=== PATIENT | male | born 1945 | race Caucasian/White ===

== ENCOUNTER 2022-07-09 11:36 | Emergency (ER) | payer OTHER, SELFPAY ==
[2022-07-09 11:47] VITALS: BP 177/75; PULSE 75; RESP 18; TEMP 36.3; O2SAT 98; BMI 23.7
--- NOTE | 2022-07-09 12:05 | CRLHL7_ITS ---
For Patients: As a result of the Century Cures Act, medical imaging exams and procedure reports are released immediately into your electronic medical record. You may view this report before your referring provider. If you have questions, please contact your health care provider. INDICATION: COUGH, PAIN TECHNIQUE: Chest 1 view. COMPARISON: None. FINDINGS: Cardiovascular and mediastinum: Heart size and vasculature are normal in caliber and appearance. Mediastinum is within normal limits. Lungs and pleural space: Lungs are clear. No sign of infiltrate or mass. No sign of pleural effusion. No pneumothorax. Bones and soft tissues: No significant findings. IMPRESSION: Unremarkable chest. Dictated by: Yazan Rushing MD @ 07/09/2022 12:36:07 (Electronically Signed)
--- NOTE | 2022-07-09 12:13 | ED_ITS ---
HPI - General Adult General Time Seen by Provider: 12:14 Date Seen: 07/09/22 Chief complaint: Extremity Pain/Injury, Upper Stated complaint: Cough, pain in shoulder and upper back Time Seen by Provider: 07/09/22 11:43 Source: patient and RN notes reviewed Mode of arrival: ambulatory Limitations: no limitations History of Present Illness HPI narrative: Patient is a 77-year-old diabetic male coming in with concern of possible collapsed left lung. He has been coughing for weeks, probably a month. The cough was worse but he continues to cough. For 4 days he has had some left posterior shoulder pain, upper back pain. It is not hurting with range of motion of his shoulder. He was noticing it more with position changes like sitting up or getting up to walk. Can not really say there was pleuritic. Since he has got here it is actually much better. He has had a prior stroke and a history of a heart attack. He was talking to his sister about the pain and s he has had a collapsed lung before and told him that it may be something of that nature as it sounded similar to her collapsed lung before. He himself has never had a pneumothorax. He went online and did some reading and did become concerned about a collapsed lung. He is not short of breath. He has had no GI symptomatology with this. When he became sick with a cough, had some nasal congestion but never had a fever. Again, right now is not really having any symptoms. Related Data Home Medications Medication Instructions Recorded Confirmed clopidogrel 75 mg tablet mg 07/09/22 glimepiride 1 mg tablet mg 07/09/22 metformin 500 mg tablet,extended mg PO 07/09/22 release 24 hr metoprolol succinate 100 mg mg PO 07/09/22 tablet,extended release 24 hr ramipril 10 mg capsule mg 07/09/22 simvastatin 40 mg tablet mg 07/09/22 triamterene 37.5 cap 07/09/22 mg-hydrochlorothiazide 25 mg capsule Previous Rx's Medication Instructions Recorded blood-glucose transmitter ([employer] #1 ea 07/03/22 G6 Transmitter device) doxycycline monohydrate 100 mg 100 mg PO BID #20 caps 07/09/22 capsule Allergies Allergy/AdvReac Type Severity Reaction Status Date / Time No Known Drug Allergies Allergy Verified 07/09/22 11:50 Review of Systems Status of ROS: Reports: 10 or more systems reviewed and unremarkable except as noted in History and below PFSH PFS Social History Smoking Status: Former smoker Do you use any of these nicotine containing products: None Second hand tobacco smoke exposure: No How often do you have a drink containing alcohol: never AUDIT-C Alcohol total score: 0 Non-prescribed substance use: denies use Exam Const: Vital Signs, click to edit/add: Vital Signs - 24 hr 07/09/22 11:47 07/09/22 14:25 Temperature 97.3 F L Pulse Rate [Right Pulse Oximeter] 75 70 Respiratory Rate 18 16 Blood Pressure [Ri ght Upper Arm] 177/75 H 136/63 Pulse Oximetry 98 98 Oxygen Delivery Me thod Room Air Room Air Documenting provider has reviewed patient's vital signs: yes Common nor mals: no apparent distress, average body habitus, oriented x3, no limitations, healthy appearing, alert and well nourished General appearance: cooperative and comfortable HENMT: Common normals: normocephalic, head/scalp atraumatic, hearing grossly normal bilaterally, external ears normal and external nose normal Head and scalp: normocephalic and atraumatic Nose: external nose normal External ear: external ears normal Eye: Common normals: PERRL, EOMs intact bilaterally, conjunctivae normal and no scleral icterus Conjunctiva: conjunctiva(e) normal Pupil: PERRL Neck & C-Spine: Common normals: full ROM, no lymphadenopathy, supple, no meningeal signs, no JVD and thyroid normal Thyroid: thyroid normal Chest: Common normals: inspection of chest normal (No rash, no overlying skin changes.) and palpation of chest normal (No interscapular pain, no scapular pain on palpation) Resp: Common normals: normal respiratory effort, no retractions, no use of accessory muscles and clear to auscultation bilaterally (I hear good bilateral breath sounds throughout.) Auscultation: clear to auscultation bilaterally (I hear good bilateral breath sounds throughout.) Cardio: Common normals: no JVD, regular rate, regular rhythm, S1 normal heart sound, S2 normal heart sound, no gallops, no clicks and no murmurs Rate: regular rate Rhythm: regular rhythm Heart sounds: S1 normal and S2 normal GI: Common normals: Normal to inspection, nondistended, normoactive bowel sounds present, soft to palpation, non-tender, no hepatosplenomegaly and no masses Palpation: soft and no hepatosplenomegaly Back & Pelvis: Common normals: thoracic and lumbar spine normal to inspection and no thoracic nor lumbar tenderness Extremity: Other: No lower extremity edema, no calf tenderness. No pain over the clavicle or AC joint, no pain over the glenohumeral joint on palpation or with range of motion. Cannot elicit any pain with testing of his rotator cuff. Neuro: Common normals: oriented x3, CN's II-XII intact bilaterally, moves all extremities, no focal motor deficits, no sensory deficits noted and gait normal Sensorium/orientation: alert Meningeal signs: no meningeal signs Speech: speech normal Course Course Hospital Course: Will obtain portable chest x-ray, have reviewed with him I also think that we should do some baseline labs and look at cardiac and possible liver/GI labs. He is in agreement. Right now he is relatively asymptomatic. He is not hypoxic. Besides pneumothorax, other cardiothoracic etiologies such is arrhythmia, ischemic disease/ACS, thromboembolic, infectious pulmonary etiologies are all considerations. He is currently comfortable and without the pain at this time. Reevaluation(s) Reevaluation #1: Reviewed with patient that his chest x-ray showing no pneumothorax. His labs are normal with the exception of a mildly elevated D-dimer. We are going to proceed with chest CT PE protocol after discussion. Time: 13:58 Reevaluation #2: Reviewed CT findings with patient. He remembers a few years ago, had prolonged cough, got an antibiotic and a cough cleared up immediately. He would like to try antibiotics for the ground-glass opacity seen. He understands that he also need a thyroid ultrasound ordered, have given a copy of the CT report. This can be ordered when he follows up with his primary care provider for his diabetes. Time: 15:55 Vital Signs Vital signs: Initial Vital Signs Temperature 97.3 F L 07/09/22 11:47 Temperature Source Temporal Artery Scan 07/09/22 11:47 Pulse Rate 75 07/09/22 11:47 Respiratory Rate 18 07/09/22 11:47 Blood Pressure 177/75 H 07/09/22 11:47 Blood Pressure Mean 109 07/09/22 11:47 Blood Pressure Position Sitting 07/09/22 11:47 Pulse Oximetry 98 07/09/22 11:47 Oxygen Delivery Method 07/09/22 11:47 Vital Signs Temperature 97.3 F L 07/09/22 11:47 Pulse Rate 75 07/09/22 11:47 Respiratory Rate 18 07/09/22 11:47 Blood Pressure 177/75 H 07/09/22 11:47 Pulse Oximetry 98 07/09/22 11:47 Oxygen Delivery Method 07/09/22 11:47 Temperature 97.3 F L 07/09/22 11:47 Pulse Rate 70 07/09/22 14:25 Respiratory Rate 16 07/09/22 14:25 Blood Pressure 136/63 07/09/22 14:25 Pulse Oximetry 98 07/09/22 14:25 Oxygen Delivery Method 07/09/22 14:25 Medical Decision Making Lab Data Labs: Lab Results 07/09/22 07/09/22 07/09/22 Range/Units 12:44 12:44 12:44 WBC 8.01 (4.50-11.00) K/uL RBC 4.11 L (4.30-5.90) m/uL Hgb 13.4 L (13.5-17.5) gm/dL Hct 40.5 (37.0-53.0) % MCV 99 (80-100) fL MCH 33 (26-34) pg MCHC 33 (32-36) gm/dL RDW Coeff of Graciela 12.0 (11.5-15.5) % Plt Count 309 (140-440) K/uL Neut % (Auto) 74.3 H (42.0-72.0) % Lymph % (Auto) 12.9 L (20-44) % Robeson % (Auto) 11.0 (0.0-11.0) % Eos % (Auto) 1.1 (0.0-7.0) % Baso % (Auto) 0.5 (0.0-3.0) % Neut # (Auto) 6.00 (1.7-7.0) K/uL Lymph # (Auto) 1.00 (0.90-2.90) K/uL Robeson # (Auto) 0.90 (0.00-0.90) K/UL Eos # (Auto) 0.09 (0.00-0.50) K/uL Baso # (Auto) 0.04 (0.00-0.30) K/uL Abs Immat Gran (auto) 0.02 (0.00-0.30) K/uL Imm/Tot Granulo (auto) 0.2 % D-Dimer Quant (PE/DVT) 0.84 H (0.00-0.50) ug/ml Sodium 135 (135-149) mmol/L Potassium 4.6 (3.6-5.1) mmol/L Chloride 97 (96-114) mmol/L Carbon Dioxide 24 (20-32) mmol/L BUN 30 (7-30) mg/dL Creatinine 1.5 (0.5-1.5) mg/dL Estimated Creat Clear 42.58 Estimated GFR 48 ml/min Glucose 109 (60-115) mg/dL Calcium 9.5 (8.4-10.6) mg/dL Total Bilirubin 0.3 (0.1-1.5) mg/dL Direct Bilirubin 0.2 (0.0-0.5) mg/dL AST 20 (12-35) U/L ALT 18 (4-50) U/L Alkaline Phosphatase 83 (40-150) U/L C-Reactive Protein 0.5 (0.5-1.0) mg/dL NT-Pro-B Natriuret Pep 162 (0-450) PG/mL Total Protein 7.1 (6.0-8.3) g/dL Albumin 4.6 (3.3-5.0) g/dL POC Troponin I (0.01-0.04) ng/ml 07/09/22 Range/Units 12:45 WBC (4.50-11.00) K/uL RBC (4.30-5.90) m/uL Hgb (13.5-17.5) gm/dL Hct (37.0-53.0) % MCV (80-100) fL MCH (26-34) pg MCHC (32-36) gm/dL RDW Coeff of Graciela (11.5-15.5) % Plt Count (140-440) K/uL Neut % (Auto) (42.0-72.0) % Lymph % (Auto) (20-44) % Robeson % (Auto) (0.0-11.0) % Eos % (Auto) (0.0-7.0) % Baso % (Auto) (0.0-3.0) % Neut # (Auto) (1.7-7.0) K/uL Lymph # (Auto) (0.90-2.90) K/uL Robeson # (Auto) (0.00-0.90) K/UL Eos # (Auto) (0.00-0.50) K/uL Baso # (Auto) (0.00-0.30) K/uL Abs Immat Gran (auto) (0.00-0.30) K/uL Imm/Tot Granulo (auto) % D-Dimer Quant (PE/DVT) (0.00-0.50) ug/ml Sodium (135-149) mmol/L Potassium (3.6-5.1) mmol/L Chloride (96-114) mmol/L Carbon Dioxide (20-32) mmol/L BUN (7-30) mg/dL Creatinine (0.5-1.5) mg/dL Estimated Creat Clear Estimated GFR ml/min Glucose (60-115) mg/dL Calcium (8.4-10.6) mg/dL Total Bilirubin (0.1-1.5) mg/dL Direct Bilirubin (0.0-0.5) mg/dL AST (12-35) U/L ALT (4-50) U/L Alkaline Phosphatase (40-150) U/L C-Reactive Protein (0.5-1.0) mg/dL NT-Pro-B Natriuret Pep (0-450) PG/mL Total Protein (6.0-8.3) g/dL Albumin (3.3-5.0) g/dL POC Troponin I 0.00 L (0.01-0.04) ng/ml Imaging Data Chest x-ray: Attestation: I have reviewed the pertinent imaging results. My impression: On my preliminary read, I see no acute cardiopulmonary change. Specifically no pneumothorax, no infiltrate. Await Radiology over-read. Radiologist's impression: Patient: CINTHYA HARTLEY Facility:?[facility] Patient ID:?[id number] Site Patient ID:?[id number]. Site :?1945 Study:?XRay Chest PORTABLE-07/09/2022 12:18:16 PM Ordering Physician:?Filipe Conway Final Report: INDICATION: COUGH, PAIN TECHNIQUE: Chest 1 view. COMPARISON: None. FINDINGS: Cardiovascular and mediastinum: Heart size and vasculature are normal in caliber and appearance. Mediastinum is within normal limits. Lungs and pleural space: Lungs are clear. No sign of infiltrate or mass. No sign of pleural effusion. No pneumothorax. Bones and soft tissues: No significant findings. IMPRESSION: Unremarkable chest. Dictated by: Yazan Rushing MD @ 07/09/2022 12:36:07 (Electronic Signature) CT scan - chest: Attestation: I have reviewed the pertinent imaging results. Radiologist's impression: Patient: CINTHYA HARTLEY Facility:?[facility] Patient ID:?[id number] Site Patient ID:?[id number]. Site :?1945 Study:?CT Chest Angio 95CC ISOVUE 370-07/09/2022 2:44:03 PM Ordering Physician:?Filipe Conway Final Report: INDICATION: Left chest pain, elevated D-dimer. TECHNIQUE: CT chest PE was acquired with 95 mL Isovue 370 IV contrast. Coronal and sagittal reformats were generated. COMPARISON: None. FINDINGS: Pulmonary arteries: The quality of enhancement of the pulmonary arteries is adequate. No filling defects to suggest pulmonary emboli. No findings of pulmonary artery hypertension. Thyroid: Enlarged right thyroid lobe, with multiple hypodense foci. Thoracic lymph nodes: No enlarged supraclavicular, mediastinal, hilar, or axillary lymph nodes. Mediastinum and esophagus: Unremarkable. Heart and vasculature: Unremarkable. Lungs: Vague focus of ground-glass opacity in right upper lobe (5/53). New concerning pulmonary nodules or focal consolidations. Right basilar scarring. Pleura: Unremarkable. Chest wall: Unremarkable. Upper abdomen: No acute or significant findings. Bones: Unremarkable for age. IMPRESSION: 1. No pulmonary embolism. 2. Vague right upper lobe ground-glass opacity could be inflammatory change or atelectasis. 3. Enlarged heterogeneous right thyroid lobe could be multinodular goiter. Consider correlation with nonemergent thyroid ultrasound if not already performed. Please note that all CT scans at this facility use dose modulation, iterative reconstruction, and/or weight-based dosing when appropriate to reduce radiation dose to as low as reasonably achievable. Dictated by Aldair Chavez MD @ 07/09/2022 3:45:51 PM (Electronic Signature) ECG Data Attestation: I personally reviewed and interpreted this ECG as follows: (Sinus rhythm with first-degree AV block, 74 beats per minute. Flipped T-waves V1 through V3 but no ST segment changes. QT corrected 401 milliseconds.) Prior ECG tracings: not available for review Critical Care Time Critical Care Time Critical Care Time: No Discharge Plan Discharge Clinical Impression: Left-sided chest pain, Cough, Abnormal imaging of thyroid, Ground glass opacity present on imaging of lung Condition: Stable Instructions: Chest Pain (ED), Acute Cough (ED), Chest Wall Pain (ED) Additional Instructions: Start antibiotic and take as prescribed. Take CT report to your follow-up visit in get to the thyroid ultrasound scheduled. Alternatively, could call your primary care provider and see if they will order this ahead of time. If you develop increasing chest pain, difficulty breathing no or shortness of breath, worsening cough, develops fever, do need to be re-evaluated and would consider reimaging with followup chest CT. Activity Level: Activity as Tolerated Prescriptions: New doxycycline monohydrate 100 mg capsule 100 mg PO BID Qty: 20 0RF No Action metoprolol succinate 100 mg tablet extended release 24 hr PO clopidogrel 75 mg tablet triamterene-hydrochlorothiazid 37.5-25 mg capsule simvastatin 40 mg tablet glimepiride 1 mg tablet metformin 500 mg tablet extended release 24 hr PO ramipril 10 mg capsule (DME) Dexcom G6 Transmitter Device See Rx Instructions .Route Qty: 1 0RF Rx Instructions: As directed Follow Up/Referrals: Chilango Beebe MD [Primary Care Provider] - Stand Alone [facility]: [facility]
--- OUTSIDE RECORDS SUMMARY | 2022-07-09 12:38 | XMS_ITS | Encounter Summary ---
:1945 Author Organization [facility] Address [address] [place] [id number] Care Team Providers Name Role Phone Andrey Tamez MD Primary Care Provider Encounter Details Date Type Department Care Team Description 10/03/2020 [facility] [address] [place] [id number] Social History Tobacco Use Types Packs/Day Years Used Date Smoking Tobacco: Former Cigarettes 0.5 16 Quit : 09/06/1978 Smokeless Tobacco: Never Alcohol Use Standard Drinks/Week Comments Yes 10 (1 standard drink = 0.6 oz pure alcoh ol) A drink every 1-2 weeks. 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
--- OUTSIDE RECORDS SUMMARY | 2022-07-09 12:38 | XMS_ITS | Clinical Summary ---
:1945 Author Organization [place] Address [address] [place] [address] Care Team Providers Name Role Phone Andrey Tamez MD Primary Care Provider Allergies Active Allergy Reactions Severity Noted Date Comments No Known Drug Allergies 10/27/2000 Medications Medication Sig Dispensed Refills Start Date End Date Status ASPIRIN NOT by Other route 0 12/10/2010 Ac tive PRESCRIBED, continuous prn. INTENTIONAL,Indicati ons: CAD (coronary artery disease) blood glucose (PEPE Use to test blood 100 strip 0 01/31/2014 Active CONTOUR) STRP test sugars once daily or stripIndications: as directed. Type 2 diabetes, HbA1C goal < 8% (H) Additional Information Patient not taking. Reported on 07/07/2017 blood glucose monitoring Use to test blood 100 each 0 017 Active (ACCU-CHEK SILVIA PLUS) test sugar 1 times daily or stripIndications: Type 2 as directed. diabetes mellitus with other circulatory complications (H) order for DME Equipment being ordered: All diabetic supplies including meter, test strips, lancets and solution for testing two times per day. Use brand covered by insurance. 3 Month 1 10/14/2016 Active Profile Rx: patient will contact pharmacy when needed blood glucose monitoring (NO Previously has used 1 kit 1 0 09/07/2017 Active BRAND SPECIFIED) meter device Accu-Chek. Use to test kitIndications: Type 2 blood sugar once daily diabetes mellitus with other or as directed. circulatory complication, without long-term current use of insulin (H) blood glucose monitoring (NO Use to test blood 100 strip 3 10/2017 Active BRAND SPECIFIED) test sugars once daily or stripIndications: Type 2 as directed diabetes mellitus with other circulatory complication, without long-term current use of insulin (H) simvastatin (ZOCOR) 40 MG TAKE ONE TABLET BY 90 tablet 1 04/22 Active tabletIndications: MOUTH AT BEDTIME . may Hyperlipidemia LDL goal <100 take every other day if muscle aches ramipril (ALTACE) 10 MG TAKE ONE CAPSULE BY 180 capsule 1 04/06 Active capsuleIndications: Coronary MOUTH TWICE DAILY artery disease involving marshall coronary artery of [place] heart, angina presence unspecified clopidogrel (PLAVIX) 75 MG TAKE ONE TABLET BY 90 tablet 1 04/06 Active tabletIndications: Coronary MOUTH ONE TIME DAILY artery disease involving [place]all coronary artery of [place] heart, angina presence unspecified metoprolol tartrate TAKE ONE TABLET BY 180 tablet 1 04/22/2018 Active (LOPRESSOR) 100 MG MOUTH TWICE DAILY tabletIndications: Coronary artery disease involving [place] coronary artery of [place] heart, angina presence unspecified metFORMIN (GLUCOPHAGE) 500 MG TAKE ONE TABLET THREE 270 tablet 0 04/27/2018 Active tabletIndications: Type 2 TIMES A DAY WITH diabetes mellitus with other MEALS. circulatory complication, without long-term current use of insulin (H) blood glucose (ACCU-CHEK Check glucose once 50 each 0 2018 Active SMARTVIEW) test daily. Need to stripIndications: Type 2 schedule office visit diabetes mellitus with other with Dr Dashawn MILLS. circulatory complication, without long-term current use of insulin (H) Active Problems Problem Noted Date Type 2 diabetes mellitus with diabetic polyneuropathy 02/07/2016 Coronary artery disease involving marshall coronary malcolm ry of marshall heart, 10/18/2015 angina presence unspecified Overview: Replacing diagnoses that were inactivate d after the 06/06/2021 regulatory import. Type 2 diabetes mellitus with circulatory disorder, [facility] long-term 06/24/2015 current use of insulin Advanced directives, counseling/discussion 02/07/2015 Overview: Information given to pt to take home and review. 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 Provider to review HYPERLIPIDEMIA LDL GOAL <100 07/06/2010 CAD (coronary artery disease) Resolved Problems Problem Noted Date Resolved Date Type 2 diabetes mellitus with circulatory disorder 0 06/24/2015 Erectile dysfunction 06/10/2010 06/10/2010 Mixed hyperlipidemia 12/10/2010 Diabetes mellitus, type 2 12/10/2010 Overview: Problem list name updated by automated p rocess. Provider to review Hyperlipidemia 12/10/2010 Overview: Problem list name updated by automated p rocess. Provider to review Immunizations Name Administration Dates Next Due COVID-19,PF,Pfizer (12+ Yrs) 10/24/2020, 10/03/2020 Influenza (High Dose) 3 valent vaccine 05/26/2018, 3 Influenza (IIV3) PF 07/03/2002 Pneumococcal 23 valent 02/19/2011 TD (ADULT, 7+) 10/27/2000 10/27/2010 TDAP Vaccine (Adacel) 02/19/2011 Zoster vaccine, live 06/02/2014 Family History Medical History Relation Comments Cancer Father bladder removal with cystoscopy Respiratory Father age 86, had emp hysema Diabetes Mother type 2 Gastrointestinal Disease Mother gallbladder Heart Disease Mother age 74, had kid jabier failure, heart/liver problems . Chronic Obstructive Pulmonary Disease Sister Heart Disease Sister Born ~1950 Thyroid Disease Sister Relation Status Comments Father Mother Sister Social History Tobacco Use Types Packs/Day Years Used Date Smoking Tobacco: Former Cigarettes 0.5 16 Quit : 09/06/1978 Smokeless Tobacco: Never Tobacco Cessation: Counseling Given: No Alcohol Use Standard Drinks/Week Comments Yes 10 (1 standard drink = 0.6 oz pure alcoh ol) A drink every 1-2 weeks. 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 Last Filed Vital Signs Vital Sign Reading Time Taken Comments Blood Pressure 136/70 09/07/2017 8:13 AM MANAGER EMPLOYEE RELATIONS Pulse 71 09/07/2017 8:13 AM MANAGER EMPLOYEE RELATIONS Temperature 36.7 ??C (98.1 ??F) 09/07/2017 8:13 AM MANAGER EMPLOYEE RELATIONS Respiratory Rate 12 02/07/2016 9:09 AM CDT Oxygen Saturation 100% 09/07/2017 8:13 AM MANAGER EMPLOYEE RELATIONS Inhaled Oxygen Concentration - - Weight 80.7 kg (178 lb) 09/07/2017 8:13 AM MANAGER EMPLOYEE RELATIONS Height 176 cm (5' 9.29) 09/07/2017 8:13 AM MANAGER EMPLOYEE RELATIONS Body Mass Index 26.07 09/07/2017 8:13 AM MANAGER EMPLOYEE RELATIONS Plan of Treatment Health Maintenance Due Date Last Done Comments ANNUAL REVIEW OF HM ORDERS 1945 HEPATITIS C SCREENING 1963 LUNG CANCER SCREENING 1995 ZOSTER IMMUNIZATION (2 of 07/28/2014 06/02/2014 3) DIABETIC FOOT EXAM 02/06/2017 02/07/2016, 02/07/2016 FALL RISK ASSESSMENT 07/07/2018 07/07/2017, 02/07/2016, 02/07/2015, Additional history exists MEDICARE ANNUAL WELLNESS 09/07/2018 09/07/2017, 10/27/2000 VISIT EYE EXAM 10/18/2018 10/18/2017 A1C 10/29/2018 04/28/2018, 09/07/2017, 06/18/2017, Additional history exists BMP 04/28/2019 04/28/2018, 09/07/2017, 06/18/2017, Additional history exists LIPID 04/28/2019 04/28/2018, 09/07/2017, 06/18/2017, Additional history exists MICROALBUMIN 04/28/2019 04/28/2018, 02/07/2016, 01/24/2015, Additional history exists ADVANCE CARE PLANNING 02/08/2020 02/07/2015, 02/07/2015 COVID-19 Vaccine (3 - 12/19/2020 10/24/2020, 10/03/2020 Booster for Pfizer series) DTAP/TDAP/TD IMMUNIZATION 02/19/2021 02/19/2011, 10/27/2000 , (3 - Td or Tdap) 10/27/2000 PHQ-2 (once per calendar 09/06/2021 09/07/2017, 07/07/2017, year) 02/07/2016 INFLUENZA VACCINE (#1) 2022 05/02/2020, 06/19/2019, 05/26/2018, Additional history exists COLONOSCOPY Discontinued 10/26/2011, 10/26/2011 COLORECTAL CANCER Discontinued SCREENING Pneumococcal Vaccine: 65+ Completed 10/17/2018, 02/19/[address] COLONOGRAPHY Discontinued FIT-DNA (Cologuard) Discontinued FIT Discontinued FLEX SIG Discontinued IPV IMMUNIZATION Aged Out No longer eligi ble based on patient 's age to complete this topic MENINGITIS IMMUNIZATION Aged Out No longe r eligible based on patient 's age to complete this topic Insurance Payer Benefit Plan / Subscriber ID Effective Phone Address T ype Group Dates [facility] [id number] 2018-Pres [phone] [address] HMO MEDICARE ADVANTAGE ent [address] [place] [address] 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 [place] [address] Care Teams Legal Administrative Secretary Relationship Specialty Start Date End Date Andrey Tamez MD PCP - General 03/26/09
--- OUTSIDE RECORDS SUMMARY | 2022-07-09 12:38 | XMS_ITS | Encounter Summary ---
:1945 Author Organization [place] Address [address] [place] [address] Care Team Providers Name Role Phone Andrey Tamez MD Primary Care Provider Andrey Tamez MD Unavailable Andrey Tamez MD Unavailable Encounter Details Date Type Department Care Team Description 04/28/2018 Orders Only [facility] Typ e 2 diabetes mellitus with other circulatory complication, without long-term current use of insulin (H); [facility] Hyperlipidemia LDL goal <[address] [place] [address] Social History Tobacco Use Types Packs/Day Years Used Date Smoking Tobacco: Former Cigarettes 0.5 16 Quit : 09/06/1978 Smokeless Tobacco: Never Alcohol Use Standard Drinks/Week Comments Yes 10 (1 standard drink = 0.6 oz pure alcoh ol) A drink every 1-2 weeks. 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 long-term current use of insulin (H) LIPID REFLEX TO Routine 04/28/2018 8:14 Hyperlipidemia LDL Res ults for this DIRECT LDL PANEL AM CDT goal <100 procedure a re in the results section. HEMOGLOBIN A1C Routine 04/28/2018 8:14 Type 2 diabetes Results for this AM CDT mellitus with other procedur e are in circulatory the results complication, without sectio n. long-term current use of insulin (H) COMPREHENSIVE Routine 04/28/2018 8:14 Hyperlipidemia LDL Resul ts for this METABOLIC PANEL AM CDT goal <100 procedure ar e in the results section. documented in this encounter Results Albumin Random Urine Quantitative with Creat Ratio (04/28/2018 8:15 AM CDT) P athologist Signature Creatinine 83 mg/dL 04/28/2018 [place] Urine 3:50 PM CDT [facility] Albumin Urine 13 mg/L 04/28/2018 [place] mg/L 3:50 PM CDT [facility] Albumin Urine 15.64 0 - 17 04/28/2018 [place] mg/g Cr mg/g Cr 3:50 PM CDT [facility] Specimen Anatomical Collection Method Collection Time Receive d Time (Source) Location / / Volume Laterality Urine specimen 04/28/2018 8:15 AM 018 8:20 (specimen) CDT AM CDT Andrey Tamez MD LAB - URINE ORDERABLES Performing Organization Address City/State/ZIP Code Phon e Number [facility] [address] [place] [address] (ABNORMAL) Lipid panel reflex to direct LDL Fasting (04/28/2018 8:14 AM CDT) Analysis Performed At Patho logist Time Signature Cholesterol 133 <200 mg/dL 04/28/2018 [place] 2:06 PM T [facility] Triglycerides 191 (H) <150 mg/dL 04/28/2018 [place] 2:06 PM T [facility] Comment: Borderline high: ??150-199 mg/dl High: ? 200-499 mg/dl Very high: ? >499 mg/dl Fasting specimen HDL Cholesterol 36 (L) >39 mg/dL 04/28/2018 2:[address] [facility] LDL Cholesterol 59 <100 mg/dL 04/28/2018 2:06 PM [facility] Calculated CDT [facility] Comment: Desirable: <100 mg/dl Non HDL Cholesterol 97 <130 mg/dL 04/28/2018 2:06 PM CDT [facility] Specimen Anatomical Collection Method Collection Time Receive d Time (Source) Location / / Volume Laterality Blood specimen 04/28/2018 8:14 AM 018 8:19 (specimen) CDT AM CDT Andrey Tamez MD LAB - BLOOD ORDERABLES Performing Organization Address City/State/ZIP Code Phon e Number [facility] [address] [place] [address] (ABNORMAL) Comprehensive metabolic panel (04/28/2018 8:14 AM CDT) Analysis Performed At Patho logist Time Signature Sodium 139 133 - 144 04/28/2018 [place] mmol/L 2:06 PM CDT [facility] Potassium 4.5 3.4 - 5.3 04/28/2018 [place] mmol/L 2:06 PM CDT [facility] Chloride 103 94 - 109 04/28/2018 [place] mmol/L 2:06 PM CDT [facility] Carbon Dioxide 27 20 - 32 04/28/2018 [place] mmol/L 2:06 PM CDT [facility] Anion Gap 9 3 - 14 04/28/2018 [place] mmol/L 2:06 PM CDT [facility] Glucose 140 (H) 70 - 99 04/28/2018 [place] mg/dL 2:06 PM CDT [facility] Comment: Fasting specimen Urea Nitrogen 17 7 - 30 mg/dL 04/28/2018 2:06 PM CDT [facility] Creatinine 1.18 0.66 - 1.25 mg/dL 04/28/2018 2:06 PM CD T [facility] GFR Estimate 61 >60 mL/min/1.7m2 04/28/2018 2:06 PM C DT [facility] Comment: Non GFR Calc GFR Estimate If 73 >60 mL/min/1.7m2 04/28/2018 2:06 P [facility] Black CDT [facility] Comment: GFR Calc Calcium 9.0 8.5 - 10.1 04/28/2018 2:06 PM [place] [facility] mg/dL T [facility] Bilirubin Total 0.5 0.2 - 1.3 04/28/2018 2:06 PM [facility] mg/dL CDT [facility] Albumin 3.7 3.4 - 5.0 g/dL 04/28/2018 2:06 PM [facility] CDT [facility] Protein Total 6.7 (L) 6.8 - 8.8 g/dL 04/28/2018 2:06 PM [facility] Alkaline Phosphatase 72 40 - 150 U/L 04/28/2018 2:06 PM [facility] ALT 21 0 - 70 U/L 04/28/2018 2:06 PM [facility] AST 16 0 - 45 U/L 04/28/2018 2:06 PM [facility] T [facility] Specimen Anatomical Collection Method Collection Time Receive d Time (Source) Location / / Volume Laterality Blood specimen 04/28/2018 8:14 AM 018 8:19 (specimen) CDT AM CDT Andrey Tamez MD LAB - BLOOD ORDERABLES Performing Organization Address City/State/ZIP Code Phon e Number [facility] [address] [place] [address] (ABNORMAL) Hemoglobin A1c (04/28/2018 8:14 AM CDT) Analysis Performed At Patho logist Time Signature Hemoglobin A1C 7.3 (H) 0 - 5.6 % 04/28/2018 [place] 8:54 AM CDT [facility] Comment: Normal <5.7% Prediabetes 5.7-6.4% ??Diab etes 6.5% or higher - adopted from ADA consensus guidelines. Specimen Anatomical Collection Method Collection Time Receive d Time (Source) Location / / Volume Laterality Blood specimen 04/28/2018 8:14 AM 018 8:19 (specimen) CDT AM CDT Andrey Tamez MD LAB - BLOOD ORDERABLES Performing Organization Address City/State/ZIP Code Phon e Number [facility] [address] [place], [place] [address] [address] documented in this encounter Visit Diagnoses Diagnosis 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, without long-term current use of insulin (H) Hyperlipidemia LDL goal <100 Other and unspecified hyperlipidemia documented in this encounter Care Teams Fence Rider Relationship Specialty Start Date End Date Andrey Tamez MD PCP - General 03/26/09 Andrey Tamez MD PCP - Assigned PCP 09/11/12 11/08/18 [address] [place], [place] [phone] Andrey Tamez MD Assigned PCP 09/11/12 09/07/20 [address] [place] [address] documented as of this encounter
--- OUTSIDE RECORDS SUMMARY | 2022-07-09 12:38 | XMS_ITS | Encounter Summary ---
:1945 Author Organization [place] Address [address] [place] [address] Care Team Providers Name Role Phone Andrey Tamez MD Primary Care Provider Andrey Tamez MD Unavailable Andrey Tamez MD Unavailable Reason for Visit Reason Comments Medication Refill ACCU-CHEK SMARTVIEW test str ip Encounter Details Date Type Department Care Team Description 10/10/2018 Refill [facility] Andrey Tamez MD Medication Refill Clinic [place] [address] (ACCU-CHEK SMARTVIEW [address] test strip) [place] [address] [place], [place] [phone] (Wo rk) [address] [phone] Social History Tobacco Use Types Packs/Day Years Used Date Smoking Tobacco: Former Cigarettes 0.5 16 Quit : 09/06/1978 Smokeless Tobacco: Never Alcohol Use Standard Drinks/Week Comments Yes 10 (1 standard drink = 0.6 oz pure alcoh ol) A drink every 1-2 weeks. 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 RACTIVE MARKETING STRATEGIST Telephone Encounter - Betty Choe - 10/10/2018 11:39 AM CST Requested Prescriptions Pending Prescriptions Disp Refills ??? ACCU-CHEK SMARTVIEW test strip [Pharmacy Med Name: Accu-Chek SmartView In Vitro Strip] 50 each 2 Last Written Prescription Date: 09/07/2017 Last Fill Quantity: 100 Strip, # refills: 3 Last office visit: 09/07/2017 with prescribing provider: Future Office Visit: Sig: USE TO TEST BLOOD SUGARS ONCE DAILY OR DIRECTED Diabetic Supplies Protocol Failed - 10/10/2018 9:08 AM Failed - Recent (6 mo) or future (30 days) visit within the authorizing provider's specialty Patient had office visit in the last 6 months or has a visit in the next 30 days with authorizing provider. See Patient Info tab in inbasket, or Choose Columns in Meds & Orders section of the refill encounter. Passed - Medication is active on med list Passed - Patient is 18 years of age or older RACTIVE MARKETING STRATEGIST documented in this encounter Plan of Treatment Not on filedocumented as of this encounter Visit Diagnoses Diagnosis 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, without long-term current use of insulin (H) - Primary documented in this encounter Care Teams On Site Nurse Relationship Specialty Start Date End Date Andrey Tamez MD PCP - General 03/26/09 Andrey Tamez MD PCP - Assigned PCP 09/11/12 11/08/18 [address] [place] [address] Andrey Tamez MD Assigned PCP 09/11/12 09/07/20 [address] [place] [address] documented as of this encounter
--- OUTSIDE RECORDS SUMMARY | 2022-07-09 12:39 | XMS_ITS | Encounter Summary ---
:1945 Author Organization [place] Address [address] [place] [address] Care Team Providers Name Role Phone Andrey Tamez MD Primary Care Provider Andrey Tamez MD Unavailable Andrey Tamez MD Unavailable Reason for Visit Reason Onset Date Comments Patient Request 06/17/2017 Med Refill Encounter Details Date Type Department Care Team Description 06/17/2017 [facility] Andrey Tamez MD Patient Request ([facility] [place] [address] Refill ) [address] [place] [address] [place], [place] [phone] (Wo rk) [address] [phone] Social History Tobacco Use Types Packs/Day Years Used Date Smoking Tobacco: Former Cigarettes 0.5 16 Quit : 09/06/1978 Smokeless Tobacco: Never Alcohol Use Standard Drinks/Week Comments Yes 10 (1 standard drink = 0.6 oz pure alcoh ol) A drink every 1-2 weeks. 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 Pt states he understands that he should have scheduled sooner and is not expecting to be worked in. States he is fine with waiting until scheduled apt 09/07/17 as long as he can get his meds filled until apt. Pt due for px so working pt in for a short apt will not solve the fact that he needs a physical. 09/07/17 apt changed to a physical. Discussed that A1c continues to be high since last lab over a year ago. Med check apt scheduled 07/07. Meds refilled for one month. Telephone Encounter - Lakia Skinner CMA - 06/21/2017 1:01 PM CDT Left V/M for pt to call back. Can put in Dr Oreilly same day spots as he is booked full the rest of the year. He had labs done last week-so doesn't need to be in AM slot. Telephone Encounter - Andrey Tamez MD - 06/20/2017 7:01 PM CDT Okay to work in for an appt before the end of this year. We can refill Rx's for one month supply at a time. Telephone Encounter - Aditi Yeager - 06/17/2017 3:05 PM CDT 4 medications came from [facility] in [place]. He hasn't been seen for almost 1.5 Years. Maybe he should see someone else. There are so many people begging to get in with and since this hai waited so long to call, maybe he should see someone else and not get preferential treatment. It's up to . Metoprolol, Clopidogrel, Simvastatin and Ramipril. Telephone Encounter - Salvador Cain RN - 06/17/2017 2:32 PM CDT Dashawn-see below. Did you want to fit in, or ok for 09/07/17 appt? Telephone Encounter - Salvador Thompson - 06/17/2017 2:09 PM CDT Reason for Call: Other appointment Detailed comments: Pt due for Med Check appt, not able to get in with PCP (who he wants) until September. Schedule fasting lab appt 06/18/17 and Med Chech appt 09/07/17. Will need refills on meds before September. Can provider get pt in sooner or is PCP able to okay meds from 06/18/17 labs that will be drawn. Will be calling in his medications as they come due. Phone Number Patient can be reached at: Cell number on file: Telephone Information: Best Time: anytime Can we leave a detailed message on this number? YES Call taken on 06/17/2017 at 2:12 PM by SALVADOR THOMPSON documented in this encounter Plan of Treatment Not on filedocumented as of this encounter Visit Diagnoses Diagnosis Coronary artery disease involving [place] coronary artery of [place] heart, angina presence unspecified Hyperlipidemia LDL goal <100 Other and unspecified hyperlipidemia documented in this encounter Care Teams Editing Clerk Relationship Specialty Start Date End Date Andrey Tamez MD PCP - General 03/26/09 Andrey Tamez MD PCP - Assigned PCP 09/11/12 11/08/[address] [place] [address] Andrey Tamez MD Assigned PCP 09/11/12 09/07/[address] [place] [address] documented as of this encounter
--- OUTSIDE RECORDS SUMMARY | 2022-07-09 12:39 | XMS_ITS | Encounter Summary ---
:1945 Author Organization [place] Address [address] [place] [id number] Care Team Providers Name Role Phone Andrey Tamez MD Primary Care Provider Andrey Tamez MD Unavailable Andrey Tamez MD Unavailable Reason for Visit Reason Comments Diabetes Follow up. Wondering if an i ncrease in his Metformin would be appropriate? Feels like he i s on the higher end of where he should be, but also feels like the Metformin really helped with his neuropathy and wondering a d ose increase might help with the neuropathy even more? Recheck Medication Would like hard copy for DM testing supplies(he gets his Rx's at [facility], but he has to go to [facility] for his test strips). Encounter Details Date Type Department Care Team Description 02/07/2015 Office Visit [facility] Andrey Tamez, Type 2 diabetes, HbA1C goal < 8% (H) (Primary Dx); [facility] Unspecified essential hypertension; [address] Coronary malcolm ry disease due to lipid rich plaque; [address] Hyperlipidemia LDL goal <100; [place], [place], [place] Advanced di rectives, counseling/discussion [id number] Social History Tobacco Use Types Packs/Day Years Used Date Smoking Tobacco: Former Cigarettes 0.5 16 Quit : 09/06/1978 Smokeless Tobacco: Never Alcohol Use Standard Drinks/Week Comments Yes 10 (1 standard drink = 0.6 oz pure alcoh ol) A drink every 1-2 weeks. 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 encounter Last Filed Vital Signs Vital Sign Reading Time Taken Comments Blood Pressure 124/70 02/07/2015 10:20 AM CDT Pulse 64 02/07/2015 10:20 AM CDT Temperature 36.6 ??C (97.9 ??F) 02/07/2015 10:20 AM CDT Respiratory Rate - - Oxygen Saturation 95% 02/07/2015 10:20 AM CDT Inhaled Oxygen Concentration - - Weight 82.3 kg (181 lb 8 oz) 02/07/2015 10:20 AM CDT Height 174.6 cm (5' 8.75) 02/07/2015 10:20 AM CDT Body Mass Index 27 02/07/2015 10:20 AM CDT documented in this encounter Patient Instructions Patient InstructionsAndrey Tamez MD - 02/07/2015 10:41 AM CDT Keep up the good work with exercise. Try to monitor carbohydrate portions. Raise metformin to 500 mg three times a day (one with each meal). No other med changes. Please see me back in about four months, with fasting labs in advance again. documented in this encounter Progress Notes Andrey Tamez MD - 02/07/2015 10:06 AM CDT SUBJECTIVE: Rodolfo Quevedo is a 69 year old male who presents to clinic today for the following health issues: diabetes mellitus, hyperlipidemia, hypertension, coronary artery disease. Diabetes Follow-up ?? Patient is checking blood sugars: 3-4 times per week, fasting BS is normally around 120-130. Occasional high readings (highest has been around 190) ?? Diabetic concerns: None ?? Symptoms of hypoglycemia (low blood sugar): none ?? Paresthesias (numbness or burning in feet) or sores: Yes Feels like this has improved since starting Metformin ?? Date of last diabetic eye exam: Over one year ago, knows he is due. ?? Amount of exercise or physical activity: Water aerobics one hour 3-5 times per week, walks some days as well. ?? Problems taking medications regularly: No ?? Medication side effects: none ?? Diet: Admits his diet has not been as good as it can be, thinks this may be why his numbers have been worse lately. He would like to improve upon his glycemic control. We discussed raising his metformin to 500 mg TIDwith meals. He is exercising several times per week, including water aerobics and land exercise. He admits that he could improve upon his eating habits. AM glucoses run in the 125-135 region when checked. No angina or CHF symptoms. Past medical, family and social histories as well as medications reviewed and updated as needed. No dyspnea or cough. No chest discomfort, dizziness or palpitations. No diarrhea, abdominal pain or rectal bleeding. No acute problems with vision or speech, lateralizing weakness or paresthesias. ROS: as above or negative for Respiratory, CV, GI, endocrine, neuro systems. OBJECTIVE: BP 124/70 mmHg Pulse 64 Temp(Src) 97.9 ??F (36.6 ??C) (Oral) Ht 5' 8.75 (1.746 m) Wt 181 lb8 oz (82.328 kg) BMI 27.01 kg/m2 SpO2 95% Body mass index is 27.01 kg/(m^2). GENERAL: healthy, alert, well nourished, well hydrated, no distress NECK: no tenderness, no adenopathy, no asymmetry, no masses, no stiffness; thyroid- normal to palpation RESP: lungs clear to auscultation - no rales, no rhonchi, no wheezes CV: regular rates and rhythm, normal S1 S2, no S3 or S4 and no murmur, no click or rub - ASSESSMENT/PLAN: (250.00) Type 2 diabetes, HbA1C goal < 8% (primary encounter diagnosis) Comment: Raise dose of metformin as ordered, take TID with meals. Work on carbohydrate portions. Continue regular exercise. Plan: metFORMIN (GLUCOPHAGE) 500 MG tablet, simvastatin (ZOCOR) 40 MG tablet, ORDER FOR DME, SET TO LOCAL PRINT, (401.9) Unspecified essential hypertension Comment: BP at target. Continue current meds. Plan: ramipril (ALTACE) 10 MG capsule, metoprolol (LOPRESSOR) 100 MG tablet (414.00, 414.3) Coronary artery disease due to lipid rich plaque Comment: No recent angina or CHF. Plan: clopidogrel (PLAVIX) 75 MG tablet (272.4) Hyperlipidemia LDL goal <100 Comment: LDL at target. Continue current meds. Plan: simvastatin (ZOCOR) 40 MG tablet (V65.49) Advanced directives, counseling/discussion Plan: FALL RISK ASSESSMENT Patient Instructions Keep up the good work with exercise. Try to monitor carbohydrate portions. Raise metformin to 500 mg three times a day (one with each meal). No other med changes. Please see me back in about four months, with fasting labs in advance again. Andrey Tamez MD, [facility] documented in this encounter Nursing Notes Katherin Burton CMA - 02/07/2015 10:21 AM CDT Chief Complaint Patient presents with ??? Diabetes Follow up. Wondering if an increase in his Metformin would be appropriate? Feels like he is on the higher end of where he should be, but also feels like the Metformin really helped with his neuropathyand wondering a dose increase might help with the neuropathy even more? Recheck Medication Would like hard copy for DM testing supplies(he gets his Rx's at [facility], but he has to go to [facility] for his test strips). Initial BP 140/74 mmHg Pulse 64 Temp(Src) 97.9 ??F (36.6 ??C) (Oral) Ht 5' 8.75 (1.746 m) Wt 181 lb 8 oz (82.328 kg) BMI 27.01 kg/m2 SpO2 95% Estimated body mass index is 27.01 kg/(m^2) ascalculated from the following: Height as of this encounter: 5' 8.75 (1.746 m). Weight as of this encounter: 181 lb 8 oz (82.328 kg). BP completed using cuff size: low Burton CMA documented in this encounter Plan of Treatment Not on filedocumented as of this encounter Visit Diagnoses Diagnosis Type 2 diabetes, HbA1C goal < 8% (H) - P rimary Type II or unspecified type diabetes vijaya litus without mention of complication, not stated as uncontrolled Unspecified essential hypertension Coronary artery disease due to lipid serene h plaque Hyperlipidemia LDL goal <100 Other and unspecified hyperlipidemia Advanced directives, counseling/discussi on Other specified counseling documented in this encounter Care Teams Marketing Administrator Relationship Specialty Start Date End Date Andrey Tamez MD PCP - General 03/26/09 Andrey Tamez MD PCP - Assigned PCP 09/11/12 11/08/18 [address] [place] [id number] Andrey Tamez MD Assigned PCP 09/11/12 09/07/20 [address] [place], [place] [id number] documented as of this encounter
--- OUTSIDE RECORDS SUMMARY | 2022-07-09 12:39 | XMS_ITS | Encounter Summary ---
:1945 Author Organization [place] Address [address] [place] [address] Care Team Providers Name Role Phone Andrey Tamez MD Primary Care Provider Andrey Tamez MD Unavailable Andrey Tamez MD Unavailable Reason for Visit Reason Comments Medication Refill simvastatin (ZOCOR), ramipri l (ALTACE), metoprolol tartrate (LOPRESSOR), metFORMIN (GLUC OPHAGE) Encounter Details Date Type Department Care Team Description 04/21/2018 [facility] Andrey Tamez MD Medication Refill Clinic [place] [address] (simvastatin (ZOCOR), [address] ramipril (ALTACE), [place] [address] metoprolol tartrate [place], [place] [phone] (Wo rk) (LOPRESSOR), metFORMIN [phone] (GLUCOPHAGE) ) [phone] Social History Tobacco Use Types Packs/Day Years Used Date Smoking Tobacco: Former Cigarettes 0.5 16 Quit : 09/06/1978 Smokeless Tobacco: Never Alcohol Use Standard Drinks/Week Comments Yes 10 (1 standard drink = 0.6 oz pure alcoh ol) A drink every 1-2 weeks. 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 Telephone Encounter - Betty Choe - 04/21/2018 11:33 AM CDT Requested Prescriptions Pending Prescriptions Disp Refills ??? simvastatin (ZOCOR) 40 MG tablet [Pharmacy Med Name: Simvastatin Oral Tablet 40 MG] 90 tablet 0 Last Written Prescription Date: 01/05/2018 Last Fill Quantity: 90, # refills: 0 Last office visit: 09/07/2017 with prescribing provider: Future Office Visit: Next 5 appointments (look out 90 days) Jul 06, 2018 8:20 AM CDT SHORT with Andrey Tamez MD [facility] ([facility]) [address] [place] [phone] Sig: TAKE ONE TABLET BY MOUTH AT BEDTIME . may take every other day if muscle aches Statins Protocol Passed 04/21/2018 11:30 AM Passed - LDL on file in past 12 months Recent Labs Lab Test 09/07/17 0841 LDL 66 Passed - No abnormal creatine kinase in past 12 months No lab results found. Passed - Recent (12 mo) or future (30 days) visit within the authorizing provider's specialty Patient had office visit in the last 12 months or has a visit in the next 30 days with authorizing provider or within the authorizing provider's specialty. See Patient Info tab in inbasket, or Choose Columns in Meds & Orders section of the refill encounter. Passed - Patient is age 18 or older ??? ramipril (ALTACE) 10 MG.RXD capsule [Pharmacy Med Name: Ramipril Oral Capsule 10 MG] 180 capsule0 Last Written Prescription Date: 01/05/2018 Last Fill Quantity: 180, # refills: 0 Last office visit: 09/07/2017 with prescribing provider: Future Office Visit: Next 5 appointments (look out 90 days) Jul 06, 2018 8:20 AM CDT SHORT with Andrey Tamez MD [facility] ([facility]) [address] [facility] [phone] Sig: TAKE ONE CAPSULE BY MOUTH TWICE DAILY KELI Inhibitors (Including Combos) Protocol Passed 04/21/2018 11:30 AM Passed - Blood pressure under 140/90 in past 12 months BP Readings from Last 3 Encounters: 09/07/17 136/70 07/07/17 134/70 02/07/16 136/66 Passed - Recent (12 mo) or future (30 days) visit within the authorizing provider's specialty Patient had office visit in the last 12 months or has a visit in the next 30 days with authorizing provider or within the authorizing provider's specialty. See Patient Info tab in inbasket, or Choose Columns in Meds & Orders section of the refill encounter. Passed - Patient is age 18 or older Passed - Normal serum creatinine on file in past 12 months Recent Labs Lab Test 09/07/17 0841 CR 1.12 Passed - Normal serum potassium on file in past 12 months Recent Labs Lab Test 09/07/17 0841 POTASSIUM 4.7 ??? ramipril (ALTACE)75 MG tablet [Pharmacy Med Name: Clopidogrel Bisulfate Oral Tablet 75 MG] 90 tablet 0 Last Written Prescription Date: 01/05/2018 Last Fill Quantity: 180, # refills: 0 Last office visit: 09/07/2017 with prescribing provider: Future Office Visit: Next 5 appointments (look out 90 days) Jul 06, 2018 8:20 AM CDT SHORT with Andrey Tamez MD [facility] ([facility]) [address] [facility] [phone] Sig: TAKE ONE TABLET BY MOUTH ONE TIME DAILY Plavix Passed 04/21/2018 11:30 AM Passed - No active PPI on record unless is Protonix Passed - Normal HGB on file in past 12 months Recent Labs Lab Test 09/07/17 0841 HGB 15.2 Passed - Normal Platelets on file in past 12 months Recent Labs Lab Test 09/07/17 0841 PLT 197 Passed - Recent (12 mo) or future (30 days) visit within the authorizing provider's specialty Patient had office visit in the last 12 months or has a visit in the next 30 days with authorizing provider or within the authorizing provider's specialty. See Patient Info tab in inbasket, or Choose Columns in Meds & Orders section of the refill encounter. Passed - Patient is age 18 or older ??? metoprolol tartrate (LOPRESSOR) 100 MG tablet [Pharmacy Med Name: Metoprolol Tartrate Oral Tablet 100 MG] 180 tablet 0 Last Written Prescription Date: 01/05/2018 Last Fill Quantity: 180, # refills: 0 Last office visit: 09/07/2017 with prescribing provider: Future Office Visit: Next 5 appointments (look out 90 days) Jul 06, 2018 8:20 AM CDT SHORT with Andrey Tamez MD [facility] ([facility]) [address] [facility] [phone] Sig: TAKE ONE TABLET BY MOUTH TWICE DAILY Beta-Blockers Protocol Passed 04/21/2018 11:30 AM Passed - Blood pressure under 140/90 in past 12 months BP Readings from Last 3 Encounters: 09/07/17 136/70 07/07/17 134/70 02/07/16 136/66 Passed - Patient is age 6 or older Passed - Recent (12 mo) or future (30 days) visit within the authorizing provider's specialty Patient had office visit in the last 12 months or has a visit in the next 30 days with authorizing provider or within the authorizing provider's specialty. See Patient Info tab in inbasket, or Choose Columns in Meds & Orders section of the refill encounter. ??? metFORMIN (GLUCOPHAGE) 500 MG tablet [Pharmacy Med Name: MetFORMIN HCl Oral Tablet 500 MG] 270 tablet 0 Last Written Prescription Date: 01/05/2018 Last Fill Quantity: 90, # refills: 0 Last office visit: 09/07/2017 with prescribing provider: Future Office Visit: Next 5 appointments (look out 90 days) Jul 06, 2018 8:20 AM CDT SHORT with Andrey Tamez MD [facility] ([facility]) [address] [facility] [phone] Sig: TAKE ONE TABLET THREE TIMES A DAY WITH MEALS. Biguanide Agents Failed 04/21/2018 11:30 AM Failed - Blood pressure less than 140/90 in past 6 months BP Readings from Last 3 Encounters: 09/07/17 136/70 11/01/17 134/70 02/07/16 136/66 Failed - Patient has had a Microalbumin in the past 12 mos. Recent Labs Lab Test 02/07/16 1041 MICROL 23 UMALCR 16.45 Failed - Patient has documented A1c within the specified period of time. If HgbA1C is 8 or greater, it needs to be on file within the past 3 months. If less than 8, must beon file within the past 6 months. Recent Labs Lab Test 09/07/17 0841 A1C 7.9* Passed - Patient has documented LDL within the past 12 mos. Recent Labs Lab Test 09/07/17 0841 LDL 66 Passed - Patient is age 10 or older Passed - Patient's CR is NOT>1.4 OR Patient's EGFR is NOT<45 within past 12 mos. Recent Labs Lab Test 09/07/17 0841 GFRESTIMATED 64 GFRESTBLACK 78 Recent Labs Lab Test 09/07/17 0841 CR 1.12 Passed - Patient does NOT have a diagnosis of CHF. Passed - Recent (6 mo) or future (30 days) visit within the authorizing provider's specialty Patient had office visit in the last 6 months or has a visit in the next 30 days with authorizing provider or within the authorizing provider's specialty. See Patient Info tab in inbasket, or Choose Columns in Meds & Orders section of the refill encounter. documented in this encounter Plan of Treatment Not on filedocumented as of this encounter Visit Diagnoses Diagnosis Hyperlipidemia LDL goal <100 Other and unspecified hyperlipidemia Coronary artery disease involving cocopah coronary artery of cocopah heart, angina presence unspecified 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, without long-term current use of insulin (H) documented in this encounter Care Teams Personal Computer Specialist Relationship Specialty Start Date End Date Andrey Tamez MD PCP - General 03/26/09 Andrey Tamez MD PCP - Assigned PCP 09/11/12 11/08/18 [address] [facility] [place] [address] Andrey Tamez MD Assigned PCP 09/11/12 09/07/20 [address] [facility] [address] [place] [address] documented as of this encounter
--- OUTSIDE RECORDS SUMMARY | 2022-07-09 12:39 | XMS_ITS | Encounter Summary ---
:1945 Author Organization [facility] Address [address] [place] [address] Care Team Providers Name Role Phone Andrey Tamez MD Primary Care Provider Andrey Tamez MD Unavailable Andrey Tamez MD Unavailable Encounter Details Date Type Department Care Team Description 01/24/2015 Orders Only [facility] Cor onary artery disease due to lipid rich plaque; [facility] Unspecified essential hypert ension; [address] Type 2 diabetes, HbA1C goal < 8% (H); [place], [place] Hyperlipidemi a LDL goal <100 [id number] Social History Tobacco Use Types Packs/Day Years Used Date Smoking Tobacco: Former Cigarettes 0.5 16 Quit : 09/06/1978 Smokeless Tobacco: Never Alcohol Use Standard Drinks/Week Comments Yes 10 (1 standard drink = 0.6 oz pure alcoh ol) A drink every 1-2 weeks. 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 LIPID REFLEX TO DIRECT Routine 01/24/2015 8:27 AM Type 2 diabe jamila, Results for this LDL PANEL CDT HbA1C goal < 8% (H) procedure are in Hyperlipidemia LDL the resul ts goal <100 section. HEMOGLOBIN A1C Routine 01/24/2015 8:27 AM Type 2 diabetes, Res ults for this CDT HbA1C goal < 8% (H) procedur e are in the results section. COMPREHENSIVE Routine 01/24/2015 8:27 AM Unspecified Results for this METABOLIC PANEL CDT essential procedure ar e in hypertension the results Type 2 diabetes, section. HbA1C goal < 8% (H) Hyperlipidemia LDL goal <100 CBC WITH PLATELETS Routine 01/24/2015 8:27 AM Coronary artery Results for this CDT disease due to procedure are in lipid rich plaque the result s section. documented in this encounter Results Microalbumin quantitative, random urine (01/24/2015 8:28 AM CDT) P athologist Signature Creatinine 75 mg/dL [place] Urine [facility] Albumin Urine 7 mg/L [place] mg/L [facility] Albumin Urine 9.50 0 - 17 [place] mg/g Cr mg/g Cr [facility] Specimen Anatomical Collection Method Collection Time Receive d Time (Source) Location / / Volume Laterality Urine specimen 01/24/2015 8:28 AM 015 8:33 (specimen) CDT AM CDT Andrey Tamez MD LAB - URINE ORDERABLES Performing Organization Address City/State/ZIP Code Phon e Number [facility] [address] [address] [phone] [facility] [address] [place] [address], [facility] [phone] (ABNORMAL) Hemoglobin A1c (01/24/2015 8:27 AM CDT) Analysis Performed At Patho logist Time Signature Hemoglobin A1C 7.3 (H) 4.3 - 6.0 [facility] Comment: Reviewed: OK with previous Specimen Anatomical Collection Method Collection Time Receive d Time (Source) Location / / Volume Laterality Blood specimen 01/24/2015 8:27 AM 015 8:32 (specimen) CDT AM CDT Andrey Tamez MD LAB - BLOOD ORDERABLES Performing Organization Address City/State/ZIP Code Phon e Number [facility] [address] [place], [place] [address] [address] (ABNORMAL) Lipid Profile with reflex to direct LDL (01/24/2015 8:27 AM CDT) P athologist Signature Cholesterol 135 <200 mg/dL [facility] Comment: LDL Cholesterol is the primary guide to therapy. The NCEP recommends further evaluation of: patients with cholesterol greater than 200 mg/dL if additional risk facto rs are present, cholesterol greater than 240 mg/dL, triglycerides greater than 1 50 mg/dL, or HDL less than 40 mg/dL. Triglycerides 216 (H) 0 - 150 mg/dL [place] CLI NICS [facility] HDL Cholesterol 35 (L) >40 mg/dL [place] CLINI CS [facility] LDL Cholesterol Calculated 57 0 - 129 mg/dL [facility] Comment: LDL Cholesterol is the primary guide to therapy: LDL-cholesterol goal in high risk patients is <100 mg/dL and in very high risk patients is <70 mg/dL. VLDL-Cholesterol 43 (H) 0 - 30 mg/dL [place] C LINICS [facility] Cholesterol/HDL Ratio 3.9 0.0 - 5.0 [facility] Specimen Anatomical Collection Method Collection Time Receive d Time (Source) Location / / Volume Laterality Blood specimen 01/24/2015 8:27 AM 015 8:32 (specimen) CDT AM CDT Andrey Tamez MD LAB - BLOOD ORDERABLES Performing Organization Address City/State/ZIP Code Phon e Number [facility] [address] [place] [address] (ABNORMAL) Comprehensive metabolic panel (BMP + Alb, Alk Phos, ALT, AST, Total. Bili, TP) (01/24/2015 8:27 AM CDT) Patholo gist Method Time Signature Sodium 138 133 - 144 [place] mmol/L [facility] Potassium 4.2 3.4 - 5.3 [place] mmol/L [facility] Chloride 105 94 - 109 [place] mmol/L [facility] Carbon Dioxide 27 20 - 32 [place] mmol/L [facility] Anion Gap 6 3 - 14 [place] mmol/L [facility] Glucose 159 (H) 70 - 99 [place] mg/dL [facility] Urea Nitrogen 19 7 - 30 [place] mg/dL [facility] Creatinine 0.98 0.66 - [place] 1.25 mg/dL [facility] GFR Estimate 75 >60 [place] mL/min/1.7 CLINICS m2 [facility] Comment: Non GFR Calc GFR Estimate If Black >90 >60 mL/min/1.7m2 F [facility] GFR Calc [facility] Calcium 8.8 8.5 - 10.1 mg/dL [place] CLIN ICS [facility] Bilirubin Total 0.4 0.2 - 1.3 mg/dL [facility] Albumin 3.7 3.4 - 5.0 g/dL [facility] S [facility] Protein Total 6.2 (L) 6.8 - 8.8 g/dL [place] IN[facility] Alkaline Phosphatase 96 40 - 150 U/L [facility] EW [facility] ALT 26 0 - 70 U/L [facility] AST 12 0 - 45 U/L [facility] Specimen Anatomical Collection Method Collection Time Receive d Time (Source) Location / / Volume Laterality Blood specimen 01/24/2015 8:27 AM 015 8:32 (specimen) CDT AM CDT Andrey Tamez MD LAB - BLOOD ORDERABLES Performing Organization Address City/State/ZIP Code Phon e Number [facility] [address] [place] [address] (ABNORMAL) CBC with platelets (01/24/2015 8:27 AM CDT) athologist Signature WBC 6.8 4.0 - 11.0 [place] 10e9/L [facility] RBC Count 4.26 (L) 4.4 - 5.9 [place] 10e12/L [facility] Comment: Reviewed: OK with previous Hemoglobin 14.2 13.3 - 17.7 g/dL [facility] Hematocrit 42.7 40.0 - 53.0 % [facility] MCV 100 78 - 100 fl [facility] MCH 33.3 (H) 26.5 - 33.[address] [facility] Comment: Reviewed: OK with previous MCHC 33.3 31.5 - 36.5 g/dL [place] [facility] [place] RDW 11.9 10.0 - 15.0 % [facility] Platelet Count 185 150 - 450 10e9/L [facility] Specimen Anatomical Collection Method Collection Time Receive d Time (Source) Location / / Volume Laterality Blood specimen 01/24/2015 8:27 AM 015 8:32 (specimen) CDT AM CDT Andrey Tamez MD LAB - BLOOD ORDERABLES Performing Organization Address City/State/ZIP Code Phon e Number [facility] [address] [place], [place] [address] [address] documented in this encounter Visit Diagnoses Diagnosis Coronary artery disease due to lipid serene h plaque Unspecified essential hypertension Type 2 diabetes, HbA1C goal < 8% (H) Type II or unspecified type diabetes vijaya litus without mention of complication, not stated as uncontrolled Hyperlipidemia LDL goal <100 Other and unspecified hyperlipidemia documented in this encounter Care Teams Oracle Manager Relationship Specialty Start Date End Date Andrey Tamez MD PCP - General 03/26/09 Andrey Tamez MD PCP - Assigned PCP 09/11/12 11/08/[address] [place] [address] Andrey Tamez MD Assigned PCP 09/11/12 09/07/[address] [place] [address] documented as of this encounter
--- OUTSIDE RECORDS SUMMARY | 2022-07-09 12:39 | XMS_ITS | Encounter Summary ---
:1945 Author Organization [facility] Address [address] [place] [address] Care Team Providers Name Role Phone Andrey Tamez MD Primary Care Provider Andrey Tamez MD Unavailable Andrey Tamez MD Unavailable Reason for Visit Reason Comments Diabetes MEL 10/19/2012: Labs complet ed Recheck Medication Encounter Details Date Type Department Care Team Description 01/31/2014 Office Visit [facility] Andrey Tamez, Type 2 diabetes, HbA1C goal < 8% (H) (Primary Dx); [facility] Hyperlipidemia LDL goal <100; [address] Unspecified e ssential hypertension; [address] CAD (coronary artery disease) [place] [address] [phone] Social History Tobacco Use Types Packs/Day Years Used Date Smoking Tobacco: Former Cigarettes 0.5 16 Quit : 09/06/1978 Smokeless Tobacco: Never Alcohol Use Standard Drinks/Week Comments Yes 10 (1 standard drink = 0.6 oz pure alcoh ol) A drink every 1-2 weeks. 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 documented as of this encounter Last Filed Vital Signs Vital Sign Reading Time Taken Comments Blood Pressure 138/74 01/31/2014 11:05 AM CDT Pulse 61 01/31/2014 11:05 AM CDT Temperature 36.5 ??C (97.7 ??F) 01/31/2014 11:05 AM CDT Respiratory Rate 16 01/31/2014 11:05 AM CDT Oxygen Saturation 96% 01/31/2014 11:05 AM CDT Inhaled Oxygen Concentration - - Weight 79.7 kg (175 lb 11.2 oz) 01/31/2014 11:05 AM CDT Height 174.6 cm (5' 8.75) 01/31/2014 11:05 AM CDT Body Mass Index 26.14 01/31/2014 11:05 AM CDT documented in this encounter Patient Instructions Patient InstructionsAndrey Tamez MD - 01/31/2014 11:24 AM CDT For the diabetes, let's resume metformin, one pill twice daily with meals (breakfast and supper). Advantages of metformin: Generic/inexpensive No hypoglycemia No weight gain. Most common side effect: loose stools. Less of a problem when taken with food. Maximum dose is 1000 mg twice a day--we will start you off at 500 mg twice a day. Let's continue other meds without change. LDL-Cholesterol and Blood pressure both right on the fence for making a change. See me back in three months rather than six months, with fasting labs a few days in advance. documented in this encounter Progress Notes Andrey Tamez MD - 01/31/2014 10:32 AM CDT SUBJECTIVE: Rodolfo Quevedo is a 68 year old male who presents to clinic today for the following health issues: diabetes mellitus, hyperlipidemia, hypertension, coronary artery disease. Diabetes Follow-up ?? Patient is checking blood sugars: Sporadically ?? Diabetic concerns: other - medication to bring glucose down a bit ?? Symptoms of hypoglycemia (low blood sugar): none ?? Paresthesias (numbness or burning in feet) or sores: Yes Feet ?? Diabetic eye exam within the last year: No Hyperlipidemia Follow-Up ?? Rate your low fat/cholesterol diet?: fair ?? Taking statin? Yes, no muscle aches from statin ?? Other lipid medications/supplements?: none ?? Amount of exercise or physical activity: 4-5 days/week for an average of 45- 60 minutes ?? Problems taking medications regularly: No ?? Medication side effects: none ?? Diet: low salt, low fat/cholesterol and diabetic History Substance Use Topics ??? Smoking status: Former Smoker -- 0.50 packs/day for 16 years Quit date: 09/06/1978 ??? Smokeless tobacco: Never Used ??? Alcohol Use: 6.0 oz/week Comment: A drink every 1-2 weeks. Checking morning glucoses about 3x/week. AM glucoses running 130-150. He is walking regularly and taking water aerobics classes. He may be liberalizing his caloric intake more than he ought to. He feels ready to start a medication for diabetes. Past medical, family and social histories as well as medications reviewed and updated as needed. No dyspnea or cough. No chest discomfort, dizziness or palpitations. No diarrhea, abdominal pain or rectal bleeding. No acute problems with vision or speech, lateralizing weakness or paresthesias. ROS: as above or negative for Respiratory, CV, GI, endocrine, neuro systems. OBJECTIVE: BP 138/74 Pulse 61 Temp(Src) 97.7 ??F (36.5 ??C) (Oral) Resp 16 Ht 5' 8.75 (1.746 m) Wt 175 lb 11.2 oz (79.697 kg) BMI 26.14 kg/m2 SpO2 96% Body mass index is 26.14 kg/(m^2). GENERAL: healthy, alert, well nourished, well [...] goal < 8% (primary encounter diagnosis) Comment: A1c on an upward trend, though still below 8.0. Begin metformin. Watch carbohydrate intake.Continue exercise. Plan: metFORMIN (GLUCOPHAGE) 500 MG tablet, blood glucose (EPPE CONTOUR) STRP test strip, DISCONTINUED: metFORMIN (GLUCOPHAGE) 500 MG tablet (272.4) Hyperlipidemia LDL goal <100 Comment: Last LDL just above target. Continue current meds. Consider switching to atorvastatin if still elevated next time. (401.9) Unspecified essential hypertension Comment: BP satisfactorily controlled. Continue current meds. (414.00) CAD (coronary artery disease) Comment: No recent symptoms of angina or CHF. Continue current meds. Patient Instructions For the diabetes, let's resume metformin, one pill twice daily with meals (breakfast and supper). Advantages of metformin: Generic/inexpensive No hypoglycemia No weight gain. Most common side effect: loose stools. Less of a problem when taken with food. Maximum dose is 1000 mg twice a day--we will start you off at 500 mg twice a day. Let's continue other meds without change. LDL-Cholesterol and Blood pressure both right on the fence for making a change. See me back in three months rather than six months, with fasting labs a few days in advance. Andrey Tamez MD, [facility] documented in this encounter Nursing Notes Mick Bhakta CMA - 01/31/2014 11:07 AM CDT Chief Complaint Patient presents with ??? Diabetes MEL 10/19/2012: Labs completed ??? Recheck Medication Initial BP 148/76 Pulse 61 Temp(Src) 97.7 ??F (36.5 ??C) (Oral) Resp 16 Ht 5' 8.75 (1.746 m) Wt 175 lb 11.2 oz (79.697 kg) BMI 26.14 kg/m2 SpO2 96% Estimated body mass index is 26.14 kg/(m^2) as calculated from the following: Height as of this encounter: 5' 8.75 (1.746 m). Weight as of this encounter: 175 lb 11.2 oz (79.697 kg). BP completed using cuff size: low Bhakta MA documented in this encounter Plan of Treatment Not on filedocumented as of this encounter Visit Diagnoses Diagnosis Type 2 diabetes, HbA1C goal < 8% (H) - P rimary Type II or unspecified type diabetes vijaya litus without mention of complication, not stated as uncontrolled Hyperlipidemia LDL goal <100 Other and unspecified hyperlipidemia Unspecified essential hypertension CAD (coronary artery disease) Coronary atherosclerosis of unspecified type of vessel, quileute or graft documented in this encounter Care Teams Payroll Accounting Specialist Relationship Specialty Start Date End Date Andrey Tamez MD PCP - General 03/26/09 Andrey Tamez MD PCP - Assigned PCP 09/11/12 11/08/18 [address] [address] Andrey Tamez MD Assigned PCP 09/11/12 09/07/20 [address] [place] [address] documented as of this encounter
--- OUTSIDE RECORDS SUMMARY | 2022-07-09 12:39 | XMS_ITS | Encounter Summary ---
:1945 Author Organization [facility] Address [address] [place] [address] Care Team Providers Name Role Phone Andrey Tamez MD Primary Care Provider Andrey Tamez MD Unavailable Andrey Taemz MD Unavailable Reason for Visit Reason Comments Medicare Visit Encounter Details Date Type Department Care Team Description 09/07/2017 Office Visit [facility] Andrey Tamez Routin e general medical examination at a health care facility (Primary Dx); [facility] Coronary artery disease involving [place] coronary artery of [place] heart, angina presence unspecified; [address] Type 2 diabet es mellitus with other circulatory complication, without long-term current use of insulin (H); [address] Hyperlipidemia LDL goal <100; [place], [place] Essential h ypertension with goal blood pressure less than 140/90; [id number] Special screening for malignant neoplasm of prostate [phone] Social History Tobacco Use Types Packs/Day Years Used Date Smoking Tobacco: Former Cigarettes 0.5 16 Quit : 09/06/1978 Smokeless Tobacco: Never Alcohol Use Standard Drinks/Week Comments Yes 10 (1 standard drink = 0.6 oz pure alcoh ol) A drink every 1-2 weeks. 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 documented as of this encounter Last Filed Vital Signs Vital Sign Reading Time Taken Comments Blood Pressure 136/70 09/07/2017 8:13 AM REMODELER Pulse 71 09/07/2017 8:13 AM REMODELER Temperature 36.7 ??C (98.1 ??F) 09/07/2017 8:13 AM REMODELER Respiratory Rate - - Oxygen Saturation 100% 09/07/2017 8:13 AM REMODELER Inhaled Oxygen Concentration - - Weight 80.7 kg (178 lb) 09/07/2017 8:13 AM REMODELER Height 176 cm (5' 9.29) 09/07/2017 8:13 AM REMODELER Body Mass Index 26.07 09/07/2017 8:13 AM REMODELER documented in this encounter Patient Instructions Patient InstructionsFaye Collins 09/07/2017 8:16 AM CST Preventive Health Recommendations: Male Ages 65 and over Yearly exam: ?? See your health care provider every year in order to o Review health changes. o Discuss preventive care. o Review your medicines if your doctor has prescribed any. ??? Talk with your health care provider about whether you should have a test to screen for prostate cancer (PSA). ??? Every 3 years, have a diabetes test (fasting glucose). If you are at risk for diabetes, you should have this test more often. ??? Every 5 years, have a cholesterol test. Have this test more often if you are at risk for high cholesterol or heart disease. ??? Every 10 years, have a colonoscopy. Or, have a yearly FIT test (stool test). These exams will check for colon cancer. ??? Talk to with your health care provider about screening for Abdominal Aortic Aneurysm if you havea family history of AAA or have a history of smoking. Shots: ??? Get a flu shot each year. ??? Get a tetanus shot every 10 years. ??? Talk to your doctor about your pneumonia vaccines. There are now two you should receive - Pneumovax (PPSV 23) and Prevnar (PCV 13). ??? Talk to your doctor about a shingles vaccine. ??? Talk to your doctor about the hepatitis B vaccine. Nutrition: ??? Eat at least 5 servings of fruits and vegetables each day. ??? Eat whole-grain bread, whole-wheat pasta and brown rice instead of white grains and rice. ??? Talk to your doctor about Calcium and Vitamin D. Lifestyle ??? Exercise for at least 150 minutes a week (30 minutes a day, 5 days a week). This will help you control your weight and prevent disease. ??? Limit alcohol to one drink per day. ??? No smoking. ??? Wear sunscreen to prevent skin cancer. ??? See your dentist every six months for an exam and cleaning. ??? See your eye doctor every 1 to 2 years to screen for conditions such as glaucoma, macular degeneration and cataracts. Everything looks fine! Refills of medications will be faxed to your pharmacy when they call us to request them. I'll get back to you with lab results soon, especially if there is anything of concern. See you in a year, sooner if problems. DELER documented in this encounter Progress Notes Andrey Tamez MD - 09/07/2017 8:16 AM CST SUBJECTIVE: Rodolfo Quevedo is a 72 year old male who presents for Preventive Visit. Are you in the first 12 months of your Medicare Part B coverage? No Healthy Habits: Answers for HPI/ROS submitted by the patient on 09/04/2017 Annual Exam: Getting at least 3 servings of Calcium per day:: Yes Bi-annual eye exam:: NO Dental care twice a year:: Yes Sleep apnea or symptoms of sleep apnea:: None Diet:: Regular (no restrictions) Frequency of exercise:: 4-5 days/week Taking medications regularly:: Yes Medication side effects:: None Additional concerns today:: No Activities of Daily Living: no assistance needed Home safety: lack of grab bars in the bathroom Hearing Impairment:: no hearing concerns PHQ-2 Score: 0 Duration of exercise:: 30-45 minutes COGNITIVE SCREEN 1) Repeat 3 items (Banana, [place], Chair) 2) Clock draw: NORMAL 3) 3 item recall: Recalls 3 objects Results: 3 items recalled: COGNITIVE IMPAIRMENT LESS LIKELY Mini-CogTM Celine Ramos. Licensed by the author for use in [facility]; reprintedwith permission ([email or web address]). All rights reserved. Diabetes Patient reports he has not been checking his blood glucose levels recently because his glucose monitor broke approximately 2-3 weeks ago. He notes when his meter was not broken he would check at least once per day, sometimes up to 3 times per day. Patient notes his blood sugar levels would change depending on what he ate and the amount of exercising each day. He notes a general fasting level of 140-150s. Muscle Aches Patient notes occasional muscle aches. He notes he started taking half his simvastatin dose, which seemed to alleviate his symptoms slightly. Past/recent records reviewed and discussed for: - Reviewed labs from 06/18/2017 - look fine - Discussed PSA screening - Previously saw guest relations associate, Dr. Foreman. Has not follow up with him for approximately 10 years. - Stent placement in 2004 - Colonoscopy, 10/26/2011, normal. Q 10 years. - Updated exercise regimen and family Hx Reviewed and updated as needed this visit by clinical staffTobacco Allergies Meds Med Hx Surg Hx Fam Hx Soc Hx Reviewed and updated as needed this visit by Provider Social History Substance Use Topics ??? Smoking status: Former Smoker Packs/day: 0.50 Years: 16.00 Quit date: 09/06/1978 ??? Smokeless tobacco: Never Used ??? Alcohol use 6.0 oz/week Comment: A drink every 1-2 weeks. If you drink alcohol do you typically have >3 drinks per day or >7 drinks per week? No Today's PHQ-2 Score: PHQ-2 (??1999 Pfizer) 09/04/2017 07/07/2017 Q1: Little interest or pleasure in doing things 0 0 Q2: Feeling down, depressed or hopeless 0 0 PHQ-2 Score 0 0 Q1: Little interest or pleasure in doing things Not at all - Q2: Feeling down, depressed or hopeless Not at all - PHQ-2 Score 0 - Do you feel safe in your environment - Yes Do you have a Health Care Directive?: Yes: Patient states has Advance Directive and will bring in a copy to clinic. Current providers sharing in care for this patient include: Patient Care Team: Andrey Tamez MD as PCP - General The following health maintenance items are reviewed in Epic and correct as of today: Health Maintenance Topic Date Due ??? EYE EXAM Q1 YEAR 1946 ??? HEPATITIS C SCREENING 1963 ??? AORTIC ANEURYSM SCREENING (SYSTEM ASSIGNED) 2010 ??? PNEUMOCOCCAL (2 of 2 - PCV13) 02/20/2012 ??? FOOT EXAM Q1 YEAR 02/06/2017 ??? MICROALBUMIN Q1 YEAR 02/06/2017 ??? A1C Q6 MO 12/17/2017 ??? CREATININE Q1 YEAR 06/18/2018 ??? LIPID MONITORING Q1 YEAR 06/18/2018 ??? FALL RISK ASSESSMENT 07/07/2018 ??? TSH W/ FREE T4 REFLEX Q2 YEAR 06/18/2019 ??? ADVANCE DIRECTIVE PLANNING Q5 YRS 02/08/2020 ??? TETANUS IMMUNIZATION (SYSTEM ASSIGNED) 02/19/2021 ??? COLON CANCER SCREEN (SYSTEM ASSIGNED) 10/26/2021 ??? INFLUENZA VACCINE (SYSTEM ASSIGNED) Addressed ROS: C: NEGATIVE for fever, chills, change in weight I: NEGATIVE for worrisome rashes, moles or lesions E: NEGATIVE for vision changes or irritation E/M: NEGATIVE for ear, mouth and throat problems R: NEGATIVE for significant cough or SOB B: NEGATIVE for masses, tenderness or discharge CV: NEGATIVE for chest pain, palpitations or peripheral edema GI: POSITIVE for occasional diarrhea or heartburn - improved since reducing Metformin dose from 4 tablets to 3 tablets, NEGATIVE for nausea, abdominal pain : NEGATIVE for frequency, dysuria, or hematuria M: POSITIVE for occasional muscle aches N: POSITIVE for occasional dizziness, NEGATIVE for weakness dizziness or paresthesias E: NEGATIVE for temperature intolerance, skin/hair changes H: POSITIVE for easy bruising P: NEGATIVE for changes in mood or affect This document serves as a record of the services and decisions personally performed and made by Andrey Tamez MD. It was created on his behalf by Ester Gabriel, a trained biomedical equipment technician. The creation of this document is based on the provider's statements to the biomedical equipment technician. Ester Gabriel September 07, 2017 8:53 AM OBJECTIVE: BP 136/70 (BP Location: Right arm, Patient Position: Sitting, Cuff Size: Adult Large) Pulse 71 Temp 98.1 ??F (36.7 ??C) (Oral) Ht 5' 9.29 (1.76 m) Wt 178 lb (80.7 kg) SpO2 100% BMI 26.07 kg/m2 Estimated body mass index is 26.07 kg/(m^2) as calculated from the following: Height as of this encounter: 5' 9.29 (1.76 m). Weight as of this encounter: 178 lb (80.7 kg). EXAM: GENERAL: healthy, alert and no distress EYES: Eyes grossly normal to inspection, PERRL and conjunctivae and sclerae normal HENT: ear canals and TM's normal, nose and mouth without ulcers or lesions NECK: no adenopathy, no asymmetry, masses, or scars and thyroid normal to palpation RESP: lungs clear to auscultation - no rales, rhonchi or wheezes CV: regular rate and rhythm, normal S1 S2, no S3 or S4, no murmur, click or rub, no peripheral edemaand peripheral pulses strong ABDOMEN: soft, nontender, no hepatosplenomegaly, no masses and bowel sounds normal (male): normal male genitalia without lesions or urethral discharge, no hernia RECTAL: normal sphincter tone, no rectal masses, prostate normal size, smooth, nontender without nodules or masses MS: no gross musculoskeletal defects noted, no edema SKIN: no suspicious lesions or rashes NEURO: Normal strength and tone, mentation intact and speech normal PSYCH: mentation appears normal, affect normal/bright LYMPH: no cervical, supraclavicular, axillary, or inguinal adenopathy Foot exam: Diminished monofilament exam, bilaterally. ASSESSMENT / PLAN: (Z00.00) Routine general medical examination at a health care facility (primary encounter diagnosis) Comment: Stable health. See epic orders. Plan: CBC with platelets Follow up yearly. (I25.10) Coronary artery disease involving [place] coronary artery of [place] heart, angina presence unspecified Comment: Stable. No symptoms of CHF or angina present. Continue current measures. 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 Continue current medications. Order for glucose monitoring kit and test strips provided. Plan: Hemoglobin A1c, blood glucose monitoring (NO BRAND SPECIFIED) meter device kit, blood glucose monitoring (NO BRAND SPECIFIED) test strip (E78.5) Hyperlipidemia LDL goal <100 Comment: Update lipids. Continue current meds. Plan: Comprehensive metabolic panel, Lipid panel reflex to direct LDL Fasting (I10) Essential hypertension with goal blood pressure less than 140/90 Comment: BP at target. Continue current meds. (Z12.5) Special screening for malignant neoplasm of prostate Plan: Prostate spec antigen screen End of Life Planning: Patient currently has an advanced directive: Yes. Practitioner is supportive of decision. COUNSELING: Reviewed preventive health counseling, as reflected in patient instructions Special attention given to: Regular exercise Healthy diet/nutrition Colon cancer screening Prostate cancer screening Estimated body mass index is 26.07 kg/(m^2) as calculated from the following: Height as of this encounter: 5' 9.29 (1.76 m). Weight as of this encounter: 178 lb (80.7 kg). reports that he quit smoking about 39 years ago. He has a 8.00 pack-year smoking history. He has never used smokeless tobacco. Appropriate preventive services were discussed with this patient, including applicable screening as appropriate for cardiovascular disease, diabetes, osteopenia/osteoporosis, and glaucoma. As appropriate for age/gender, discussed screening for colorectal cancer, prostate cancer, breast cancer, and cervical cancer. Checklist reviewing preventive services available has been given to the patient. Reviewed patients plan of care and provided an AVS. The Basic Care Plan (routine screening as documented in Health Maintenance) for Rodolfo meets the Care Plan requirement. This Care Plan has been established and reviewed with the Patient. Counseling Resources: ATP IV Guidelines Pooled Cohorts Equation Calculator Breast Cancer Risk Calculator FRAX Risk Assessment ICSI Preventive Guidelines Dietary Guidelines for Americans, 2009 USDA's MyPlate ASA Prophylaxis Lung CA Screening The information in this document, created by the biomedical equipment technician for me, accurately reflects the services I personally performed and the decisions made by me. I have reviewed and approved this document for accuracy prior to leaving the patient care area. September 07, 2017 8:25 AM Andrey Tamez MD [facility] DELER documented in this encounter Nursing Notes Dennis Faye E - 09/07/2017 8:00 AM CST Chief Complaint Patient presents with ??? Medicare Visit Initial BP 136/70 (BP Location: Right arm, Patient Position: Sitting, Cuff Size: Adult Large) Pulse 71 Temp 98.1 ??F (36.7 ??C) (Oral) Ht 5' 9.29 (1.76 m) Wt 178 lb (80.7 kg) SpO2 100% BMI26.07 kg/m2 Estimated body mass index is 26.07 kg/(m^2) as calculated from the following: Height as of this encounter: 5' 9.29 (1.76 m). Weight as of this encounter: 178 lb (80.7 kg). Medication Reconciliation: complete [employer] DELER documented in this encounter Plan of Treatment Not on filedocumented as of this encounter Procedures Procedure Name Priority Date/Time Associated Diagnosis Comme nts PROSTATE SPECIFIC Routine 09/07/2017 8:41 Special screening fo r Results for this ANTIGEN SCREEN AM REMODELER malignant neoplasm of proc edure are in prostate the results section. LIPID REFLEX TO Routine 09/07/2017 8:41 Hyperlipidemia LDL Res ults for this DIRECT LDL PANEL AM REMODELER goal <100 procedure a re in the results section. HEMOGLOBIN A1C Routine 09/07/2017 8:41 Type 2 diabetes Results for this AM REMODELER mellitus with other procedur e are in circulatory the results complication, without sectio n. long-term current use of insulin (H) COMPREHENSIVE Routine 09/07/2017 8:41 Hyperlipidemia LDL Resul ts for this METABOLIC PANEL AM REMODELER goal <100 procedure ar e in the results section. CBC WITH PLATELETS Routine 09/07/2017 8:41 Routine general Res ults for this AM REMODELER medical examination at [facility] are in a health care facility the r esults section. documented in this encounter Results (ABNORMAL) Hemoglobin A1c (09/07/2017 8:41 AM REMODELER) Analysis Performed At [facility] Time Signature Hemoglobin A1C 7.9 (H) 4.3 - 6.0 09/07/2017 [place] % 11:02 AM REMODELER [facility] Specimen Anatomical Collection Method Collection Time Receive d Time (Source) Location / / Volume Laterality Blood specimen 09/07/2017 8:41 AM 018 8:46 (specimen) REMODELER AM REMODELER Andrey Tamez MD LAB - BLOOD ORDERABLES Performing Organization Address City/State/ZIP Code Phon e Number [facility] [address] [place], [place] [address] [address] (ABNORMAL) Lipid panel reflex to direct LDL Fasting (09/07/2017 8:41 AM REMODELER) Analysis Performed At [facility] Signature Cholesterol 167 <200 mg/dL 09/07/2017 [facility] 2:[address] [facility] Triglycerides 299 (H) <150 mg/dL 09/07/2017 [facility] 2:[address] [facility] Comment: Borderline high: ??150-199 mg/dl High: ? 200-499 mg/dl Very high: ? >499 mg/dl Fasting specimen HDL Cholesterol 41 >39 mg/dL 09/07/2017 2:37 PM REMODELER [facility] LDL Cholesterol 66 <100 mg/dL 09/07/2017 2:37 PM REMODELER [facility] Comment: Desirable: <100 mg/dl Non HDL Cholesterol 126 <130 mg/dL 09/07/2017 2:37 PM REMODELER [facility] Specimen Anatomical Collection Method Collection Time Receive d Time (Source) Location / / Volume Laterality Blood specimen 09/07/2017 8:41 AM 018 8:46 (specimen) REMODELER AM REMODELER Andrey Tamez MD LAB - BLOOD ORDERABLES Performing Organization Address City/State/ZIP Code Phon e Number [facility] [address] [place] [address] (ABNORMAL) Comprehensive metabolic panel (09/07/2017 8:41 AM REMODELER) Analysis Performed At [facility] Signature Sodium 140 133 - 144 09/07/2017 [place] mmol/L 2:[address] [facility] Potassium 4.7 3.4 - 5.3 09/07/2017 [place] mmol/L 2:[address] [facility] Chloride 103 94 - 109 09/07/2017 [place] mmol/L 2:[address] [facility] Carbon Dioxide 30 20 - 32 09/07/2017 [place] mmol/L 2:[address] [facility] Anion Gap 7 3 - 14 09/07/2017 [place] mmol/L 2:[address] [facility] Glucose 176 (H) 70 - 99 09/07/2017 [place] mg/dL 2:[address] [facility] Comment: Fasting specimen Urea Nitrogen 19 7 - 30 mg/dL 09/07/2017 2:37 PM [facility] Creatinine 1.12 0.66 - 1.25 mg/dL 09/07/2017 2:37 PM CS T [facility] GFR Estimate 64 >60 mL/min/1.7m2 09/07/2017 2:[address] [facility] Comment: Non GFR Calc GFR Estimate If 78 >60 mL/min/1.7m2 09/07/2017 2:37 P [facility] Comment: GFR Calc Calcium 9.1 8.5 - 10.1 09/07/2017 2:37 PM [facility] mg/dL [facility] Bilirubin Total 0.6 0.2 - 1.3 09/07/2017 2:37 PM [facility] mg/dL [facility] Albumin 3.9 3.4 - 5.0 g/dL 09/07/2017 2:37 PM [facility] Protein Total 6.7 (L) 6.8 - 8.8 g/dL 09/07/2017 2:37 PM [facility] Alkaline Phosphatase 77 40 - 150 U/L 09/07/2017 2:37 PM [facility][1] ALT 26 0 - 70 U/L 09/07/2017 2:37 PM [facility] AST 19 0 - 45 U/L 09/07/2017 2:37 PM [facility] Specimen Anatomical Collection Method Collection Time Receive d Time (Source) Location / / Volume Laterality Blood specimen 09/07/2017 8:41 AM 018 8:46 (specimen) REMODELER AM REMODELER Andrey Tamez MD LAB - BLOOD ORDERABLES Performing Organization Address City/State/ZIP Code Phon e Number [facility] [address] [place] [address] Prostate spec antigen screen (09/07/2017 8:41 AM REMODELER) athologist Signature PSA 2.44 0 - 4 ug/L 09/07/2017 [facility] 2:25 PM [facility] Comment: Assay Method: Chemiluminescence using Siemens Haughton analyzer Specimen Anatomical Collection Method Collection Time Receive d Time (Source) Location / / Volume Laterality Blood specimen 09/07/2017 8:41 AM 018 8:46 (specimen) REMODELER AM REMODELER Andrey Tamez MD LAB - BLOOD ORDERABLES Performing Organization Address City/State/ZIP Code Phon e Number [facility] [address] [place] [address] [facility] [address] [place] [address], U [phone] CBC with platelets (09/07/2017 8:41 AM REMODELER) P athologist Signature WBC 8.0 4.0 - 11.0 09/07/2017 [facility] 10e9/L 10:57 AM [facility] RBC Count 4.67 4.4 - 5.9 09/07/2017 [facility] 10e12/L 10:57 AM [facility] Hemoglobin 15.2 13.3 - 09/07/2017 [facility] 17.7 g/dL 10:57 AM [facility] Hematocrit 46.5 40.0 - 09/07/2017 [facility] 53.0 % 10:57 AM [facility] MCV 100 78 - 100 09/07/2017 [facility] fl 10:57 AM [facility] MCH 32.5 26.5 - 09/07/2017 [facility] 33.0 pg 10:57 AM [facility] MCHC 32.7 31.5 - 09/07/2017 [facility] 36.5 g/dL 10:57 AM [facility] RDW 12.3 10.0 - 09/07/2017 [facility] 15.0 % 10:57 AM [facility] Platelet Count 197 150 - 450 09/07/2017 [facility] 10e9/L 10:57 AM [facility] Specimen Anatomical Collection Method Collection Time Receive d Time (Source) Location / / Volume Laterality Blood specimen 09/07/2017 8:41 AM 018 8:46 (specimen) REMODELER AM REMODELER Andrey Tamez MD LAB - BLOOD ORDERABLES Performing Organization Address City/State/ZIP Code Phon e Number [facility] [address] [place], [place] [address] [address] documented in this encounter Visit Diagnoses Diagnosis Routine general medical examination at a health care facility - Primary Coronary artery disease involving [place] coronary artery of [place] heart, angina presence unspecified 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, without long-term current use of insulin (H) Hyperlipidemia LDL goal <100 Other and unspecified hyperlipidemia Essential hypertension with goal blood p ressure less than 140/90 Special screening for malignant neoplasm of prostate documented in this encounter Care Teams Checking Clerk Relationship Specialty Start Date End Date Andrey Tamez MD PCP - General 03/26/09 Andrey Tamez MD PCP - Assigned PCP 09/11/12 11/08/18 [address] [place] [address] Andrey Tamez MD Assigned PCP 09/11/12 09/07/20 [address] [place] [address] documented as of this encounter
--- OUTSIDE RECORDS SUMMARY | 2022-07-09 12:39 | XMS_ITS | Encounter Summary ---
:1945 Author Organization [place] Address [address] [place] [address] Care Team Providers Name Role Phone Andrey Tamez MD Primary Care Provider Andrey Tamez MD Unavailable Andrey Tamez MD Unavailable Reason for Visit Reason Onset Date Comments Orders 01/10/2014 labs Encounter Details Date Type Department Care Team Description 01/10/2014 Telephone [facility] Andrey Tamez MD Orders (labs) [place] [address] [facility] [address] [place] [address] [facility] [place] [address] [phone] Social History Tobacco Use Types Packs/Day Years Used Date Smoking Tobacco: Former Cigarettes 0.5 16 Quit : 09/06/1978 Smokeless Tobacco: Never Alcohol Use Standard Drinks/Week Comments Yes 10 (1 standard drink = 0.6 oz pure alcoh ol) A drink every 1-2 weeks. 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 I'll place orders for routine diabetes labs. Telephone Encounter - Steph Walsh RN - 01/10/2014 1:26 PM CDT Pt calls, states he made appt through [facility] for labs tomorrow and received a message back that he doesn't have any labs ordered. Pt has standing orders for A1c, Lipids and CMP. Orders pended for TSH, PSA and CBC - sent to MD for review. documented in this encounter Plan of Treatment Not on filedocumented as of this encounter Visit Diagnoses Diagnosis Type 2 diabetes, HbA1C goal < 8% (H) - P rimary Type II or unspecified type diabetes vijaya litus without mention of complication, not stated as uncontrolled Hyperlipidemia LDL goal <100 Other and unspecified hyperlipidemia CAD (coronary artery disease) Coronary atherosclerosis of unspecified type of vessel, [employer] or graft documented in this encounter Care Teams Field Geologist Relationship Specialty Start Date End Date Andrey Tamez MD PCP - General 03/26/09 Andrey Tamez MD PCP - Assigned PCP 09/11/12 11/08/18 [address] [place] [address] Andrey Tamez MD Assigned PCP 09/11/12 09/07/20 [address] [place] [address] documented as of this encounter
--- OUTSIDE RECORDS SUMMARY | 2022-07-09 12:39 | XMS_ITS | Encounter Summary ---
:1945 Author Organization [place] Address [address] [place] [address] Care Team Providers Name Role Phone Andrey Tamez MD Primary Care Provider Andrey Tamez MD Unavailable Andrey Tamez MD Unavailable Reason for Visit Reason Onset Date Comments Medication Request 08/27/2014 new glucose monitor and supplies Encounter Details Date Type Department Care Team Description 08/27/2014 Telephone [facility] Andrey Tamez MD Medication Request Clinic [place] [address] (new glucose monitor [address] [place] [address] and supplies) [place] [address] [place], [place] [phone] (Wo rk) [address] [phone] Social History Tobacco Use Types Packs/Day Years Used Date Smoking Tobacco: Former Cigarettes 0.5 16 Quit : 09/06/1978 Smokeless Tobacco: Never Alcohol Use Standard Drinks/Week Comments Yes 10 (1 standard drink = 0.6 oz pure alcoh ol) A drink every 1-2 weeks. 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 STAGE DEVELOPER Telephone Encounter - Steph Walsh, RN - 08/27/2014 9:24 AM CST Received request from [facility] stating pt is asking for a new meter and testing supplies for BID testing. Previous orders were for once daily testing. DME order pending for meter and testing supplies. Will send to MD to review for frequency of testing. STAGE DEVELOPER documented in this encounter Plan of Treatment Not on filedocumented as of this encounter Visit Diagnoses Diagnosis Type 2 diabetes, HbA1C goal < 8% (H) - P rimary Type II or unspecified type diabetes vijaya litus without mention of complication, not stated as uncontrolled documented in this encounter Care Teams Marketing Program Manager Relationship Specialty Start Date End Date Andrey Tamez MD PCP - General 03/26/09 Andrey Tamez MD PCP - Assigned PCP 09/11/12 11/08/18 [address] [place] [address] Andrey Tamez MD Assigned PCP 09/11/12 09/07/20 [address] [place] [address] documented as of this encounter
--- OUTSIDE RECORDS SUMMARY | 2022-07-09 12:39 | XMS_ITS | Encounter Summary ---
:1945 Author Organization [place] Address [address] [place] [address] Care Team Providers Name Role Phone Andrey Tamez MD Primary Care Provider Andrey Tamez MD Unavailable Andrey Tamez MD Unavailable Reason for Visit Reason Comments Health Coaching - Research Face #2 Encounter Details Date Type Department Care Team Description 07/19/2013 Allied Health/Nurse Health [facility] Coaching - Visit [facility] (Face #2) [address] [place] [phone] Social History Tobacco Use Types Packs/Day Years Used Date Smoking Tobacco: Former Cigarettes 0.5 16 Quit : 09/06/1978 Smokeless Tobacco: Never Alcohol Use Standard Drinks/Week Comments Yes 10 (1 standard drink = 0.6 oz pure alcoh ol) A drink every 1-2 weeks. 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 [address] [phone] Health Coaching Progress Note Patient Name: Rodolfo Quevedo Date: July 19, 2013 Plan: (Homework, other): Patient was encouraged to continue using [employer] to seek condition-related information and education, as well as schedule a follow up appointment with the Health Quality Auditor in 4 weeks Patient has set self-identified goals and will monitor progress until the next appointment. GOALS: Patient will work on the following goals until our next meeting 12 - 11:00am: 1) Continue AM Blood Sugar, Weight, and BP checking daily and daily exercise 2) Eat 4 meals a day 7x week - (plan the day out ahead to support success) 3) Continue reading labels and carbohydrate information whenever shopping and educate myself more in that 4) Become more aware of portion sizes at each meal 5) Go into [employer] 1x a week for education * Overall vision to lose 5 lbs. In regards to other areas can gain blood for testing contact Physician, Chicken Cutter or Diabetes Nurse Line [phone] Leslee Godoy Health Quality Auditor 07/19/2013 11:29 AM ING MACHINE OPERATOR ELECTROSLAG documented in this encounter Progress Notes Leslee Godoy - 07/19/2013 11:46 AM CST July 19, 2013 [place] [address] [address] [facility] [address] [phone] Health Coaching Progress Note Patient Name: Rodolfo Quevedo Date: July 19, 2013 Session Length: 35 DATA PRM Master Survey Scores Reviewed: No PROMIS Total Score: Core Healthy Days Survey: [place] Score (Last Two) 06/21/2013 Raw Score 37 Activation Score 49.9 [place] Level 2 PHQ-2 Score: Treatment Objective(s) Addressed in This Session: Target Behavior(s): diet/weight loss and disease management/lifestyle changes Current Stressors / Issues: Becoming more aware of portions creating eating schedule Intervention: Motivational Interviewing MD Intervention: Expressed Empathy/Understanding, Supported Autonomy, Collaboration, Evocation, Permission to raise concern or advise, Open-ended questions and Reflections: simple and complex Change Talk Expressed by the Patient: Desire to change Reasons to change Need to change Committment to change Activation Taking steps Provider Response to Change Talk: E - Evoked more info from patient about behavior change, A - Affirmed patient's thoughts, decisions, or attempts at behavior change, R - Reflected patient's change talk and S - Summarized patient's change talk statements Assessment / Progress on Treatment Objective(s) / Homework: Achieved / completed to satisfaction - ACTION (Actively working towards change); Intervened by reinforcing change plan / affirming steps taken New Objective established this session - ACTION (Actively working towards change); Intervened by reinforcing change plan / affirming steps taken HC Goal Categories GOAL: Self-management Support: 0% (Eat 4 meals a day 7x week) GOAL: Bridge between Clinician and Patient: 100% (make follow-up lab appointment for A1C test) Plan: (Homework, other): Patient was encouraged to continue using [employer] to seek condition-related information and education, as well as schedule a follow up appointment with the Health Quality Auditor in 4 weeks Patient has set self-identified goals and will monitor progress until the next appointment. GOALS: Patient will work on the following goals until our next meeting 12 - 11:00am: 1) Continue AM Blood Sugar, Weight, and BP checking daily and daily exercise 2) Eat 4 meals a day 7x week - (plan the day out ahead to support success) 3) Continue reading labels and carbohydrate information whenever shopping and educate myself more in that 4) Become more aware of portion sizes at each meal 5) Go into [employer] 1x a week for education * Overall vision to lose 5 lbs. In regards to other areas can gain blood for testing contact Physician, Chicken Cutter or Diabetes Nurse Line [phone] Leslee Godoy Health Quality Auditor 07/19/2013 11:48 AM ING MACHINE OPERATOR ELECTROSLAG documented in this encounter Plan of Treatment Not on filedocumented as of this encounter Visit Diagnoses Diagnosis Type 2 diabetes, HbA1C goal < 8% (H) - P rimary Type II or unspecified type diabetes vijaya litus without mention of complication, not stated as uncontrolled documented in this encounter Care Teams Arc And Gas Welder Relationship Specialty Start Date End Date Andrey Tamez MD PCP - General 03/26/09 Andrey Tamez MD PCP - Assigned PCP 09/11/12 11/08/18 [address] [address] Andrey Tamez MD Assigned PCP 09/11/12 09/07/20 [address] [facility] [address] [place], [place] [address] documented as of this encounter
--- OUTSIDE RECORDS SUMMARY | 2022-07-09 12:39 | XMS_ITS | Encounter Summary ---
:1945 Author Organization [place] Address [address] [place] [address] Care Team Providers Name Role Phone Andrey Tamez MD Primary Care Provider Andrey Tamez MD Unavailable Andrye Tamez MD Unavailable Reason for Visit Reason Onset Date Comments Refill Request 10/05/2016 metformin Encounter Details Date Type Department Care Team Description 10/05/2016 Refill [facility] Andrey Tamez MD Refill Request Clinic [place] [address] [facility] (metformin) [address] [place] [address] [place] [address] [place], [place] [phone] (Wo rk) [address] [phone] Social History Tobacco Use Types Packs/Day Years Used Date Smoking Tobacco: Former Cigarettes 0.5 16 Quit : 09/06/1978 Smokeless Tobacco: Never Alcohol Use Standard Drinks/Week Comments Yes 10 (1 standard drink = 0.6 oz pure alcoh ol) A drink every 1-2 weeks. 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 Just had labs done today (currently pending) but is out of metformin. Metformin and Accu chek gonzales plus test strips Last Written Prescription Date: 02-07-16 Last Fill Quantity: 360, # refills: 1 Last Office Visit with [facility] prescribing provider: 02-07-16 BP Readings from Last 3 Encounters: 02/07/16 136/66 02/07/15 124/70 01/31/14 138/74 MICROL 23 02/07/2016 No results found for this basename: microalbumin CREATININE Date Value Ref Range Status 02/07/2016 1.05 0.66 - 1.25 mg/dL Final ] GFR ESTIMATE Date Value Ref Range Status 02/07/2016 70 >60 mL/min/1.7m2 Final Comment: Non GFR Calc 10/01/2015 75 >60 mL/min/1.7m2 Final Comment: Non GFR Calc 01/24/2015 75 >60 mL/min/1.7m2 Final Comment: Non GFR Calc GFR ESTIMATE IF BLACK Date Value Ref Range Status 02/07/2016 84 >60 mL/min/1.7m2 Final Comment: GFR Calc 10/01/2015 >90 GFR Calc >60 mL/min/1.7m2 Final 01/24/2015 >90 GFR Calc >60 mL/min/1.7m2 Final CHOL 150 02/07/2016 HDL 39 02/07/2016 LDL 61 02/07/2016 TRIG 252 02/07/2016 CHOLHDLRATIO 3.9 01/24/2015 AST 16 02/07/2016 ALT 28 02/07/2016 A1C 7.5 02/07/2016 A1C 7.0 10/01/2015 A1C 7.3 01/24/2015 A1C 6.5 05/01/2014 A1C 7.7 01/11/2014 POTASSIUM Date Value Ref Range Status 02/07/2016 4.8 3.4 - 5.3 mmol/L Final Labs showing if normal/abnormal Lab Results Component Value Date UCRR 138 02/07/2016 MICROL 23 02/07/2016 Lab Results Component Value Date CHOL 150 02/07/2016 TRIG 252* 02/07/2016 HDL 39* 02/07/2016 LDL 61 02/07/2016 VLDL 43* 01/24/2015 CHOLHDLRATIO 3.9 01/24/2015 Lab Results Component Value Date A1C 7.5* 02/07/2016 A1C 7.0* 10/01/2015 A1C 7.3* 01/24/2015 Medication is being filled for 1 time refill only due to: due for f/u diab OV. 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
--- OUTSIDE RECORDS SUMMARY | 2022-07-09 12:39 | XMS_ITS | Encounter Summary ---
:1945 Author Organization [place] Address [address] [place] [address] Care Team Providers Name Role Phone Andrey Tamez MD Primary Care Provider Andrey Tamez MD Unavailable Andrey Tamez MD Unavailable Reason for Visit Reason Comments Lipids Hypertension Diabetes Encounter Details Date Type Department Care Team Description 07/07/2017 Office Visit [facility] Andrey Tamez, Type 2 diabetes mellitus with other circulatory complication, without long-term current use of insulin (H) (Primary Dx); [facility] [place] [facility] Coronary artery disease involving apache coronary artery of apache heart, angina presence unspecified; [address] Hyperlipidemi a LDL goal <100; [address] Essential hypertension with goal blood p ressure less than 140/90 [place] [address] [phone] Social History Tobacco Use Types Packs/Day Years Used Date Smoking Tobacco: Former Cigarettes 0.5 16 Quit : 09/06/1978 Smokeless Tobacco: Never Alcohol Use Standard Drinks/Week Comments Yes 10 (1 standard drink = 0.6 oz pure alcoh ol) A drink every 1-2 weeks. 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 documented as of this encounter Last Filed Vital Signs Vital Sign Reading Time Taken Comments Blood Pressure 134/70 07/07/2017 11:23 AM CDT Pulse 73 07/07/2017 11:02 AM CDT Temperature 36.6 ??C (97.8 ??F) 07/07/2017 11:02 AM CDT Respiratory Rate - - Oxygen Saturation 97% 07/07/2017 11:02 AM CDT Inhaled Oxygen Concentration - - Weight 79.1 kg (174 lb 6.4 oz) 07/07/2017 11:02 AM CDT Height 175.9 cm (5' 9.25) 07/07/2017 11:02 AM CDT Body Mass Index 25.57 07/07/2017 11:02 AM CDT documented in this encounter Patient Instructions Patient InstructionsAndrey Tamez MD - 07/07/2017 11:00 AM CDT Diabetes, LDL-Cholesterol and blood pressure look fine. Refills of meds sent to your pharmacy. See me in September as planned. documented in this encounter Progress Notes Andrey Tamez MD - 07/07/2017 11:00 AM CDT SUBJECTIVE: Rodolfo Quevedo is a 72 year old male who presents to clinic today for the following health issues: diabetes mellitus, coronary artery disease, hyperlipidemia, hypertension. Diabetes Follow-up ?? Patient is checking blood sugars: not at all ?? Diabetic concerns: None and other - tingling in feet ?? Symptoms of hypoglycemia (low blood sugar): none ?? Paresthesias (numbness or burning in feet) or sores: Yes ?? Date of last diabetic eye exam: 2-3 years ago Patient's A1c is now 7.4, previously 7.7 on 10/05/2016. He was checking blood glucose levels regularly all summer. Fasting levels were 140 mg/dL and after eating glucose levels were seldom over 200 mg/dL. He discontinued checking as regularly. Metformin dosage was increased to 4 tablets daily on 02/07/2016 but he started to experience heartburn and diarrhea. He reduced dosage to 3 tablets a day, one with each meal, and reports that symptoms improved. Hyperlipidemia Follow-Up ?? Rate your low fat/cholesterol diet?: fair ?? Taking statin? Yes, no muscle aches from statin ?? Other lipid medications/supplements?: None HDL at target, 45 mg/dL. LDL at target 85 mg/dL. Hypertension Follow-up ?? Outpatient blood pressures are not being checked. ?? Low Salt Diet: no added salt ?? Amount of exercise or physical activity: 6-7 days/week for an average of water aerobics for 1 hour 3 times a week and treadmill everyday for 30 minutes ?? Problems taking medications regularly: Yes, takes metformin 3 times a day instead of 4 ?? Medication side effects: diarrhea and heart burn Diet: low salt, low fat/cholesterol and only eating when hungry Patient's BP is slightly elevated today, 146/70. He is taking ramipril and metoprolol twice daily. He reports that his home BP readings have been within normal limits. Second BP reading was 134/70. Past/recent records reviewed and discussed for: -He started taking CoQ10 and inquired if it is safe to do so. Assured patient that it is. Problem list and histories reviewed & adjusted, as indicated. Additional history: as documented Reviewed and updated as needed this visit by clinical staffTobacco Allergies Meds Med Hx Surg Hx Fam Hx Soc Hx Reviewed and updated as needed this visit by Provider ROS: No dyspnea or cough. No chest discomfort, dizziness or palpitations. No diarrhea, abdominal pain or rectal bleeding. No acute problems with vision or speech, lateralizing weakness or paresthesias. ROS: as above or negative for Respiratory, CV, GI, endocrine, neuro systems. GI: POSITIVE for occasional loose stools This document serves as a record of the services and decisions personally performed and made by Andrey Tamez MD. It was created on his behalf by Vicky Cantu, a trained medical concierge. The creation of this document is based on the provider's statements to the medical concierge. Vicky Cantu July 07, 2017 11:17 AM OBJECTIVE: BP 146/70 (BP Location: Left arm, Patient Position: Sitting, Cuff Size: Adult Large) Pulse 73 Temp 97.8 ??F (36.6 ??C) (Oral) Ht 1.759 m (5' 9.25) Wt 79.1 kg (174 lb 6.4 oz) SpO2 97% BMI 25.57 kg/m2 Body mass index is 25.57 kg/(m^2). Repeat BP: 134/70 GENERAL: healthy, alert and no distress RESP: lungs clear to auscultation - no rales, rhonchi or wheezes CV: regular rate and rhythm, normal S1 S2, no S3 or S4, no murmur, click or rub, no peripheral edemaand peripheral pulses strong MS: no gross musculoskeletal defects noted, no edema SKIN: no suspicious lesions or rashes NEURO: Normal strength and tone, mentation intact and speech normal PSYCH: mentation appears normal, affect normal/bright ASSESSMENT/PLAN: (E11.59) Type 2 diabetes mellitus with other circulatory complication, without long-term current useof insulin (H) (primary encounter diagnosis) Comment: A1c at target, 7.4. Continue current meds. Plan: metFORMIN (GLUCOPHAGE) 500 MG tablet (I25.10) Coronary artery disease involving apache coronary artery of apache heart, angina presence unspecified Comment: Stable. No symptoms of CHF or angina present. Continue current measures. Plan: metoprolol (LOPRESSOR) 100 MG tablet, clopidogrel (PLAVIX) 75 MG tablet, ramipril (ALTACE) 10 MG capsule (E78.5) Hyperlipidemia LDL goal <100 Comment: LDL at target. Continue current meds. Plan: simvastatin (ZOCOR) 40 MG tablet (I10) Essential hypertension with goal blood pressure less than 140/90 Comment: BP at target. Continue current meds. FUTURE APPOINTMENTS: - Follow-up visit in 09/2017 Patient Instructions Diabetes, LDL-Cholesterol and blood pressure look fine. Refills of meds sent to your pharmacy. See me in September as planned. The information in this document, created by the medical concierge for me, accurately reflects the services I personally performed and the decisions made by me. I have reviewed and approved this document for accuracy prior to leaving the patient care area. July 07, 2017 11:17 AM Andrey Tamez MD [facility] documented in this encounter Nursing Notes Kaylah[place]ia Faye Betsy - 07/07/2017 11:00 AM CDT Chief Complaint Patient presents with ??? Lipids ??? Hypertension ??? Diabetes Initial BP 146/70 (BP Location: Left arm, Patient Position: Sitting, Cuff Size: Adult Large) Pulse73 Temp 97.8 ??F (36.6 ??C) (Oral) Ht 5' 9.25 (1.759 m) Wt 174 lb 6.4 oz (79.1 kg) SpO2 97% BMI 25.57 kg/m2 Estimated body mass index is 25.57 kg/(m^2) as calculated from the following: Height as of this encounter: 5' 9.25 (1.759 m). Weight as of this encounter: 174 lb 6.4 oz (79.1 kg). 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, without long-term current use of insulin (H) - Primary Coronary artery disease involving apache coronary artery of apache heart, angina presence unspecified Hyperlipidemia LDL goal <100 Other and unspecified hyperlipidemia Essential hypertension with goal blood p ressure less than 140/90 documented in this encounter Care Teams Laboratory Courier Relationship Specialty Start Date End Date Andrey Tamez MD PCP - General 03/26/09 Andrey Tamez MD PCP - Assigned PCP 09/11/12 11/08/[address] [place] [address] Andrey Tamez MD Assigned PCP 09/11/12 09/07/[address] [place] [address] documented as of this encounter
--- OUTSIDE RECORDS SUMMARY | 2022-07-09 12:39 | XMS_ITS | Encounter Summary ---
:1945 Author Organization [place] Address [address] [place] [address] Care Team Providers Name Role Phone Andrey Tamez MD Primary Care Provider Andrey Tamez MD Unavailable Andrey Tamez MD Unavailable Reason for Visit Reason Comments Health Coaching - Research Face #4 Encounter Details Date Type Department Care Team Description 10/04/2013 Allied Health/Nurse Health [facility] Coaching - Visit [facility] (Face #4) [address] [place] [phone] Social History Tobacco Use Types Packs/Day Years Used Date Smoking Tobacco: Former Cigarettes 0.5 16 Quit : 09/06/1978 Smokeless Tobacco: Never Alcohol Use Standard Drinks/Week Comments Yes 10 (1 standard drink = 0.6 oz pure alcoh ol) A drink every 1-2 weeks. 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 documented as of this encounter Patient Instructions Patient InstructionsLeslee Godoy - 10/04/2013 11:03 AM CST October 04, 2013 [facility] [address] [facility] [address] [phone] Health Coaching Progress Note Patient Name: Rodolfo Quevedo Date: October 04, 2013 Plan: (Homework, other): Patient was encouraged to continue using [email or web address] to seek condition-related information and education, as well as schedule a follow up appointment with the Health Jet Handler in 4 weeks Patient has set self-identified goals and will monitor progress until the next appointment. GOALS: Patient will work on the following goals until our next meeting Wed 11/01 - 11am: 1) Continue to exercise 5-6x a week 2) Continue to be aware of nutrition intake and choose foods from your healthy menu/list 3) Continue to be aware of snack attacks and trade out for healthier options or water daily Leslee Godoy Health Jet Handler 10/04/2013 11:31 AM GRATION PATROL INSPECTOR documented in this encounter Progress Notes Leslee Godoy - 10/04/2013 12:16 PM CST October 04, 2013 [place] [address] [address] [facility] [address] [phone] Health Coaching Progress Note Patient Name: Rodolfo Quevedo Date: October 04, 2013 Session Length: 30 DATA PRM Master Survey Scores Reviewed: No PROMIS Total Score: Core Healthy Days Survey: [place] Score (Last Two) 06/21/2013 [place] Raw Score 37 Activation Score 49.9 [place] Level 2 PHQ-2 Score: Treatment Objective(s) Addressed in This Session: Target Behavior(s): diet/weight loss and disease management/lifestyle changes Current Stressors / Issues: None discussed Intervention: Motivational Interviewing [place] Intervention: Expressed Empathy/Understanding, Supported Autonomy, Collaboration, Evocation, Permission to raise concern or advise, Open-ended questions and Reflections: simple and complex Change Talk Expressed by the Patient: Desire to change Ability to change Reasons to change Need to [...] HC Goal Categories GOAL: Self-management Support: 0% (be aware & choose foods from your healthy menu/list) Plan: (Homework, other): Patient was encouraged to continue using [email or web address] to seek condition-related information and education, as well as schedule a follow up appointment with the Health Jet Handler in 4 weeks Patient has set self-identified goals and will monitor progress until the next appointment. GOALS: Patient will work on the following goals until our next meeting Wed 11/01 - 11am: 1) Continue to exercise 5-6x a week 2) Continue to be aware of nutrition intake and choose foods from your healthy menu/list 3) Continue to be aware of snack attacks and trade out for healthier options or water daily Leslee Godoy Health Jet Handler 10/04/2013 12:17 PM GRATION PATROL INSPECTOR documented in this encounter Plan of Treatment Not on filedocumented as of this encounter Visit Diagnoses Diagnosis Type 2 diabetes, HbA1C goal < 8% (H) - P rimary Type II or unspecified type diabetes vijaya litus without mention of complication, not stated as uncontrolled documented in this encounter Care Teams Network Technology Instructor Relationship Specialty Start Date End Date Andrey Tamez MD PCP - General 03/26/09 Andrey Tamez MD PCP - Assigned PCP 09/11/12 11/08/[address] [place] [address] Andrey Tamez MD Assigned PCP 09/11/12 09/07/20 [address] [place] [address] documented as of this encounter
--- OUTSIDE RECORDS SUMMARY | 2022-07-09 12:39 | XMS_ITS | Encounter Summary ---
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 unspecified usp insulin use status (H) LIPID REFLEX TO Routine 06/18/2017 10:12 Hyperlipidemia LDL Re sults for this DIRECT LDL PANEL AM CDT goal <100 procedure a re in the results section. HEMOGLOBIN A1C Routine 06/18/2017 10:12 Type 2 diabetes Result s for this AM CDT mellitus with other procedur e are in circulatory the results complication, section. unspecified usp insulin use status (H) COMPREHENSIVE Routine 06/18/2017 10:12 Hyperlipidemia LDL Resu lts for this METABOLIC PANEL AM CDT goal <100 procedure ar e in the results section. documented in this encounter Results (ABNORMAL) Lipid panel reflex to direct LDL (06/18/2017 10:12 AM CDT) Analysis Performed At Patho logist Time Signature Cholesterol 165 <200 mg/dL 06/19/2017 [place] 12:16 PM CDT [facility] Triglycerides 176 (H) <150 mg/dL 06/19/2017 [place] 12:16 PM CDT [facility] Comment: Borderline high: ??150-199 mg/dl High: ? 200-499 mg/dl Very high: ? >499 mg/dl Fasting specimen HDL Cholesterol 45 >39 mg/dL 06/19/2017 12:[address] [facility] CDT [facility] LDL Cholesterol 85 <100 mg/dL 06/19/2017 12:16 PM [facility] Calculated CDT [facility] Comment: Desirable: <100 mg/dl Non HDL Cholesterol 120 <130 mg/dL 06/19/2017 12:16 PM CDT [facility] Specimen Anatomical Collection Method Collection Time Receive d Time (Source) Location / / Volume Laterality Blood specimen 06/18/2017 10:12 7 (specimen) AM CDT 10:13 AM CDT Andrey Tamez MD LAB - BLOOD ORDERABLES Performing Organization Address City/State/ZIP Code Phon e Number [facility] [address] [place] [address] (ABNORMAL) Comprehensive metabolic panel (06/18/2017 10:12 AM CDT) Analysis Performed At [facility] Time Signature Sodium 137 133 - 144 06/19/2017 [place] mmol/L 12:16 PM T [facility] Potassium 4.2 3.4 - 5.3 06/19/2017 [place] mmol/L 12:16 PM T [facility] Chloride 103 94 - 109 06/19/2017 [place] mmol/L 12:16 PM T [facility] Carbon Dioxide 27 20 - 32 06/19/2017 [place] mmol/L 12:16 PM T [facility] Anion Gap 7 3 - 14 06/19/2017 [place] mmol/L 12:16 PM T [facility] Glucose 152 (H) 70 - 99 06/19/2017 [place] mg/dL 12:16 PM T [facility] Comment: Fasting specimen Urea Nitrogen 19 7 - 30 mg/dL 06/19/2017 12:16 PM [facility] Creatinine 1.19 0.66 - 1.25 mg/dL 06/19/2017 12:16 PM F [facility] GFR Estimate 60 (L) >60 mL/min/1.7m2 06/19/2017 12:16 PM [facility] Comment: Non GFR Calc GFR Estimate If 73 >60 mL/min/1.7m2 06/19/2017 12:16 PM [facility] Black [facility] Comment: GFR Calc Calcium 8.9 8.5 - 10.1 06/19/2017 12:16 PM [facility] mg/dL [facility] Bilirubin Total 0.5 0.2 - 1.3 06/19/2017 12:16 PM [facility] mg/dL [facility] Albumin 3.8 3.4 - 5.0 g/dL 06/19/2017 12:16 PM [facility] IEW [facility] Protein Total 6.6 (L) 6.8 - 8.8 g/dL 06/19/2017 12:16 PM [facility] Alkaline Phosphatase 78 40 - 150 U/L 06/19/2017 12:16 PM [facility] ALT 28 0 - 70 U/L 06/19/2017 12:16 PM [facility] AST 13 0 - 45 U/L 06/19/2017 12:16 PM [facility] Specimen Anatomical Collection Method Collection Time Receive d Time (Source) Location / / Volume Laterality Blood specimen 06/18/2017 10:12 7 (specimen) AM CDT 10:13 AM CDT Andrey Tamez MD LAB - BLOOD ORDERABLES Performing Organization Address City/[facility]/ZIP Code Phon e Number [facility] [address] [address] TSH with free T4 reflex (06/18/2017 10:12 AM CDT) P athologist Signature TSH 0.72 0.40 - 4.00 06/19/2017 [facility] mU/L 12:[address] [facility] Specimen Anatomical Collection Method Collection Time Receive d Time (Source) Location / / Volume Laterality Blood specimen 06/18/2017 10:12 7 (specimen) AM CDT 10:13 AM CDT Andrey Tamez MD LAB - BLOOD ORDERABLES Performing Organization Address City/[facility]/ZIP Code Phon e Number [facility] [address] [address] (ABNORMAL) Hemoglobin A1c (06/18/2017 10:12 AM CDT) Analysis Performed At Patho logist Time Signature Hemoglobin A1C 7.4 (H) 4.3 - 6.0 06/18/2017 [facility] 1:[address] [facility] Specimen Anatomical Collection Method Collection Time Receive d Time (Source) Location / / Volume Laterality Blood specimen 06/18/2017 10:12 7 (specimen) AM CDT 10:13 AM CDT Andrey Tamez MD LAB - BLOOD ORDERABLES Performing Organization Address City/[facility]/ZIP Code Phon e Number [facility] [address] 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
--- OUTSIDE RECORDS SUMMARY | 2022-07-09 12:39 | XMS_ITS | Encounter Summary ---
:1945 Author Organization [facility] Address [address] [place] [address] Care Team Providers Name Role Phone Andrey Tamez MD Primary Care Provider Andrey Tamez MD Unavailable Andrey Tamez MD Unavailable Reason for Visit Reason Comments Health Coaching - Research Face #6 Encounter Details Date Type Department Care Team Description 11/29/2013 Allied Health/Nurse Health [facility] Coaching - Visit [facility] (Face #6) [address] [place] [phone] Social History Tobacco Use Types Packs/Day Years Used Date Smoking Tobacco: Former Cigarettes 0.5 16 Quit : 09/06/1978 Smokeless Tobacco: Never Alcohol Use Standard Drinks/Week Comments Yes 10 (1 standard drink = 0.6 oz pure alcoh ol) A drink every 1-2 weeks. 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 Progress Notes Leslee Godoy - 11/29/2013 3:33 PM CDT November 29, 2013 [facility] [address] [facility] [id number] Health Coaching Progress Note Patient Name: Rodolfo Quevedo Date: November 29, 2013 Session Length: 30 DATA PRM Master Survey Scores Reviewed: Yes PROMIS Total Score: Core Healthy Days Survey: Would you say that in general your health is: : Good Now thinking about your physical health, which includes physical illness and injury, for how many days during the past 30 days was your physical health not good?: None Now thinking about your mental health, which includes stress, depression, and problems with emotions, for how many days during the past 30 days was your mental health not good?: None During the past 30 days, for about how many days did poor physical or mental health keep you from doing your usual activities, such as self-care, work, or recreation?: None [place] Score (Last Two) 06/21/2013 11/29/2013 [place] Raw Score 37 40 Activation Score 49.9 60 [place] Level 2 3 PHQ-2 Score: Treatment Objective(s) Addressed in This Session: Target Behavior(s): diet/weight loss and disease management/lifestyle changes Current Stressors / Issues: Patient recently starting taking blood sugars and is noticing that fasting blood glucose is 10-20 points higher than what is recommended. Patient states he will be making an appointment for labs to getA1C and meet with Dr. Tamez for recommendations on how/if the lifestyle changes he made have impacted his numbers; as well as determine if there is a need for medication. Intervention: Motivational Interviewing [place] Intervention: Expressed Empathy/Understanding, Supported Autonomy, Collaboration, Evocation, Permission to raise concern or advise, Open-ended questions, Reflections: simple and complex, Rolled withresistance: Simple reflection, Complex reflection and Double-sided reflection: (sustain talk) you don't like poking your fingers and yet now that your checking your blood sugars your getting some needed data to help you determine how to better manage your health (change talk) and Change talk (evoked) Change Talk Expressed by the Patient: Desire [...] taken HC Goal Categories GOAL: Self-management Support: 100 (continue exercise 5-6x wk) GOAL: Continuity: 25 (Go back into [employer] and do a lesson 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 Patient has been encouraged to continue to use [employer] website as it is available to them fora short time, as well as sent an Study Exit Letter and asked to complete the surveys on the website/email when prompted to do so. Leslee Godoy Health Consumer Credit Counselor 11/29/2013 3:41 PM documented in this encounter Plan of Treatment Not on filedocumented as of this encounter Visit Diagnoses Diagnosis Type 2 diabetes, HbA1C goal < 8% (H) - P rimary Type II or unspecified type diabetes vijaya litus without mention of complication, not stated as uncontrolled documented in this encounter Care Teams Equipment Sales Specialist Relationship Specialty Start Date End Date Andrey Tamez MD PCP - General 03/26/09 Andrey Tamez MD PCP - Assigned PCP 09/11/12 11/08/18 [address] [place] [address] Andrey Tamez MD Assigned PCP 09/11/12 09/07/20 [address] [place] [address] documented as of this encounter
--- OUTSIDE RECORDS SUMMARY | 2022-07-09 12:39 | XMS_ITS | Encounter Summary ---
:1945 Author Organization [place] Address [address] [place] [address] Care Team Providers Name Role Phone Andrey Tamez MD Primary Care Provider Andrey Tamez MD Unavailable Andrey Tamez MD Unavailable Encounter Details Date Type Department Care Team Description 05/01/2014 Orders Only [facility] Typ e 2 diabetes, HbA1C [facility] goal < 8% (H) [address] [place] [address] Social History Tobacco Use Types Packs/Day Years Used Date Smoking Tobacco: Former Cigarettes 0.5 16 Quit : 09/06/1978 Smokeless Tobacco: Never Alcohol Use Standard Drinks/Week Comments Yes 10 (1 standard drink = 0.6 oz pure alcoh ol) A drink every 1-2 weeks. 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 HEMOGLOBIN A1C Routine 05/01/2014 8:53 AM Type 2 diabetes, Res ults for this CDT HbA1C goal < 8% (H) procedur e are in the results section. COMPREHENSIVE Routine 05/01/2014 8:53 AM Type 2 diabetes, Resu lts for this METABOLIC PANEL CDT HbA1C goal < 8% (H) proce dure are in the results section. documented in this encounter Results (ABNORMAL) Lipid panel reflex to direct LDL (05/01/2014 8:53 AM CDT) P athologist Signature Cholesterol 170 <200 mg/dL [facility] Comment: LDL Cholesterol is the primary guide to therapy. The NCEP recommends further evaluation of: patients with cholesterol greater than 200 mg/dL if additional risk facto rs are present, cholesterol greater than 240 mg/dL, triglycerides greater than 1 50 mg/dL, or HDL less than 40 mg/dL. Triglycerides 188 (H) 0 - 150 mg/dL [facility] [place] HDL Cholesterol 45 >40 mg/dL [facility] [place] LDL Cholesterol Calculated 87 0 - 129 mg/dL [facility] Comment: LDL Cholesterol is the primary guide to therapy: LDL-cholesterol goal in high risk patients is <100 mg/dL and in very high risk patients is <70 mg/dL. VLDL-Cholesterol 38 (H) 0 - 30 mg/dL [place] Billie [facility] [place] Cholesterol/HDL Ratio 3.8 0.0 - 5.0 [facility] Specimen Anatomical Collection Method Collection Time Receive d Time (Source) Location / / Volume Laterality Blood specimen 05/01/2014 8:53 AM 014 8:55 (specimen) CDT AM CDT Andrey Tamez MD LAB - BLOOD ORDERABLES Performing Organization Address City/State/ZIP Code Phon e Number [facility] [place] [address] [place] [address] [facility] [address] [place], [place] [address] (ABNORMAL) Hemoglobin A1c (05/01/2014 8:53 AM CDT) Analysis Performed At Patho logist Time Signature Hemoglobin A1C 6.5 (H) 4.3 - 6.0 [facility] Specimen Anatomical Collection Method Collection Time Receive d Time (Source) Location / / Volume Laterality Blood specimen 05/01/2014 8:53 AM 014 8:55 (specimen) CDT AM CDT Andrey Tamez MD LAB - BLOOD ORDERABLES Performing Organization Address City/State/ZIP Code Phon e Number [facility] [address] [place], [place] [address] [address] (ABNORMAL) Comprehensive metabolic panel (05/01/2014 8:53 AM CDT) Analysis Performed At Patho logist Time Signature Sodium 139 133 - 144 [place] mmol/L [facility] Potassium 4.9 3.4 - 5.3 [place] mmol/L [facility] Chloride 103 94 - 109 [place] mmol/L [facility] Carbon Dioxide 27 20 - 32 [place] mmol/L [facility] Anion Gap 9 6 - 17 [place] mmol/L [facility] Glucose 145 (H) 70 - 99 [place] mg/dL [facility] Comment: Effective 04/04/2014, the reference range for this assay has changed to reflect new instrumentation/methodology. Urea Nitrogen 19 7 - 30 mg/dL [facility] [place] Comment: Effective 04/04/2014, the reference range for this assay has changed to reflect new instrumentation/methodology. Creatinine 1.03 0.66 - 1.25 mg/dL [facility] GFR Estimate 72 >60 mL/min/1.7m2 [facility] Comment: Non GFR Calc GFR Estimate If Black 87 >60 mL/min/1.7m2 F [facility] Comment: GFR Calc Calcium 9.4 8.5 - 10.1 mg/dL [facility] [place] Comment: Effective 04/04/2014, the reference range for this assay has changed to reflect new instrumentation/methodology. Bilirubin Total 0.6 0.2 - 1.3 mg/dL [facility] Albumin 4.0 3.3 - 4.9 g/dL [facility] Protein Total 6.6 (L) 6.8 - 8.8 g/dL [facility] Alkaline Phosphatase 82 40 - 150 U/L [facility] ALT 21 0 - 70 U/L [facility] AST 12 0 - 45 U/L [facility] Specimen Anatomical Collection Method Collection Time Receive d Time (Source) Location / / Volume Laterality Blood specimen 05/01/2014 8:53 AM 014 8:55 (specimen) CDT AM CDT Andrey Tamez MD LAB - BLOOD ORDERABLES Performing Organization Address City/State/ZIP Code Phon e Number [facility] [address] [place] [address] [facility] [address] [place], [place] [address] documented in this encounter Visit Diagnoses Diagnosis Type 2 diabetes, HbA1C goal < 8% (H) Type II or unspecified type diabetes vijaya litus without mention of complication, not stated as uncontrolled documented in this encounter Care Teams Boat Cleaner Relationship Specialty Start Date End Date Andrey Tamez MD PCP - General 03/26/09 Andrey Tamez MD PCP - Assigned PCP 09/11/12 11/08/18 [address] [place], [place] [phone] Andrey Tamez MD Assigned PCP 09/11/12 09/07/20 [address] [place] [address] documented as of this encounter
--- OUTSIDE RECORDS SUMMARY | 2022-07-09 12:39 | XMS_ITS | Encounter Summary ---
:1945 Author Organization [place] Address [address] [place] [address] Care Team Providers Name Role Phone Andrey Tamez MD Primary Care Provider Andrey Tamez MD Unavailable Andrey Tamez MD Unavailable Encounter Details Date Type Department Care Team Description 10/05/2016 Orders Only [facility] Ess ential hypertension with goal blood pressure less than 140/90 (Primary Dx); [facility] Type 2 diabetes mellitus wit h other circulatory complications (H); [address] Hyperlipidemia LDL goal <100 [place] [address] Social History Tobacco Use Types Packs/Day Years Used Date Smoking Tobacco: Former Cigarettes 0.5 16 Quit : 09/06/1978 Smokeless Tobacco: Never Alcohol Use Standard Drinks/Week Comments Yes 10 (1 standard drink = 0.6 oz pure alcoh ol) A drink every 1-2 weeks. 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 COMPREHENSIVE Routine 10/05/2016 9:00 Essential hypertension R esults for this METABOLIC PANEL AM MOLDER TRIMMER with goal blood procedure are in pressure less than the resul ts 140/90 section. HEMOGLOBIN A1C Routine 10/05/2016 8:55 Type 2 diabetes Results for this AM MOLDER TRIMMER mellitus with other procedur e are in circulatory the results complications (H) section. documented in this encounter Results (ABNORMAL) Lipid Profile (10/05/2016 9:00 AM MOLDER TRIMMER) Analysis Performed At [facility] Signature Cholesterol 146 <200 mg/dL [facility] Triglycerides 186 (H) <150 mg/dL [facility] Comment: Borderline high: ??150-199 mg/dl High: ? 200-499 mg/dl Very high: ? >499 mg/dl Fasting specimen HDL Cholesterol 33 (L) >39 mg/dL [place] [facility] LDL Cholesterol Calculated 76 <100 mg/dL FA [facility] Comment: Desirable: <100 mg/dl Non HDL Cholesterol 113 <130 mg/dL [facility] Specimen Anatomical Collection Method Collection Time Receive d Time (Source) Location / / Volume Laterality Blood specimen 10/05/2016 9:00 AM 017 9:12 (specimen) MOLDER TRIMMER AM MOLDER TRIMMER Andrey Tamez MD LAB - BLOOD ORDERABLES Performing Organization Address City/State/ZIP Code Phon e Number [facility] [address] [place] [address] (ABNORMAL) Comprehensive metabolic panel (10/05/2016 9:00 AM MOLDER TRIMMER) Analysis Performed At [facility] Signature Sodium 139 133 - 144 [place] mmol/L [facility] Potassium 4.9 3.4 - 5.3 [place] mmol/L [facility] Chloride 103 94 - 109 [place] mmol/L [facility] Carbon Dioxide 29 20 - 32 [place] mmol/L [facility] Anion Gap 7 3 - 14 [place] mmol/L [facility] Glucose 203 (H) 70 - 99 [place] mg/dL [facility] Comment: Fasting specimen Urea Nitrogen 18 7 - 30 mg/dL [place] [facility] I[facility] Creatinine 1.14 0.66 - 1.25 mg/dL [place] [facility] IN[facility] GFR Estimate 63 >60 mL/min/1.7m2 [place] [facility] Comment: Non GFR Calc GFR Estimate If Black 77 >60 mL/min/1.7m2 F [facility] Comment: GFR Calc Calcium 9.1 8.5 - 10.1 mg/dL [place] [facility] Bilirubin Total 0.5 0.2 - 1.3 mg/dL [facility] Albumin 3.7 3.4 - 5.0 g/dL [facility] S [facility] Protein Total 7.0 6.8 - 8.8 g/dL [place] [facility] Alkaline Phosphatase 92 40 - 150 U/L [facility] ALT 25 0 - 70 U/L [facility] AST 15 0 - 45 U/L [facility] Specimen Anatomical Collection Method Collection Time Receive d Time (Source) Location / / Volume Laterality Blood specimen 10/05/2016 9:00 AM 017 9:12 (specimen) MOLDER TRIMMER AM MOLDER TRIMMER Andrey Tamez MD LAB - BLOOD ORDERABLES Performing Organization Address City/State/ZIP Code Phon e Number [facility] [address] [place] [address] (ABNORMAL) Hemoglobin A1c (10/05/2016 8:55 AM MOLDER TRIMMER) Analysis Performed At Patho logist Time Signature Hemoglobin A1C 7.7 (H) 4.3 - 6.0 [facility] Specimen Anatomical Collection Method Collection Time Receive d Time (Source) Location / / Volume Laterality Blood specimen 10/05/2016 8:55 AM 017 9:00 (specimen) MOLDER TRIMMER AM MOLDER TRIMMER Andrey Tamez MD LAB - BLOOD ORDERABLES Performing Organization Address City/State/ZIP Code Phon e Number [facility] [address] [place], [place] [address] [address] documented in this encounter Visit Diagnoses Diagnosis Essential hypertension with goal blood p ressure less than 140/90 - Primary 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
--- OUTSIDE RECORDS SUMMARY | 2022-07-09 12:39 | XMS_ITS | Encounter Summary ---
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); [facility] 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); [address] Coronary malcolm ry disease involving [place] coronary artery of [place] heart, angina presence unspecified; [address] Hyperlipidemia LDL goal <100; [place], [place] Essential h ypertension with goal blood pressure less than 140/90 [id number] [phone] Social History Tobacco Use Types Packs/Day Years Used Date Smoking Tobacco: Former Cigarettes 0.5 16 Quit : 09/06/1978 Smokeless Tobacco: Never Alcohol Use Standard Drinks/Week Comments Yes 10 (1 standard drink = 0.6 oz pure alcoh ol) A drink every 1-2 weeks. 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 documented as of this encounter Last Filed Vital Signs Vital Sign Reading Time Taken Comments Blood Pressure 136/66 02/07/2016 9:09 AM CDT Pulse 67 02/07/2016 9:09 AM CDT Temperature 36.6 ??C (97.8 ??F) 02/07/2016 9:09 AM CDT Respiratory Rate 12 02/07/2016 9:09 AM CDT Oxygen Saturation 97% 02/07/2016 9:09 AM CDT Inhaled Oxygen Concentration - - Weight 82.6 kg (182 lb) 02/07/2016 9:09 AM CDT Height 179.1 cm (5' 10.5) 02/07/2016 9:09 AM CDT Body Mass Index 25.75 02/07/2016 9:09 AM CDT documented in this encounter Patient Instructions Patient InstructionsAndrey Tamez MD - 02/07/2016 10:15 AM CDT Everything looks fine! Refills of medications have been faxed to your pharmacy. I'll get back to you with today's lab results soon, especially if there is anything of concern. Be sure to schedule a lab only appointment for June 2016--to recheck A1c. See me in 6-12 months, sooner if problems. documented in this encounter Progress Notes Andrey Tamez MD - 02/07/2016 9:00 AM CDT Images from the original note were not included. SUBJECTIVE: Rodolfo Quevedo is a 70 year old male who presents to clinic today for the following health issues: diabetes mellitus, hyperlipidemia, hypertension, coronary artery disease. Diabetes Follow-up ?? Patient is checking blood sugars: rarely. Results range from 130 to 140 ?? Diabetic concerns: None ?? Symptoms of hypoglycemia (low blood sugar): none ?? Paresthesias (numbness or burning in feet) or sores: Yes, slight burning ?? Date of last diabetic eye exam: 6 months ago Hyperlipidemia Follow-Up ?? Rate your low fat/cholesterol diet?: poor ?? Taking statin? Yes, no muscle aches from statin ?? Other lipid medications/supplements?: none Hypertension Follow-up ?? Outpatient blood pressures are being checked at home. Results are 135/68-70. ?? Low Salt Diet: no added salt ?? Amount of exercise or physical activity: 4-5 days/week for an average of 45- 60 minutes ?? Problems taking medications regularly: No ?? Medication side effects: none ?? Diet: low salt and low fat/cholesterol Checking glucoses about once a week, running 130-140. Exercises regularly, water aerobics 3-4 times per week, also walks on treadmill or outdoors a few times a week. Discussed reducing carbohydrate portions. Past medical, family and social histories as well as medications reviewed and updated as needed. No dyspnea or cough. No chest discomfort, dizziness or palpitations. No diarrhea, abdominal pain or rectal bleeding. No acute problems with vision or speech, lateralizing weakness or paresthesias. ROS: as above or negative for Respiratory, CV, GI, endocrine, neuro systems. OBJECTIVE: BP 136/66 mmHg Pulse 67 Temp(Src) 97.8 ??F (36.6 ??C) (Oral) Resp 12 Ht 5' 10.5 (1.791 m) Wt 182 lb (82.555 kg) BMI 25.74 kg/m2 SpO2 97% Body mass index is 25.74 kg/(m^2). GENERAL: healthy, alert, well nourished, well hydrated, no distress NECK: no tenderness, no adenopathy, no asymmetry, no masses, no stiffness; thyroid- normal to palpation RESP: lungs clear to auscultation - no rales, no rhonchi, no wheezes CV: regular rates and rhythm, normal S1 S2, no S3 or S4 and no murmur, no click or rub - Diabetic foot exam: normal DP and PT pulses, no trophic changes or ulcerative lesions, normal sensory exam. Monofilament exam, findings noted on diabetic foot graphical image; Reduced sensation regions 1, 4, 5, and 6 on right, Reduced sensation regions 4, 5, and 6 on left, intact region 1. 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 Raise metformin dose. Recheck A1c in 06/2016. 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 Plan: metoprolol (LOPRESSOR) 100 MG tablet, ramipril (ALTACE) 10 MG capsule, clopidogrel (PLAVIX) 75 MG tablet (E78.5) Hyperlipidemia LDL goal <100 Comment: Update lipids. Continue current meds. Plan: simvastatin (ZOCOR) 40 MG tablet (I10) Essential hypertension with goal blood pressure less than 140/90 Comment: BP at target. Continue current meds. Patient Instructions Everything looks fine! Refills of medications have been faxed to your pharmacy. I'll get back to you with today's lab results soon, especially if there is anything of concern. Be sure to schedule a lab only appointment for June 2016--to recheck A1c. See me in 6-12 months, sooner if problems. Andrey Tamez MD, [facility] documented in this encounter Nursing Notes Faye Collins - 02/07/2016 9:10 AM CDT Chief Complaint Patient presents with ??? Diabetes ??? Lipids ??? Hypertension Initial BP 136/66 mmHg Pulse 67 Temp(Src) 97.8 ??F (36.6 ??C) (Oral) Resp 12 Ht 5' 10.5 (1.791 m) Wt 182 lb (82.555 kg) BMI 25.74 kg/m2 SpO2 97% Estimated body mass index is 25.74 kg/(m^2) as calculated from the following: Height as of this encounter: 5' 10.5 (1.791 m). Weight as of this encounter: 182 lb (82.555 kg). BP completed using cuff size: large JBuffie BUSINESS ANALYST SAL[employer]PERATIONS documented in this encounter Plan of Treatment Not on filedocumented as of this encounter Procedures Procedure Name Priority Date/Time Associated Diagnosis Comme nts TSH WITH FREE T4 Routine 02/07/2016 10:41 Type 2 diabetes Resu lts for this REFLEX AM CDT mellitus with other procedur e are in circulatory the results complications (H) section. ALBUMIN RANDOM URINE Routine 02/07/2016 10:41 Type 2 diabetes Results for this QUANTITATIVE AM CDT mellitus with other procedur e are in circulatory the results complications (H) section. LIPID REFLEX TO Routine 02/07/2016 10:41 Type 2 diabetes Resul ts for this DIRECT LDL PANEL AM CDT mellitus with other proc edure are in circulatory the results complications (H) section. HEMOGLOBIN A1C Routine 02/07/2016 10:41 Type 2 diabetes Result s for this AM CDT mellitus with other procedur e are in circulatory the results complications (H) section. COMPREHENSIVE Routine 02/07/2016 10:41 Type 2 diabetes Results for this METABOLIC PANEL AM CDT mellitus with other proce dure are in circulatory the results complications (H) section. documented in this encounter Results TSH with free T4 reflex (02/07/2016 10:41 AM CDT) athologist Signature TSH 0.66 0.40 - 4.00 [facility] mU/L [facility] Specimen Anatomical Collection Method Collection Time Receive d Time (Source) Location / / Volume Laterality Blood specimen 02/07/2016 10:41 6 (specimen) AM CDT 10:46 AM CDT Andrey Tamez MD LAB - BLOOD ORDERABLES Performing Organization Address City/State/ZIP Code Phon e [facility] [address] [place] [address] Microalbumin quantitative, random urine (02/07/2016 10:41 AM CDT) athologist Signature Creatinine 138 mg/dL [place] Urine [facility] Albumin Urine 23 mg/L [place] mg/L [facility] Albumin Urine 16.45 0 - 17 [place] mg/g Cr mg/g Cr [facility] Specimen Anatomical Collection Method Collection Time Receive d Time (Source) Location / / Volume Laterality Urine specimen 02/07/2016 10:41 6 (specimen) AM CDT 10:46 AM CDT Andrey Tamez MD LAB - URINE ORDERABLES Performing Organization Address City/State/ZIP Code Phon e Number [facility] [address] [phone] [facility] [address] [address], [place] [phone] (ABNORMAL) Lipid panel reflex to direct LDL (02/07/2016 10:41 AM CDT) Analysis Performed At [facility] logist Time Signature Cholesterol 150 <200 mg/dL [facility] Triglycerides 252 (H) <150 mg/dL [facility] Comment: Borderline high: ??150-199 mg/dl High: ? 200-499 mg/dl Very high: ? >499 mg/dl Fasting specimen HDL Cholesterol 39 (L) >39 mg/dL [place] [facility] CS [facility] LDL Cholesterol Calculated 61 <100 mg/dL FA [facility] Comment: Desirable: <100 mg/dl Non HDL Cholesterol 111 <130 mg/dL [facility] Specimen Anatomical Collection Method Collection Time Receive d Time (Source) Location / / Volume Laterality Blood specimen 02/07/2016 10:41 6 (specimen) AM CDT 10:46 AM CDT Andrey Tamez MD LAB - BLOOD ORDERABLES Performing Organization Address City/State/ZIP Code Phon e Number [facility] [address] [place] [address] (ABNORMAL) Comprehensive metabolic panel (02/07/2016 10:41 AM CDT) [facility] gist Method Time Signature Sodium 141 133 - 144 [place] mmol/L [facility] Potassium 4.8 3.4 - 5.3 [place] mmol/L [facility] Chloride 106 94 - 109 [place] mmol/L [facility] Carbon Dioxide 27 20 - 32 [place] mmol/L [facility] Anion Gap 8 3 - 14 [place] mmol/L [facility] Glucose 149 (H) 70 - 99 [place] mg/dL [facility] Urea Nitrogen 14 7 - 30 [place] mg/dL [facility] Creatinine 1.05 0.66 - [place] 1.25 mg/dL [facility] GFR Estimate 70 >60 [place] mL/min/1.7 CLINICS m2 [facility] Comment: Non GFR Calc GFR Estimate If Black 84 >60 mL/min/1.7m2 F [facility] Comment: GFR Calc Calcium 8.9 8.5 - 10.1 mg/dL [place] [facility] ICS [facility] Bilirubin Total 0.4 0.2 - 1.3 mg/dL [facility] Albumin 3.8 3.4 - 5.0 g/dL [facility] S [facility] Protein Total 6.4 (L) 6.8 - 8.8 g/dL [place] [facility] INICS [facility] Alkaline Phosphatase 78 40 - 150 U/L [facility] EW [facility] ALT 28 0 - 70 U/L [facility] AST 16 0 - 45 U/L [facility] Specimen Anatomical Collection Method Collection Time Receive d Time (Source) Location / / Volume Laterality Blood specimen 02/07/2016 10:41 6 (specimen) AM CDT 10:46 AM CDT Andrey Tamez MD LAB - BLOOD ORDERABLES Performing Organization Address City/State/ZIP Code Phon e Number [facility] [address] [place] [address] (ABNORMAL) Hemoglobin A1c (02/07/2016 10:41 AM CDT) Analysis Performed At Patho logist Time Signature Hemoglobin A1C 7.5 (H) 4.3 - 6.0 [facility] Comment: Reviewed: OK with previous Specimen Anatomical Collection Method Collection Time Receive d Time (Source) Location / / Volume Laterality Blood specimen 02/07/2016 10:41 6 (specimen) AM CDT 10:46 AM CDT Andrey Tamez MD LAB - BLOOD ORDERABLES Performing Organization Address City/State/ZIP Code Phon e Number [facility] [address] [place], [place] [address] [address] documented in this encounter Visit Diagnoses Diagnosis 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s (H) - Primary 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) Type II or unspecified type diabetes vijaya litus with neurological manifestations, not stated as uncontrolled Coronary artery disease involving [place] coronary artery of [place] heart, angina presence unspecified Hyperlipidemia LDL goal <100 Other and unspecified hyperlipidemia Essential hypertension with goal blood p ressure less than 140/90 documented in this encounter Care Teams Sheet Tester Relationship Specialty Start Date End Date Andrey Tamez MD PCP - General 03/26/09 Andrey Tamez MD PCP - Assigned PCP 09/11/12 11/08/18 [address] [address] Andrey Tamez MD Assigned PCP 09/11/12 09/07/20 [address] [place], [place] [address] documented as of this encounter
--- OUTSIDE RECORDS SUMMARY | 2022-07-09 12:39 | XMS_ITS | Encounter Summary ---
:1945 Author Organization [place] Address [address] [place] [address] Care Team Providers Name Role Phone Andrey Tamez MD Primary Care Provider Andrey Tamez MD Unavailable Adnrey Tamez MD Unavailable Encounter Details Date Type Department Care Team Description 06/24/2015 Orders Only [facility] Andrey Tamez, Type 2 diabetes [facility] mellitus with other [address] circulatory [facility] 160 complications (H) [place], [place] (Primary Dx ) [id number] [phone] Social History Tobacco Use Types Packs/Day Years Used Date Smoking Tobacco: Former Cigarettes 0.5 16 Quit : 09/06/1978 Smokeless Tobacco: Never Alcohol Use Standard Drinks/Week Comments Yes 10 (1 standard drink = 0.6 oz pure alcoh ol) A drink every 1-2 weeks. 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
--- OUTSIDE RECORDS SUMMARY | 2022-07-09 12:39 | XMS_ITS | Encounter Summary ---
:1945 Author Organization [facility] Address [address] [place] [address] Care Team Providers Name Role Phone Andrey Tamez MD Primary Care Provider Andrey Tamez MD Unavailable Andrey Tamez MD Unavailable Encounter Details Date Type Department Care Team Description 10/01/2015 Orders Only [facility] Typ e 2 diabetes mellitus with other circulatory complications (H); [facility] Type 2 diabetes, HbA1C goal < 8% (H) [address] [place] [address] Social History Tobacco Use Types Packs/Day Years Used Date Smoking Tobacco: Former Cigarettes 0.5 16 Quit : 09/06/1978 Smokeless Tobacco: Never Alcohol Use Standard Drinks/Week Comments Yes 10 (1 standard drink = 0.6 oz pure alcoh ol) A drink every 1-2 weeks. 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 HEMOGLOBIN A1C Routine 10/01/2015 8:19 Type 2 diabetes Results for this AM MANAGER STRATEGIC SOURCING mellitus with other procedur e are in circulatory the results complications (H) section. COMPREHENSIVE Routine 10/01/2015 8:19 Type 2 diabetes, Results for this METABOLIC PANEL AM MANAGER STRATEGIC SOURCING HbA1C goal < 8% (H) proce myrae are in the results section. documented in this encounter Results (ABNORMAL) Lipid panel reflex to direct LDL (10/01/2015 8:19 AM MANAGER STRATEGIC SOURCING) Analysis Performed At [facility] logist Time Signature Cholesterol 140 <200 mg/dL [facility] Triglycerides 215 (H) <150 mg/dL [facility] Comment: Borderline high: ??150-199 mg/dl High: ? 200-499 mg/dl Very high: ? >499 mg/dl HDL Cholesterol 41 >39 mg/dL [place] [facility] LDL Cholesterol Calculated 56 <100 mg/dL [facility] Comment: Desirable: <100 mg/dl Non HDL Cholesterol 99 <130 mg/dL [facility] Specimen Anatomical Collection Method Collection Time Receive d Time (Source) Location / / Volume Laterality Blood specimen 10/01/2015 8:19 AM 016 8:24 (specimen) MANAGER STRATEGIC SOURCING AM MANAGER STRATEGIC SOURCING Andrey Tamez MD LAB - BLOOD ORDERABLES Performing Organization Address City/State/ZIP Code Phon e Number [facility] [address] [place] [address] (ABNORMAL) Comprehensive metabolic panel (10/01/2015 8:19 AM MANAGER STRATEGIC SOURCING) [facility] gist [facility] Time Signature Sodium 140 133 - 144 [place] mmol/L [facility] Potassium 4.1 3.4 - 5.3 [place] mmol/L [facility] Chloride 105 94 - 109 [place] mmol/L [facility] Carbon Dioxide 26 20 - 32 [place] mmol/L [facility] Anion Gap 9 3 - 14 [place] mmol/L [facility] Glucose 144 (H) 70 - 99 [facility] mg/dL [facility] Urea Nitrogen 18 7 - 30 [place] mg/dL [facility] Creatinine 0.99 0.66 - [place] 1.25 mg/dL [facility] GFR Estimate 75 >60 [place] mL/min/1.7 [facility] m2 [facility] Comment: Non GFR Calc GFR Estimate If Black >90 >60 mL/min/1.7m2 F [facility] GFR Calc [facility] Calcium 8.2 (L) 8.5 - 10.1 mg/dL [place] [facility] Bilirubin Total 0.4 0.2 - 1.3 mg/dL [facility] Albumin 3.6 3.4 - 5.0 g/dL [place] [facility] Protein Total 6.2 (L) 6.8 - 8.8 g/dL [place] [facility] IN[facility] Alkaline Phosphatase 82 40 - 150 U/L [facility] EW [facility] ALT 25 0 - 70 U/L [facility] AST 13 0 - 45 U/L [facility] Specimen Anatomical Collection Method Collection Time Receive d Time (Source) Location / / Volume Laterality Blood specimen 10/01/2015 8:19 AM 016 8:24 (specimen) MANAGER STRATEGIC SOURCING AM MANAGER STRATEGIC SOURCING Andrey Tamez MD LAB - BLOOD ORDERABLES Performing Organization Address City/State/ZIP Code Phon e Number [facility] [address] [place] [address] (ABNORMAL) Hemoglobin A1c (10/01/2015 8:19 AM MANAGER STRATEGIC SOURCING) Analysis Performed At Patho logist Time Signature Hemoglobin A1C 7.0 (H) 4.3 - 6.0 [facility] Comment: Reviewed: OK with previous Specimen Anatomical Collection Method Collection Time Receive d Time (Source) Location / / Volume Laterality Blood specimen 10/01/2015 8:19 AM 016 8:24 (specimen) MANAGER STRATEGIC SOURCING AM MANAGER STRATEGIC SOURCING Andrey Tamez MD LAB - BLOOD ORDERABLES Performing Organization Address City/State/ZIP Code Phon e Number [facility] [address] [place], [place] [address] [address] documented in this encounter Visit Diagnoses Diagnosis 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s (H) Type 2 diabetes, HbA1C goal < 8% (H) Type II or unspecified type diabetes vijaya litus without mention of complication, not stated as uncontrolled documented in this encounter Care Teams Staff Forester Relationship Specialty Start Date End Date Andrey Tamez MD PCP - General 03/26/09 Andrey Tamez MD PCP - Assigned PCP 09/11/12 11/08/18 [address] [place], [place] [phone] Andrey Tamez MD Assigned PCP 09/11/12 09/07/20 [address] [place], [place] [phone] documented as of this encounter
--- OUTSIDE RECORDS SUMMARY | 2022-07-09 12:39 | XMS_ITS | Encounter Summary ---
:1945 Author Organization [facility] Address [address] [place] [address] Care Team Providers Name Role Phone Andrey Tamez MD Primary Care Provider Andrey Tamez MD Unavailable Andrey Taemz MD Unavailable Reason for Visit Reason Onset Date Comments Refill Request 01/15/2015 multiple medications Orders 01/15/2015 labs Encounter Details Date Type Department Care Team Description 01/15/2015 Refill [facility] Andrey Tamez MD Refill Request Clinic [place] [address] (multiple medications); [address] Orders (labs) [place] [address] [place], [place] [phone] (Wo rk) [address] [phone] Social History Tobacco Use Types Packs/Day Years Used Date Smoking Tobacco: Former Cigarettes 0.5 16 Quit : 09/06/1978 Smokeless Tobacco: Never Alcohol Use Standard Drinks/Week Comments Yes 10 (1 standard drink = 0.6 oz pure alcoh ol) A drink every 1-2 weeks. 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 Future OV 02/07/15. Refill request approved per [facility] refill protocol. Also needs labs placed for upcoming lab only appt. Orders placed for Lipid panel, CBC, A1c, CMP and Microalbumin. documented in this encounter Plan of Treatment Not on filedocumented as of this encounter Results Microalbumin quantitative, random urine (01/24/2015 8:28 AM CDT) P athologist Signature Creatinine 75 mg/dL [facility] Urine [facility] Albumin Urine 7 mg/L [place] mg/L [facility] Albumin Urine 9.50 0 - 17 [place] mg/g Cr mg/g Cr [facility] Specimen Anatomical Collection Method Collection Time Receive d Time (Source) Location / / Volume Laterality Urine specimen 01/24/2015 8:28 AM 015 8:33 (specimen) CDT AM CDT Andrey Tamez MD LAB - URINE ORDERABLES Performing Organization Address City/State/ZIP Code Phon e Number [facility] [address] [place] [address] [phone] [facility] [address] [place] [address], [facility] [phone] (ABNORMAL) Hemoglobin A1c (01/24/2015 8:27 AM CDT) Analysis Performed At Patho logist Time Signature Hemoglobin A1C 7.3 (H) 4.3 - 6.0 [facility] Comment: Reviewed: OK with previous Specimen Anatomical Collection Method Collection Time Receive d Time (Source) Location / / Volume Laterality Blood specimen 01/24/2015 8:27 AM 015 8:32 (specimen) CDT AM CDT Andrey Tamez MD LAB - BLOOD ORDERABLES Performing Organization Address City/State/ZIP Code Phon e Number [facility] [address] [place] [address] [address] (ABNORMAL) Lipid Profile with reflex to direct LDL (01/24/2015 8:27 AM CDT) P athologist Signature Cholesterol 135 <200 mg/dL [facility] Comment: LDL Cholesterol is the primary guide to therapy. The NCEP recommends further evaluation of: patients with cholesterol greater than 200 mg/dL if additional risk facto rs are present, cholesterol greater than 240 mg/dL, triglycerides greater than 1 50 mg/dL, or HDL less than 40 mg/dL. Triglycerides 216 (H) 0 - 150 mg/dL [facility] HDL Cholesterol 35 (L) >40 mg/dL [facility] LDL Cholesterol Calculated 57 0 - 129 mg/dL [facility] Comment: LDL Cholesterol is the primary guide to therapy: LDL-cholesterol goal in high risk patients is <100 mg/dL and in very high risk patients is <70 mg/dL. VLDL-Cholesterol 43 (H) 0 - 30 mg/dL [facility] Cholesterol/HDL Ratio 3.9 0.0 - 5.0 [facility] Specimen Anatomical Collection Method Collection Time Receive d Time (Source) Location / / Volume Laterality Blood specimen 01/24/2015 8:27 AM 015 8:32 (specimen) CDT AM CDT Andrey Tamez MD LAB - BLOOD ORDERABLES Performing Organization Address City/State/ZIP Code Phon e Number [facility] [address] [place] [address] (ABNORMAL) Comprehensive metabolic panel (BMP + Alb, Alk Phos, ALT, AST, Total. Bili, TP) (01/24/2015 8:27 AM CDT) Patholo gist Method Time Signature Sodium 138 133 - 144 [place] mmol/L [facility] Potassium 4.2 3.4 - 5.3 [place] mmol/L [facility] Chloride 105 94 - 109 [place] mmol/L [facility] Carbon Dioxide 27 20 - 32 [place] mmol/L [facility] Anion Gap 6 3 - 14 [place] mmol/L [facility] Glucose 159 (H) 70 - 99 [place] mg/dL [facility] Urea Nitrogen 19 7 - 30 [place] mg/dL [facility] Creatinine 0.98 0.66 - [place] 1.25 mg/dL [facility] GFR Estimate 75 >60 [facility] mL/min/1.7 [facility] Comment: Non GFR Calc GFR Estimate If Black >90 >60 mL/min/1.7m2 F [facility] GFR Calc [place] [facility] Calcium 8.8 8.5 - 10.1 mg/dL [facility] Bilirubin Total 0.4 0.2 - 1.3 mg/dL [facility] Albumin 3.7 3.4 - 5.0 g/dL [facility] Protein Total 6.2 (L) 6.8 - 8.8 g/dL [facility] Alkaline Phosphatase 96 40 - 150 U/L [facility] ALT 26 0 - 70 U/L [facility] AST 12 0 - 45 U/L [facility] Specimen Anatomical Collection Method Collection Time Receive d Time (Source) Location / / Volume Laterality Blood specimen 01/24/2015 8:27 AM 015 8:32 (specimen) CDT AM CDT Andrey Tamez MD LAB - BLOOD ORDERABLES Performing Organization Address City/State/ZIP Code Phon e Number [facility] [address] [place] [address] (ABNORMAL) CBC with platelets (01/24/2015 8:27 AM CDT) P athologist Signature WBC 6.8 4.0 - 11.0 [facility] 10e9/L [facility] RBC Count 4.26 (L) 4.4 - 5.9 [facility] 10e12/L [facility] Comment: Reviewed: OK with previous Hemoglobin 14.2 13.3 - 17.7 g/dL [facility] Hematocrit 42.7 40.0 - 53.0 % [facility] MCV 100 78 - 100 fl [facility] MCH 33.3 (H) 26.5 - 33.0 pg [facility] Comment: Reviewed: OK with previous MCHC 33.3 31.5 - 36.5 g/dL [facility] [place] RDW 11.9 10.0 - 15.0 % [facility] Platelet Count 185 150 - 450 10e9/L [facility] Specimen Anatomical Collection Method Collection Time Receive d Time (Source) Location / / Volume Laterality Blood specimen 01/24/2015 8:27 AM 015 8:32 (specimen) CDT AM CDT Andrey Tamez MD LAB - BLOOD ORDERABLES Performing Organization Address City/State/ZIP Code Phon e Number [facility] [address] [place], [place] [address] [address] documented in this encounter Visit Diagnoses Diagnosis Type 2 diabetes, HbA1C goal < 8% (H) - P rimary Type II or unspecified type diabetes vijaya litus without mention of complication, not stated as uncontrolled Unspecified essential hypertension Hyperlipidemia LDL goal <100 Other and unspecified hyperlipidemia Coronary artery disease due to lipid serene h plaque documented in this encounter Care Teams Glue Machine Operator Relationship Specialty Start Date End Date Andrey Tamez MD PCP - General 03/26/09 Andrey Tamez MD PCP - Assigned PCP 09/11/12 11/08/18 [address] [place] [address] Andrey Tamez MD Assigned PCP 09/11/12 09/07/20 [address] [place] [address] documented as of this encounter
--- OUTSIDE RECORDS SUMMARY | 2022-07-09 12:39 | XMS_ITS | Encounter Summary ---
:1945 Author Organization [facility] Address [address] [place] [address] Care Team Providers Name Role Phone Andrey Tamez MD Primary Care Provider Andrey Tamez MD Unavailable Andrey Tamez MD Unavailable Reason for Visit Reason Comments Flu Shot Encounter Details Date Type Department Care Team Description 07/08/2013 Allied Health/Nurse [facility] Nicho Alonso Flu Shot Visit Bryant Marvin MD [facility] [place] [address] Social History Tobacco Use Types Packs/Day Years Used Date Smoking Tobacco: Former Cigarettes 0.5 16 Quit : 09/06/1978 Smokeless Tobacco: Never Alcohol Use Standard Drinks/Week Comments Yes 10 (1 standard drink = 0.6 oz pure alcoh ol) A drink every 1-2 weeks. 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 Is the person to be vaccinated sick today? No 2. Does the person to be vaccinated have an allergy to eggs or to a component of the vaccine? No 3. Has the person to be vaccinated today ever had a serious reaction to influenza vaccine in the past? No 4. Has the person to be vaccinated ever had Guillain-Guayama syndrome? No Form completed by Rodolfo Quevedo Form reviewed by Belkis Chaves.Ph. [facility] [phone] documented in this encounter Plan of Treatment Not on filedocumented as of this encounter Visit Diagnoses Diagnosis Need for prophylactic vaccination and in oculation against influenza - Primary documented in this encounter Care Teams Silver Wrapper Relationship Specialty Start Date End Date Andrey Tamez MD PCP - General 03/26/09 Andrey Tamez MD PCP - Assigned PCP 09/11/12 11/08/18 [address] [place] [address] Andrey Tamez MD Assigned PCP 09/11/12 09/07/20 [address] [place] [address] documented as of this encounter
--- OUTSIDE RECORDS SUMMARY | 2022-07-09 12:39 | XMS_ITS | Encounter Summary ---
:1945 Author Organization [facility] Address [address] [place] [address] Care Team Providers Name Role Phone Andrey Tamez MD Primary Care Provider Andrey Tamez MD Unavailable Andrey Tamez MD Unavailable Reason for Visit Reason Onset Date Comments Refill Request 01/24/2014 multiple meds Encounter Details Date Type Department Care Team Description 01/24/2014 Refill [facility] Andrey Tamez MD Refill Request Clinic [facility] [address] [facility] (multiple meds) [address] [place] [address] [place], [place] [phone] (Wo rk) [address] [phone] Social History Tobacco Use Types Packs/Day Years Used Date Smoking Tobacco: Former Cigarettes 0.5 16 Quit : 09/06/1978 Smokeless Tobacco: Never Alcohol Use Standard Drinks/Week Comments Yes 10 (1 standard drink = 0.6 oz pure alcoh ol) A drink every 1-2 weeks. 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 Last o/v 10/19/12. BP Readings from Last 3 Encounters: 10/19/12 122/82 10/26/11 151/81 10/26/11 151/81 Last labs as follows: Recent Labs Lab Test 01/11/14 0817 06/29/13 0907 CHOL 172 147 HDL 33* 38* LDL 102 78 TRIG 182* 156* CHOLHDLRATIO 5.1* 3.8 ALT 28 01/11/2014 AST 20 01/11/14 WBC 6.7 06/20/2011 RBC 4.84 06/20/2011 HGB 16.0 06/20/2011 HCT 47.2 06/20/2011 No components found with this name: mct MCV 98 06/20/2011 MCH 33.1 06/20/2011 MCHC 33.9 06/20/2011 RDW 12.2 06/20/2011 PLT 182 06/20/2011 LDL goal is <100. No recent CBC. MD has not reviewed most recent lab results. MD authorization required. Cynthia Triana RN documented in this encounter Plan of Treatment Not on filedocumented as of this encounter Visit Diagnoses Diagnosis CAD (coronary artery disease) Coronary atherosclerosis of unspecified type of vessel, [place] or graft Unspecified essential hypertension documented in this encounter Care Teams Morphologist Relationship Specialty Start Date End Date Andrey Tamez MD PCP - General 03/26/09 Andrey Tamez MD PCP - Assigned PCP 09/11/12 11/08/[address] [place] [address] Andrey Tamez MD Assigned PCP 09/11/12 09/07/[address] [place] [address] documented as of this encounter
--- OUTSIDE RECORDS SUMMARY | 2022-07-09 12:39 | XMS_ITS | Encounter Summary ---
:1945 Author Organization [place] Address [address] [place] [address] Care Team Providers Name Role Phone Andrey Tamez MD Primary Care Provider Andrey Tamez MD Unavailable Andrey Tamez MD Unavailable Encounter Details Date Type Department Care Team Description 01/11/2014 Orders Only [facility] Typ e 2 diabetes, HbA1C [facility] goal < 8% (H) [address] [place] [address] Social History Tobacco Use Types Packs/Day Years Used Date Smoking Tobacco: Former Cigarettes 0.5 16 Quit : 09/06/1978 Smokeless Tobacco: Never Alcohol Use Standard Drinks/Week Comments Yes 10 (1 standard drink = 0.6 oz pure alcoh ol) A drink every 1-2 weeks. 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 TSH WITH FREE T4 Routine 01/11/2014 8:17 AM Type 2 diabetes, R esults for this REFLEX CDT HbA1C goal < 8% (H) procedur e are in the results section. LIPID REFLEX TO DIRECT Routine 01/11/2014 8:17 AM Type 2 diabe jamila, Results for this LDL PANEL CDT HbA1C goal < 8% (H) procedur e are in the results section. HEMOGLOBIN A1C Routine 01/11/2014 8:17 AM Type 2 diabetes, Res ults for this CDT HbA1C goal < 8% (H) procedur e are in the results section. COMPREHENSIVE Routine 01/11/2014 8:17 AM Type 2 diabetes, Resu lts for this METABOLIC PANEL CDT HbA1C goal < 8% (H) proce dure are in the results section. documented in this encounter Results Microalbumin quantitative, random urine (01/11/2014 8:18 AM CDT) P athologist Signature Creatinine 100 mg/dL [facility] Urine [facility] Albumin Urine 6 mg/L [facility] mg/L [facility] Albumin Urine 6.00 0 - 17 [facility] mg/g Cr mg/g Cr [facility] Specimen Anatomical Collection Method Collection Time Receive d Time (Source) Location / / Volume Laterality Urine specimen 01/11/2014 8:18 AM 014 8:23 (specimen) CDT AM CDT Andrey Tamez MD LAB - URINE ORDERABLES Performing Organization Address City/State/ZIP Code Phon e Number [facility] [address] [place], [place] [phone] [place] [address] LABS (ABNORMAL) Lipid panel reflex to direct LDL (01/11/2014 8:17 AM CDT) P athologist Signature Cholesterol 172 <200 mg/dL [facility] Comment: LDL Cholesterol is the primary guide to therapy. The NCEP recommends further evaluation of: patients with cholesterol greater than 200 mg/dL if additional risk facto rs are present, cholesterol greater than 240 mg/dL, triglycerides greater than 1 50 mg/dL, or HDL less than 40 mg/dL. Triglycerides 182 (H) 0 - 150 mg/dL [facility] [place] HDL Cholesterol 33 (L) >40 mg/dL [facility] LDL Cholesterol Calculated 102 0 - 129 mg/dL [facility] Comment: LDL Cholesterol is the primary guide to therapy: LDL-cholesterol goal in high risk patients is <100 mg/dL and in very high risk patients is <70 mg/dL. VLDL-Cholesterol 36 (H) 0 - 30 mg/dL [facility] Cholesterol/HDL Ratio 5.1 (H) 0.0 - 5.0 [facility] [place] Specimen Anatomical Collection Method Collection Time Receive d Time (Source) Location / / Volume Laterality Blood specimen 01/11/2014 8:17 AM 014 8:22 (specimen) CDT AM CDT Andrey Tamez MD LAB - BLOOD ORDERABLES Performing Organization Address City/[facility]/ZIP Code Phon e Number [facility] [address] [place] [address] (ABNORMAL) Hemoglobin A1c (01/11/2014 8:17 AM CDT) Analysis Performed At Patho logist Time Signature Hemoglobin A1C 7.7 (H) 4.3 - 6.0 [facility] Comment: Reviewed: OK with previous Specimen Anatomical Collection Method Collection Time Receive d Time (Source) Location / / Volume Laterality Blood specimen 01/11/2014 8:17 AM 014 8:22 (specimen) CDT AM CDT Andrey Tamez MD LAB - BLOOD ORDERABLES Performing Organization Address City/[facility]/ZIP Code Phon e Number [facility] [address] [place], [place] [address] [address] (ABNORMAL) Comprehensive metabolic panel (01/11/2014 8:17 AM CDT) P athologist Signature Sodium 137 133 - 144 [place] mmol/L [facility] Potassium 4.4 3.4 - 5.3 [facility] mmol/L [facility] Chloride 101 94 - 109 [place] mmol/L [facility] Carbon Dioxide 26 20 - 32 [place] mmol/L [facility] Anion Gap 10 6 - 17 [place] mmol/L [facility] Glucose 158 (H) 60 - 99 [place] mg/dL [facility] Comment: Fasting specimen Urea Nitrogen 22 7 - 30 mg/dL [facility] Creatinine 0.90 0.66 - 1.25 mg/dL [facility] GFR Estimate 84 >60 mL/min/1.7m2 [facility] GFR Estimate If Black >90 >60 mL/min/1.7m2 F [facility] [place] Calcium 9.0 8.5 - 10.4 mg/dL [facility] Bilirubin Total 0.5 0.2 - 1.3 mg/dL [facility] [place] Albumin 3.8 3.3 - 4.9 g/dL [facility] [place] Comment: Reference range changed on 05/08. Protein Total 6.3 (L) 6.8 - 8.8 g/dL [facility] Comment: As of 08, reference range reflects plasma specimen type. Alkaline Phosphatase 83 40 - 150 U/L [facility] [place] ALT 28 0 - 70 U/L [facility] AST 20 0 - 45 U/L [facility] Specimen Anatomical Collection Method Collection Time Receive d Time (Source) Location / / Volume Laterality Blood specimen 01/11/2014 8:17 AM 014 8:22 (specimen) CDT AM CDT Andrey Tamez MD LAB - BLOOD ORDERABLES Performing Organization Address City/[facility]/ZIP Code Phon e Number [facility] [address] [place] [address] TSH with free T4 reflex (01/11/2014 8:17 AM CDT) P athologist Signature TSH 0.98 0.4 - 5.0 [facility] mU/L [place] Specimen Anatomical Collection Method Collection Time Receive d Time (Source) Location / / Volume Laterality Blood specimen 01/11/2014 8:17 AM 014 8:22 (specimen) CDT AM CDT Andrey Tamez MD LAB - BLOOD ORDERABLES Performing Organization Address City/[facility]/ZIP [facility] [place] Phon e Number [facility] [address] [place] [address] [facility] [address] [place], [place] [address] documented in this encounter Visit Diagnoses Diagnosis Type 2 diabetes, HbA1C goal < 8% (H) Type II or unspecified type diabetes vijaya litus without mention of complication, not stated as uncontrolled documented in this encounter Care Teams Administrative Services Specialist Relationship Specialty Start Date End Date Andrey Tamez MD PCP - General 03/26/09 Andrey Tamez MD PCP - Assigned PCP 09/11/12 11/08/[address] [id number] Andrey Tamez MD Assigned PCP 09/11/12 09/07/[address] [phone] documented as of this encounter
--- OUTSIDE RECORDS SUMMARY | 2022-07-09 12:39 | XMS_ITS | Encounter Summary ---
:1945 Author Organization [place] Address [address] [place] [address] Care Team Providers Name Role Phone Andrey Tamez MD Primary Care Provider Andrey Tamez MD Unavailable Andrey Tamez MD Unavailable Reason for Visit Reason Onset Date Comments Refill Request 06/28/2014 SImvastatin Metformi n Encounter Details Date Type Department Care Team Description 06/28/[address] [facility] Andrey Tamez MD Refill Request Clinic [place] [address] [facility] (SImvastatin Metformin) [address] [place] [address] [place] [address] [place], [place] [phone] (Wo rk) [address] [phone] Social History Tobacco Use Types Packs/Day Years Used Date Smoking Tobacco: Former Cigarettes 0.5 16 Quit : 09/06/1978 Smokeless Tobacco: Never Alcohol Use Standard Drinks/Week Comments Yes 10 (1 standard drink = 0.6 oz pure alcoh ol) A drink every 1-2 weeks. 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 BP Readings from Last 3 Encounters: 01/31/14 138/74 10/19/12 122/82 10/26/11 151/81 Creatinine Date Value Range Status 05/01/2014 1.03 0.66 - 1.25 mg/dL Final Recent Labs Lab Test 05/01/14 0853 01/11/14 0817 CHOL 170 172 HDL 45 33* LDL 87 102 TRIG 188* 182* CHOLHDLRATIO 3.8 5.1* LDL Cholesterol Calculated Date Value Range Status 05/01/2014 87 0 - 129 mg/dL Final LDL Cholesterol is the primary guide to therapy: LDL-cholesterol goal in high risk patients is <100 mg/dL and in very high risk patients is <70 mg/dL. MICROL 6 01/11/2014 MICROALBUMIN 6.00 01/11/2014 A1C 6.5 05/01/2014 A1C 7.7 01/11/2014 A1C 7.1 06/29/2013 A1C 7.2 10/11/2012 A1C 7.7 03/23/2012 Telephone Encounter - Bernice Choe - 06/28/2014 6:14 PM CDT Refill request from [facility] pharmacy for: SImvastatin05/01/14 Metformin 05/01/14 Last O/V: 01/31/14 Last Refill: see above documented in this encounter Plan of Treatment Not on filedocumented as of this encounter Visit Diagnoses Diagnosis CAD (coronary artery disease) Coronary atherosclerosis of unspecified type of vessel, [place] or graft Type 2 diabetes, HbA1C goal < 8% (H) Type II or unspecified type diabetes vijaya litus without mention of complication, not stated as uncontrolled documented in this encounter Care Teams [employer] Lieutenant Relationship Specialty Start Date End Date Andrey Tamez MD PCP - General 03/26/09 Andrey Tamez MD PCP - Assigned PCP 09/11/12 11/08/18 [address] [facility] [address] [place] [address] Andrey Tamez MD Assigned PCP 09/11/12 09/07/20 [address] [facility] [address] [place] [address] documented as of this encounter
--- OUTSIDE RECORDS SUMMARY | 2022-07-09 12:39 | XMS_ITS | Encounter Summary ---
:1945 Author Organization [place] Address [address] [place] [address] Care Team Providers Name Role Phone Andrey Tamez MD Primary Care Provider Andrey Tamez MD Unavailable Andrey Tamez MD Unavailable Reason for Visit Reason Onset Date Comments Refill Request 10/15/2015 multiple meds Encounter Details Date Type Department Care Team Description 10/15/2015 Refill [facility] Andrey Tamez MD Refill Request Clinic [place] [address] [facility] (multiple meds) [address] [place] [address] [place] [address] [place], [place] [phone] (Wo rk) [address] [phone] Social History Tobacco Use Types Packs/Day Years Used Date Smoking Tobacco: Former Cigarettes 0.5 16 Quit : 09/06/1978 Smokeless Tobacco: Never Alcohol Use Standard Drinks/Week Comments Yes 10 (1 standard drink = 0.6 oz pure alcoh ol) A drink every 1-2 weeks. 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 I don't see anything scheduled. Chai Baker, RN IFIED MEDICAL BILLER Telephone Encounter - Andrey Tamez MD - 10/18/2015 11:56 AM CST Needs to schedule fasting lab only appointment and office visit a few days later. Please advise pt. IFIED MEDICAL BILLER Telephone Encounter - Dayna Molina RN - 10/16/2015 4:23 PM CST Routing refill request to provider for review/approval because: Labs out of range: IFIED MEDICAL BILLER Telephone Encounter - Aditi Yeager - 10/15/2015 11:09 AM CST Metformin 500 Last Written Prescription Date: 02/07/15 Last Fill Quantity: 270, # refills: 1 Last Office Visit [place] [facility] [place] care provider: 02/07/15 MICROL 7 01/24/2015 MICROALBUMIN 9.50 01/24/2015 CREATININE Date Value Ref Range Status 10/01/2015 0.99 0.66 - 1.25 mg/dL Final ] CHOL 140 10/01/2015 HDL 41 10/01/2015 LDL 56 10/01/2015 TRIG 215 10/01/2015 CHOLHDLRATIO 3.9 01/24/2015 AST 13 10/01/2015 ALT 25 10/01/2015 BP Readings from Last 3 Encounters: 02/07/15 124/70 01/31/14 138/74 10/19/12 122/82 A1C 7.0 10/01/2015 A1C 7.3 01/24/2015 A1C 6.5 05/01/2014 A1C 7.7 01/11/2014 A1C 7.1 06/29/2013 POTASSIUM Date Value Ref Range Status 10/01/2015 4.1 3.4 - 5.3 mmol/L Final Labs showing if normal/abnormal Lab Results Component Value Date UCRR 75 01/24/2015 MICROL 7 01/24/2015 MICROALBUMIN 9.50 01/24/2015 Lab Results Component Value Date CHOL 140 10/01/2015 TRIG 215* 10/01/2015 HDL 41 10/01/2015 LDL 56 10/01/2015 VLDL 43* 01/24/2015 CHOLHDLRATIO 3.9 01/24/2015 Lab Results Component Value Date A1C 7.0* 10/01/2015 A1C 7.3* 01/24/2015 A1C 6.5* 05/01/2014 Metoprolol 100 Last Written Prescription Date: 02/07/15 Last Fill Quantity: 180, # refills: 1 Last Office Visit with [facility] [place] care provider: 02/07/15 Future Office Visit: BP Readings from Last 3 Encounters: 02/07/15 124/70 01/31/14 138/74 10/19/12 122/82 Simvastatin 40 Last Written Prescription Date: 02/07/15 Last Fill Quantity: 90, # refills: 1 Last Office Visit with [facility] primary care provider: 02/07/15 CHOL 140 10/01/2015 HDL 41 10/01/2015 LDL 56 10/01/2015 TRIG 215 10/01/2015 CHOLHDLRATIO 3.9 01/24/2015 Labs showing if normal/abnormal Lab Results Component Value Date CHOL 140 10/01/2015 TRIG 215* 10/01/2015 HDL 41 10/01/2015 LDL 56 10/01/2015 VLDL 43* 01/24/2015 CHOLHDLRATIO 3.9 01/24/2015 Clopidogrel 75 Last Written Prescription Date: 02/07/15 Last Fill Quantity: 90, # refills: 1 Last Office Visit with [facility] [place] care provider: 02/07/15 Future Office Visit: WBC 6.8 01/24/2015 RBC 4.26 01/24/2015 HGB 14.2 01/24/2015 HCT 42.7 01/24/2015 No components found with this name: mct MCV 100 01/24/2015 MCH 33.3 01/24/2015 MCHC 33.3 01/24/2015 RDW 11.9 01/24/2015 PLT 185 01/24/2015 AST 13 10/01/2015 ALT 25 10/01/2015 CREATININE Date Value Ref Range Status 10/01/2015 0.99 0.66 - 1.25 mg/dL Final ] Labs showing if normal/abnormal Lab Results Component Value Date WBC 6.8 01/24/2015 RBC 4.26* 01/24/2015 HGB 14.2 01/24/2015 HCT 42.7 01/24/2015 MCV 100 01/24/2015 MCH 33.3* 01/24/2015 MCHC 33.3 01/24/2015 RDW 11.9 01/24/2015 PLT 185 01/24/2015 DTYP Automated Method 06/20/2011 NEUTROPHIL 64.2 06/20/2011 LYMPH 20.1 06/20/2011 MONOCYTE 10.4 06/20/2011 EOSINOPHIL 4.7 06/20/2011 BASOPHIL 0.3 06/20/2011 IG 0.3 06/20/2011 ANEU 4.3 06/20/2011 ALYM 1.3 06/20/2011 IAN 0.7 06/20/2011 AEOS 0.3 06/20/2011 ABAS 0.0 06/20/2011 AIG 0.0 06/20/2011 Lab Results Component Value Date AST 13 10/01/2015 ALT 25 10/01/2015 Ramipril 10 Last Written Prescription Date: 02/07/15 Last Fill Quantity: 180, # refills: 1 Last Office Visit with [facility] [place] care provider: 02/07/15 POTASSIUM Date Value Ref Range Status 10/01/2015 4.1 3.4 - 5.3 mmol/L Final CREATININE Date Value Ref Range Status 10/01/2015 0.99 0.66 - 1.25 mg/dL Final BP Readings from Last 3 Encounters: 02/07/15 124/70 01/31/14 138/74 10/19/12 122/82 IFIED MEDICAL BILLER documented in this encounter Plan of Treatment Not on filedocumented as of this encounter Visit Diagnoses Diagnosis Type 2 diabetes, HbA1C goal < 8% (H) - P rimary Type II or unspecified type diabetes vijaya litus without mention of complication, not stated as uncontrolled Hyperlipidemia LDL goal <100 Other and unspecified hyperlipidemia Coronary artery disease involving [place] coronary artery of [place] heart, angina presence unspecified Essential hypertension Unspecified essential hypertension documented in this encounter Care Teams Block Press Operator Relationship Specialty Start Date End Date Andrey Tamez MD PCP - General 03/26/09 Andrey Tamez MD PCP - Assigned PCP 09/11/12 11/08/18 [address] [place] [address] Andrey Tamez MD Assigned PCP 09/11/12 09/07/20 [address] [place] [address] documented as of this encounter
--- OUTSIDE RECORDS SUMMARY | 2022-07-09 12:39 | XMS_ITS | Encounter Summary ---
:1945 Author Organization [place] Address [address] [place] [address] Care Team Providers Name Role Phone Andrey Tamez MD Primary Care Provider Andrey Tamez MD Unavailable Andrey Tamez MD Unavailable Reason for Visit Reason Comments Health Coaching - Research Face #5 Encounter Details Date Type Department Care Team Description 11/08/2013 Allied Health/Nurse Health [facility] Coaching - Visit [facility] (Face #5) [address] [place] [phone] Social History Tobacco Use Types Packs/Day Years Used Date Smoking Tobacco: Former Cigarettes 0.5 16 Quit : 09/06/1978 Smokeless Tobacco: Never Alcohol Use Standard Drinks/Week Comments Yes 10 (1 standard drink = 0.6 oz pure alcoh ol) A drink every 1-2 weeks. 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 [address] [phone] Health Coaching Progress Note Patient Name: Rodolfo Quevedo Date: November 08, 2013 Plan: (Homework, other): Patient was encouraged to continue using [employer] to seek condition-related information and education, as well as schedule a follow up appointment with the Health Casing Crew Pusher in 3 weeks Patient has set self-identified goals and will monitor progress until the next appointment. GOALS: Patient will work on the following goals until our next meeting November 29 - : 1) When shopping don't buy treats/snacks 80% of time 2) Get rid of cookies and treats that are currently in the house by 11/09. 3) Continue exercise 5-6x a week 4) Follow recommended carbohydrate intake 4-5x a week 5) Go back into [employer] and do a lesson 1x a day = 7 lessons a week Leslee Godoy Health Casing Crew Pusher 11/08/2013 11:42 AM L COORDINATOR documented in this encounter Progress Notes Leslee Godoy - 11/08/2013 12:03 PM CST November 08, [address] [address] Health Coaching Progress Note Patient Name: Rodolfo Quevedo Date: November 08, 2013 Session Length: 30 DATA PRM Master Survey Scores Reviewed: No PROMIS Total Score: Core Healthy Days Survey: [place] Score (Last Two) 06/21/2013 [place] Raw Score 37 Activation Score 49.9 [place] Level 2 PHQ-2 Score: Treatment Objective(s) Addressed in This Session: Target Behavior(s): diet/weight loss and disease management/lifestyle changes Current Stressors / Issues: Having difficulty changing nutrition behavior, yet wants good labs in December to reduce/eliminate medications. Intervention: Motivational Interviewing AR Intervention: Expressed Empathy/Understanding, Supported Autonomy, Collaboration, Evocation, Permission to raise concern or advise, Open-ended questions, Reflections: simple and complex, Rolled withresistance: Simple reflection, Complex reflection and Double-sided reflection: (sustain talk) you have not been the A+ you'd like to be with nutrition and yet making lifestyle modifications to elimate some medications is important to you (change talk) and Importance Scale (1-10) 5 Confidence Scale (1-10) 5 Change Talk Expressed by the Patient: Reasons to change Need to change Committment [...] reinforcing change plan / affirming steps taken Minimal progress - PREPARATION (Decided to change - considering how); Intervened by negotiating a change plan and determining options / strategies for behavior change, identifying triggers, exploring social supports, and working towards setting a date to begin behavior change New Objective established this session - PREPARATION (Decided to change - considering how); Intervened by negotiating a change plan and determining options / strategies for behavior change, identifyingtriggers, exploring social supports, and working towards setting a date to begin behavior change HC Goal Categories GOAL: Self-management Support: 0 (Follow recommended carbohydrate intake 4-5x a week) GOAL: Continuity: 0 (Go back into [employer] and do a lesson 1x a day ) Plan: (Homework, other): Patient was encouraged to continue using [employer] to seek condition-related information and education, as well as schedule a follow up appointment with the Health Casing Crew Pusher in 3 weeks Patient has set self-identified goals and will monitor progress until the next appointment. GOALS: Patient will work on the following goals until our next meeting November 29 - m: 1) When shopping don't buy treats/snacks 80% of time 2) Get rid of cookies and treats that are currently in the house by 11/09. 3) Continue exercise 5-6x a week 4) Follow recommended carbohydrate intake 4-5x a week 5) Go back into [employer] and do a lesson 1x a day = 7 lessons a week Leslee Godoy Health Casing Crew Pusher 11/08/2013 12:07 PM L COORDINATOR documented in this encounter Plan of Treatment Not on filedocumented as of this encounter Visit Diagnoses Diagnosis Type 2 diabetes, HbA1C goal < 8% (H) - P rimary Type II or unspecified type diabetes vijaya litus without mention of complication, not stated as uncontrolled documented in this encounter Care Teams Director Of Instrumental Music Relationship Specialty Start Date End Date Andrey Tamez MD PCP - General 03/26/09 Andrey Tamez MD PCP - Assigned PCP 09/11/12 11/08/18 [address] [place], [place] [address] Andrey Tamez MD Assigned PCP 09/11/12 09/07/20 [address] [place], [place] [address] documented as of this encounter
--- OUTSIDE RECORDS SUMMARY | 2022-07-09 12:40 | XMS_ITS | Encounter Summary ---
:1945 Author Organization [place] Address [address] [place] [address] Care Team Providers Name Role Phone Andrey Tamez MD Primary Care Provider Reason for Visit Reason Comments Physical Encounter Details Date Type Department Care Team Description 06/10/2010 Office Visit [facility] Andrey Tamez MD Routine general medical examination at a health care facility (Primary Dx); [facility] [place] [address] Other and unspecified hyperl ipidemia; [address] CAD (coronary artery disease); [place], [place] TIA (transient ischaemic att ack); [place] [address] DIABETES UNCOMPL ADULT-TYPE II; [id number] Erectile dysfunction [phone] Social History Tobacco Use Types Packs/Day Years Used Date Smoking Tobacco: Former Cigarettes 0.5 16 Quit : 09/06/1978 Alcohol Use Standard Drinks/Week Comments Yes 10 (1 standard drink = 0.6 oz pure alcoh ol) A drink every 1-2 weeks. 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 Please set up a routine appointment to see me again in six months, just to keep an eye on the diabetes. documented in this encounter Progress Notes Andrey Tamez - 06/10/2010 9:19 AM CDT Rodolfo Quevedo presents for a Welcome to Medicare Physical. We reviewed his significant past medical, surgical, family and social histories. Reviewed risk factors for depression. No problems with recent anhedonia or depressed mood. Review of functional ability and level of safety: Normal timed Get up and go test. No home safety concerns upon review. Hearing and vision appears normal. Snellen's chart exam shows 20/20 vision. Hears fingers rubbing together several cm from either ear. Past medical, family and social histories as well as medications reviewed and updated as needed. REVIEW OF SYSTEMS are as listed above or negative for the following: Constitutional, HEENT, respiratory, cardiovascular, gastrointestinal, genitourinary, musculoskeletal, dermatologic, hematologic, endocrine, psychiatric, and neurologic systems. OBJECTIVE: Well-appearing older male in no distress. BP 118/70 Pulse 60 Temp(Src) 97.6 ??F (36.4 ??C) (Oral) Ht 5' 10 (1.778 m) Wt 180 lb (81.647 kg) Eyes are normal. PERRLA, corneas and conjunctivae normal. Ears: TM's and canals normal bilaterally. Neck: supple, no adenopathy, thyromegaly or masses. Chest: Clear to auscultation and percussion. Cardiac: Normal to precordial auscultation. No jugular venous distention. Abdomen: soft without tenderness, guarding, mass or organomegaly. Rectal: Normal digital exam, prostate normal in contour without nodules or tenderness. Extremities: Lower extremities normal to inspection and palpation. 12-Lead EKG: Reviewed. Sinus bradycardia. Anterior T-wave flattening/inversion. No other significantST-T wave abnormalities or acute ischemic changes. ASSESSMENT/PLAN: V70.0 Routine general medical examination at a health care facility (primary encounter diagnosis) Comment: Patient requests a Welcome to Medicare Physical. Plan: ELECTROCARDIOGRAM, COMP W/READ, CHEST X-RAY 2 VW, A.M.A. COMPREHENSIVE MET.PANEL, PROSTATE SPEC ANTIGEN,SCREEN, CBC WITH PLATELETS, TSH W/FREE T4 REFLEX, HEMOGLOBIN A1C 272.4 Other and unspecified hyperlipidemia Comment: Update lipids. Plan: ezetimibe-simvastatin (VYTORIN) 10-20 MG per tablet, A.M.A. COMPREHENSIVE MET.PANEL, CBC WITH PLATELETS, TSH W/FREE T4 REFLEX, LIPID PANEL, REFLEX TO DIRECT LDL, HEMOGLOBIN A1C 414.00AE CAD (coronary artery disease) Comment: Continue current meds. Plan: ezetimibe-simvastatin (VYTORIN) 10-20 MG per tablet, metoprolol (LOPRESSOR) 25 MG tablet 435.9AN TIA (transient ischaemic attack) Comment: Continue current meds. Plan: clopidogrel (PLAVIX) 75 MG tablet, ramipril (ALTACE) 10 MG capsule, ramipril (ALTACE) 10 MG capsule 250.00 DIABETES UNCOMPL ADULT-TYPE II Comment: Check A1c. Plan: ELECTROCARDIOGRAM, COMP W/READ, CHEST X-RAY 2 VW, A.M.A. COMPREHENSIVE MET.PANEL, PROSTATE SPEC ANTIGEN,SCREEN, CBC WITH PLATELETS, TSH W/FREE T4 REFLEX, LIPID PANEL, REFLEX TO DIRECT LDL, HEMOGLOBIN A1C 607.84D Erectile dysfunction Comment: Refill Viagra. Plan: sildenafil (VIAGRA) 100 MG tablet Follow-up with me in six months, call or schedule a follow-up appointment sooner prn if any problems. Connie Jiang - 06/10/2010 8:48 AM CDT CC: Rodolfo Quevedo is an 64 year old male who presents for preventative health visit. HPI: Besides routine health maintenance, Med questions. Healthy Habits: Do you get at least three servings of dairy daily (milk, cheese, yogurt, etc.)? yes Outside of work or daily activities, how many days per week do you exercise for 30 minutes or longer? 4 Have you had an eye exam in the past two years? no Do you see a dentist twice per year? yes Staff Signature GAURAV Mg PHQ-2 Over the last two weeks- Have you been bothered by little interest or pleasure in doing things? No Over the last two weeks- Have you been feeling down, depressed, or hopeless? No Abuse: Current or Past(Physical, Sexual or Emotional)- No Do you feel safe in your environment - Yes History Substance Use Topics ??? Tobacco Use: Quit -- 0.5 packs/day for 16 years Quit date: 09/06/1978 ??? Alcohol Use: 6.0 oz/week Alcohol Use: Rare Reviewed orders with patient. Reviewed health maintenance and updated orders accordingly - Yes Staff Signature GAURAV Mg documented in this encounter Nursing Notes 06/10/2010 8:30 AM CDT >> CONNIE Hermosillo Jun 10, 2010 1:45 PM Right Eye20/20 Left Eye20/15 Both Eyes 20/15. GAURAV Mg >> CONNIE Hermosillo Jun 10, 2010 8:50 AM Patient presents with: Physical Initial BP 118/70 Pulse 60 Temp(Src) 97.6 ??F (36.4 ??C) (Oral) Ht 5' 10 (1.778 m) Wt 180 lb (81.647 kg) Estimated Body mass index is 25.83 kg/(m^2) as calculated from the following: Height as of this encounter: 5' 10(1.778 m). Weight as of this encounter: 180 lb(81.647 kg).. BP completed using cuff size: large No results found for this or any previous visit.] Last colonoscopy, men and women age 50 and older every ten years (when and where): Last flex sig, men and women age 50 and older every five years (when and where): Gannon PSA (NG/ML) Date Value Low High Status 10/28/2000 1.5 0.0 4.0 Final PSA (ug/L) Date Value Low High Status 03/13/2009 1.66 0 4 Final PSA recommended yearly if pt is over 50 Immunization Status Reviewed: up to date and documented If studies done outside of [facility], have pt sign SARAH. Pend orders for studies not done. GAURAV Mg documented in this encounter Plan of Treatment Not on filedocumented as of this encounter Procedures Procedure Name Priority Date/Time Associated Diagnosis Comme nts HC CHEST TWO VIEWS, Routine 06/10/2010 10:01 Routine general R esults for this FRONT/LAT AM CDT medical examination at [facility] are in a health care fa cility the results DIABETES UNCOMPL section. ADULT-TYPE II HCL LIPID PANEL, Routine 06/10/2010 9:34 Other and unspecified Results for this REFLEX TO DIRECT LDL AM CDT hyperlipide johan procedure are in DIABETES UNCOMPL the results ADULT-TYPE II section. CL AFF CBC WITH Routine 06/10/2010 9:34 Routine general Result s for this PLATELETS AM CDT medical examination at [facility] are in a health care fa cility the results DIABETES UNCOMPL section. ADULT-TYPE II Other and unspecified hyperlipidemia HCL PROSTATE SPEC Routine 06/10/2010 9:34 Routine general Resu lts for this ANTIGEN,SCREEN AM CDT medical examination at [facility] are in a health care fa cility the results DIABETES UNCOMPL section. ADULT-TYPE II HCL COMPREHENSIVE Routine 06/10/2010 9:34 Routine general Resu lts for this METABOLIC PANEL AM CDT medical examination at [facility] are in a health care fa cility the results DIABETES UNCOMPL section. ADULT-TYPE II Other and unspecified hyperlipidemia HCL TSH W/FREE T4 Routine 06/10/2010 9:34 Routine general Resu lts for this REFLEX AM CDT medical examination at [facility] are in a health care fa cility the results DIABETES UNCOMPL section. ADULT-TYPE II Other and unspecified hyperlipidemia HCL GLYCATED Routine 06/10/2010 9:34 DIABETES UNCOMPL Results for this HEMOGLOBIN AM CDT ADULT-TYPE II procedure are in Routine general the results medical examination at [facility] on. a health care fa cility Other and unspecified hyperlipidemia ZZC Routine 06/10/2010 Routine general Results for this ELECTROCARDIOGRAM, medical examination at procedure are in COMP W/READ a health care fa cility the results DIABETES UNCOMPL section. ADULT-TYPE II documented in this encounter Results CHEST X-RAY 2 VW (06/10/2010 10:01 AM CDT) Anatomical Region Laterality Modality Other Specimen (Source) Anatomical Collection Method Collection Time Re ceived Time Location / / Volume Laterality 06/10/2010 10:01 AM CDT Impressions 06/10/2010 2:13 PM CDT CHEST TWO VIEW* Jun 10, 2010 10:01:00 AM HISTORY: ??ROUTINE GENERAL MEDICAL EXAMI NATION AT A HEALTH CARE FACILITY,DM W/O COMPLICATION TYPE II, FINDINGS: Negative. Andrey Tamez MD GENERAL IMAGING (ABNORMAL) HEMOGLOBIN A1C (06/10/2010 9:34 AM CDT) athologist Signature Hemoglobin A1C 8.0 (H) 4.3 - 6.0 [facility] Specimen Anatomical Collection Method Collection Time Receive d Time (Source) Location / / Volume Laterality 06/10/2010 9:34 AM 0 9:39 CDT AM CDT Andrey Tamez MD LABORATORY Performing Organization Address City/State/ZIP Code Phon e Number [facility] [address] [place], [place] [address] [address] [facility] (ABNORMAL) LIPID PANEL, REFLEX TO DIRECT LDL (06/10/2010 9:34 AM CDT) athologist Signature Cholesterol 134 0 - 200 [place] mg/dL CLINIC LAB Comment: LDL Cholesterol is the primary guide to therapy. The NCEP recommends further evaluation of: patients with cholesterol <200 mg/dL if additional risk factors are present, cholesterol >240 mg/dL, triglycerides >150 mg/dL, or HDL <40 mg/dL. Triglycerides 112 0 - 150 mg/dL [place] [facility] HDL Cholesterol 37 (L) 40 - 110 mg/dL [facility] LDL Cholesterol Calculated 75 0 - 129 mg/dL [facility] Comment: LDL Cholesterol is the primary guide to therapy: LDL-cholesterol goal in high risk patients is <100 mg/dL and in very high risk patients is <70 mg/dL. VLDL-Cholesterol 22 0 - 30 mg/dL [facility] Cholesterol/HDL Ratio 3.6 0.0 - 5.0 [facility] Specimen Anatomical Collection Method Collection Time Receive d Time (Source) Location / / Volume Laterality 06/10/2010 9:34 AM 0 9:39 CDT AM CDT Andrey Tamez MD LABORATORY Performing Organization Address City/[facility]/ZIP Code Phon e Number [facility] [address] [place] [address] [facility] TSH W/FREE T4 REFLEX (06/10/2010 9:34 AM CDT) athologist Signature TSH 0.55 0.4 - 5.0 [facility] mU/L [facility] Specimen Anatomical Collection Method Collection Time Receive d Time (Source) Location / / Volume Laterality 06/10/2010 9:34 AM 0 9:39 CDT AM CDT Andrey Tamez MD LABORATORY Performing Organization Address City/State/ZIP Code Phon e Number [facility] [address] [place] [address] [facility] CBC WITH PLATELETS (06/10/2010 9:34 AM CDT) athologist Signature WBC 6.5 4.0 - 11.0 [place] 10e9/L [facility] RBC Count 4.78 4.4 - 5.9 [place] 10e12/L [facility] Hemoglobin 15.7 13.3 - [facility] 17.7 g/dL [facility] Hematocrit 47.0 40.0 - [facility] 53.0 % [facility] MCV 98 78 - 100 [place] fl [facility] MCH 32.8 26.5 - [facility] 33.0 pg [facility] MCHC 33.4 31.5 - [place] 36.5 g/dL [facility] RDW 12.0 10.0 - [facility] 15.0 % [facility] Platelet Count 193 150 - 450 [place] 10e9/L [facility] Specimen Anatomical Collection Method Collection Time Receive d Time (Source) Location / / Volume Laterality 06/10/2010 9:34 AM 0 9:39 CDT AM CDT Andrey Tamez MD LABORATORY Performing Organization Address City/State/ZIP Code Phon e Number [facility] [address] [place], [place] [address] [address] [facility] PROSTATE SPEC ANTIGEN,SCREEN (06/10/2010 9:34 AM CDT) athologist Signature PSA 1.96 0 - 4 ug/L [facility] Specimen Anatomical Collection Method Collection Time Receive d Time (Source) Location / / Volume Laterality 06/10/2010 9:34 AM 0 9:39 CDT AM CDT Andrey Tamez MD LABORATORY Performing Organization Address City/[facility]/ZIP Code Phon e Number [facility] [address] [place] [address] [facility] (ABNORMAL) A.M.A. COMPREHENSIVE MET.PANEL (06/10/2010 9:34 AM CDT) athologist Signature Sodium 140 133 - 144 [place] mmol/L [facility] Potassium 4.3 3.4 - 5.3 [place] mmol/L [facility] Chloride 100 94 - 109 [place] mmol/L [facility] Carbon Dioxide 26 20 - 32 [place] mmol/L [facility] Anion Gap 14 6 - 17 [place] mmol/L [facility] Glucose 165 (H) 60 - 99 [place] mg/dL [facility] Urea Nitrogen 18 7 - 30 [place] mg/dL [facility] Creatinine 1.12 0.66 - [facility] 1.25 mg/dL [facility] Comment: New IDMS-traceable calibration beginning 01/05/08 GFR Estimate 66 >60 mL/min/1.7m2 [place] E [facility] GFR Estimate If Black 80 >60 mL/min/1.7m2 [facility] Calcium 8.9 8.5 - 10.4 mg/dL [facility] Bilirubin Total 0.8 0.2 - 1.3 mg/dL [facility] Albumin 4.1 3.3 - 4.9 g/dL [facility] Comment: Reference range changed on 05/08. Protein Total 6.7 (L) 6.8 - 8.8 g/dL [facility] Comment: As of 08, reference range reflects plasma specimen type. Alkaline Phosphatase 81 40 - 150 U/L [facility] ALT 29 0 - 70 U/L [facility] AST 24 0 - 55 U/L [facility] LAB Specimen Anatomical Collection Method Collection Time Receive d Time (Source) Location / / Volume Laterality 06/10/2010 9:34 AM 0 9:39 CDT AM CDT Andrey Tamez MD LABORATORY Performing Organization Address City/State/ZIP Code Phon e Number [facility] [address] [place] [address] [facility] ELECTROCARDIOGRAM, COMP W/READ (06/10/2010) Narrative This result has an attachment that is no t available. Andrey Tamez MD EKG TECHNICAL documented in this encounter Visit Diagnoses Diagnosis Routine general medical examination at a health care facility - Primary Other and unspecified hyperlipidemia CAD (coronary artery disease) Coronary atherosclerosis of unspecified type of vessel, iqugmiut or graft TIA (transient ischaemic attack) Unspecified transient cerebral ischemia DIABETES UNCOMPL ADULT-TYPE II Type II or unspecified type diabetes vijaya litus without mention of complication, not stated as uncontrolled Erectile dysfunction Impotence of organic origin documented in this encounter Care Teams Furnace Combustion Tester Relationship Specialty Start Date End Date Andrey Tamez MD PCP - General 03/26/09 documented as of this encounter
--- OUTSIDE RECORDS SUMMARY | 2022-07-09 12:40 | XMS_ITS | Encounter Summary ---
:1945 Author Organization [place] Address [address] [place] [id number] Care Team Providers Name Role Phone Andrey Tamez MD Primary Care Provider Reason for Visit Reason Comments Pain c/o intermitten dull pain in R side chest under armpit x10 days. Hx of cold sx x1 months. On ABX. Encounter Details Date Type Department Care Team Description 09/08/2011 Office Visit [facility] Noris Llamas of [facility] [place] [facility], [address] not elsewhere [place], [place] ([place] [address] Dx) [id number] [phone] Social History Tobacco Use Types Packs/Day Years Used Date Smoking Tobacco: Former Cigarettes 0.5 16 Quit : 09/06/1978 Smokeless Tobacco: Never Alcohol Use Standard Drinks/Week Comments Yes 10 (1 standard drink = 0.6 oz pure alcoh ol) A drink every 1-2 weeks. 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 Height 177.8 cm (5' 10) 09/08/2011 7:33 AM 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 He denies a history of sweats, chills, wheezing and shortness of breath. Started Levaquin 1 week ago and cough now dry, can be harsh. R chest wall pain is dull, worse with coughing, can reproduce by pushing on area. He is concerned about pneumonia, takes care of his grandchildren He denies a history of asthma. Patient does not smoke cigarettes. OBJECTIVE: Vitals as noted by Nurse/MA above. Appearance: in no apparent distress. ENT- ENT exam normal, no neck nodes or sinus tenderness. Chest - chest clear to IPPA, no tachypnea, retractions or cyanosis and S1, S2 normal, no murmur, no gallop, rate regular. ASSESSMENT: Bronchitis with costochondriatis PLAN: Complete levaquin Symptomatic therapy suggested: push fluids, use ibuprofen, cough suppressant of choice as needed andReturn office visit if symptoms persist or worsen. Call or return to clinic prn if these symptoms worsen or fail to improve as anticipated. Noris Llamas CNP TIFICATION AND RECORDS COMMANDER documented in this encounter Nursing Notes 09/08/2011 7:30 AM CST >> JADIEL Hermosillo Sep 08, 2011 7:36 AM Patient presents with: Pain - c/o intermitten dull pain in R side chest under armpit x10 days. Hx of cold sx x1 months. OnABX. Initial BP 142/88 Pulse 56 Temp(Src) 97.9 ??F (36.6 ??C) (Oral) Resp 20 Ht 5' 10 (1.778 m) Wt 177 lb 8 oz (80.513 kg) BMI 25.47 kg/m2 Estimated Body mass index is 25.47 kg/(m^2) as calculated from the following: Height as of this encounter: 5' 10(1.778 m). Weight as of this encounter: 177 lb 8 oz(80.513 kg).. BP completed using cuff size: regular Jadiel Hammonds CMA documented in this encounter Plan of Treatment Not on filedocumented as of this encounter Visit Diagnoses Diagnosis Other diseases of respiratory system, no t elsewhere classified - Primary documented in this encounter Care Teams Tig Welder Relationship Specialty Start Date End Date Andrey Tamez MD PCP - General 03/26/09 documented as of this encounter
--- OUTSIDE RECORDS SUMMARY | 2022-07-09 12:40 | XMS_ITS | Encounter Summary ---
:1945 Author Organization [facility] Address [address] [place] [id number] Care Team Providers Name Role Phone Andrey Tamez MD Primary Care Provider Andrey Tamez MD Unavailable Andrey Tamez MD Unavailable Reason for Visit Reason Comments Health Coaching - Research Face #1 Encounter Details Date Type Department Care Team Description 06/21/2013 Allied Health/Nurse Health [facility] Coaching - Visit [facility] (Face #1) [address] [place] [phone] Social History Tobacco Use Types Packs/Day Years Used Date Smoking Tobacco: Former Cigarettes 0.5 16 Quit : 09/06/1978 Smokeless Tobacco: Never Alcohol Use Standard Drinks/Week Comments Yes 10 (1 standard drink = 0.6 oz pure alcoh ol) A drink every 1-2 weeks. 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/2020 10:26 AM [facility] documented as of this encounter Patient Instructions Patient InstructionsLeslee Godoy - 06/21/2013 11:04 AM CDT June 21, 2013 [facility] [address] [facility] [address] [phone] Health Coaching Progress Note Patient Name: Rodolfo Quevedo Date: June 21, 2013 Plan: (Homework, other): Patient was encouraged to continue using [employer] to seek condition-related information and education, as well as schedule a follow up appointment with the Health Application Processor in 4 weeks Patient has set self-identified goals and will monitor progress until the next appointment. GOALS: Patient will work on the following goals until our next meeting 10:45am on 13: 1) continue exercise daily 2) test fasting/AM blood sugar 7x week 3) make follow-up lab appointment for A1C test 4) read nutrition topics sent by assistant strength coach in [employer] 6) continue reading labels and look at carbohydrate information 5) become more aware of portion sizes daily Leslee Godoy Health Application Processor 06/21/2013 12:07 PM documented in this encounter Progress Notes Leslee Godoy - 06/21/2013 2:07 PM CDT June 21, 2013 [place] [id number] [address] [facility] [id number] Health Coaching Progress Note Patient Name: Rodolfo Quevedo Date: June 21, 2013 Session Length: 60 DATA PRM Master Survey Scores Reviewed: Yes PROMIS Total Score: Core Healthy Days Survey: Would you say that in general your health is: : Good Now thinking about your physical health, which includes physical illness and injury, for how many days during the past 30 days was your physical health not good?: 0 Now thinking about your mental health, which includes stress, depression, and problems with emotions, for how many days during the past 30 days was your mental health not good?: 10 During the past 30 days, for about how many days did poor physical or mental health keep you from doing your usual activities, such as self-care, work, or recreation?: 0 [place] Score (Last Two) 06/21/2013 Raw Score 37 Activation Score 49.9 [place] Level 2 PHQ-2 Score: Treatment Objective(s) Addressed in This Session: Target Behavior(s): diet/weight loss and disease management/lifestyle changes learn proper nutritionto help with diabetes management Current Stressors / Issues: None discussed Intervention: Motivational Interviewing SC Intervention: Expressed Empathy/Understanding, Supported Autonomy, Collaboration, Evocation, Open-ended questions, Reflections: simple and complex and Importance Scale (1-10) NA Confidence Scale (1-10) 8 Change Talk Expressed by the Patient: Desire [...] / Progress on Treatment Objective(s) / Homework: New Objective established this session - PREPARATION (Decided to change - considering how); Intervened by negotiating a change plan and determining options / strategies for behavior change, identifyingtriggers, exploring social supports, and working towards setting a date to begin behavior change HC Goal Categories GOAL: Self-management Support: 0% (become more aware of portion sizes daily ) GOAL: Bridge between Clinician and Patient: 0% (make follow-up lab appointment for A1C test) Plan: (Homework, other): Patient was encouraged to continue using [employer] to seek condition-related information and education, as well as schedule a follow up appointment with the Health Application Processor in 4 weeks Patient has set self-identified goals and will monitor progress until the next appointment. GOALS: Patient will work on the following goals until our next meeting 10:45am on : 1) continue exercise daily 2) test fasting/AM blood sugar 7x week 3) make follow-up lab appointment for A1C test 4) read nutrition topics sent by assistant strength coach in [employer] 6) continue reading labels and look at carbohydrate information 5) become more aware of portion sizes daily Leslee Godoy Health Application Processor 06/21/2013 2:09 PM documented in this encounter Plan of Treatment Not on filedocumented as of this encounter Visit Diagnoses Diagnosis Type 2 diabetes, HbA1C goal < 8% (H) - P rimary Type II or unspecified type diabetes vijaya litus without mention of complication, not stated as uncontrolled documented in this encounter Care Teams Investment Recovery Technician Relationship Specialty Start Date End Date Andrey Tamez MD PCP - General 03/26/09 Andrey Tamez MD PCP - Assigned PCP 09/11/12 11/08/[address] [place] [address] Andery Tamez MD Assigned PCP 09/11/12 09/07/[address] [place] [address] documented as of this encounter
--- OUTSIDE RECORDS SUMMARY | 2022-07-09 12:40 | XMS_ITS | Encounter Summary ---
:1945 Author Organization [facility] Address [address] [place] [id number] Care Team Providers Name Role Phone Andrey Tamez MD Primary Care Provider Reason for Visit Reason Comments Dizziness started this am Encounter Details Date Type Department Care Team Description 06/20/2011 Emergency [facility] Lexa De León MD Vertigo; [facility] Emergency Dep t [facility] CVD (cerebrovascular disease ); [address] CAD (coronary artery disease) [place] [id number] [facility] [id number] [place], [place] [id number] [phone] (Wo rk) Social History Tobacco Use Types Packs/Day Years Used Date Smoking Tobacco: Former Cigarettes 0.5 16 Quit : 09/06/1978 Tobacco Cessation: Counseling Given: No Alcohol Use Standard Drinks/Week Comments Yes 10 (1 standard drink = 0.6 oz pure alcoh ol) A drink every 1-2 weeks. 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 documented as of this encounter Last Filed Vital Signs Vital Sign Reading Time Taken Comments Blood Pressure 129/70 06/20/2011 2:15 PM CDT Pulse 61 06/20/2011 1:48 PM CDT Temperature 36.8 ??C (98.2 ??F) 06/20/2011 2:15 PM CDT Respiratory Rate 18 06/20/2011 2:15 PM CDT Oxygen Saturation 98% 06/20/2011 2:15 PM CDT Inhaled Oxygen Concentration - - Weight 81.6 kg (180 lb) 06/20/2011 8:45 AM CDT Height 177.8 cm (5' 10) 06/20/2011 8:45 AM CDT Body Mass Index 25.83 06/20/2011 8:45 AM CDT documented in this encounter Discharge Instructions Discharge InstructionsLexa De León MD - 06/20/2011 2:13 PM CDT Images from the original note were not included. Home Back SP RU CH DIZZINESS [Uncertain cause] Dizziness is a common symptom sometimes described as lightheadedness or feeling like you are goingto faint. If it lasts for only a few seconds and is related to changes in position (such as getting up after lying or sitting for a long time), it is usually not a sign of anything serious. Dizziness that lasts for minutes to hours, or comes on for no apparent reason, may be a sign of a more serious problem (such as dehydration, a medicine reaction, disease of the heart or brain). Today's exam did not show an exact cause for your dizzy spell . Sometimes additional tests are required before a cause can be found. Therefore, it is important to follow up with your doctor if your symptoms continue. HOME CARE: 1) If a dizzy spell occurs and lasts more than a few seconds, lie down until it passes. If you are lying down, then you cannot hurt yourself by falling if you do faint. 2) Do not drive or operate dangerous equipment until the dizzy spells have stopped for at least 48 hours. 3) If dizzy spells occur with sudden standing, this may be a sign of mild dehydration. Drink extra fluids over the next few days. 4) If you recently started a new medicine or if you had the dose of a current medicine increased (especially blood pressure medicine), talk with the prescribing doctor about your symptoms. Dose adjustments may be needed. FOLLOW UP with your doctor for further evaluation within the next seven days, if your symptoms continue. GET PROMPT MEDICAL ATTENTION if any of the following occur: -- Worsening of your symptoms -- Fainting, headache or seizure -- Repeated vomiting -- Feeling like you or the room is spinning -- Chest, arm, neck, back or jaw pain -- Palpitations (the sense that your heart is fluttering or beating fast or hard) -- Shortness of breath -- Blood in vomit or stool (black or red color) -- Weakness of an arm or leg or one side of the face -- Difficulty with speech or vision ?? [id number] [facility], [address] [place] [address], [place] [address]. All rights reserved. This information is not intended as a substitute for professional medical care. Always follow your healthcare professional's instructions. documented in this encounter Medications at Time of Discharge Medication Sig Dispensed Refills Start Date End Date ASPIRIN NOT PRESCRIBED, by Other route 0 12/11/19 11 INTENTIONAL,Indications continuous prn. : CAD (coronary artery disease) clopidogrel (PLAVIX) 75 Take 1 tablet by 90 tablet 3 201010/13/2012 MG tabletIndications: mouth daily. TIA (transient ischaemic attack) ezetimibe-simvastatin Take 1 tablet by 90 tablet 3 06/08/20 11 03/17/2012 (VYTORIN) 10-20 MG per mouth At Bedtime. tabletIndications: Other and unspecified hyperlipidemia, CAD (coronary artery disease) meclizine (ANTIVERT) 25 Take 1 tablet by 30 tablet 0 201009/08/2011 MG tablet mouth 3 times daily as needed. METFORMIN HCL TABS 500 1 tab po bid with 64 5 200001/31/2014 MG ORIndications: Type food II or unspecified type diabetes mellitus without mention of complication, not stated as uncontrolled metoprolol (LOPRESSOR) Take 1 tablet by 180 tablet 3 011 10/13/2012 100 MG mouth 2 times daily. tabletIndications: CAD (coronary artery disease), Unspecified essential hypertension ramipril (ALTACE) 10 MG Take 1 capsule by 180 capsule 3 11/201010/13/2012 capsuleIndications: TIA mouth 2 times daily. (transient ischaemic attack) sildenafil (VIAGRA) 100 Take 1 tablet by 10 tablet 12 200909/07/2017 MG tabletIndications: mouth daily as Erectile dysfunction needed for erectile dysfunction. documented as of this encounter ED Notes Lázaro Francis - 06/20/2011 2:10 PM CDT Ambulation trial, patient walk around the ED, gait steady. Pt denies any dizziness. Pain 0/10. MD notified. Gris Baker RN - 06/20/2011 11:34 AM CDT Labs drawn with IV insertion and held Gris Baker RN - 06/20/2011 11:00 AM CDT Labs drawn with IV insertion and sent Lázaro Francis - 06/20/2011 10:25 AM CDT Patient up to bathroom. States have little diareah. RN notified. Lexa De León MD - 06/20/2011 10:07 AM CDT History Chief Complaint: Dizziness HPI Rodolfo Quevedo is a 65 year old male with a history of stroke and who presents for evaluation of dizziness. According to the patient, yesterday evening upon walking to his bedroom, he felt slight dizziness and loss of balance. Again, upon waking up this morning, 3 hours ago, he felt a sudden onset of dizziness, like the room was spinning, in addition to fever. He notes the sensation increases upon standing and general movement, but reduces upon lying or sitting. In addition, he reports increased anxiety for the past 1-2 days due to concerns about work and travel by flight. Upon presentation to theED, he reports unresolved symptoms. He denies recent fall, injury to the head or extremities. He denies numbness or weakness of the arms and legs, chest or abdominal pain. He also denies shortness of breath, headache, vision changes, nausea, or vomiting. Allergies: NKDA Medications: Altace, Lopressor, Vytorin, Plavix, Aspirin, Viagra Problem List: Unspecified essential hypertension (02/19/2011); Type 2 Diabetes, HBA1C Goal <8% (07/06/2010); Hyperlipidemia LDL Goal <100 (07/06/2010); Coronary Artery Disease Past Medical History: Other specified disorders of pancreatic internal secretion, DM w/o complication type II, Other and unspecified hyperlipidemia, CAD, TIA Past Surgical History: Hc Laparoscopy, surgical; cholecystectomy (Dr. Pedraza) (05/2000); Hc Remove Tonsils/adenoids, 12+ y/o (T and A 12+ y.o.) (Age 16); C Reconstruction Jaw, Part-sub Implnt (1970); C Nonspecific Procedure (Skin Ca removed from forehead (01/2010) Family/Social History: Heart (Mother age 74, had kidney failure, heart/liver problems); Respiratory (Father age 86, had emphysema); Cancer (Father had bladder removal with cystoscopy); GI (Mother: gallbladder); Diabetes (Mother had type two diabetes) Marital Status: [2] Social History: Smoking status (former smoker .5 packs daily for 16 years; quit 09/06/1978); Smokeless tobacco (not on file); Alcohol use (6.0 oz./week) Review of Systems Constitutional: Positive for fever. Eyes: Negative for photophobia and visual disturbance. Respiratory: Negative for shortness of breath. Cardiovascular: Negative for chest pain. Gastrointestinal: Negative for nausea, vomiting and abdominal pain. Neurological: Positive for dizziness. Negative for weakness, numbness and headaches. Psychiatric/Behavioral: The patient is nervous/anxious. Physical Exam First Vitals: BP: 205/97 mmHg Pulse: 62 Heart Rate: 60 Temp: 97.6 ??F (36.4 ??C) Resp: 15 Height: 177.8 cm (5' 10) Weight: 81.647 kg (180 lb) SpO2: 97 % Physical Exam Constitutional: He is oriented to person, place, and time. No distress. HENT: Head: Atraumatic. Right Ear: External ear normal. Left Ear: External ear normal. Nose: Nose normal. Mouth/Throat: Oropharynx is clear and moist. Eyes: Conjunctivae and EOM are normal. Pupils are equal, round, and reactive to light. Right eye exhibits no discharge. Left eye exhibits no discharge. No scleral icterus. Neck: Normal range of motion. Neck supple. No thyromegaly present. Cardiovascular: Normal rate, regular rhythm, normal heart sounds and intact distal pulses. No murmur heard. Pulmonary/Chest: Effort normal and breath sounds normal. No stridor. No respiratory distress. He hasno wheezes. He has no rales. He exhibits no tenderness. Abdominal: Soft. Bowel sounds are normal. He exhibits no distension and no mass. No tenderness. He has no rebound and no guarding. Musculoskeletal: Normal range of motion. He exhibits no edema. Lymphadenopathy: He has no cervical adenopathy. Neurological: He is alert and oriented to person, place, and time. No cranial nerve deficit. Coordination normal. Romberg's test unsteady Skin: Skin is warm and dry. He is not diaphoretic. Psychiatric: He has a normal mood and affect. His behavior is normal. Judgment and thought content normal. Emergency Department Course Imaging: MRI Brain w and w/o Contrast: 1. Interval evolution of previously described right frontal infarct. 2. Diffuse cerebral volume loss and cerebral white matter changes consistent with sequela of chronic small vessel ischemic disease. Noevidence for acute intracranial pathology 3. Normal cata[place]ba of Garcia MRA. 4. Stable, normal neck MRA. Per Dr. Osorio of radiology. 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 2. Diffuse cerebral volume loss and cerebral white matter changes consistent with sequela of chronic small vessel ischemic disease. No evidence for acute intracranialpathology. 3. Normal cata[place] of Garcia MRA. 4. Stable, normal neck MRA. Per Dr. Osorio of radiology. MRI Angiogram Neck w and w/o contrast: 1. Interval evolution of previously described right frontal infarct. 2. Diffuse cerebral volume loss and cerebral white matter changes consistent with sequela of chronic small vessel ischemic disease. No evidence for acute intracranial pathology. 3. Normal circleof Garcia MRA. 4. Stable, normal neck MRA. Per Dr. Osorio of radiology. Laboratory: CBC: MCH 33.1 (high) o/w WNL BMP: Anion gap 5 (low), Glucose 178 (high) o/w WNL Glucose by meter: 171 (high) ED Interventions: Lidocaine, 2% 20 ml Urethral (Once) Sodium chloride 3 ml IV Inversion Sodium chloride 3 ml IV Inversion NaCL 0.9% 1,000 ml IV Inversion Meclizine, 25 mg PO Lorazepam, 1 mg PO Gadobutrol, 10 ml IV Injection ED Course: A peripheral IV was established. The patient was placed on continuous pulse oximetry, cardiac monitoring, and oxygen nasal cannula. Patient received wallow ability screen, and one-time san catheter. Patient was placed on bedrest while in the ED. I reviewed the patient's medical record. 10:07 a.m. The patient was seen and examined by myself. I discussed the course of care with the patient including laboratory and diagnostic studies. He understands and is agreeable to the plan. Recheck. The patient is resting comfortably and is in no pain or distress after the above interventions. I discussed with the patient the results of the above procedures and he will be discharged to home. All questions were answered prior to discharge, and the patient was told to follow up with primary care doctor per discharge instructions. Reasons for return as well as follow up were reviewed with the patient. He understands and agrees to this plan. Impression & Plan Medical Decision Making: This patient has had a stroke in the past. He has had cardiovascular disease as well, and he presents here today due to some disequilibrium changes. Concern was for vertebrobasilar insufficiency or possibly a cerebellar infarct. He ruled out for these things with MRI, MR Angiogram. He is doing well after Meclizine. He is able to ambulate independently without problems. I am going to discharge him home and have him follow up with his PMD on Wednesday, that is assuming he does well throughout the weekend. Diagnosis: 1.) Acute Disequilibrium suggestive for peripheral vertigo Plan: Meclizine as directed. Follow up Wednesday with PMD. Return in the interim for new or worsening symptoms. I, Savita Weir, am serving as a scribe at 10:07 AM on 06/20/2011 to document services personally performed by Dr. De León based on my observations and the provider's statements to me. Jim Serrano 06/20/2011 [facility] EMERGENCY DEPARTMENT Lexa De León MD 06/22/11 [id number] Lázaro Francis - 06/20/2011 10:00 AM CDT Assist patient up to bathroom. Urine sample obtained. Held in the room. Lázaro Francis - 06/20/2011 9:10 AM CDT Patient to room and into a gown. Monitors applied, Bi-lateral BPs complete. EKG complete. RN notified Merrick Pryor, AVA - 06/20/2011 8:48 AM CDT Alert and oriented.abc's intact documented in this encounter Plan of Treatment Not on filedocumented as of this encounter Procedures Procedure Name Priority Date/Time Associated Comments Diagnosis MRA NECK (CAROTIDS) STAT 06/20/2011 12:50 Resu lts for this W/O & W CONTRAST PM CDT procedure a re in the results section. MR BRAIN W/O & W STAT 06/20/2011 12:47 Results for this CONTRAST PM CDT procedure are i n the results section. MRA BRAIN (OTOE-[place] OF STAT 06/20/2011 12:17 Res ults for this GARCIA) W/O CONTRAST PM CDT procedu re are in the results section. GLUCOSE BY METER Routine 06/20/2011 11:25 Results for this AM CDT procedure are i n the results section. CBC WITH PLATELETS & STAT 06/20/2011 11:00 Res ults for this DIFFERENTIAL AM CDT procedure are i n the results section. BASIC METABOLIC PANEL STAT 06/20/2011 11:00 Re sults for this AM CDT procedure are i n the results section. EKG 12-LEAD, TRACING STAT 06/20/2011 9:07 AM R esults for this ONLY CDT procedure are i n the results section. HIM ECG SCAN STAT 06/20/2011 documented in this encounter Results MRI Angiogram neck w & w/o contrast* (06/20/2011 12:50 PM CDT) Anatomical Region Laterality Modality Neck, SUBRAD MR NEURO, P MR NEURO Othe r Specimen (Source) Anatomical Collection Method Collection Time Re ceived Time Location / / Volume Laterality 06/20/2011 12:50 PM CDT Impressions 06/20/2011 1:14 PM CDT MRI OF THE BRAIN WITHOUT AND WITH CONTRA ST; MRA OF THE HEAD WITHOUT CONTRAST; MRA OF THE NECK WITHOUT AND WITH CONTRAS T ??Jun 20, 2011 12:17:00 PM HISTORY: ??Stroke,Evaluate for aneurysm, COMPARISON: Brain MRI, catawba of Garcia MRA and neck MRA 04/12/2008. TECHNIQUE: Brain: Axial diffusion-weighted with ADC map, T2-weighted with fat saturation, T1-weighted and turboFLAIR a nd coronal T1-weighted images of the brain were obtained without intra venous contrast. ??Following intravenous administration of gadolinium ( 20 mL Magnevist) , axial turboFLAIR and coronal T1-weighted image s of the brain were obtained. MRA: 3D [id number] MR angiography of the major arteries at the base of the brain was performed without contrast. ??2D wxux-ij-bsoggy MRA without contrast with superior and i nferior saturation bands and 3D T1-weighted postgadolinium MRA of the neck/cervical vessels were also obtained. MIP reconstruction of all MR angiographic data was performed. FINDINGS: Brain: There has been interval evolution of the previously described right frontal infarct into an area of en cephalomalacia. There is moderate diffuse cerebral volume loss. T here are a few scattered focal areas of abnormal T2 signal hyperintensi ty in the cerebral white matter bilaterally that are consistent w ith sequela of chronic small vessel ischemic disease. The ventricles and basal cisterns are wi thin normal limits in configuration ??given the degree of cere bral volume loss. ??There is no midline shift. ??There are no extra-axia l fluid collections. ??There is no evidence for recent stroke or acute i ntracranial hemorrhage. ??There is no abnormal contrast enhancement in t he brain or its coverings. There is no sinusitis or mastoiditis. Head MRA: The bilateral distal internal carotid, basilar, bilateral anterior cerebral, bilateral middle cere bral and bilateral posterior cerebral arteries are patent and unremar kable with no evidence for cerebral artery stenosis or aneurysm. Th e anterior communicating artery is patent. The posterior communic ating arteries bilaterally are patent and unremarkable. Neck MRA: The internal carotid arteries bilaterally are patent without stenosis. The vertebral arteries bilater ally are patent without stenosis and demonstrate antegrade flow. IMPRESSION: 1. Interval evolution of previously desc ribed right frontal infarct. 2. Diffuse cerebral volume loss and cere bral white matter changes consistent with sequela of chronic small vessel ischemic disease. No evidence for acute intracranial patholog y. 3. Normal cata[place] of Garcia MRA. 4. Stable, normal neck MRA. Lexa De León MD IMG MRI ORDERABLES MRI Brain w & w/o contrast (06/20/2011 12:47 PM CDT) Anatomical Region Laterality Modality Head, SUBRAD MR NEURO, UMP MR NEURO Othe r Specimen (Source) Anatomical Collection Method Collection Time Re ceived Time Location / / Volume Laterality 06/20/2011 12:47 PM CDT Impressions 06/20/2011 1:14 PM CDT MRI OF THE BRAIN WITHOUT AND WITH CONTRA ST; MRA OF THE HEAD WITHOUT CONTRAST; MRA OF THE NECK WITHOUT AND WITH CONTRAS T ??Jun 20, 2011 12:17:00 PM HISTORY: ??Stroke,Evaluate for aneurysm, COMPARISON: Brain MRI, cata[place] of Garcia MRA and neck MRA 04/12/2008. TECHNIQUE: Brain: Axial diffusion-weighted with ADC map, T2-weighted with fat saturation, T1-weighted and turboFLAIR a nd coronal T1-weighted images of the brain were obtained without intra venous contrast. ??Following intravenous administration of gadolinium ( 20 mL Magnevist) , axial turboFLAIR and coronal T1-weighted image s of the brain were obtained. MRA: 3D hopl-et-jytrsk MR angiography of the major arteries at the base of the brain was performed without contrast. ??2D mhpt-ft-bxnrem MRA without contrast with superior and i nferior saturation bands and 3D T1-weighted postgadolinium MRA of the neck/cervical vessels were also obtained. MIP reconstruction of all MR angiographic data was performed. FINDINGS: Brain: There has been interval evolution of the previously described right frontal infarct into an area of en cephalomalacia. There is moderate diffuse cerebral volume loss. T here are a few scattered focal areas of abnormal T2 signal hyperintensi ty in the cerebral white matter bilaterally that are consistent w ith sequela of chronic small vessel ischemic disease. The ventricles and basal cisterns are wi thin normal limits in configuration ??given the degree of cere bral volume loss. ??There is no midline shift. ??There are no extra-axia l fluid collections. ??There is no evidence for recent stroke or acute i ntracranial hemorrhage. ??There is no abnormal contrast enhancement in t he brain or its coverings. There is no sinusitis or mastoiditis. Head MRA: The bilateral distal internal carotid, basilar, bilateral anterior cerebral, bilateral middle cere bral and bilateral posterior cerebral arteries are patent and unremar kable with no evidence for cerebral artery stenosis or aneurysm. Th e anterior communicating artery is patent. The posterior communic ating arteries bilaterally are patent and unremarkable. Neck MRA: The internal carotid arteries bilaterally are patent without stenosis. The vertebral arteries bilater ally are patent without stenosis and demonstrate antegrade flow. IMPRESSION: 1. Interval evolution of previously desc ribed right frontal infarct. 2. Diffuse cerebral volume loss and cere bral white matter changes consistent with sequela of chronic small vessel ischemic disease. No evidence for acute intracranial patholog y. 3. Normal cata[place] of Garcia MRA. 4. Stable, normal neck MRA. Lexa De León MD IMG MRI ORDERABLES MRI Angiogram head w/o contrast* (06/20/2011 12:17 PM CDT) Anatomical Region Laterality Modality Head, SUBRAD MR NEURO, P MR NEURO Othe r Specimen (Source) Anatomical Collection Method Collection Time Re ceived Time Location / / Volume Laterality 06/20/2011 12:17 PM CDT Impressions 06/20/2011 1:14 PM CDT MRI OF THE BRAIN WITHOUT AND WITH CONTRA ST; MRA OF THE HEAD WITHOUT CONTRAST; MRA OF THE NECK WITHOUT AND WITH CONTRAS T ??Jun 20, 2011 12:17:00 PM HISTORY: ??Stroke,Evaluate for aneurysm, COMPARISON: Brain MRI, cata[place] of Garcia MRA and neck MRA 04/12/2008. TECHNIQUE: Brain: Axial diffusion-weighted with ADC map, T2-weighted with fat saturation, T1-weighted and turboFLAIR a nd coronal T1-weighted images of the brain were obtained without intra venous contrast. ??Following intravenous administration of gadolinium ( 20 mL Magnevist) , axial turboFLAIR and coronal T1-weighted image s of the brain were obtained. MRA: 3D spde-xl-fuhenl MR angiography of the major arteries at the base of the brain was performed without contrast. ??2D bzxm-xh-eomski MRA without contrast with superior and i nferior saturation bands and 3D T1-weighted postgadolinium MRA of the neck/cervical vessels were also obtained. MIP reconstruction of all MR angiographic data was performed. FINDINGS: Brain: There has been interval evolution of the previously described right frontal infarct into an area of en cephalomalacia. There is moderate diffuse cerebral volume loss. T here are a few scattered focal areas of abnormal T2 signal hyperintensi ty in the cerebral white matter bilaterally that are consistent w ith sequela of chronic small vessel ischemic disease. The ventricles and basal cisterns are wi thin normal limits in configuration ??given the degree of cere bral volume loss. ??There is no midline shift. ??There are no extra-axia l fluid collections. ??There is no evidence for recent stroke or acute i ntracranial hemorrhage. ??There is no abnormal contrast enhancement in t he brain or its coverings. There is no sinusitis or mastoiditis. Head MRA: The bilateral distal internal carotid, basilar, bilateral anterior cerebral, bilateral middle cere bral and bilateral posterior cerebral arteries are patent and unremar kable with no evidence for cerebral artery stenosis or aneurysm. Th e anterior communicating artery is patent. The posterior communic ating arteries bilaterally are patent and unremarkable. Neck MRA: The internal carotid arteries bilaterally are patent without stenosis. The vertebral arteries bilater ally are patent without stenosis and demonstrate antegrade flow. IMPRESSION: 1. Interval evolution of previously desc ribed right frontal infarct. 2. Diffuse cerebral volume loss and cere bral white matter changes consistent with sequela of chronic small vessel ischemic disease. No evidence for acute intracranial patholog y. 3. Normal cata[place] of Garcia MRA. 4. Stable, normal neck MRA. Lexa De León MD IMG MRI ORDERABLES (ABNORMAL) Glucose by meter (06/20/2011 11:25 AM CDT) P athologist Signature Glucose 171 (H) 60 - 99 [place] mg/dL [facility] Specimen Anatomical Collection Method Collection Time Receive d Time (Source) Location / / Volume Laterality 06/20/2011 11:25 06/20/2011 AM CDT 11:30 AM CDT Lexa De León MD [facility] POCT Performing Organization Address City/State/ZIP Code Phon e Number M [facility] [address] [place], [place] [address] [facility] (ABNORMAL) Basic metabolic panel (06/20/2011 11:00 AM CDT) P athologist Signature Sodium 140 133 - 144 [place] mmol/L [facility] Potassium 5.3 3.4 - 5.3 [place] mmol/L [facility] Chloride 103 94 - 109 [place] mmol/L [facility] Carbon Dioxide 32 20 - 32 [place] mmol/L [facility] Anion Gap 5 (L) 6 - 17 [place] mmol/L [facility] Glucose 178 (H) 60 - 99 [place] mg/dL [facility] Urea Nitrogen 18 7 - 30 [place] mg/dL [facility] Creatinine 0.95 0.66 - [place] 1.25 mg/dL [facility] GFR Estimate 80 >60 [place] mL/min/1.[address] LAB GFR Estimate If >90 >60 [place] Black mL/min/1.[address] LAB Calcium 9.1 8.5 - 10.4 [place] mg/dL [facility] Specimen Anatomical Collection Method Collection Time Receive d Time (Source) Location / / Volume Laterality Blood specimen 06/20/2011 11:00 1 (specimen) AM CDT 11:18 AM CDT Lexa De León MD LAB - BLOOD ORDERABLES Performing Organization Address City/State/ZIP Code Phon e Number [facility] [address] [place], [place] [address] [facility] (ABNORMAL) CBC with platelets differential (06/20/2011 11:00 AM CDT) Patholo gist Method Time Signature WBC 6.7 4.0 - [place] 11.0 [facility] 10e9/L [facility] RBC Count 4.84 4.4 - 5.9 [place] 10e12/L [facility] Hemoglobin 16.0 13.3 - [place] 17.7 g/dL [facility] Hematocrit 47.2 40.0 - [place] 53.0 % [facility] MCV 98 78 - 100 [facility] MCH 33.1 (H) 26.5 - [facility] 33.0 pg [facility] MCHC 33.9 31.5 - [facility] 36.5 g/dL [facility] RDW 12.2 10.0 - [place] 15.0 % [facility] Platelet Count 182 150 - 450 [place] 10e9/L [facility] Diff Method Automated [facility] % Neutrophils 64.2 40 - 75 % [facility] % Lymphocytes 20.1 20 - 48 % [facility] % Monocytes 10.4 0 - 12 % [facility] % Eosinophils 4.7 0 - 6 % [facility] % Basophils 0.3 0 - 2 % [facility] % Immature 0.3 0 - 0.4 % [place] Granulocytes [facility] Absolute 4.3 1.6 - 8.3 [place] Neutrophil 10e9/L [facility] Absolute 1.3 0.8 - 5.3 [place] Lymphocytes [facility] Absolute 0.7 0.0 - 1.3 [place] Monocytes 10e9/L [facility] Absolute 0.3 0.0 - 0.7 [place] Eosinophils 10e9/L [facility] Absolute 0.0 0.0 - 0.2 [place] Basophils 10e9/L [facility] Abs Immature 0.0 0 - 0.03 [place] Granulocytes [address] [place] [address] LAB Specimen Anatomical Collection Method Collection Time Receive d Time (Source) Location / / Volume Laterality Blood specimen 06/20/2011 11:00 1 (specimen) AM CDT 11:18 AM CDT Lexa De León MD LAB - BLOOD ORDERABLES Performing Organization Address City/State/ZIP Code Phon e Number [facility] [address], [place] [address] [facility] EKG 12-lead, tracing only (06/20/2011 9:07 AM CDT) Component Value Ref Range Test Analysis Performed Pathologis t Method Time At Signature Ventricular Rate 60 BPM RADIOLOGY RESULTS Atrial Rate 60 BPM RADIOLOGY RESULTS NJ Interval 196 ms RADIOLOGY RESULTS QRS Duration 90 ms RADIOLOGY RESULTS QT 416 ms RADIOLOGY RESULTS QTc 416 ms RADIOLOGY RESULTS P [place] 44 degrees RADIOLOGY RESULTS R AXIS 17 degrees RADIOLOGY RESULTS T [place] 64 degrees RADIOLOGY RESULTS Interpretation Sinus rhythm RADIOLOGY ECG RESULTS Interpretation Low voltage QRS RADIOLOGY ECG RESULTS Interpretation T wave RADIOLOGY ECG abnormality, RESULTS consider anterior ischemia Interpretation Abnormal ECG RADIOLOGY ECG RESULTS Interpretation Unconfirmed report - interpr etation of this ECG is computer generated - see RADIOLOGY ECG medical record for final interpretation RESULTS Specimen (Source) Anatomical Collection Method Collection Time Re ceived Time Location / / Volume Laterality 06/20/2011 9:07 AM CDT Lexa De León MD ECG ORDERABLES Performing Organization Address City/State/ZIP Code Phon e Number RADIOLOGY RESULTS EKG - HIM ECG Scan (06/20/2011) Narrative This result has an attachment that is no t available. Lexa De León MD ECG ORDERABLES documented in this encounter Visit Diagnoses Diagnosis Vertigo Dizziness and giddiness CVD (cerebrovascular disease) Cerebrovascular disease, unspecified CAD (coronary artery disease) Coronary atherosclerosis of unspecified type of vessel, robinson or graft documented in this encounter Administered Medications Inactive Administered Medications - up to 3 most recent administrations Medication Order MAR Action Action Date Dose Rate Site gadobutrol (GADAVIST) 1 mmol/mL Given 06/20/2011 12:00 PM CDT 10 mmol injection 10 mmol 10 mmol (10 mL), Intravenous, ONCE, On 06/20/11 at 1200, For 1 dose lorazepam (ATIVAN) tablet 1 mg Given 06/20/2011 11:29 AM CDT 1 mg 1 mg, Oral, ONCE, On 06/20/11 at 1030, For 1 dose, Give 45 prior to MRI meclizine (ANTIVERT) tablet 25 mg Given 06/20/2011 11:28 AM CDT 25 mg 25 mg, Oral, ONCE, On 06/20/11 at 1030, For 1 dose sodium chloride 0.9 % flush 3 mL Given 06/20/2011 12:45 PM CDT 45 mLs 3 mL, Intracatheter, EVERY 8 HOURS, First dose on 06/20/11 at 1245 documented in this encounter Active and Recently Administered Medications Times are shown in CDT. Scheduled Medication Order 06/18/2011 06/19/2011 06/20/2011 gadobutrol (GADAVIST) 1 mmol/mL injection 10 mmol (COMPLETED) 1200 (Given - Provider: Shukri Bell - Comment: pt. in MRI room) 10 mL = 10 mmol, Intravenous, ONCE, 06/20/11 at 1200, For 1 dose lorazepam (ATIVAN) tablet 1 mg (COMPLETED) 1129 (Given - Provider: Gris Baker RN) 1 mg, Oral, ONCE, 06/20/11 at 1030, For 1 dose, Give 45 allen or to MRI meclizine (ANTIVERT) tablet 25 mg (COMPLETED) 1128 (Given - Provider: Gris Baker RN) 25 mg, Oral, ONCE, 06/20/11 at 1030, For 1 dose sodium chloride 0.9 % flush 3 mL (CANCELED) 1245 (Given - Provider: Shukri Bell) 3 mL, Intercatheter, EVERY 8 HOURS, First dose on 06/20/11 a t 1245 documented in this encounter Care Teams Operations Chief Relationship Specialty Start Date End Date Andrey Tamez MD PCP - General 03/26/09 documented as of this encounter
--- OUTSIDE RECORDS SUMMARY | 2022-07-09 12:40 | XMS_ITS | Encounter Summary ---
:1945 Author Organization [facility] Address [address] [place] [address] Care Team Providers Name Role Phone Andrey Tamez MD Primary Care Provider Andrey Tamez MD Unavailable Andrey Tamez MD Unavailable Reason for Visit Reason Onset Date Comments Pending Orders/need approval 03/21/2012 LAB ORDERS Encounter Details Date Type Department Care Team Description 03/21/[address] [facility] Andrey Tamez MD Pending Orders/need Clinic [facility] [address] good roval (LAB ORDERS) Laboratory [address] [place] [address] [place], [place] [phone] (Wo rk) [address] [phone] Social History Tobacco Use Types Packs/Day Years Used Date Smoking Tobacco: Former Cigarettes 0.5 16 Quit : 09/06/1978 Smokeless Tobacco: Never Alcohol Use Standard Drinks/Week Comments Yes 10 (1 standard drink = 0.6 oz pure alcoh ol) A drink every 1-2 weeks. 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 documented as of this encounter Plan of Treatment Not on filedocumented as of this encounter Visit Diagnoses Diagnosis Type 2 diabetes, HbA1C goal < 8% (H) - P rimary Type II or unspecified type diabetes vijaya litus without mention of complication, not stated as uncontrolled documented in this encounter Care Teams Director Of Valuation Relationship Specialty Start Date End Date Andrey Tamez MD PCP - General 03/26/09 Andrey Tamez MD PCP - Assigned PCP 09/11/12 11/08/18 [address] [place], [place] [id number] Andrey Tamez MD Assigned PCP 09/11/12 09/07/20 [address] [place], [place] [id number] documented as of this encounter
--- OUTSIDE RECORDS SUMMARY | 2022-07-09 12:40 | XMS_ITS | Encounter Summary ---
:1945 Author Organization [facility] Address [address] [place] [address] Care Team Providers Name Role Phone Andrey aTmez MD Primary Care Provider Reason for Visit Reason Onset Date Comments Refill Request 03/17/2012 Vytorin Encounter Details Date Type Department Care Team Description 03/17/2012 Refill [facility] Andrey Tamez MD Refill Request Clinic [place] [address] (Vytorin) 303 [facility] [address] [place], [place] [id number] [place] [address] (Wo rk) [address] [phone] Social History Tobacco Use Types Packs/Day Years Used Date Smoking Tobacco: Former Cigarettes 0.5 16 Quit : 09/06/1978 Smokeless Tobacco: Never Alcohol Use Standard Drinks/Week Comments Yes 10 (1 standard drink = 0.6 oz pure alcoh ol) A drink every 1-2 weeks. 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 Orders placed in EPIC Telephone Encounter - Bernice Choe - 03/17/2012 4:09 PM CDT Refill request from [facility] pharmacy for: Vytorin Last O/V: 09/08/11 Last Refill: 06/08/11 documented in this encounter Plan of Treatment Not on filedocumented as of this encounter Visit Diagnoses Diagnosis Other and unspecified hyperlipidemia CAD (coronary artery disease) Coronary atherosclerosis of unspecified type of vessel, tejon or graft documented in this encounter Care Teams Professional Application Designer Relationship Specialty Start Date End Date Andrey Tamez MD PCP - General 03/26/09 documented as of this encounter
--- OUTSIDE RECORDS SUMMARY | 2022-07-09 12:40 | XMS_ITS | Encounter Summary ---
:1945 Author Organization [facility] [facility] Address [address] [place] [address]. [place] [address] Care Team Providers Name Role Phone Andrey Tamez MD Primary Care Provider Andrey Tamez MD Unavailable Andrey Tamez MD Unavailable Encounter Details Date Type Department Care Team Description 10/09/2009 Office Visit-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 - CAD, 414.00 2. - Hyperlipidemia, 272.4 3. Cerebral Vascular Accident, 435.9 4. RI-S/P Anterior, 412 5. PTCA-LAD FLORI stent 03/2005 for AMI, V45.82 6. - Cardiomyopathy Ischemic, 414.8 7. - Hypertension, benign, 401.1 8. Diabetes Mellitus-NIDD/circ dis/uncont, 250.72 ALLERGIES NKA MEDICATIONS (prior to changes made today) 1. Vytorin 10-20 10-20 mg Tablet, 1 qHS 2. Metoprolol 75mg, 1 p.o. twice daily 3. Plavix 75 Mg Tablet, 1 p.o. daily 4. Ramipril 10 mg Capsule, 1 po bid 5. Nitroglycerin 0.4 mg Tablet, Sublingual, Take as Directed CHIEF COMPLAINTS Followup of 1 month and Medication check HISTORY OF PRESENT ILLNESS This is a delightful 54-year-old male who presents to the [facility] today for a followup visit. He is a patient of Dr. Foreman'sanket who is seen in our clinic for a past medical history of: 1. Coronary artery disease. 2. Hypertension. 3. Hyperlipidemia. 4. Cardiomyopathy. 5. Borderline diabetes. 6. History of CVA. Rodolfo has a known history of coronary artery disease and did suffer an anterior wall myocardial infarction and emergent LAD stenting in 2004. His most recent nuclear stress test was done one year ago, which showed an anteroapical myocardial infarction without evidence of ischemia. In follow up, he has been free from any anginal symptoms. He is on beta-blockade and KELI inhibitor therapy. 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 Fortunately, he has had complete resolution. He has known elevated cholesterol levels. His most recent LDL level was 77. This was done through his primary medical doctor. He has remained on Vytorin. He has known low normal left ventricular function. In follow up, he has not experienced any heart failure symptoms. I saw Rodolfo last month for an annual office visit. His blood pressure was uncontrolled. I have increased his ramipril to 10 mg twice daily. He returnstoday for a BMP and reassessment. Rodolfo tells me that he has been doing well. He denies any chest discomfort or neck, arm, or jaw pain with activity or at rest. He is not short of breath. He has no limitations in his activities of daily living and is quite active. He denies orthopnea, paroxysmal nocturnal dyspnea, or peripheral edema. He also denies palpitations, lightheadedness, dizziness, or near syncope. He does monitor his blood pressure at home on an occasional basis. He tells me that his systolic blood pressures mainly run at 120 to 130 mmHg. I did review a BMP that was done through our office today. It showed a sodium of 139. Potassium was 4.6. BUN was 17. Creatinine was 1.06. His blood pressure today was 141/78. Heart rate was 51. His lungs were clear. There was no evidence of any jugular venous distention or peripheral edema. Further review of systems and physical exam areas noted below. PAST HISTORY Past Medical Illnesses: hyperlipidemia, diabetes zeazsiuw-see-yudzvft dependent, hypertension, CVA without residual deficits Past Cardiac Illnesses: chest pain, positive family hx cvd, coronary artery disease, S/P myocardial infarction-anterior 2004 Cardiology Procedures-Invasive: cardiac cath (left) March 2005, PTCA with intracoronary stent placement of LAD March 2005, NELDA Apr 2008 Cardiology Procedures-Noninvasive: echocardiogram April 2005, echocardiogram March 2006 x 2, myocardial perfusion (Nuc) Aug 2008 Cardiac Cath Results: occlusion mid LAD, successful flori to LAD PMHx Echo Results: 03/11 No definite apical thrombus; mild concentric LVH;LVSF reduced; EF=35%. Distal septal and apicalwall motion abnormality noted. Left Ventricular Ejection Fraction: EF 40-50% by Echo -April 2005, 45% by echo 03/11, EF 45-50% by nuclear study - Aug 2008 Nuclear Results: 08/13 no significant ischemia FAMILY HISTORY: Father - mphesema; Mother - Age 75, of heart disease; Sibling(s) - alive and well; Brother 1 -Age 30, shot/unsure; SOCIAL HISTORY Alcohol Use - drinks occasionally; Smoking - used to smoke but quit and 1980; Diet - low cholesterol, low sodium (less than 2 grams), low fat Diet and caffeine use-1-2 per day; Lifestyle - ; Exercise - exercises daily, Lifetime fitness 35-45 min, cycling, rowing machine, treadmill and weight lif ting; Seat Belt Use - always; Occupation - [employer]; Residence - lives with ; Place of - [place]; Hours Worked - 40 hours per week; REVIEW OF SYSTEMS GENERAL weight down 2 lb INTEGUMENTARY denies any change in hair or nails, rashes, or skin lesions. EYES wears eye glasses/contact lenses EARS, NOSE, THROAT, MOUTH denies any hearing loss, epistaxis, hoarseness or difficulty speaking. RESPIRATORY denies dyspnea, snoring, cough, wheezing or hemoptysis. CARDIOVASCULAR negative for palpitations, chest pain, orthopnea, PND, peripheral edema, syncope or claudication. ABDOMINAL denies ulcer disease, hematochezia or melena. MUSCULOSKELETAL denies any history of arthritic symptoms or back problems. NEUROLOGICAL denies any history of recurrent strokes, headaches, TIA, or seizure disorder. PSYCHIATRIC denies any history of depression, substance abuse or change in cognitive functions. ENDOCRINE hyperlipidemia HEMATOLOGICAL/IMMUNOLOGIC denies any food allergies, seasonal allergies, bleeding disorders. PHYSICAL EXAMINATION VITAL SIGNS: Blood Pressure: 141/78Sitting, Right arm, regular cuff Pulse- 51.00/min. Weight- 186.30 lbs. Height- 70.00 Temperature- .00 CONSTITUTIONAL well developed, well nourished, in no acute distress SKIN warm and dry to touch, no apparent skin lesions, or masses noted. HEAD normocephalic, atraumatic EYES pupils equal and round ENT no pallor or cyanosis, dentition good NECK carotid pulses are full and equal bilaterally, JVP normal, no carotid bruit, no thyromegaly CHEST clear to auscultation, normal respiratory excursion CARDIAC regular rhythm, S1 normal, S2 normal, No S3 or S4, Apical impulse not displaced, no murmurs, gallopsor rubs detected. ABDOMEN abdomen soft, bowel sounds normoactive PERIPHERAL PULSES pulses full and equal in all extremities, no bruits auscultated. EXTREMITIES & BACK no clubbing, cyanosis or edema NEUROLOGICAL no gross motor deficits noted, affect appropriate, oriented to time, person and place. MEDICATIONS UPDATED/STARTED TODAY: Ramipril 10 mg Capsule, 1 po bid, #180 MEDICATIONS REFILLED/STOPPED TODAY: Ramipril 10 mg Tablet 1 p.o. twice daily #60 Physician Order IMPRESSIONS/PLAN 1. Coronary artery disease. Rodolfo has a history of emergent LAD stenting in 2004 with presentation of an anterior wall myocardial infarction. He is free from any anginal symptoms at this time. One year ago, a nuclear stress test showed no evidence of ischemia. 2. Hypertension. Rodolfo's blood pressure is slightly improved on a higher dose of ramipril. However, it is still fairly borderline. He does assure me that at home his blood pressure remains under 140 mmHg. We talked about lifestyle modifications ofreducing elevated blood pressure. He would like to continue to monitor this at home and work on lifestyle modifications. We will have him return in six months for reassessment. He is to notify our clinic with any systolic blood pressures over 140 mmHg or diastolic blood pressures over 80 mmHg. 3. Hyperlipidemia. He is on Vytorin. Her LDL is at goal. This is managed through is primary medical doctor. 4. Low normal left ventricular function. He is on beta-blockade and KELI inhibitor therapy. There are no signs or symptoms of fluid overload on today's examination. 5. History of CVA, which is felt to be embolic. Fortunately, he has had complete resolution. He remains on Plavix. 6. Rodolfo has a history of borderline diabetes. This is being followed closely through his primary medical doctor. Thank you for allowing me to participate in this patient's care. TODAYS ORDERS 1. F/U with Yazan Foreman MD 6 months Katy Trevizo NLouann. documented in this encounter Plan of Treatment Not on filedocumented as of this encounter Visit Diagnoses Not on filedocumented in this encounter Care Teams Delinquent Notice Machine Operator Relationship Specialty Start Date End Date Andrey Tamez MD PCP - General 03/26/09 Andrey Tamez MD PCP - Assigned PCP 09/11/12 11/08/18 [address] [place] [id number] Andrey Tamez MD Assigned PCP 09/11/12 09/07/20 [address] [place] [address] [phone] documented as of this encounter
--- OUTSIDE RECORDS SUMMARY | 2022-07-09 12:40 | XMS_ITS | Encounter Summary ---
:1945 Author Organization [facility] Address [address] [place] [address] Care Team Providers Name Role Phone Andrey Tamez MD Primary Care Provider Reason for Visit Auth/Cert - Closed Specialty Diagnoses / Procedures Referred By Contact Refer red To Contact Gastroenterology Diagnoses screening colonosopy Rh Endoscopy Procedures COLONOSCOPY [address] [place] [address] Phone: Fax: Referral ID Status Reason Start Date Expiration Date Visits Requ ested Visits Authorized [id number] Closed 10/06/2011 04/03/2012 1 1 Encounter Details Date Type Department Care Team Description 10/26/2011 Hospital Encounter [facility] Nicolas Cook Endoscopy [place] MD Rajan [address] [facility] [id number] [place] [address] [place], [place] [address] (Wo rk) Social History Tobacco Use Types Packs/Day Years Used Date Smoking Tobacco: Former Cigarettes 0.5 16 Quit : 09/06/1978 Smokeless Tobacco: Never Alcohol Use Standard Drinks/Week Comments Yes 10 (1 standard drink = 0.6 oz pure alcoh ol) A drink every 1-2 weeks. 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 documented as of this encounter Last Filed Vital Signs Vital Sign Reading Time Taken Comments Blood Pressure 151/81 10/26/2011 11:00 AM SKIN LIFTER BACON Pulse - - Temperature - - Respiratory Rate 14 10/26/2011 11:00 AM SKIN LIFTER BACON Oxygen Saturation 91% 10/26/2011 10:40 AM SKIN LIFTER BACON Inhaled Oxygen Concentration - - Weight 80.3 kg (177 lb) 10/26/2011 9:55 AM SKIN LIFTER BACON Height 177.8 cm (5' 10) 10/26/2011 9:55 AM SKIN LIFTER BACON Body Mass Index 25.4 10/26/2011 9:55 AM SKIN LIFTER BACON documented in this encounter Medications at Time [...] and unspecified hyperlipidemia, CAD (coronary artery disease) levofloxacin (LEVAQUIN) Take 1 tablet by 10 tablet 0 201010/19/2012 500 MG mouth daily. tabletIndications: Cough with sputum METFORMIN HCL TABS 500 1 tab po [...] erectile dysfunction. documented as of this encounter Miscellaneous Notes Brief Op Note - Nicolas Cook MD - 10/26/2011 10:49 AM CST See Provation note LIFTER BACON documented in this encounter Plan of Treatment Not on filedocumented as of this encounter Procedures Procedure Name Priority Date/Time Associated Diagnosis Comme nts COLONOSCOPY 10/26/2011 10:03 AM SKIN LIFTER BACON screening Special Needs Referring: [facility] leliaobey r COLONOSCOPY Routine 10/26/2011 9:59 AM SKIN LIFTER BACON Resul ts for this procedure are in the results section . documented in this encounter Results COLONOSCOPY (10/26/2011 9:59 AM SKIN LIFTER BACON) [facility] Method Time Signature COLONOSCOPY [facility] RAD IOLOGY RESULTS Patient Name: Rodolfo Quevedo ? Procedure Date: 10/26/2011 9:59:27 AM ? Date of : 1945 ? Admit Type: Outpatient ? Age: 66 ? Gender: Male ? Attending MD: Nicolas Ahumada MD ? Procedure: ?Colonoscopy Indications: ?Screening for colorec stephanie malignant neoplasm Providers: ?Nicolas Cook MD Referring MD: ? Andrey Tamez MD Medicines: ?Midazolam 2 mg IV, Fentanyl 100 micrograms IV Complications: ?No immediate complications Procedure: ?Pre-Anesthesia Assessment: ?- The risks and benefits of the procedure and the ?sedation options and risks were discussed with the ?patient. All questions were answered and informed ?consent was obtained. ?- Patient identification and proposed procedure ?were verified prior to the procedure by the ?physician. The procedure was verified in the ?procedure room. ?- Airway Examination: normal oropharyngeal airway ?and neck mobility. ?- Respiratory Examination: clear to auscultation. ?- CV Examination: nor mal. ?- ASA Grade Assessment: I - A normal, healthy ?patient. ?- After reviewing the risks and benefits, the ?patient was deemed in satisfactory condition to ?undergo the procedure . ?- The anesthesia plan was to use moderate ?sedation/analgesia (conscious sedation). ?- Immediately prior to administration of ?medications, the patient was re-assessed for ?adequacy to receive s edatives. ?- The heart rate, respiratory rate, oxygen ?saturations, blood pressure, adequacy of pulmonary ?ventilation, and response to care were monitored ?throughout the proced ure. ?- The physical status of the patient was ?re-assessed after the procedure. ?After obtaining informed consent, the colonoscope ?was passed under direct vision. Throughout the ?procedure, the patient's blood pressure, pulse, and ?oxygen saturations were monitored continuously. The ?Colonoscope was introduced through the anus and ?advanced to the cecum, identified by appendiceal ?orifice & ileocecal valve. The colonoscopy was ?performed without difficulty. The patient tolerated ?the procedure well. The quality of the bowel ?preparation was good. ? Findings: ? Internal hemorrhoids were found d uring retroflexion and were small. The ? exam was otherwise without abnormality. ? Impression: ? - Internal hemorrhoids. ?- The examination was otherwise normal. Recommendation: ? - Repeat colonosc opy in 10 years for screening ?purposes. ?- High fiber diet ? Tayla MAY Nicolas Cook MD Signed Date: 10/26/2011 10:46:01 AM Number of Addenda: 0 I was physically present for the entire viewing portion of t exam. Note Initiated On: 10/26/2011 9:59:27 AM Scope Withdrawal Time: 0 hours 7 minutes 3 seconds Total Procedure Duration: 0 hours 11 minutes 28 seconds Specimen (Source) Anatomical Collection Method Collection Time Re ceived Time Location / / Volume Laterality 10/26/2011 9:59 AM SKIN LIFTER BACON Andrey Tamez MD PROCEDURES Performing Organization Address City/State/ZIP Code Phon e Number RADIOLOGY RESULTS documented in this encounter Visit Diagnoses Not on filedocumented in this encounter Active and Recently Administered Medications Times are shown in SKIN LIFTER BACON. PRN Medication Order 10/24/2011 10/25/2011 10/26/2011 fentanyl (SUBLIMAZE) injection (CANCELED) 1029 (Given - Provider: Lina Pablo, AVA) PRN, moderate to severe pain, Starting 10/26/11 at 1029, Intr a-procedure midazolam (VERSED) injection (CANCELED) 1029 (Given - Provider: Lina Pablo RN) PRN, anxiety, Starting 10/26/11 at 1029, Intra-procedure documented in this encounter Care Teams Industrial Sales Engineer Relationship Specialty Start Date End Date Andrey Tamez MD PCP - General 03/26/09 documented as of this encounter
--- OUTSIDE RECORDS SUMMARY | 2022-07-09 12:40 | XMS_ITS | Encounter Summary ---
:1945 Author Organization [facility] Address [address] [place] [address] Care Team Providers Name Role Phone Andrey Tamez MD Primary Care Provider Andrey Tamez MD Unavailable Andrey Tamez MD Unavailable Reason for Visit Reason Onset Date Comments Nurse Advice Line 09/07/2011 Encounter Details Date Type Department Care Team Description 09/07/2011 Telephone [facility] Andrey Tamez MD Nurse Advice Line [place] [address] [facility] 303 [facility] [address] [place] [address] [place], [place] [phone] (Wo rk) [address] [phone] Social History Tobacco Use Types Packs/Day Years Used Date Smoking Tobacco: Former Cigarettes 0.5 16 Quit : 09/06/1978 Alcohol Use Standard Drinks/Week Comments Yes 10 (1 standard drink = 0.6 oz pure alcoh ol) A drink every 1-2 weeks. 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 Patient Gender: Male Dish Up Person Name: Shiela Slaughter Presenting Problem: I had a sore throat. Triage Note: Guideline Title: Diabetes: Respiratory Problems Recommended Disposition: Override Disposition: See Provider within 24 hours Question Response Question Note Unconscious No New or worsening signs and symptoms that may indicate No shock Severe breathing problems No Chest pain No Diabetes control of more concern than respiratory No symptoms New or worsening breathing problems No New onset shortness of breath, history of blood clots in No lung or legs AND similar symptoms now Cough AND repeated vomiting for more than 4 hours No Severe sore throat interfering with intake and has missed No one or more meals Any new or worsening respiratory symptoms AND any No temperature elevation Pain with tenderness, swelling or redness above or below No eyes or near ears over sinuses Pain above or below eyes over sinuses (teeth/eyes may No hurt) Mild to moderate headache for more than 24 hours No unrelieved with OTC medications Productive cough with colored sputum (other than clear Yes or white sputum) Physician Contacted: Physician Instructions: No Care Advice: - Use a cool mist humidifier to moisten air. Be sure to clean according to weather strip installer's instructions. - May inhale steam from hot shower or heated water. Be careful to avoid escobar. - Call provider if symptoms worsen or new symptoms develop. - List, or take, all current prescription(s), OTC or alternative medication(s) to provider for evaluation. - Go to the ED immediately if difficulty breathing, can't swallow saliva, or has headache, stiff neck, or temperature greater than 101.5 F (38.6 C). - Increase fluids to 8-12 eight oz (1.6 to 2.4 liters) glasses per day, half of them to be water. Soups, popsicles, fruit juices, non-caffeinated sodas (unless restricting sodium intake), jello, broths, decaf teas, etc. are all okay. Warm fluids can be soothing. - Test your blood sugar before driving. Do not drive if blood sugar 70 mg/dl or less. - Check with provider before using OTC medications. Many drugs may raise or lower the blood sugar level. Always check the labels for ingredients. Some liquids like cough syrup may contain sugar. - Consider use of a saline nasal spray per package directions to help relieve nasal congestion. - Diabetes Action Plan: - Follow recommended action plan and diet - Check blood sugar as recommended - Take diabetic pills or insulin as ordered - Follow action plan for illness. - Consider acetaminophen as directed on label or by pharmacist/provider for pain or fever PRECAUTIONS: - If there is no history of liver disease, alcoholism, or intake of three or more alcohol drinks per day - If approved by provider during or when - During , acetaminophen should not be taken more than 3 consecutive days without telling provider - Do not exceed recommended dose or frequency - INFECTION CONTROL - CAUTIONS - If you can, stop smoking now and avoid all secondhand smoke. - Respiratory Hygiene: - Cover the nose/mouth tightly with a tissue when coughing or sneezing. - Use tissue 1 time and discard in the nearest waste receptacle. - Wash hands with soap and water or alcohol-based hand rub after coming into contact with respiratory secretions and contaminated objects/materials. - Alternatively when no tissue is available, cough into the bend of the elbow. - SYMPTOM / CONDITION MANAGEMENT - Coughing up mucus or phlegm helps to get rid of an infection. A productive cough should not be stopped. A cough medicine with guaifenesin (Robitussin, Mucinex) can help loosen the mucus. Cough medicine with dextromethorphan (DM) should be avoided. Drinking lots of fluids can help loosen the mucus too, especially warm fluids. MEDICAL HISTORY Conditions: Condition Note: Medication: Medication Note: Allergy: Reaction: Procedure: Procedure Note: CH ENGINE OPTIMIZER documented in this encounter Plan of Treatment Not on filedocumented as of this encounter Visit Diagnoses Not on filedocumented in this encounter Care Teams Cement Storage Worker Relationship Specialty Start Date End Date Andrey Tamez MD PCP - General 03/26/09 Andrey Tamez MD PCP - Assigned PCP 09/11/12 11/08/[address]LL [address] [address] Andrey Tamez MD Assigned PCP 09/11/12 09/07/20 [address] [facility] 160 [place], [place] [address] documented as of this encounter
--- OUTSIDE RECORDS SUMMARY | 2022-07-09 12:40 | XMS_ITS | Encounter Summary ---
:1945 Author Organization [facility] Address [address] [place] [address] Care Team Providers Name Role Phone Andrey Tamez MD Primary Care Provider Reason for Visit Reason Onset Date Comments Refill Request 06/10/2010 fax to [facility] Encounter Details Date Type Department Care Team Description 06/10/2010 Refill [facility] Andrey Tamez MD Refill Request (fax to [facility] [address] [employer]) [address] [place], [place] [id number] [phone] Social History Tobacco Use Types Packs/Day Years Used Date Smoking Tobacco: Former Cigarettes 0.5 16 Quit : 09/06/1978 Alcohol Use Standard Drinks/Week Comments Yes 10 (1 standard drink = 0.6 oz pure alcoh ol) A drink every 1-2 weeks. 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/2020 10:26 AM SAP BASIS documented as of this encounter Miscellaneous Notes Telephone Encounter - Gris Dunham - 06/10/2010 5:35 PM CDT Patient left message on nurse VM Rx for Ramipril needs to be change to bid rather than one per day. Confirmed this with pt and Dr Tamez. Rx printed with bid dosing and left at front airline lounge receptionist dsk for pt to p/u. Message handled by Nurse Triage with [facility]. documented in this encounter Plan of Treatment Not on filedocumented as of this encounter Visit Diagnoses Diagnosis TIA (transient ischaemic attack) - Prima ry Unspecified transient cerebral ischemia documented in this encounter Care Teams Nail Polish Brush Machine Feeder Relationship Specialty Start Date End Date Andrey Tamez MD PCP - General 03/26/09 documented as of this encounter
--- OUTSIDE RECORDS SUMMARY | 2022-07-09 12:40 | XMS_ITS | Encounter Summary ---
:1945 Author Organization [facility] Address [address] [place] [address] Care Team Providers Name Role Phone Andrey Tamez MD Primary Care Provider Reason for Visit Reason Onset Date Comments Patient Inquiry 09/01/2011 wants ABX Encounter Details Date Type Department Care Team Description 09/01/2011 Telephone [facility] Andrey Tamez MD Patient Inquiry (wants [facility] [place] [address]) [address] [place] [address] [place] [address] [place], [place] [phone] (Wo rk) [phone] [phone] Social History Tobacco Use Types Packs/Day Years Used Date Smoking Tobacco: Former Cigarettes 0.5 16 Quit : 09/06/1978 Alcohol Use Standard Drinks/Week Comments Yes 10 (1 standard drink = 0.6 oz pure alcoh ol) A drink every 1-2 weeks. 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 CONDUCTOR Telephone Encounter - Rishabh Spencer MD - 09/01/2011 10:06 AM CST Please call and notify pt that prescription faxed to the pharmacy.Thanks! CONDUCTOR Telephone Encounter - WaltreLaquita - 09/01/2011 9:46 AM CST [place] pt Pt calls c/o productive cough x one month. Pt states that he is coughing up green phelgm and is concerned he may have pneumonia. Pt states that he has R side lung pain from coughing. Pt denies fever, ST, headache, facial pain or tenderness. Pt wants to know if he can get an ABX or does PCP prefer him to schedule appt. Please advise. CONDUCTOR documented in this encounter Plan of Treatment Not on filedocumented as of this encounter Visit Diagnoses Diagnosis Cough with sputum - Primary Cough documented in this encounter Care Teams Ceo & Co Founder Relationship Specialty Start Date End Date Andrey Tamez MD PCP - General 03/26/09 documented as of this encounter
--- OUTSIDE RECORDS SUMMARY | 2022-07-09 12:40 | XMS_ITS | Encounter Summary ---
:1945 Author Organization [facility] Address [address] [place] [address] Care Team Providers Name Role Phone Andrey Tamez MD Primary Care Provider Andrey Tamez MD Unavailable Andrey Tamez MD Unavailable Reason for Visit Reason Comments Diabetes MEL 02/19/2011 Lipids Hypertension Pre Visit Planning-Patient Declined not needed Refill Request Encounter Details Date Type Department Care Team Description 10/19/[address] [facility] Andrey Tamez, CAD (c oronary artery disease) (Primary Dx); [facility] Presence of stent in anterior descending branch of left coronary artery; [address] Unspecified e ssential hypertension; [address] Type 2 diabetes, HbA1C goal < 8% (H); [place], [place] Hyperlipide johan LDL goal <100; [id number] H/O cerebral embolic infarction [phone] Social History Tobacco Use Types Packs/Day Years Used Date Smoking Tobacco: Former Cigarettes 0.5 16 Quit : 09/06/1978 Smokeless Tobacco: Never Alcohol Use Standard Drinks/Week Comments Yes 10 (1 standard drink = 0.6 oz pure alcoh ol) A drink every 1-2 weeks. 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 documented as of this encounter Last Filed Vital Signs Vital Sign Reading Time Taken Comments Blood Pressure 122/82 10/19/2012 9:37 AM CAN CLOSING MACHINE TENDER Pulse 64 10/19/2012 9:37 AM CAN CLOSING MACHINE TENDER Temperature 36.3 ??C (97.3 ??F) 10/19/2012 9:37 AM CAN CLOSING MACHINE TENDER Respiratory Rate - - Oxygen Saturation 97% 10/19/2012 9:37 AM CAN CLOSING MACHINE TENDER Inhaled Oxygen Concentration - - Weight 80.6 kg (177 lb 12.8 oz) 10/19/2012 9:37 AM CAN CLOSING MACHINE TENDER Height 174.6 cm (5' 8.75) 10/19/2012 9:37 AM CAN CLOSING MACHINE TENDER Body Mass Index 26.45 10/19/2012 9:37 AM CAN CLOSING MACHINE TENDER documented in this encounter Patient Instructions Patient InstructionsAndrey Tamez MD - 10/19/2012 9:49 AM CST Everything looks fine! Morning fasting (pre-breakfast) glucoses should run below 130, otherwise call me. Refills of medications have been faxed to your pharmacy. Return for a fasting lab only appointment in six months (April 2013) See you in a year, sooner if problems. CLOSING MACHINE TENDER documented in this encounter Progress Notes Andrey Tamez MD - 10/19/2012 10:02 AM CST Rodolfo Quevedo presents for f/u of diabetes mellitus, hypertension, hyperlipidemia, coronary artery disease s/p LAD stent in 2004, h/o TIA/small right posterior frontal cardioembolic infarct in 2006. Pt is not checking glucoses regularly and does not feel confident that his meter is still accurate. He is provided with a Amna Contour meter and strips, and encouraged to check periodic AM glucoses, and to call if running >130. We discussed various targets in treatment of diabetes: Target LDL of below 100, BP below 140/90, and target A1c of below 8.0. We discussed parameters not within range and various medication options to reach these targets. He has felt well and offers no complaints. No chest discomfort. No focal neurologic symptoms. He needs refills of medications. Past medical, family and social histories as well as medications reviewed and updated as needed. No dyspnea or cough. No chest discomfort, dizziness or palpitations. No diarrhea, abdominal pain or rectal bleeding. No acute problems with vision or speech, lateralizing weakness or paresthesias. ROS: as above or negative for Respiratory, CV, GI, endocrine, neuro systems. OBJECTIVE: Well-appearing older male in no distress. BP 122/82 Pulse 64 Temp(Src) 97.3 ??F (36.3 ??C) (Oral) Ht 5' 8.75 (1.746 m) Wt 177 lb 12.8oz (80.65 kg) BMI 26.45 kg/m2 SpO2 97% Neck: supple, no adenopathy, thyromegaly or masses. Chest: Clear to auscultation and percussion. Cardiac: Normal to precordial auscultation. No jugular venous distention. Neuro: CN grossly intact. Speech fluent. Moves all extremities equally. ASSESSMENT/PLAN: CAD (coronary artery disease) (primary encounter diagnosis) Comment: No symptoms of angina or CHF. Continue current meds. 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 Unspecified essential hypertension Comment: BP at target. Continue current meds. Plan: metoprolol (LOPRESSOR) 100 MG tablet Type 2 diabetes, HbA1C goal < 8% Comment: A1c at target. Continue current measures. Plan: Offered Amna Contour Kit, faxed Rx for strips. See pt instructions and epic orders. Hyperlipidemia LDL goal <100 Comment: LDL at target. Continue current meds. H/O cerebral embolic infarction Comment: No residual neurologic symptoms. Continue Plavix and current medications. Patient Instructions Everything looks fine! Morning fasting (pre-breakfast) glucoses should run below 130, otherwise call me. Refills of medications have been faxed to your pharmacy. Return for a fasting lab only appointment in six months (April 2013) See you in a year, sooner if problems. Andrey Tamez MD CLOSING MACHINE TENDER documented in this encounter Nursing Notes 10/19/2012 9:30 AM CST >> MYRIAMNikos CHIN [facility] Oct 19, 2012 9:39 AM Patient presents with: Diabetes - MEL 02/19/2011 Lipids Blood Pressure Pre Visit Planning-Patient Declined - not needed Refill Request Initial BP 122/82 Pulse 64 Temp(Src) 97.3 ??F (36.3 ??C) (Oral) Ht 5' 8.75 (1.746 m) Wt 177lb 12.8 oz (80.65 kg) BMI 26.45 kg/m2 SpO2 97% Estimated Body mass index is 26.45 kg/(m^2) as calculated from the following: Height as of this encounter: 5' 8.75(1.746 m). Weight as of this encounter: 177 lb 12.8 oz(80.65 kg).. 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 Unspecified essential hypertension Type 2 diabetes, HbA1C goal < 8% (H) Type II or unspecified type diabetes vijaya litus without mention of complication, not stated as uncontrolled Hyperlipidemia LDL goal <100 Other and unspecified hyperlipidemia H/O cerebral embolic infarction Personal history of other disorders of n ervous system and sense organs documented in this encounter Care Teams Sterile Products Processor Relationship Specialty Start Date End Date Andrey Tamez MD PCP - General 03/26/09 Andrey Tamez MD PCP - Assigned PCP 09/11/12 11/08/[address] [place] [address] Andrey Tamez MD Assigned PCP 09/11/12 09/07/[address] [place] [address] documented as of this encounter
--- OUTSIDE RECORDS SUMMARY | 2022-07-09 12:40 | XMS_ITS | Encounter Summary ---
:1945 Author Organization [place] Address [address] [place] [address] Care Team Providers Name Role Phone Andrey Tamez MD Primary Care Provider Andrey Tamez MD Unavailable Andrey Tamez MD Unavailable Reason for Visit Reason Onset Date Comments Refill Request 10/13/2012 multiple Encounter Details Date Type Department Care Team Description 10/13/2012 [facility] [place] [facility] Jade Gill Refill Request Clinic Bryant Larson MD (multiple) [address] [facility] [address] [place] [phone] Social History Tobacco Use Types Packs/Day Years Used Date Smoking Tobacco: Former Cigarettes 0.5 16 Quit : 09/06/1978 Smokeless Tobacco: Never Alcohol Use Standard Drinks/Week Comments Yes 10 (1 standard drink = 0.6 oz pure alcoh ol) A drink every 1-2 weeks. 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 encounter Miscellaneous Notes Telephone Encounter - Laquita Walter - 10/13/2012 12:02 PM CST Refilled x 1 ISTRY INTERN Telephone Encounter - Walter, Laquita - 10/13/2012 9:38 AM CHEMISTRY INTERN Message from [place]: Original authorizing provider: MD Rodolfo Adair would like a refill of the following medications: simvastatin (ZOCOR) 20 MG tablet [Jade Gill MD] Preferred pharmacy: [facility] - [place], [place] - [address] [facility] Comment: Medication renewals requested in this message routed to other providers: ramipril (ALTACE) 10 MG capsule [Andrey Tamez MD, MD] metoprolol (LOPRESSOR) 100 MG tablet [Andrey Tamez MD, MD] clopidogrel (PLAVIX) 75 MG tablet [Andrey Tamez MD, MD] ISTRY INTERN documented in this encounter Plan of Treatment Not on filedocumented as of this encounter Visit Diagnoses Diagnosis Other and unspecified hyperlipidemia - P rimary documented in this encounter Care Teams Kiln Hand Relationship Specialty Start Date End Date Andrey Tamez MD PCP - General 03/26/09 Andrey Tamez MD PCP - Assigned PCP 09/11/12 11/08/18 [address] [place] [address] Andrey Tamez MD Assigned PCP 09/11/12 09/07/20 [address] [place] [address] documented as of this encounter
--- OUTSIDE RECORDS SUMMARY | 2022-07-09 12:40 | XMS_ITS | Encounter Summary ---
:1945 Author Organization [place] Address [address] [place] [address] Care Team Providers Name Role Phone Andrey Tamez MD Primary Care Provider Andrey Tamez MD Unavailable Andrey Tamez MD Unavailable Encounter Details Date Type Department Care Team Description 10/11/2012 Orders Only [facility] Typ e 2 diabetes, HbA1C [facility] goal < 8% (H) (Primary Dx) [address] [place] [address] Social History Tobacco Use Types Packs/Day Years Used Date Smoking Tobacco: Former Cigarettes 0.5 16 Quit : 09/06/1978 Smokeless Tobacco: Never Alcohol Use Standard Drinks/Week Comments Yes 10 (1 standard drink = 0.6 oz pure alcoh ol) A drink every 1-2 weeks. 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 LIPID REFLEX TO DIRECT Routine 10/11/2012 9:40 AM Type 2 diabe jamila, Results for this LDL PANEL WELDER AND FITTER HbA1C goal < 8% (H) procedur e are in the results section. HEMOGLOBIN A1C Routine 10/11/2012 9:40 AM Type 2 diabetes, Res ults for this WELDER AND FITTER HbA1C goal < 8% (H) procedangela e are in the results section. COMPREHENSIVE Routine 10/11/2012 9:40 AM Type 2 diabetes, Resu lts for this METABOLIC PANEL WELDER AND FITTER HbA1C goal < 8% (H) proce rickie are in the results section. documented in this encounter Results TSH with free T4 reflex (10/11/2012 11:39 AM WELDER AND FITTER) athologist Signature TSH 1.00 0.4 - 5.0 [facility] mU/L CLINIC LAB Specimen Anatomical Collection Method Collection Time Receive d Time (Source) Location / / Volume Laterality Blood specimen 10/11/2012 11:39 3 (specimen) AM WELDER AND FITTER 11:44 AM WELDER AND FITTER Andrey Tamez MD LAB - BLOOD ORDERABLES Performing Organization Address City/State/ZIP Code Phon e Number [facility] [address] [place] [address] [facility] [address] [place] [address] (ABNORMAL) Lipid panel reflex to direct LDL (10/11/2012 9:40 AM WELDER AND FITTER) athologist Signature Cholesterol 160 0 - 200 [facility] mg/dL CLIN[facility] LAB Comment: LDL Cholesterol is the primary guide to therapy. The NCEP recommends further evaluation of: patients with cholesterol greater than 200 mg/dL if additional risk facto rs are present, cholesterol greater than 240 mg/dL, triglycerides greater than 1 50 mg/dL, or HDL less than 40 mg/dL. Triglycerides 177 (H) 0 - 150 mg/dL [facility] HDL Cholesterol 33 (L) 40 - 110 mg/dL [facility] LDL Cholesterol Calculated 92 0 - 129 mg/dL [facility] Comment: LDL Cholesterol is the primary guide to therapy: LDL-cholesterol goal in high risk patients is <100 mg/dL and in very high risk patients is <70 mg/dL. VLDL-Cholesterol 35 (H) 0 - 30 mg/dL [facility] Cholesterol/HDL Ratio 4.9 0.0 - 5.0 [facility] Specimen Anatomical Collection Method Collection Time Receive d Time (Source) Location / / Volume Laterality Blood specimen 10/11/2012 9:40 AM 013 9:45 (specimen) WELDER AND FITTER AM WELDER AND FITTER Andrey Tamez MD LAB - BLOOD ORDERABLES Performing Organization Address [facility] Phon e Number [facility] [address] [place] [address] [facility] [address] [place] [address] (ABNORMAL) Hemoglobin A1c (10/11/2012 9:40 AM WELDER AND FITTER) athologist Signature Hemoglobin A1C 7.2 (H) 4.3 - 6.0 [facility] Specimen Anatomical Collection Method Collection Time Receive d Time (Source) Location / / Volume Laterality Blood specimen 10/11/2012 9:40 AM 013 9:45 (specimen) WELDER AND FITTER AM WELDER AND FITTER Andrey Tamez MD LAB - BLOOD ORDERABLES Performing Organization Address City/[facility] Phon e Number [facility] [address] [place], [place] [address] [address] [facility] [address] [place], [place] [address] [address] (ABNORMAL) Comprehensive metabolic panel (10/11/2012 9:40 AM WELDER AND FITTER) athologist Signature Sodium 138 133 - 144 [facility] mmol/L CLINIC LAB Potassium 4.6 3.4 - 5.3 [facility] mmol/L [facility]IC LAB Chloride 102 94 - 109 [facility] mmol/L CLINIC LAB Carbon Dioxide 27 20 - 32 [facility] mmol/L [facility]INIC LAB Anion Gap 9 6 - 17 [facility] mmol/L CLINIC LAB Glucose 164 (H) 60 - 99 [facility] mg/dL CLINIC LAB Comment: Fasting specimen Urea Nitrogen 19 7 - 30 mg/dL [facility] Creatinine 0.89 0.66 - 1.25 mg/dL [facility] GFR Estimate 85 >60 mL/min/1.7m2 [facility] GFR Estimate If Black >90 >60 mL/min/1.7m2 [facility] Calcium 9.2 8.5 - 10.4 mg/dL [facility] Bilirubin Total 0.5 0.2 - 1.3 mg/dL [facility] Albumin 3.7 3.3 - 4.9 g/dL [facility] Comment: Reference range changed on 05/08. Protein Total 6.5 (L) 6.8 - 8.8 g/dL [facility] Comment: As of 08, reference range reflects plasma specimen type. Alkaline Phosphatase 95 40 - 150 U/L [facility] ALT 27 0 - 70 U/L [facility] AST 19 0 - 45 U/L [facility] LAB Specimen Anatomical Collection Method Collection Time Receive d Time (Source) Location / / Volume Laterality Blood specimen 10/11/2012 9:40 AM 013 9:45 (specimen) WELDER AND FITTER AM WELDER AND FITTER Andrey Tamez MD LAB - BLOOD ORDERABLES Performing Organization Address City/State/ZIP Code Phon e Number [facility] [address] [place] [address] [facility] [address] [place] [address] documented in this encounter Visit Diagnoses Diagnosis Type 2 diabetes, HbA1C goal < 8% (H) - P rimary Type II or unspecified type diabetes vijaya litus without mention of complication, not stated as uncontrolled documented in this encounter Care Teams Ethnology Teacher Relationship Specialty Start Date End Date Andrey Tamez MD PCP - General 03/26/09 Andrey Tamez MD PCP - Assigned PCP 09/11/12 11/08/18 [address] [place] [address] Andrey Tamez MD Assigned PCP 09/11/12 09/07/20 [address] [place] [address] documented as of this encounter
--- OUTSIDE RECORDS SUMMARY | 2022-07-09 12:40 | XMS_ITS | Encounter Summary ---
:1945 Author Organization [place] Address [address] [place] [address] Care Team Providers Name Role Phone Andrey Tamez MD Primary Care Provider Andrey Tamez MD Unavailable Andrey Tamez MD Unavailable Reason for Visit Reason Onset Date Comments Orders 10/10/2012 LAB ORDERS Encounter Details Date Type Department Care Team Description 10/10/2012 [facility] Andrey Tamez MD Orders (LAB ORDERS) Clinic [place] [address] [facility] [address] [place] [address] [place], [place] [phone] (Wo rk) [address] [phone] Social History Tobacco Use Types Packs/Day Years Used Date Smoking Tobacco: Former Cigarettes 0.5 16 Quit : 09/06/1978 Smokeless Tobacco: Never Alcohol Use Standard Drinks/Week Comments Yes 10 (1 standard drink = 0.6 oz pure alcoh ol) A drink every 1-2 weeks. 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 encounter Plan of Treatment Not on filedocumented as of this encounter Visit Diagnoses Diagnosis Type 2 diabetes, HbA1C goal < 8% (H) - P rimary Type II or unspecified type diabetes vijaya litus without mention of complication, not stated as uncontrolled documented in this encounter Care Teams Armature [employer] Relationship Specialty Start Date End Date Andrey Tamez MD PCP - General 03/26/09 Andrey Tamez MD PCP - Assigned PCP 09/11/12 11/08/18 [address] [place], [place] [phone] Andrey Tamez MD Assigned PCP 09/11/12 09/07/20 [address] [place], [place] [phone] documented as of this encounter
--- OUTSIDE RECORDS SUMMARY | 2022-07-09 12:40 | XMS_ITS | Encounter Summary ---
:1945 Author Organization [place] Address [address] [place] [address] Care Team Providers Name Role Phone Andrey Tamez MD Primary Care Provider Reason for Visit Reason Onset Date Comments Refill Request 03/28/2012 [place] Encounter Details Date Type Department Care Team Description 03/28/2012 Refill [facility] Andrey Tamez MD Refill Request Clinic [place] [address] ([place]) [address] [place], [place] [address] [place] [address] (Wo rk) [address] [phone] Social History Tobacco Use Types Packs/Day Years Used Date Smoking Tobacco: Former Cigarettes 0.5 16 Quit : 09/06/1978 Smokeless Tobacco: Never Alcohol Use Standard Drinks/Week Comments Yes 10 (1 standard drink = 0.6 oz pure alcoh ol) A drink every 1-2 weeks. 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 Telephone Encounter - Jade Gill MD - 03/28/2012 1:47 PM CDT Sent simvastatin to pharmacy. Let patient know we should repeat cholesterol level in 3 months. Telephone Encounter - Aye Lee - 03/28/2012 9:09 AM CDT Message from [employer] [place] requesting alternate medication for Vytorin 10/20 mg. Pt pays very high copay, per pharmacy. Pharmacy suggests Simvastatin 20 mg or Pravastatin 40 mg. MD authorization required. Aye Lee RN Cholesterol Date Value Range Status 03/23/2012 133 0-200 (mg/dL) Final LDL Cholesterol is the primary guide to therapy. The NCEP recommends further evaluation of: patients with cholesterol greater than 200 mg/dL if additional risk factors are present, cholesterol greater than 240 mg/dL, triglycerides greater than 150 mg/dL, or HDL less than 40 mg/dL. 02/12/2011 115 0-200 (mg/dL) Final LDL Cholesterol is the primary guide to therapy. The NCEP recommends further evaluation of: patients with cholesterol greater than 200 mg/dL if additional risk factors are present, cholesterol greater than 240 mg/dL, triglycerides greater than 150 mg/dL, or HDL less than 40 mg/dL. HDL Cholesterol Date Value Range Status 03/23/2012 34* 40-110 (mg/dL) Final 02/12/2011 34* 40-110 (mg/dL) Final LDL Cholesterol Calculated Date Value Range Status 03/23/2012 74 0-129 (mg/dL) Final LDL Cholesterol is the primary guide to therapy: LDL-cholesterol goal in high risk patients is <100 mg/dL and in very high risk patients is <70 mg/dL. 02/12/2011 62 0-129 (mg/dL) Final LDL Cholesterol is the primary guide to therapy: LDL-cholesterol goal in high risk patients is <100 mg/dL and in very high risk patients is <70 mg/dL. Triglycerides Date Value Range Status 03/23/2012 123 0-150 (mg/dL) Final 02/12/2011 98 0-150 (mg/dL) Final Cholesterol/HDL Ratio Date Value Range Status 03/23/2012 3.9 0.0-5.0 (no units) Final 02/12/2011 3.4 0.0-5.0 (no units) Final ALT 21 03/23/2012 documented in this encounter Plan of Treatment Not on filedocumented as of this encounter Visit Diagnoses Diagnosis Other and unspecified hyperlipidemia - P rimary documented in this encounter Care Teams Practice Professional Relationship Specialty Start Date End Date Andrey Tamez MD PCP - General 03/26/09 documented as of this encounter
--- OUTSIDE RECORDS SUMMARY | 2022-07-09 12:40 | XMS_ITS | Encounter Summary ---
:1945 Author Organization [place] Address [address] [place] [address] Care Team Providers Name Role Phone Andrey Tamez MD Primary Care Provider Reason for Referral Specialty Diagnoses / Procedures Referred By Contact Refer red To Contact Andrey Tamez MD [address] [place] [address] Referral ID Status Reason Start Date Expiration Date Visits Requ ested Visits Authorized Encounter Details Date Type Department Care Team Description 05/01/2010 Orders Only [facility] Andrey Tamez MD ABSTRACTING RESULTS [facility] [address] (Primary Dx) [address] [id number] [phone] Social History Tobacco Use Types Packs/Day Years Used Date Smoking Tobacco: Former Cigarettes 0.5 16 Quit : 09/06/1978 Alcohol Use Standard Drinks/Week Comments Yes 10 (1 standard drink = 0.6 oz pure alcoh ol) 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 Andrey Tamez MD REFERRAL documented in this encounter Visit Diagnoses Diagnosis ABSTRACTING RESULTS - Primary documented in this encounter Care Teams Mental Health Worker Relationship Specialty Start Date End Date Andrey Tamez MD PCP - General 03/26/09 documented as of this encounter
--- OUTSIDE RECORDS SUMMARY | 2022-07-09 12:40 | XMS_ITS | Encounter Summary ---
:1945 Author Organization [place] Address [address] [place] [address] Care Team Providers Name Role Phone Andrey Tamez MD Primary Care Provider Encounter Details Date Type Department Care Team Description 02/12/2011 Orders Only [facility] Typ e 2 diabetes, HbA1C [facility] goal < 8% (H) [address] [place] [address] Social History Tobacco Use Types Packs/Day Years Used Date Smoking Tobacco: Former Cigarettes 0.5 16 Quit : 09/06/1978 Alcohol Use Standard Drinks/Week Comments Yes 10 (1 standard drink = 0.6 oz pure alcoh ol) A drink every 1-2 weeks. 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 HEMOGLOBIN A1C Routine 02/12/2011 8:22 AM Type 2 diabetes, Res ults for this CDT HbA1C goal < 8% (H) procedur e are in the results section. COMPREHENSIVE Routine 02/12/2011 8:22 AM Type 2 diabetes, Resu lts for this METABOLIC PANEL CDT HbA1C goal < 8% (H) proce dure are in the results section. documented in this encounter Results (ABNORMAL) Lipid panel reflex to direct LDL (02/12/2011 8:22 AM CDT) athologist Signature Cholesterol 115 0 - 200 [facility] mg/dL CLINIC LAB Comment: LDL Cholesterol is the primary guide to therapy. The NCEP recommends further evaluation of: patients with cholesterol greater than 200 mg/dL if additional risk facto rs are present, cholesterol greater than 240 mg/dL, triglycerides greater than 1 50 mg/dL, or HDL less than 40 mg/dL. Triglycerides 98 0 - 150 mg/dL [facility] HDL Cholesterol 34 (L) 40 - 110 mg/dL [facility] LDL Cholesterol Calculated 62 0 - 129 mg/dL [facility] Comment: LDL Cholesterol is the primary guide to therapy: LDL-cholesterol goal in high risk patients is <100 mg/dL and in very high risk patients is <70 mg/dL. VLDL-Cholesterol 20 0 - 30 mg/dL [facility] Cholesterol/HDL Ratio 3.4 0.0 - 5.0 [facility] LAB Specimen Anatomical Collection Method Collection Time Receive d Time (Source) Location / / Volume Laterality Blood specimen 02/12/2011 8:22 AM 011 8:27 (specimen) CDT AM CDT Andrey Tamez MD LAB - BLOOD ORDERABLES Performing Organization Address City/[facility]/ZIP Code Phon e Number [address] [address] [facility] (ABNORMAL) Hemoglobin A1c (02/12/2011 8:22 AM CDT) athologist Signature Hemoglobin A1C 8.1 (H) 4.3 - 6.0 [facility] Specimen Anatomical Collection Method Collection Time Receive d Time (Source) Location / / Volume Laterality Blood specimen 02/12/2011 8:22 AM 011 8:27 (specimen) CDT AM CDT Andrey Tamez MD LAB - BLOOD ORDERABLES Performing Organization Address City/[facility]/ZIP Code Phon e Number [facility] [address] [place], [place] [address] [address] [facility] (ABNORMAL) Comprehensive metabolic panel (02/12/2011 8:22 AM CDT) P athologist Signature Sodium 139 133 - 144 [place] mmol/L [facility] Potassium 4.8 3.4 - 5.3 [place] mmol/L [facility] Chloride 103 94 - 109 [place] mmol/L [facility] Carbon Dioxide 24 20 - 32 [place] mmol/L [facility] Anion Gap 12 6 - 17 [place] mmol/L [facility] Glucose 140 (H) 60 - 99 [place] mg/dL [facility] Urea Nitrogen 23 7 - 30 [place] mg/dL [facility] Creatinine 1.12 0.66 - [place] 1.25 mg/dL [facility] LAB GFR Estimate 66 >60 [place] mL/min/1.7 [facility] m2 LAB GFR Estimate If 80 >60 [facility] mL/min/1.7 [facility] m2 LAB Calcium 9.2 8.5 - 10.4 [place] mg/dL [facility] Bilirubin Total 0.8 0.2 - 1.3 [place] mg/dL [facility] Albumin 4.0 3.3 - 4.9 [place] g/dL [facility] Comment: Reference range changed on 05/08. Protein Total 6.7 (L) 6.8 - 8.8 g/dL [facility] Comment: As of 08, reference range reflects plasma specimen type. Alkaline Phosphatase 72 40 - 150 U/L [facility] ALT 20 0 - 70 U/L [facility] CLIN IC LAB AST 20 0 - 55 U/L [facility] IC LAB Specimen Anatomical Collection Method Collection Time Receive d Time (Source) Location / / Volume Laterality Blood specimen 02/12/2011 8:22 AM 011 8:27 (specimen) CDT AM CDT Andrey Tamez MD LAB - BLOOD ORDERABLES Performing Organization Address City/State/ZIP Code Phon e Number [facility] [address] [place] [address] [facility] documented in this encounter Visit Diagnoses Diagnosis Type 2 diabetes, HbA1C goal < 8% (H) Type II or unspecified type diabetes vijaya litus without mention of complication, not stated as uncontrolled documented in this encounter Care Teams Monument Stonecutter Relationship Specialty Start Date End Date Andrey Tamez MD PCP - General 03/26/09 documented as of this encounter
--- OUTSIDE RECORDS SUMMARY | 2022-07-09 12:40 | XMS_ITS | Encounter Summary ---
:1945 Author Organization [place] Address [address] [place] [address] Care Team Providers Name Role Phone Andrey Tamez MD Primary Care Provider Reason for Visit Reason Onset Date Comments Patient Inquiry 10/21/2011 need to stop plavix prior to procedure? Encounter Details Date Type Department Care Team Description 10/21/2011 Telephone [facility] Andrey Tamez MD Patient Inquiry (need Clinic [place] [address] to stop plavix prior [address] to procedure?) [place] [address] [place], [place] [phone] (Wo rk) [address] [phone] Social History Tobacco Use Types Packs/Day Years Used Date Smoking Tobacco: Former Cigarettes 0.5 16 Quit : 09/06/1978 Smokeless Tobacco: Never Alcohol Use Standard Drinks/Week Comments Yes 10 (1 standard drink = 0.6 oz pure alcoh ol) A drink every 1-2 weeks. 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 Pt states that he will stop plavix starting today. X RAY CONTROL EQUIPMENT REPAIRER Telephone Encounter - Andrey Tamez MD - 10/21/2011 3:42 PM CST Stop Plavix 7 days prior to procedure. Please advise pt. X RAY CONTROL EQUIPMENT REPAIRER Telephone Encounter - Laquita Walter - 10/21/2011 2:55 PM CST Pt is scheduled to have colonoscopy on Wednesday and needs to know when to stop plavix? Please advise. X RAY CONTROL EQUIPMENT REPAIRER documented in this encounter Plan of Treatment Not on filedocumented as of this encounter Visit Diagnoses Not on filedocumented in this encounter Care Teams D[employer] Hand Relationship Specialty Start Date End Date Andrey Tamez MD PCP - General 03/26/09 documented as of this encounter
--- OUTSIDE RECORDS SUMMARY | 2022-07-09 12:40 | XMS_ITS | Encounter Summary ---
:1945 Author Organization [facility] Address [address] [place] [address] Care Team Providers Name Role Phone Andrey Tamez MD Primary Care Provider Reason for Referral Referral not Required - Closed Specialty Diagnoses / Procedures Referred By Contact Refer red To Contact Diagnoses Screening colonoscopy Andrey Tamez MD [place] [address] [place] [address] [facility] [address] [place] [address] Phone: Fax: Referral ID Status Reason Start Date Expiration Date Visits Requ ested Visits Authorized [id number] Closed 02/19/2011 08/18/2011 1 1 Reason for Visit Reason Comments Diabetes Pt does not have a monitor k it, colonescopy due , pnuemovax and tdap. Pre Visit Planning - Done Encounter Details Date Type Department Care Team Description 02/19/2011 Office Visit [facility] Andrey Tamez, Type 2 diabetes, HbA1C goal < 8% (H); [facility] Hyperlipidemia LDL goal <100; [address] [place] [address] Unspecified e ssential hypertension; [address] Screening colonoscopy; [place], [place] CAD (castillo ry artery disease); [id number] Need for Tdap vaccination; [phone] Vaccin strep pn eumoniae (Work) Social History Tobacco Use Types Packs/Day Years Used Date Smoking Tobacco: Former Cigarettes 0.5 16 Quit : 09/06/1978 Alcohol Use Standard Drinks/Week Comments Yes 10 (1 standard drink = 0.6 oz pure alcoh ol) A drink every 1-2 weeks. 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 Last Filed Vital Signs Vital Sign Reading Time Taken Comments Blood Pressure 136/82 02/19/2011 3:32 PM CDT Pulse 60 02/19/2011 3:32 PM CDT Temperature 36.6 ??C (97.8 ??F) 02/19/2011 3:32 PM CDT Respiratory Rate 20 02/19/2011 3:32 PM CDT Oxygen Saturation - - Inhaled Oxygen Concentration - - Weight 81.3 kg (179 lb 3.2 oz) 02/19/2011 3:32 PM CDT Height 177.8 cm (5' 10) 02/19/2011 3:32 PM CDT Body Mass Index 25.71 02/19/2011 3:32 PM CDT documented in this encounter Patient Instructions Patient InstructionsAndrey Tamez - 02/19/2011 4:06 PM CDT Visit with the diabetes RN educator about eating habits, glucose monitoring. Continue non-medication measures for diabetes control. Slight increase in metoprolol, from 75 mg to 100 mg twice daily. No other medication changes. Then see me back in about three months, with fasting labs in advance of the appointment. documented in this encounter Progress Notes Andrey Tamez - 02/17/2011 11:25 AM CDT SUBJECTIVE: Rodolfo Quevedo is a 65 year old year old male seen for a follow up visit; he has diabetes, hypertension, hyperlipidemia. Patient glucose self monitoring/averages: are performed sporadically. . Home BP's run from 120/60's to 140/70. Problems taking medications regularly? no Side effects? no What are you doing for exercise outside of work or your daily activities? 5 days a week Aakash Bhakta MA (Staff Signature) PHQ-2 Over the last two weeks- Have you been bothered by little interest or pleasure in doing things? No Over the last two weeks- Have you been been feeling down, depressed, or hopeless? No Other patient concerns: no BP Readings from Last 3 Encounters: 06/10/10 118/70 03/13/09 116/76 07/03/02 138/86 BP: Health maintenance reviewed and appropriate orders placed? Yes Aakash Bhakta MA sign and refresh note to pull in vitals A1C 8.1 02/12/2011 A1C 8.0 06/10/2010 A1C 7.5 03/13/2009 Recent Labs Lab Test 02/12/11 0822 06/10/10 0934 ??? CHOL 115 134 ??? HDL 34* 37* ??? LDL 62 75 ??? TRIG 98 112 ??? CHOLHDLRATIO 3.4 3.6 Wt Readings from Last 3 Encounters: 06/10/10 180 lb (81.647 kg) 03/13/09 185 lb (83.915 kg) 07/03/02 185 lb 8 oz (84.142 kg) Current outpatient prescriptions Medication Sig ??? ezetimibe-simvastatin (VYTORIN) 10-20 MG per tablet Take 1 tablet by mouth At Bedtime. ??? clopidogrel (PLAVIX) 75 MG tablet Take 1 tablet by mouth daily. ??? metoprolol (LOPRESSOR) 25 MG tablet Take 3 tablets by mouth 2 times daily. ??? sildenafil (VIAGRA) 100 MG tablet Take 1 tablet by mouth daily as needed for erectile dysfunction. ??? ramipril (ALTACE) 10 MG capsule Take 1 capsule by mouth 2 times daily. ??? ASPIRIN NOT PRESCRIBED, INTENTIONAL, by Other route continuous prn. Histories reviewed and updated in Epic. REVIEW OF SYSTEMS: Complete/DM ROS - C: NEGATIVE for fatigue, unexpected change in weight E: NEGATIVE for acute vision problems or changes R: NEGATIVE for significant cough or shortness of breath CV: NEGATIVE for chest pain, palpitations or new or worsening peripheral edema P: NEGATIVE for changes in mood or affect EXAM: BP 136/82 Pulse 60 Temp(Src) 97.8 ??F (36.6 ??C) (Oral) Resp 20 Ht 5' 10 (1.778 m) Wt 179lb 3.2 oz (81.285 kg) BMI 25.71 kg/m2 Estimated Body mass index is 25.71 kg/(m^2) as calculated from the following: Height as of this encounter: 5' 10(1.778 m). Weight as of this encounter: 179 lb 3.2 oz(81.285 kg). GENERAL APPEARANCE: alert and no acute distress PSYCH: mentation appears normal and affect normal/bright RESP: lungs clear to auscultation - no rales, rhonchi or wheezes CV: regular rate and rhythm, normal S1 S2, no S3 or S4 and no murmur, click or rub - EXT: no cyanosis or edema in lower extremities SKIN: no venous stasis changes Foot Exam: no ASSESSMENT/PLAN: 250.00FW Type 2 diabetes, HbA1C goal < 8% Comment: A1c just above target. Work on non-Rx measures. 272.4CL Hyperlipidemia LDL goal <100 Comment: LDL at target. Continue current meds. 401.9 Unspecified essential hypertension Comment: BP above target. Raise dose of metoprolol. Plan: metoprolol (LOPRESSOR) 100 MG tablet V76.51G Screening colonoscopy Comment: Advised colonoscopy. Plan: GASTROENTEROLOGY ADULT REFERRAL +/- PROCEDURE 414.00AE CAD (coronary artery disease) Comment: Continue metoprolol. Plan: metoprolol (LOPRESSOR) 100 MG tablet V06.1P Need for Tdap vaccinaton Plan: ADACEL (TDAP) 11-64 Vaccin strep pneumoniae [V03.82] Plan: PNEUMOVAX - ADULT Follow-up with me in three months with labs in advance, call or schedule a follow-up appointment sooner prn if any problems. documented in this encounter Nursing Notes 02/19/2011 3:30 PM CDT >> MYRIAM BHAKTA Gabriella Feb 19, 2011 3:35 PM Patient presents with: Diabetes - Pt does not have a monitor kit, colonescopy due , pnuemovax and tdap. Pre Visit Planning - Done Initial BP 136/82 Pulse 60 Temp(Src) 97.8 ??F (36.6 ??C) (Oral) Resp 20 Ht 5' 10 (1.778 m) Wt 179 lb 3.2 oz (81.285 kg) BMI 25.71 kg/m2 Estimated Body mass index is 25.71 kg/(m^2) as calculated from the following: Height as of this encounter: 5' 10(1.778 m). Weight as of this encounter: 179 lb 3.2 oz(81.285 kg).. BP completed using cuff size: regular [place] Myriam Yony ANDREWS documented in this encounter Plan of Treatment Not on filedocumented as of this encounter Procedures Procedure Name Priority Date/Time Associated Diagnosis Comme nts [facility]Z GASTROENTEROLOGY ADULT REFERRAL Routine 03/13/2011 Screen ing colonoscopy +/- PROCEDURE documented in this encounter Results GASTROENTEROLOGY ADULT REFERRAL +/- PROCEDURE (03/13/2011) Narrative This result has an attachment that is no t available. Andrey Tamez MD REFERRAL documented in this encounter Visit Diagnoses Diagnosis Type 2 diabetes, HbA1C goal < 8% (H) Type II or unspecified type diabetes vijaya litus without mention of complication, not stated as uncontrolled Hyperlipidemia LDL goal <100 Other and unspecified hyperlipidemia Unspecified essential hypertension Screening colonoscopy Special screening for malignant neoplasm s, colon CAD (coronary artery disease) Coronary atherosclerosis of unspecified type of vessel, [place] or graft Need for Tdap vaccination Need for prophylactic vaccination with c ombined jojdveddem-stjbsfx-bcjehjzqf (DTP) vaccine Need for prophylactic vaccination agains t Streptococcus pneumoniae (pneumococcus) Need for prophylactic vaccination agains t streptococcus pneumoniae (pneumococcus) documented in this encounter Care Teams Transportation Aide Relationship Specialty Start Date End Date Andrey Tamez MD PCP - General 03/26/09 documented as of this encounter
--- OUTSIDE RECORDS SUMMARY | 2022-07-09 12:40 | XMS_ITS | Encounter Summary ---
:1945 Author Organization [facility] Address [address] [place] [address] Care Team Providers Name Role Phone Andrey Tamez MD Primary Care Provider Reason for Visit Reason Onset Date Comments Refill Request 02/07/2010 plavix and vytorin Encounter Details Date Type Department Care Team Description 02/07/2010 Refill [facility] Andrey Tamez MD Refill Request (plavix Clinic [place] [address] and vytorin) [address] [place] [address] [place] [address] [place], [place] [phone] (Wo rk) [address] [phone] Social History Tobacco Use Types Packs/Day Years Used Date Smoking Tobacco: Former Cigarettes 0.5 16 Quit : 09/06/1978 Alcohol Use Standard Drinks/Week Comments Yes 10 (1 standard drink = 0.6 oz pure alcoh ol) 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 Last o/v 03/13/09. Last labs as follows: Recent Labs Lab Test 03/13/09 1106 08/09/08 07/04/02 0536 ??? CHOL 145 153@ -- ??? HDL 39* 47@ -- ??? LDL 77 76@ -- ??? TRIG 146 152@ -- ??? CHOLHDLRATIO 3.8 -- 4.3 ALT 24 03/13/2009 Approved 1 RF supply with note that MD appointment is needed per protocol. Also sent [employer] message to remind pt that he is due for o/v. Cynthia Triana RN documented in this encounter Plan of Treatment Not on filedocumented as of this encounter Visit Diagnoses Diagnosis TIA (transient ischaemic attack) Unspecified transient cerebral ischemia Other and unspecified hyperlipidemia CAD (coronary artery disease) Coronary atherosclerosis of unspecified type of vessel, [place] or graft documented in this encounter Care Teams Binding Bench Worker Relationship Specialty Start Date End Date Andrey Tamez MD PCP - General 03/26/09 documented as of this encounter
--- OUTSIDE RECORDS SUMMARY | 2022-07-09 12:40 | XMS_ITS | Encounter Summary ---
:1945 Author Organization [facility] Address [address] [place] [address] Care Team Providers Name Role Phone Andrey Tamez MD Primary Care Provider Reason for Visit Reason Onset Date Comments Chronic Care Conference Provider Overview 12/10/2010 Encounter Details Date Type Department Care Team Description 12/10/2010 Telephone [facility] Andrey Tamez MD Chronic Care Clinic [place] [address] Conference Provider [address] [place] [address] [place], [place] [phone] (Wo rk) [address] [phone] Social History Tobacco Use Types Packs/Day Years Used Date Smoking Tobacco: Former Cigarettes 0.5 16 Quit : 09/06/1978 Alcohol Use Standard Drinks/Week Comments Yes 10 (1 standard drink = 0.6 oz pure alcoh ol) A drink every 1-2 weeks. 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 Called back and is going to schedule first available appointment with Dr. Tamez. Pt was transferred to appointment line to schedule both fasting labs and appointment with Dr. Lizeth Junior MA Telephone Encounter - Chano Bhaktau - 12/12/2010 7:38 AM CDT LMOV for pt to call us back and letter mail today. Telephone Encounter - BhaktaChanou - 12/11/2010 7:54 AM CDT LMOV on pt's mobile phone to give us a call back. Telephone Encounter - Mick Bhakta - 12/10/2010 3:48 PM CDT LMOV for pt to give us a call back. Telephone Encounter - Mick Bhakta - 12/10/2010 1:27 PM CDT Met in consultation for: Diabetes Mellitus Parameters Addressed: A1C Recommended follow-up: PCP Considerations: fasting labs few days before seeing PCP Future appt/Call to schedule--see above and documented in this encounter Plan of Treatment Not on filedocumented as of this encounter Visit Diagnoses Diagnosis CAD (coronary artery disease) Coronary atherosclerosis of unspecified type of vessel, [place] or graft Type 2 diabetes, HbA1C goal < 8% (H) Type II or unspecified type diabetes vijaya litus without mention of complication, not stated as uncontrolled documented in this encounter Care Teams Identification And Records Commander Relationship Specialty Start Date End Date Andrey Tamez MD PCP - General 03/26/09 documented as of this encounter
--- OUTSIDE RECORDS SUMMARY | 2022-07-09 12:40 | XMS_ITS | Encounter Summary ---
:1945 Author Organization [facility] Address [address] [place] [address] Care Team Providers Name Role Phone Andrey Tamez MD Primary Care Provider Reason for Visit Auth/Cert - Closed Specialty Diagnoses / Procedures Referred By Contact Refer red To Contact Gastroenterology Diagnoses screening colonosopy Endoscopy Procedures COLONOSCOPY [address] [place] [address] Phone: Fax: Referral ID Status Reason Start Date Expiration Date Visits Requ ested Visits Authorized [id number] Closed 10/06/2011 04/03/2012 1 1 Encounter Details Date Type Department Care Team Description 10/26/2011 Surgery [facility] Endoscopy Nicolas Nuno MD Colonoscopy [facility] [address] [facility] 303 [place] [address] [place] [address] [phone] (Wo rk) Surgery Details Date/Time Status Location OR Service Patient Class Case Case Trauma Class Type Case? 10/26/11 Posted GI GI C Gastroenterology Outpatient 10:00 AM Panel 1 Procedure LRB Anes Op Region Wound Class Commen ts Colonoscopy N/A Conscious Sedation Rectum II-Clean Contami nated Colonoscopy Surgeon Surgeon Role Service Panel Nicolas Cook MD Primary Gastroenterology 1 Special Needs Referring: [facility] BD letter documented in this encounter Social History Tobacco Use Types Packs/Day Years Used Date Smoking Tobacco: Former Cigarettes 0.5 16 Quit : 09/06/1978 Smokeless Tobacco: Never Alcohol Use Standard Drinks/Week Comments Yes 10 (1 standard drink = 0.6 oz pure alcoh ol) A drink every 1-2 weeks. 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 Last Filed Vital Signs Vital Sign Reading Time Taken Comments Blood Pressure 130/82 10/26/2011 10:30 AM ACCESS REPRESENTATIVE Pulse - - Temperature - - Respiratory Rate 16 10/26/2011 10:25 AM ACCESS REPRESENTATIVE Oxygen Saturation 91% 10/26/2011 10:30 AM ACCESS REPRESENTATIVE Inhaled Oxygen Concentration - - Weight 80.3 kg (177 lb) 10/26/2011 9:55 AM ACCESS REPRESENTATIVE Height 177.8 cm (5' 10) 10/26/2011 9:55 AM ACCESS REPRESENTATIVE Body Mass Index 25.4 10/26/2011 9:55 AM ACCESS REPRESENTATIVE documented in this encounter Medications at Time [...] 10/26/2011 10:49 AM CST See Provation note SS REPRESENTATIVE documented in this encounter Plan of Treatment Not on filedocumented as of this encounter Procedures Procedure Name Priority Date/Time Associated Diagnosis Comme nts COLONOSCOPY 10/26/2011 10:03 AM ACCESS REPRESENTATIVE screening Special Needs Referring: [facility] guadalupe guaman COLONOSCOPY Routine 10/26/2011 9:59 AM ACCESS REPRESENTATIVE Resul ts for this procedure are in the results section . documented in this encounter Results COLONOSCOPY (10/26/2011 9:59 AM ACCESS REPRESENTATIVE) [facility] Method Time Signature COLONOSCOPY [facility] RAD IOLOGY RESULTS Patient Name: Rodolfo Quevedo [...] for the entire viewing portion of t he exam. Note Initiated On: 10/26/2011 9:59:27 AM Scope Withdrawal Time: 0 hours 7 minutes 3 seconds Total Procedure Duration: 0 hours 11 minutes 28 seconds Specimen (Source) Anatomical Collection Method Collection Time Re ceived Time Location / / Volume Laterality 10/26/2011 9:59 AM ACCESS REPRESENTATIVE Andrey Tamez MD PROCEDURES Performing Organization Address City/State/ZIP Code Phon e Number RADIOLOGY RESULTS documented in this encounter Visit Diagnoses Not on filedocumented in this encounter Administered Medications Inactive Administered Medications - up to 3 most recent administrations Medication Order MAR Action Action Date Dose Rate Site fentanyl (SUBLIMAZE) injection Given 10/26/2011 10:29 AM ACCESS REPRESENTATIVE 100 mcg PRN, moderate to severe pain, Starting on 10/26/11 at 1029, Intra-procedure midazolam (VERSED) injection Given 10/26/2011 10:29 AM ACCESS REPRESENTATIVE 2 mg PRN, anxiety, Starting on 10/26/11 at 1029, Intra-procedure documented in this encounter Active and Recently Administered Medications Times are shown in ACCESS REPRESENTATIVE. PRN Medication Order 10/24/2011 10/25/2011 10/26/2011 fentanyl (SUBLIMAZE) injection (CANCELED) 1029 (Given - Provider: Lina Pablo, RN) PRN, moderate to severe pain, Starting 10/26/11 at 1029, Intr a-procedure midazolam (VERSED) injection (CANCELED) 1029 (Given - Provider: Lina Pablo RN) PRN, anxiety, Starting 10/26/11 at 1029, Intra-procedure documented in this encounter Care Teams Identifier Horse Relationship Specialty Start Date End Date Andrey Tamez MD PCP - General 03/26/09 documented as of this encounter
--- OUTSIDE RECORDS SUMMARY | 2022-07-09 12:40 | XMS_ITS | Encounter Summary ---
:1945 Author Organization [facility] Address [address] [place] [address] Care Team Providers Name Role Phone Andrey Tamez MD Primary Care Provider Andrey Tamez MD Unavailable Andrey Tamez MD Unavailable Encounter Details Date Type Department Care Team Description 05/24/2013 E-Visit [facility] Andrey Tamez MD Salivary duct calculi Clinic [place] [address] (Primary Dx) [address] [place] [address] [place] [address] [place], [place] [phone] (Wo rk) [address] [phone] Social History Tobacco Use Types Packs/Day Years Used Date Smoking Tobacco: Former Cigarettes 0.5 16 Quit : 09/06/1978 Smokeless Tobacco: Never Alcohol Use Standard Drinks/Week Comments Yes 10 (1 standard drink = 0.6 oz pure alcoh ol) A drink every 1-2 weeks. 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 [place]. Called to Pharmacy. GAURAV Mg documented in this encounter Plan of Treatment Not on filedocumented as of this encounter Visit Diagnoses Diagnosis Salivary duct calculi - Primary Sialolithiasis documented in this encounter Care Teams Internal Review And Audit Compliance Relationship Specialty Start Date End Date Andrey Tamez MD PCP - General 03/26/09 Andrey Tamez MD PCP - Assigned PCP 09/11/12 11/08/18 [address] [place] [address] Andrey Tamez MD Assigned PCP 09/11/12 09/07/20 [address] [place] [address] documented as of this encounter
--- OUTSIDE RECORDS SUMMARY | 2022-07-09 12:40 | XMS_ITS | Encounter Summary ---
:1945 Author Organization [facility] Address [address] [place] [address] Care Team Providers Name Role Phone Andrey Tamez MD Primary Care Provider Reason for Visit Reason Onset Date Comments Refill Request 06/08/2011 Ramipril, Metoprolol , Vytorin and Plavix Encounter Details Date Type Department Care Team Description 06/08/2011 Refill [facility] Andrey Tamez MD Refill Request Clinic [place] [address] (Ramipril, Metoprolol, [address] [place] [address] Vytorin and Plavix) [place] [address] [place], [place] [phone] (Wo rk) [address] [phone] Social History Tobacco Use Types Packs/Day Years Used Date Smoking Tobacco: Former Cigarettes 0.5 16 Quit : 09/06/1978 Alcohol Use Standard Drinks/Week Comments Yes 10 (1 standard drink = 0.6 oz pure alcoh ol) A drink every 1-2 weeks. 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 CHOL 115 134 ??? HDL 34* 37* ??? LDL 62 75 ??? TRIG 98 112 ??? CHOLHDLRATIO 3.4 3.6 ALT 20 02/12/2011 Refill authorized per SO procotol Telephone Encounter - Lizeth Gonsales - 06/08/2011 1:02 PM CDT Received faxed RX request for: Ramipril=last ordered 06/10/10 Metoprolol=last ordered 02/19/11 Vytorin=last ordered 06/10/10 Plavix=last ordered 06/10/10 MEL=02/19/11 documented in this encounter Plan of Treatment Not on filedocumented as of this encounter Visit Diagnoses Diagnosis TIA (transient ischaemic attack) Unspecified transient cerebral ischemia CAD (coronary artery disease) Coronary atherosclerosis of unspecified type of vessel, [place] or graft Unspecified essential hypertension Other and unspecified hyperlipidemia documented in this encounter Care Teams Dental Ceramist Assistant Relationship Specialty Start Date End Date Andrey Tamez MD PCP - General 03/26/09 documented as of this encounter
--- OUTSIDE RECORDS SUMMARY | 2022-07-09 12:40 | XMS_ITS | Encounter Summary ---
:1945 Author Organization [place] Address [address] [place] [address] Care Team Providers Name Role Phone Andrey Tamez MD Primary Care Provider Encounter Details Date Type Department Care Team Description 03/23/2012 Orders Only [facility] Oth er and unspecified hyperlipidemia; [place] Labor[facility] Type 2 diabetes, HbA1C goal < 8% (H) [address] [place] [address] Social History Tobacco Use Types Packs/Day Years Used Date Smoking Tobacco: Former Cigarettes 0.5 16 Quit : 09/06/1978 Smokeless Tobacco: Never Alcohol Use Standard Drinks/Week Comments Yes 10 (1 standard drink = 0.6 oz pure alcoh ol) A drink every 1-2 weeks. 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 LIPID REFLEX TO Routine 03/23/2012 8:49 Other and unspecified Results for this DIRECT LDL PANEL AM CDT hyperlipidemia procedure are in the results section. HEMOGLOBIN A1C Routine 03/23/2012 8:49 Type 2 diabetes, HbA1C Results for this AM CDT goal < 8% (H) procedure are in the results section. COMPREHENSIVE Routine 03/23/2012 8:49 Type 2 diabetes, HbA1C R esults for this METABOLIC PANEL AM CDT goal < 8% (H) procedure a re in the results section. documented in this encounter Results Microalbumin quantitative random urine (03/23/2012 8:50 AM CDT) Component Value Ref Test Analysis Performed At [facility] gist Range Method Time Signature Creatinine 106 mg/dL [facility] Urine [facility] Albumin Urine <5 mg/L [facility] mg/L Urine Microalbumin lowest re portable value has been changed from 2 mg/L to 5 [facility] mg/L due to a methodology change on December. [facility] Albumin Urine Unable to 0 - 17 [facility] mg/g Cr calculate mg/g Cr [facility] Specimen Anatomical Collection Method Collection Time Receive d Time (Source) Location / / Volume Laterality Urine specimen 03/23/2012 8:50 AM 012 8:55 (specimen) CDT AM CDT Andrey Tamez MD LAB - URINE ORDERABLES Performing Organization Address City/[facility]/ZIP Code Phon e Number [phone] [place] [address] LABS (ABNORMAL) Hemoglobin A1c (03/23/2012 8:49 AM CDT) athologist Signature Hemoglobin A1C 7.7 (H) 4.3 - 6.0 [facility] Specimen Anatomical Collection Method Collection Time Receive d Time (Source) Location / / Volume Laterality Blood specimen 03/23/2012 8:49 AM 012 8:54 (specimen) CDT AM CDT Andrey Tamez MD LAB - BLOOD ORDERABLES Performing Organization Address City/State/ZIP Code Phon e Number [facility] [address] [place], [place] [address] [address] [facility] LAB (ABNORMAL) Comprehensive metabolic panel (03/23/2012 8:49 AM CDT) P athologist Signature Sodium 139 133 - 144 [facility] mmol/L [facility] Potassium 4.6 3.4 - 5.3 [facility] mmol/L [facility] Chloride 102 94 - 109 [place] mmol/L [facility] Carbon Dioxide 28 20 - 32 [facility] mmol/L [facility] Anion Gap 9 6 - 17 [facility] mmol/L [facility] Glucose 155 (H) 60 - 99 [facility] mg/dL [facility] Urea Nitrogen 20 7 - 30 [facility] mg/dL [facility] Creatinine 1.07 0.66 - [facility] 1.25 mg/dL [facility] GFR Estimate 69 >60 [facility] mL/min/1.7 [facility] m2 LAB GFR Estimate If 84 >60 [facility] Black mL/min/1.7 [facility] m2 LAB Calcium 8.8 8.5 - 10.4 [facility] mg/dL [facility] Bilirubin Total 0.9 0.2 - 1.3 [facility] mg/dL [facility] Albumin 4.0 3.3 - 4.9 [facility] g/dL [facility] Comment: Reference range changed on 05/08. Protein Total 6.4 (L) 6.8 - 8.8 g/dL [facility] Comment: As of 08, reference range reflects plasma specimen type. Alkaline Phosphatase 70 40 - 150 U/L [facility] ALT 21 0 - 70 U/L [facility] AST 20 0 - 45 U/L [facility] Specimen Anatomical Collection Method Collection Time Receive d Time (Source) Location / / Volume Laterality Blood specimen 03/23/2012 8:49 AM 012 8:54 (specimen) CDT AM CDT Andrey Tamez MD LAB - BLOOD ORDERABLES Performing Organization Address City/State/ZIP Code Phon e Number [facility] [address] [place] [phone] [facility] LAB (ABNORMAL) Lipid panel reflex to direct LDL (03/23/2012 8:49 AM CDT) athologist Signature Cholesterol 133 0 - 200 [facility] mg/dL CLINIC LAB Comment: LDL Cholesterol is the primary guide to therapy. The NCEP recommends further evaluation of: patients with cholesterol greater than 200 mg/dL if additional risk facto rs are present, cholesterol greater than 240 mg/dL, triglycerides greater than 1 50 mg/dL, or HDL less than 40 mg/dL. Triglycerides 123 0 - 150 mg/dL [facility] HDL Cholesterol 34 (L) 40 - 110 mg/dL [facility] LDL Cholesterol Calculated 74 0 - 129 mg/dL [facility] Comment: LDL Cholesterol is the primary guide to therapy: LDL-cholesterol goal in high risk patients is <100 mg/dL and in very high risk patients is <70 mg/dL. VLDL-Cholesterol 25 0 - 30 mg/dL [facility] Cholesterol/HDL Ratio 3.9 0.0 - 5.0 [facility] Specimen Anatomical Collection Method Collection Time Receive d Time (Source) Location / / Volume Laterality Blood specimen 03/23/2012 8:49 AM 012 8:54 (specimen) CDT AM CDT Andrey Tamez MD LAB - BLOOD ORDERABLES Performing Organization Address City/State/ZIP Code Phon e Number [address] [address] [facility] documented in this encounter Visit Diagnoses Diagnosis Other and unspecified hyperlipidemia Type 2 diabetes, HbA1C goal < 8% (H) Type II or unspecified type diabetes vijaya litus without mention of complication, not stated as uncontrolled documented in this encounter Care Teams Subcontracts Manager Relationship Specialty Start Date End Date Andrey Tamez MD PCP - General 03/26/09 documented as of this encounter
--- OUTSIDE RECORDS SUMMARY | 2022-07-09 12:40 | XMS_ITS | Encounter Summary ---
:1945 Author Organization [place] Address [address] [place] [address] Care Team Providers Name Role Phone Andrey Tamez MD Primary Care Provider Reason for Visit Reason Onset Date Comments Chronic Disease Management 03/19/2011 do want post visit BP calls Encounter Details Date Type Department Care Team Description 03/19/2011 Telephone [facility] Manager Statistics Andrey Tamez MD Chronic Disease [address] Management (do want [place], [place] [address] post visit BP calls) [phone] [place], [place] [id number] (Wo rk) Social History Tobacco Use Types Packs/Day Years Used Date Smoking Tobacco: Former Cigarettes 0.5 16 Quit : 09/06/1978 Alcohol Use Standard Drinks/Week Comments Yes 10 (1 standard drink = 0.6 oz pure alcoh ol) A drink every 1-2 weeks. 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 Marry Cardenas RN Telephone Encounter - Gayatri Cardenas - 03/25/2011 10:51 AM CDT To order a post call only type in msg .[email or web address] To initiate system of visits with HTN nurse--under orders type HTN nurse and F2 thru questions. See me if this does not work. Marry Cardenas RN Telephone Encounter - Andrey Tamez - 03/24/2011 8:14 PM CDT Yes. Will need assistance in placing order. Telephone Encounter - Gayatri Cardenas - 03/19/2011 8:44 AM CDT Review of chart from roster shows BP above goal for DM. Would you like to order post visit calls (use dot phrase)? Thanks, Marry Cardenas RN documented in this encounter Plan of Treatment Not on filedocumented as of this encounter Visit Diagnoses Not on filedocumented in this encounter Care Teams Horticultural Specialty Grower Relationship Specialty Start Date End Date Andrey Tamez MD PCP - General 03/26/09 documented as of this encounter
--- OUTSIDE RECORDS SUMMARY | 2022-07-09 12:40 | XMS_ITS | Encounter Summary ---
:1945 Author Organization [place] Address [address] [place] [address] Care Team Providers Name Role Phone Andrey Tamez MD Primary Care Provider Reason for Visit Reason Onset Date Comments Refill Request 05/13/2010 plavix, vytorin, met oprolol Encounter Details Date Type Department Care Team Description 05/13/2010 Refill [facility] Andrey Tamez MD Refill Request (plavix, [facility] [place] [address] vytorin, metoprolol) [address] [place], [place] [phone] Social History Tobacco Use Types Packs/Day Years Used Date Smoking Tobacco: Former Cigarettes 0.5 16 Quit : 09/06/1978 Alcohol Use Standard Drinks/Week Comments Yes 10 (1 standard drink = 0.6 oz pure alcoh ol) 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 Miscellaneous Notes Telephone Encounter - [place] - 05/13/2010 9:21 AM CDT last OV 03/13/09 BP 116/76 last labs 03/13/09 LDL 77 has appointmient scheduled 06/10/10 Authorized refills per [facility] protocol documented in this encounter Plan of Treatment Not on filedocumented as of this encounter Visit Diagnoses Diagnosis Other and unspecified hyperlipidemia CAD (coronary artery disease) Coronary atherosclerosis of unspecified type of vessel, [place] or graft TIA (transient ischaemic attack) Unspecified transient cerebral ischemia documented in this encounter Care Teams Professor Of Latin American Studies Relationship Specialty Start Date End Date Andrey Tamez MD PCP - General 03/26/09 documented as of this encounter
--- OUTSIDE RECORDS SUMMARY | 2022-07-09 12:40 | XMS_ITS | Encounter Summary ---
:1945 Author Organization [place] Address [address] [place] [address] Care Team Providers Name Role Phone Andrey Tamez MD Primary Care Provider Andrey Tamez MD Unavailable Andrey Tamez MD Unavailable Encounter Details Date Type Department Care Team Description 06/29/2013 Orders Only [facility] Typ e 2 diabetes, HbA1C [place] [facility] goal < 8% (H) [address] [place] [address] Social History Tobacco Use Types Packs/Day Years Used Date Smoking Tobacco: Former Cigarettes 0.5 16 Quit : 09/06/1978 Smokeless Tobacco: Never Alcohol Use Standard Drinks/Week Comments Yes 10 (1 standard drink = 0.6 oz pure alcoh ol) A drink every 1-2 weeks. 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 HEMOGLOBIN A1C Routine 06/29/2013 9:07 AM Type 2 diabetes, Res ults for this CDT HbA1C goal < 8% (H) procedur e are in the results section. COMPREHENSIVE Routine 06/29/2013 9:07 AM Type 2 diabetes, Resu lts for this METABOLIC PANEL CDT HbA1C goal < 8% (H) proce dure are in the results section. documented in this encounter Results (ABNORMAL) Lipid panel reflex to direct LDL (06/29/2013 9:07 AM CDT) P athologist Signature Cholesterol 147 0 - 200 [facility] mg/dL [facility] Comment: LDL Cholesterol is the primary guide to therapy. The NCEP recommends further evaluation of: patients with cholesterol greater than 200 mg/dL if additional risk facto rs are present, cholesterol greater than 240 mg/dL, triglycerides greater than 1 50 mg/dL, or HDL less than 40 mg/dL. Triglycerides 156 (H) 0 - 150 mg/dL [facility] [place] HDL Cholesterol 38 (L) 40 - 110 mg/dL [facility] LDL Cholesterol Calculated 78 0 - 129 mg/dL [facility] Comment: LDL Cholesterol is the primary guide to therapy: LDL-cholesterol goal in high risk patients is <100 mg/dL and in very high risk patients is <70 mg/dL. VLDL-Cholesterol 31 (H) 0 - 30 mg/dL [facility] Cholesterol/HDL Ratio 3.8 0.0 - 5.0 [facility] Specimen Anatomical Collection Method Collection Time Receive d Time (Source) Location / / Volume Laterality Blood specimen 06/29/2013 9:07 AM 013 9:12 (specimen) CDT AM CDT Andrey Tamez MD LAB - BLOOD ORDERABLES Performing Organization Address City/[facility]/ZIP Code Phon e Number [address] [id number] (ABNORMAL) Hemoglobin A1c (06/29/2013 9:07 AM CDT) Analysis Performed At Patho logist Time Signature Hemoglobin A1C 7.1 (H) 4.3 - 6.0 [facility] Specimen Anatomical Collection Method Collection Time Receive d Time (Source) Location / / Volume Laterality Blood specimen 06/29/2013 9:07 AM 013 9:12 (specimen) CDT AM CDT Andrey Tamez MD LAB - BLOOD ORDERABLES Performing Organization Address City/[facility] Phon e Number [facility] [address] [place], [place] [address] [address] (ABNORMAL) Comprehensive metabolic panel (06/29/2013 9:07 AM CDT) P athologist Signature Sodium 134 133 - 144 [facility] mmol/L [facility] Potassium 4.5 3.4 - 5.3 [facility] mmol/L [facility] Chloride 100 94 - 109 [facility] mmol/L [facility] Carbon Dioxide 25 20 - 32 [facility] mmol/L [facility] Anion Gap 10 6 - 17 [facility] mmol/L [facility] Glucose 152 (H) 60 - 99 [facility] mg/dL [facility] Comment: Fasting specimen Urea Nitrogen 25 7 - 30 mg/dL [facility] Creatinine 1.13 0.66 - 1.25 mg/dL [facility] GFR Estimate 65 >60 mL/min/1.7m2 [facility] [place] GFR Estimate If Black 78 >60 mL/min/1.7m2 [facility] Calcium 9.1 8.5 - 10.4 mg/dL [facility] Bilirubin Total 0.5 0.2 - 1.3 mg/dL [facility] Albumin 3.9 3.3 - 4.9 g/dL [facility] Comment: Reference range changed on 05/08. Protein Total 6.6 (L) 6.8 - 8.8 g/dL [facility] Comment: As of 08, reference range reflects plasma specimen type. Alkaline Phosphatase 80 40 - 150 U/L [facility] ALT 37 0 - 70 U/L [facility] AST 21 0 - 45 U/L [facility] Specimen Anatomical Collection Method Collection Time Receive d Time (Source) Location / / Volume Laterality Blood specimen 06/29/2013 9:07 AM 013 9:12 (specimen) CDT AM CDT Andrey Tamez MD LAB - BLOOD ORDERABLES Performing Organization Address City/State/ZIP Code Phon e Number [facility] [address] [place] [address] documented in this encounter Visit Diagnoses Diagnosis Type 2 diabetes, HbA1C goal < 8% (H) Type II or unspecified type diabetes vijaya litus without mention of complication, not stated as uncontrolled documented in this encounter Care Teams Air Analyst Relationship Specialty Start Date End Date Andrey Tamez MD PCP - General 03/26/09 Andrey Tamez MD PCP - Assigned PCP 09/11/12 11/08/18 [address] [place], [place] [address] Andrey Tamez MD Assigned PCP 09/11/12 09/07/20 [address] [place], [place] [address] documented as of this encounter
--- OUTSIDE RECORDS SUMMARY | 2022-07-09 12:41 | XMS_ITS | Encounter Summary ---
:1945 Author Organization [place] Address [facility] [place] [address] Care Team Providers Name Role Phone Andrey Tamez MD Primary Care Provider Bailey Doran MD Primary Care Provider Encounter Details Date Type Department Care Team Description 04/13/2008 Historic Results [place] Scott Tiwari , Hospitalists [address] [place] [phone] Social History Tobacco Use Types Packs/Day Years Used Date Smoking Tobacco: Former Cigarettes 0.5 16 Quit : 09/06/1978 Alcohol Use Standard Drinks/Week Comments Yes 10 (1 standard drink = 0.6 oz pure alcoh ol) 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 LIPID PROFILE Routine 04/13/2008 11:02 AM Results for this CDT procedure are i n the results section. VITAMIN B12 Routine 04/13/2008 11:02 AM Results for this CDT procedure are i n the results section. HEMOGLOBIN A1C Routine 04/13/2008 8:10 AM Results for this CDT procedure are i n the results section. documented in this encounter Results (ABNORMAL) Glucose by meter (04/13/2008 12:04 PM CDT) P athologist Signature Glucose 153 (H) 60 - 99 [facility] mg/dL Specimen Anatomical Collection Method Collection Time Receive d Time (Source) Location / / Volume Laterality 04/13/2008 12:04 04/16/2008 6:35 PM CDT AM CDT Scott Loja MD LAB - BEAKER POCT Performing Organization Address City/State/ZIP Code Phon e Number [facility] (ABNORMAL) Lipid panel (04/13/2008 11:02 AM CDT) P athologist Signature Cholesterol 146 0 - 200 [facility] mg/dL Comment: LDL Cholesterol is the primary guide to therapy: LDL-cholesterol goal in high risk patients is <100 mg/dL and in very high risk patients is <70 mg/dL. The NCEP recommends further evaluation of: patients with cholesterol <200 mg/dL if additionalrisk factors are present, cholesterol >240 mg/dL, triglycerides >150 mg/dL, or HDL <40 mg/dL. Triglycerides 139 0 - 150 mg/dL [facility] HDL Cholesterol 37 (L) 40 - 110 mg/dL [facility] LDL Cholesterol Calculated 81 0 - 129 mg/dL [facility] VLDL-Cholesterol 28 0 - 30 mg/dL [facility] Cholesterol/HDL Ratio 3.9 0.0 - 5.0 [facility] Specimen Anatomical Collection Method Collection Time Receive d Time (Source) Location / / Volume Laterality 04/13/2008 11:02 04/13/2008 9:31 AM CDT AM CDT Thelma Parekh MD LAB - BLOOD ORDERABLES Performing Organization Address City/State/ZIP Code Phon e Number [facility] Vitamin B12 (04/13/2008 11:02 AM CDT) P athologist Signature Vitamin B12 351 >210 pg/mL [facility] Comment: Interp: [phone] = Normal Specimen Anatomical Collection Method Collection Time Receive d Time (Source) Location / / Volume Laterality 04/13/2008 11:02 04/13/2008 9:33 AM CDT AM CDT Thelma Parekh MD LAB - BLOOD ORDERABLES Performing Organization Address City/State/ZIP Code Phon e Number [facility] (ABNORMAL) Hemoglobin A1c (04/13/2008 8:10 AM CDT) P athologist Signature Hemoglobin A1C 7.1 (H) 4.3 - 6.0 [facility] % Specimen Anatomical Collection Method Collection Time Receive d Time (Source) Location / / Volume Laterality 04/13/2008 8:10 AM 8 7:48 CDT PM CDT Scott Loja MD LAB - BLOOD ORDERABLES Performing Organization Address City/State/ZIP Code Phon e Number [facility] documented in this encounter Visit Diagnoses Not on filedocumented in this encounter Care Teams It Support Engineer Relationship Specialty Start Date End Date Andrey Tamez MD PCP - General 03/26/09 Bailey Doran MD PCP - General 09/20/00 03/25/09 [address] [facility] [address] [place] [address] documented as of this encounter
--- OUTSIDE RECORDS SUMMARY | 2022-07-09 12:41 | XMS_ITS | Encounter Summary ---
:1945 Author Organization [facility] Address [address] [place] [address] Care Team Providers Name Role Phone Bailey Doran MD Primary Care Provider Reason for Visit Reason Comments Establish Care Encounter Details Date Type Department Care Team Description 03/13/2009 Office Visit [facility] Andrey Tamez MD TIA (Transient Ischaemic Attack); [facility] [place] [address] CAD (Coronary Artery Disease ); [address] Other and Unspecified Hyperlipidemia; [place], [place] DIABETES UNCOMPL ADULT-TYPE II; [place] [address] Paresthesias, Distal [address] [phone] Social History Tobacco Use Types Packs/Day Years Used Date Smoking Tobacco: Former Cigarettes 0.5 16 Quit : 09/06/1978 Alcohol Use Standard Drinks/Week Comments Yes 10 (1 standard drink = 0.6 oz pure alcoh ol) 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 Last Filed Vital Signs Vital Sign Reading Time Taken Comments Blood Pressure 116/76 03/13/2009 9:42 AM CDT Pulse 60 03/13/2009 9:42 AM CDT Temperature 36.4 ??C (97.6 ??F) 03/13/2009 9:42 AM CDT Respiratory Rate - - Oxygen Saturation - - Inhaled Oxygen Concentration - - Weight 83.9 kg (185 lb) 03/13/2009 9:42 AM CDT Height 177.8 cm (5' 10) 03/13/2009 9:42 AM CDT Body Mass Index 26.54 03/13/2009 9:42 AM CDT documented in this encounter Progress Notes Andrey Tamez Óscar - 03/13/2009 9:49 PM CDT Rodolfo Quevedo presents new to this clinic for f/u of prior HI, coronary artery disease, hyperlipidemia, elevated glucoses previously diagnosed as diabetes mellitus, and abnormal sensation on the soles of his feet. The patient had an HI about four years ago, treated with stenting. He continues to f/u with Dr Foreman. He suffered a minor stroke or TIA about a year ago, following with Dr Thomas. His lisinopril was changed to Altace. We reviewed results of the HOPE trial which may have prompted the change. We agreed to check his lipids. He reports being diagnosed with diabetes earlier this decade, but stopped checking glucoses when they were consistently running below 120. He has noted a sensitive sensation on the soles of his feet, almost a numbness or tingling. Past medical, family and social histories as well as medications reviewed and updated as needed. REVIEW OF SYSTEMS are as listed above or negative for the following: Constitutional, respiratory, cardiovascular, endocrine and neurologic systems. OBJECTIVE: Well-appearing older male in no distress. BP 116/76 Pulse 60 Temp (Src) 97.6 ??F (36.4 ??C) (Oral) Ht 5' 10 (1.778 m) Wt 185 lb (83.915 kg) Neck: supple, no adenopathy, thyromegaly or masses. Chest: Clear to auscultation and percussion. Cardiac: Normal to precordial auscultation. No jugular venous distention. Extremities: Normal soft touch sensation on the dorsal feet, perhaps slightly reduced on the plantarsurfaces. No ulcerations or lesions. Lower extremities otherwise normal to inspection and palpation. ASSESSMENT/PLAN: 435.9AN TIA (Transient Ischaemic Attack) Comment: Stable. Continue current meds. Plan: PLAVIX 75 MG OR TABS, RAMIPRIL 10 MG OR CAPS, PROSTATE SPEC ANTIGEN,SCREEN, CBC WITH PLATELETS 414.00AE CAD (Coronary Artery Disease) Comment: Stable. No angina or CHF. Continue current meds. Plan: METOPROLOL TARTRATE 25 MG OR TABS, VYTORIN 10-20 MG OR TABS, PROSTATE SPEC ANTIGEN,SCREEN, CBC WITH PLATELETS 272.4 Other and Unspecified Hyperlipidemia Comment: Update lipids. Plan: VYTORIN 10-20 MG OR TABS, A.M.A. BASIC METABOLIC PANEL, A.M.A. LIPID PANEL, ALANINE AMINO (ALT) (SGPT), HEMOGLOBIN A1C, AST, TSH W/FREE T4 REFLEX, PROSTATE SPEC ANTIGEN,SCREEN, CBC WITH PLATELETS 250.00 DIABETES UNCOMPL ADULT-TYPE II Comment: Update A1c. Plan: A.M.A. BASIC METABOLIC PANEL, A.M.A. LIPID PANEL, ALANINE AMINO (ALT) (SGPT), HEMOGLOBIN A1C, AST, TSH W/FREE T4 REFLEX, VITAMIN B12, SERUM, FOLATE, SERUM, PROSTATE SPEC ANTIGEN,SCREEN, CBC WITH PLATELETS 782.0FE Paresthesias, Distal Comment: R/o reversible cause of a peripheral neuropathy. Plan: PROSTATE SPEC ANTIGEN,SCREEN, CBC WITH PLATELETS documented in this encounter Nursing Notes 03/13/2009 9:30 AM CDT >> GRADY REED Wed Mar 13, 2009 9:44 AM Patient presents with: Establish Care Initial BP 116/76 Pulse 60 Temp (Src) 97.6 ??F (36.4 ??C) (Oral) Ht 5' 10 (1.778 m) Wt 185 lb (83.915 kg) Body mass index is 26.54 kg/(m^2). BP completed using cuff size: regular Signed by GAURAV Mg documented in this encounter Plan of Treatment Not on filedocumented as of this encounter Procedures Procedure Name Priority Date/Time Associated Diagnosis Comme nts CL AFF CBC WITH Routine 03/13/2009 11:20 TIA (Transient Result s for this PLATELETS AM CDT Ischaemic Attack ) procedure are in CAD (Coronary Artery the res ults Disease) section. Other and Unspecified Hyperlipidemia DIABETES UNCOMPL ADULT-TYPE II Paresthesias, Distal HCL PROSTATE SPEC Routine 03/13/2009 11:10 DIABETES UNCOMPL Re sults for this ANTIGEN,SCREEN AM CDT ADULT-TYPE II procedure are in Other and Unspecified the re sults Hyperlipidemia section. CAD (Coronary Artery Disease) TIA (Transient Ischaemic Attack ) Paresthesias, Distal HCL BASIC METABOLIC Routine 03/13/2009 11:06 DIABETES UNCOMPL Results for this PANEL AM CDT ADULT-TYPE II procedure are in Other and Unspecified the re sults Hyperlipidemia section. HCL TSH W/FREE T4 Routine 03/13/2009 11:06 DIABETES UNCOMPL Re sults for this REFLEX AM CDT ADULT-TYPE II procedure are in Other and Unspecified the re sults Hyperlipidemia section. HCL GLYCATED Routine 03/13/2009 11:06 DIABETES UNCOMPL Results for this HEMOGLOBIN AM CDT ADULT-TYPE II procedure are in Other and Unspecified the re sults Hyperlipidemia section. HCL ALT Routine 03/13/2009 11:06 DIABETES UNCOMPL Results for this AM CDT ADULT-TYPE II procedure are in Other and Unspecified the re sults Hyperlipidemia section. HCL AST Routine 03/13/2009 11:06 DIABETES UNCOMPL Results for this AM CDT ADULT-TYPE II procedure are in Other and Unspecified the re sults Hyperlipidemia section. HCL FOLIC ACID Routine 03/13/2009 11:06 DIABETES UNCOMPL Resul ts for this AM CDT ADULT-TYPE II procedure are in the results section. HCL VITAMIN B12 Routine 03/13/2009 11:06 DIABETES UNCOMPL Resu lts for this AM CDT ADULT-TYPE II procedure are in the results section. CL AFF A.M.A. LIPID Routine 03/13/2009 11:06 DIABETES UNCOMPL Results for this PANEL AM CDT ADULT-TYPE II procedure are in Other and Unspecified the re sults Hyperlipidemia section. documented in this encounter Results (ABNORMAL) CBC WITH PLATELETS (03/13/2009 11:20 AM CDT) Analysis Performed At Patho logist Time Signature WBC 6.2 4.0 - 11.0 [facility] 10e9/L [facility] RBC Count 4.75 4.4 - 5.9 [facility] 10e12/L [facility] Hemoglobin 15.7 13.3 - [facility] 17.7 g/dL [facility] Hematocrit 46.9 40.0 - [facility] 53.0 % [facility] MCV 99 78 - 100 [facility] fl [facility] MCH 33.1 (H) 26.5 - [facility] 33.0 pg [facility] MCHC 33.5 31.5 - [facility] 36.5 g/dL [facility] RDW 12.1 10.0 - [facility] 15.0 % [facility] Platelet Count 165 150 - 450 [place] 10e9/L [facility] Specimen Anatomical Collection Method Collection Time Receive d Time (Source) Location / / Volume Laterality 03/13/2009 11:20 03/13/2009 AM CDT 11:25 AM CDT Andrey Tamez MD LABORATORY Performing Organization Address City/State/ZIP Code Phon e Number [facility] [address] [place], [place] [address] [address] [facility] PROSTATE SPEC ANTIGEN,SCREEN (03/13/2009 11:10 AM CDT) athologist Signature PSA 1.66 0 - 4 ug/L [facility] Specimen Anatomical Collection Method Collection Time Receive d Time (Source) Location / / Volume Laterality 03/13/2009 11:10 03/13/2009 AM CDT 11:15 AM CDT Andrey Tamez MD LABORATORY Performing Organization Address City/State/ZIP Code Phon e Number [facility] [address] [place] [address] [facility] FOLATE, SERUM (03/13/2009 11:06 AM CDT) athologist Signature Folate 17.3 >3.3 ng/mL [facility] Comment: Interp: >5.4 ng/mL = Normal Specimen Anatomical Collection Method Collection Time Receive d Time (Source) Location / / Volume Laterality 03/13/2009 11:06 03/13/2009 AM CDT 11:11 AM CDT Andrey Tamez MD LABORATORY Performing Organization Address City/State/ZIP Code Phon e Number [facility] [address] [place] [address] [facility] VITAMIN B12, SERUM (03/13/2009 11:06 AM CDT) athologist Signature Vitamin B12 461 >210 pg/mL [facility] Comment: Interp: [phone] = Normal Specimen Anatomical Collection Method Collection Time Receive d Time (Source) Location / / Volume Laterality 03/13/2009 11:06 03/13/2009 AM CDT 11:11 AM CDT Andrey Tamez MD LABORATORY Performing Organization Address City/State/ZIP Code Phon e Number [facility] [address] [place] [address] [facility] TSH W/FREE T4 REFLEX (03/13/2009 11:06 AM CDT) P athologist Signature TSH 0.93 0.4 - 5.0 [place] [facility] mU/L [facility] Specimen Anatomical Collection Method Collection Time Receive d Time (Source) Location / / Volume Laterality 03/13/2009 11:06 03/13/2009 AM CDT 11:11 AM CDT Andrey Tamez MD LABORATORY Performing Organization Address City/State/ZIP Code Phon e Number [facility] [address] [place] [address] [facility] AST (03/13/2009 11:06 AM CDT) P athologist Signature AST 23 0 - 55 U/L [facility] Specimen Anatomical Collection Method Collection Time Receive d Time (Source) Location / / Volume Laterality 03/13/2009 11:06 03/13/2009 AM CDT 11:11 AM CDT Andrey Tamez MD LABORATORY Performing Organization Address City/State/ZIP Code Phon e Number [facility] [address] [place] [address] [facility] (ABNORMAL) HEMOGLOBIN A1C (03/13/2009 11:06 AM CDT) P athologist Signature Hemoglobin A1C 7.5 (H) 4.3 - 6.0 [facility] Specimen Anatomical Collection Method Collection Time Receive d Time (Source) Location / / Volume Laterality 03/13/2009 11:06 03/13/2009 AM CDT 11:11 AM CDT Andrey Tamez MD LABORATORY Performing Organization Address City/State/ZIP Code Phon e Number [facility] [address] [place], [place] [address] [address] [facility] ALANINE AMINO (ALT) (SGPT) (03/13/2009 11:06 AM CDT) athologist Signature ALT 24 0 - 70 U/L [facility] Specimen Anatomical Collection Method Collection Time Receive d Time (Source) Location / / Volume Laterality 03/13/2009 11:06 03/13/2009 AM CDT 11:11 AM CDT Andrey Tamez MD LABORATORY Performing Organization Address [facility] Code Phon e Number [address] [address] [phone] [facility] (ABNORMAL) A.M.A. LIPID PANEL (03/13/2009 11:06 AM CDT) athologist Signature Cholesterol 145 0 - 200 [facility] mg/dL CLINIC LAB Comment: LDL Cholesterol is the primary guide to therapy: LDL-cholesterol goal in high risk patients is <100 mg/dL and in very high risk patients is <70 mg/dL. The NCEP recommends further evaluation of: patients with cholesterol <200 mg/dL if additional risk factors are present, cholesterol >240 mg/dL, triglycerides >150 mg/dL, or HDL <40 mg/dL. Triglycerides 146 0 - 150 mg/dL [facility] HDL Cholesterol 39 (L) 40 - 110 mg/dL [facility] LDL Cholesterol Calculated 77 0 - 129 mg/dL [facility] Comment: LDL Cholesterol is the primary guide to therapy: LDL-cholesterol goal in high risk patients is <100 mg/dL and in very high risk patients is <70 mg/dL. VLDL-Cholesterol 29 0 - 30 mg/dL [facility] Cholesterol/HDL Ratio 3.8 0.0 - 5.0 [facility] Specimen Anatomical Collection Method Collection Time Receive d Time (Source) Location / / Volume Laterality 03/13/2009 11:06 03/13/2009 AM CDT 11:11 AM CDT Andrey Tamez MD LABORATORY Performing Organization Address City/[facility]/ZIP Code Phon e Number [facility] [address] [place] [address] [facility] (ABNORMAL) A.M.A. BASIC METABOLIC PANEL (03/13/2009 11:06 AM CDT) P athologist Signature Sodium 139 133 - 144 [place] mmol/L [facility] Potassium 4.1 3.4 - 5.3 [place] mmol/L [facility] Chloride 101 94 - 109 [place] mmol/L [facility] Carbon Dioxide 27 20 - 32 [place] mmol/L [facility] Anion Gap 11 6 - 17 [place] mmol/L [facility] Glucose 129 (H) 60 - 99 [place] mg/dL [facility] Urea Nitrogen 13 7 - 30 [place] mg/dL [facility] Creatinine 0.96 0.66 - [place] 1.25 mg/dL [facility] Comment: New IDMS-traceable calibration beginning 01/05/08 GFR Estimate 79 >60 mL/min/1.7m2 [place] [facility] GFR Estimate If Black >90 >60 mL/min/1.7m2 F [facility] Calcium 8.8 8.5 - 10.4 mg/dL [facility] Specimen Anatomical Collection Method Collection Time Receive d Time (Source) Location / / Volume Laterality 03/13/2009 11:06 03/13/2009 AM CDT 11:11 AM CDT Andrey Tamez MD LABORATORY Performing Organization Address City/State/ZIP Code Phon e Number [facility] [address] [place] [address] [facility] documented in this encounter Visit Diagnoses Diagnosis TIA (transient ischaemic attack) Unspecified transient cerebral ischemia CAD (coronary artery disease) Coronary atherosclerosis of unspecified type of vessel, cachil dehe or graft Other and unspecified hyperlipidemia DIABETES UNCOMPL ADULT-TYPE II Type II or unspecified type diabetes vijaya litus without mention of complication, not stated as uncontrolled Paresthesias, distal Disturbance of skin sensation documented in this encounter Care Teams Rn Progressive Care Relationship Specialty Start Date End Date Bailey Doran MD PCP - General 09/20/00 03/25/[address], [address] [place] [address] documented as of this encounter
--- OUTSIDE RECORDS SUMMARY | 2022-07-09 12:41 | XMS_ITS | Encounter Summary ---
:1945 Author Organization [facility] Address [address] [place] [address] Care Team Providers Name Role Phone Andrey Tamez MD Primary Care Provider Reason for Visit Reason Onset Date Comments Results 03/26/2009 lab Encounter Details Date Type Department Care Team Description 03/26/2009 Telephone [facility] Andrey Tamez MD Results (lab) [place] [address] [facility] [address] [place] [address] [place] [address] [phone] Social History Tobacco Use Types Packs/Day Years Used Date Smoking Tobacco: Former Cigarettes 0.5 16 Quit : 09/06/1978 Alcohol Use Standard Drinks/Week Comments Yes 10 (1 standard drink = 0.6 oz pure alcoh ol) 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 Telephone Encounter - Razia Hurtado - 03/26/2009 4:00 PM CDT Pt calling requesting lab results from 03/13/09. Thank you. documented in this encounter Plan of Treatment Not on filedocumented as of this encounter Visit Diagnoses Not on filedocumented in this encounter Care Teams Metal Can Inspector Relationship Specialty Start Date End Date Andrey Tamez MD PCP - General 03/26/09 documented as of this encounter
--- OUTSIDE RECORDS SUMMARY | 2022-07-09 12:41 | XMS_ITS | Encounter Summary ---
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 - Directive Location: Copy to be obtained (see comments) - Comments: Unsure about advance health care directive but if not, named , sandrine Quevedo, as surrogate. - Would you like to Yes. AD booklet given receive information about Advanced Directives? Valuables - Valuables Yes - Type of Valuables Glasses Health and Illness History - Reason for Acute stroke admission/chief complaint as stated by patient Allergies ?? No Known Allergies;Active Substance Use - Tobacco Use None - Caffeine Use Yes - Caffeine Type Coffee; Tea - Caffeine Amount < 3 cups/day - History of Alcohol Yes Use - Alcohol Type Beer - Alcohol Frequency Two to four times a month - History of street No drug/inhalant/ medication abuse Review of Systems - Cardiac Problems Yes - Cardiac Hypertension; Elevated cholesterol; heart attack Conditions/Symptoms in 2004 - Pulmonary Problems No - Peripheral Vascular No Problems - Neuro Muscular No Problems - ENT Problems No - GI Problems No - Date of last bowel Date of last BM, 04/12/08 movement - Problems No - Immune Problems No - Influenza vaccine N/A; Not currently flu season (12/05-06/05) - Pneumococcal Vaccine Never immunized - Pneumococcal vaccine None of the above indications (offer year round) indications: check all that apply - Endocrine Problems Yes - Endocrine Diabetes: Type 2; not on any medications, taken Conditions/Symptoms off off medications due to good control. - Mental Health No Problems Cognitive Perceptual - Alterations in No Sensation - Vision Problems No - Use of Sensory Yes Assistive Devices - Vision Assistive Glasses Devices - Reading Problems No - Speech/Communication No Problems - Changes in thought No Process/Behavior - Factors influencing No factors identified readiness to learn - Factors that impact No barriers identified ability to learn - Learning Preferences Prefers individual instruction - Cultural Learning None Considerations - Developmental None Learning Considerations - Sikhism Learning None Considerations Activity-Exercise/Self Care - Ambulation 0 - Independent with ambulation - Transferring 0 - Independent with transfers - Toileting 0- Independent with toileting - Bathing 0- Independent with bathing - Dressing 0- Independent with dressing - Eating 0- Independent with eating - Swallowing hard to swallow certain foods. - Fall history within No history of falls last six months - Which of the above None functional risks had a recent onset or change? - Lives with Spouse - Describe living House environment Nutrition/Metabolic - Nutrition Risk Screen none - Perception of Good nutritional health Sleep/Relaxation - Problems Sleeping Yes - Problems Trouble falling asleep; Awakens in the middle of the night Role Relationships - QUESTION TO PATIENT: No. Are you now or have you ever been in a relationship where you have been abused physically, emotionally or sexually? - NURSE OBSERVATION: Is No there reasonable cause to believe the patient has been abused, assaulted, is self abusive, neglected or exploited? Coping-Stress Tolerance - Have you had a recent No major change/significant loss/stressor in your life Values/Beliefs/Spiritual Care - Would you like Does not wish to have anyone contacted pastoral care/clergy/financial analysis advisor notified? Mutuality/Individual Preferences - What information nothing would help us give you more personalized care? - What if any None limitations on visitors, TV or phone calls would you like Signatures CAIN GOMEZ (RN)[Signed 20:28] Authored: General Information, Advance Directive, Valuables, Health and Illness History, Allergies, Substance Use, Review of Systems, Cognitive Perceptual, Activity-Exercise/Self Care, Nutrition/Metabolic, Sleep/Relaxation, Role Relationships, Coping-Stress Tolerance, Values/Beliefs/Spiritual Care, Mut uality/Individual Preferences documented in this encounter Plan of Treatment Not on filedocumented as of this encounter Visit Diagnoses Not on filedocumented in this encounter Care Teams Clinical Psychologist Private Practice Relationship Specialty Start Date End Date Andrey Tamez MD PCP - General 03/26/09 Bailey Doran MD PCP - General 09/20/00 03/25/09 [address] [facility] [address] [address] documented as of this encounter
--- OUTSIDE RECORDS SUMMARY | 2022-07-09 12:41 | XMS_ITS | Encounter Summary ---
:1945 Author Organization [facility] Address [address] [place] [address]. [place] [address] Care Team Providers Name Role Phone Andrey Tamez MD Primary Care Provider Andrey Tamez MD Unavailable Andrey Tamez MD Unavailable Encounter Details Date Type Department Care Team Description 09/18/2009 Office Visit-[facility] Katy Trevizo APRN Clinic [place] [id number] [address] [place] [address] [place], [place] [id number] (Wo rk) Social History Tobacco Use Types Packs/Day Years Used Date Smoking Tobacco: Former Cigarettes 0.5 16 Quit : 09/06/1978 Alcohol Use Standard Drinks/Week Comments Yes 10 (1 standard drink = 0.6 oz pure alcoh ol) 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 [id number] DATE: 09/18/2009 RODOLFO HARTLEY DATE OF : 1945 AGE: [age] years old Referring Physician: LAURA RESTREPO Referring Clinic: [facility] CURRENT DIAGNOSES 1. - CAD, 414.00 2. - Hyperlipidemia, 272.4 3. Cerebral Vascular Accident, 435.9 4. SD-S/P Anterior, 412 5. PTCA-LAD FLORI stent 03/2005 for AMI, V45.82 6. - Cardiomyopathy Ischemic, 414.8 7. - Hypertension, benign, 401.1 8. Diabetes Mellitus-NIDD/circ dis/uncont, 250.72 ALLERGIES NKA MEDICATIONS (prior to changes made today) 1. Ramipril 10 mg Tablet, 1 p.o. twice daily 2. Vytorin 10-20 10-20 mg Tablet, 1 qHS 3. Metoprolol 75mg, 1 p.o. twice daily 4. Plavix 75 Mg Tablet, 1 p.o. daily 5. Nitroglycerin 0.4 mg Tablet, Sublingual, Take as Directed CHIEF COMPLAINTS Cardiac Assessment HISTORY OF PRESENT ILLNESS This is a delightful 64-year-old male who presents to the [facility] today for a followup visit. He is a patient of Dr. Foreman'sanket who is seen in our clinic for a past medical history of: 1. Coronary artery disease. 2. Hypertension. 3. Hyperlipidemia. 4. Cardiomyopathy. 5. History of CVA. 6. Borderline diabetes. Rodolfo has a known history of coronary artery disease and did suffer an anterior wall myocardial infarction with emergent stenting of his LAD in 2004. He has been free from any anginal symptoms in follow up. He has been placed on beta- blockade and KELI inhibitor therapy. He does have known low normal left ventricular function. However, he has not experienced any heart failure symptoms. Most recent nuclear stress test was in August 2008, which showed an anterior apical myocardial infarction without evidence of ischemia with left ventricular function of 49%. 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 He has remained on Plavix. His NELDA was negative. He is on Vytorin for elevated cholesterol levels. This is being managed through his primary medical doctor. Most recent lipid panel was in March 2009. His LDL level at that time was 77. He has a known elevated hemoglobin A1c of 7.5%. However, the patient has not followed through on any further invest igation or dietary changes. He returns today for reassessment. Rodolfo tells me that he is doing well. He denies any chest discomfort or neck, arm, or jaw pain with activity or at rest. He is not short of breath. He denies palpitations, lightheadedness, dizziness, or near syncope. He also denies orthopnea, paroxysmal nocturnal dyspnea, or peripheral edema. He tells me that over the past two months he has gained 8 pounds due to dietary indiscretions. He is active andparticipate in a formal exercise program at the gym on a fairly regular basis. He has no limitationsregarding this. He does monitor his blood pressure at home and tells me that his systolic blood pressures are mainly running at 130 to 150 mmHg. His blood pressure today was 143/80. Heart rate was 58. His lungs were clear. There was no evidence of jugular venous distention or peripheral edema. Further review of systems and physical exam are as noted below. PAST HISTORY Past Medical Illnesses: hyperlipidemia, diabetes uyvasasj-dxe-seynkky dependent, hypertension, CVA without residual deficits Past [...] Seat Belt Use - always; Occupation - [employer]; Residence - lives with ; Place of - [place]; Hours Worked - 40 hours per week; REVIEW OF SYSTEMS GENERAL weight gain, 3 lbs, feels well, no change in exercise tolerance. INTEGUMENTARY denies any change in hair or [...] disorders. PHYSICAL EXAMINATION VITAL SIGNS: Blood Pressure: 143/80Sitting, Right arm, regular cuff Pulse- 58.00/min. Weight- 188.60 lbs. Height- 70.00 Temperature- .00 CONSTITUTIONAL well [...] place. MEDICATIONS UPDATED/STARTED TODAY: Ramipril 10 mg Tablet, 1 p.o. twice daily, #60 MEDICATIONS REFILLED/STOPPED TODAY: Ramipril 10 mg Tablet 1 p.o. daily #0 and Ramipril 5 Mg Tablet 1 p.o. daily#0 Refill IMPRESSIONS/PLAN 1. Coronary artery disease. He has a history of an anterior wall myocardial infarction and stenting of the LAD in 2004. He is free from any anginal symptoms today. His most recent nuclear stress test done last year showed anterior wall myocardial infarction without ischemia. I have asked him to remainon beta- blockade and KELI inhibitor therapy. 2. Low normal left ventricular function. He does have known ischemic cardiomyopathy with a left ventricular ejection fraction estimated to be around 50%. We did discuss watching the salt in his diet. I also discussed daily weights. I would like for him to weigh himself daily and to notify our clinic with a weight gain of 2 pounds in one day or 5 pounds in one week. I do not see any signs or symptoms of fluid overload on today's examination. 3. Hypertension. Rodolfo's blood pressure is uncontrolled. It would be more ideal given his low normal left ventricular function to have his systolic blood pressures consistently under 130 mmHg. Therefore, I have elected to increase his ramipril to 10 mg b.i.d. His heart rate is 58 beats per minute on metoprolol 75 mg b.i.d. I would like for him to return in three to four weeks for a BMP and reassessment. 4. Diabetes. Hemoglobin A1c was 7.5%. He has been recommended to have follow up. I did encourage him to do so. 5. Hyperlipidemia. He is on Vytorin 10/20 mg with an LDL level of 77, which is being managed through his primary medical doctor. 6. History of embolic CVA with complete resolution. He has remained on Plavix. Thank you for allowing me to participate in this patient's care. He is to notify our clinic with anychest discomfort, shortness of breath, lightheadedness, dizziness, or other concerns that he may have during the interim. TODAYS ORDERS 1. BMP 3 weeks 2. Return Visit 3 weeks Katy Trevizo N.P. documented in this encounter Plan of Treatment Not on filedocumented as of this encounter Visit Diagnoses Not on filedocumented in this encounter Care Teams Hand Almond Blancher Relationship Specialty Start Date End Date Andrey Tamez MD PCP - General 03/26/09 Andrey Tamez MD PCP - Assigned PCP 09/11/12 11/08/[address] [place] [address] Andrey Tamez MD Assigned PCP 09/11/12 09/07/[address] [place] [address] documented as of this encounter
--- OUTSIDE RECORDS SUMMARY | 2022-07-09 12:41 | XMS_ITS | Encounter Summary ---
:1945 Author Organization [facility] Address [address] [place] [address] Care Team Providers Name Role Phone Bailey Doran MD Primary Care Provider Encounter Details Date Type Department Care Team Description 04/18/2008 Results Only Ankit Thomas MD [facility] [address] [place] [address] (Wo rk) Social History Tobacco Use Types Packs/Day Years Used Date Smoking Tobacco: Former Cigarettes 0.5 16 Quit : 09/06/1978 Alcohol Use Standard Drinks/Week Comments Yes 10 (1 standard drink = 0.6 oz pure alcoh ol) 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 documented in this encounter Results ECHO HEART,TRANSESOPHAGEAL,COMPLETE (04/18/2008 1:45 PM CDT) [facility] Method Time Signature [facility] Interpretation Summary RESULTS Mid and apical anterior hypokinesis; and apical LV akinesis. The visual ejection fraction is estimated at 40%%. There is no thrombus seen in the left ventricle. Intact atrial septum No thrombus is detected in t he left atrial appendage. Normal function of the cardiac valves The aortic root is normal size. Mild atherosclerotic plaque(s) in the descending aorta . There is no pericardial effusion. The rhythm was normal sinus. No source of cardioarterial emboli identified HeartRate: 65 bpm NELDA Consent to the procedure was obtained prior to sedation. Prior to the exam, the oral cavity was checked a nd no overcrowding was noted. The transesophageal probe was passed without difficulty. There were no complications associated with this procedure. Left Ventricle The left ventricle is normal in size. The visual ejection fraction is estimated at 40%%. Mid and apical anterior hypokinesis; and apical LV akinesis. There is no thrombus seen in the left ventricle. Right Ventricle The right ventricle is normal size. The right ventricular systolic function is normal. Atria No thrombus is detected in the left atrial appendage. The left atrium is mildly dilated. Right atrial size is normal. Intact atrial septum. A contrast injection (Bubble Study) was performed that was n egative. Mitral Valve The mitral valve is normal in structure and function. Tricuspid Valve Normal tricuspid valve. There is trace tricuspid regurgitation. Aortic Valve Normal tricuspid aortic valve. There is trace aortic regurgitation. Pulmonic Valve Normal pulmonic valve. Vessels The aortic root is normal size. Mild atherosclerotic plaque(s) in the descending aorta. Pericardial/Pleural There is no pericardial effusion. Rhythm The rhythm was normal sinus. Procedure Complete NELDA Adult. Interpreting Physician: ??MD cricket Chavez lly signed on 04-18-2008 14:28:30 Anatomical Region Laterality Modality Other Specimen (Source) Anatomical Collection Method Collection Time Re ceived Time Location / / Volume Laterality 04/18/2008 1:45 PM CDT Lior Thomas MD SPECIAL IMAGING STUDIES documented in this encounter Visit Diagnoses Not on filedocumented in this encounter Care Teams Manager Philosophy Relationship Specialty Start Date End Date Bailey Doran MD PCP - General 09/20/00 03/25/[address] [place] [address] documented as of this encounter
--- OUTSIDE RECORDS SUMMARY | 2022-07-09 12:41 | XMS_ITS | Encounter Summary ---
:1945 Author Organization [facility] Address [address] [place] [address] Care Team Providers Name Role Phone Andrey Tamez MD Primary Care Provider Bailey Doran MD Primary Care Provider Andrey Tamez MD Unavailable Andrey Tamez MD Unavailable Encounter Details Date Type Department Care Team Description 04/18/2008 Historic Results [facility] Heart Unknown, [facility] ider [address] [address] Social History Tobacco Use Types Packs/Day Years Used Date Smoking Tobacco: Former Cigarettes 0.5 16 Quit : 09/06/1978 Alcohol Use Standard Drinks/Week Comments Yes 10 (1 standard drink = 0.6 oz pure alcoh ol) 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 Provider Scan CV ECHO ORDERABLES documented in this encounter Visit Diagnoses Not on filedocumented in this encounter Care Teams Edge Finisher Relationship Specialty Start Date End Date Andrey Tamez MD PCP - General 03/26/09 Bailey Doran MD PCP - General 09/20/00 03/25/[address] [place], [place] [id number] Andrey Tamez MD PCP - Assigned PCP 09/11/12 11/08/18 [address] [place], [place] [id number] Andrey Tamez MD Assigned PCP 09/11/12 09/07/20 [address] [place], [place] [phone] documented as of this encounter
--- OUTSIDE RECORDS SUMMARY | 2022-07-09 12:41 | XMS_ITS | Encounter Summary ---
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 He needs to use aspiration precautions secondary to left sided weakness. PT was discharged prior to a cognitive-linguistic assessment being completed. - Continued Therapy No Recommended Signatures Lina Morse (Speech Pathologist)[Signed 10:25] Authored: Discharge Summary documented in this encounter Plan of Treatment Not on filedocumented as of this encounter Visit Diagnoses Not on filedocumented in this encounter Care Teams Senior Business Process Analyst Relationship Specialty Start Date End Date Andrey Tamez MD PCP - General 03/26/09 Bailey Doran MD PCP - General 09/20/00 03/25/[address] [address] documented as of this encounter
--- OUTSIDE RECORDS SUMMARY | 2022-07-09 12:41 | XMS_ITS | Encounter Summary ---
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 PMH included: CAD, AL 03/2005 - Precautions/Limitati_ No known precautions/limitations ons - Weight Bearing Status No weight bearing restrictions Cognitive - Orientation Orientation to person, place and time - Level of Alert Consciousness - Follows Commands and 100% of the time; Able to follow multi-step Answers Questions instructions - Memory Scored 4/28 on Short Blessed Screening Test indicating normal to minimal cognition impairment. - Personal Intact Safety/Judgement - Sequencing Intact Visual Perception - Visual Perception: wears glasses - Tracking: Normal; Left to right; Right to left; Up gaze; Down gaze - Neglect: None - Field Cuts: None Pain - Do you have pain now Denies pain at this time. Sensation - Sensation Sensation was appropriate in all areas Muscle Tone - Tone Tone was appropriate in all areas Range of Motion - ROM ROM was appropriate in all areas Strength - Strength Strength was appropriate in all areas Fine Motor Coordination - Finger Opposition: Normal performance - Left: Normal performance - Finger to Nose: Normal performance - Left: Normal performance Diadochokinesis: Normal performance ADL: Prior Level of Functioning - Prior level of Independent functioning: - Comments: Pt lives with his spouse in a rambler with 2 steps to enter the house and has a walk in shower. Pt was I prior to admit. 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 Pt drives. Prognosis/Impression - Skilled Criteria for No Therapy Intervention Met - Criteria not met for No problems identified which require skilled skilled therapy intervention; Current level of function same as intervention previous level of function - Assessment Pt has a medical diagnosis of CVI. Pt presents with intact cognition, vision, fine motor coordination, and strength, same as previous. Pt does not demonstrate any needs that require skilled occupational therapy intervention. OT goal: pt will complete ADL's safely and independently to return home. Goal met. Pt is appropriate to d/c home with spouse. - Rehabilitation Good, to achieve stated therapy goals Potential - Predicted Duration of One time Eval only. Therapy - Predicted Frequency One time Eval only. of Therapy - Discharge Destination Home - Anticipated Equipment NA at Discharge - Risks and Benefits of Yes Treatment have been explained. - Patient, family Yes and/or staff in agreement with Plan of Care ZAINAB Diaz (OT)[Signed 11:21] Authored: General Information, Cognitive, Visual Perception, Pain, Sensation, Muscle Tone, Range of Motion, Strength, Fine Motor Coordination, ADL: Prior Level of Functioning, ADL: Current Level of Functioning , Higher Level ADLs, Prognosis/Impression Interface, Geological Specialist - 11/23/2010 6:17 PM CDT General Information - Type of Note Initial Evaluation - Patient Profile Yes Review - Onset Date - Referring Physician Scott Loja - Patient/Family Goals To go home - History of Present Pt admitted with acute stroke as noted by Problem slurred speech and facial droop. PMH included: GALE YI 03/2005 - Precautions/Limitati_ No known precautions/limitations ons - Weight Bearing Status No weight bearing restrictions Previous Level of Function - Ambulation/Mobility Independent Skills - Transfer Skills Independent - ADL Skills Independent - Work/Activity Level No restrictions Cognitive Status - Orientation Orientation to person, place and time - Level of Alert Consciousness - Follows Commands and 100% of the time; Able to follow multi-step Answers Questions instructions - Personal Intact Safety/Judgement - Sequencing Intact Pain - Do you have pain now Denies pain at this time. Range of Motion - ROM ROM was appropriate in all areas Strength - Strength Strength was appropriate in all areas Functional Performance - Bed Mobility: Independent, No set-up - Scooting/Bridging: Independent, No set-up - Sit to supine: Independent, No set-up - Supine to sit: Independent, No set-up - Transfer: Independent, No set-up - Stand to Sit: Independent, No set-up - Bed to Chair: Independent, No set-up - Chair to bed: Independent, No set-up - Balance: Independent, No set-up - Sitting: Dynamic: Independent, No set-up - Standing: Static: Independent, No set-up - Standing: Dynamic: Independent, No set-up Comments: 54/56 on Scales Balance scale- indicates lower risk for falls. - Gait: Independent, No set-up, Feet 400 feet without device, independently. No gait deficits noted. Sensation - Sensation Sensation was appropriate in all areas Muscle Tone - Tone Tone was appropriate in all areas Prognosis/Impression - Skilled Criteria for No Therapy Intervention Met - Criteria not met for No problems identified which require skilled skilled therapy intervention intervention - PT Practice Pattern Neuromuscular - Assessment Pt. presents with medical diagnosis of CVI. Pt. currently has no deficits noted in strength, balance, or control. Pt. able to perform all bed mobility, transfers, and gait independent and without device, as previous. Pt. will be able to return home with . No further PT warrented. PT goal: Pt. will be independent in all mobility to allow safe return home as previous. Goal met. - Rehabilitation Good, to achieve stated therapy goals Potential - Predicted Duration of Eval only. Therapy - Predicted Frequency Eval only. of Therapy - Discharge Destination Home - Anticipated Equipment NA at Discharge - Risks and Benefits of Yes Treatment have been explained. - Patient, family Yes and/or staff in agreement with Plan of Care Signatures Pito Torres (PT)[Signed 11:08] Authored: General Information, Previous Level of Function, Cognitive Status, Pain, Range of Motion, Strength, Functional Performance, Sensation, Muscle Tone, Prognosis/Impression Interface, Geological Specialist - 11/23/2010 6:17 PM CDT PHYSICAL THERAPY SCALES BALANCE SCALE Sit To Stand Please stand up. Try not to use your hands for support (includes hands on legs for support). 4-Able, no hands, stabilizes independently 3-Able, uses hands 2-Able, uses hands, several times 1-Minimal assist to stand or stabilize 0-Moderate or maximal assist to stand Score: 4 Standing Unsupported Stand for two minutes without holding. 4-Stands safely, 2 minutes 3-Stands 2 minutes with supervision 2-Stands 30 seconds unsupported 1-Several tries to stand 30 seconds unsupported 0-Unable to stand 30 seconds unassisted Score: 4 Sitting Unsupported Instructions: Sit with arms folded for two minutes. 4-Able, safely, 2 minutes 3-Able, 2 minutes with supervision 2-Able, 30 seconds 1-Able, 10 seconds 0-Unable without support 10 seconds Score: 4 Stand to Sit Instructions: Please sit down. 4-Safe with minimal use of hands 3-Controls descent using hands 2-Uses back of legs on chair to control descent 1-Independent with uncontrolled descent 0-Needs assist to sit Score: 4 Transfers Instructions: Please move from chair to bed and back again. One surface with arm rest and one without arm rest. 4-Safe with minor use of hands 3-Safe with definite use of hands 2-Able with verbal cueing and/or supervision 1-Needs one person assist 0-Two people assist or supervision for safety Score: 4 Standing With Eyes Closed Instructions: Close your eyes and stand still for ten seconds. 4-Able, 10 seconds safely 3-Able, 10 seconds with supervision 2-Able, 3 seconds 1-Unable to keep eyes closed 3 seconds, but stays steady 0-Assist needed to prevent fall Score: 4 Standing Unsupported, Feet Together Instructions: Place your feet together and stand without holding. 4-Places feet independently, stand without holding 3-Places feet independently, stand 1 minute with supervision 2-Places feet independently, unable to hold 30 seconds 1-Assist to maintain position, stands 15 seconds 0-Assist to maintain position, unable to hold 15 seconds Score: 4 Reach Forward With Outstretched Arm Instructions: Lift arm to 90 degrees. Stretch out your fingers and reach forward as far as you can. (Examiner places a ruler at end of fingertips when arm is at 90 degress. Fingers should not touch the ruler while reaching forward. The recorded measure is the distance forward that the fingers reach while the subject is in the forward lean position.) 4-Reaches confidently greater than 10 inches 3-Reaches greater than 5 inches safely 2-Reaches greater than 2 inches safely 1-Reaches forward, needs supervision 0-Assist needed to prevent fall Score: 4 Retrieve Object from Floor Instructions: subwarehouse supervisor the shoe which is placed in front of the feet about two feet. 4-Able, safely and easily 3-Able with supervision 2-Unable, reaches 1-2 inches from object and keeps balance independently 1-Unable, needs supervision while trying 0-Unable to try or assist needed to prevent fall Score: 4 Turning To Look Behind Instructions: Turn to look behind you over toward left shoulder. Repeat to the right. 4-Looks both sides, good weight shift 3-Looks one side only, other side less weight shift 2-Turns sideways only, maintains balance 1-Supervision needed when turning 0-Assist needed to prevent fall Score: 4 Turn 360 degrees Instructions: Turn around in a full hoh. Pause for one minute, then turn a full hoh in the other direction. 4-Safe in less than 4 seconds each side 3-Safely one side only less than 4 seconds 2-Safe but slow 1-Needs close supervision or verbal cueing 0-Needs assist while turning Score: 4 Placing Alternate Foot On Stool (4-6 inches) Instructions: Place each foot alternately on the stool. Continue until each foot has touched the stool four times. 4-Stands independently/safely, completes 8 steps in 20 seconds 3-Stands independently, completes 8 steps in greater than 20 seconds 2-Completes 4 steps without aid, with supervision 1-Completes greater than 2 steps, needs minimal assist 0-Assist needed to prevent fall or unable to try Score: 4 Unsupported Tandem Stand (Demonstrate to Subject) Instructions: Place one foot directly in front of the other. If you feel that you cannot place your foot directly in front, try to step far enough ahead that the heel of the forward foot is ahead of the toes on the other foot. 4-Places foot independently, holds 30 seconds 3-Places foot ahead of other independently, holds 30 seconds 2-Takes small step independently, holds 30 seconds 1-Assist to step, holds 30 seconds 0-Loses balance while stepping or standing Score: 3 One Leg Stand Instructions: Stand on one leg as long as you can without holding. 4-Lifts leg independently, holds greater than 10 seconds 3-Lifts leg independently, holds 5-10 seconds 2-Lifts leg independently, holds 3 seconds 1-Tries to lift leg, unable to hold 3 seconds, remains standing independently 0-Unable to try or assist needed to prevent fall Score: 3 Total Score = 54/56 A score of 44 or less has been correlated with an increased risk of falls. [Signature] Author: Pito Torres (PT) [Signed 11:08] Interface, Geological Specialist - 11/23/2010 6:17 PM CDT Patient Status - Diagnosis/Procedure regular - Physical status Stable (s/s of potential complications absent or manageable) - Psychosocial status Stable Discharge Planning - Discharge From: [facility] - Patient Care Unit: station 55 - PCU - Discharge To: Home/Alternative home - Phone number after [phone] discharge: - Method of discharge: Wheel Chair - Transportation: Private Discharge Information - Valuables returned Valuables returned - Discharge information Discharge instructions reviewed with pt/family/so - Mode of Travel Wheelchair Support Services - Is home care No recommended? - Supplies sent/ordered No - Equipment No sent/ordered - Other Services No arranged Special Care Needs and Instructions - Diet Instructions: regular - Activity up as tolerated Instructions: - Report temp if 101 degrees F greater than: - Symptoms/Problems to 1. numbness or tingling look for at home- 2. visual changes call the physician 3. speech difficulties about: 4. weakness - Who patient should Dr. Thomas call: - Phone number of [facility] [phone] patient should call: - Is patient going home No with IV Catheter?: Follow Up Care - Physician/clinician Dr. Thomas-call for time name: - - When to see Wednesday or Wednesday physician/clinician: - Instructions: Outpatient NELDA call [phone] to schedule Signatures PAT ERIC (AVA)[Signed 13:23] Authored: Patient Status, Discharge Planning, Discharge Information, Support Services, Special Care Needs and Instructions, Follow Up Care Interface, Geological Specialist - 11/23/2010 6:17 PM CDT Swallowing Compensations - Type of Note Initial Evaluation - Patient Profile Yes Review - Patient/Family Goals I am hung[place]. - Swallowing Evaluation Bedside swallow evaluation; PT admitted with slurred speech and Left facial droop. 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 PMH - CAD, Acute AL 03/2005, Diabetes, HTN, peripheral neropathy. Oral Motor Exam - Oral Motor Exam WNL - Dentition own - Ability to handle Patient able to handle secretions secretions Oral Phase - Labial Spillage None observed - Oral Stasis None observed - Oral Transit Timely - Mastication WNL - Comments FAS 03/12 Labial Function - Labial protrusion Normal - Labial retraction Decreased strength; Decreased ROM; decreased on left. - Labial Seal Normal Labial seal/closure - Labial coordination Normal Labial coordination - Comments FAS 01/10 Lingual Function - Lingual function at Normal rest - Lingual protrusion Normal - Lingual lateral left Normal - Lingual lateral right Decreased ROM - Lingual anterior Normal elevation - Comments FAS 01/10 Laryngeal Function - Laryngeal function Volitional; Automatic; Throat clear; Cough; Able to palpate elevation on dry swallow - Voice characteristics Within normal limits (WNL) Trial Oral Feeding - Trial oral material Applesauce; Hard, masticated food; Water - Amount 4 oz applesauce, 1 cracker, 10 oz thin - Cough No cough with feeding - Clear throat Pt did not clear throat - Change in vocal There was no change in vocal quality quality Swallowing Compensations - Swallowing No compensations were used Compensations - Results No difficulties noted Impression - Skilled Criteria for Yes Therapy Intervention Met - Assessment 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 PT does continue to present with minimal left-sided facial weakness, but it appears to have little to no impact on speech or swallowing at this time. PT presents with overall swallow function that is felt to be within normal limits at this time secondary to no overt s/sx of aspiration on any PO trials. - Swallowing Regular Diet with Thin Liquids. General safe Precautions/Recommen_ swallow strategies still apply. PT safe to DC dations home from speech perspective. - Rehabilitation Good, to achieve stated therapy goals Potential - Demonstrates need for OT; METEOROLOGICAL ENGINEER referral to another service - Predicted Duration of 3 days Therapy - Predicted Frequency 1x/day of Therapy - Discharge Destination Home; Home with assist - Risks and Benefits of Yes Treatment have been explained. - Patient, family Yes and/or staff in agreement with Plan of Care - Comments FAS 02/10 Signatures Tom Gallegos (Speech Pathologist)[Signed 13:30] Authored: Swallowing Compensations, Oral Motor Exam, Oral Phase, Labial Function, Lingual Function, Laryngeal Function, Trial Oral Feeding, Swallowing Compensations, Impression documented in this encounter Plan of Treatment Not on filedocumented as of this encounter Visit Diagnoses Not on filedocumented in this encounter Care Teams Judicial Clerk Relationship Specialty Start Date End Date Andrey Tamez MD PCP - General 03/26/09 Bailey Doran MD PCP - General 09/20/00 03/25/[address] [place] [address] documented as of this encounter
--- OUTSIDE RECORDS SUMMARY | 2022-07-09 12:41 | XMS_ITS | Encounter Summary ---
:1945 Author Organization [facility] Address [address] [place] [address] Care Team Providers Name Role Phone Bailey Doran MD Primary Care Provider Encounter Details Date Type Department Care Team Description 04/13/2008 Consultation [facility] Nino Thomas MD [facility]OLOGY Results [address] [place] [address] (Wo rk) Social History Tobacco Use Types Packs/Day Years Used Date Smoking Tobacco: Former Cigarettes 0.5 16 Quit : 09/06/1978 Alcohol Use Standard Drinks/Week Comments Yes 10 (1 standard drink = 0.6 oz pure alcoh ol) 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 Scott Loja. REASON FOR CONSULTATION: I was consulted by Dr. Loja for stroke. HISTORY OF PRESENT ILLNESS: Rodolfo Hartley is a very pleasant 62-year-old gentleman who has a history of coronary artery disease, including acute myocardial infarction in 03/2005, and had a stent placed at that time. At about 2:00 in the afternoon, he developed some weakness and drooling on the left side of his face. He denied any headache. He denied any slurred speech. He denied any weakness or numbness on the left side. He came to the emergency room for evaluation within 30 minutes to an hour after the acute onset of symptoms, but his symptoms were close to being resolved and he had very mild neurological deficits. Thus, he was not a candidate for t-PA. PAST MEDICAL HISTORY: He has a history of diabetes that is diet-controlled. History of hypertension. He had a myocardial infarction in the past with stenting of coronary arteries. He had a cholecystectomy, and also he has a history of peripheral neuropathy. FAMILY HISTORY: Significant for mom with myocardial infarction in her 50s as well as heart failure. SOCIAL HISTORY: He quit tobacco abuse in 1979. He occasionally drinks alcohol. He works at [employer]. ALLERGIES: He is not allergic to any medications. MEDICATIONS: 1.Lisinopril 5 mg. 2.Metoprolol 50 mg twice a day. 3.Vytorin 10/20 one pill a day. 4.Baby aspirin two a day. REVIEW OF SYSTEMS: Really unremarkable on 14 systems. He does not have any chest pain, no shortnessof breath, no heartburn, no abdominal pain, no rash, no bleeding, no swelling. PHYSICAL EXAMINATION: VITAL SIGNS: Temperature 36.5, heart rate 58, blood pressure 137/85, respirations 16, and sats 93%.GENERAL: He is in no acute distress. NECK: Supple, no thyroid enlargement, no JVD, no carotid bruits. HEART: Regular rate and rhythm. ABDOMEN: Nontender, nondistended. LUNGS: Clear to auscultation. EXTREMITIES: Without clubbing, cyanosis or edema. NEUROLOGIC: He is alert and oriented x4. Speech and language are intact. His visual denton are normal. Pupils are 3 mm and reactive. Extraocular movements are intact. Facial sensation is normal. He has a central type left-sided facial weakness. Tongue and uvula midline. On motor examination, very mild pronator drift on the left side, but strength is 4/5. Tone and bulk are normal. Reflexes normal. Toes are downgoing. Sensation is normal to pinprick, light touch, joint position and vibration. Coordination is intact to [id number]. LABORATORY: His evaluation in the hospital demonstrated white blood count of 7.0, hemoglobin 15.2, hematocrit 45.3, and platelets 179,000. His INR is 1.01, PTT 27. Sodium 139, potassium 3.8, chloride 101, bicarbonate 27, glucose 123, BUN 21, creatinine 0.97. Liver panel is normal. Troponin is less than 0.012. MRI of the head demonstrated acute right posterior frontal infarct, mostly in the cortical area. OnMRA, there is a branch cut off in the right middle cerebral artery with abnormal area of perfusion on MR, no aneurysms. His MRA of the neck demonstrated basically normal findings. His chest x-ray was normal. Echocardiogram has been ordered. His hemoglobin A1c is 7.1. IMPRESSION AND PLAN: Acute ischemic stroke with no hemorrhagic transformation on MRI. The patient was started on Plavix. We will need to stop his aspirin, as a combination of aspirin and Plavix is notindicated in these kinds of strokes. The patient will need to have a transesophageal echocardiogram done to rule out any cardioembolic sources, including patent foramen ovale. I will change his order to do the transesophageal echocardiogram with a bubble study. The patient will have a lipid profile checked, but he is already on Vytorin, so hopefully we will not need to adjust his medications. The patient will probably require very minimal physical therapy, maybe outpatient. His diabetes will need to be addressed, and I will let the hospitalist address that at this point. He will need to continue his medications with lisinopril and metoprolol at this point. Electronically signed on 04/18/2008 12:28 by LAURA THOMAS MD MT: nancy Name: RODOLFO HARTLEY MRN: -[id number] Account: [id number] : 1945 Consult Date: 04/13/2008 Document: [id number] cc: [facility] documented in this encounter Plan of Treatment Not on filedocumented as of this encounter Visit Diagnoses Not on filedocumented in this encounter Care Teams Tar Roofer Relationship Specialty Start Date End Date Bailey Doran MD PCP - General 09/20/00 03/25/[address], [address] [place] [address] documented as of this encounter
--- OUTSIDE RECORDS SUMMARY | 2022-07-09 12:41 | XMS_ITS | Encounter Summary ---
:1945 Author Organization [place] Address [address] [place] [address] Care Team Providers Name Role Phone Andrey Tamez MD Primary Care Provider Bailey Doran MD Primary Care Provider Andrey Tamez MD Unavailable Andrey Tamez MD Unavailable Encounter Details Date Type Department Care Team Description 08/09/2008 Historic Results [facility] Heart Unknown, [facility] ider [address] [address] Social History Tobacco Use Types Packs/Day Years Used Date Smoking Tobacco: Former Cigarettes 0.5 16 Quit : 09/06/1978 Alcohol Use Standard Drinks/Week Comments Yes 10 (1 standard drink = 0.6 oz pure alcoh ol) 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 Provider Scan IMG NM ORDERABLES documented in this encounter Visit Diagnoses Not on filedocumented in this encounter Care Teams Retail Reset Merchandiser Relationship Specialty Start Date End Date Andrey Tamez MD PCP - General 03/26/09 Bailey Doran MD PCP - General 09/20/00 03/25/[address], [address] [place], [place] [id number] Andrey Tamez MD PCP - Assigned PCP 09/11/12 11/08/18 [address] [place], [place] [phone] Andrey Tamez MD Assigned PCP 09/11/12 09/07/20 [address] [place], [place] [id number] documented as of this encounter
--- OUTSIDE RECORDS SUMMARY | 2022-07-09 12:41 | XMS_ITS | Encounter Summary ---
:1945 Author Organization [facility] Address [address] [place] [address]. [place] [address] Care Team Providers Name Role Phone Andery Tamez MD Primary Care Provider Bailey Doran MD Primary Care Provider Andrey Tamez MD Unavailable Andrey Tamez MD Unavailable Encounter Details Date Type Department Care Team Description 08/15/2008 Office Visit-[facility] Yazan Foreman [facility] Kemi Madsen MD [address] [place] [address] [place] [address] (Wo rk) Social History Tobacco Use Types Packs/Day Years Used Date Smoking Tobacco: Former Cigarettes 0.5 16 Quit : 09/06/1978 Alcohol Use Standard Drinks/Week Comments Yes 10 (1 standard drink = 0.6 oz pure alcoh ol) 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 DATE: 08/15/2008 RODOLFO HARTLEY DATE OF : 1945 AGE: [age] years old Referring Physician/Clinic: BRANDI CIFUENTES CURRENT DIAGNOSES 1. - CAD, 414.00 2. - Hyperlipidemia, 272.4 3. Cerebral Vascular Accident, 435.9 4. AK-S/P Anterior, 412 5. PTCA-LAD FLORI stent 03/2005 for AMI, V45.82 6. - Cardiomyopathy Ischemic, 414.8 7. - Hypertension, benign, 401.1 8. Diabetes Mellitus-NIDD/circ dis/uncont, 250.72 ALLERGIES NKA MEDICATIONS (prior to changes made today) 1. Vytorin 10mg /20 Mg, 1 qHS 2. Nitroglycerin 0.4 mg, Take as Directed 3. Plavix 75 mg, 1 p.o. q.d. 4. Ramipril 5 Mg, 1 p.o. q.d. 5. Metoprolol 75mg, 1 p.o. b.i.d. CHIEF COMPLAINTS Followup of - CAD HISTORY OF PRESENT ILLNESS I had the pleasure of seeing Mr. Hartley today. This 63-year-old gentleman is seen in followup of his coronary disease. He is now three and one-half years out from an acute anterior myocardial infarction treated with emergent stenting. He had been doing well until April of this year when he presented with a small cerebrovascular incident. He states these symptoms have resolved completely and have not recurred. He was changed to Plavix and his KELI inhibitor was changed to ramipril. He subsequently underwent NELDA reportedly without significant findings although I do not have that report and I will obtain it. He has not had any chest, arm, neck, or jaw discomfort, dyspnea on exertion, orthopnea, or edema. Hedenies palpitations, dizziness, or syncope. He is without myalgias or muscle weakness. Followup lipid profile at this time demonstrates reasonable control with triglycerides of 152, totalcholesterol of 153, HDL cholesterol of 47 (which is up), and LDL cholesterol of 76; his ALT is normal. A stress nuclear study shows his prior anteroapical myocardial infarction but no stress-induced ischemia; his ejection fraction was calculated at 49 percent. His blood pressure is controlled today at 122/78. There is no evidence of volume overload. PAST HISTORY Past Medical Illnesses: hyperlipidemia, diabetes hywoshhj-pxo-euaplso dependent, hypertension, CVA without residual deficits Past Cardiac Illnesses: chest pain, positive family hx cvd, coronary artery disease, S/P myocardial infarction-anterior 2004 Cardiology Procedures-Invasive: cardiac cath (left) March 2005, PTCA with intracoronary stent placement of LAD March 2005 Cardiology Procedures-Noninvasive: echocardiogram April 2005, echocardiogram March 2006, myocardial perfusion (Nuc) Aug 2008 Cardiac Cath Results: occlusion mid LAD, successful flori to LAD PMHx Echo Results: 03/11 No definite apical thrombus; mild concentric LVH;LVSF reduced; EF=35%. Distal septal and apicalwall motion abnormality noted. Left Ventricular Ejection Fraction: EF 40-50% by Echo -April 2005, 45% by echo 03/11, EF 45-50% by nuclear study - Aug 2008 Nuclear Results: 08/13 no significant ischemia SOCIAL HISTORY Alcohol Use - drinks occasionally and wine; Smoking - used to smoke but quit and 1980; Diet - low cholesterol, low sodium (less than 2 grams), low fat Diet and caffeine use-1-2 per day; Lifestyle - ; Exercise - some exercise and gym; Seat Belt Use - always; Occupation - [employer]; Residence - lives with ; Place of - [place]; Hours Worked - 40 hours per week; REVIEW OF SYSTEMS GENERAL weight gain, 1.6 since 08/09/08, feels well, no change in exercise tolerance. INTEGUMENTARY denies any change in hair or nails, rashes, or skin lesions. EYES no blurred vision, eye pain, or discharge., wears eye glasses/contact lenses EARS, NOSE, THROAT, MOUTH denies any hearing loss, epistaxis, hoarseness or difficulty speaking. RESPIRATORY denies dyspnea, snoring, cough, wheezing or hemoptysis. CARDIOVASCULAR negative for palpitations, chest pain, orthopnea, PND, peripheral edema, syncope or claudication. ABDOMINAL denies ulcer disease, hematochezia or melena. MUSCULOSKELETAL mild pain back NEUROLOGICAL denies any history of recurrent strokes, headaches, TIA, or seizure disorder. PSYCHIATRIC denies any history of depression, substance abuse or change in cognitive functions. ENDOCRINE hyperlipidemia HEMATOLOGICAL/IMMUNOLOGIC denies any food allergies, seasonal allergies, bleeding disorders. PHYSICAL EXAMINATION VITAL SIGNS: Blood Pressure: 122/78 Sitting, Left arm, regular cuff Pulse- 62.00/min. Weight- 185.60 lbs. Height- 70.00 Temperature- .00 CONSTITUTIONAL cooperative, alert and oriented,well developed, well nourished, in no acute distress. SKIN warm and dry to touch, no apparent skin lesions, or masses noted. HEAD normocephalic, atraumatic EYES pupils equal and round ENT no pallor or cyanosis, dentition good NECK carotid pulses are full and equal bilaterally, JVP normal, no carotid bruit, no thyromegaly CHEST clear to auscultation, normal symmetry, normal respiratory excursion, no use of accessory muscles CARDIAC regular rhythm, S1 normal, S2 normal, No S3 or S4, Apical impulse not displaced, no murmurs, gallopsor rubs detected. ABDOMEN abdomen soft, bowel sounds normoactive, no masses, no hepatosplenomegaly, non- tender, no bruits PERIPHERAL PULSES pulses full and equal in all extremities, no bruits auscultated. EXTREMITIES & BACK no deformities, clubbing, cyanosis, erythema or edema observed. There are no spinal abnormalities noted. Normal muscle strength and tone. NEUROLOGICAL no gross motor deficits noted, affect appropriate, oriented to time, person and place. MEDICATIONS UPDATED/STARTED TODAY: Plavix 75 mg, 1 p.o. q.d. Ramipril 5 Mg, 1 p.o. q.d., Q.S. x 3 months Metoprolol 75mg, 1 p.o. b.i.d., Q.S. x 3 months MEDICATIONS REFILLED/STOPPED TODAY: Metoprolol Tartrate 50 Mg 1 p.o. b.i.d. #180 Physician Order, Lisinopril 10 Mg 1 p.o. b.i.d. #180 Physician Order and Aspirin 325 mg 1/2 tab b.i.d. DIRECTED Physician Order IMPRESSION/PLAN: 1. Coronary artery disease, stable post-remote anterior myocardial infarction with emergent stenting. He has a mildly decreased ejection fraction without any heart failure, arrhythmia, or ischemic symptoms. 2. Dyslipidemia, essentially at goal. 3. Hypertension, controlled. 4. Recent cerebrovascular incident with no residual; etiology is unclear but appears to be embolic. Reportedly there was no PFO; I will obtain his NELDA to review further but he is currently stable on his existing regimen and I will leave him on that. 5. Risk factor intervention. I reviewed his diet, which could be slightly better, and he will work harder on it; otherwise, from an exercise and medication standpoint he is doing well, and he does not smoke. Thank you for having me involved in Mr. Hartley's care. Please let me know if you have any questions. TODAYS ORDERS 1. F/U with Vanessa Ray PA-C 1 year Yazan Foreman M.D. documented in this encounter Plan of Treatment Not on filedocumented as of this encounter Visit Diagnoses Not on filedocumented in this encounter Care Teams Chemical Dependency Nurse Relationship Specialty Start Date End Date Andrey Tamez MD PCP - General 03/26/09 Bailey Doran MD PCP - General 09/20/00 03/25/09 [address] , [address] [address] Andrey Tamez MD PCP - Assigned PCP 09/11/12 11/08/18 [address] [place] [address] Andrey Tamez MD Assigned PCP 09/11/12 09/07/20 [address] [place] [address] documented as of this encounter
--- OUTSIDE RECORDS SUMMARY | 2022-07-09 12:41 | XMS_ITS | Encounter Summary ---
:1945 Author Organization [facility] Address [address] [place] [address] Care Team Providers Name Role Phone Andrey Tamez MD Primary Care Provider Bailey Doran MD Primary Care Provider Andrey Tamez MD Unavailable Andrey Tamez MD Unavailable Encounter Details Date Type Department Care Team Description 04/18/2008 Historic Results [facility] Heart Unknown, [facility] ider [address] [address] Social History Tobacco Use Types Packs/Day Years Used Date Smoking Tobacco: Former Cigarettes 0.5 16 Quit : 09/06/1978 Alcohol Use Standard Drinks/Week Comments Yes 10 (1 standard drink = 0.6 oz pure alcoh ol) 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
--- OUTSIDE RECORDS SUMMARY | 2022-07-09 12:41 | XMS_ITS | Encounter Summary ---
:1945 Author Organization [facility] Address [address] [place] [address] Care Team Providers Name Role Phone Andrey Tamez MD Primary Care Provider Bailey Doran MD Primary Care Provider Encounter Details Date Type Department Care Team Description 04/12/2008 Historic Results INTERFACED REPORT Korina Lipscomb MD EMERGENCY PHYSIC [place] [id number] (Wo rk) Social History Tobacco Use Types Packs/Day Years Used Date Smoking Tobacco: Former Cigarettes 0.5 16 Quit : 09/06/1978 Alcohol Use Standard Drinks/Week Comments Yes 10 (1 standard drink = 0.6 oz pure alcoh ol) 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 documented in this encounter Results EKG 12 LEAD (04/12/2008 4:21 PM CDT) Component Value Ref Range Test Analysis Performed Pathologis t Method Time At Signature Ventricular Rate 80 BPM RADIOLOGY RESULTS Atrial Rate 80 BPM RADIOLOGY RESULTS MA Interval 172 ms RADIOLOGY RESULTS QRS Duration 84 ms RADIOLOGY RESULTS QT 362 ms RADIOLOGY RESULTS QTc 417 ms RADIOLOGY RESULTS P [place] 46 degrees RADIOLOGY RESULTS R AXIS 19 degrees RADIOLOGY RESULTS T [place] 38 degrees RADIOLOGY RESULTS Interpretation Sinus rhythm RADIOLOGY ECG Low voltage QRS RESULTS Possible Inferior infarct , age undetermined Abnormal ECG No previous ECGs available Specimen Anatomical Collection Method Collection Time Receive d Time (Source) Location / / Volume Laterality 04/12/2008 4:21 PM 8 4:05 CDT PM CDT Baljinder Lipscomb MD ECG ORDERABLES Performing Organization Address City/State/ZIP Code Phon e Number RADIOLOGY RESULTS documented in this encounter Visit Diagnoses Not on filedocumented in this encounter Care Teams Mold Closer Helper Relationship Specialty Start Date End Date Andrey Tamez MD PCP - General 03/26/09 Bailey Doran MD PCP - General 09/20/00 03/25/[address], [address] [place] [address] documented as of this encounter
--- OUTSIDE RECORDS SUMMARY | 2022-07-09 12:42 | XMS_ITS | Encounter Summary ---
:1945 Author Organization [facility] Address [address] [place] [address] Care Team Providers Name Role Phone Andrey Tamez MD Primary Care Provider Bailey Doran MD Primary Care Provider Andrey Tamez MD Unavailable Andrey Tamez MD Unavailable Encounter Details Date Type Department Care Team Description 03/11/2006 Historic Results [facility] Heart Unknown, [facility] ider [address] [address] Social History Tobacco Use Types Packs/Day Years Used Date Smoking Tobacco: Former Cigarettes 0.5 16 Quit : 09/06/1978 Alcohol Use Standard Drinks/Week Comments Yes 10 (1 standard drink = 0.6 oz pure alcoh ol) 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 Provider Scan CV ECHO ORDERABLES documented in this encounter Visit Diagnoses Not on filedocumented in this encounter Care Teams Packerhead Machine Operator Relationship Specialty Start Date End Date Andrey Tamez MD PCP - General 03/26/09 Bailey Doran MD PCP - General 09/20/00 03/25/[address], [address] [place], [place] [phone] Andrey Tamez MD PCP - Assigned PCP 09/11/12 11/08/18 [address] [place], [place] [phone] Andrey Tamez MD Assigned PCP 09/11/12 09/07/20 [address] [place], [place] [phone] documented as of this encounter
--- OUTSIDE RECORDS SUMMARY | 2022-07-09 12:42 | XMS_ITS | Encounter Summary ---
:1945 Author Organization [facility] Address [address] [place] [address] Care Team Providers Name Role Phone Andrey Tamez MD Primary Care Provider Bailey Doran MD Primary Care Provider Encounter Details Date Type Department Care Team Description 03/18/2005 Historic Results [facility] Everton Rivera [place] Eva Mccoy MD [address] [id number] [phone] Social History Tobacco Use Types Packs/Day Years Used Date Smoking Tobacco: Former Cigarettes 0.5 16 Quit : 09/06/1978 Alcohol Use Standard Drinks/Week Comments Yes 10 (1 standard drink = 0.6 oz pure alcoh ol) 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 documented in this encounter Results EKG 12 LEAD (03/18/2005 9:13 AM CDT) [facility] Method Time Signature Ventricular Rate 91 BPM RADIOLOGY RESULTS Atrial Rate 91 BPM RADIOLOGY RESULTS WI Interval 158 ms RADIOLOGY RESULTS QRS Duration 84 ms RADIOLOGY RESULTS QT 394 ms RADIOLOGY RESULTS QTc 484 ms RADIOLOGY RESULTS P [place] 60 degrees RADIOLOGY RESULTS R AXIS 58 degrees RADIOLOGY RESULTS T [place] 104 degrees RADIOLOGY RESULTS Interpretation Sinus rhythm RADIOLOGY ECG Anterior infarct (cited on or before 17-MAR-2005) RESULTS T wave abnormality, consider lateral ischemia Abnormal ECG When compared with ECG of 17-MAR-2005 05:08, Vent. rate has increased BY ??31 BPM Borderline criteria for Inferior infarct a re no longer Present Serial changes of Anterior infarct Present Specimen (Source) Anatomical Collection Method Collection Time Re ceived Time Location / / Volume Laterality 03/18/2005 9:13 AM 5 CDT Jadiel Rivera MD ECG ORDERABLES Performing Organization Address City/State/ZIP Code Phon e Number RADIOLOGY RESULTS documented in this encounter Visit Diagnoses Not on filedocumented in this encounter Care Teams Stone Setter Relationship Specialty Start Date End Date Andrey Tamez MD PCP - General 03/26/09 Bailey Doran MD PCP - General 09/20/00 03/25/[address], [address] [place] [address] documented as of this encounter
--- OUTSIDE RECORDS SUMMARY | 2022-07-09 12:42 | XMS_ITS | Encounter Summary ---
:1945 Author Organization [facility] Address [address] [place] [address] Care Team Providers Name Role Phone Bailey Doran MD Primary Care Provider Encounter Details Date Type Department Care Team Description 03/17/2005 Admission [facility]&P [facility] Jadiel Rivera (Gang Worker) Clinic Bryant Mccoy MD Laboratory [address] [place] [address] [place] [address] [phone] Social History Tobacco Use Types Packs/Day Years Used Date Smoking Tobacco: Former Cigarettes 0.5 16 Quit : 09/06/1978 Alcohol Use Standard Drinks/Week Comments Yes 10 (1 standard drink = 0.6 oz pure alcoh ol) 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 HISTORY OF PRESENT ILLNESS: Rodolfo Hartley is a 59-year-old patient with no previous cardiac history, who has been experiencing intermittent episodes of chest, arm/shoulder discomfort over the last 24+ hours. This pain was random in occurrence but occurred frequently throughout the day yesterday starting before midnight last night. The pain kept him home from work. He did not notice any association with activity or position. The pain was a substernal chest pressure, felt also as an aching in his upperleft arm and associated with some nausea. He did not have diaphoresis or shortness of breath with this. It bothered him throughout the day yesterday and was unrelated to meals, activity, etc. He went to bed at a normal time last evening and awakened at about 12:30 with chest discomfort that he was more persistent. He came into the emergency room because of this pain. It was not only more persistent, but also more severe and his nausea was worse. In the emergency room, he was found to have ST segment elevation and was transported to [facility] for emergency care. Mr. Hartley has a history of untreated diabetes as well as a history of hypertension which is not treated. He also has a positive family history of coronary artery disease with his mother having suffered myocardial infarctions at an early age, of about 50 years. He is not a smoker, but believes that his cholesterol is elevated. He is not certain of the lab value. ALLERGIES: NONE. MEDICATIONS: None. REVIEW OF SYSTEMS: The patient denies paroxysmal nocturnal dyspnea, orthopnea, claudication, peripheral edema, syncope, near- syncope or claudication. He has no recent GI or complaints. Review of systems is otherwise negative. SOCIAL HISTORY: The patient is . 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 He uses minimal alcohol. He states that he typically uses less than two to three beers per week. He does not use illegal drugs. PHYSICAL EXAMINATION: GENERAL: This is a middle-aged patient appearing his stated age. VITAL SIGNS: Blood pressure initially 150/100, respirations are normal. He is afebrile. HEENT: No xanthelasma or cyanosis. NECK: Neck exam shows normal carotid upstrokes, on carotid bruits, no jugular venous distention. Thyroid is normal to palpation. CHEST: Lungs are clear to auscultation in all denton with good respiratory effort. HEART: Regular rate and rhythm. Normal S1 and S2. No S3 or S4 or murmur; no rub or heave. ABDOMEN: Abdomen is soft and nontender. Bowel sounds are normal. EXTREMITIES: Warm and well perfused with good peripheral pulses. No peripheral edema, cyanosis, clubbing or splinter hemorrhaging. NEUROLOGICAL: Grossly intact. SKIN: Normal. EKG: This shows a normal sinus rhythm with ST segment elevation in V1 through V5 consistent with an acute anterior myocardial infarction. ASSESSMENT: This patient presents with an acute anterior myocardial infarction and is being brought emergently to the Cardiac Catheterization Laboratory for coronary intervention. I have explained the risks and benefits and he agrees to proceed. PLAN: 1. Coronary intervention. 2. Treatment of hypertension. 3. Treatment of hyperlipidemia. 4. Initiation of diabetic cares as necessary. 5. Routine post-myocardial infarction cares including KELI inhibitor, beta itki, statin and Plavix as indicated. Thank you for allowing me to participate in Mr. Hartley's care. JADIEL RIVERA MD MT: ms Document: [id number] [place], [place] Name: RODOLFO HARTLEY HISTORY AND PHYSICAL Page 3 of 2 LCN:JANETH DSC: [place], [place] Name: RODOLFO HARTLEY MR#: : Admit Date: -30 1945 03/17/2005 Doctor: JADIEL RIVERA MD HISTORY AND PHYSICAL Page 1 of 2 documented in this encounter Plan of Treatment Not on filedocumented as of this encounter Visit Diagnoses Not on filedocumented in this encounter Care Teams Director Of Cardiac Cath Lab Relationship Specialty Start Date End Date Bailey Doran MD PCP - General 09/20/00 03/25/[address] [place] [address] documented as of this encounter
--- OUTSIDE RECORDS SUMMARY | 2022-07-09 12:42 | XMS_ITS | Encounter Summary ---
:1945 Author Organization [facility] Address [address] [place] [address] Care Team Providers Name Role Phone Andrey Tamez MD Primary Care Provider Bailey Doran MD Primary Care Provider Encounter Details Date Type Department Care Team Description 04/01/2005 Historic Results [facility]Anastacio Madsen MD Hospitalists [address] [facility] [address] [place], [place] [id number] (Wo rk) Social History Tobacco Use Types Packs/Day Years Used Date Smoking Tobacco: Former Cigarettes 0.5 16 Quit : 09/06/1978 Alcohol Use Standard Drinks/Week Comments Yes 10 (1 standard drink = 0.6 oz pure alcoh ol) 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 GLUCOSE BY METER Routine 04/01/2005 3:04 PM Resul ts for this CDT procedure are i n the results section. documented in this encounter Results Glucose by meter (04/01/2005 3:49 PM CDT) athologist Signature Glucose 94 60 - 110 MISYS mg/dL Specimen Anatomical Collection Method Collection Time Receive d Time (Source) Location / / Volume Laterality 04/01/2005 3:49 PM 5 7:59 CDT AM CDT [facility] - [facility] POCT Performing Organization Address City/State/ZIP Code Phon e Number MISYS Glucose by meter (04/01/2005 3:04 PM CDT) P athologist Signature Glucose 93 60 - 110 MISYS mg/dL Specimen Anatomical Collection Method Collection Time Receive d Time (Source) Location / / Volume Laterality 04/01/2005 3:04 PM 5 7:59 CDT AM CDT [facility] - [place] POCT Performing Organization Address City/State/ZIP Code Phon e Number MISYS documented in this encounter Visit Diagnoses Not on filedocumented in this encounter Care Teams Leaf Sorter Relationship Specialty Start Date End Date Andrey Tamez MD PCP - General 03/26/09 Bailey Doran MD PCP - General 09/20/00 03/25/[address], [address] [place] [address] documented as of this encounter
--- OUTSIDE RECORDS SUMMARY | 2022-07-09 12:42 | XMS_ITS | Encounter Summary ---
:1945 Author Organization [facility] Address [address] [place] [address] Care Team Providers Name Role Phone Andrey Tamez MD Primary Care Provider Bailey Doran MD Primary Care Provider Encounter Details Date Type Department Care Team Description 03/17/2005 Historic Results [facility] Everton Rivera Slick Eva Mccoy MD [address] [id number] [phone] Social History Tobacco Use Types Packs/Day Years Used Date Smoking Tobacco: Former Cigarettes 0.5 16 Quit : 09/06/1978 Alcohol Use Standard Drinks/Week Comments Yes 10 (1 standard drink = 0.6 oz pure alcoh ol) 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 documented in this encounter Results EKG 12 LEAD (03/17/2005 5:08 AM CDT) Component Value Ref Range Test Analysis Performed Pathologis t Method Time At Signature Ventricular Rate 60 BPM RADIOLOGY RESULTS Atrial Rate 60 BPM RADIOLOGY RESULTS MA Interval 158 ms RADIOLOGY RESULTS QRS Duration 100 ms RADIOLOGY RESULTS QT 410 ms RADIOLOGY RESULTS QTc 410 ms RADIOLOGY RESULTS P [place] 31 degrees RADIOLOGY RESULTS R AXIS 36 degrees RADIOLOGY RESULTS T [place] 55 degrees RADIOLOGY RESULTS Interpretation Sinus rhythm RADIOLOGY ECG Possible Inferior infarct , age undetermined RESULTS Anterior infarct , possibly acute * ACUTE MO ?? Abnormal ECG No previous ECGs available Specimen Anatomical Collection Method Collection Time Receive d Time (Source) Location / / Volume Laterality 03/17/2005 5:08 AM 5 4:56 CDT AM CDT Jadiel Rivera MD ECG ORDERABLES Performing Organization Address City/State/ZIP Code Phon e Number RADIOLOGY RESULTS documented in this encounter Visit Diagnoses Not on filedocumented in this encounter Care Teams Back End Web Developer Relationship Specialty Start Date End Date Andrey Tamez MD PCP - General 03/26/09 Bailey Doran MD PCP - General 09/20/00 03/25/[address], [address] [place] [address] documented as of this encounter
--- OUTSIDE RECORDS SUMMARY | 2022-07-09 12:42 | XMS_ITS | Encounter Summary ---
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 HC INJ PROC FOR LT Routine 03/17/2005 3:50 Result s for this VENTRICULAR/ATRIAL AM CDT procedure are in ANGIOGRAPHY the results section. HC LEFT HEART Routine 03/17/2005 3:50 Results for this CATHETERIZATION AM CDT procedure ar e in the results section. documented in this encounter Results INJECT W CARD CATH LV/LA ANGIO (03/17/2005 3:50 AM CDT) Component Value Ref Test Analysis Performed At Patholo gist Range Method Time Signature IMAGECAST RADIOLOGY RESULT ANGIOGRAM REPORT RESULTS cc: ??Dr. Bailey Doran/[facility] Indication for Procedure: ??This is a 59 year old patient wi th no previous cardiac history presenting to [facility] with chest discomfort and ST segment elevation in the anterior le ads suggesting an acute PR. He is brought emergently to [facility] for coronary evaluation and intervention. PROCEDURE: ??The patient was prepped and draped in the usual sterile fashion. ??1% Xylocaine was used to anesthetize the area of the right femoral artery. ??This artery was entered using modified Jennifer jeanine technique. ??Coronary angiography was then performed using sanket fulton angiographic techniques. ??Please see the formal cardiac catheterization laboratory report for details of angiographi c views obtained and equipment used. ?? Conscious sedation was used throughout the procedure under m y supervision. ?? Total contrast used was 23l cc of Optiray 350; fluoro time 3 .4 minutes. ANGIOGRAPHIC RESULTS Left Main Coronary Artery: ??Normal. Left Anterior Descending Artery: The LAD contains only trivi al disease proximally and then is 100% occluded in its mid segm ent after the first diagonal branch. ??This is a thrombus-ladened vess el without significant distal flow. Circumflex Artery: The circumflex gives off a single large o btuse marginal branch which contains a 40 to 50% irregular stenosi s in its proximal segment. ??This does not appear flow-limiting. ??Th e remainder of the circumflex appears essentially disease-free except fo r some trivial luminal irregularities. Right Coronary Artery: ?? The RCA also contains some diffuse mild disease in its proximal segment estimated to be up to 40%, b ut no flow-limiting lesions. ??It terminates as a PDA. ??The circu mflex therefore would be considered codominant. Hemodynamics: ??The LV pressure is l32/0 with an end-diastol ic pressure of l8. ??The aortic pressure was l34/75 with a ??me an of l00. ?? There was no gradient on aortic valve pullback. Left Ventriculogram: The left ventricle is normal in size. ? ?There is anteroapical akinesis with an ejection fraction estimated to be 35%. ?? No significant mitral regurgitation is seen. The aortic valv e and aortic root are normal in appearance. CONCLUSIONS 1. ??Complete occlusion of the mid LAD. 2. ??There is a wall motion defect consistent with LAD occlu anthony with an ejection fraction estimated to be 35%. ?? 3. ??The end-diastolic pressure is moderately elevated. ANGIOPLASTY REPORT Procedure: ??I initially used a 6.5 Czech sheath and a JL4 guiding catheter in anticipation of a likely intervention in the LAD . ??A [place] wire was advanced without difficulty across the LAD l esion and primarily stenting was undertaken using a 3.0 x l3 mm. Cyphe r drug-eluting stent. This was deployed at l6 atmospheres for an effective size of 3.2 mm. ??This gave excellent angiographic results with 0% residual stenosis and no visible dissection, thrombu s or other complication. ??However, ST segments remained elevated but the patient's pain completely resolved. ??Careful evaluation of the films showed that there was a RIKKI I ??to II blush. The patient wa s then given intracoronary Verapamil, Adenosine and Nitroglycerin w ith slight improvement in the RIKKI flow but no change in the ST segments. ?? The patient leaves the Cath. Lab. with continued ST segment elevation but RIKKI III flow down the LAD and the patient is pain-free. CONCLUSIONS 1. ??Successful stenting of the proximal LAD. Initial obstru ction l00%; final obstruction 0% with no complications. 2. ??Reopro had been administered at [facility] and was continue d throughout this procedure. ?? 3. ??The patient had a small hematoma in the groin at the co nclusion of the case. 4. ??The patient tolerated this procedure well. ??However, t he blush of the myocardium was somewhat suboptimal and was not corrected by use of intracoronary Verapamil and Adenosine as well as Nitrogly cerin. ?? However, the patient is pain-free and does have RIKKI III mitali w down this vessel. Specimen (Source) Anatomical Collection Method Collection Time Re ceived Time Location / / Volume Laterality 03/17/2005 3:50 AM CDT Jadiel Rivera MD PROCEDURES Performing Organization Address City/State/ZIP Code Phon e Number RADIOLOGY RESULTS LEFT HEART CATH,PERCUTANEOUS (03/17/2005 3:50 AM CDT) Component Value Ref Test Analysis Performed At [facility] Range Method Time Signature IMAGECAST RADIOLOGY RESULT ANGIOGRAM REPORT RESULTS cc: ??Dr. Bailey Doran/Critical [facility] Hospital Indication for Procedure: ??This is a 59 year old patient wi th no previous cardiac history presenting to [facility] with chest discomfort and ST segment elevation in the anterior le ads suggesting an acute PR. He is brought emergently to [facility] for coronary evaluation and intervention. PROCEDURE: ??The patient was prepped and draped in the usual sterile fashion. ??1% Xylocaine was used to anesthetize the area of the right femoral artery. ??This artery was entered using modified Jennifer juarezer technique. ??Coronary angiography was then performed using sanket fulton angiographic techniques. ??Please see the formal cardiac catheterization laboratory report for details of angiographi c views obtained and equipment used. ?? Conscious sedation was used throughout the procedure under m y supervision. ?? Total contrast used was 23l cc of Optiray 350; fluoro time 3 .4 minutes. ANGIOGRAPHIC RESULTS Left Main Coronary Artery: ??Normal. Left Anterior Descending Artery: The LAD contains only trivi al disease proximally and then is 100% occluded in its mid segm ent after the first diagonal branch. ??This is a thrombus-ladened vess el without significant distal flow. Circumflex Artery: The circumflex gives off a single large o btuse marginal branch which contains a 40 to 50% irregular stenosi s in its proximal segment. ??This does not appear flow-limiting. ??Th e remainder of the circumflex appears essentially disease-free except fo r some trivial luminal irregularities. Right Coronary Artery: ?? The RCA also contains some diffuse mild disease in its proximal segment estimated to be up to 40%, b ut no flow-limiting lesions. ??It terminates as a PDA. ??The circu mflex therefore would be considered codominant. Hemodynamics: ??The LV pressure is l32/0 with an end-diastol ic pressure of l8. ??The aortic pressure was l34/75 with a ??me an of l00. ?? There was no gradient on aortic valve pullback. Left Ventriculogram: The left ventricle is normal in size. ? ?There is anteroapical akinesis with an ejection fraction estimated to be 35%. ?? No significant mitral regurgitation is seen. The aortic valv e and aortic root are normal in appearance. CONCLUSIONS 1. ??Complete occlusion of the mid LAD. 2. ??There is a wall motion defect consistent with LAD occlu anthony with an ejection fraction estimated to be 35%. ?? 3. ??The end-diastolic pressure is moderately elevated. ANGIOPLASTY REPORT Procedure: ??I initially used a 6.5 Czech sheath and a JL4 guiding catheter in anticipation of a likely intervention in the LAD . ??A [place] wire was advanced without difficulty across the LAD l esion and primarily stenting was undertaken using a 3.0 x l3 mm. Cyphe r drug-eluting stent. This was deployed at l6 atmospheres for an effective size of 3.2 mm. ??This gave excellent angiographic results with 0% residual stenosis and no visible dissection, thrombu s or other complication. ??However, ST segments remained elevated but the patient's pain completely resolved. ??Careful evaluation of the films showed that there was a RIKKI I ??to II blush. The patient wa s then given intracoronary Verapamil, Adenosine and Nitroglycerin w ith slight improvement in the RIKKI flow but no change in the ST segments. ?? The patient leaves the Cath. Lab. with continued ST segment elevation but RIKKI III flow down the LAD and the patient is pain-free. CONCLUSIONS 1. ??Successful stenting of the proximal LAD. Initial obstru ction l00%; final obstruction 0% with no complications. 2. ??Reopro had been administered at [facility] and was continue d throughout this procedure. ?? 3. ??The patient had a small hematoma in the groin at the co nclusion of the case. 4. ??The patient tolerated this procedure well. ??However, t he blush of the myocardium was somewhat suboptimal and was not corrected by use of intracoronary Verapamil and Adenosine as well as Nitrogly cerin. ?? However, the patient is pain-free and does have RIKKI III mitali w down this vessel. Specimen (Source) Anatomical Collection Method Collection Time Re ceived Time Location / / Volume Laterality 03/17/2005 3:50 AM CDT Jadiel Rivera MD PROCEDURES Performing Organization Address City/State/ZIP Code Phon e Number RADIOLOGY RESULTS documented in this encounter Visit Diagnoses Not on filedocumented in this encounter Care Teams Sales Enablement Consultant Relationship Specialty Start Date End Date Bailey Doran MD PCP - General 09/20/00 03/25/09 [address] , [facility] [address] [place] [address] documented as of this encounter
--- OUTSIDE RECORDS SUMMARY | 2022-07-09 12:42 | XMS_ITS | Encounter Summary ---
:1945 Author Organization [facility] Address [address] [place] [address] Care Team Providers Name Role Phone Miguel Woodward MD Primary Care Provider Reason for Visit Reason Comments Refill Request lipitor Encounter Details Date Type Department Care Team Description 11/24/2001 Refill [facility] Miguel Woodward MD Refill Request (lipitor) Physicians [address], [address] [place] [address] [address] [place] [id number] [phone] Social History Tobacco Use Types Packs/Day Years Used Date Smoking Tobacco: Former Cigarettes 0.5 16 Quit : 09/06/1978 Alcohol Use Standard Drinks/Week Comments Yes 10 (1 standard drink = 0.6 oz pure alcoh ol) 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 >> CATIE COREAS WedNov 29, 2001 10:36 AM LES please ok refill so I may close encounter. Thank you. Pharmacy called with refill auth. >> MIGUEL WOODWARD WedNov 29, 2001 8:38 AM Meds til 04/07. Needs fasting appointment with me in 04/07. Call patient to where we need to refill medications. Did not have a diabetes check with this blood work. I will notify in lab letter results. >> CATIE COREAS Gabriella Nov 24, 2001 8:38 AM >> CALL RECEIVED. Contact: sarai [phone] Pt in for lab draw today. Pt will need a refill on Lipitor called to pharmacy. Ok to fold until LES back from vacation. Pt given samples. documented in this encounter Plan of Treatment Not on filedocumented as of this encounter Visit Diagnoses Diagnosis Mixed hyperlipidemia - Primary documented in this encounter Care Teams Philosophy Specialist Relationship Specialty Start Date End Date Miguel Woodward MD PCP - General 09/20/00 03/25/09 [address] [facility] [address] [place] [address] documented as of this encounter
--- OUTSIDE RECORDS SUMMARY | 2022-07-09 12:42 | XMS_ITS | Encounter Summary ---
:1945 Author Organization [facility] Address [address] [place] [address]. 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 documented in this encounter Results Glucose by meter (04/13/2005 1:03 PM CDT) P athologist Signature Glucose 100 60 - 110 MISYS mg/dL Specimen Anatomical Collection Method Collection Time Receive d Time (Source) Location / / Volume Laterality 04/13/2005 1:03 PM 5 CDT 11:49 AM CDT Yazan Foreman MD [facility] POCT Performing Organization Address City/State/ZIP Code Phon e Number MISYS documented in this encounter Visit Diagnoses Not on filedocumented in this encounter Care Teams Greensman Relationship Specialty Start Date End Date Andrey Tamez MD PCP - General 03/26/09 Bailey Doran MD PCP - General 09/20/00 03/25/09 [address] [facility] [address] [place] [address] documented as of this encounter
--- OUTSIDE RECORDS SUMMARY | 2022-07-09 12:42 | XMS_ITS | Encounter Summary ---
:1945 Author Organization [facility] Address [address] [place] [id number] Care Team Providers Name Role Phone Andrey Tamez MD Primary Care Provider Bailey Doran MD Primary Care Provider Andrey Tamez MD Unavailable Andrey Tamez MD Unavailable Encounter Details Date Type Department Care Team Description 07/06/2005 Office Visit-[facility] Heart Unknown, Yassine tay MD [address] [id number] Social History Tobacco Use Types Packs/Day Years Used Date Smoking Tobacco: Former Cigarettes 0.5 16 Quit : 09/06/1978 Alcohol Use Standard Drinks/Week Comments Yes 10 (1 standard drink = 0.6 oz pure alcoh ol) 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/2020 10:26 AM 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 DATE: 07/06/2005 RODOLFO HARTLEY DATE OF : 1945 AGE: [age] years old Referring Physician: MERA SHARMA Referring Clinic: [facility] CURRENT DIAGNOSES 1. OR-S/P Anterior, 412 2. PTCA-LAD FLORI stent 03/2005 for AMI, V45.82 3. - CAD, 414.00 4. - Hyperlipidemia, 272.4 5. - Hypertension, benign, 401.1 6. Diabetes Mellitus-NIDD/circ dis/uncont, 250.72 ALLERGIES NKA MEDICATIONS (including any changes made today) 1. Aspirin 81 mg, 1 p.o. q.d. 2. Nitroglycerin 0.4 mg, Take as Directed 3. Vytorin 10mg /20 Mg, 1 p.o. q.d. 4. Metoprolol Tartrate 50 mg, 1 p.o. b.i.d. 5. Plavix 75 mg, 1 p.o. q.d. 6. Lisinopril 5mg, 1 p.o. b.i.d. CHIEF COMPLAINTS Followup of - CAD and Followup of OR-S/P Anterior HISTORY OF PRESENT ILLNESS I had the opportunity to see Mr. Hartley today. This 60-year-old gentleman is now almost four monthsout from his anterior myocardial infarction treated with emergent LAD stenting. He has gone through cardiac rehab and found this very beneficial. He has returned to full activity and does not feel likehe has any limitations at this time. He has returned to work. He has maintained an improved life style and understands the importance of exercise and an appropriate diet. On his current regimen, his lipids were aggressively and attentively controlled with lipids at the end of April showing triglycerides 114, total cholesterol 99, HDL 35 and LDL 41. Blood pressure today was 120/70 and he states this has been typical or less than that at rehab. He is having no myalgias or muscle weakness, denies chest discomfort, dyspnea on exertion, orthopnea, palpitations, dizziness or syncope or bleeding episodes. He is checking his blood sugars periodically to follow the control of his type 2 diabetes mellitus and he is losing weight and following a better diet. I discussed the benefits of a low carbohydrate/complex carbohydrate diet along with his weight loss and potentially significantly improving his glucose control. We reviewed and discussed target weights and diets today. An echocardiogram done in April showed that his left ventricular ejection had improved and was around 45%. PAST HISTORY Past Medical Illnesses: diabetes mellitus-poorly controlled, hypertension-uncontrolled, hyperlipidemia Past Cardiac Illnesses: chest pain, positive family hx cvd, coronary artery disease, S/P myocardial infarction-anterior 2004 Cardiology Procedures-Invasive: cardiac cath (left) March 2005, PTCA with intracoronary stent placement of LAD March 2005 Cardiology Procedures-Noninvasive: echocardiogram April 2005 Cardiac Cath Results: occlusion mid LAD, successful flori to LAD Left Ventricular Ejection Fraction: EF 40-50% by Echo -April 2005 REVIEW OF SYSTEMS GENERAL positive for weight loss of approximately 5 lbs, feels well, no change in exercise tolerance. INTEGUMENTARY denies any change in hair or nails, rashes, or skin lesions. EYES wears eye glasses/contact lenses EARS, NOSE, THROAT, MOUTH denies any hearing loss, epistaxis, hoarseness or difficulty speaking. RESPIRATORY negative for dyspnea CARDIOVASCULAR per hpi ABDOMINAL denies ulcer disease, hematochezia or melena. GENITOURINARY-MALE positive for nocturia MUSCULOSKELETAL denies any history of arthritic symptoms or back problems. NEUROLOGICAL denies any history of recurrent strokes, headaches, TIA, or seizure disorder. PSYCHIATRIC denies any history of depression, substance abuse or change in cognitive functions. ENDOCRINE hyperlipidemia HEMATOLOGICAL/IMMUNOLOGIC denies any food allergies, seasonal allergies, bleeding disorders. PHYSICAL EXAMINATION VITAL SIGNS: Blood Pressure: 120/70 Sitting, Left arm, regular cuff Pulse- 68.00/min. Weight- 177.00 lbs. Height- 70.00 Temperature- .00 CONSTITUTIONAL cooperative, alert and oriented,well developed, well nourished, in no acute distress. SKIN warm and dry to touch, no apparent skin lesions, or masses noted. HEAD normocephalic, atraumatic EYES pupils equal and round ENT no pallor or cyanosis, dentition good NECK carotid pulses are full and equal bilaterally, JVP normal, no carotid bruit, no thyromegaly CHEST normal symmetry, no tenderness to palpation, normal respiratory excursion, no intercostal retraction, no use of accessory muscles, clear to auscultation and percussion. CARDIAC regular rhythm, S1 normal, S2 normal, [...] oriented to time, person and place. MEDICATIONS UPDATED TODAY: IMPRESSIONS/PLAN 1. Coronary artery disease, status post anterior infarction. Currently stable without ischemic heartfailure or arrhythmia symptoms. I think he is on a good medical regimen and I asked him to continue it. 2. Dyslipidemia, intensively treated. He should have a follow-up lipid profile in approximately four months. 3. Hypertension history, controlled. It was a pleasure seeing this nice gentleman doing well. Thank you for having me involved in his care. TODAYS ORDERS 1. F/U with Herminia Boyd 2. Return Visit 9 months 3. 2D, color flow, doppler 9 months Yazan Foreman M.D. documented in this encounter Plan of Treatment Not on filedocumented as of this encounter Visit Diagnoses Not on filedocumented in this encounter Care Teams Grievance And Appeals Coordinator Relationship Specialty Start Date End Date Andrey Tamez MD PCP - General 03/26/09 Bailey Doran MD PCP - General 09/20/00 03/25/[address] [place], [place] [id number] Andrey Tamez MD PCP - Assigned PCP 09/11/12 11/08/18 [address] [place], [place] [address] Andrey aTmez MD Assigned PCP 09/11/12 09/07/20 [address] [place], [place] [id number] documented as of this encounter
--- OUTSIDE RECORDS SUMMARY | 2022-07-09 12:42 | XMS_ITS | Encounter Summary ---
:1945 Author Organization [facility] Address [address] [place] [address] Care Team Providers Name Role Phone Andrey Tamez MD Primary Care Provider Bailey Doran MD Primary Care Provider Encounter Details Date Type Department Care Team Description 04/03/2005 Historic Results [facility] Madsen MD Hospitalists [address] [facility] [address] [place], [place] [id number] (Wo rk) Social History Tobacco Use Types Packs/Day Years Used Date Smoking Tobacco: Former Cigarettes 0.5 16 Quit : 09/06/1978 Alcohol Use Standard Drinks/Week Comments Yes 10 (1 standard drink = 0.6 oz pure alcoh ol) 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 documented in this encounter Results (ABNORMAL) Glucose by meter (04/03/2005 3:01 PM CDT) P athologist Signature Glucose 130 (H) 60 - 110 [facility] mg/dL Specimen Anatomical Collection Method Collection Time Receive d Time (Source) Location / / Volume Laterality 04/03/2005 3:01 PM 5 8:00 CDT AM CDT Yazan Foreman MD [facility] POCT Performing Organization Address City/State/ZIP Code Phon e Number MISYS documented in this encounter Visit Diagnoses Not on filedocumented in this encounter Care Teams Golf Ball Winder Relationship Specialty Start Date End Date Andrey Tamez MD PCP - General 03/26/09 Bailey Doran MD PCP - General 09/20/00 03/25/09 [address] [facility] [address] [place] [address] documented as of this encounter
--- OUTSIDE RECORDS SUMMARY | 2022-07-09 12:42 | XMS_ITS | Encounter Summary ---
:1945 Author Organization [facility] Address [address] [place] [address] Care Team Providers Name Role Phone Bailey Doran MD Primary Care Provider Encounter Details Date Type Department Care Team Description 11/24/2001 Orders Only [facility] Bailey Doran, MIXED HYPERLIPIDEMIA; Physicians DIABETES UNCOMPL ADULT-TYPE II [address] [address] , [address] [id number] Social History Tobacco Use Types Packs/Day Years Used Date Smoking Tobacco: Former Cigarettes 0.5 16 Quit : 09/06/1978 Alcohol Use Standard Drinks/Week Comments Yes 10 (1 standard drink = 0.6 oz pure alcoh ol) 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 HCL LIPID PANEL Routine 11/25/2001 12:36 AM Mixed Resul ts for this MARKETING GRAPHICS SPECIALIST Hyperlipidemia procedure are in Diabetes Uncompl the results Adult-Type Ii section. HC VENOUS COLLECTION Routine 11/24/2001 8:36 AM Mixed MARKETING GRAPHICS SPECIALIST Hyperlipidemia Diabetes Uncompl Adult-Type Ii documented in this encounter Results (ABNORMAL) A.M.A. HEPATIC PANEL (11/25/2001 12:36 AM MARKETING GRAPHICS SPECIALIST) Analysis Performed At Patho logist Time Signature Comments DNR [facility] Protein Total 6.9 6.0 - 8.3 [place] G/DL Albumin 4.7 3.5 - 4.9 [facility] G/DL Globulin 2.2 2.2 - 4.2 [facility] Calculated G/DL A/G Ratio 2.1 (H) 0.8 - 2.0 [facility] Bilirubin Total 0.6 0.2 - 1.5 [facility] MG/DL Bilirubin Direct 0.1 0.0 - 0.3 [facility] MG/DL Alkaline 70 20 - 125 [facility] Phosphatase U/L AST 17 2 - 50 U/L [facility] ALT 23 2 - 60 U/L [facility] Specimen (Source) Anatomical Location Collection Method / Collectio n Time Received Time / Laterality Volume 11/24/2001 Bailey Doran MD LABORATORY Performing Organization Address City/State/ZIP [facility] Phon e Number [facility] (ABNORMAL) A.M.A. LIPID PANEL (11/25/2001 12:36 AM MARKETING GRAPHICS SPECIALIST) Patholo gist Method Time Signature Comments DNR [facility] Triglycerides 216 (H) <150 MG/DL [facility] Cholesterol 170 <200 MG/DL [facility] Cholesterol 9 PERCENTILE [facility] Percentile HDL Cholesterol 43 >39 MG/DL [facility] LDL Cholesterol 84 <130 MG/DL [facility] Calculated Cholesterol/HDL 4.0 3.0 - 6.5 [facility] Ratio Specimen (Source) Anatomical Location Collection Method / Collectio n Time Received Time / Laterality Volume 11/24/2001 Bailey Doran MD LABORATORY Performing Organization Address City/State/ZIP [facility] Phon e Number [facility] documented in this encounter Visit Diagnoses Diagnosis Mixed hyperlipidemia Type II or unspecified type diabetes vijaya litus without mention of complication, not stated as uncontrolled documented in this encounter Care Teams Certified Orthoptist Relationship Specialty Start Date End Date Bailey Doran MD PCP - General 09/20/00 03/25/[address] [place] [address] documented as of this encounter
--- OUTSIDE RECORDS SUMMARY | 2022-07-09 12:42 | XMS_ITS | Encounter Summary ---
:1945 Author Organization [place] Address [facility] [place] [address] Care Team Providers Name Role Phone Andrey Tamez MD Primary Care Provider Bailey Doran MD Primary Care Provider Encounter Details Date Type Department Care Team Description 04/12/2008 Historic Results [place] Scott Tiwari , Hospitalists [address] [place] [phone] Social History Tobacco Use Types Packs/Day Years Used Date Smoking Tobacco: Former Cigarettes 0.5 16 Quit : 09/06/1978 Alcohol Use Standard Drinks/Week Comments Yes 10 (1 standard drink = 0.6 oz pure alcoh ol) 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 CBC WITH PLATELETS & STAT 04/12/2008 3:00 PM R esults for this DIFFERENTIAL CDT procedure are i n the results section. TROPONIN I STAT 04/12/2008 3:00 PM Results f or this CDT procedure are i n the results section. INR STAT 04/12/2008 3:00 PM Results f or this CDT procedure are i n the results section. PARTIAL THROMBOPLASTIN STAT 04/12/2008 3:00 PM Results for this TIME CDT procedure are i n the results section. COMPREHENSIVE METABOLIC STAT 04/12/2008 3:00 PM Results for this PANEL CDT procedure are i n the results section. documented in this encounter Results (ABNORMAL) Routine UA with microscopic (04/12/2008 11:45 PM CDT) [facility] Galaxy Digital Method Time Signature Source Midstream [facility] Urine Color Urine Light Yellow [facility] Appearance Urine Clear [facility] Glucose Urine Negative NEG mg/dL [facility] Bilirubin Urine Negative NEG [facility] Ketones Urine Negative NEG mg/dL [facility] Specific [place] 1.012 1.003 - MIS[facility] Urine 1.035 Blood Urine Negative NEG [facility] pH Urine 7.5 (H) 5.0 - 7.0 [facility] pH Protein Albumin Negative NEG mg/dL [facility] Urine Urobilinogen Normal 0.0 - 2.0 [facility] mg/dL mg/dL Nitrite Urine Negative NEG [facility] Leukocyte Trace (A) NEG [facility] Esterase Urine WBC Urine 1 0 - 2 [facility] /HPF RBC Urine <1 0 - 2 [facility] /HPF Specimen Anatomical Collection Method Collection Time Receive d Time (Source) Location / / Volume Laterality 04/12/2008 11:45 04/12/2008 7:47 PM CDT PM CDT Scott Loja MD LAB - URINE ORDERABLES Performing Organization Address City/State/ZIP Code Phon e Number MIS[facility] CBC with platelets differential (04/12/2008 3:00 PM CDT) [facility] Galaxy Digital Method Time Signature MCV 98 78 - 100 [place] fl MCH 32.8 26.5 - [place] 33.0 pg MCHC 33.5 31.5 - [place] 36.5 g/dL RDW 12.9 10.0 - [place] 15.0 % WBC 7.0 4.0 - [place] 11.0 10e9/L RBC Count 4.63 4.4 - 5.9 [place] 10e12/L Hemoglobin 15.2 13.3 - [place] 17.7 g/dL Hematocrit 45.3 40.0 - [place] 53.0 % % Neutrophils 65 40 - 75 % [place] % Lymphocytes 23 20 - 48 % [place] % Monocytes 11 0 - 12 % [place] % Eosinophils 1 0 - 6 % [place] % Basophils 0 0 - 2 % [facility] Platelet Count 179 150 - 450 [place] 10e9/L Absolute 4.5 1.6 - 8.3 [place] Neutrophil 10e9/L Absolute 1.6 0.8 - 5.3 [place] Lymphocytes 10e9/L Absolute 0.8 0.0 - 1.3 [place] Monocytes 10e9/L Absolute 0.1 0.0 - 0.7 [place] Eosinophils 10e9/L Absolute 0.0 0.0 - 0.2 [facility] Basophils 10e9/L Diff Method Automated [facility] Method Specimen Anatomical Collection Method Collection Time Receive d Time (Source) Location / / Volume Laterality 04/12/2008 3:00 PM 8 4:05 CDT PM CDT Baljinder Lipscomb MD LAB - BLOOD ORDERABLES Performing Organization Address City/[facility] Phon e Number MIS[facility] INR (04/12/2008 3:00 PM CDT) P athologist Signature INR 1.01 0.86 - 1.14 [facility] Specimen Anatomical Collection Method Collection Time Receive d Time (Source) Location / / Volume Laterality 04/12/2008 3:00 PM 8 4:05 CDT PM CDT Baljinder Lipscomb MD LAB - BLOOD ORDERABLES Performing Organization Address [facility] Phon e Number MISYS Partial thromboplastin time (04/12/2008 3:00 PM CDT) P athologist Signature PTT 27 22 - 37 sec MIS[facility] Specimen Anatomical Collection Method Collection Time Receive d Time (Source) Location / / Volume Laterality 04/12/2008 3:00 PM 8 4:05 CDT PM CDT Baljinder Lipscomb MD LAB - BLOOD ORDERABLES Performing Organization Address City/[facility] Phon e Number MISYS (ABNORMAL) Comprehensive metabolic panel (04/12/2008 3:00 PM CDT) P athologist Signature Sodium 139 133 - 144 [place] mmol/L Potassium 3.8 3.4 - 5.3 [facility] mmol/L Chloride 101 94 - 109 [facility] mmol/L Carbon Dioxide 27 20 - 32 [facility] mmol/L Glucose 123 (H) 60 - 99 [facility] mg/dL Urea Nitrogen 21 7 - 30 [facility] mg/dL Creatinine 0.98 0.66 - MIS[facility] 1.25 mg/dL Comment: New IDMS-traceable calibration beginning 01/05/08 GFR Estimate 78 >60 mL/min/1.7m2 M[facility] GFR Estimate If Black >90 >60 mL/min/1.7m2 M [facility] Calcium 8.7 8.5 - 10.4 mg/dL [facility] AST 23 0 - 55 U/L [facility] Protein Total 6.9 6.8 - 8.8 g/dL MIS[facility] Comment: As of 08, reference range reflects plasma specimen type. Anion Gap 10 6 - 17 mmol/L M[facility] Albumin 4.3 3.2 - 4.5 g/dL M[facility] ALT 25 0 - 70 U/L [facility] Alkaline Phosphatase 91 40 - 150 U/L [facility] Bilirubin Total 0.4 0.2 - 1.3 mg/dL M[facility] Specimen Anatomical Collection Method Collection Time Receive d Time (Source) Location / / Volume Laterality 04/12/2008 3:00 PM 8 4:05 CDT PM CDT Baljinder Lipscomb MD LAB - BLOOD ORDERABLES Performing Organization Address City/State/ZIP Code Phon e Number MIS[place] Troponin I (04/12/2008 3:00 PM CDT) P athologist Signature Troponin I ES <0.012 0.000 - MIS[facility] 0.034 ug/L Comment: Note: New test methodology and reference range started on August 23, 2007. Specimen Anatomical Collection Method Collection Time Receive d Time (Source) Location / / Volume Laterality 04/12/2008 3:00 PM 8 4:05 CDT PM CDT Baljinder Lipscomb MD LAB - BLOOD ORDERABLES Performing Organization Address City/State/ZIP Code Phon e Number MIS[place] documented in this encounter Visit Diagnoses Not on filedocumented in this encounter Care Teams Package Delivery Driver Relationship Specialty Start Date End Date Anrdey Tamez MD PCP - General 03/26/09 Bailey Doran MD PCP - General 09/20/00 03/25/09 [address] [facility] [address] [place] [address] documented as of this encounter
--- OUTSIDE RECORDS SUMMARY | 2022-07-09 12:42 | XMS_ITS | Encounter Summary ---
:1945 Author Organization [facility] Address [address] [place] [address] Care Team Providers Name Role Phone Bailey Doran MD Primary Care Provider Reason for Referral - Closed Specialty Diagnoses / Procedures Referred By Contact Refer red To Contact Ophthalmology Diagnoses Type II or unspecified type diabetes mellitus without mention of complication, not stated as uncontrolled Bailey Doran MD [address], [facility] [address] [place] [address] Referral ID Status Reason Start Date Expiration Date Visits Requ ested Visits Authorized [id number] Closed 07/03/2002 09/05/2011 1 1 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 Encounter Details Date Type Department Care Team Description 07/03/2002 Office Visit [facility] Bailey Doran, DIABET ES UNCOMPL ADULT-TYPE II (Primary Dx); Physicians MIXED HYPERLIPIDEMIA; [address], VACCINE FOR INFLUENZA [address] [place] [address] [phone] Social History Tobacco Use Types Packs/Day Years Used Date Smoking Tobacco: Former Cigarettes 0.5 16 Quit : 09/06/1978 Alcohol Use Standard Drinks/Week Comments Yes 10 (1 standard drink = 0.6 oz pure alcoh ol) 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/2020 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 documented as of this encounter Last Filed Vital Signs Vital Sign Reading Time Taken Comments Blood Pressure 138/86 07/03/2002 8:15 AM LEARNING CENTER INSTRUCTOR Pulse - - Temperature 36.1 ??C (97 ??F) 07/03/2002 8:15 AM LEARNING CENTER INSTRUCTOR Respiratory Rate 12 07/03/2002 8:15 AM LEARNING CENTER INSTRUCTOR Oxygen Saturation - - Inhaled Oxygen Concentration - - Weight 84.1 kg (185 lb 8 oz) 07/03/2002 8:15 AM LEARNING CENTER INSTRUCTOR Height 177.8 cm (5' 10) 07/03/2002 8:15 AM LEARNING CENTER INSTRUCTOR Body Mass Index 26.62 07/03/2002 8:15 AM LEARNING CENTER INSTRUCTOR documented in this encounter Progress Notes 07/03/2002 8:15 AM LEARNING CENTER INSTRUCTOR SUBJECTIVE: Rodolfo Quevedo is an 57 year old male who presents for evaluation of hyperlipidemia. He eisenberg s been diagnosed in the past as having combined hyperlipidemia. He indicates that he is feeling well and denies any symptoms of cardiovascular disease. Specifically denies chest pain, palpitations, dysp vinnie, orthopnea, PND, claudication or peripheral edema. Treatment modalities employed to this point in clude diet, regular aerobic exercise, weight loss and HMG-CoA reductase inhibitors. Current medicatio n regimen is as listed below. Patient denies any side effects of medication. Family history: positiv e for diabetes mellitus and cardiovascular disease Age at diagnosis of hyperlipidemia: 52 Cardiovascu lar risk factors: family history, lipids and diabetes mellitus Meds as of 07/03/2002: ASPIRIN 81 MG OR TABS 1 tab po QD (Once per day) LIPITOR 10 MG OR TABS 1 tab PO QD (Once per day) METFORMIN HCL 500 MG OR TABS 1 tab po bid with food Review of patient's allergies indicates: No Known Drug * To bacco Use: Quit Packs/Day: .5 Years: 16 Quit date: 09/06/1978 Alcohol Use: Yes 6 oz/week OBJECTIVE: BP 138/86 Temp 97 Temp Src: Oral Ht 5' 10 (1.778m) Wt 185 lbs 8 oz (84.142 kg) Repeat BP R arm seated = 138/86 with large size cuff. Skin: negative Fundi: neg Lung s: negative, Percussion normal. Good diaphragmatic excursion. Lungs clear Heart: negative, PMI normal . No lifts, heaves, or thrills. RRR. No murmurs, clicks gallops or rub Peripheral pulses: radial=4/4, femoral=4/4, popliteal=4/4, dorsalis pedis=4/4, ASSESSMENT: Hyperlipidemia DIABETES UNCOMPL ADULT-T YPE II [250.00] Plan: 1) Medication: patient asks to go off both LIPITOR and Glucophage 500 bid wit h weight loss and exercise program. Will recheck in 4-6 weeks. FLU VACCINE, 3 YRS +, IM [81004] Orde r #: [id number] Class: Normal CONSULT TO OPHTHALMOLOGY [9024] Order #: [id number] Class: External referral 2) Low fat, low cholesterol diet 3) Regular aerobic exercise 4) Recheck in 2 months, sooner shoul d new symptoms or problems arise. Patient Education: Reviewed risks of elevated lipids and principle s of treatment. documented in this encounter Nursing Notes 07/03/2002 8:15 AM CST >> KARISSA CHAU 07/03/2002 8:24 am Immunizations are up to date. Questioned patient about current smoking habits. Pt. quit smoking some time ago. documented in this encounter Plan of Treatment Not on filedocumented as of this encounter Procedures Procedure Name Priority Date/Time Associated Diagnosis Comme nts ZZ OPHTHALMOLOGY Routine 01/02/2003 Diabetes Uncompl ADULT REFERRAL Adult-Type Ii HCL GLYCATED Routine 07/04/2002 7:07 Diabetes Uncompl Results for this HEMOGLOBIN AM LEARNING CENTER INSTRUCTOR Adult-Type Ii procedure are in Mixed Hyperlipidemia the res ults section. HCL LIPID PANEL Routine 07/04/2002 5:36 Diabetes Uncompl Resul ts for this AM LEARNING CENTER INSTRUCTOR Adult-Type Ii procedure are in Mixed Hyperlipidemia the res ults section. HCL AST Routine 07/04/2002 5:36 Diabetes Uncompl Results for this AM LEARNING CENTER INSTRUCTOR Adult-Type Ii procedure are in Mixed Hyperlipidemia the res ults section. ZZCL AFF Routine 07/03/2002 10:52 Diabetes Uncompl Results for this MICROALBUMIN, AM LEARNING CENTER INSTRUCTOR Adult-Type Ii procedure are in SEMIQUANTT Mixed Hyperlipidemia the res ults section. CL AFF GLUCOSE, Routine 07/03/2002 9:10 Diabetes Uncompl Resul ts for this FASTING AM LEARNING CENTER INSTRUCTOR Adult-Type Ii procedure are in Mixed Hyperlipidemia the res ults section. HC VENOUS COLLECTION Routine 07/03/2002 8:32 Diabetes Uncompl AM LEARNING CENTER INSTRUCTOR Adult-Type Ii Mixed Hyperlipidemia documented in this encounter Results CONSULT TO OPHTHALMOLOGY (01/02/2003) Narrative This result has an attachment that is no t available. Bailey Doran MD REFERRAL (ABNORMAL) HEMOGLOBIN A1C (07/04/2002 7:07 AM LEARNING CENTER INSTRUCTOR) P athologist Signature Hemoglobin A1C 6.4 (H) [facility] Specimen (Source) Anatomical Location Collection Method / Collectio n Time Received Time / Laterality Volume 07/03/2002 Narrative [facility] - 07/04/2002 7:07 AM LEARNING CENTER INSTRUCTOR ?REFERENCE RANGE: ??NON-DIABETIC <6.0% THE [place] [employer] RECOMM ENDS THAT THE GOAL OF THERAPY SHOULD BE A HEMOGLOBIN A 1C OF <7% AND THAT PHYSICIANS SHOULD REEVALUATE THE TR EATMENT REGIMEN IN PATIENTS WITH HEMOGLOBIN A1C VALUES CONSISTENTLY >8.0%. Bailey Doran MD LABORATORY Performing Organization Address [facility] Phon e Number ADAM MICHELLE AST (07/04/2002 5:36 AM LEARNING CENTER INSTRUCTOR) P athologist Signature Comments DNR [facility] AST 15 2 - 50 U/L [facility] Specimen (Source) Anatomical Location Collection Method / Collectio n Time Received Time / Laterality Volume 07/03/2002 Bailey Doran MD LABORATORY Performing Organization Address [facility] Phon e Number ADAM MICHELLE (ABNORMAL) A.M.A. LIPID PANEL (07/04/2002 5:36 AM LEARNING CENTER INSTRUCTOR) [facility] Method Time Signature Comments DNR [facility] Triglycerides 199 (H) <150 MG/DL [facility] Cholesterol 172 <200 MG/DL [facility] Cholesterol 10 PERCENTILE [facility] Percentile HDL Cholesterol 40 >39 MG/DL [facility] LDL Cholesterol 92 <130 MG/DL [facility] Calculated Cholesterol/HDL 4.3 <5.0 [facility] Ratio Specimen (Source) Anatomical Location Collection Method / Collectio n Time Received Time / Laterality Volume 07/03/2002 Bailey Doran MD LABORATORY Performing Organization Address [facility] Phon e Number [facility] MICROALBUMIN, SEMIQUANT (07/03/2002 10:52 AM LEARNING CENTER INSTRUCTOR) P athologist Signature Microalbumin 10 [facility] Narrative [facility] - 07/03/2002 10:52 AM LEARNING CENTER INSTRUCTOR CRE 300mg/dl A:C <30 mg/g normal Bailey Doran MD LABORATORY Performing Organization Address City/State/ZIP Code Phon e Number [facility] (ABNORMAL) GLUCOSE, FASTING (07/03/2002 9:10 AM LEARNING CENTER INSTRUCTOR) athologist Signature Glucose 132 (A) 60 - 120 [facility] mg/dL Specimen (Source) Anatomical Collection Method Collection Time Re ceived Time Location / / Volume Laterality 07/03/2002 9:10 AM LEARNING CENTER INSTRUCTOR Bailey Doran MD LABORATORY Performing Organization Address City/State/ZIP Code Phon e Number [facility] documented in this encounter Visit Diagnoses Diagnosis Type II or unspecified type diabetes vijaya litus without mention of complication, not stated as uncontrolled - Primary Mixed hyperlipidemia Need vaccination-viral disease Need for prophylactic vaccination and in oculation against other viral diseases documented in this encounter Care Teams Geophysical Support Specialist Relationship Specialty Start Date End Date Bailey Doran MD PCP - General 09/20/00 03/25/[address], [address] [place] [address] documented as of this encounter
--- OUTSIDE RECORDS SUMMARY | 2022-07-09 12:42 | XMS_ITS | Encounter Summary ---
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 HISTORY OF PRESENT ILLNESS: The patient is a 59-year-old white male with a past medical history significant for diet-controlled diabetes mellitus who was in his usual state of health until Wednesday. At that time the patient started experiencing epigastric abdominal pain. He described this as a dull pressure. At the same time he had left anterior chest pain. He described this pain as a pressure. The patient states that his pain occurred simultaneously. He is unable to tell me which pain started first. He stated, As soon as I get the abdominal pain I will get the chest pain. The patient states his pain will last for a few minutes, less than five or ten minutes, and then he will have complete resolution between his pain. He had about three episodes on Wednesday and about four episodes on Wednesday. He was at work and came home. He noticed that his pain was somewhat better with activity. He does admit to nausea, but he denies any vomiting or diarrhea. The patient denies any back pain or radiation of his pain. He says it was located in the epigastrium and left anterior chest area. No propagation of the pain. The patient denies ever having this pain before. The patient again stated that his pain is somewhat better with ambulation but, in reality, nothing makes it better and nothing makes it worse. The patient denies any headaches, vision problems or sore throat. He denies any shortness of breath. No dysuria or hematuria. No lip swelling. No rashes. No numbness or tingling. No other complaints are voiced. PAST MEDICAL HISTORY: Diet-controlled diabetes mellitus. He apparently lost a significant amount of weight and they are watching this. PAST SURGICAL HISTORY: Cholecystectomy. 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 He quit smoking 30 years ago; no drug use; occasional alcohol use. FAMILY HISTORY: Mother with a history of congestive heart failure and coronary artery disease. REVIEW OF SYSTEMS: As noted above. All other systems are negative. PHYSICAL EXAMINATION: Vitals: BP 156/107; 162/108 right arm. Heart rate 67. Temperature 96.2. Respiratory rate 18. O2 sats 95% on room air. GENERAL: This is a well-appearing male. He is sitting up in bed. He is cooperative and pleasant with the exam. HEENT: Head - normocephalic and atraumatic. Ears - bilaterally pearly white. Eyes - pupils are equal and reactive to light. Nose - patent. Throat - uvula is midline. There is no exudate. NECK: Supple. Trachea is midline. LUNGS: Clear to auscultation bilaterally. CARDIOVASCULAR: S1 and S2. No murmurs are appreciated. He is noted to have frequent PVCs. He is currently on monitors and I noticed that, but his rate is regular. ABDOMEN: Soft. There is no tenderness to palpation. The location of his pain is in the epigastrium, by palpation. No guarding or rebound. There are no abdominal masses. He has 2+ femoral pulses. EXTREMITIES: He has 2+ radial pulses and 2+ dorsalis pedis pulses. No lower extremity edema. SKIN: No petechiae or purpura. PSYCHIATRIC: Intact. NEUROLOGIC: Strength is 5/5 in the upper extremities and 5/5 in the lower extremities. EMERGENCY DEPARTMENT PLAN: An IV was started. The patient was placed on cardiac, blood pressure and pulse oximetry monitors. He was given two liters of oxygen via nasal cannula. He had an initial EKG which was evaluated by me. This shows the patient to have a ventricular rate of 83 after a ventricular rate of 79. He did have what appeared to be premature atrial contractions after every QRS. He did have ST segment elevations in leads V2, V3, V4 and V5. A second EKG was done and this again shows the patient to have a ventricular rate of 83. It again shows the patient to have ST segment elevations in leads V2, V3, V4 and V5 concerning for an anterolateral myocardial infarction. After review the patient was given aspirin, nitroglycerin and morphine with a significant decrease in his pain. A third EKG was done when he was almost pain-free - he stated his pain was a 2/10 - and again the anterolateral ST segment changes were noted. At this time I had a chance to speak with Cardiology at [facility], Dr. Jadiel Rivera, regarding the patient. He accepted the patient for transfer. We decided to start her on ReoPro. The patient was given aspirin, nitroglycerin and morphine. He was started on Heparin per the weight protocol. He was also started on ReoPro. A fourth EKG with barely minimal pain again shows ST segment elevation in leads V2, V3, V4 and V5, and a Q wave in lead III. The patient was also given beta- blockers. His pain was significantly better. The patient was then transferred acutely via ICLS to [facility], laborer ammunition assembly under Dr. Jadiel Rivera, for angiography and further evaluation. The patient was hemodynamically stable and chest pain-free upon transfer. I spoke with the patient's . All questions were answered. Please note that I had a chance to review his chemistry workup. His potassium was slightly elevated at 5.5 - it was hemolyzed, glucose was slightly elevated at 158, liver function tests were within normal limits, coagulations were normal, white blood cell count was slightly elevated at 13.4 with slightly elevated neutrophils at 76%, platelet count was normal, troponin was 0.36 and myoglobin was 43. The patient had a chest x-ray which was evaluated by me. This shows calcification of the aorta, but no pulmonary edema and no cardiomegaly. There was a slight elevation of the left hemidiaphragm. EMERGENCY DEPARTMENT DIAGNOSIS: Acute myocardial infarction. PLAN: The patient was transferred via ICLS to [facility] for further evaluation in a stable cardiac condition. Critical care time spent with the patient was 40 minutes. [id number] _ JAYE ADAMS MD [place]: Document: [id number] CC: JAYE ADAMS MD [place], [place] Name: MR#: RODOLFO [id number] EMERGENCY ROOM ENCOUNTER Page 3 of 3 LCN: ERA DSC: 03/17/2005 [place], [place] Name: MR#: RODOLFO HARTLEY [id number] : Admit Date: Account #: 1945 03/17/2005 [id number] Doctor: JAYE ADAMS MD EMERGENCY ROOM ENCOUNTER Page 1 of 3 BLOWER documented in this encounter Plan of Treatment Not on filedocumented as of this encounter Visit Diagnoses Not on filedocumented in this encounter Care Teams Handle Finisher Relationship Specialty Start Date End Date Andrey Tamez MD PCP - General 03/26/09 Bailey Doran MD PCP - General 09/20/00 03/25/[address], [address] [place] [address] documented as of this encounter
--- OUTSIDE RECORDS SUMMARY | 2022-07-09 12:42 | XMS_ITS | Encounter Summary ---
:1945 Author Organization [facility] Address [address] [place] [address] Care Team Providers Name Role Phone Andrey Tamez MD Primary Care Provider Bailey Doran MD Primary Care Provider Encounter Details Date Type Department Care Team Description 03/18/2005 Historic Results [facility] Everton Rivera [place] Eva Mccoy MD [address] [address] [phone] Social History Tobacco Use Types Packs/Day Years Used Date Smoking Tobacco: Former Cigarettes 0.5 16 Quit : 09/06/1978 Alcohol Use Standard Drinks/Week Comments Yes 10 (1 standard drink = 0.6 oz pure alcoh ol) 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 GLUCOSE BY METER Routine 03/18/2005 11:28 Results for this AM CDT procedure are i n the results section. TROPONIN I Routine 03/18/2005 7:20 AM Results f or this CDT procedure are i n the results section. HEMOGRAM DIFFERENTIAL Routine 03/18/2005 7:20 AM Results for this AND PLATELET CDT procedure are i n the results section. UREA NITROGEN (BUN) Routine 03/18/2005 7:20 AM Re sults for this CDT procedure are i n the results section. POTASSIUM Routine 03/18/2005 7:20 AM Results f or this CDT procedure are i n the results section. HOMOCYSTEINE Routine 03/18/2005 7:20 AM Results f or this CDT procedure are i n the results section. HEMOGLOBIN A1C Routine 03/18/2005 7:20 AM Results for this CDT procedure are i n the results section. CREATININE Routine 03/18/2005 7:20 AM Results f or this CDT procedure are i n the results section. GLUCOSE BY METER Routine 03/18/2005 6:21 AM Resul ts for this CDT procedure are i n the results section. documented in this encounter Results Partial thromboplastin time (03/18/2005 11:05 PM CDT) athologist Signature PTT 31 22 - 37 sec [facility] Specimen Anatomical Collection Method Collection Time Receive d Time (Source) Location / / Volume Laterality 03/18/2005 11:05 03/18/2005 PM CDT 11:15 PM CDT Jadiel Rivera MD LAB - BLOOD ORDERABLES Performing Organization Address City/State/ZIP Code Phon e Number [facility] (ABNORMAL) Glucose by meter (03/18/2005 11:28 AM CDT) athologist Signature Glucose 135 (H) 60 - 110 [facility] mg/dL Specimen Anatomical Collection Method Collection Time Receive d Time (Source) Location / / Volume Laterality 03/18/2005 11:28 03/19/2005 AM CDT 10:00 AM CDT Jadiel Rivera MD LAB - BEAKER POCT Performing Organization Address City/State/ZIP Code Phon e Number [facility] (ABNORMAL) Troponin I (03/18/2005 7:20 AM CDT) athologist Signature Troponin I 126.97 (HH) 0.00 - [facility] 0.40 ug/L Specimen (Source) Anatomical Collection Method Collection Time Re ceived Time Location / / Volume Laterality 03/18/2005 7:20 AM 5 CDT Jadiel Rivera MD LAB - BLOOD ORDERABLES Performing Organization Address City/State/ZIP Code Phon e Number [facility] Urea nitrogen (03/18/2005 7:20 AM CDT) athologist Signature Urea Nitrogen 19 7 - 30 [facility] mg/dL Specimen (Source) Anatomical Collection Method Collection Time Re ceived Time Location / / Volume Laterality 03/18/2005 7:20 AM 5 CDT Jadiel Rivera MD LAB - BLOOD ORDERABLES Performing Organization Address City/State/ZIP Code Phon e Number [facility] Potassium (03/18/2005 7:20 AM CDT) athologist Signature Potassium 4.0 3.4 - 5.3 [facility] mmol/L Specimen (Source) Anatomical Collection Method Collection Time Re ceived Time Location / / Volume Laterality 03/18/2005 7:20 AM 5 CDT Jadiel Rivera MD LAB - BLOOD ORDERABLES Performing Organization Address City/State/ZIP Code Phon e Number [facility] Creatinine (03/18/2005 7:20 AM CDT) athologist Signature Creatinine 1.18 0.80 - [facility] 1.50 mg/dL GFR Estimate 67 >60 [facility] mL/min/1.7 m2 GFR Estimate If >80 >60 [facility] Black mL/min/1.7 m2 Specimen (Source) Anatomical Collection Method Collection Time Re ceived Time Location / / Volume Laterality 03/18/2005 7:20 AM 5 CDT Jadiel Rivera MD LAB - BLOOD ORDERABLES Performing Organization Address City/State/ZIP Code Phon e Number [facility] Homocysteine (03/18/2005 7:20 AM CDT) athologist Signature Homocysteine 7.5 4.0 - 12.0 [facility] umol/L umol/L Comment: A normal plasma homocysteine level rules out homocystinuria homozygote and defects involving the remethylation of homocysteine. ??The heterozygous state for cystathionine betasynthase (CBS) is best tested by methionine loading. Jadiel Lawrence, Ph.D. Specimen (Source) Anatomical Collection Method Collection Time Re ceived Time Location / / Volume Laterality 03/18/2005 7:20 AM 5 CDT Jadiel Rivera MD LAB - BLOOD ORDERABLES Performing Organization Address City/State/ZIP Code Phon e Number [facility] (ABNORMAL) Hemoglobin A1c (03/18/2005 7:20 AM CDT) P athologist Signature Hemoglobin A1C 6.1 (H) 4.3 - 6.0 [facility] % Specimen Anatomical Collection Method Collection Time Receive d Time (Source) Location / / Volume Laterality 03/18/2005 7:20 AM 5 5:55 CDT AM CDT Jadiel Rivera MD LAB - BLOOD ORDERABLES Performing Organization Address City/State/ZIP Code Phon e Number [facility] (ABNORMAL) Hemogram differential and platelet (03/18/2005 7:20 AM CDT) Patholo gist Method Time Signature MCV 97 78 - 100 [facility] fl MCH 33.3 (H) 26.5 - [facility] 33.0 pg MCHC 34.3 32.0 - [facility] 36.0 g/dL RDW 12.5 10.0 - [facility] 15.0 % WBC 11.2 (H) 4.0 - [facility] 11.0 10e9/L RBC Count 4.38 (L) 4.4 - 5.9 [facility] 10e12/L Hemoglobin 14.6 13.3 - [facility] 17.7 g/dL Hematocrit 42.5 40.0 - MIS[facility] 53.0 % % Neutrophils 70 40 - 75 % [facility] % Lymphocytes 15 (L) 20 - 48 % [facility] % Monocytes 13 (H) 0 - 12 % [facility] % Eosinophils 0 0 - 6 % [facility]IS[facility] % Basophils 2 0 - 2 % [facility] Platelet Count 179 150 - 450 [facility] 10e9/L Absolute 7.9 1.6 - 8.3 [facility] Neutrophil 10e9/L Absolute 1.7 0.8 - 5.3 [facility] Lymphocytes 10e9/L Absolute 1.5 (H) 0.0 - 1.3 [facility] Monocytes 10e9/L Absolute 0.0 0.0 - 0.7 [facility] Eosinophils 10e9/L Absolute 0.2 0.0 - 0.2 [facility] Basophils 10e9/L Diff Method Automated [facility] Method Specimen Anatomical Collection Method Collection Time Receive d Time (Source) Location / / Volume Laterality 03/18/2005 7:20 AM 5 5:58 CDT AM CDT Jadiel Rivera MD LAB - BLOOD ORDERABLES Performing Organization Address City/State/ZIP Code Phon e Number [facility] (ABNORMAL) Glucose by meter (03/18/2005 6:21 AM CDT) P athologist Signature Glucose 124 (H) 60 - 110 [facility] mg/dL Specimen Anatomical Collection Method Collection Time Receive d Time (Source) Location / / Volume Laterality 03/18/2005 6:21 AM 5 9:58 CDT AM CDT Jadiel Rivera MD LAB - BEAKER POCT Performing Organization Address City/[facility]/ZIP Code Phon e Number [facility] documented in this encounter Visit Diagnoses Not on filedocumented in this encounter Care Teams Communications Engineer Relationship Specialty Start Date End Date Andrey Tamez MD PCP - General 03/26/09 Bailey Doran MD PCP - General 09/20/00 03/25/[address] [facility] [address] [place] [address] documented as of this encounter
--- OUTSIDE RECORDS SUMMARY | 2022-07-09 12:42 | XMS_ITS | Encounter Summary ---
:1945 Author Organization [place] Address [address] [place] [address] Care Team Providers Name Role Phone Andrey Tamez MD Primary Care Provider Bailey Doran MD Primary Care Provider Andrey Tamez MD Unavailable Andrey Tamez MD Unavailable Encounter Details Date Type Department Care Team Description 03/17/2005 Historic Results [facility] Heart Unknown, [facility] ider [address] [address] Social History Tobacco Use Types Packs/Day Years Used Date Smoking Tobacco: Former Cigarettes 0.5 16 Quit : 09/06/1978 Alcohol Use Standard Drinks/Week Comments Yes 10 (1 standard drink = 0.6 oz pure alcoh ol) 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 Provider Scan CV ELECTROPHYSIOLOGY ORDERAB LES documented in this encounter Visit Diagnoses Not on filedocumented in this encounter Care Teams Cold Storage Worker Relationship Specialty Start Date End Date Andrey Tamez MD PCP - General 03/26/09 Bailey Doran MD PCP - General 09/20/00 03/25/[address], [address] [place], [place] [id number] Andrey Tamez MD PCP - Assigned PCP 09/11/12 11/08/18 [address] [place], [place] [address] Andrey Tamez MD Assigned PCP 09/11/12 09/07/20 [address] [place], [place] [id number] documented as of this encounter
--- OUTSIDE RECORDS SUMMARY | 2022-07-09 12:42 | XMS_ITS | Encounter Summary ---
:1945 Author Organization [place] Address [address] [place] [address] Care Team Providers Name Role Phone Andrey Tamez MD Primary Care Provider Bailey Doran MD Primary Care Provider Andrey Tamez MD Unavailable Andrey Tamez MD Unavailable Encounter Details Date Type Department Care Team Description 03/30/2005 Office Visit-[facility] Heart Unknown, Yassine tay MD [address] [address] Social History Tobacco Use Types Packs/Day Years Used Date Smoking Tobacco: Former Cigarettes 0.5 16 Quit : 09/06/1978 Alcohol Use Standard Drinks/Week Comments Yes 10 (1 standard drink = 0.6 oz pure alcoh ol) 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 OK-Acute Anterior, 410.11 2. - CAD, 414.00 3. - Hyperlipidemia, 272.4 4. - Hypertension, benign, 401.1 5. Diabetes Mellitus-NIDD/circ dis/uncont, 250.72 ALLERGIES MEDICATIONS (including any changes made today) 1. Plavix 75 mg, 1 p.o. q.d. 2. Aspirin 81 mg, 1 p.o. q.d. 3. Metoprolol Tartrate 50 mg, 1 p.o. b.i.d. 4. Lisinopril 5mg, 1 p.o. q.d. 5. Vytorin 10mg /20 mg, 1 p.o. q.d. 6. Nitroglycerin 0.4 mg, Take as Directed CHIEF COMPLAINTS f/u post-hospital discharge Mr. Hartley is a delightful 59-year-old gentleman who presents to [facility] today for afollow-up visit regarding his recent hospitalization. As you recall, this patient had presented withan acute anterior wall OK and underwent emergent coronary angiography with successful stenting to his LAD although there was no re-flow episode for a period of time following stenting. He did quite well postoperatively. His angiogram revealed an ejection fraction of 35%. He did have mild to moderate disease in the right coronary artery and obtuse marginal branch. The patient was started on Plavix, aspirin, metoprolol, lisinopril and Vytorin. He seems to be tolerating all of these medications withoutany difficulty. 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 He is back to using his treadmill on a daily basis without any difficulty. He is also going to startin cardiac rehab tomorrow and continue this for a couple of weeks. He has also lost approximately 5 pounds since his hospitalization due to the exercise as well as changes in his diet. He also has had borderline type 2 diabetes mellitus which was followed during his hospitalization. However, I do not have these lab results available to me today. He is not on any medications and will follow-up with Dr. Carlyle Angulo for further recommendations. He currently denies any chest pain or pressure, light-headedness or dizziness, syncope or near-syncope, dyspnea, orthopnea, PND, or peripheral edema. All other review of systems, past medical history, and physical examination findings are noted below. PAST HISTORY Past Medical Illnesses: diabetes mellitus-poorly controlled, hypertension-uncontrolled, hyperlipidemia Past Cardiac Illnesses: chest pain, positive family hx cvd, coronary artery disease, S/P myocardial infarction-anterior 2004 Cardiology Procedures-Invasive: cardiac cath (left) March 2005 Cardiac Cath Results: occlusion mid LAD, successful flori to LAD Left Ventricular Ejection Fraction: 35% per cath FAMILY HISTORY: Father - mphesema; Mother - Age 75, of heart disease; Sibling(s) - alive and well; Brother 1 -Age 30, shot/unsure; CARDIAC RISK FACTORS SOCIAL HISTORY Alcohol Use - drinks occasionally and beer; Smoking - used to smoke but quit and 1980; Diet - low cholesterol, low sodium (less than 2 grams) and low fat Diet; Exercise - exercise is limited due to physical disability and walking; Seat Belt Use - always; Occupation - [employer]; Residence - lives with ; Place of - [place]; Hours Worked - 40 hours per week; REVIEW OF SYSTEMS GENERAL denies recent weight loss, weight gain, fever or chills or change in exercise tolerance. INTEGUMENTARY denies any change in hair or nails, rashes, or skin lesions. EYES denies diplopia, history of glaucoma or visual field defects. EARS, NOSE, THROAT, MOUTH denies any hearing loss, epistaxis, hoarseness or difficulty speaking. RESPIRATORY negative for dyspnea CARDIOVASCULAR negative for chest pain, negative for palpitations, positive for light headedness ABDOMINAL denies ulcer disease, hematochezia or melena. MUSCULOSKELETAL denies any history of arthritic symptoms or back problems. NEUROLOGICAL denies any history of recurrent strokes, headaches, TIA, or seizure disorder. PSYCHIATRIC denies any history of depression, substance abuse or change in cognitive functions. ENDOCRINE denies any history of hyperlipidemia, thyroid disease or diabetes mellitus. HEMATOLOGICAL/IMMUNOLOGIC denies any food allergies, seasonal allergies, bleeding disorders. PHYSICAL EXAMINATION VITAL SIGNS: Blood Pressure: 118/60 Sitting, Left arm, large cuff Pulse- 60.00/min. Weight- 181.00 lbs. Height- 70.00 Temperature- .00 CONSTITUTIONAL cooperative, [...] appropriate, oriented to time, person and place. IMPRESSION AND PLAN: 1. An acute anterior wall OK with emergent stenting to the LAD. The patient, however, did not have re-flow immediately following stenting. His ejection fraction was estimated at approximately 35%. He was started on KELI inhibitors as well as beta-blockers and will have a repeat echocardiogram to evaluate the recovery of his left ventricular function in one months time. He will remain on Plavix for a minimum of 6-9 months and aspirin indefinitely. 2. Dyslipidemia. The patient was started on Vytorin 10/20mg once a day. He seems to tolerate this without any myalgias or muscle weakness. He is scheduled to have a follow-up fasting lipid profile and ALT in approximately one months time. I would shoot fora triglyceride less than 150, HDL greater than 40 and LDL less than 70. 3. Coronary artery disease. The patient did have a 30-40% RCA and obtuse marginal lesion noted. Aggressive risk factor modification would be recommended. 4. Type 2 diabetes mellitus with no medications and seems to be controlled with diet. This patient will follow-up with Dr. Angulo in regards to this issue. 5. Hypertension which seems to be well controlled on his current medical regimen. I have spent also today discussing getting regular routine aerobic exercise as well as making some dietary changes in hopes that he can continue to lose weight appropriately. This patient will follow-up with Dr. Foreman following his echocardiogram and fasting lipid profile. If he should have any problems in the interim, certainly I would be happy to see him sooner. CHAD Boyd documented in this encounter Plan of Treatment Not on filedocumented as of this encounter Visit Diagnoses Not on filedocumented in this encounter Care Teams Chemist Physical Relationship Specialty Start Date End Date Andrey Tamez MD PCP - General 03/26/09 Bailey Doran MD PCP - General 09/20/00 03/25/[address], [address] [place] [address] Andrey Tamez MD PCP - Assigned PCP 09/11/12 11/08/18 [address] [place] [address] Andrey Tamez MD Assigned PCP 09/11/12 09/07/20 [address] [facility] [address] [place], [place] [phone] documented as of this encounter
--- OUTSIDE RECORDS SUMMARY | 2022-07-09 12:42 | XMS_ITS | Encounter Summary ---
:1945 Author Organization [place] Address [address] [place] [address] Care Team Providers Name Role Phone Bailey Doran MD Primary Care Provider Encounter Details Date Type Department Care Team Description 04/12/2008 Discharge Summary [facility] Lizeth Rogers (Concrete Block Molder) [facility] [address] [facility] [address] [place], [place] [id number] (Wo rk) Social History Tobacco Use Types Packs/Day Years Used Date Smoking Tobacco: Former Cigarettes 0.5 16 Quit : 09/06/1978 Alcohol Use Standard Drinks/Week Comments Yes 10 (1 standard drink = 0.6 oz pure alcoh ol) 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 2. Diet-controlled diabetes mellitus. 3. Hypertension. 4. Coronary artery disease. 5. Hyperlipidemia. 6. Cholecystectomy. 7. Peripheral neuropathy. DISCHARGE MEDICATIONS: 1. Vytorin 10/20 mg p.o. q. day. 2. The patient has been taken off his Lisinopril 5 mg a day and placed on Altace 5 mg p.o. q. day, by Dr. Thomas of Neurology. 3. Lopressor 50 mg p.o. b.i.d. 4. Plavix 75 mg p.o. q. day. DISCHARGE FOLLOW-UP: The patient is to have a transesophageal echocardiogram performed on Monday 04/16 with follow-up thereafter with Dr. Thomas of Neurology. Follow up with primary physician in 7-10 days. HOSPITAL COURSE: Rodolfo Hartley is a 62-year-old male who was admitted with a right posterior frontal CVI after presenting with slurred speech and left facial droop. You are referred to Dr. Scott Loja'sadmission H&P dated 04/12/2008. On presentation, the patient was evaluated in the Emergency Department with a CBC which was normal. INR of 1.01, PTT of 27. Basic metabolic panel was unremarkable withthe exception of a glucose 123. Troponin less than 0.012. The patient underwent MRI of the brain which showed acute nonhemorrhagic right posterior frontal infarct with no evidence of intracranial hemorrhage or mass effect. The patient also had an MRA of the neck which showed negative MRA angiography of the neck without and with contrast. The patient had a chest x-ray that was unremarkable. He actually had a urinalysis that was negative, a hemoglobin A1c of 7.1. Lipid panel showed a total cholesterolof 146 with LDL of 81, HDL of 37. Vitamin B12 level is pending. The patient was seen in consultationby Dr. Thomas of Neurology who recommended that the patient continue on Plavix, discontinue aspirin,have a transesophageal echocardiogram with bubble study, be assessed by OT, PT and speech. The patient was seen in consultation by speech pathology who recommended that the patient go on a regular dietwith thin liquids and felt he was safe to discharge home. He was seen by OT and felt to be safe to discharge home. He was seen by PT and was felt to have no PT needs. The patient is discharged in stable condition with plans for follow-up per neurology and the patient's primary care physician. Electronically signed on 04/14/2008 15:14 by LIZETH ROGERS MD MT: [email or web address] Name: RODOLFO HARTLEY Account: [id number] : 1945 Admit Date: Discharge Date: 04/13/2008 Document: [id number] cc: Lior Thomas MD [facility] documented in this encounter Plan of Treatment Not on filedocumented as of this encounter Visit Diagnoses Not on filedocumented in this encounter Care Teams Pillowcase Turner Relationship Specialty Start Date End Date Bailey Doran MD PCP - General 09/20/00 03/25/09 [address] , [facility] [address] [place] [address] documented as of this encounter
--- OUTSIDE RECORDS SUMMARY | 2022-07-09 12:42 | XMS_ITS | Encounter Summary ---
:1945 Author Organization [place] Address [address] [place] [address] Care Team Providers Name Role Phone Andrey Tamez MD Primary Care Provider Bailey Doran MD Primary Care Provider Encounter Details Date Type Department Care Team Description 04/06/2005 Historic Results [facility]Anast[facility] Madsen MD Hospitalists [address] [facility] [address] [place], [place] [address] (Wo rk) Social History Tobacco Use Types Packs/Day Years Used Date Smoking Tobacco: Former Cigarettes 0.5 16 Quit : 09/06/1978 Alcohol Use Standard Drinks/Week Comments Yes 10 (1 standard drink = 0.6 oz pure alcoh ol) 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 GLUCOSE BY METER Routine 04/06/2005 3:04 PM Resul ts for this CDT procedure are i n the results section. documented in this encounter Results Glucose by meter (04/06/2005 3:55 PM CDT) athologist Signature Glucose 85 60 - 110 MISYS mg/dL Specimen Anatomical Collection Method Collection Time Receive d Time (Source) Location / / Volume Laterality 04/06/2005 3:55 PM 5 8:00 CDT AM CDT Yazan FUNES - ANGELO POCT Performing Organization Address City/State/ZIP Code Phon e Number MISYS Glucose by meter (04/06/2005 3:04 PM CDT) P athologist Signature Glucose 104 60 - 110 MISYS mg/dL Specimen Anatomical Collection Method Collection Time Receive d Time (Source) Location / / Volume Laterality 04/06/2005 3:04 PM 5 8:00 CDT AM CDT Yazan FUNES - ANGELO POCT Performing Organization Address City/State/ZIP Code Phon e Number MISYS documented in this encounter Visit Diagnoses Not on filedocumented in this encounter Care Teams Senior Nurse Manager Relationship Specialty Start Date End Date Andrey Tamez MD PCP - General 03/26/09 Bailey Doran MD PCP - General 09/20/00 03/25/[address], [address] [place] [address] documented as of this encounter
--- OUTSIDE RECORDS SUMMARY | 2022-07-09 12:42 | XMS_ITS | Encounter Summary ---
:1945 Author Organization [place] Address [address] [place] [address] Care Team Providers Name Role Phone Bailey Doran MD Primary Care Provider Encounter Details Date Type Department Care Team Description 04/12/[address] 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 HISTORY OF PRESENT ILLNESS: Rodolfo Hartley is a 62-year-old male who comes in by ambulance after he was witnessed to have TIA-like symptoms at work. Apparently he had a left facial droop, some drooling and some slurred speech. His symptoms lasted for about 20 minutes. He did not have a headache, no numbness, tingling or weakness to any of his extremities. He did have a little bit of numbness to the left side of his face. He has never had anything like this before, and now he says he feels fine. PAST MEDICAL HISTORY: 1. Coronary artery disease, status post NC and stent placement. 2. Hypercholesterolemia. 3. Hypertension. MEDICATIONS: 1. Lisinopril. 2. Toprol. 3. Vytorin. 4. Aspirin. ALLERGIES: No known drug allergies. HABITS: He is a past smoker, drinks alcohol occasionally, denies illicit drug use. REVIEW OF SYSTEMS: See HPI, all others negative. PHYSICAL EXAMINATION: VITAL SIGNS: Afebrile at 97.6, blood pressure 170/94, heart rate 71, respiratory rate 20, satting 97% on room air. GENERAL: This is a pleasant man who is awake, alert, cooperative, nontoxic in appearance. HEENT: Head is atraumatic. Pupils are equal and reactive, sclerae nonicteric, conjunctivae normal in appearance. NECK: Supple, nontender. CARDIAC: Regular rate and rhythm, no murmurs, rubs or gallops appreciated. He does have a slight right carotid bruit. PULSES: He has 2+ radial and dorsalis pedis pulses bilaterally. LUNGS: Clear to auscultation bilaterally. ABDOMEN: Positive bowel sounds, soft, nontender. EXTREMITIES: Atraumatic x4. NEUROLOGIC: Awake, alert and oriented x3. He may have a slight left facial droop still present. Cranial nerves II-XII are otherwise intact. Motor is 5/5 in all 4 extremities. Sensation is grossly intact to light touch throughout. DTRs are equal and symmetric, but diminished throughout. Rapid alternating movements and [id number]-nh-[id number] are within normal limits. Visual denton are intact. He has no pronatordrift. LABORATORY AND DIAGNOSTIC STUDIES: 1. EKG shows normal sinus rhythm, heart rate of 80. He does have inferior Q- waves, but no acute injury pattern with a normal axis. 2. Chest x-ray does not show anything acute. 3. MRI of his brain shows an acute right posterior frontal infarct, no hemorrhage. 4. CBC within normal limits. 5. INR 1.01, PTT 27. 6. Comprehensive metabolic panel within normal limits with the exception of a slightly elevated glucose of 123. 7. Troponin less than 0.012. EMERGENCY DEPARTMENT COURSE: The patient was seen and examined. He was connected to the school bus driver and pulse oximetry monitor. He had oxygen applied. He had an IV established, and bloods were drawn and sent. An EKG was obtained. He then went for an MRI/MRA of his head, neck and vessels which did show an acute infarct. He had a chest x-ray as well. After he returned from MRI he was given [id number] mg by mouth. PLAN: I subsequently spoke with Dr. Loja who is going to admit the patient to a neuro telemetry bed as an inpatient. I also spoke with Dr. Plasencia per Dr. Loja's request, and Dr. Plasencia will see the patient in consultation. IMPRESSION: Acute cerebrovascular accident. Electronically signed on 04/18/2008 22:59 by CHARIS LIPSCOMB MD MT: [id number] Name: RODOLFO HARTLEY MRN: [id number] Account: [id number] : 1945 Visit Date: 04/12/2008 Document: [id number] cc: Tom Plasencia MD Primary Care Physician documented in this encounter Plan of Treatment Not on filedocumented as of this encounter Visit Diagnoses Not on filedocumented in this encounter Care Teams Manager Aerospace Relationship Specialty Start Date End Date Bailey Doran MD PCP - General 09/20/00 03/25/09 [address] [facility] [address] [place] [address] documented as of this encounter
--- OUTSIDE RECORDS SUMMARY | 2022-07-09 12:42 | XMS_ITS | Encounter Summary ---
:1945 Author Organization [place] Address [address] [place] [address]. 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 GLUCOSE BY METER Routine 04/08/2005 3:09 PM Resul ts for this CDT procedure are i n the results section. documented in this encounter Results Glucose by meter (04/08/2005 4:04 PM CDT) athologist Signature Glucose 73 60 - 110 MISYS mg/dL Specimen Anatomical Collection Method Collection Time Receive d Time (Source) Location / / Volume Laterality 04/08/2005 4:04 PM 5 CDT 11:49 AM CDT Yazan STEPHENS POCT Performing Organization Address City/State/ZIP Code Phon e Number MISYS (ABNORMAL) Glucose by meter (04/08/2005 3:09 PM CDT) P athologist Signature Glucose 137 (H) 60 - 110 MISYS mg/dL Specimen Anatomical Collection Method Collection Time Receive d Time (Source) Location / / Volume Laterality 04/08/2005 3:09 PM 5 CDT 11:49 AM CDT Yazan STEPHENS POCT Performing Organization Address City/State/ZIP Code Phon e Number MISYS documented in this encounter Visit Diagnoses Not on filedocumented in this encounter Care Teams Can Striper Relationship Specialty Start Date End Date Andrey Tamez MD PCP - General 03/26/09 Bailey Doran MD PCP - General 09/20/00 03/25/09 [address] , [facility] [address] [place] [address] documented as of this encounter
--- OUTSIDE RECORDS SUMMARY | 2022-07-09 12:42 | XMS_ITS | Encounter Summary ---
:1945 Author Organization [place] Address [address] [place] [id number] Care Team Providers Name Role Phone Andrey Tamez MD Primary Care Provider Bailey Doran MD Primary Care Provider Andrey Tamez MD Unavailable Andrey Tamez MD Unavailable Encounter Details Date Type Department Care Team Description 03/26/2006 Historic Results [facility] Heart Unknown, [facility] ider [address] [address] Social History Tobacco Use Types Packs/Day Years Used Date Smoking Tobacco: Former Cigarettes 0.5 16 Quit : 09/06/1978 Alcohol Use Standard Drinks/Week Comments Yes 10 (1 standard drink = 0.6 oz pure alcoh ol) 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 Provider Scan CV ECHO ORDERABLES documented in this encounter Visit Diagnoses Not on filedocumented in this encounter Care Teams Programming Manager Relationship Specialty Start Date End Date Andrey Tamez MD PCP - General 03/26/09 Bailey Doran MD PCP - General 09/20/00 03/25/[address], [address] [place], [place] [id number] Andrey Tamez MD PCP - Assigned PCP 09/11/12 11/08/18 [address] [place], [place] [address] Andrey Tamez MD Assigned PCP 09/11/12 09/07/20 [address] [place], [place] [id number] documented as of this encounter
--- OUTSIDE RECORDS SUMMARY | 2022-07-09 12:42 | XMS_ITS | Encounter Summary ---
:1945 Author Organization [place] Address [address] [place] [address]. [place] [address] Care Team Providers Name Role Phone Andrey Tamez MD Primary Care Provider Bailey Doran MD Primary Care Provider Andrey Tamez MD Unavailable Andrey Tamez MD Unavailable Encounter Details Date Type Department Care Team Description 09/29/2007 Office Visit-[facility] Yazan Foreman [facility] [place] [address] [place] [address] [place] [address] (Wo rk) Social History Tobacco Use Types Packs/Day Years Used Date Smoking Tobacco: Former Cigarettes 0.5 16 Quit : 09/06/1978 Alcohol Use Standard Drinks/Week Comments Yes 10 (1 standard drink = 0.6 oz pure alcoh ol) 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 DATE: 09/29/2007 RODOLFO HARTLEY DATE OF : 1945 AGE: [age] years old Referring Physician: LASHON FERNÁNDEZ Referring Clinic: [facility] CURRENT DIAGNOSES 1. - CAD, 414.00 2. - Hyperlipidemia, 272.4 3. - Hypertension, benign, 401.1 4. Diabetes Mellitus-NIDD/circ dis/uncont, 250.72 5. VT-S/P Anterior, 412 6. PTCA-LAD FLORI stent 03/2005 for AMI, V45.82 7. - Cardiomyopathy Ischemic, 414.8 ALLERGIES NKA MEDICATIONS (prior to changes made today) 1. Nitroglycerin 0.4 mg, Take as Directed 2. Aspirin 325 mg, 1/2 tab b.i.d. 3. Metoprolol Tartrate 50 mg, 1 p.o. b.i.d. 4. Lisinopril 10 Mg, 1 p.o. b.i.d. 5. Vytorin 10mg /20 mg, 1 qHS CHIEF COMPLAINTS Followup of - CAD HISTORY OF PRESENT ILLNESS I had the pleasure of seeing Mr. Hartley today. This 62-year-old gentleman was seen for follow up ofhis coronary disease. He is now 21/2 years out from an acute anterior myocardial infarction that wastreated with emergent stenting of his LAD. Over the last six months, he has been stable. He has actually increased his activity level and has a more regular exercise program and is working out three days a week at his health club. He is actually feeling better with doing this and has more exercise tolerance. He keeps up with his peers and does not feel like he has any significant symptoms with activity or physical limitations. Specifically, there is no chest discomfort, dyspnea on exertion, chest tig htness, arm, neck, or jaw discomfort, or other ischemic symptoms. He is without orthopnea, palpitations, severe dizziness, syncope, or edema. He denies claudication, myalgias, or muscle weakness. He isnot taking his blood pressures as regularly as he used to. He is not checking his blood sugars. He has gained 8 to 10 pounds this year. Laboratory studies show his triglycerides have crept up to 166. Total cholesterol was 145. HDL was slightly declined at 35. LDL was stable at 77. ALT was normal. His cardiopulmonary exam was normal today. His ejection fraction has been around 40% on his last several echos. PAST HISTORY Past Medical Illnesses: hyperlipidemia, diabetes vwjbgvjd-ajc-tutsogk dependent, hypertension Past Cardiac Illnesses: chest pain, positive family hx cvd, coronary artery disease, S/P myocardial infarction-anterior 2004 Cardiology Procedures-Invasive: cardiac cath (left) March 2005, PTCA with intracoronary stent placement of LAD March 2005 Cardiology Procedures-Noninvasive: echocardiogram April 2005, echocardiogram March 2006 Cardiac Cath Results: occlusion mid LAD, successful flori to LAD Left Ventricular Ejection Fraction: EF 40-50% by Echo -April 2005, 45% by echo 03/11 PMHx Echo Results: 03/11 No definite apical thrombus; mild concentric LVH;LVSF reduced; EF=35%. Distal septal and apicalwall motion abnormality noted. SOCIAL HISTORY Alcohol Use - drinks occasionally and wine; Smoking - used to smoke but quit and 1980; Diet - low cholesterol, low sodium (less than 2 grams), low fat Diet and caffeine use-1-2 per day; Lifestyle - ; Exercise - some exercise and gym; Seat Belt Use - always; Occupation - [employer]; Residence - lives with ; Place of - [place]; Hours Worked - 40 hours per week; REVIEW OF SYSTEMS GENERAL weight gain INTEGUMENTARY denies any change in hair or nails, rashes, or skin lesions. EYES wears eye glasses/contact lenses EARS, NOSE, THROAT, MOUTH denies any hearing loss, epistaxis, hoarseness or difficulty speaking. RESPIRATORY denies dyspnea, snoring, cough, wheezing or hemoptysis. CARDIOVASCULAR per HPI ABDOMINAL denies ulcer disease, hematochezia or melena. MUSCULOSKELETAL denies any history of arthritic symptoms or back problems. NEUROLOGICAL denies any history of recurrent strokes, headaches, TIA, or seizure disorder. PSYCHIATRIC denies any history of depression, substance abuse or change in cognitive functions. ENDOCRINE hyperlipidemia HEMATOLOGICAL/IMMUNOLOGIC denies any food allergies, seasonal allergies, bleeding disorders. PHYSICAL EXAMINATION VITAL SIGNS: Blood Pressure: 130/80 Sitting, Left arm, large cuff Pulse- 70.00/min. Weight- 190.00 lbs. Height- 70.00 Temperature- .00 CONSTITUTIONAL cooperative, [...] respiratory excursion, no use of accessory muscles <FONT COLOR=#[id number]><FONT POINT=10> CARDIAC regular rhythm, S1 normal, S2 normal, [...] time, person and place. MEDICATIONS UPDATED/STARTED TODAY: Aspirin 325 mg, 1/2 tab b.i.d., DIRECTED Metoprolol Tartrate 50 mg, 1 p.o. b.i.d., #60 Lisinopril 10 Mg, 1 p.o. b.i.d., #60 Vytorin 10mg /20 mg, 1 qHS, #30 MEDICATIONS REFILLED/STOPPED TODAY: Aspirin 81 mg 1 p.o. q.d. #30 Physician Order <FONT COLOR=#[id number]><FONT POINT=10> IMPRESSION/PLAN: 1. Coronary artery disease, status post anterior myocardial infarction. He is stable without ischemic symptoms. 2. Ischemic cardiomyopathy, mild to moderate. He has no limitations. No symptoms. No heart failure. We will continue his current beta-tiki and KELI inhibitor therapy. 3. Hypertension. Blood pressure today is 130/80. Typically, it has been closer to 120/70. He will go back to checking it weekly at home and let us know if it is not averaging 120/70 or better. He has gained a little bit of weight. This may have some impact. 4. Dyslipidemia, mixed. He previously had been completely at goal.With his weight gain, his triglycerides have drifted up. His HDL has drifted down a little bit. I think that this is a combination of weight and diet with some reemergence of his glucose intolerance. We have set weight loss goals and diet for the next year today including a minimum of a 10 pound weight loss to get back to or below his previous stable weight and then we will work on further weight loss after that. I will have him continue his Vytorin at this time. 5. Risk factor intervention. I thinkthat this is generally going well other than his weight gain, which we are going to work on. He is not smoking. His blood pressure has been controlled. Continue to treat the lipids. He is on an exercise program. It was a pleasure seeing this gentleman doing well. I have renewed his medications at this time. I would appreciate seeing him again in a year.<FONT COLOR=#[id number]><FONT POINT=10> TODAYS ORDERS 1. F/U with Yazan Foreman MD 1 year 2. Treadmill Nuclear Study 1 year 3. Lipid profile/ALT 1 year Yazan Foreman M.D. documented in this encounter Plan of Treatment Not on filedocumented as of this encounter Visit Diagnoses Not on filedocumented in this encounter Care Teams Business Unit Controller Relationship Specialty Start Date End Date Andrey Tamez MD PCP - General 03/26/09 Bailey Doran MD PCP - General 09/20/00 03/25/[address], [facility] [address] [place] [address] Andrey Tamez MD PCP - Assigned PCP 09/11/12 11/08/18 [address] [place] [address] Andrey Tamez MD Assigned PCP 09/11/12 09/07/20 [address] [place] [address] documented as of this encounter
--- OUTSIDE RECORDS SUMMARY | 2022-07-09 12:42 | XMS_ITS | Encounter Summary ---
:1945 Author Organization [place] Address [address] [place] [address] Care Team Providers Name Role Phone Andrey Tamez MD Primary Care Provider Bailey Doran MD Primary Care Provider Andrey Tamez MD Unavailable Andrey Tamez MD Unavailable Encounter Details Date Type Department Care Team Description 03/22/2006 Office Visit-[facility] Heart Unknown, Yassine tay MD [address] [address] Social History Tobacco Use Types Packs/Day Years Used Date Smoking Tobacco: Former Cigarettes 0.5 16 Quit : 09/06/1978 Alcohol Use Standard Drinks/Week Comments Yes 10 (1 standard drink = 0.6 oz pure alcoh ol) 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 - CAD, 414.00 2. - Hyperlipidemia, 272.4 3. WI-S/P Anterior, 412 4. - Cardiomyopathy Ischemic, 414.8 5. Mural thrombus, 429.79 6. PTCA-LAD FLORI stent 03/2005 for AMI, V45.82 7. - Hypertension, benign, 401.1 8. Diabetes Mellitus-NIDD/circ dis/uncont, 250.72 ALLERGIES NKA MEDICATIONS (including any changes made today) 1. Aspirin 81 mg, 1 p.o. q.d. 2. Nitroglycerin 0.4 mg, Take as Directed 3. Vytorin 10mg /20 Mg, 1 p.o. q.d. 4. Metoprolol Tartrate 50 mg, 1 p.o. b.i.d. 5. Plavix 75 mg, 1 p.o. q.d. 6. Lisinopril 5mg, 1 p.o. b.i.d. CHIEF COMPLAINTS review echo and lipids HISTORY OF PRESENT ILLNESS Mr. Hartley is a very delightful 60-year-old gentleman who presents today for a followup regarding coronary artery disease and hyperlipidemia. You may recall that he had an anterior wall myocardial infarction in February,, which was treated with emergent LAD stenting. He had mild to moderate disease in other vessels. He was initially diagnosed with diabetes and treated with glipizide. However, he aggressively lost weight and changed his diet and has been able to control this without medications. Over the past year he has felt wonderful. Today he says he continues to feel very good. He has not had any recurrence of chest pain. No neck, jaw, or arm pain. No episodes of syncope, presyncope, PND, orthopnea, or pedal edema. He exercises by walking five to seven days a week. He also climbs stairs and never needs to stop due to dyspnea or fatigue. He follows a relatively heart healthy diet but does admit to cheating at times. His blood pressure is under good control. In the office today it was 125/72. Recent lipids done on 03/11/06 show triglycerides of 127, total cholesterol 141, HDL 41, LDL 75, ratio3.4, and ALT 23. His LDL goal should be less than 70, although this is improved from previous. He also had a repeat echocardiogram performed. LV thrombus could not be excluded. His ejection fraction was estimated at 45%, which was an improvement from 35% post WI. There is a trace of mitral regurgitation, as well as tricuspid regurgitation, and trace to mild aortic regurgitation. PAST HISTORY Past Medical Illnesses: diabetes mellitus-poorly [...] Echo -April 2005, 45% by echo 03/11 FAMILY HISTORY: Father - mphesema; Mother - Age 75, of heart disease; Sibling(s) - alive and well; Brother 1 -Age 30, shot/unsure; CARDIAC RISK FACTORS Tobacco Abuse: used to smoke, but quit; Family History of Heart Disease: positive; Hyperlipidemia: positive; Hypertension: positive; Diabetes Mellitus: positive; Prior History of Heart Disease: positive; Obesity:negative; Sedentary Life Style:negative SOCIAL HISTORY Alcohol Use - drinks occasionally and beer; Smoking - used to smoke but quit and 1980; Diet - low cholesterol, low sodium (less than 2 grams) and low fat Diet; Lifestyle - ; Exercise - exercise is limited due to physical disability, walking, 4-5 days/week and does stairs; Seat Belt Use - always; Occupation - [employer]; Residence - lives with ; Place of - [place]; Hours Worked - 40 hours per week; REVIEW OF SYSTEMS GENERAL weight loss INTEGUMENTARY denies any change in hair or [...] disorders. PHYSICAL EXAMINATION VITAL SIGNS: Blood Pressure: 125/72 Sitting, Left arm, regular cuff Pulse- 72.00/min. Weight- 182.00 lbs. Height- .00 Temperature- .00 CONSTITUTIONAL cooperative, alert and oriented,well [...] UPDATED TODAY: IMPRESSIONS/PLAN 1. Coronary artery disease, currently stable. The patient is feeling well. He has had no symptoms similar to his WI. I would ask him to continue exercising and following a heart healthy diet. I will verify with Dr. Foreman whether we can stop the Plavix as it has been one year that he has been on this medication. I would recommend that he stay on metoprolol and lisinopril to keep his blood pressure nice and low given his mildly reduced LV function. 2. Hyperlipidemia, currently under fairly good control. Ideally his LDL should be less than 70. At this time the patient does not want to increase his Vytorin to 10/40. He would rather continue with diet and exercise and recheck in six months' time as justin nned. I think that is reasonable given the fact that his diabetes has been controlled with diet and exercise and remains so today. 3. Possible LV thrombus. This could not be excluded on the recent echocardiogram. It is unlikely as the images are identical to the 2005 images where there was no thrombusidentified. I would recommend a repeat echocardiogram with contrast dye to verify. We will have thatdone sometime in the next two to three weeks. 4. The patient will follow up with Dr. Foreman for a routine visit in one year. 5. I will call him with the above results when they become available. TODAYS ORDERS 1. Cholesterol Fasting 6 months 2. 2D, color flow, doppler 3 weeks with contrast to exclude thrombus 3. F/U with Yazan Foreman MD annual follow up Salas Franz. documented in this encounter Plan of Treatment Not on filedocumented as of this encounter Visit Diagnoses Not on filedocumented in this encounter Care Teams Contract Project Manager Relationship Specialty Start Date End Date Andrey Tamez MD PCP - General 03/26/09 Bailey Doran MD PCP - General 09/20/00 03/25/[address], [address] [place], [place] [phone] Andrey Tamez MD PCP - Assigned PCP 09/11/12 11/08/18 [address] [place], [place] [phone] Andrey Tamez MD Assigned PCP 09/11/12 09/07/20 [address] [place], [place] [address] documented as of this encounter
--- OUTSIDE RECORDS SUMMARY | 2022-07-09 12:42 | XMS_ITS | Encounter Summary ---
:1945 Author Organization [place] Address [address] [place] [address] Care Team Providers Name Role Phone Andrey Tamez MD Primary Care Provider Bailey Doran MD Primary Care Provider Andrey Tamez MD Unavailable Andrey Tamez MD Unavailable Encounter Details Date Type Department Care Team Description 11/02/2005 Office Visit-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 - Hyperlipidemia, 272.4 2. UT-S/P Anterior, 412 3. - Cardiomyopathy Ischemic, 414.8 4. - CAD, 414.00 5. PTCA-LAD FLORI stent 03/2005 for AMI, V45.82 6. - Hypertension, benign, 401.1 7. Diabetes Mellitus-NIDD/circ dis/uncont, 250.72 ALLERGIES NKA MEDICATIONS (including any changes made today) 1. Aspirin 81 mg, 1 p.o. q.d. 2. Nitroglycerin 0.4 mg, Take as Directed 3. Vytorin 10mg /20 Mg, 1 p.o. q.d. 4. Metoprolol Tartrate 50 mg, 1 p.o. b.i.d. 5. Plavix 75 mg, 1 p.o. q.d. 6. Lisinopril 5mg, 1 p.o. b.i.d. CHIEF COMPLAINTS f/u CAD, post UT HISTORY OF PRESENT ILLNESS Rodolfo is a very delightful 60-year-old gentleman who presents today for a six month follow up regarding coronary artery disease. You may recall that he had an anterior wall myocardial infarction in , which was treated with emergent LAD stenting. He at one point was diagnosed with diabetes which was treated with glipizide and the patient aggressively lost weight and changed his diet and was able to control the diabetes without any medications. His last lipids were mildly elevated with an LDL of 78, although the rest of the numbers were at goal. We did not change his medication but asked him to work on his diet and exercise. The patient admits that he has not been as diligent since the holidays with his diet and exercise program. He continues to walk four to five days a week but has gained about 7 pounds. He plans to try to slowly lose the weight by increasing exercise and being more diligent about his diet. His blood pressure is a little higher today at 130/80, although he states that at home it generally runs in the 1-teens over 70s. He continues on his lisinopril, metoprolol, and Plavix. He is not experiencing any myalgias from the Vytorin. He currently denies any chest pain similar to his UT. He does have occasional episodes of sharp chest pain which occurred before he had his heart attack. They seem to occur while he is exerting himselfand go away as he continues to walk. He describes it as a sharp right or left-sided chest pain whichis not associated with other symptoms such as nausea, diaphoresis, or shortness of breath. He deniesany PND, orthopnea, or any pedal edema. PAST HISTORY Past Medical Illnesses: diabetes mellitus-poorly [...] Fraction: EF 40-50% by Echo -April 2005 FAMILY HISTORY: Father - mphesema; Mother - Age 75, of heart disease; Sibling(s) - alive and well; Brother 1 -Age 30, shot/unsure; SOCIAL HISTORY Alcohol Use - drinks occasionally and beer; Smoking - used to smoke but quit and 1980; Diet - low cholesterol, low sodium (less than 2 grams) and low fat Diet; Lifestyle - ; Exercise - exercise is limited due to physical disability, walking, 4-5 days/week and does stairs; Seat Belt Use - always; Occupation - [employer]; Residence - lives with ; Place of - [place]; Hours Worked - 40 hours per week; PHYSICAL EXAMINATION VITAL SIGNS: Blood Pressure: 130/80 Sitting, Left arm, large cuff 132/82 Retaken by MATERIALS HANDLER/PA Pulse- 70.00/min. Weight- 184.00 lbs. Height- 70.00 Temperature- .00 CONSTITUTIONAL cooperative, [...] appropriate, oriented to time, person and place. <FONT COLOR=#[id number]><FONT POINT=10> MEDICATIONS UPDATED TODAY: IMPRESSIONS/PLAN <FONT COLOR=#[id number]><FONT POINT=10> Coronary artery disease, status post myocardial infarction. The patient is currently doing well without symptoms of angina. I have encouraged him to try to get his cardiac risk factors under better control by losing the weight and following a more diligent diet. This is absolutely necessary given his diabetes in the past. The patient will do this for the next few months and then we will recheck lipids this summer when he has an echocardiogram scheduled. Should he experience problems or concerns sooner than that time frame, I have asked him to contact us. Otherwise, we will plan on following up withhim after those tests are complete. His next appointment with Dr. Foreman will be scheduled for 2005. Thank you very much for allowing me to participate in his care. <FONT COLOR=#[id number]><FONT POINT=10>TODAYS ORDERS 1. Cholesterol Fasting 5 months Herminia Franz documented in this encounter Plan of Treatment Not on filedocumented as of this encounter Visit Diagnoses Not on filedocumented in this encounter Care Teams Room Service Food Service Attendant Relationship Specialty Start Date End Date Andrey Tamez MD PCP - General 03/26/09 Bailey Doran MD PCP - General 09/20/00 03/25/[address], [address] [place] [address] Andrey Tamez MD PCP - Assigned PCP 09/11/12 11/08/18 [address] [place] [address] Andrey Tamez MD Assigned PCP 09/11/12 09/07/20 [address] [place] [address] documented as of this encounter
--- OUTSIDE RECORDS SUMMARY | 2022-07-09 12:42 | XMS_ITS | Encounter Summary ---
:1945 Author Organization [facility] Address [address] [place] [address] Care Team Providers Name Role Phone Andrey Tamez MD Primary Care Provider Bailey Doran MD Primary Care Provider Encounter Details Date Type Department Care Team Description 03/17/2005 Historic Results [facility] Ever[place] Eva Mccoy MD [address] [place] [address] [id number] [phone] Social History Tobacco Use Types Packs/Day Years Used Date Smoking Tobacco: Former Cigarettes 0.5 16 Quit : 09/06/1978 Alcohol Use Standard Drinks/Week Comments Yes 10 (1 standard drink = 0.6 oz pure alcoh ol) 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 GLUCOSE BY METER Routine 03/17/2005 5:05 PM Resul ts for this CDT procedure are i n the results section. GLUCOSE BY METER Routine 03/17/2005 11:42 Results for this AM CDT procedure are i n the results section. TROPONIN I Timed 03/17/2005 11:35 Results for this AM CDT procedure are i n the results section. TROPONIN I STAT 03/17/2005 7:45 AM Results f or this CDT procedure are i n the results section. PLATELET COUNT Timed 03/17/2005 7:00 AM Results for this CDT procedure are i n the results section. PARTIAL THROMBOPLASTIN Timed 03/17/2005 7:00 AM Results for this TIME CDT procedure are i n the results section. TROPONIN I STAT 03/17/2005 2:00 AM Results f or this CDT procedure are i n the results section. HEMOGRAM DIFFERENTIAL Routine 03/17/2005 2:00 AM Results for this AND PLATELET CDT procedure are i n the results section. INR STAT 03/17/2005 2:00 AM Results f or this CDT procedure are i n the results section. PLATELET COUNT Routine 03/17/2005 2:00 AM Results for this CDT procedure are i n the results section. PARTIAL THROMBOPLASTIN STAT 03/17/2005 2:00 AM Results for this TIME CDT procedure are i n the results section. MYOGLOBIN STAT 03/17/2005 2:00 AM Results f or this CDT procedure are i n the results section. COMPREHENSIVE METABOLIC STAT 03/17/2005 2:00 AM Results for this PANEL CDT procedure are i n the results section. documented in this encounter Results (ABNORMAL) Glucose by meter (03/17/2005 8:47 PM CDT) P athologist Signature Glucose 155 (H) 60 - 110 MISYS mg/dL Specimen Anatomical Collection Method Collection Time Receive d Time (Source) Location / / Volume Laterality 03/17/2005 8:47 PM 5 9:44 CDT AM CDT Jadiel Rivera MD [facility] POCT Performing Organization Address City/State/ZIP Code Phon e Number MISYS (ABNORMAL) Glucose by meter (03/17/2005 5:05 PM CDT) P athologist Signature Glucose 160 (H) 60 - 110 MISYS mg/dL Specimen Anatomical Collection Method Collection Time Receive d Time (Source) Location / / Volume Laterality 03/17/2005 5:05 PM 5 9:43 CDT AM CDT Jadiel FUNES - [place] POCT Performing Organization Address [facility] Code Phon e Number MISYS (ABNORMAL) Glucose by meter (03/17/2005 11:42 AM CDT) P athologist Signature Glucose 164 (H) 60 - 110 MISYS mg/dL Specimen Anatomical Collection Method Collection Time Receive d Time (Source) Location / / Volume Laterality 03/17/2005 11:42 03/18/2005 9:40 AM CDT AM CDT Jadiel Rivera MD LAB - [place] POCT Performing Organization Address [facility] Phon e Number MISYS (ABNORMAL) Troponin I (03/17/2005 11:35 AM CDT) P athologist Signature Troponin I 179.89 (HH) 0.00 - MISYS 0.40 ug/L Specimen Anatomical Collection Method Collection Time Receive d Time (Source) Location / / Volume Laterality 03/17/2005 11:35 03/17/2005 AM CDT 11:30 AM CDT Jadiel Rivera MD LAB - BLOOD ORDERABLES Performing Organization Address [facility] Phon e Number MISYS (ABNORMAL) Troponin I (03/17/2005 7:45 AM CDT) P athologist Signature Troponin I 164.44 (HH) 0.00 - MISYS 0.40 ug/L Comment: Critical Value called to and read back rob SANCHEZ Specimen Anatomical Collection Method Collection Time Receive d Time (Source) Location / / Volume Laterality 03/17/2005 7:45 AM 5 7:40 CDT AM CDT Jadiel Rivera MD LAB - BLOOD ORDERABLES Performing Organization Address [facility] Phon e Number MISYS Platelet count (03/17/2005 7:00 AM CDT) P athologist Signature Platelet Count 194 150 - 450 MISYS 10e9/L Specimen Anatomical Collection Method Collection Time Receive d Time (Source) Location / / Volume Laterality 03/17/2005 7:00 AM 5 7:00 CDT AM CDT Jadiel Rivera MD LAB - BLOOD ORDERABLES Performing Organization Address [facility] Phon e Number MISYS (ABNORMAL) Partial thromboplastin time (03/17/2005 7:00 AM CDT) P athologist Signature PTT 51 (H) 22 - 37 sec MISYS Specimen Anatomical Collection Method Collection Time Receive d Time (Source) Location / / Volume Laterality 03/17/2005 7:00 AM 5 7:00 CDT AM CDT Jadiel Rivera MD LAB - BLOOD ORDERABLES Performing Organization Address [facility] Phon e Number MISYS INR (03/17/2005 2:00 AM CDT) P athologist Signature INR 0.97 0.86 - 1.14 MISYS Comment: Specimen slightly hemolyzed Specimen Anatomical Collection Method Collection Time Receive d Time (Source) Location / / Volume Laterality 03/17/2005 2:00 AM 5 2:06 CDT AM CDT Amy Ulrich MD LAB - BLOOD ORDERABLES Performing Organization Address [facility] Phon e Number MISYS Partial thromboplastin time (03/17/2005 2:00 AM CDT) P athologist Signature PTT 28 22 - 37 sec MISYS Comment: Specimen slightly hemolyzed Specimen Anatomical Collection Method Collection Time Receive d Time (Source) Location / / Volume Laterality 03/17/2005 2:00 AM 5 2:06 CDT AM CDT Amy Ulrich MD LAB - BLOOD ORDERABLES Performing Organization Address [facility] Phon e Number MISYS (ABNORMAL) Comprehensive metabolic panel (03/17/2005 2:00 AM CDT) P athologist Signature Sodium 139 133 - 144 MISYS mmol/L Potassium 5.5 (H) 3.4 - 5.3 MISYS mmol/L Comment: Specimen slightly hemolyzed Chloride 103 94 - 109 mmol/L MISYS Carbon Dioxide 24 20 - 32 mmol/L MISYS Glucose 168 (H) 60 - 110 mg/dL MISYS Urea Nitrogen 18 7 - 30 mg/dL MISYS Creatinine 0.90 0.80 - 1.50 mg/dL MISYS GFR Estimate >80 >60 mL/min/1.7m2 MISYS GFR Estimate If Black >80 >60 mL/min/1.7m2 M ISYS Calcium 8.8 8.5 - 10.4 mg/dL MISYS AST 38 0 - 55 U/L MISYS Protein Total 8.0 6.0 - 8.2 g/dL MISYS Anion Gap 11 6 - 17 mmol/L MISYS Albumin 4.7 (H) 3.2 - 4.5 g/dL MISYS ALT 15 0 - 70 U/L MISYS Alkaline Phosphatase 84 40 - 150 U/L MISYS Bilirubin Total 1.2 0.2 - 1.3 mg/dL MISYS Specimen Anatomical Collection Method Collection Time Receive d Time (Source) Location / / Volume Laterality 03/17/2005 2:00 AM 5 2:06 CDT AM CDT Amy Ulrich MD LAB - BLOOD ORDERABLES Performing Organization Address [facility] Phon e Number MISYS Troponin I (03/17/2005 2:00 AM CDT) athologist Signature Troponin I 0.36 0.00 - 0.40 MISYS ug/L Specimen Anatomical Collection Method Collection Time Receive d Time (Source) Location / / Volume Laterality 03/17/2005 2:00 AM 5 2:06 CDT AM CDT Amy Ulrich MD LAB - BLOOD ORDERABLES Performing Organization Address [facility] Phon e Number MISYS Myoglobin (03/17/2005 2:00 AM CDT) P athologist Signature Myoglobin 43 <120 ug/L MISYS Specimen Anatomical Collection Method Collection Time Receive d Time (Source) Location / / Volume Laterality 03/17/2005 2:00 AM 5 2:06 CDT AM CDT Amy Ulrich MD LAB - BLOOD ORDERABLES Performing Organization Address City/[facility] Phon e Number MISYS (ABNORMAL) Hemogram differential and platelet (03/17/2005 2:00 AM CDT) Patholo gist Method Time Signature MCV 95 78 - 100 MISYS fl MCH 32.4 26.5 - MISYS 33.0 pg MCHC 34.0 32.0 - MISYS 36.0 g/dL RDW 10.8 10.0 - MISYS 15.0 % WBC 13.4 (H) 4.0 - MISYS 11.0 10e9/L RBC Count 5.01 4.4 - 5.9 MISYS 10e12/L Hemoglobin 16.2 13.3 - MISYS 17.7 g/dL Hematocrit 47.8 40.0 - MISYS 53.0 % % Neutrophils 76 (H) 40 - 75 % MISYS % Lymphocytes 18 (L) 20 - 48 % MISYS % Monocytes 5 0 - 12 % MISYS % Eosinophils 0 0 - 6 % MISYS % Basophils 1 0 - 2 % MISYS Absolute 10.2 (H) 1.6 - 8.3 MISYS Neutrophil 10e9/L Absolute 2.4 0.8 - 5.3 MISYS Lymphocytes 10e9/L Absolute 0.6 0.0 - 1.3 MISYS Monocytes 10e9/L Absolute 0.0 0.0 - 0.7 MISYS Eosinophils 10e9/L Absolute 0.1 0.0 - 0.2 MISYS Basophils 10e9/L Diff Method Automated MISYS Method Specimen Anatomical Collection Method Collection Time Receive d Time (Source) Location / / Volume Laterality 03/17/2005 2:00 AM 5 2:38 CDT AM CDT Amy Ulrich MD LAB - BLOOD ORDERABLES Performing Organization Address City/State/[facility] Code Phon e Number MISYS Platelet count (03/17/2005 2:00 AM CDT) P athologist Signature Platelet Count 210 150 - 450 MISYS 10e9/L Specimen Anatomical Collection Method Collection Time Receive d Time (Source) Location / / Volume Laterality 03/17/2005 2:00 AM 5 2:56 CDT AM CDT Amy Ulrich MD LAB - BLOOD ORDERABLES Performing Organization Address City/State/ZIP Code Phon e Number MISYS documented in this encounter Visit Diagnoses Not on filedocumented in this encounter Care Teams Director [facility] Relationship Specialty Start Date End Date Andrey Tamez MD PCP - General 03/26/09 Bailey Doran MD PCP - General 09/20/00 03/25/09 [address] [facility] [address] [place] [address] documented as of this encounter
--- OUTSIDE RECORDS SUMMARY | 2022-07-09 12:42 | XMS_ITS | Encounter Summary ---
:1945 Author Organization [facility] Address [address] [place] [address] Care Team Providers Name Role Phone Bailey Doran MD Primary Care Provider Encounter Details Date Type Department Care Team Description 04/12/2008 Admission H&P [facility] Scott Aggarwal (Rag Washer) Hospitalists MD [place] [address] [place] [id number] [phone] Social History Tobacco Use Types Packs/Day Years Used Date Smoking Tobacco: Former Cigarettes 0.5 16 Quit : 09/06/1978 Alcohol Use Standard Drinks/Week Comments Yes 10 (1 standard drink = 0.6 oz pure alcoh ol) 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 CHIEF COMPLAINT: Slurred speech. HISTORY: Rodolfo Hartley is 62-year-old male with a history of coronary artery disease including acute myocardial infarction in 03/2005, status post proximal LAD stent with family history of heart disease including mother who had MT at age 50, prior history of diabetes, hypertension, hypercholesterolemia, peripheral neuropathy, who presents to [facility] after about a 30 minuteepisode of slurred speech and left facial droop. The patient works at [employer]. The patient walked over this afternoon over toanother location and started feeling dizzy. When he walked back, a colleague had noticed that the patient was slurring his words and had a left facial droop. The patient himself did not think so. A couple other colleagues eventually came and confirmed that the patient indeed had a left facial droop and slurring of speech and contacted EMS. By the time EMS arrived, the patient's symptoms were improving. The patient was brought to [facility] Emergency Department for further assessment. In the emergency department the patient was hypertensive with a blood pressure 170/94. EKG shows noacute ischemic changes but evidence of a possible anterior infarct with Q-waves in leads III, V2 andV3. The patient had an MRI of the brain which showed an acute nonhemorrhagic right posterior frontalinfarct with no evidence of intracranial hemorrhage or mass effect. He also underwent MRI/MRA of theneck which was unremarkable with carotid and vertebral systems were visualized and are widely patentand there was no evidence of stenosis or dissection. An MRA of the head was suboptimal but there wasno evidence of any aneurysms or large vessel occlusions. The patient's troponin is negative. His electrolytes are unremarkable. Hepatic panel is normal. Glucose is slightly elevated at 123 and a GFR at78. INR and PTT are within normal limits. CBC is normal with a normal differential count. The patient is being admitted for acute CVI. PAST MEDICAL/SURGICAL HISTORY: 1. History of diabetes that has been diet-controlled. 2. Hypertension. 3. ASCVD with history of acute myocardial infarction in 10/2006, status post LAD PTCA and stent. The patient has moderate coronary disease in his RCA and circumflex distribution from an angiogram in 2004. 4. Cholecystectomy 5. peripheral neuropathy. FAMILY HISTORY: Mother had a myocardial infarction in his 50s as well as heart failure. SOCIAL HISTORY: The patient quit tobacco, he is . Occasional alcohol, works for [employer]. ALLERGIES: NO KNOWN DRUG ALLERGIES. MEDICATIONS: 1. Lisinopril 5 mg 2. Metoprolol 50 mg b.i.d. 3. Vytorin 10/ 1 tablet a day. 4. Aspirin enteric-coated 162 mg daily. REVIEW OF SYSTEMS: Ten point review of systems reviewed CONSTITUTIONAL. The patient denies any fevers, chills. He does have some intended weight loss. HEENT: No visual disturbance, no headache. CARDIAC the patient denies any anginal pain, orthopnea, PND or claudication. PULMONARY: Denies any cough, sputum production, wheezing. GI: Negative. : Negative. MUSCULOSKELETAL: Negative. NEUROLOGIC: Has some peripheral neuropathy of his feet and sensitivity. neurology as dictated in history of present illness. ENDOCRINE: Denies thyroid problems, had a history of diabetes in the past. PHYSICAL EXAMINATION: VITAL SIGNS: Blood pressure 170/94, pulse 71, respirations 20, temperature 97.8, sats 97% room air.GENERAL: The patient is 62 year-old male who is pleasant, oriented x3. Speech is normal. HEENT: Pupils equal, sclera is anicteric. Mucous membranes are moist. Extraocular movements intact. Tongue is midline. Soft palate excurses symmetrically. NECK: Supple. No carotid bruits. No lymphadenopathy. LUNGS: Clear to auscultation. CARDIOVASCULAR: S1, S2, regular rate and rhythm. ABDOMEN: Soft, nontender, nondistended, obese, no focal tenderness. No guard or rebound. EXTREMITIES: No clubbing, cyanosis or edema. Peripheral pulses somewhat diminished on the right dorsalis pedis compared to the left. Strength and sensation is intact with the exception of some neuropathy of his feet bilaterally. There is no cerebellar lesions noted. NEUROLOGIC: Cranial nerves are grossly intact with the exception of possible slight subtle facial droop on the left. LABORATORY: As dictated in history of present illness. ASSESSMENT: 62-year-old admitted with symptoms of acute CVI with right posterior frontal infarct. PLAN: 1. Acute cerebrovascular infarction. The patient will be placed on CVI pathway. The patient has been on aspirin and would consider this an aspirin failure and would start the patient on Plavix. Will have PT, OT, speech for assessment and treatment. Will obtain a neurology consultation as well. Will check an echocardiogram and place on telemetry bed. 2. History of ASCVD. Will continue his cardiac medications with blood pressure parameters dictated by the stroke protocol. 3. Hypercholesterolemia. Thepatient has been on Vytorin same dosage for the past three years. He admits that his LDL is less than 100 but we may need to revise his lipids goals including LDL of less than 70. He also tells me thathis HDL might be a little bit low as well. 4. History of diabetes. Will check an A1c and perform Accu-Cheks q.i.d. Electronically signed on 04/25/2008 06:27 by SCOTT AGGARWAL MD MT: ERICA Name: RODOLFO HARTLEY Account: [id number] : 1945 Admitted: [id number] Document: [id number] cc: Yazan Foreman MD, [facility] documented in this encounter Plan of Treatment Not on filedocumented as of this encounter Visit Diagnoses Not on filedocumented in this encounter Care Teams Tentmaker Relationship Specialty Start Date End Date Bailey Doran MD PCP - General 09/20/00 03/25/[address], [place] [address] [place] [address] documented as of this encounter
--- OUTSIDE RECORDS SUMMARY | 2022-07-09 12:42 | XMS_ITS | Encounter Summary ---
:1945 Author Organization [facility] Address [address] [place] [address] Care Team Providers Name Role Phone Andrey Tamez MD Primary Care Provider Bailey Doran MD Primary Care Provider Encounter Details Date Type Department Care Team Description 03/19/2005 Historic Results [facility] Ever[place] Rivear [place] Eva Mccoy MD [address] [place] [phone] Social History Tobacco Use Types Packs/Day Years Used Date Smoking Tobacco: Former Cigarettes 0.5 16 Quit : 09/06/1978 Alcohol Use Standard Drinks/Week Comments Yes 10 (1 standard drink = 0.6 oz pure alcoh ol) 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 documented in this encounter Results Platelet count (03/19/2005 5:45 AM CDT) P athologist Signature Platelet Count 158 150 - 450 MISYS 10e9/L Specimen (Source) Anatomical Collection Method Collection Time Re ceived Time Location / / Volume Laterality 03/19/2005 5:45 AM 5 CDT Jadiel Rivera MD LAB - BLOOD ORDERABLES Performing Organization Address City/State/ZIP Code Phon e Number MISYS documented in this encounter Visit Diagnoses Not on filedocumented in this encounter Care Teams Salesperson [employer] Relationship Specialty Start Date End Date Andrey Tamez MD PCP - General 03/26/09 Bailey Doran MD PCP - General 09/20/00 03/25/[address], [address] [address] [place] [address] documented as of this encounter
--- OUTSIDE RECORDS SUMMARY | 2022-07-09 12:42 | XMS_ITS | Encounter Summary ---
:1945 Author Organization [facility] Address [address] [place] [address]. [place] [address] Care Team Providers Name Role Phone Andrey Tamez MD Primary Care Provider Bailey Doran MD Primary Care Provider Encounter Details Date Type Department Care Team Description 04/10/2005 Historic Results [facility] MD Hospitalists [address] 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 GLUCOSE BY METER Routine 04/10/2005 1:14 PM Resul ts for this CDT procedure are i n the results section. documented in this encounter Results Glucose by meter (04/10/2005 2:08 PM CDT) athologist Signature Glucose 85 60 - 110 MISYS mg/dL Specimen Anatomical Collection Method Collection Time Receive d Time (Source) Location / / Volume Laterality 04/10/2005 2:08 PM 5 CDT 11:49 AM CDT Yazan STEPHENS POCT Performing Organization Address City/State/ZIP Code Phon e Number MISYS (ABNORMAL) Glucose by meter (04/10/2005 1:14 PM CDT) P athologist Signature Glucose 133 (H) 60 - 110 MISYS mg/dL Specimen Anatomical Collection Method Collection Time Receive d Time (Source) Location / / Volume Laterality 04/10/2005 1:14 PM 5 CDT 11:49 AM CDT Yazan STEPHENS POCT Performing Organization Address City/State/ZIP Code Phon e Number MISYS documented in this encounter Visit Diagnoses Not on filedocumented in this encounter Care Teams Team Sports Sales Associate Relationship Specialty Start Date End Date Andrey Tamez MD PCP - General 03/26/09 Bailey Doran MD PCP - General 09/20/00 03/25/09 [address] , [facility] [address] [place] [address] documented as of this encounter
--- OUTSIDE RECORDS SUMMARY | 2022-07-09 12:42 | XMS_ITS | Encounter Summary ---
:1945 Author Organization [place] Address [address] [place] [address] Care Team Providers Name Role Phone Bailey Doran MD Primary Care Provider Encounter Details Date Type Department Care Team Description 04/12/2008 Results Only [facility] Se zaid Lipscomb MD [facility] EMERGENCY CODIY [place] Results [address] [place], [place] [address] (Wo rk) Social History Tobacco Use Types Packs/Day Years Used Date Smoking Tobacco: Former Cigarettes 0.5 16 Quit : 09/06/1978 Alcohol Use Standard Drinks/Week Comments Yes 10 (1 standard drink = 0.6 oz pure alcoh ol) 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 HC MRA NECK WO&W Routine 04/12/2008 5:41 PM Resul ts for this CONTRAST CDT procedure are i n the results section. HC MRI BRAIN W/O Routine 04/12/2008 5:34 PM Resul ts for this CONTRAST CDT procedure are i n the results section. HC MRA HEAD W/O Routine 04/12/2008 5:33 PM Result s for this CONTRAST CDT procedure are i n the results section. documented in this encounter Results CHEST X-RAY 2 VW (04/12/2008 6:07 PM CDT) Anatomical Region Laterality Modality Other Specimen (Source) Anatomical Collection Method Collection Time Re ceived Time Location / / Volume Laterality 04/12/2008 6:07 PM CDT Impressions 04/13/2008 7:25 AM CDT CHEST TWO VIEW* ?Apr 12, 2008 6:07:0 0 PM HISTORY: ??Chest Pain COMPARISON: Film dated 03/17/2005 FINDINGS: The heart is negative. ??The l ungs are clear. The pulmonary vasculature is normal. ??The bones and s oft tissues are unremarkable. ?? IMPRESSION: Negative, no active disease. Baljinder Lipscomb MD GENERAL IMAGING MRA, NECK; W/O CONTRAST MATL(S), FOLLOWED BY CONTRAST MATL(S) & FURTHER SEQUENCES (04/12/2008 5:41 PM CDT) Anatomical Region Laterality Modality Other Specimen (Source) Anatomical Collection Method Collection Time Re ceived Time Location / / Volume Laterality 04/12/2008 5:41 PM CDT Impressions 04/12/2008 5:45 PM CDT MRA NECK WW/O CONTRAST* Apr 12, 2008 5:41 :00 PM HISTORY: Stroke. TECHNIQUE: MR angiography was performed through the neck without and with contrast. Stenosis of carotid arter ies was based on comparing proximal ICA with distal ICA. 30 mL of M agnevist given for this exam and for brain MR on same day. FINDINGS: The carotid and vertebral syst ems were visualized. The carotid bifurcations are widely patent. There is no evidence for a stenosis or dissection. ?? IMPRESSION: Negative MR angiography of t he neck without and with contrast. Baljinder Lipscomb MD SPECIAL IMAGING STUDIES MRI BRAIN (04/12/2008 5:34 PM CDT) Anatomical Region Laterality Modality Other Specimen (Source) Anatomical Collection Method Collection Time Re ceived Time Location / / Volume Laterality 04/12/2008 5:34 PM CDT Impressions 04/13/2008 8:43 AM CDT MRI BRAIN WITHOUT AND WITH CONTRAST ??Au 2007 5:34:00 PM HISTORY: Facial droop. Stroke. Slurring of words. TECHNIQUE: Routine pulse sequences witho ut and with contrast. 30 mL of Magnevist given. COMPARISON: None. FINDINGS: Diffusion-weighted images show an acute infarct in the right posterior frontal lobe motor premotor co rtex measuring approximately 3 x 1.5 cm in size. There is no evidence f or any associated mass effect or hemorrhage. The brain parenchyma is o therwise normal. The ventricles and subarachnoid spaces are n ormal. Vascular structures are patent at the skull base. Postcontrast i mages show no evidence for any abnormal enhancement. No focal mass lesi ons are present. 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 No evidence for intracranial hemorrhage or mass effect. Baljinder Lipscomb MD SPECIAL IMAGING STUDIES MR ANGIO, HEAD (04/12/2008 5:33 PM CDT) Anatomical Region Laterality Modality Other Specimen (Source) Anatomical Collection Method Collection Time Re ceived Time Location / / Volume Laterality 04/12/2008 5:33 PM CDT Impressions 04/13/2008 8:42 AM CDT MRA HEAD WITHOUT CONTRAST ??April 12 5:33:00 PM HISTORY: Acute stroke. Facial droop. TECHNIQUE: 3D [id number] MR angiogra phy was performed through the chitina of Garcia. FINDINGS: The distal vertebral arteries, basilar artery and the proximal anterior, middle and posterior cerebral arteries are patent. There is primary origin of both posterio r cerebral arteries off of the internal carotid arteries; hence the bas ilar artery is small. This is an anatomic variant. There are slightly less right-sided middle cerebral artery branches on the left jacques e suggesting a distal right middle cerebral artery branch cutoff. IMPRESSION: Distal right middle cerebral artery branch cutoff in the area of perfusion abnormality on MR. No evidence for any saccular aneurysms or any large vessel occlusions . Baljinder Lipscomb MD SPECIAL IMAGING STUDIES documented in this encounter Visit Diagnoses Not on filedocumented in this encounter Care Teams Grinding And Polishing Laborer Relationship Specialty Start Date End Date Bailey Doran MD PCP - General 09/20/00 03/25/[address], [address] [place] [address] documented as of this encounter
--- OUTSIDE RECORDS SUMMARY | 2022-07-09 12:43 | XMS_ITS | Encounter Summary ---
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 CL AFF Routine 05/18/2000 ABSTRACTING RESULTS Results for this HEMOGRAM/PLATE/DIFF procedur e are in the results section . ZZCL AFF CLINICAL Routine 05/18/2000 ABSTRACTING RESULTS Res ults for this CHEMISTRY TEST procedure are in the results section . CL AFF URINALYSIS, Routine 05/18/2000 ABSTRACTING RESULTS Re sults for this ROUTINE procedure are i n the results section . documented in this encounter Results A.M[facility]S ELECTROLYTE PANEL (05/18/2000) P athologist Signature Sodium 141 134 - 145 [facility] Potassium 5.2 3.5 - 5.5 [facility] mval/L Chloride 102 [facility] Carbon Dioxide 28 [facility] Specimen (Source) Anatomical Location Collection Method / Collectio n Time Received Time / Laterality Volume 05/18/2000 Narrative [facility] - 05/18/2000 ANION GAP = 12 ??(ref. range= 6-17 MMOL/L) *no component in computer Abstracted from paper copy. Provider Abstract LABORATORY Performing Organization Address City/State/ZIP Code Phon e Number [facility] (ABNORMAL) CLINICAL CHEMISTRY TEST (05/18/2000) [facility] gist Method Time Signature Alkaline 151 (A) 40 - 150 [facility] Phosphatase U/L ALT 873 (A) 0 - 70 U/L [facility] Amylase 2665 (A) 30 - 110 [facility] U/L AST 781 (A) 0 - 55 U/L [facility] Bilirubin Total 4.4 (A) 0.0 - 1.6 [facility] MG/DL Calcium 9.1 8.5 - 10.4 [facility] MG/DL Creatinine 9.1 [facility] Glucose 220 (A) 60 - 115 [facility] MG/DL Albumin 3.9 3.3 - 4.6 [facility] G/DL Urea Nitrogen 15 7 - 30 [facility] MG/DL Specimen (Source) Anatomical Location Collection Method / Collectio n Time Received Time / Laterality Volume 05/18/2000 Narrative [facility] - 05/18/2000 Abstracted from paper copy. Provider Abstract LABORATORY Performing Organization Address City/[facility]/ZIP Code Phon e Number [facility] URINALYSIS (05/18/2000) [facility] Color Urine yellow [facility] Appearance Urine clear [facility] Glucose Urine 500 [facility] Bilirubin Urine neg [facility] Ketones Urine 15 [facility] Specific [place] 1.015 [facility] Blood Urine neg [facility] pH Arterial 5.0 [facility] Protein Urine neg [facility] Urobilinogen 0.2 [facility] Urine Nitrite Urine neg [facility] Leukocytes neg [facility] Specimen (Source) Anatomical Location Collection Method / Collectio n Time Received Time / Laterality Volume 05/18/2000 Narrative [facility] - 05/23/2000 Abstracted from paper copy. Provider Abstract LABORATORY Performing Organization Address City/State/ZIP Code Phon e Number [facility] (ABNORMAL) AUTO HEMOGRAM/PLATE/DIFF (05/18/2000) [facility] gist Method Time Signature WBC 14.5 (A) 4.3 - 11 [facility] Thousand/CU .MM RBC Count 5.06 4.6 - 11 [facility] Thousand/CU .MM Hemoglobin 17.0 14 - 18 [facility] G/DL Hematocrit 48.4 40 - 54 [facility] Percent MCV 95.7 (A) 80 - 94 FL [facility] MCH 33.6 (A) 26 - 33 PG [facility] MCHC 35.1 31 - 36 [facility] PERCENT Platelet Count 208. 150 - 375 [facility] Thousand/CU .MM % Granulocytes 92 [facility] % Lymphocytes 3 [facility] MONO 4 [facility] Specimen (Source) Anatomical Location Collection Method / Collectio n Time Received Time / Laterality Volume 05/18/2000 Narrative [facility] - 05/23/2000 Abstracted from paper copy. Provider Abstract LABORATORY Performing Organization Address City/State/ZIP Code Phon e Number [facility] documented in this encounter Visit Diagnoses Diagnosis ABSTRACTING RESULTS - Primary documented in this encounter
--- OUTSIDE RECORDS SUMMARY | 2022-07-09 12:43 | XMS_ITS | Encounter Summary ---
:1945 Author Organization [place] Address [address] [place] [address] Care Team Providers Name Role Phone Bailey Doran MD Primary Care Provider Reason for Visit Reason Comments Results Encounter Details Date Type Department Care Team Description 11/01/2000 Telephone [facility] ysicians Bailey Doran MD Results [address] [place] [address] [address] [place] [address] [address] [place] [address] [place] [address] (Wo rk) Social History Tobacco Use Types Packs/Day Years Used Date Smoking Tobacco: Former Cigarettes 0.5 16 Quit : 09/06/1978 Alcohol Use Standard Drinks/Week Comments Yes 10 (1 standard drink = 0.6 oz pure alcoh ol) 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 and told him that he needs to come in for an ov to discuss options. ------- - Juliana Larson Started and completed on WedNov 01, 2000 9:17 AM Letter sent. Needs to come in to discuss options. Awaiting ECHO. ------- - Dr. Bailey Doran Started and completed on WedNov 01, 2000 9:07 AM CALL RECEIVED. Contact: Pt. called to get the results of his cholesterol and glucose testing. He was high on both of those r esults. Can you please call him and explain what he should do reguarding the result numbers. His wor k number is [phone]. - Juliana Larson Started and completed on WedNov 01, 2000 8:59 AM documented in this encounter Plan of Treatment Not on filedocumented as of this encounter Visit Diagnoses Not on filedocumented in this encounter Care Teams Fax Machine Repairer Relationship Specialty Start Date End Date Bailey Doran MD PCP - General 09/20/00 03/25/09 [address] [facility] [address] [place] [address] documented as of this encounter
--- OUTSIDE RECORDS SUMMARY | 2022-07-09 12:43 | XMS_ITS | Encounter Summary ---
:1945 Author Organization [place] Address [facility] [place] [address] Care Team Providers Name Role Phone Andrey Tamez MD Primary Care Provider Bailey Doran MD Primary Care Provider Andrey Tamez MD Unavailable Andrey Tamez MD Unavailable Encounter Details Date Type Department Care Team Description [facility] Physicians MD GALVIN HX-CARDIOVAS DIS NEC; [address] [place], [place] [id number] [place] [address] DIABETES UNCOMPL ADULT-TYPE II [address] [place] [address] [place], [place] [phone] (Wo rk) [address] [phone] Social History Tobacco Use Types Packs/Day Years Used Date Smoking Tobacco: Former Cigarettes 0.5 16 Quit : 09/06/1978 Smokeless Tobacco: Never Alcohol Use Standard Drinks/Week Comments Yes 10 (1 standard drink = 0.6 oz pure alcoh ol) A drink every 1-2 weeks. 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 Progress Notes 11/12/2000 11:59 PM STRIKE PLATE ATTACHER Stress Echo for cholesterol, diabetes, family history of coronary artery disease within normal limits documented in this encounter Plan of Treatment Not on filedocumented as of this encounter Procedures Procedure Name Priority Date/Time Associated Diagnosis Comme nts ZZC CARDIAC STRESS Routine 11/12/2000 Mixed Hyperli pidemia TST,INTERP/REPT ONLY Family Hx-C ardiovas Dis Nec Diabetes Uncompl Adult-Type Ii documented in this encounter Results CARDIAC STRESS TST,INTERP/REPT ONLY (11/12/2000) Narrative This result has an attachment that is no t available. Inder Martinez MD SPECIAL IMAGING STUDIES documented in this encounter Visit Diagnoses Diagnosis Mixed hyperlipidemia Fam hx-cardiovas dis NEC Family history of other cardiovascular d iseases Type II or unspecified type diabetes vijaya litus without mention of complication, not stated as uncontrolled documented in this encounter Care Teams Alemite Operator Relationship Specialty Start Date End Date Andrey Tamez MD PCP - General 03/26/09 Bailey Doran MD PCP - General 09/20/00 03/25/[address] [place], [place] [address] Andrey Tamez MD PCP - Assigned PCP 09/11/12 11/08/18 [address] [place], [place] [id number] Andrey Tamez MD Assigned PCP 09/11/12 09/07/20 [address] [place] [address] documented as of this encounter
--- OUTSIDE RECORDS SUMMARY | 2022-07-09 12:43 | XMS_ITS | Encounter Summary ---
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 HEMOGRAM Routine 05/21/2000 ABSTRACTING RESULTS Results for this procedure are i n the results section . ZZCL AFF CLINICAL Routine 05/21/2000 ABSTRACTING RESULTS Res ults for this CHEMISTRY TEST procedure are in the results section . documented in this encounter Results [facility] ELECTROLYTE PANEL (05/21/2000) P athologist Signature Sodium 141 134 - 145 [facility] MMOL/L Potassium 3.5 3.5 - 5.5 [facility] MMOL/L Chloride 103 94 - 109 [facility] MMOL/L Carbon Dioxide 28 20 - 32 [facility] MMOL/L Specimen (Source) Anatomical Location Collection Method / Collectio n Time Received Time / Laterality Volume 05/21/2000 Narrative [facility] - 05/21/2000 ANION GAP = 9 (ref. range = 6-17 mmol/l) *no components in computer. Abstracted from paper copy. Provider Abstract LABORATORY Performing Organization Address City/[facility] Phon e Number [facility] (ABNORMAL) CLINICAL CHEMISTRY TEST (05/21/2000) P athologist Signature ALT 233 (A) 0 - 70 U/L [facility] AST 32 0 - 55 U/L [facility] Calcium 7.9 (A) 8.5 - 10.4 [facility] MG/DL Creatinine 0.8 0.8 - 1.7 [facility] MG/DL Glucose 179 (A) 60 - 115 [facility] MG/DL Urea Nitrogen 6 (A) 7 - 30 [facility] MG/DL Specimen (Source) Anatomical Location Collection Method / Collectio n Time Received Time / Laterality Volume 05/21/2000 Narrative [facility] - 05/21/2000 Abstracted from paper copy. Provider Abstract LABORATORY Performing Organization Address [facility] Phon e Number ADAM MARTINEZ (ABNORMAL) HEMOGRAM W/O PLATELET COUNT (05/21/2000) P athologist Signature WBC 13.9 (A) 4.3 - 11 [facility] Thousand/CU. MM RBC Count 4.36 (A) 4.6 - 11 [facility] Thousand/CU. MM Hemoglobin 14.3 14 - 18 G/DL [facility] Hematocrit 42.2 40 - 54 [facility] Percent MCV 96.9 (A) 80 - 94 FL [facility] MCH 32.8 26 - 33 PG [facility] MCHC 33.8 31 - 36 [facility] PERCENT RDW 10.9 10 - 45 % [facility] Specimen (Source) Anatomical Location Collection Method / Collectio n Time Received Time / Laterality Volume 05/21/2000 Narrative [facility] - 05/21/2000 Abstracted from paper copy. Provider Abstract LABORATORY Performing Organization Address City/[facility]/ZIP Code Phon e Number [facility] documented in this encounter Visit Diagnoses Diagnosis ABSTRACTING RESULTS - Primary documented in this encounter
--- OUTSIDE RECORDS SUMMARY | 2022-07-09 12:43 | XMS_ITS | Encounter Summary ---
:1945 Author Organization [place] Address [address] [place] [address] Care Team Providers Name Role Phone Bailey Doran MD Primary Care Provider Reason for Visit Reason Comments Blood Draw Encounter Details Date Type Department Care Team Description 03/16/2001 Office Visit [facility] Bailey Doran, DIABET ES UNCOMPL ADULT-TYPE II (Primary Dx); Physicians MIXED HYPERLIPIDEMIA [address] , [address] [facility] [address] [place] [address] [phone] Social History Tobacco Use Types Packs/Day Years Used Date Smoking Tobacco: Former Cigarettes 0.5 16 Quit : 09/06/1978 Alcohol Use Standard Drinks/Week Comments Yes 10 (1 standard drink = 0.6 oz pure alcoh ol) 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 Weight stable. BP running 120-140/70-90. Diabetes education went well. Would like to go off Lipitor and see how his diet and medications are doing corrie ne. OBJECTIVE: BP borderline. Regular rate and rhythm. S1 and S2 normal, no murmurs, clicks, gallop s orrubs. No edema or JVD. Chest is clear; no wheezes or rales. Urine: neg albumin ASSESSMENT: DIAB ETES UNCOMPL ADULT-TYPE II [250.00] MIXED HYPERLIPIDEMIA [272.2] PLAN: Return for fasting lipids i n 4 weeks. HEMOGLOBIN A1C [20756.001-90] Order #: [id number] Class: Katey skelton. METFORMIN HCL TABS 50 0 MG OR, 1 tab po bid with food, D: 64, R: 5 documented in this encounter Nursing Notes 03/16/2001 10:45 AM CDT >> SAIRA MOISE 03/16/2001 11:07 am pt states here for blood work, glucose chck, BP chck Questioned patient about current smoking habits. Pt. quit smoking some time ago. documented in this encounter Plan of Treatment Not on filedocumented as of this encounter Procedures Procedure Name Priority Date/Time Associated Comments Diagnosis HCL GLYCATED Routine 03/17/2001 1:31 AM Diabetes Uncompl Resul ts for this HEMOGLOBIN CDT Adult-Type Ii procedure are in the results section. ZZCL AFF Routine 03/16/2001 11:37 AM Diabetes Uncompl Resu lts for this MICROALBUMIN, CDT Adult-Type Ii procedure are in SEMIQUANTT the results section. HC VENOUS COLLECTION Routine 03/16/2001 11:30 AM Diabetes Unco mpl CDT Adult-Type Ii documented in this encounter Results HEMOGLOBIN A1C (03/17/2001 1:31 AM CDT) P athologist Signature Hemoglobin A1C 5.9 PERCENT [facility] Specimen (Source) Anatomical Location Collection Method / Collectio n Time Received Time / Laterality Volume 03/16/2001 Narrative [facility] - 03/17/2001 1:31 AM CDT ?REFERENCE RANGE: NON-DIABETIC ??<6.5% [employer] RECOMM ENDS THAT THE GOAL OF THERAPY SHOULD BE A HEM OGLOBIN A1C OF <7% AND THAT PHYSICIANS SHOULD RE EVALUATE THE TREATMENT REGIMEN IN PATIENTS WITH H EMOGLOBIN A1C VALUES CONSISTENTLY >8.0%. Bailey Doran MD LABORATORY Performing Organization Address City/State/ZIP Code Phon e Number [facility] MICROALBUMIN, SEMIQUANT (03/16/2001 11:37 AM CDT) athologist Signature Microalbumin normal [facility] Specimen (Source) Anatomical Collection Method Collection Time Re ceived Time Location / / Volume Laterality 03/16/2001 11:37 AM CDT Narrative [facility] - 03/16/2001 11:37 AM CDT ALB: 10 mg/l CRE: 50 mg/dl A:C: 30 mg/ g Bailey Doran MD LABORATORY Performing Organization Address City/[facility] Phon e Number [facility] documented in this encounter Visit Diagnoses Diagnosis Type II or unspecified type diabetes vijaya litus without mention of complication, not stated as uncontrolled - Primary Mixed hyperlipidemia documented in this encounter Care Teams Axminster Weaver Relationship Specialty Start Date End Date Bailey Doran MD PCP - General 09/20/00 03/25/09 [address] , [facility] [address] [place] [address] documented as of this encounter
--- OUTSIDE RECORDS SUMMARY | 2022-07-09 12:43 | XMS_ITS | Encounter Summary ---
:1945 Author Organization [facility] Address [address] [place] [address] Care Team Providers Name Role Phone Bailey Doran MD Primary Care Provider Encounter Details Date Type Department Care Team Description 04/08/2001 Orders Only [facility] Bailey Doran, MIXED HYPERLIPIDEMIA Physicians (Primary Dx) [address] , [address] [id number] Social History Tobacco Use Types Packs/Day Years Used Date Smoking Tobacco: Former Cigarettes 0.5 16 Quit : 09/06/1978 Alcohol Use Standard Drinks/Week Comments Yes 10 (1 standard drink = 0.6 oz pure alcoh ol) 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 HC VENOUS Routine 04/08/2001 9:19 AM Mixed Hyperlipidemia COLLECTION CDT documented in this encounter Results (ABNORMAL) A.M.A. LIPID PANEL (04/09/2001 12:30 AM CDT) [facility] Method Time Signature Comments DNR [facility] Triglycerides 169 (H) <150 MG/DL [facility] Cholesterol 246 (H) <200 MG/DL [facility] Cholesterol 73 PERCENTILE [facility] Percentile HDL Cholesterol 39 (L) >40 MG/DL [facility] LDL Cholesterol 173 (H) <100 MG/DL [facility] Calculated Comment: LDL CHOLESTEROL (MG/DL) GOALS AND CUTPOI NTS FOR THERAPEUTIC LIFESTYLE CHANGES (TLC) AND DRUG THERAPY IN DIFFERENT RISK CATEGORIES (AFTER EXCL USION OR, IF APPROPRIATE, TREATMENT OF SECONDARY C AUSES OF LDL ELEVATION). FROM NCEP ATP-III REPORT, JULIANA Hill 2001. RISK CATEGORY ?LDL GOAL ?LDL TO ? LDL TO CONSIDER ? INITIATE TLC ??DRUG THERAPY - CHD OR CHD ?>129 EQUIVALENTS: ?(100-129: 10 YR RISK >20% ?<100 ? >99 ? DRUG OPTIONAL) 2+ RISK FACTORS: 10 YR RISK 10-20% ??<130 ? >129 ?>129 - 2+ RISK FACTORS: 10 YR RISK <10% ?<130 ? >129 ?>159 - 0-1 RISK FACTORS: ??<160 ? >159 ?>189 ?(160-189: ?DRUG OPTIONAL) Cholesterol/HDL Ratio 6.3 3.9 - 6.5 [facility] [place] Specimen (Source) Anatomical Location Collection Method / Collectio n Time Received Time / Laterality Volume 04/08/2001 Bailey Doran MD LABORATORY Performing Organization Address City/State/ZIP Code Phon e Number [facility] documented in this encounter Visit Diagnoses Diagnosis Mixed hyperlipidemia - Primary documented in this encounter Care Teams Flight Operation Coordinator Relationship Specialty Start Date End Date Bailey Doran MD PCP - General 09/20/00 03/25/[address], [address] [place] [address] documented as of this encounter
--- OUTSIDE RECORDS SUMMARY | 2022-07-09 12:43 | XMS_ITS | Encounter Summary ---
:1945 Author Organization [facility] Address [address] [place] [address] Care Team Providers Name Role Phone Miguel Woodward MD Primary Care Provider Reason for Visit Reason Comments Refill Request Encounter Details Date Type Department Care Team Description 04/18/2001 Refill [facility] ysicians Miguel Woodward MD Refill Request [address] , [facility] [address] [place] [address] [place], [place] [phone] (Wo rk) Social History Tobacco Use Types Packs/Day Years Used Date Smoking Tobacco: Former Cigarettes 0.5 16 Quit : 09/06/1978 Alcohol Use Standard Drinks/Week Comments Yes 10 (1 standard drink = 0.6 oz pure alcoh ol) 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 >> MIGUEL PINHiro WedApr 18, 2001 11:05 AM >> CALL RECEIVED. Contact: tgt [phone], pt Pt rec'd a letter stating to take liptior. Pt will need Rx-last one 02/04. [place]. documented in this encounter Plan of Treatment Not on filedocumented as of this encounter Visit Diagnoses Diagnosis Mixed hyperlipidemia - Primary documented in this encounter Care Teams Cobol Programmer Relationship Specialty Start Date End Date Miguel Woodward MD PCP - General 09/20/00 03/25/[address], [facility] [address] [place] [address] documented as of this encounter
--- OUTSIDE RECORDS SUMMARY | 2022-07-09 12:43 | XMS_ITS | Encounter Summary ---
:1945 Author Organization [place] Address [facility] [place] [address] Care Team Providers Name Role Phone Bailey Doran MD Primary Care Provider Reason for Referral - Closed Specialty Diagnoses / Procedures Referred By Contact Refer red To Contact Family Practice Diagnoses Routine general medical examination at a health care facility Bailey Doran MD [place], Barry Alan, [address], [facility] [address] [place] [address] [place] [address] Fax: Referral ID Status Reason Start Date Expiration Date Visits Requ ested Visits Authorized [id number] Closed 10/27/2000 09/05/2011 1 1 IC HEALTH SPECIALIST Reason for Visit Reason Comments Physical Encounter Details Date Type Department Care Team Description 10/27/2000 Office Visit [place] Bailey Branham ROUTIN E MEDICAL EXAM (Primary Dx); Physicians PANCREATIC DISORDER NOS; [address], VACCINE FOR TETANUS + DIPHTH [place]; [address] [place] [address] [place] [address] [phone] Social History Tobacco Use Types Packs/Day Years Used Date Smoking Tobacco: Former Cigarettes 0.5 16 Quit : 09/06/1978 Alcohol Use Standard Drinks/Week Comments Yes 10 (1 standard drink = 0.6 oz pure alcoh ol) 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 encounter Last Filed Vital Signs Vital Sign Reading Time Taken Comments Blood Pressure 134/82 10/27/2000 9:00 AM PUBLIC HEALTH SPECIALIST Pulse 78 10/27/2000 9:00 AM PUBLIC HEALTH SPECIALIST Temperature 36.7 ??C (98 ??F) 10/27/2000 9:00 AM PUBLIC HEALTH SPECIALIST Respiratory Rate - - Oxygen Saturation - - Inhaled Oxygen Concentration - - Weight 83.7 kg (184 lb 8 oz) 10/27/2000 9:00 AM PUBLIC HEALTH SPECIALIST Height 177.8 cm (5' 10) 10/27/2000 9:00 AM PUBLIC HEALTH SPECIALIST Body Mass Index 26.47 10/27/2000 9:00 AM PUBLIC HEALTH SPECIALIST documented in this encounter Progress Notes 10/27/2000 9:00 AM PUBLIC HEALTH SPECIALIST Chief Complaint: Rodolfo Quevedo is a 55 year old male who presents for physical exam after pancreatiti s due to a gallbladder stone in the common bile duct. See hospital records. Returned for one day surg sg for laparoscopic cholecystectomy. History of Present Illness: Episodes of numbness and tingli ng in the feet and swelling. Worse when he sits at his desk. Better when he gets up and walks, in fac t goes away with walking. Review of patient's past medical history indicates: PANCREATIC DISORDER N EC Comment: gallstoneinduced Review of patient's past surgica l history indicates: LAPAROSCOPY, SURGICAL; CHOLECYSTECTOMY Comment: Dr Jeevan guaman REMOVE TONSILS/ADENOIDS,12+ Y/O age 16 Comment: T & A 12+y.o. 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 Review of patient's stephanie rgies indicates: No Known Drug * Social History Marital Status: Spouse Name: Nicho boyd Years of Education: 16 Number of children: 2 Social History Main Topics Tobacco Use: Quit Packs/Day: .5 Years: 16 Quit date: 09/06/1978 Al[place] hol Use: Yes 6 oz/week Drug Use: No Sexually Active: Yes Partner s with: Female Control/Protection:Spermicide Other Topics Concern None on nikos e Social History Narrative (none) Review of patient's family history indicates: Heart Mother Respiratory Father Comm ent: emphysema Cancer Father Comment: bladder removal wit h cystoscopy GI Mother Comment: gallbladder Review Of Systems Skin: rash and cracking on his feet Eyes: glasses or contacts Ears/Nose /Throat: negative Respiratory: negative Cardiovascular: negative Gastrointestinal: gallbladder troubl e Genitourinary: negative Musculoskeletal: R shoulder bursitis Neurologic: negative Psychiatric: nega tive Hem atologic/Lymphatic/Immunologic: negative Endocrine: negative PHYSICAL EXAMINATION: BP 134/82 Pulse 78 Temp 98 Ht 5' 10 (1.78m) Wt 184 lbs 8 oz (83.69 kg) General appearance - healthy, cooperative Skin - Skin color, texture, turgor normal. No rashes or lesions. Head - Normocephalic. No masses, lesions, tenderness or abnormalities Eyes - conjunctivae/corneas clear. PERRL, EOM's intact. Fundi benign Ears - External ears normal. Canals clear. TM's normal.Nose/Sinuses - Nares normal. Se ptum midline. Mucosa normal. No drainage or sinus tenderness. Oropharynx - Lips, mucosa, and tongue n ormal. Teeth and gums normal. Neck - Neck supple. No adenopathy. Thyroid symmetric, normal size, Back - Back symmetric, no curvature. ROM normal. No CVA tenderness. Lungs - Percussion normal. Good diaph ragmatic excursion. Lungs clear Heart - PMI normal. No lifts, heaves, or thrills. RRR. No murmurs, cl icks gallops or rub Breasts - Breasts normal to inspection and palpation. Axillae negative Abdomen - Abdomen soft, non-tender. BS normal. No masses, organomegaly Extre mities - Extremities normal. No def ormities, edema, or skin discoloration. Musculoskeletal - Spine ROM normal. Muscular strength intact. Peripheral pulses - radial=4/4, femoral=4/4, popliteal=4/4, dorsalis pedis=4/4, Neuro - Gait normal. Reflexes normal and symmetric. Sensation grossly WNL. Genitalia- Penis normal. No urethral discharg e. Scrotum normal to palpation. No hernia. Rectal - Rectal negative. Prostate palpation negative. No rectal masses or abnormalities ASSESSMENT/PLAN: V70.0 ROUTINE MEDICAL EXAM (primary encounter diag nosis) Plan: HEMOGLOBIN, GLUCOSE, FASTING, A.M.A. HEPATIC PANEL, HEMOCCULT INFORMATION, A.M .A. LIPID PANEL, PSA, VENIPUNC FNGR,HEEL,EAR >3 YR CONSULT TO FAMILY PRACTICE [[id number]] Order # : [id number] Class: External referral for stress ECHO. TD IMMUNIZATION,IM/JET [[id number]] Order #: [id number] Cl ass: Normal documented in this encounter Nursing Notes 10/27/2000 9:00 AM CST >> TOM RIVAS 10/27/2000 9:11 am Pt. is new to our clinic. Pt. states his bp goes up at times. He also states that his feet feel numb at times and swell for no reason. He always has to put lotion on them everyday. Questioned patient about current smoking habits. Pt. quit smoking some time ago. documented in this encounter Plan of Treatment Not on filedocumented as of this encounter Procedures Procedure Name Priority Date/Time Associated Comments Diagnosis HCL PSA, DIAGNOSTIC Routine 10/28/2000 4:04 AM Routine Medical Results for this (TUMOR MARKER) PUBLIC HEALTH SPECIALIST Exam procedure are in the results section. HCL GLYCATED Routine 10/28/2000 1:46 AM Abn Glucose Toleran Re sults for this HEMOGLOBIN PUBLIC HEALTH SPECIALIST Test procedure are i n the results section. HCL HEPATIC PANEL Routine 10/28/2000 12:55 AM Pancreatic Disor yelitza Results for this PUBLIC HEALTH SPECIALIST Nos procedure are in Routine Medical the results Exam section. HCL LIPID PANEL Routine 10/28/2000 12:55 AM Routine Medical Re sults for this PUBLIC HEALTH SPECIALIST Exam procedure are i n the results section. HCL AMYLASE, SERUM Routine 10/28/2000 12:43 AM Pancreatic Diso rder Results for this PUBLIC HEALTH SPECIALIST Nos procedure are in Routine Medical the results Exam section. HCL URINALYSIS Routine 10/27/2000 10:32 AM Routine Medical Res ults for this NONAUTO W/O SCOPE PUBLIC HEALTH SPECIALIST Exam procedure are in [facility] the results section. CL AFF GLUCOSE, Routine 10/27/2000 10:03 AM Routine Medical Re sults for this FASTING PUBLIC HEALTH SPECIALIST Exam procedure are i n the results section. ZZCL AFF HEMOGLOBIN Routine 10/27/2000 10:03 AM Routine Medica l Results for this PUBLIC HEALTH SPECIALIST Exam procedure are i n the results section. HC VENOUS COLLECTION Routine 10/27/2000 9:29 AM Pancreatic Dis order PUBLIC HEALTH SPECIALIST Nos Routine Medical Exam documented in this encounter Results PSA (10/28/2000 4:04 AM PUBLIC HEALTH SPECIALIST) athologist Signature [place] PSA 1.5 0.0 - 4.0 [facility] NG/ML Specimen (Source) Anatomical Location Collection Method / Collectio n Time Received Time / Laterality Volume 10/27/2000 Narrative [facility] - 10/28/2000 4:04 AM PUBLIC HEALTH SPECIALIST PSA RESULTS BETWEEN 4.0 AND 8.0 NG/ML MAY INDICATE BENIGN PROSTATIC HYPERTROPHY OR CANCER OF THE P ROSTATE. RESULTS GREATER THAN 8.0 NG/ML ARE MORE SUGGESTI VE OF PROSTATIC CANCER AND SHOULD BE EVALUATED WITH FOLL OW-UP STUDIES. Bailey Doran MD LABORATORY Performing Organization Address City/[facility] Phon e Number [facility] [place] HEMOGLOBIN A1C (10/28/2000 1:46 AM PUBLIC HEALTH SPECIALIST) athologist Signature Hemoglobin A1C 6.3 UPTO7.0% [facility] PERCENT Comment: COMMENT: ?? A HEMOGLOBIN A1C OF LESS THAN 7.0% M EETS THE ADA'S ?? RECOMMENDED GOAL FOR THERAPY. THE TR EATMENT REGIMEN ?? SHOULD BE REEVALUATED IF THE HEMOGLO BIN A1C ?? EXCEEDS 8.0%. ?? NON-DIABETIC REFERENCE RANGE: ?? LES S THAN 6.5%. PLEASE NOTE NEW REFERENCE RANGE FOR NON-DIABETIC ? EFFEC TIVE 05/24/00 Specimen (Source) Anatomical Location Collection Method / Collectio n Time Received Time / Laterality Volume 10/27/2000 Bailey Doran MD LABORATORY Performing Organization Address City/State[place]IP [facility] [place]on [place] Number [facility] [place] (ABNORMAL) A.M.A. LIPID PANEL (10/28/2000 12:55 AM PUBLIC HEALTH SPECIALIST) [facility] gist Method Time Signature Comments DNR [facility] Triglycerides 243 (H) 40 - 199 MG/DL [facility] Cholesterol 270 (H) 120 - 199 [facility] MG/DL [place] Cholesterol 87 PERCENTILE [facility] Percentile [place] HDL Cholesterol 37.6 35ORHIGHER [facility] MG/DL [place] LDL Cholesterol 184 (H) 75 - 129 MG/DL [facility] Calculated [place] Comment: ?NATIONAL CHOLESTEROL EDUCATION PROGRAM (NCEP) ? TREATMENT GUIDELIN ES SUMMARY ?DIETARY THERAPY ?? DRUG T REATMENT ?GOAL OF ? INITIATION LEVEL ??CONSI DERATION ? THERAPY LDL CHOLESTEROL ?? (MG/DL) ? (MG/ DL) ?(MG/DL) ? W/O CHD AND <2 RISK FACTORS ?> OR = 160 ? > OR = 190 ? < 160 W/O CHD AND > OR = 2 RISK FACTORS ? > OR = 130 ? > OR = 160 ? < 130 WITH CHD ? > 100 ?> OR = 130 ? < OR = 100 NCEP RECOMMENDS THAT DIETARY AND/OR DRUG TREATMENT NOT BE INITIATED BASED ON A SINGLE LDL CHOLESTE ROL RESULT. PLEASE REFER TO SECOND REPORT OF THE NCEP IN [facility] 1993;[id number] FOR GUIDELINES. Cholesterol/HDL Ratio 7.2 (H) 3.9 - 6.5 [facility] [place] Specimen (Source) Anatomical Location Collection Method / Collectio n Time Received Time / Laterality Volume 10/27/2000 Bailey Doran MD LABORATORY Performing Organization Address City/State/ZIP Code Phon e Number [facility] A.M.A. HEPATIC PANEL (10/28/2000 12:55 AM PUBLIC HEALTH SPECIALIST) athologist Signature Comments DNR [facility] Protein Total 6.8 6.2 - 8.2 [facility] GM/DL Albumin 4.7 3.7 - 5.2 [facility] GM/DL Globulin 2.1 1.9 - 3.6 [facility] Calculated GM/DL A/G Ratio 2.2 1.1 - 2.3 [facility] Bilirubin Total 0.63 0.30 - [facility] 1.40 MG/DL Bilirubin Direct 0.09 0.04 - [facility] 0.20 MG/DL Alkaline 78 43 - 145 [facility] Phosphatase U/L AST 13 1 - 45 [facility] IU/L ALT 20 1 - 55 [facility] IU/L DNR 0.54 [facility] Specimen (Source) Anatomical Location Collection Method / Collectio n Time Received Time / Laterality Volume 10/27/2000 Bailey Doran MD LABORATORY Performing Organization Address City/[facility]/ZIP [facility] Phon e Number [facility] AMYLASE, SERUM (10/28/2000 12:43 AM PUBLIC HEALTH SPECIALIST) athologist Signature Amylase 36 0 - 100 U/L [facility] Specimen (Source) Anatomical Location Collection Method / Collectio n Time Received Time / Laterality Volume 10/27/2000 Bailey Doran MD LABORATORY Performing Organization Address [facility] Phon e Number ADAM MARTINEZ URINALYSIS NONAUTO W/O SCOPE (10/27/2000 10:32 AM PUBLIC HEALTH SPECIALIST) athologist Signature Glucose Urine neg neg - neg [facility] mg/dL Albumin Urine neg neg - neg [facility] mg/dL Specimen (Source) Anatomical Collection Method Collection Time Re ceived Time Location / / Volume Laterality 10/27/2000 10:32 AM PUBLIC HEALTH SPECIALIST Bailey Doran MD LABORATORY Performing Organization Address City/[facility] Phon e Number [facility] (ABNORMAL) GLUCOSE, FASTING (10/27/2000 10:03 AM PUBLIC HEALTH SPECIALIST) athologist Signature Glucose 128 (A) 60 - 120 [facility] mg/dL Specimen (Source) Anatomical Collection Method Collection Time Re ceived Time Location / / Volume Laterality 10/27/2000 10:03 AM PUBLIC HEALTH SPECIALIST Bailey Doran MD LABORATORY Performing Organization Address City/State/ZIP Code Phon e Number [facility] HEMOGLOBIN (10/27/2000 10:03 AM PUBLIC HEALTH SPECIALIST) athologist Signature Hemoglobin 16.7 14 - 18 [facility] GM/DL Specimen (Source) Anatomical Collection Method Collection Time Re ceived Time Location / / Volume Laterality 10/27/2000 10:03 AM PUBLIC HEALTH SPECIALIST Bailey Doran MD LABORATORY Performing Organization Address City/State/ZIP Code Phon e Number [facility] documented in this encounter Visit Diagnoses Diagnosis Routine general medical examination at a health care facility - Primary Unspecified disorder of pancreatic inter nal secretion Need for prophylactic vaccination with t etanus-diphtheria (Td) Abnormal glucose documented in this encounter Care Teams Liner Assembler Relationship Specialty Start Date End Date Bailey Doran MD PCP - General 09/20/00 03/25/[address], [facility] [address] [place] [address] documented as of this encounter
--- OUTSIDE RECORDS SUMMARY | 2022-07-09 12:43 | XMS_ITS | Encounter Summary ---
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 ZZCL AFF WBC Routine 05/20/2000 ABSTRACTING RESULTS Results for this procedure are i n the results section . HCL HEMATOCRIT Routine 05/20/2000 ABSTRACTING RESULTS Result s for this procedure are i n the results section . ZZCL AFF CLINICAL Routine 05/20/2000 ABSTRACTING RESULTS Res ults for this CHEMISTRY TEST procedure are in the results section . documented in this encounter Results A.M.A.'S ELECTROLYTE PANEL (05/20/2000) P athologist Signature Sodium 140 134 - 145 [facility] [place] MMOL/L Potassium 3.8 3.5 - 5.5 [facility] [place] MMOL/L Chloride 103 94 - 109 [facility] [place] MMOL/L Carbon Dioxide 29 20 - 32 [facility] [place] MMOL/L Specimen (Source) Anatomical Location Collection Method / Collectio n Time Received Time / Laterality Volume 05/20/2000 Narrative [facility] - 05/20/2000 ANION GAP = 7 ??(ref. range = 6-17 mmol/l) *no components in computer. Abstracted from paper copy. Provider Abstract LABORATORY Performing Organization Address [facility]/ZIP Code Phon e Number [facility] [place] (ABNORMAL) CLINICAL CHEMISTRY TEST (05/20/2000) Analysis Performed At Patho logist Time Signature Alkaline 113 40 - 150 [facility] [place] Phosphatase U/L ALT 383 (A) 0 - 70 U/L [facility] [place] Amylase 273 (A) 30 - 110 [facility] [place] U/L AST 86 (A) 0 - 55 U/L [facility] [place] Bilirubin Direct 0.7 (A) 0.0 - 0.5 [facility] [place] MG/DL Bilirubin Total 1.6 0.0 - 1.6 [facility] [place] MG/DL Specimen (Source) Anatomical Location Collection Method / Collectio n Time Received Time / Laterality Volume 05/20/2000 Narrative [facility] - 05/20/2000 Abstracted from paper copy. Provider Abstract LABORATORY Performing Organization Address [facility]/[place]IP [facility] [place] e Number [facility] [place] (ABNORMAL) WBC (05/20/2000) P athologist Signature WBC 14.5 (A) 4.3 - 11 [facility] [place] .MM Specimen (Source) Anatomical Location Collection Method / Collectio n Time Received Time / Laterality Volume 05/20/2000 Narrative [facility] - 05/20/2000 Abstracted from paper copy. Provider Abstract LABORATORY Performing Organization Address City/State/ZIP Code Phon e Number [facility] HEMATOCRIT (05/20/2000) P athologist Signature Hematocrit 43.3 40 - 54 [facility] Percent Specimen (Source) Anatomical Location Collection Method / Collectio n Time Received Time / Laterality Volume 05/20/2000 Narrative [facility] - 05/20/2000 Abstracted from paper copy. Provider Abstract LABORATORY Performing Organization Address City/State/ZIP Code Phon e Number [facility] documented in this encounter Visit Diagnoses Diagnosis ABSTRACTING RESULTS - Primary documented in this encounter
--- OUTSIDE RECORDS SUMMARY | 2022-07-09 12:43 | XMS_ITS | Encounter Summary ---
:1945 Author Organization [facility] Address [address] [place] [address] Care Team Providers Name Role Phone Bailey Doran MD Primary Care Provider Reason for Visit Reason Comments Results Encounter Details Date Type Department Care Team Description 11/02/2000 Office Visit [facility] Bailey Doran, MIXED HYPERLIPIDEMIA; Physicians DIABETES UNCOMPL ADULT-TYPE II [address] [id number] [phone] Social History Tobacco Use Types Packs/Day Years Used Date Smoking Tobacco: Former Cigarettes 0.5 16 Quit : 09/06/1978 Alcohol Use Standard Drinks/Week Comments Yes 10 (1 standard drink = 0.6 oz pure alcoh ol) 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 Normal HGB A1C OBJECTIVE: Alert , oriented, well hydrated. Skin turgor normal. Regular rate and rhythm. S1 and S2 normal, no murmurs , clicks, gallops or rubs. No edema or JVD. Chest is clear; no wheezes or rales. BPexcellent. ASSES SMENT: MIXED HYPERLIPIDEMIA [272.2] DIABETES UNCOMPL ADULT-TYPE II [250.00] PLAN: Stress ECHO pendi ng. METFORMIN HCL TABS 500 MG OR, 1 tab po bid with food, D: 64, R: 3 LIPITOR TABS 10 MG OR, 1 tab PO QD (Once per day), D: 32, R: 3. Pros and cons of medication reviewed. Recheck fasting blood work 6-8 weeks. Peanut butter diet in [employer] magazine reviewed. documented in this encounter Nursing Notes 11/02/2000 5:30 PM CST >> MIGUEL PARKER 11/02/2000 5:44 pm Pt had blood work drawn at last visit. documented in this encounter Plan of Treatment Not on filedocumented as of this encounter Visit Diagnoses Diagnosis Mixed hyperlipidemia Type II or unspecified type diabetes vijaya litus without mention of complication, not stated as uncontrolled documented in this encounter Care Teams International Operations Manager Relationship Specialty Start Date End Date Bailey Doran MD PCP - General 09/20/00 03/25/[address], [address] [place] [address] documented as of this encounter
--- OUTSIDE RECORDS SUMMARY | 2022-07-09 12:43 | XMS_ITS | Encounter Summary ---
:1945 Author Organization [place] Address [address] [place] [address] Care Team Providers Name Role Phone Bailey Doran MD Primary Care Provider Reason for Referral - Closed Specialty Diagnoses / Procedures Referred By Contact Refer red To Contact Diagnoses Type II or unspecified type diabetes mellitus without mention of complication, not stated as uncontrolled Bailey Doran MD [address], [facility] [address] [place] [address] Referral ID Status Reason Start Date Expiration Date Visits Requ ested Visits Authorized [id number] Closed 12/27/2000 09/05/2011 1 1 Reason for Visit Reason Comments Lipids recheck Diabetes Encounter Details Date Type Department Care Team Description 12/27/2000 [facility] Bailey Doran, DIABET ES UNCOMPL ADULT-TYPE II (Primary Dx); Physicians MIXED HYPERLIPIDEMIA [address], [address] [place] [id number] Social History Tobacco Use Types Packs/Day Years Used Date Smoking Tobacco: Former Cigarettes 0.5 16 Quit : 09/06/1978 Alcohol Use Standard Drinks/Week Comments Yes 10 (1 standard drink = 0.6 oz pure alcoh ol) 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 Feet numbness gone. Walking 3-6 miles 5 day s a week. 5 pound weight loss noted. Reviewed normal stress Echo. OBJECTIVE: Alert, oriented, well h ydrated. Skin turgor normal. Foot and ankle exam is normal. Colorand temperature of the feet is norm al. Peripheral pulses are palpable. Regular rate and rhythm. S1 and S2 normal, no murmurs, clicks, g allops or rubs. No edema or JVD. Chest is clear; no wheezes or rales. ASSESSMENT: MIXED HYPERLIPIDE UTE [272.2] DIABETES UNCOMPL ADULT-TYPE II [250.00] PLAN: GLUCOSE, FASTING [83105.002] Order #: [id number] Class: Lab internal A.M.A. LIPID PANEL [38105.003] Order #: [id number] Class: [facility] AST [[id number] 90] Order #: [id number] Class: [facility] HEMOGLOBIN A1C [[id number]] Order #: [id number] Class: [facility] Diabete s education referral. CONSULT TO OTHER SPECIALTY [[id number]] Order #: [id number] Class: External referral documented in this encounter Nursing Notes 12/27/2000 7:50 AM CDT >> ÁNGEL ENAMORADO 12/27/2000 8:00 am Questioned patient about current smoking habits. Pt. has never smoked. documented in this encounter Plan of Treatment Not on filedocumented as of this encounter Procedures Procedure Name Priority Date/Time Associated Comments Diagnosis HCL LIPID PANEL Routine 12/28/2000 1:44 AM Mixed Result s for this CDT Hyperlipidemia procedure are in Diabetes Uncompl the results Adult-Type Ii section. HCL GLYCATED Routine 12/28/2000 1:10 AM Mixed Results f or this HEMOGLOBIN CDT Hyperlipidemia procedure are in Diabetes Uncompl the results Adult-Type Ii section. HCL AST Routine 12/27/2000 11:57 PM Mixed Results for this CDT Hyperlipidemia procedure are in Diabetes Uncompl the results Adult-Type Ii section. HC VENOUS COLLECTION Routine 12/27/2000 8:14 AM Mixed CDT Hyperlipidemia Diabetes Uncompl Adult-Type Ii CL AFF GLUCOSE, Routine 12/27/2000 8:13 AM Mixed Result s for this FASTING CDT Hyperlipidemia procedure are in Diabetes Uncompl the results Adult-Type Ii section. documented in this encounter Results A.M.A. LIPID PANEL (12/28/2000 1:44 AM CDT) [facility] gist Method Time Signature Comments DNR [facility] [place] Triglycerides 139 40 - 199 MG/DL [facility] Cholesterol 170 120 - 199 [facility] MG/DL [place] Cholesterol 9 PERCENTILE [facility] Percentile [place] HDL Cholesterol 41.3 35ORHIGHER [facility] MG/DL [place] LDL Cholesterol 101 75 - 129 MG/DL [facility] Calculated [place] Comment: ?NATIONAL CHOLESTEROL EDUCATION PROGRAM (NCEP) ? [...] TO SECOND REPORT OF THE NCEP IN [facility] 1992;[id number]:[id number] FOR GUIDELINES. Cholesterol/HDL Ratio 4.1 3.9 - 6.5 [facility] [place] Specimen (Source) Anatomical Location Collection Method / Collectio n Time Received Time / Laterality Volume 12/27/2000 Bailey Doran MD LABORATORY Performing Organization Address [facility] Phon e Number ADAM MARTINEZ HEMOGLOBIN A1C (12/28/2000 1:10 AM CDT) P athologist Signature Hemoglobin A1C 6.1 PERCENT ADAM MARTINEZ Specimen (Source) Anatomical Location Collection Method / Collectio n Time Received Time / Laterality Volume 12/27/2000 Narrative AD[facility] [place] - 12/28/2000 1:10 AM CDT REFERENCE RANGE: ??NON-DIABETIC ??<6.5% THE [place]ATION RECOMM ENDS THAT THE GOAL OF THERAPY SHOULD BE A HEMOGLOBIN A 1C OF <7% AND THAT PHYSICIANS SHOULD REEVALUATE THE TR EATMENT REGIMEN IN PATIENTS WITH HEMOGLOBIN A1C VALUES CONSISTENTLY >8%. Bailey Doran MD LABORATORY Performing Organization Address [facility] Phon e Number ADAM MARTINEZ AST (12/27/2000 11:57 PM CDT) P athologist Signature AST 17 1 - 45 U/L ADAM MARTINEZ Specimen (Source) Anatomical Location Collection Method / Collectio n Time Received Time / Laterality Volume 12/27/2000 Bailey Doran MD LABORATORY Performing Organization Address [facility] Phon e Number ADAM MARTINEZ (ABNORMAL) GLUCOSE, FASTING (12/27/2000 8:13 AM CDT) P athologist Signature Glucose 122 (A) 60 - 115 [facility] mg/dL Specimen (Source) Anatomical Collection Method Collection Time Re ceived Time Location / / Volume Laterality 12/27/2000 8:13 AM CDT Bailey Doran MD LABORATORY Performing Organization Address [facility] Phon e Number [facility] documented in this encounter Visit Diagnoses Diagnosis Type II or unspecified type diabetes vijaya litus without mention of complication, not stated as uncontrolled - Primary Mixed hyperlipidemia documented in this encounter Care Teams [place] Machine Operator Relationship Specialty Start Date End Date Bailey Doran MD PCP - General 09/20/00 03/25/[address] [facility] [address] [place] [address] documented as of this encounter
--- OUTSIDE RECORDS SUMMARY | 2022-07-09 12:43 | XMS_ITS | Encounter Summary ---
:1945 Author Organization [facility] Address [address] [place] [address] Care Team Providers Name Role Phone Bailey Doran MD Primary Care Provider Encounter Details Date Type Department Care Team Description 11/22/2001 Telephone [facility] ysicians Bailey Doran MD [address] [place] [address] [address] [address] [place] [address] [place] [address] (Wo rk) Social History Tobacco Use Types Packs/Day Years Used Date Smoking Tobacco: Former Cigarettes 0.5 16 Quit : 09/06/1978 Alcohol Use Standard Drinks/Week Comments Yes 10 (1 standard drink = 0.6 oz pure alcoh ol) 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 Contact: Pharmacy calling for refill on Pt's lipitor. Pt was informed back in oct to make an appt for fasting labs. Rx denied. documented in this encounter Plan of Treatment Not on filedocumented as of this encounter Visit Diagnoses Not on filedocumented in this encounter Care Teams Division Engineer Relationship Specialty Start Date End Date Bailey Doran MD PCP - General 09/20/00 03/25/[address], [address] [place] [address] documented as of this encounter
--- OUTSIDE RECORDS SUMMARY | 2022-07-09 12:43 | XMS_ITS | Encounter Summary ---
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 HEMOGRAM Routine 05/19/2000 ABSTRACTING RESULTS Results for this procedure are i n the results section . ZZCL AFF CLINICAL Routine 05/19/2000 ABSTRACTING RESULTS Res ults for this CHEMISTRY TEST procedure are in the results section . documented in this encounter Results A.M.A.'S ELECTROLYTE PANEL (05/19/2000) P athologist Signature Sodium 138 134 - 145 [facility] [place] MMOL/L Potassium 3.8 3.5 - 5.5 [facility] [place] MMOL/L Chloride 104 94 - 109 [facility] [place] MMOL/L Carbon Dioxide 26 20 - 32 [facility] [place] MMOL/L Specimen (Source) Anatomical Location Collection Method / Collectio n Time Received Time / Laterality Volume 05/19/2000 Narrative [facility] [place] - 05/19/2000 ANION GAP = 7 (ref. range = 6-17 mmol/l) *no component in computer. Abstracted from paper copy. Provider Abstract LABORATORY Performing Organization Address City/State/ZIP Code Phon e Number ADAM MARTINEZ (ABNORMAL) CLINICAL CHEMISTRY TEST (05/19/2000) P athologist Signature Amylase 711 (A) 30 - 110 [facility] [place] U/L Bilirubin Total 2.7 (A) 0.0 - 1.6 [facility] [place] MG/DL Calcium 8.0 (A) 8.5 - 10.4 [facility] [place] MG/DL Creatinine 0.9 0.8 - 1.7 [facility] [place] MG/DL Glucose 183 (A) 60 - 115 [facility] [place] MG/DL Albumin 2.7 (A) 3.3 - 4.6 [facility] [place] G/DL Protein Total 5.5 (A) 6.0 - 8.2 [facility] [place] G/DL Urea Nitrogen 7 7 - 30 [facility] [place] MG/DL Specimen (Source) Anatomical Location Collection Method / Collectio n Time Received Time / Laterality Volume 05/19/2000 Narrative ADAM [place] - 05/19/2000 Abstracted from paper copy. Provider Abstract LABORATORY Performing Organization Address City/[facility] Phon e Number ADAM MARTIENZ (ABNORMAL) HEMOGRAM W/O PLATELET COUNT (05/19/2000) P athologist Signature WBC 13.7 (A) 4.3 - 11 [facility] Thousand/CU. MM RBC Count 4.60 4.6 - 11 [facility] Thousand/CU. MM Hemoglobin 15.4 14 - 18 G/DL [facility] Hematocrit 44.3 40 - 54 [facility] Percent MCV 96.2 (A) 80 - 94 FL [facility] MCH 33.4 (A) 26 - 33 PG [facility] MCHC 34.7 31 - 36 [facility] PERCENT RDW 10.9 10 - 15 % [facility] Specimen (Source) Anatomical Location Collection Method / Collectio n Time Received Time / Laterality Volume 05/19/2000 Narrative [facility] - 05/19/2000 Abstracted from paper copy. Provider Abstract LABORATORY Performing Organization Address City/State/ZIP Code Phon e Number [facility] documented in this encounter Visit Diagnoses Diagnosis ABSTRACTING RESULTS - Primary documented in this encounter
--- OUTSIDE RECORDS SUMMARY | 2022-07-09 12:44 | XMS_ITS | Encounter Summary ---
:1945 Author Organization [facility] Address [address] [place] [address] Care Team Providers Name Role Phone Andrey Tamez MD Primary Care Provider Andrey Tamez MD Unavailable Andrey Tamez MD Unavailable Reason for Visit Reason Onset Date Comments Medication Request 04/27/2018 90 day supply Metfor min Encounter Details Date Type Department Care Team Description 04/27/2018 Telephone [facility] Andrey Tamez MD Medication Request (90 [facility] [address] [facility] day supply Metformin) [address] [place] [address] [place] [address] [place], [place] [phone] (Wo rk) [address] [phone] Social History Tobacco Use Types Packs/Day Years Used Date Smoking Tobacco: Former Cigarettes 0.5 16 Quit : 09/06/1978 Smokeless Tobacco: Never Alcohol Use Standard Drinks/Week Comments Yes 10 (1 standard drink = 0.6 oz pure alcoh ol) A drink every 1-2 weeks. 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 Prescription was sent for 30 day supply on 04/22/18 as patient was due for appointment. Future appointment scheduled: Next 5 appointments (look out 90 days) Jul 06, 2018 8:20 AM CDT SHORT with Andrey Tamez MD [facility] ([facility] Sherine Mcdonald [facility] [phone] Authorized 90 day supply per [facility] refill protocol. documented in this encounter Plan of Treatment Not on filedocumented as of this encounter Visit Diagnoses Diagnosis 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, without long-term current use of insulin (H) documented in this encounter Care Teams Radiology Director Relationship Specialty Start Date End Date Andrey Tamez MD PCP - General 03/26/09 Andrey Tamez MD PCP - Assigned PCP 09/11/12 11/08/18 [address] [place] [address] Andrey Tamez MD Assigned PCP 09/11/12 09/07/20 Sherine Meyer [address] [place] [address] documented as of this encounter
--- OUTSIDE RECORDS SUMMARY | 2022-07-09 12:46 | XMS_ITS | Encounter Summary ---
:1945 Author Organization [place] Address [address] [place] [address]. [place] [address] Care Team Providers Name Role Phone Shane Tamez MD Primary Care Provider Shane Tamez MD Unavailable Shane Tamez MD Unavailable Encounter Details Date Type Department Care Team Description 04/23/2010 Office Visit-[facility] Yazan Foreman [facility] Bean Madsen MD [address] [facility] [address] [place] [address] [address] [place] [address] [place] [id number] (Wo rk) Social History Tobacco Use Types Packs/Day Years Used Date Smoking Tobacco: Former Cigarettes 0.5 16 Quit : 09/06/1978 Alcohol Use Standard Drinks/Week Comments Yes 10 (1 standard drink = 0.6 oz pure alcoh ol) 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 DATE: 04/23/2010 NAEEMRODOLFO DATE OF : 1945 AGE: [age] years old Referring Physician: SHANE TAMEZ Referring Clinic: [facility] CURRENT DIAGNOSES 1. - CAD, 414.00 2. VA-S/P Anterior, 412 3. PTCA-LAD FLORI stent 03/2005 for AMI, V45.82 4. - Hyperlipidemia, 272.4 5. - Hypertension, benign, 401.1 6. Diabetes Mellitus-NIDD/circ dis/uncont, 250.72 7. Cerebral Vascular Accident, 435.9 8. - Cardiomyopathy Ischemic, 414.8 ALLERGIES NKA MEDICATIONS (prior to changes made today) 1. Vytorin 10-20 10-20 mg Tablet, 1 qHS 2. Metoprolol 75mg, 1 p.o. twice daily 3. Plavix 75 Mg Tablet, 1 p.o. daily 4. Ramipril 10 Mg Capsule, 1 p.o. twice daily 5. Nitroglycerin 0.4 mg Tablet, Sublingual, Take as Directed CHIEF COMPLAINTS Followup of - CAD, Followup of - Hypertension, benign and Followup of VA-S/P Anterior HISTORY OF PRESENT ILLNESS I had the pleasure of seeing Mr. Quevedo today. This is 64-year-old gentleman is seen in followup ofhis history of coronary artery disease. In 2004, he presented with an acute anterior myocardial infarction, treated with emergent left anterior descending stenting. Clinically, he has been stable this year. He has retired but remains active. He has had no limiting symptoms or concerns. He is without chest discomfort, dyspnea on exertion, claudication or focal neurologic symptoms. He denies myalgias, muscle weakness, orthopnea, palpitations, or syncope. He has been concerned that his blood pressure is not optimally controlled, and his medications were increased six months ago. For the last month or so he has been taking his blood pressures quite regularly. He has employing the strategy of taking them about three to four times over 10 to 20 minutes and averagingthem. He states although they usually start out at 140/80, over the course of his multiple measurements they are averaging 130/66 or so. Cardiopulmonary exam is normal today. PAST HISTORY Past Medical Illnesses: hyperlipidemia, diabetes iyzcebsi-gxv-rgwcmgo dependent, hypertension, CVA without residual deficits Past Cardiac Illnesses: positive family hx cvd, coronary artery disease, S/P myocardial infarction- 2004 Cardiology Procedures-Invasive: cardiac cath (left) March [...] ischemia SOCIAL HISTORY Alcohol Use - drinks occasionally; Smoking - used to smoke but quit and 1980; Diet - low cholesterol, low sodium (less than 2 grams), low fat Diet and caffeine use-1-2 per day; Lifestyle - ; Exercise - exercises daily, Lifetime fitness 35-45 min, cycling, rowing machine, treadmill, weight lifting and swimming; Seat Belt Use - always; Occupation - retired and 06/2009; Residence - lives with ; Place of - [place]; Hours Worked - 40 hours per week; REVIEW OF SYSTEMS GENERAL no change in weight, no change in appetite, positive for energy INTEGUMENTARY denies any change in hair or [...] disorders. PHYSICAL EXAMINATION VITAL SIGNS: Blood Pressure: 149/72Sitting, Left arm, large cuff Pulse- 60.00/min. Weight- 185.40 lbs. Height- 70.00 Temperature- .00 CONSTITUTIONAL well [...] time, person and place. MEDICATIONS UPDATED/STARTED TODAY: IMPRESSIONS/PLAN 1. Coronary artery disease, without ischemic heart failure or arrhythmia symptoms. Last ejection fraction around 50% at the end of 2007 when he had a negative stress study. 2. Status-post anterior myocardial infarction with residual apical wall motion abnormality but the ejection fraction as above and stable after left anterior descending stenting. 3. Hypertension. The numbers he brings in today, I think, are reasonable control. I will have him continue to do this over the next few months to make sure he is staying in that range. 4. Dyslipidemia. He remains on statin therapy at a dose where he was at appropriate level a year ago. Lipids are followed with Dr. Tamez. It is a pleasure seeing this gentleman doing well. I will continue him on his current regimen, pending his continued followup of his blood pressure. Please let me know if you have any questions. TODAYS ORDERS 1. F/U with Katy Trevizo, MSN, DRY CLEANER PRESSER 1 year Yazan Foreman M.D. documented in this encounter Plan of Treatment Not on filedocumented as of this encounter Visit Diagnoses Not on filedocumented in this encounter Care Teams Paper Cap Machine Operator Relationship Specialty Start Date End Date Shane Tamez MD PCP - General 03/26/09 Shane Tamez MD PCP - Assigned PCP 09/11/12 11/08/18 [address] [place] [address] Shane Tamez MD Assigned PCP 09/11/12 09/07/20 [address] [place] [address] documented as of this encounter
[2022-07-09 12:50] LABS: Basophils Absolute Auto 0.04 K/uL (0.00-0.30); Basophils Percent Auto 0.5 % (0.0-3.0); Eosinophils Absolute Auto 0.09 K/uL (0.00-0.50); Eosinophils Percent Auto 1.1 % (0.0-7.0); Hematocrit 40.5 % (37.0-53.0); Hemoglobin* 13.4 gm/dL (13.5-17.5); Immature Granulocytes Abs Auto 0.02 K/uL (0.00-0.30); Immature Granulocytes Pct Auto 0.2 %; Lymphocytes Percent Auto 12.9 % (20-44); Mean Corpuscular HGB Conc 33 gm/dL (32-36); Mean Corpuscular Hemoglobin 33 pg (26-34); Mean Corpuscular Volume 99 fL (80-100); Neutrophils Percent Auto 74.3 % (42.0-72.0); Platelet Count* 309 K/uL (140-440); Red Blood Count 4.11 m/uL (4.30-5.90); Slide Review Reflex No; White Blood Count* 8.01 K/uL (4.50-11.00)
[2022-07-09 13:06] LABS: Albumin* 4.6 g/dL (3.3-5.0); Chloride* 97 mmol/L (96-114); D Dimer Quantitative* 0.84 ug/ml (0.00-0.50); Sodium* 135 mmol/L (135-149)
[2022-07-09 13:07] LABS: Potassium* 4.6 mmol/L (3.6-5.1)
[2022-07-09 13:09] LABS: Aspartate Amino Transferase* 20 U/L (12-35); Bilirubin Direct* 0.2 mg/dL (0.0-0.5); Bilirubin Total* 0.3 mg/dL (0.1-1.5); Blood Urea Nitrogen* 30 mg/dL (7-30); Carbon Dioxide* 24 mmol/L (20-32); Creatinine* 1.5 mg/dL (0.5-1.5); Est. Creatinine Clearance* 42.58; Estimated Glomerular Filt Rate 48 ml/min; Total Protein* 7.1 g/dL (6.0-8.3)
[2022-07-09 13:10] LABS: Alanine Aminotransferase* 18 U/L (4-50); Alkaline Phosphatase* 83 U/L (40-150); Calcium* 9.5 mg/dL (8.4-10.6); Glucose* 109 mg/dL (60-115)
[2022-07-09 13:12] LABS: C Reactive Protein* 0.5 mg/dL (0.5-1.0)
[2022-07-09 13:19] LABS: NT Pro B Type NatriureticPept* 162 PG/mL (0-450)
--- NOTE | 2022-07-09 13:58 | CRLHL7_ITS ---
For Patients: As a result of the Century Cures Act, medical imaging exams and procedure reports are released immediately into your electronic medical record. You may view this report before your referring provider. If you have questions, please contact your health care provider. INDICATION: Left chest pain, elevated D-dimer. TECHNIQUE: CT chest PE was acquired with 95 mL Isovue 370 IV contrast. Coronal and sagittal reformats were generated. COMPARISON: None. FINDINGS: Pulmonary arteries: The quality of enhancement of the pulmonary arteries is adequate. No filling defects to suggest pulmonary emboli. No findings of pulmonary artery hypertension. Thyroid: Enlarged right thyroid lobe, with multiple hypodense foci. Thoracic lymph nodes: No enlarged supraclavicular, mediastinal, hilar, or axillary lymph nodes. Mediastinum and esophagus: Unremarkable. Heart and vasculature: Unremarkable. Lungs: Vague focus of ground-glass opacity in right upper lobe (5/53). New concerning pulmonary nodules or focal consolidations. Right basilar scarring. Pleura: Unremarkable. Chest wall: Unremarkable. Upper abdomen: No acute or significant findings. Bones: Unremarkable for age. IMPRESSION: 1. No pulmonary embolism. 2. Vague right upper lobe ground-glass opacity could be inflammatory change or atelectasis. 3. Enlarged heterogeneous right thyroid lobe could be multinodular goiter. Consider correlation with nonemergent thyroid ultrasound if not already performed. Please note that all CT scans at this facility use dose modulation, iterative reconstruction, and/or weight-based dosing when appropriate to reduce radiation dose to as low as reasonably achievable. Dictated by Aldair Chavez MD @ 07/09/2022 3:45:51 PM (Electronically Signed)
[2022-07-09 14:25] VITALS: BP 136/63; PULSE 70; RESP 16; O2SAT 98
== END 2022-07-09 16:22 | disposition home or self-care (01) ==
PROVIDERS: Emergency Provider Family Medicine; PCP Family Medicine
DX: R07.9 Chest pain, unspecified (principal); R94.6 Abnormal results of thyroid function studies; R91.8 Other nonspecific abnormal finding of lung field
CPT/HCPCS: 36415; 71045; 71260; 80053; 80076; 83880; 85025; 85379; 86140; 93005; 99284; 99285; Q9967

== ENCOUNTER 2022-07-28 17:14 | Outpatient (CLI) | payer OTHER, SELFPAY ==
--- OUTSIDE RECORDS SUMMARY | 2022-07-28 08:05 | XMS_ITS | Clinical Summary ---
:1945 Author Organization [place] Address [address] [place] [address] Care Team Providers Name Role Phone Andrey [...] Coronary MOUTH TWICE DAILY artery disease involving [place] coronary artery of [place] heart, angina presence unspecified clopidogrel (PLAVIX) 75 MG TAKE ONE TABLET BY 90 tablet 1 04/06 Active tabletIndications: Coronary MOUTH ONE TIME DAILY artery disease involving [place] coronary artery of [place] heart, angina presence unspecified metoprolol tartrate TAKE ONE TABLET BY 180 tablet 1 04/22/2018 Active (LOPRESSOR) 100 MG MOUTH TWICE DAILY tabletIndications: Coronary artery disease involving [place] coronary artery of [place] heart, angina presence unspecified metFORMIN (GLUCOPHAGE) 500 [...] diabetic polyneuropathy 02/07/2016 Coronary artery disease involving [place] coronary malcolm ry of [place] heart, 10/18/2015 angina presence unspecified Overview: Replacing diagnoses that were inactivate d after the 06/06/2021 regulatory import. 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 Vital Signs Vital Sign Reading Time Taken Comments Blood Pressure 136/70 09/07/2017 8:13 AM WOMEN SPECIALIST Pulse 71 09/07/2017 8:13 AM WOMEN SPECIALIST Temperature 36.7 ??C (98.1 ??F) 09/07/2017 8:13 AM WOMEN SPECIALIST Respiratory Rate 12 02/07/2016 9:09 AM CDT Oxygen Saturation 100% 09/07/2017 8:13 AM WOMEN SPECIALIST Inhaled Oxygen Concentration - - Weight 80.7 kg (178 lb) 09/07/2017 8:13 AM WOMEN SPECIALIST Height 176 cm (5' 9.29) 09/07/2017 8:13 AM WOMEN SPECIALIST Body Mass Index 26.07 09/07/2017 8:13 AM WOMEN SPECIALIST Plan of Treatment Health Maintenance Due Date [...] Effective Phone Address T ype Group Dates [facility] [id number] 2018-Pres [phone] [address] HMO MEDICARE ADVANTAGE ent [address] [place] [address] HEALTH,SECURITY NURSE Health Glass Production Machine Operator Other none (Home) Care of Yulissa Moffett [facility] ? ?[place] [address] Care Teams Plastic Boat Buffer Relationship Specialty Start Date End Date Andrey Tamez MD PCP - General 03/26/09
--- OUTSIDE RECORDS SUMMARY | 2022-07-28 08:05 | XMS_ITS | Encounter Summary ---
:1945 Author Organization [place] Address [address] [place] [address] Care Team Providers Name Role Phone Andrey Tamez MD Primary Care Provider Andrey Tamez MD Unavailable Andrey Tamez MD Unavailable Reason for Visit Reason Onset Date Comments Medication Request 04/27/2018 90 day supply Metfor min Encounter Details Date Type Department Care Team Description 04/27/[address] [facility] Andrey Tamez MD Medication Request (90 [facility] [address] [facility] day supply Metformin) [address] [place] [address] [place] [address] [place], [place] [phone] (Wo rk) [address] [phone] Social History Tobacco Use Types Packs/Day Years Used Date Smoking Tobacco: Former Cigarettes 0.5 16 Quit : 09/06/1978 Smokeless Tobacco: Never Alcohol Use Standard Drinks/Week Comments Yes 10 (1 standard drink = 0.6 oz pure alcoh ol) A drink every 1-2 weeks. 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 Prescription was sent for 30 day supply on 04/22/18 as patient was due for appointment. Future appointment scheduled: Next 5 appointments (look out 90 days) Jul 06, 2018 8:20 AM CDT SHORT with Andrey Tamez MD [facility] ([facility]) Sherine Mcdonald [facility] [phone] Authorized 90 day supply per [facility] refill protocol. 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
--- OUTSIDE RECORDS SUMMARY | 2022-07-28 08:05 | XMS_ITS | Encounter Summary ---
:1945 Author Organization [place] Address [address] [place] [address] Care Team Providers Name Role Phone Andrey Tamez MD Primary Care Provider Andrey Tamez MD Unavailable Andrey aTmez MD Unavailable Reason for Visit Reason Comments Medication Refill ACCU-CHEK SMARTVIEW test str ip Encounter Details Date Type Department Care Team Description 10/10/2018 Refill [facility] Andrey Tamez MD Medication Refill Clinic [place] [address] (ACCU-CHEK SMARTVIEW [address] [place] [address] test strip) [place] [address] [place], [place] [phone] (Wo rk) [address] [phone] Social History Tobacco Use Types Packs/Day Years Used Date Smoking Tobacco: Former Cigarettes 0.5 16 Quit : 09/06/1978 Smokeless Tobacco: Never Alcohol Use Standard Drinks/Week Comments Yes 10 (1 standard drink = 0.6 oz pure alcoh ol) A drink every 1-2 weeks. 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
--- OUTSIDE RECORDS SUMMARY | 2022-07-28 08:05 | XMS_ITS | Encounter Summary ---
:1945 Author Organization [place] Address [address] [place] [address] Care Team Providers Name Role Phone Andrey Tamez MD Primary Care Provider Andrey Tamez MD Unavailable Andrey Tamez MD Unavailable Reason for Visit Reason Comments Medicare Visit Encounter Details Date Type Department Care Team Description 09/07/2017 Office Visit [facility] Andrey Tamez Routin e general medical examination at a health care facility (Primary Dx); [facility] Coronary artery disease involving [place] coronary artery of [place] heart, angina presence unspecified; [address] [place] [address] Type 2 diabet es mellitus with other circulatory complication, without long-term current use of insulin (H); [address] Hyperlipidemia LDL goal <100; [place], [place] Essential h ypertension with goal blood pressure less than 140/90; [phone] Special screening for malignant neoplasm of prostate [phone] Social History Tobacco Use Types Packs/Day Years Used Date Smoking Tobacco: Former Cigarettes 0.5 16 Quit : 09/06/1978 Smokeless Tobacco: Never Alcohol Use Standard Drinks/Week Comments Yes 10 (1 standard drink = 0.6 oz pure alcoh ol) A drink every 1-2 weeks. 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 encounter Last Filed Vital Signs Vital Sign Reading Time Taken Comments Blood Pressure 136/70 09/07/2017 8:13 AM SCHOOL JANITOR Pulse 71 09/07/2017 8:13 AM SCHOOL JANITOR Temperature 36.7 ??C (98.1 ??F) 09/07/2017 8:13 AM SCHOOL JANITOR Respiratory Rate - - Oxygen Saturation 100% 09/07/2017 8:13 AM SCHOOL JANITOR Inhaled Oxygen Concentration - - Weight 80.7 kg (178 lb) 09/07/2017 8:13 AM SCHOOL JANITOR Height 176 cm (5' 9.29) 09/07/2017 8:13 AM SCHOOL JANITOR Body Mass Index 26.07 09/07/2017 8:13 AM SCHOOL JANITOR documented in this encounter Patient Instructions Patient [...] you in a year, sooner if problems. OL JANITOR documented in this encounter Progress Notes Andrey [...] COGNITIVE SCREEN 1) Repeat 3 items (Banana, [place], Chair) 2) Clock draw: NORMAL 3) 3 item recall: Recalls 3 objects Results: 3 items recalled: COGNITIVE IMPAIRMENT LESS LIKELY Mini-CogTM Celine Ramos. Licensed by the author for use in [facility]; reprintedwith permission ([email or web address]). All rights reserved. Diabetes Patient reports he [...] - Discussed PSA screening - Previously saw jack spooler tender, Dr. Foreman. Has not follow up with [...] his behalf by Ester Gabriel, a trained medical transcriber. The creation of this document is based on the provider's statements to the medical transcriber. Ester Gabriel September 07, 2017 8:53 AM [...] up yearly. (I25.10) Coronary artery disease involving [place] coronary artery of [place] heart, angina presence unspecified Comment: Stable. No [...] in this document, created by the medical transcriber for me, accurately reflects the services I personally performed and the decisions made by me. I have reviewed and approved this document for accuracy prior to leaving the patient care area. September 07, 2017 8:25 AM Andrey Tamez MD [facility] OL JANITOR documented in this encounter Nursing Notes Dennis [...] lb (80.7 kg). Medication Reconciliation: complete [place]ivo CIVIL ENGINEERING PROFESSIONAL OL JANITOR documented in this encounter Plan of Treatment Not on filedocumented as of this encounter Procedures Procedure Name Priority Date/Time Associated Diagnosis Comme nts PROSTATE SPECIFIC Routine 09/07/2017 8:41 Special screening fo r Results for this ANTIGEN SCREEN AM SCHOOL JANITOR malignant neoplasm of proc edure are in prostate the results section. LIPID REFLEX TO Routine 09/07/2017 8:41 Hyperlipidemia LDL Res ults for this DIRECT LDL PANEL AM SCHOOL JANITOR goal <100 procedure a re in the results section. HEMOGLOBIN A1C Routine 09/07/2017 8:41 Type 2 diabetes Results for this AM SCHOOL JANITOR mellitus with other procedur e are in circulatory the results complication, without sectio n. long-term current use of insulin (H) COMPREHENSIVE Routine 09/07/2017 8:41 Hyperlipidemia LDL Resul ts for this METABOLIC PANEL AM SCHOOL JANITOR goal <100 procedure ar e in the results section. CBC WITH PLATELETS Routine 09/07/2017 8:41 Routine general Res ults for this AM SCHOOL JANITOR [facility] health care facility the r esults section. documented in this encounter Results (ABNORMAL) Hemoglobin A1c (09/07/2017 8:41 AM SCHOOL JANITOR) Analysis Performed At [facility] Time Signature Hemoglobin A1C 7.9 (H) 4.3 - 6.0 09/07/2017 [place] % 11:02 AM SCHOOL JANITOR [facility] Specimen Anatomical Collection Method Collection Time Receive d Time (Source) Location / / Volume Laterality Blood specimen 09/07/2017 8:41 AM 018 8:46 (specimen) SCHOOL JANITOR AM SCHOOL JANITOR Andrey Tamez MD LAB - BLOOD ORDERABLES Performing Organization Address City/State/ZIP Code Phon e Number [facility] [address] [place], [place] [address] [address] (ABNORMAL) Lipid panel reflex to direct LDL Fasting (09/07/2017 8:41 AM SCHOOL JANITOR) Analysis Performed At [facility] Signature Cholesterol 167 <200 mg/dL 09/07/2017 [facility] 2:37 PM [facility] Triglycerides 299 (H) <150 mg/dL 09/07/2017 [facility] 2:37 PM [facility] Comment: Borderline high: ??150-199 mg/dl High: ? 200-499 mg/dl Very high: ? >499 mg/dl Fasting specimen HDL Cholesterol 41 >39 mg/dL 09/07/2017 2:37 PM SCHOOL JANITOR [facility] LDL Cholesterol 66 <100 mg/dL 09/07/2017 2:37 PM SCHOOL JANITOR [facility] Comment: Desirable: <100 mg/dl Non HDL Cholesterol 126 <130 mg/dL 09/07/2017 2:37 PM SCHOOL JANITOR [facility] Specimen Anatomical Collection Method Collection Time Receive d Time (Source) Location / / Volume Laterality Blood specimen 09/07/2017 8:41 AM 018 8:46 (specimen) SCHOOL JANITOR AM SCHOOL JANITOR Andrey Tamez MD LAB - BLOOD ORDERABLES Performing Organization Address City/State/ZIP Code Phon e Number [facility] [address] [place] [address] (ABNORMAL) Comprehensive metabolic panel (09/07/2017 8:41 AM SCHOOL JANITOR) Analysis Performed At [facility] Signature Sodium 140 133 - 144 09/07/2017 [place] mmol/L 2:37 PM [facility] Potassium 4.7 3.4 - 5.3 09/07/2017 [place] mmol/L 2:37 PM [facility] Chloride 103 94 - 109 09/07/2017 [place] mmol/L 2:37 PM [facility] Carbon Dioxide 30 20 - 32 09/07/2017 [place] mmol/L 2:37 PM [facility] Anion Gap 7 3 - 14 09/07/2017 [place] mmol/L 2:37 PM [facility] Glucose 176 (H) 70 - 99 09/07/2017 [place] mg/dL 2:37 PM [facility] Comment: Fasting specimen Urea Nitrogen 19 7 - 30 mg/dL 09/07/2017 2:37 PM [facility] Creatinine 1.12 0.66 - 1.25 mg/dL 09/07/2017 2:37 PM CS T [facility] GFR Estimate 64 >60 mL/min/1.7m2 09/07/2017 2:[address] [facility] Comment: Non GFR Calc GFR Estimate If 78 >60 mL/min/1.7m2 09/07/2017 2:37 P M [facility] Black [facility] Comment: GFR Calc Calcium 9.1 8.5 - 10.1 09/07/2017 2:37 PM [facility] mg/dL [facility] Bilirubin Total 0.6 0.2 - 1.3 09/07/2017 2:37 PM [facility] mg/dL [facility] Albumin 3.9 3.4 - 5.0 g/dL 09/07/2017 2:37 PM [facility] Protein Total 6.7 (L) 6.8 - 8.8 g/dL 09/07/2017 2:[address] [facility] Alkaline Phosphatase 77 40 - 150 U/L 09/07/2017 2:37 PM [facility] ALT 26 0 - 70 U/L 09/07/2017 2:37 PM [facility] AST 19 0 - 45 U/L 09/07/2017 2:37 PM [facility] Specimen Anatomical Collection Method Collection Time Receive d Time (Source) Location / / Volume Laterality Blood specimen 09/07/2017 8:41 AM 018 8:46 (specimen) SCHOOL JANITOR AM SCHOOL JANITOR Andrey Tamez MD LAB - BLOOD ORDERABLES Performing Organization Address City/State/ZIP Code Phon e Number [facility] [address] [place] [address] Prostate spec antigen screen (09/07/2017 8:41 AM SCHOOL JANITOR) athologist Signature PSA 2.44 0 - 4 ug/L 09/07/2017 [facility] 2:25 PM [facility] Comment: Assay Method: Chemiluminescence using Siemens Gwinn analyzer Specimen Anatomical Collection Method Collection Time Receive d Time (Source) Location / / Volume Laterality Blood specimen 09/07/2017 8:41 AM 018 8:46 (specimen) SCHOOL JANITOR AM SCHOOL JANITOR Andrey Tamez MD LAB - BLOOD ORDERABLES Performing Organization Address City/State/ZIP Code Phon e Number [facility] [address] [place] [address] [facility] [address] [place] [address], U [phone] CBC with platelets (09/07/2017 8:41 AM SCHOOL JANITOR) P athologist Signature WBC 8.0 4.0 - 11.0 09/07/2017 [facility] 10e9/L 10:57 AM [facility] RBC Count 4.67 4.4 - 5.9 09/07/2017 [facility] 10e12/L 10:57 AM [facility] Hemoglobin 15.2 13.3 - 09/07/2017 [facility] 17.7 g/dL 10:57 AM [facility] Hematocrit 46.5 40.0 - 09/07/2017 [facility] 53.0 % 10:57 AM [facility] MCV 100 78 - 100 09/07/2017 [facility] fl 10:57 AM [facility] MCH 32.5 26.5 - 09/07/2017 [facility] 33.0 pg 10:57 AM [facility] MCHC 32.7 31.5 - 09/07/2017 [facility] 36.5 g/dL 10:57 AM [facility] RDW 12.3 10.0 - 09/07/2017 [facility] 15.0 % 10:57 AM [facility] Platelet Count 197 150 - 450 09/07/2017 [facility] 10e9/L 10:57 AM [facility] Specimen Anatomical Collection Method Collection Time Receive d Time (Source) Location / / Volume Laterality Blood specimen 09/07/2017 8:41 AM 018 8:46 (specimen) SCHOOL JANITOR AM SCHOOL JANITOR Andrey Tamez MD LAB - BLOOD ORDERABLES Performing Organization Address City/State/ZIP Code Phon e Number [facility] [address] [place], [place] [address] [address] documented in this encounter Visit Diagnoses Diagnosis Routine general medical examination at a health care facility - Primary Coronary artery disease involving [place] coronary artery of [place] heart, angina presence unspecified 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
--- OUTSIDE RECORDS SUMMARY | 2022-07-28 08:05 | XMS_ITS | Encounter Summary ---
:1945 Author Organization [place] Address [address] [place] [address] Care Team Providers Name Role Phone Andrey Tamez MD Primary Care Provider Encounter Details Date Type Department Care Team Description 10/24/2020 Immunization [facility] Rosa Hawthorne, Vaccination PA-C [facility] [address] [facility] [address] [place] [address] [place] [address] [phone] Social History Tobacco Use Types Packs/Day Years Used Date Smoking Tobacco: Former Cigarettes 0.5 16 Quit : 09/06/1978 Smokeless Tobacco: Never Alcohol Use Standard Drinks/Week Comments Yes 10 (1 standard drink = 0.6 oz pure alcoh ol) A drink every 1-2 weeks. 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
--- OUTSIDE RECORDS SUMMARY | 2022-07-28 08:05 | XMS_ITS | Encounter Summary ---
:1945 Author Organization [place] Address [address] [place] [address] Care Team Providers Name Role Phone Andrey Tamez MD Primary Care Provider Andrey Tamez MD Unavailable Andrey Tamez MD Unavailable Reason for Visit Reason Comments Medication Refill simvastatin (ZOCOR), ramipri l (ALTACE), metoprolol tartrate (LOPRESSOR), metFORMIN (GLUC OPHAGE) Encounter Details Date Type Department Care Team Description 04/21/2018 [facility] Andrey Tamez MD Medication Refill Clinic [place] [address] (simvastatin (ZOCOR), [address] [place] [address] ramipril (ALTACE), [place] [address] metoprolol tartrate [place], [place] [phone] (Wo rk) (LOPRESSOR), metFORMIN [address] (GLUCOPHAGE) ) [phone] Social History Tobacco Use Types Packs/Day Years Used Date Smoking Tobacco: Former Cigarettes 0.5 16 Quit : 09/06/1978 Smokeless Tobacco: Never Alcohol Use Standard Drinks/Week Comments Yes 10 (1 standard drink = 0.6 oz pure alcoh ol) A drink every 1-2 weeks. 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 Miscellaneous Notes [...] AM CDT SHORT with Andrey Tamez MD [facility] [address] [place] [phone] Sig: TAKE ONE TABLET BY MOUTH AT [...] AM CDT SHORT with Andrey Tamez MD [facility] ([facility]) [address] [facility] [address] Sig: TAKE ONE CAPSULE BY MOUTH TWICE [...] AM CDT SHORT with Andrey Tamez MD [facility] ([facility]) [address] [facility] [address] Sig: TAKE ONE TABLET BY MOUTH ONE [...] AM CDT SHORT with Andrey Tamez MD [facility] ([facility]) [address] [facility] [address] Sig: TAKE ONE TABLET BY MOUTH TWICE [...] AM CDT SHORT with Andrey Tamez MD [facility] ([facility]) [address] [facility] [address] Sig: TAKE ONE TABLET THREE TIMES A [...] and unspecified hyperlipidemia Coronary artery disease involving [place] coronary artery of [place] heart, angina presence unspecified 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
--- OUTSIDE RECORDS SUMMARY | 2022-07-28 08:05 | XMS_ITS | Encounter Summary ---
:1945 Author Organization [place] Address [address] [place] [address] Care Team Providers Name Role Phone Andrey Tamez MD Primary Care Provider Andrey Tamez MD Unavailable Andrey Tamez MD Unavailable Encounter Details Date Type Department Care Team Description 06/18/2017 Orders Only [facility] Typ e 2 diabetes mellitus with other circulatory complication, unspecified mcc insulin use status (H); [facility] Hyperlipidemia LDL goal <[address] [place] [address] Social History Tobacco Use Types Packs/Day Years Used Date Smoking Tobacco: Former Cigarettes 0.5 16 Quit : 09/06/1978 Smokeless Tobacco: Never Alcohol Use Standard Drinks/Week Comments Yes 10 (1 standard drink = 0.6 oz pure alcoh ol) A drink every 1-2 weeks. 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 unspecified mcc insulin use status (H) LIPID REFLEX TO Routine 06/18/2017 10:12 Hyperlipidemia LDL Re sults for this DIRECT LDL PANEL AM CDT goal <100 procedure a re in the results section. HEMOGLOBIN A1C Routine 06/18/2017 10:12 Type 2 diabetes Result s for this AM CDT mellitus with other procedur e are in circulatory the results complication, section. unspecified mcc insulin use status (H) COMPREHENSIVE Routine 06/18/2017 10:12 Hyperlipidemia LDL Resu lts for this METABOLIC PANEL AM CDT goal <100 procedure ar e in the results section. documented in this encounter Results (ABNORMAL) Lipid panel reflex to direct LDL (06/18/2017 10:12 AM CDT) Analysis Performed At Patho logist Time Signature Cholesterol 165 <200 mg/dL 06/19/2017 [place] 12:16 PM CDT [facility] Triglycerides 176 (H) <150 mg/dL 06/19/2017 [place] 12:16 PM CDT [facility] Comment: Borderline high: ??150-199 mg/dl High: ? 200-499 mg/dl Very high: ? >499 mg/dl Fasting specimen HDL Cholesterol 45 >39 mg/dL 06/19/2017 12:16 PM [facility] CDT [facility] LDL Cholesterol 85 <100 mg/dL 06/19/2017 12:16 PM [facility] Calculated CDT [facility] Comment: Desirable: <100 mg/dl Non HDL Cholesterol 120 <130 mg/dL 06/19/2017 12:[address] [facility] Specimen Anatomical Collection Method Collection Time Receive d Time (Source) Location / / Volume Laterality Blood specimen 06/18/2017 10:12 7 (specimen) AM CDT 10:13 AM CDT Andrey Tamez MD LAB - BLOOD ORDERABLES Performing Organization Address City/State/ZIP Code Phon e Number [facility] [address] [place] [address] (ABNORMAL) Comprehensive metabolic panel (06/18/2017 10:12 AM CDT) [facility] Time Signature Sodium 137 133 - 144 06/19/2017 [place] mmol/L 12:16 PM T [facility] Potassium 4.2 3.4 - 5.3 06/19/2017 [place] mmol/L 12:16 PM T [facility] Chloride 103 94 - 109 06/19/2017 [place] mmol/L 12:16 PM T [facility] Carbon Dioxide 27 20 - 32 06/19/2017 [place] mmol/L 12:16 PM T [facility] Anion Gap 7 3 - 14 06/19/2017 [place] mmol/L 12:16 PM T [facility] Glucose 152 (H) 70 - 99 06/19/2017 [place] mg/dL 12:16 PM T [facility] Comment: Fasting specimen Urea Nitrogen 19 7 - 30 mg/dL 06/19/2017 12:16 PM [facility] Creatinine 1.19 0.66 - 1.25 mg/dL 06/19/2017 12:16 PM F [facility] GFR Estimate 60 (L) >60 mL/min/1.7m2 06/19/2017 12:16 PM [facility] Comment: Non GFR Calc GFR Estimate If 73 >60 mL/min/1.7m2 06/19/2017 12:[address] [facility] Black [facility] Comment: GFR Calc Calcium 8.9 8.5 - 10.1 06/19/2017 12:[address] [facility] mg/dL [facility] Bilirubin Total 0.5 0.2 - 1.3 06/19/2017 12:16 PM [facility] mg/dL [facility] Albumin 3.8 3.4 - 5.0 g/dL 06/19/2017 12:16 PM [facility] IEW [facility] Protein Total 6.6 (L) 6.8 - 8.8 g/dL 06/19/2017 12:16 PM [facility] Alkaline Phosphatase 78 40 - 150 U/L 06/19/2017 12:16 PM [facility] ALT 28 0 - 70 U/L 06/19/2017 12:16 PM [facility] AST 13 0 - 45 U/L 06/19/2017 12:16 PM [facility] Specimen Anatomical Collection Method Collection Time Receive d Time (Source) Location / / Volume Laterality Blood specimen 06/18/2017 10:12 7 (specimen) AM CDT 10:13 AM CDT Andrey Tamez MD LAB - BLOOD ORDERABLES Performing Organization Address City/[facility]/ZIP Code Phon e Number [facility] [address], [place] [address] TSH with free T4 reflex (06/18/2017 10:12 AM CDT) P athologist Signature TSH 0.72 0.40 - 4.00 06/19/2017 [facility] mU/L 12:16 PM CDT [facility] Specimen Anatomical Collection Method Collection Time Receive d Time (Source) Location / / Volume Laterality Blood specimen 06/18/2017 10:12 7 (specimen) AM CDT 10:13 AM CDT Andrey Tamez MD LAB - BLOOD ORDERABLES Performing Organization Address City/[facility]/ZIP Code Phon e Number [facility] [address] [address] (ABNORMAL) Hemoglobin A1c (06/18/2017 10:12 AM CDT) Analysis Performed At Patho logist Time Signature Hemoglobin A1C 7.4 (H) 4.3 - 6.0 06/18/2017 [facility] 1:04 PM CDT [facility] Specimen Anatomical Collection Method Collection Time Receive d Time (Source) Location / / Volume Laterality Blood specimen 06/18/2017 10:12 7 (specimen) AM CDT 10:13 AM CDT Andrey Tamez MD LAB - BLOOD ORDERABLES Performing Organization Address City/[facility]/ZIP Code Phon e Number [facility] [address] [facility] [place] [address] [address] documented in this encounter Visit Diagnoses Diagnosis 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, unspecified mcc insulin use status Hyperlipidemia LDL goal <100 Other and unspecified hyperlipidemia documented in this encounter Care Teams Athletic Instructor Relationship Specialty Start Date End Date Andrey Tamez MD PCP - General 03/26/09 Andrey Tamez MD PCP - Assigned PCP 09/11/12 11/08/18 [address] [place] [address] Andrey Tamez MD Assigned PCP 09/11/12 09/07/20 [address] [place] [address] documented as of this encounter
--- OUTSIDE RECORDS SUMMARY | 2022-07-28 08:05 | XMS_ITS | Encounter Summary ---
:1945 Author Organization [facility] Address [address] [place] [address] Care Team Providers Name Role Phone Andrey Tamez MD Primary Care Provider Andrey Tamez MD Unavailable Andrey Tamez MD Unavailable Reason for Visit Reason Onset Date Comments Patient Request 06/17/2017 Med Refill Encounter Details Date Type Department Care Team Description 06/17/2017 [facility] Andrey Tamez MD Patient Request ([facility] [place] [address] Refill ) [address] [place] [address] [place], [place] [phone] (Wo rk) [address] [phone] Social History Tobacco Use Types Packs/Day Years Used Date Smoking Tobacco: Former Cigarettes 0.5 16 Quit : 09/06/1978 Smokeless Tobacco: Never Alcohol Use Standard Drinks/Week Comments Yes 10 (1 standard drink = 0.6 oz pure alcoh ol) A drink every 1-2 weeks. 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 He hasn't been seen for [...] Visit Diagnoses Diagnosis Coronary artery disease involving [place] coronary artery of [place] heart, angina presence unspecified Hyperlipidemia LDL goal <100 Other and unspecified hyperlipidemia documented in this encounter Care Teams Cloth Tester Quality Relationship Specialty Start Date End Date Andrey Tamez MD PCP - General 03/26/09 Andrey Tamez MD PCP - Assigned PCP 09/11/12 11/08/[address] [place] [address] Andrey Tamez MD Assigned PCP 09/11/12 09/07/[address] [place] [address] documented as of this encounter
--- OUTSIDE RECORDS SUMMARY | 2022-07-28 08:05 | XMS_ITS | Encounter Summary ---
:1945 Author Organization [facility] Address [address] [place] [address] Care Team Providers Name Role Phone Andrey Tamez MD Primary Care Provider Andrey Tamez MD Unavailable Andrey Tamez MD Unavailable Reason for Visit Reason Onset Date Comments Refill Request 10/05/2016 metformin Encounter Details Date Type Department Care Team Description 10/05/2016 Refill [facility] Andrey Tamez MD Refill Request Clinic [place] [address] [facility] (metformin) [address] [place] [address] [place], [place] [phone] (Wo rk) [address] [phone] Social History Tobacco Use Types Packs/Day Years Used Date Smoking Tobacco: Former Cigarettes 0.5 16 Quit : 09/06/1978 Smokeless Tobacco: Never Alcohol Use Standard Drinks/Week Comments Yes 10 (1 standard drink = 0.6 oz pure alcoh ol) A drink every 1-2 weeks. 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 Just had labs done today (currently pending) but is out of metformin. Metformin and Accu chek gonzales plus test strips Last Written Prescription Date: 02-07-16 Last Fill Quantity: 360, # refills: 1 Last Office Visit with [facility] or [facility] prescribing provider: 02-07-16 BP Readings from [...] due to: due for f/u diab OV. 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
--- OUTSIDE RECORDS SUMMARY | 2022-07-28 08:05 | XMS_ITS | Encounter Summary ---
:1945 Author Organization [place] Address [address] [place] [address] Care Team Providers Name Role Phone Andrey Tamez MD Primary Care Provider Encounter Details Date Type Department Care Team Description 10/03/2020 [facility] [address] [place] [address] Social History Tobacco Use Types Packs/Day [...] on filedocumented in this encounter Care Teams Industrial Economist Relationship Specialty Start Date End Date Andrey Tamez MD PCP - General 03/26/09 documented as of this encounter
--- OUTSIDE RECORDS SUMMARY | 2022-07-28 08:05 | XMS_ITS | Encounter Summary ---
:1945 Author Organization [facility] Address [address] [place] [address] Care Team Providers Name Role Phone Andrey Tamez MD Primary Care Provider Andrey Tamez MD Unavailable Andrey Tamez MD Unavailable Encounter Details Date Type Department Care Team Description 04/28/[address] [facility] Typ e 2 diabetes mellitus with other circulatory complication, without long-term current use of insulin (H); [facility] Hyperlipidemia LDL goal <[address] [place] [address] Social History Tobacco Use Types Packs/Day Years Used Date Smoking Tobacco: Former Cigarettes 0.5 16 Quit : 09/06/1978 Smokeless Tobacco: Never Alcohol Use Standard Drinks/Week Comments Yes 10 (1 standard drink = 0.6 oz pure alcoh ol) A drink every 1-2 weeks. 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 Albumin Urine 13 mg/L 04/28/2018 [place] mg/L 3:[address] [facility] Albumin Urine 15.64 0 - 17 04/28/2018 [place] mg/g Cr mg/g Cr 3:[address] [facility] Specimen Anatomical Collection Method Collection Time Receive d Time (Source) Location / / Volume Laterality Urine specimen 04/28/2018 8:15 AM 018 8:20 (specimen) CDT AM CDT Andrey Tamez MD LAB - URINE ORDERABLES Performing Organization Address City/State/ZIP Code Phon e Number [facility] [address] [place] [address] (ABNORMAL) Lipid panel reflex to direct LDL Fasting (04/28/2018 8:14 AM CDT) Analysis Performed At Patho logist Time Signature Cholesterol 133 <200 mg/dL 04/28/2018 [place] 2:[address] [facility] Triglycerides 191 (H) <150 mg/dL 04/28/2018 [place] 2:[address] [facility] Comment: Borderline high: ??150-199 mg/dl High: ? 200-499 mg/dl Very high: ? >499 mg/dl Fasting specimen HDL Cholesterol 36 (L) >39 mg/dL 04/28/2018 2:06 PM [facility] LDL Cholesterol 59 <100 mg/dL 04/28/2018 2:06 PM [facility] Calculated CDT [facility] Comment: Desirable: <100 mg/dl Non HDL Cholesterol 97 <130 mg/dL 04/28/2018 2:06 PM CDT [facility] Specimen Anatomical Collection Method Collection Time Receive d Time (Source) Location / / Volume Laterality Blood specimen 04/28/2018 8:14 AM 018 8:19 (specimen) CDT AM CDT Andrey Tamez MD LAB - BLOOD ORDERABLES Performing Organization Address City/State/ZIP Code Phon e Number [facility] [address] [place] [address] (ABNORMAL) Comprehensive metabolic panel (04/28/2018 8:14 AM CDT) Analysis Performed At Patho logist Time Signature Sodium 139 133 - 144 04/28/2018 [place] mmol/L 2:[address] [facility] Potassium 4.5 3.4 - 5.3 04/28/2018 [place] mmol/L 2:[address] [facility] Chloride 103 94 - 109 04/28/2018 [place] mmol/L 2:[address] [facility] Carbon Dioxide 27 20 - 32 04/28/2018 [place] mmol/L 2:[address] [facility] Anion Gap 9 3 - 14 04/28/2018 [place] mmol/L 2:[address] [facility] Glucose 140 (H) 70 - 99 04/28/2018 [place] mg/dL 2:[address] [facility] Comment: Fasting specimen Urea Nitrogen 17 7 - 30 mg/dL 04/28/2018 2:06 PM CDT [facility] Creatinine 1.18 0.66 - 1.25 mg/dL 04/28/2018 2:06 PM CD T [facility] GFR Estimate 61 >60 mL/min/1.7m2 04/28/2018 2:06 PM C DT [facility] Comment: Non GFR Calc GFR Estimate If 73 >60 mL/min/1.7m2 04/28/2018 2:06 P M [facility] Black CDT [facility] Comment: GFR Calc Calcium 9.0 8.5 - 10.1 04/28/2018 2:06 PM [place] [facility] mg/dL T [facility] Bilirubin Total 0.5 0.2 - 1.3 04/28/2018 2:06 PM [facility] IEW [facility] mg/dL CDT [facility] Albumin 3.7 3.4 - 5.0 g/dL 04/28/2018 2:06 PM [facility] CDT [facility] Protein Total 6.7 (L) 6.8 - 8.8 g/dL 04/28/2018 2:06 PM [facility] Alkaline Phosphatase 72 40 - 150 U/L 04/28/2018 2:06 PM [facility] ALT 21 0 - 70 U/L 04/28/2018 2:06 PM [facility] AST 16 0 - 45 U/L 04/28/2018 2:06 PM [facility] T [facility] Specimen Anatomical Collection Method Collection Time Receive d Time (Source) Location / / Volume Laterality Blood specimen 04/28/2018 8:14 AM 018 8:19 (specimen) CDT AM CDT Andrey Tamez MD LAB - BLOOD ORDERABLES Performing Organization Address City/State/ZIP Code Phon e Number [facility] [address] [place] [address] (ABNORMAL) Hemoglobin A1c (04/28/2018 8:14 AM CDT) Analysis Performed At Patho logist Time Signature Hemoglobin A1C 7.3 (H) 0 - 5.6 % 04/28/2018 [place] 8:54 AM CDT [facility] Comment: Normal <5.7% Prediabetes 5.7-6.4% ??Diab etes 6.5% or higher - adopted from ADA consensus guidelines. Specimen Anatomical Collection Method Collection Time Receive d Time (Source) Location / / Volume Laterality Blood specimen 04/28/2018 8:14 AM 018 8:19 (specimen) CDT AM CDT Andrey Tamez MD LAB - BLOOD ORDERABLES Performing Organization Address City/State/ZIP Code Phon e Number [facility] [address] [place], [place] [address] [address] documented in this encounter Visit Diagnoses Diagnosis 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, without long-term current use of insulin (H) Hyperlipidemia LDL goal <100 Other and unspecified hyperlipidemia documented in this encounter Care Teams Tin Can Laborer Relationship Specialty Start Date End Date Andrey Tamez MD PCP - General 03/26/09 Andrey Tamez MD PCP - Assigned PCP 09/11/12 11/08/18 [address] [place], [place] [address] Andrey Tamez MD Assigned PCP 09/11/12 09/07/20 [address] [place] [address] documented as of this encounter
--- OUTSIDE RECORDS SUMMARY | 2022-07-28 08:05 | XMS_ITS | Encounter Summary ---
:1945 Author Organization [place] Address [address] [place] [address] Care Team Providers Name Role Phone Andrey Tamez MD Primary Care Provider Andrey Tamez MD Unavailable Andrey Tamez MD Unavailable Reason for Visit Reason Comments Lipids Hypertension Diabetes Encounter Details Date Type Department Care Team Description 07/07/2017 Office Visit [facility] Andrey Tamez, Type 2 diabetes mellitus with other circulatory complication, without long-term current use of insulin (H) (Primary Dx); [facility] Coronary artery disease involving [place] coronary artery of [place] heart, angina presence unspecified; [address] [place] [address] Hyperlipidemi a LDL goal <100; [address] Essential hypertension with goal blood p ressure less than 140/90 [place] [address] [phone] Social History Tobacco Use Types Packs/Day Years Used Date Smoking Tobacco: Former Cigarettes 0.5 16 Quit : 09/06/1978 Smokeless Tobacco: Never Alcohol Use Standard Drinks/Week Comments Yes 10 (1 standard drink = 0.6 oz pure alcoh ol) A drink every 1-2 weeks. 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 The creation of this document is based on the provider's statements to the medical detailist. Vicky Cantu July 07, 2017 11:17 AM [...] MG tablet (I25.10) Coronary artery disease involving [place] coronary artery of [place] heart, angina presence unspecified Comment: Stable. No [...] in this document, created by the medical detailist for me, accurately reflects the services I personally performed and the decisions made by me. I have reviewed and approved this document for accuracy prior to leaving the patient care area. July 07, 2017 11:17 AM Andrey Tamez MD [facility] documented in this encounter Nursing Notes Kaylahvania [...] oz (79.1 kg). Medication Reconciliation: complete Chivo MOTOR BLOCK MECHANIC documented in this encounter Plan of Treatment Not on filedocumented as of this encounter Visit Diagnoses Diagnosis 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, without long-term current use of insulin (H) - Primary Coronary artery disease involving [place] coronary artery of [place] heart, angina presence unspecified Hyperlipidemia LDL goal <100 Other and unspecified hyperlipidemia Essential hypertension with goal blood p ressure less than 140/90 documented in this encounter Care Teams Truck Driver Helper Relationship Specialty Start Date End Date Andrey Tamez MD PCP - General 03/26/09 Andrey Tamez MD PCP - Assigned PCP 09/11/12 11/08/[address] [place] [address] Andrey Tamez MD Assigned PCP 09/11/12 09/07/[address] [place] [address] documented as of this encounter
--- OUTSIDE RECORDS SUMMARY | 2022-07-28 08:06 | XMS_ITS | Encounter Summary ---
:1945 Author Organization [facility] Address [address] [place] [address] Care Team Providers Name Role Phone Andrey Tamez MD Primary Care Provider Andrey Tamez MD Unavailable Andrey Tamez MD Unavailable Reason for Visit Reason Comments Health Coaching - Research Face #5 Encounter Details Date Type Department Care Team Description 11/08/2013 Allied Health/Nurse Health [facility] Coaching - Visit [facility] (Face #5) [address] [place] [phone] Social History Tobacco Use Types Packs/Day Years Used Date Smoking Tobacco: Former Cigarettes 0.5 16 Quit : 09/06/1978 Smokeless Tobacco: Never Alcohol Use Standard Drinks/Week Comments Yes 10 (1 standard drink = 0.6 oz pure alcoh ol) A drink every 1-2 weeks. 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 as of this encounter Patient Instructions Patient InstructionsLeslee Godoy - 11/08/2013 11:04 AM CST November 08, 2013 [facility] [address] [facility] [address] [phone] Health Coaching Progress Note Patient Name: Rodolfo Quevedo Date: November 08, 2013 Plan: (Homework, other): Patient was encouraged to continue using [employer] to seek condition-related information and education, as well as schedule a follow up appointment with the [facility] Light Cleaner in 3 weeks Patient has set self-identified [...] 4-5x a week 5) Go back into [employer] and do a lesson 1x a day = 7 lessons a week Leslee Godoy [facility] 11/08/2013 11:42 AM ACE CHARGER documented in this encounter Progress Notes Leslee Godoy - 11/08/2013 12:03 PM CST November 08, [address] [address] Health Coaching Progress Note Patient Name: Rodolfo [...] other): Patient was encouraged to continue using [employer] to seek condition-related information and education, as well as schedule a follow up appointment with the [facility] Light Cleaner in 3 weeks Patient has set self-identified [...] 7 lessons a week Leslee Godoy [facility]er 11/08/2013 12:07 PM ACE CHARGER documented in this encounter Plan of Treatment Not on filedocumented as of this encounter Visit Diagnoses Diagnosis Type 2 diabetes, HbA1C goal < 8% (H) - P rimary Type II or unspecified type diabetes vijaya litus without mention of complication, not stated as uncontrolled documented in this encounter Care Teams Housing Installer Relationship Specialty Start Date End Date Andrey Tamez MD PCP - General 03/26/09 Andrey Tamez MD PCP - Assigned PCP 09/11/12 11/08/18 [address] [place], [place] [address] Andrey Tamez MD Assigned PCP 09/11/12 09/07/20 [address] [place], [place] [address] documented as of this encounter
--- OUTSIDE RECORDS SUMMARY | 2022-07-28 08:06 | XMS_ITS | Encounter Summary ---
:1945 Author Organization [place] Address [address] [place] [address] Care Team Providers Name Role Phone Andrey Tamez MD Primary Care Provider Andrey Tamez MD Unavailable Andrey Tamez MD Unavailable Reason for Visit Reason Onset Date Comments Medication Request 08/27/2014 new glucose monitor and supplies Encounter Details Date Type Department Care Team Description 08/27/2014 Telephone [facility] Andrey Tamez MD Medication Request Clinic [place] [address] (new glucose monitor [address] and supplies) [place] [address] [place], [place] [phone] (Wo rk) [address] [phone] Social History Tobacco Use Types Packs/Day Years Used Date Smoking Tobacco: Former Cigarettes 0.5 16 Quit : 09/06/1978 Smokeless Tobacco: Never Alcohol Use Standard Drinks/Week Comments Yes 10 (1 standard drink = 0.6 oz pure alcoh ol) A drink every 1-2 weeks. 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 L SETTER Telephone Encounter - Steph Walsh, RN - 08/27/2014 9:24 AM CST Received request from [facility] stating pt is asking for a new meter and testing supplies for BID testing. Previous orders were for once daily testing. DME order pending for meter and testing supplies. Will send to MD to review for frequency of testing. L SETTER documented in this encounter Plan of Treatment Not on filedocumented as of this encounter Visit Diagnoses Diagnosis Type 2 diabetes, HbA1C goal < 8% (H) - P rimary Type II or unspecified type diabetes vijaya litus without mention of complication, not stated as uncontrolled documented in this encounter Care Teams Pipe Out Worker Relationship Specialty Start Date End Date Andrey Tamez MD PCP - General 03/26/09 Andrey Tamez MD PCP - Assigned PCP 09/11/12 11/08/18 [address] [place] [address] Andrey Tamez MD Assigned PCP 09/11/12 09/07/20 [address] [place] [address] documented as of this encounter
--- OUTSIDE RECORDS SUMMARY | 2022-07-28 08:06 | XMS_ITS | Encounter Summary ---
:1945 Author Organization [place] Address [address] [place] [address] Care Team Providers Name Role Phone Andrey Tamez MD Primary Care Provider Andrey Tamez MD Unavailable Andrey Tamez MD Unavailable Reason for Visit Reason Comments Diabetes MEL 10/19/2012: Labs complet ed Recheck Medication Encounter Details Date Type Department Care Team Description 01/31/2014 Office Visit [facility] Andrey Tamez, Type 2 diabetes, HbA1C goal < 8% (H) (Primary Dx); Clinic [place] [facility] Hyperlipidemia LDL goal <100; [address] Unspecified e ssential hypertension; [address] CAD (coronary artery disease) [place] [address] [phone] Social History Tobacco Use Types Packs/Day Years Used Date Smoking Tobacco: Former Cigarettes 0.5 16 Quit : 09/06/1978 Smokeless Tobacco: Never Alcohol Use Standard Drinks/Week Comments Yes 10 (1 standard drink = 0.6 oz pure alcoh ol) A drink every 1-2 weeks. 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 Andrey Tamez MD, [facility] documented in this encounter Nursing Notes Mick [...] Coronary atherosclerosis of unspecified type of vessel, [place] or graft documented in this encounter Care Teams Filter Pulp Washer Relationship Specialty Start Date End Date Andrey Tamez MD PCP - General 03/26/09 Andrey Tamez MD PCP - Assigned PCP 09/11/12 11/08/18 [address] [address] Andrey Tamez MD Assigned PCP 09/11/12 09/07/20 [address] [place] [address] documented as of this encounter
--- OUTSIDE RECORDS SUMMARY | 2022-07-28 08:06 | XMS_ITS | Encounter Summary ---
:1945 Author Organization [place] Address [address] [place] [address] Care Team Providers Name Role Phone Andrey Tamez MD Primary Care Provider Andrey Tamez MD Unavailable Andrey Tamez MD Unavailable Reason for Visit Reason Comments Flu Shot Encounter Details Date Type Department Care Team Description 07/08/2013 Allied Health/Nurse [facility] Nicho Alonso Flu Shot Visit [facility] Marvin MD [facility] [place] [address] Social History Tobacco Use Types Packs/Day Years Used Date Smoking Tobacco: Former Cigarettes 0.5 16 Quit : 09/06/1978 Smokeless Tobacco: Never Alcohol Use Standard Drinks/Week Comments Yes 10 (1 standard drink = 0.6 oz pure alcoh ol) A drink every 1-2 weeks. 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 No Form completed by Rodolfo Quevedo Form reviewed by Belkis Chaves.Ph. [facility] [phone] documented in this encounter Plan of Treatment Not on filedocumented as of this encounter Visit Diagnoses Diagnosis Need for prophylactic vaccination and in oculation against influenza - Primary documented in this encounter Care Teams Wedding Makeup Artist Relationship Specialty Start Date End Date Andrey Tamez MD PCP - General 03/26/09 Andrey Tamez MD PCP - Assigned PCP 09/11/12 11/08/18 [address] [place] [address] Andrey Tamez MD Assigned PCP 09/11/12 09/07/20 [address] [place] [address] documented as of this encounter
--- OUTSIDE RECORDS SUMMARY | 2022-07-28 08:06 | XMS_ITS | Encounter Summary ---
:1945 Author Organization [place] Address [address] [place] [address] Care Team Providers Name Role Phone Andrey Tamez MD Primary Care Provider Andrey Tamez MD Unavailable Andrey Tamez MD Unavailable Reason for Visit Reason Comments Health Coaching - Research Face #2 Encounter Details Date Type Department Care Team Description 07/19/2013 Allied Health/Nurse Health [facility] Coaching - Visit [facility] (Face #2) [address] [place] [phone] Social History Tobacco Use Types Packs/Day Years Used Date Smoking Tobacco: Former Cigarettes 0.5 16 Quit : 09/06/1978 Smokeless Tobacco: Never Alcohol Use Standard Drinks/Week Comments Yes 10 (1 standard drink = 0.6 oz pure alcoh ol) A drink every 1-2 weeks. 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 documented as of this encounter Patient Instructions Patient InstructionsLeslee Godoy - 07/19/2013 10:44 AM CST July 19, 2013 [facility] [address] [facility] [address] [phone] Health Coaching Progress Note Patient Name: Rodolfo Quevedo Date: July 19, 2013 Plan: (Homework, other): Patient was encouraged to continue using [facility] to seek condition-related information and education, as well as schedule a follow up appointment with the Health Marquetry Worker in 4 weeks Patient has set self-identified [...] sizes at each meal 5) Go into [facility] 1x a week for education * Overall vision to lose 5 lbs. In regards to other areas can gain blood for testing contact Physician, Business Services Sales Agent or Diabetes Nurse Line [phone] Leslee oGdoy Health Marquetry Worker 07/19/2013 11:29 AM /DISPATCHER documented in this encounter Progress Notes Leslee Godoy - 07/19/2013 11:46 AM CST July 19, 2013 [place] [address] [address] [facility] [address] [phone] Health Coaching Progress Note Patient Name: Rodolfo [...] portions creating eating schedule Intervention: Motivational Interviewing [place] Intervention: Expressed Empathy/Understanding, Supported Autonomy, Collaboration, Evocation, [...] other): Patient was encouraged to continue using [facility] to seek condition-related information and education, as well as schedule a follow up appointment with the Health Marquetry Worker in 4 weeks Patient has set self-identified [...] sizes at each meal 5) Go into [facility] 1x a week for education * Overall vision to lose 5 lbs. In regards to other areas can gain blood for testing contact Physician, Business Services Sales Agent or Diabetes Nurse Line [phone] Leslee Godoy Health Marquetry Worker 07/19/2013 11:48 AM /DISPATCHER documented in this encounter Plan of Treatment Not on filedocumented as of this encounter Visit Diagnoses Diagnosis Type 2 diabetes, HbA1C goal < 8% (H) - P rimary Type II or unspecified type diabetes vijaya litus without mention of complication, not stated as uncontrolled documented in this encounter Care Teams Mapping Engineer Relationship Specialty Start Date End Date Andrey Tamez MD PCP - General 03/26/09 Andrey Tamez MD PCP - Assigned PCP 09/11/12 11/08/18 [address] [address] Andrey Tamez MD Assigned PCP 09/11/12 09/07/20 [address] [facility] 160 [place], [place] [address] documented as of this encounter
--- OUTSIDE RECORDS SUMMARY | 2022-07-28 08:06 | XMS_ITS | Encounter Summary ---
:1945 Author Organization [place] Address [address] [place] [address] Care Team Providers Name Role Phone Andrey Tamez MD Primary Care Provider Andrey Tamez MD Unavailable Andrey Tamez MD Unavailable Reason for Visit Reason Onset Date Comments Refill Request 01/24/2014 multiple meds Encounter Details Date Type Department Care Team Description 01/24/2014 Refill [facility] Andrey Tamez MD Refill Request Clinic [place] [address] [facility] (multiple meds) [address] [place] [address] [place], [place] [phone] (Wo rk) [address] [phone] Social History Tobacco Use Types Packs/Day Years Used Date Smoking Tobacco: Former Cigarettes 0.5 16 Quit : 09/06/1978 Smokeless Tobacco: Never Alcohol Use Standard Drinks/Week Comments Yes 10 (1 standard drink = 0.6 oz pure alcoh ol) A drink every 1-2 weeks. 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
--- OUTSIDE RECORDS SUMMARY | 2022-07-28 08:06 | XMS_ITS | Encounter Summary ---
:1945 Author Organization [place] Address [address] [place] [address] Care Team Providers Name Role Phone Andrey [...] DM testing supplies(he gets his Rx's at [facility], but he has to go to [facility] for his test strips). Encounter Details Date Type Department Care Team Description 02/07/2015 Office Visit [facility] Andrey Tamez, Type 2 diabetes, HbA1C goal < 8% (H) (Primary Dx); Clinic [facility] Unspecified essential hypertension; [address] Coronary malcolm ry disease due to lipid rich plaque; [address] Hyperlipidemia LDL goal <100; [place], [place], [place] Advanced di rectives, counseling/discussion [phone] Social History Tobacco Use Types Packs/Day Years Used Date Smoking Tobacco: Former Cigarettes 0.5 16 Quit : 09/06/1978 Smokeless Tobacco: Never Alcohol Use Standard Drinks/Week Comments Yes 10 (1 standard drink = 0.6 oz pure alcoh ol) A drink every 1-2 weeks. 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 Andrey Tamez MD, [facility] documented in this encounter Nursing Notes Katherin [...] DM testing supplies(he gets his Rx's at [facility], but he has to go to [facility] for his test strips). Initial BP 140/74 [...] counseling documented in this encounter Care Teams Wood Preparation Supervisor Relationship Specialty Start Date End Date Andrey Tamez MD PCP - General 03/26/09 Andrey Tamez MD PCP - Assigned PCP 09/11/12 11/08/18 [address] [place] [address] Andrey Tamez MD Assigned PCP 09/11/12 09/07/20 [address] [place], [place] [address] documented as of this encounter
--- OUTSIDE RECORDS SUMMARY | 2022-07-28 08:06 | XMS_ITS | Encounter Summary ---
:1945 Author Organization [place] Address [address] [place] [address] Care Team Providers Name Role Phone Andrey Tamez MD Primary Care Provider Andrey Tmaez MD Unavailable Andrey Tamez MD Unavailable Encounter Details Date Type Department Care Team Description 01/24/2015 Orders Only [facility] Cor onary artery disease due to lipid rich plaque; [facility] Unspecified essential hypert ension; [address] Type 2 diabetes, HbA1C goal < 8% (H); [place], [place] Hyperlipidemi a LDL goal <100 [phone] Social History Tobacco Use Types Packs/Day Years Used Date Smoking Tobacco: Former Cigarettes 0.5 16 Quit : 09/06/1978 Smokeless Tobacco: Never Alcohol Use Standard Drinks/Week Comments Yes 10 (1 standard drink = 0.6 oz pure alcoh ol) A drink every 1-2 weeks. 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 Plan [...] CDT) P athologist Signature Creatinine 75 mg/dL [place] Urine [facility] Albumin Urine 7 mg/L [place] mg/L [facility] Albumin Urine 9.50 0 - 17 [place] mg/g Cr mg/g Cr [facility] Specimen Anatomical Collection Method Collection Time Receive d Time (Source) Location / / Volume Laterality Urine specimen 01/24/2015 8:28 AM 015 8:33 (specimen) CDT AM CDT Andrey Tamez MD LAB - URINE ORDERABLES Performing Organization Address City/State/ZIP Code Phon e Number [facility] [address] [address] [phone] [facility] [address] [place] [address], [facility] [phone] (ABNORMAL) Hemoglobin A1c (01/24/2015 8:27 AM CDT) Analysis Performed At Patho logist Time Signature Hemoglobin A1C 7.3 (H) 4.3 - 6.0 [facility] Comment: Reviewed: OK with previous Specimen Anatomical Collection Method Collection Time Receive d Time (Source) Location / / Volume Laterality Blood specimen 01/24/2015 8:27 AM 015 8:32 (specimen) CDT AM CDT Andrey Tamez MD LAB - BLOOD ORDERABLES Performing Organization Address City/State/ZIP Code Phon e Number [facility] [address] [place], [place] [address] [address] (ABNORMAL) Lipid Profile with reflex to direct LDL (01/24/2015 8:27 AM CDT) P athologist Signature Cholesterol 135 <200 mg/dL [facility] Comment: LDL Cholesterol is the primary guide to therapy. The NCEP recommends further evaluation of: patients with cholesterol greater than 200 mg/dL if additional risk facto rs are present, cholesterol greater than 240 mg/dL, triglycerides greater than 1 50 mg/dL, or HDL less than 40 mg/dL. Triglycerides 216 (H) 0 - 150 mg/dL [place] CLI [facility]ICS [facility] HDL Cholesterol 35 (L) >40 mg/dL [place] CLINI CS [facility] LDL Cholesterol Calculated 57 0 - 129 mg/dL [facility] Comment: LDL Cholesterol is the primary guide to therapy: LDL-cholesterol goal in high risk patients is <100 mg/dL and in very high risk patients is <70 mg/dL. VLDL-Cholesterol 43 (H) 0 - 30 mg/dL [place] C [facility] Cholesterol/HDL Ratio 3.9 0.0 - 5.0 [facility] Specimen Anatomical Collection Method Collection Time Receive d Time (Source) Location / / Volume Laterality Blood specimen 01/24/2015 8:27 AM 015 8:32 (specimen) CDT AM CDT Andrey Tamez MD LAB - BLOOD ORDERABLES Performing Organization Address City/State/ZIP Code Phon e Number [facility] [address] [place] [address] (ABNORMAL) Comprehensive metabolic panel (BMP + Alb, Alk Phos, ALT, AST, Total. Bili, TP) (01/24/2015 8:27 AM CDT) Patholo gist Method Time Signature Sodium 138 133 - 144 [place] mmol/L [facility] Potassium 4.2 3.4 - 5.3 [place] mmol/L [facility] Chloride 105 94 - 109 [place] mmol/L [facility] Carbon Dioxide 27 20 - 32 [place] mmol/L [facility] Anion Gap 6 3 - 14 [place] mmol/L [facility] Glucose 159 (H) 70 - 99 [place] mg/dL [facility] Urea Nitrogen 19 7 - 30 [place] mg/dL [facility] Creatinine 0.98 0.66 - [place] 1.25 mg/dL [facility] GFR Estimate 75 >60 [place] mL/min/1.[address] [facility] Comment: Non GFR Calc GFR Estimate If Black >90 >60 mL/min/1.7m2 F [facility] GFR Calc [facility] Calcium 8.8 8.5 - 10.1 mg/dL [place] CLIN ICS [facility] Bilirubin Total 0.4 0.2 - 1.3 mg/dL [facility] Albumin 3.7 3.4 - 5.0 g/dL [facility] S [facility] Protein Total 6.2 (L) 6.8 - 8.8 g/dL [place] CL INICS [facility] Alkaline Phosphatase 96 40 - 150 U/L [facility] ALT 26 0 - 70 U/L [facility] AST 12 0 - 45 U/L [facility] Specimen Anatomical Collection Method Collection Time Receive d Time (Source) Location / / Volume Laterality Blood specimen 01/24/2015 8:27 AM 015 8:32 (specimen) CDT AM CDT Andrey Tamez MD LAB - BLOOD ORDERABLES Performing Organization Address City/State/ZIP Code Phon e Number [facility] [address] [place] [address] (ABNORMAL) CBC with platelets (01/24/2015 8:27 AM CDT) athologist Signature WBC 6.8 4.0 - 11.0 [place] 10e9/L [facility] RBC Count 4.26 (L) 4.4 - 5.9 [place] 10e12/L [facility] Comment: Reviewed: OK with previous Hemoglobin 14.2 13.3 - 17.7 g/dL [place] [facility] Hematocrit 42.7 40.0 - 53.0 % [facility] MCV 100 78 - 100 fl [facility] MCH 33.3 (H) 26.5 - 33.0 pg [facility] Comment: Reviewed: OK with previous MCHC 33.3 31.5 - 36.5 g/dL [place] CLIN ICS [place] RDW 11.9 10.0 - 15.0 % [facility] Platelet Count 185 150 - 450 10e9/L [facility] Specimen Anatomical Collection Method Collection Time Receive d Time (Source) Location / / Volume Laterality Blood specimen 01/24/2015 8:27 AM 015 8:32 (specimen) CDT AM CDT Andrey Tamez MD LAB - BLOOD ORDERABLES Performing Organization Address City/State/ZIP Code Phon e Number [facility] [address] [place], [place] [address] [address] documented in this encounter Visit Diagnoses Diagnosis Coronary artery disease due to lipid serene h plaque Unspecified essential hypertension Type 2 diabetes, HbA1C goal < 8% (H) Type II or unspecified type diabetes vijaya litus without mention of complication, not stated as uncontrolled Hyperlipidemia LDL goal <100 Other and unspecified hyperlipidemia documented in this encounter Care Teams Patient Transition Specialist Relationship Specialty Start Date End Date Andrey Tamez MD PCP - General 03/26/09 Andrey Tamez MD PCP - Assigned PCP 09/11/12 11/08/[address] [place] [address] Andrey Tamez MD Assigned PCP 09/11/12 09/07/[address] [place] [address] documented as of this encounter
--- OUTSIDE RECORDS SUMMARY | 2022-07-28 08:06 | XMS_ITS | Encounter Summary ---
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 HEMOGLOBIN A1C Routine 10/01/2015 8:19 Type 2 diabetes Results for this AM WAREHOUSE SHIPPING SUPERVISOR mellitus with other procedur e are in circulatory the results complications (H) section. COMPREHENSIVE Routine 10/01/2015 8:19 Type 2 diabetes, Results for this METABOLIC PANEL AM WAREHOUSE SHIPPING SUPERVISOR HbA1C goal < 8% (H) proce myrae are in the results section. documented in this encounter Results (ABNORMAL) Lipid panel reflex to direct LDL (10/01/2015 8:19 AM WAREHOUSE SHIPPING SUPERVISOR) Analysis Performed At [facility] Time Signature Cholesterol 140 <200 mg/dL [facility] Triglycerides 215 (H) <150 mg/dL [facility] Comment: Borderline high: ??150-199 mg/dl High: ? 200-499 mg/dl Very high: ? >499 mg/dl HDL Cholesterol 41 >39 mg/dL [facility] [facility] LDL Cholesterol Calculated 56 <100 mg/dL FA [facility] Comment: Desirable: <100 mg/dl Non HDL Cholesterol 99 <130 mg/dL [facility] Specimen Anatomical Collection Method Collection Time Receive d Time (Source) Location / / Volume Laterality Blood specimen 10/01/2015 8:19 AM 016 8:24 (specimen) WAREHOUSE SHIPPING SUPERVISOR AM WAREHOUSE SHIPPING SUPERVISOR Andrey Tamez MD LAB - BLOOD ORDERABLES Performing Organization Address City/State/ZIP Code Phon e Number [facility] [address] [place] [address] (ABNORMAL) Comprehensive metabolic panel (10/01/2015 8:19 AM WAREHOUSE SHIPPING SUPERVISOR) [facility] gist [facility] Time Signature Sodium 140 133 - 144 [place] mmol/L [facility] Potassium 4.1 3.4 - 5.3 [place] mmol/L [facility] Chloride 105 94 - 109 [place] mmol/L [facility] Carbon Dioxide 26 20 - 32 [place] mmol/L [facility] Anion Gap 9 3 - 14 [place] mmol/L [facility] Glucose 144 (H) 70 - 99 [facility] mg/dL [facility] Urea Nitrogen 18 7 - 30 [place] mg/dL [facility] Creatinine 0.99 0.66 - [place] 1.25 mg/dL [facility] GFR Estimate 75 >60 [place] mL/min/1.7 [facility] m2 [facility] Comment: Non GFR Calc GFR Estimate If Black >90 >60 mL/min/1.7m2 F [facility] GFR Calc [facility] Calcium 8.2 (L) 8.5 - 10.1 mg/dL [facility] Bilirubin Total 0.4 0.2 - 1.3 mg/dL [facility] Albumin 3.6 3.4 - 5.0 g/dL [facility] Protein Total 6.2 (L) 6.8 - 8.8 g/dL [facility] [facility] Alkaline Phosphatase 82 40 - 150 U/L [facility] EW [facility] ALT 25 0 - 70 U/L [facility] AST 13 0 - 45 U/L [facility] Specimen Anatomical Collection Method Collection Time Receive d Time (Source) Location / / Volume Laterality Blood specimen 10/01/2015 8:19 AM 016 8:24 (specimen) WAREHOUSE SHIPPING SUPERVISOR AM WAREHOUSE SHIPPING SUPERVISOR Andrey Tamez MD LAB - BLOOD ORDERABLES Performing Organization Address City/State/ZIP Code Phon e Number [facility] [address] [place] [address] (ABNORMAL) Hemoglobin A1c (10/01/2015 8:19 AM WAREHOUSE SHIPPING SUPERVISOR) Analysis Performed At Patho logist Time Signature Hemoglobin A1C 7.0 (H) 4.3 - 6.0 [facility] Comment: Reviewed: OK with previous Specimen Anatomical Collection Method Collection Time Receive d Time (Source) Location / / Volume Laterality Blood specimen 10/01/2015 8:19 AM 016 8:24 (specimen) WAREHOUSE SHIPPING SUPERVISOR AM WAREHOUSE SHIPPING SUPERVISOR Andrey Tamez MD LAB - BLOOD ORDERABLES Performing Organization Address City/State/ZIP Code Phon e Number [facility] [address] [place], [place] [address] [address] documented in this encounter Visit Diagnoses Diagnosis 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
--- OUTSIDE RECORDS SUMMARY | 2022-07-28 08:06 | XMS_ITS | Encounter Summary ---
:1945 Author Organization [place] Address [address] [place] [address] Care Team Providers Name Role Phone Andrey Tamez MD Primary Care Provider Andrey Tamez MD Unavailable Andrey Tamez MD Unavailable Reason for Visit Reason Comments Health Coaching - Research Face #3 Encounter Details Date Type Department Care Team Description 09/13/2013 Allied Health/Nurse Health [facility] Coaching - Visit [facility] (Face #3) [address] [place] [phone] Social History Tobacco Use Types Packs/Day Years Used Date Smoking Tobacco: Former Cigarettes 0.5 16 Quit : 09/06/1978 Smokeless Tobacco: Never Alcohol Use Standard Drinks/Week Comments Yes 10 (1 standard drink = 0.6 oz pure alcoh ol) A drink every 1-2 weeks. 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 documented as of this encounter Patient Instructions Patient InstructionsLeslee Godoy - 09/13/2013 11:02 AM CST September 13, 2013 [facility] [address] [facility] [address] [phone] Health Coaching Progress Note Patient Name: Rodolfo Quevedo Date: September 13, 2013 Plan: (Homework, other): Patient was encouraged to continue using [employer] to seek condition-related information and education, as well as schedule a follow up appointment with the Health Nascar Driver in 4 weeks Patient has set self-identified goals and will monitor progress until the next appointment. GOALS: Patient will work on the following goals until our next meeting October 04 - : 1) Make a list of meals for breakfast, lunch and dinner combinations that would be appropriate for managing diabetes (work on today) 2) Follow meal plan until next session 3) Review Carb Counting Guide/Understanding Diabetes Education materials provided as resources 4) Check fasting blood sugar 3x a week and post meal blood sugars 3x a week at various times 5) When a snack attack arises drink water instead Leslee Godoy Health Nascar Driver 09/13/2013 11:56 AM RECORDER documented in this encounter Progress Notes Leslee Godoy - 09/13/2013 2:47 PM CST September 13, 2013 [place] [address] [facility][1] [address] [phone] Health Coaching Progress Note Patient Name: Rodolfo Quevedo Date: September 13, 2013 Session Length: 35 DATA PRM Master Survey Scores Reviewed: No PROMIS Total Score: Core Healthy Days Survey: AFRCIA Score (Last Two) 06/21/2013 [place] Raw Score 37 Activation Score 49.9 [place] Level 2 PHQ-2 Score: Treatment Objective(s) Addressed in This Session: Target Behavior(s): diet/weight loss and disease management/lifestyle changes educate and find resources for meal ideas Current Stressors / Issues: Knowing what to eat. Intervention: Motivational Interviewing [place] Intervention: Expressed Empathy/Understanding, Supported Autonomy, Collaboration, Evocation, Permission to raise concern or advise, Open-ended questions, Reflections: simple and complex and Change talk (evoked) Change Talk Expressed [...] reinforcing change plan / affirming steps taken Stable - ACTION (Actively working towards change); Intervened by reinforcing change plan / affirmingsteps taken HC Goal Categories GOAL: Self-management Support: 0% (when snack attack arises drink water instead) Plan: (Homework, other): Patient was encouraged to continue using [employer] to seek condition-related information and education, as well as schedule a follow up appointment with the Health Nascar Driver in 3 weeks Patient has set self-identified goals and will monitor progress until the next appointment. GOALS: Patient will work on the following goals until our next meeting October 04 - : 1) Make a list of meals for breakfast, lunch and dinner combinations that would be appropriate for managing diabetes (work on today) 2) Follow meal plan until next session 3) Review Carb Counting Guide/Understanding Diabetes Education materials provided as resources 4) Check fasting blood sugar 3x a week and post meal blood sugars 3x a week at various times 5) When a snack attack arises drink water instead Leslee Godoy Health Nascar Driver 09/13/2013 2:49 PM RECORDER documented in this encounter Plan of Treatment Not on filedocumented as of this encounter Visit Diagnoses Diagnosis Type 2 diabetes, HbA1C goal < 8% (H) - P rimary Type II or unspecified type diabetes vijaya litus without mention of complication, not stated as uncontrolled documented in this encounter Care Teams Cabin Equipment Supervisor Relationship Specialty Start Date End Date Andrey Tamez MD PCP - General 03/26/09 Andrey Tamez MD PCP - Assigned PCP 09/11/12 11/08/18 [address] [place] [address] Andrey Tamez MD Assigned PCP 09/11/12 09/07/20 [address] [place] [address] documented as of this encounter
--- OUTSIDE RECORDS SUMMARY | 2022-07-28 08:06 | XMS_ITS | Encounter Summary ---
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 COMPREHENSIVE Routine 10/05/2016 9:00 Essential hypertension R esults for this METABOLIC PANEL AM ANIMAL SCIENCE PROFESSOR with goal blood procedure are in pressure less than the resul ts 140/90 section. HEMOGLOBIN A1C Routine 10/05/2016 8:55 Type 2 diabetes Results for this AM ANIMAL SCIENCE PROFESSOR mellitus with other procedur e are in circulatory the results complications (H) section. documented in this encounter Results (ABNORMAL) Lipid Profile (10/05/2016 9:00 AM ANIMAL SCIENCE PROFESSOR) Analysis Performed At [facility] Signature Cholesterol 146 <200 mg/dL [facility] Triglycerides 186 (H) <150 mg/dL [facility] Comment: Borderline high: ??150-199 mg/dl High: ? 200-499 mg/dl Very high: ? >499 mg/dl Fasting specimen HDL Cholesterol 33 (L) >39 mg/dL [facility] [facility] LDL Cholesterol Calculated 76 <100 mg/dL FA [facility] Comment: Desirable: <100 mg/dl Non HDL Cholesterol 113 <130 mg/dL [facility] Specimen Anatomical Collection Method Collection Time Receive d Time (Source) Location / / Volume Laterality Blood specimen 10/05/2016 9:00 AM 017 9:12 (specimen) ANIMAL SCIENCE PROFESSOR AM ANIMAL SCIENCE PROFESSOR Andrey Tamez MD LAB - BLOOD ORDERABLES Performing Organization Address City/State/ZIP Code Phon e Number [facility] [address] [place] [address] (ABNORMAL) Comprehensive metabolic panel (10/05/2016 9:00 AM ANIMAL SCIENCE PROFESSOR) Analysis Performed At [facility] Signature Sodium 139 133 - 144 [place] mmol/L [facility] Potassium 4.9 3.4 - 5.3 [place] mmol/L [facility] Chloride 103 94 - 109 [place] mmol/L [facility] Carbon Dioxide 29 20 - 32 [place] mmol/L [facility] Anion Gap 7 3 - 14 [place] mmol/L [facility] Glucose 203 (H) 70 - 99 [place] mg/dL [facility] Comment: Fasting specimen Urea Nitrogen 18 7 - 30 mg/dL [place] [facility] Creatinine 1.14 0.66 - 1.25 mg/dL [place] [facility] GFR Estimate 63 >60 mL/min/1.7m2 [place] [facility] Comment: Non GFR Calc GFR Estimate If Black 77 >60 mL/min/1.7m2 F [facility] Comment: GFR Calc Calcium 9.1 8.5 - 10.1 mg/dL [place] [facility] Bilirubin Total 0.5 0.2 - 1.3 mg/dL [facility] Albumin 3.7 3.4 - 5.0 g/dL [facility] S [facility] Protein Total 7.0 6.8 - 8.8 g/dL [place] [facility] [place] [place] Alkaline Phosphatase 92 40 - 150 U/L [facility] ALT 25 0 - 70 U/L [facility] AST 15 0 - 45 U/L [facility] Specimen Anatomical Collection Method Collection Time Receive d Time (Source) Location / / Volume Laterality Blood specimen 10/05/2016 9:00 AM 017 9:12 (specimen) ANIMAL SCIENCE PROFESSOR AM ANIMAL SCIENCE PROFESSOR Andrey Tamez MD LAB - BLOOD ORDERABLES Performing Organization Address City/State/ZIP Code Phon e Number [facility] [address] [place] [address] (ABNORMAL) Hemoglobin A1c (10/05/2016 8:55 AM ANIMAL SCIENCE PROFESSOR) Analysis Performed At Patho logist Time Signature Hemoglobin A1C 7.7 (H) 4.3 - 6.0 [facility] Specimen Anatomical Collection Method Collection Time Receive d Time (Source) Location / / Volume Laterality Blood specimen 10/05/2016 8:55 AM 017 9:00 (specimen) ANIMAL SCIENCE PROFESSOR AM ANIMAL SCIENCE PROFESSOR Andrey Tamez MD LAB - BLOOD ORDERABLES Performing Organization Address City/State/ZIP Code Phon e Number [facility] [address] [place], [place] [address] [address] documented in this encounter Visit Diagnoses Diagnosis Essential hypertension with goal blood p ressure less than 140/90 - Primary 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
--- OUTSIDE RECORDS SUMMARY | 2022-07-28 08:06 | XMS_ITS | Encounter Summary ---
:1945 Author Organization [place] Address [address] [place] [address] Care Team Providers Name Role Phone Andrey Tamez MD Primary Care Provider Andrey Tamez MD Unavailable Andrey Tamez MD Unavailable Reason for Visit Reason Comments Health Coaching - Research Face #6 Encounter Details Date Type Department Care Team Description 11/29/2013 Allied Health/Nurse Health [facility] Coaching - Visit [facility] (Face #6) [address] [place] [phone] Social History Tobacco Use Types Packs/Day Years Used Date Smoking Tobacco: Former Cigarettes 0.5 16 Quit : 09/06/1978 Smokeless Tobacco: Never Alcohol Use Standard Drinks/Week Comments Yes 10 (1 standard drink = 0.6 oz pure alcoh ol) A drink every 1-2 weeks. 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 Patient has been encouraged to continue to use [employer] website as it is available to them fora short time, as well as sent an Study Exit Letter and asked to complete the surveys on the website/email when prompted to do so. Leslee Godoy Health Research Professor 11/29/2013 3:41 PM documented in this encounter Plan of Treatment Not on filedocumented as of this encounter Visit Diagnoses Diagnosis Type 2 diabetes, HbA1C goal < 8% (H) - P rimary Type II or unspecified type diabetes vijaya litus without mention of complication, not stated as uncontrolled documented in this encounter Care Teams Supervisor Computer Operations Relationship Specialty Start Date End Date Andrey Tamez MD PCP - General 03/26/09 Andrey Tamez MD PCP - Assigned PCP 09/11/12 11/08/18 [address] [place] [address] Andrey Tamez MD Assigned PCP 09/11/12 09/07/20 [address] [place] [address] documented as of this encounter
--- OUTSIDE RECORDS SUMMARY | 2022-07-28 08:06 | XMS_ITS | Encounter Summary ---
:1945 Author Organization [place] Address [address] [place] [address] Care Team Providers Name Role Phone Andrey Tamez MD Primary Care Provider Andrey Tamez MD Unavailable Andrey Tamez MD Unavailable Reason for Visit Reason Onset Date Comments Orders 01/10/2014 labs Encounter Details Date Type Department Care Team Description 01/10/2014 Telephone [facility] Andrey Tamez MD Orders (labs) [place] [address] [facility] [address] [place] [address] [facility] [place] [address] [phone] Social History Tobacco Use Types Packs/Day Years Used Date Smoking Tobacco: Former Cigarettes 0.5 16 Quit : 09/06/1978 Smokeless Tobacco: Never Alcohol Use Standard Drinks/Week Comments Yes 10 (1 standard drink = 0.6 oz pure alcoh ol) A drink every 1-2 weeks. 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 I'll place orders for routine diabetes labs. Telephone Encounter - Steph Walsh RN - 01/10/2014 1:26 PM CDT Pt calls, states he made appt through [facility] for labs tomorrow and received a message [...] Coronary atherosclerosis of unspecified type of vessel, [place] or graft documented in this encounter Care Teams Counseling Services Director Relationship Specialty Start Date End Date Andrey Tamez MD PCP - General 03/26/09 Andrey Tamez MD PCP - Assigned PCP 09/11/12 11/08/18 [address] [place] [address] Andrey Tamez MD Assigned PCP 09/11/12 09/07/20 [address] [place] [address] documented as of this encounter
--- OUTSIDE RECORDS SUMMARY | 2022-07-28 08:06 | XMS_ITS | Encounter Summary ---
:1945 Author Organization [place] Address [address] [place] [address] Care Team Providers Name Role Phone Andrey Tamez MD Primary Care Provider Andrey Tamez MD Unavailable Andrey Tamez MD Unavailable Encounter Details Date Type Department Care Team Description 06/24/2015 Orders Only [facility] Andrey Tamez, Type 2 diabetes [facility] mellitus with other [address] [place] [address] circulatory [facility] 160 complications (H) [place], [place] (Primary Dx ) [id number] [phone] Social History Tobacco Use Types Packs/Day Years Used Date Smoking Tobacco: Former Cigarettes 0.5 16 Quit : 09/06/1978 Smokeless Tobacco: Never Alcohol Use Standard Drinks/Week Comments Yes 10 (1 standard drink = 0.6 oz pure alcoh ol) A drink every 1-2 weeks. 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
--- OUTSIDE RECORDS SUMMARY | 2022-07-28 08:06 | XMS_ITS | Encounter Summary ---
:1945 Author Organization [facility] Address [address] [place] [address] Care Team Providers Name Role Phone Andrey Tamez MD Primary Care Provider Andrey Tamez MD Unavailable Andrey Tamez MD Unavailable Reason for Visit Reason Onset Date Comments Refill Request 10/15/2015 multiple meds Encounter Details Date Type Department Care Team Description 10/15/2015 Refill [facility] Andrey Tamez MD Refill Request Clinic [place] [address] [facility] (multiple meds) [address] [place] [address] [place], [place] [phone] (Wo rk) [address] [phone] Social History Tobacco Use Types Packs/Day Years Used Date Smoking Tobacco: Former Cigarettes 0.5 16 Quit : 09/06/1978 Smokeless Tobacco: Never Alcohol Use Standard Drinks/Week Comments Yes 10 (1 standard drink = 0.6 oz pure alcoh ol) A drink every 1-2 weeks. 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 I don't see anything scheduled. Chai Baker, RN CELL TESTER Telephone Encounter - Andrey Tamez MD - 10/18/2015 11:56 AM CST Needs to schedule fasting lab only appointment and office visit a few days later. Please advise pt. CELL TESTER Telephone Encounter - Dayna Molina RN - 10/16/2015 4:23 PM CST Routing refill request to provider for review/approval because: Labs out of range: CELL TESTER Telephone Encounter - Aditi Yeager - 10/15/2015 11:09 AM CST Metformin 500 Last Written Prescription Date: 02/07/15 Last Fill Quantity: 270, # refills: 1 Last Office Visit with [facility] [place] care provider: 02/07/15 MICROL 7 01/24/2015 [...] # refills: 1 Last Office Visit with [facility] primary care provider: 02/07/15 Future Office Visit: BP Readings from Last 3 Encounters: 02/07/15 124/70 01/31/14 138/74 10/19/12 122/82 Simvastatin 40 Last Written Prescription Date: 02/07/15 Last Fill Quantity: 90, # refills: 1 Last Office Visit with [facility] primary care provider: 02/07/15 CHOL 140 10/01/2015 [...] # refills: 1 Last Office Visit with [facility] primary care provider: 02/07/15 Future Office Visit: [...] # refills: 1 Last Office Visit with [facility] primary care provider: 02/07/15 POTASSIUM Date Value Ref Range Status 10/01/2015 4.1 3.4 - 5.3 mmol/L Final CREATININE Date Value Ref Range Status 10/01/2015 0.99 0.66 - 1.25 mg/dL Final BP Readings from Last 3 Encounters: 02/07/15 124/70 01/31/14 138/74 10/19/12 122/82 CELL TESTER documented in this encounter Plan of Treatment Not on filedocumented as of this encounter Visit Diagnoses Diagnosis Type 2 diabetes, HbA1C goal < 8% (H) - P rimary Type II or unspecified type diabetes vijaya litus without mention of complication, not stated as uncontrolled Hyperlipidemia LDL goal <100 Other and unspecified hyperlipidemia Coronary artery disease involving ely shoshone coronary artery of ely shoshone heart, angina presence unspecified Essential hypertension Unspecified essential hypertension documented in this encounter Care Teams Quality Worker Relationship Specialty Start Date End Date Andrey Tamez MD PCP - General 03/26/09 Andrey Tamez MD PCP - Assigned PCP 09/11/12 11/08/18 [address] [place] [address] Andrey Tamez MD Assigned PCP 09/11/12 09/07/20 [address] [place] [address] documented as of this encounter
--- OUTSIDE RECORDS SUMMARY | 2022-07-28 08:06 | XMS_ITS | Encounter Summary ---
:1945 Author Organization [facility] Address [address] [place] [address] Care Team Providers Name Role Phone Andrey Tamez MD Primary Care Provider Andrey Tamez MD Unavailable Andrey Tamez MD Unavailable Reason for Visit Reason Comments Health Coaching - Research Face #4 Encounter Details Date Type Department Care Team Description 10/04/2013 Allied Health/Nurse Health [facility] Coaching - Visit [facility] (Face #4) [address] [place] [phone] Social History Tobacco Use Types Packs/Day Years Used Date Smoking Tobacco: Former Cigarettes 0.5 16 Quit : 09/06/1978 Smokeless Tobacco: Never Alcohol Use Standard Drinks/Week Comments Yes 10 (1 standard drink = 0.6 oz pure alcoh ol) A drink every 1-2 weeks. 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 documented as of this encounter Patient Instructions Patient InstructionsLeslee Godoy - 10/04/2013 11:03 AM CST October 04, 2013 [facility] [place] [address] [facility] [address] [phone] Health Coaching Progress Note Patient Name: Rodolfo Quevedo Date: October 04, 2013 Plan: (Homework, other): Patient was encouraged to continue using [facility] to seek condition-related information and education, as well as schedule a follow up appointment with the Health Spectroscopist in 4 weeks Patient has set self-identified [...] options or water daily Leslee Godoy Health Spectroscopist 10/04/2013 11:31 AM R TEAM LEADER documented in this encounter Progress Notes Leslee Godoy - 10/04/2013 12:16 PM CST October 04, 2013 [place] [address] [address] [facility] [address] [phone] Health Coaching Progress Note Patient Name: Rodolfo [...] / Issues: None discussed Intervention: Motivational Interviewing [place] Intervention: Expressed Empathy/Understanding, Supported Autonomy, Collaboration, Evocation, [...] other): Patient was encouraged to continue using [facility] to seek condition-related information and education, as well as schedule a follow up appointment with the Health Spectroscopist in 4 weeks Patient has set self-identified [...] options or water daily Leslee Godoy Health Spectroscopist 10/04/2013 12:17 PM R TEAM LEADER documented in this encounter Plan of Treatment Not on filedocumented as of this encounter Visit Diagnoses Diagnosis Type 2 diabetes, HbA1C goal < 8% (H) - P rimary Type II or unspecified type diabetes vijaya litus without mention of complication, not stated as uncontrolled documented in this encounter Care Teams Electric Motor Tester Assembler Relationship Specialty Start Date End Date Andrey Tamez MD PCP - General 03/26/09 Andrey Tamez MD PCP - Assigned PCP 09/11/12 11/08/[address] [place] [address] Andrey Tamez MD Assigned PCP 09/11/12 09/07/20 [address] [place] [address] documented as of this encounter
--- OUTSIDE RECORDS SUMMARY | 2022-07-28 08:06 | XMS_ITS | Encounter Summary ---
:1945 Author Organization [place] Address [address] [place] [address] Care Team Providers Name Role Phone Andrey Tamez MD Primary Care Provider Andrey Tamez MD Unavailable Andrey Tamez MD Unavailable Reason for Visit Reason Onset Date Comments Refill Request 06/28/2014 SImvastatin Metformi n Encounter Details Date Type Department Care Team Description 06/28/2014 Refill [facility] Andrey Tamez MD Refill Request Clinic [place] [address] [facility] (SImvastatin Metformin) [address] [place] [address] [place], [place] [phone] (Wo rk) [address] [phone] Social History Tobacco Use Types Packs/Day Years Used Date Smoking Tobacco: Former Cigarettes 0.5 16 Quit : 09/06/1978 Smokeless Tobacco: Never Alcohol Use Standard Drinks/Week Comments Yes 10 (1 standard drink = 0.6 oz pure alcoh ol) A drink every 1-2 weeks. 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 encounter Miscellaneous Notes [...] 06/28/2014 6:14 PM CDT Refill request from [facility] [facility] for: SImvastatin05/01/14 Metformin 05/01/14 Last O/V: 01/31/14 Last Refill: see above documented in this encounter Plan of Treatment Not on filedocumented as of this encounter Visit Diagnoses Diagnosis CAD (coronary artery disease) Coronary atherosclerosis of unspecified type of vessel, morongo or graft Type 2 diabetes, HbA1C goal < 8% (H) Type II or unspecified type diabetes vijaya litus without mention of complication, not stated as uncontrolled documented in this encounter Care Teams Service Advocate Contact Relationship Specialty Start Date End Date Andrey Tamez MD PCP - General 03/26/09 Andrey Tamez MD PCP - Assigned PCP 09/11/12 11/08/18 [address] [facility] [address] [place] [address] Andrey Tamez MD Assigned PCP 09/11/12 09/07/20 [address] [facility] [address] [place] [address] documented as of this encounter
--- OUTSIDE RECORDS SUMMARY | 2022-07-28 08:06 | XMS_ITS | Encounter Summary ---
:1945 Author Organization [facility] Address [address] [place] [address] Care Team Providers Name Role Phone Andrey Tamez MD Primary Care Provider Andrey Tamez MD Unavailable Andrey Tamez MD Unavailable Reason for Visit Reason Onset Date Comments Refill Request 10/29/2014 Simvastatin,Metformi n Encounter Details Date Type Department Care Team Description 10/29/2014 Refill [facility] Andrey Tamez MD Refill Request Clinic [place] [address] [facility] (Simvastatin,Metformin) [address] [place] [place] [address] [place], [place] [phone] (Wo rk) [address] [phone] Social History Tobacco Use Types Packs/Day Years Used Date Smoking Tobacco: Former Cigarettes 0.5 16 Quit : 09/06/1978 Smokeless Tobacco: Never Alcohol Use Standard Drinks/Week Comments Yes 10 (1 standard drink = 0.6 oz pure alcoh ol) A drink every 1-2 weeks. 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 documented as of this encounter Miscellaneous Notes Telephone Encounter - Krista Kaufman RN - 10/30/2014 9:31 AM CST Last OV 01-31-14 Recent Labs Lab Test 05/01/14 0853 01/11/14 0817 CHOL 170 172 HDL 45 33* LDL 87 102 TRIG 188* 182* CHOLHDLRATIO 3.8 5.1* ALT 21 05/01/2014 AST 12 05/01/2014 Creatinine Date Value Ref Range Status 05/01/2014 1.03 0.66 - 1.25 mg/dL Final MICROL 6 01/11/2014 MICROALBUMIN 6.00 01/11/2014 BP Readings from Last 3 Encounters: 01/31/14 138/74 10/19/12 122/82 10/26/11 151/81 A1C 6.5 05/01/2014 A1C 7.7 01/11/2014 A1C 7.1 06/29/2013 A1C 7.2 10/11/2012 A1C 7.7 03/23/2012 Simvastatin refilled per SO. Pt is over-due for diab check. Will refill Metformin x 1 after appt scheduled. Pt informed and transferred to schedule. Med refilled x 1. SUPPORT SPECIALIST Telephone Encounter - Aditi Yeager - 10/29/2014 3:55 PM CST Refill request from [facility] for: Simvastatin 40MG Metformin 500MG Last O/V: 01/31/14 Last Refill: 06/30/14 both SUPPORT SPECIALIST documented in this encounter Plan of Treatment Not on filedocumented as of this encounter Visit Diagnoses Diagnosis Type 2 diabetes, HbA1C goal < 8% (H) - P rimary Type II or unspecified type diabetes vijaya litus without mention of complication, not stated as uncontrolled CAD (coronary artery disease) Coronary atherosclerosis of unspecified type of vessel, galena or graft documented in this encounter Care Teams Quick Mixer Operator Relationship Specialty Start Date End Date Andrey Tamez MD PCP - General 03/26/09 Andrey Tamez MD PCP - Assigned PCP 09/11/12 11/08/18 [address] [facility] 160 [place] [address] Andrey Tamez MD Assigned PCP 09/11/12 09/07/20 [address] [facility] 160 [place], [place] [id number] documented as of this encounter
--- OUTSIDE RECORDS SUMMARY | 2022-07-28 08:06 | XMS_ITS | Encounter Summary ---
:1945 Author Organization [place] Address [address] [place] [address] Care Team Providers Name Role Phone Andrey Tamez MD Primary Care Provider Andrey Tamez MD Unavailable Andrey Tamez MD Unavailable Encounter Details Date Type Department Care Team Description 06/29/2013 Orders Only [facility] Typ e 2 diabetes, HbA1C [facility] goal < 8% (H) [address] [place] [address] Social History Tobacco Use Types Packs/Day Years Used Date Smoking Tobacco: Former Cigarettes 0.5 16 Quit : 09/06/1978 Smokeless Tobacco: Never Alcohol Use Standard Drinks/Week Comments Yes 10 (1 standard drink = 0.6 oz pure alcoh ol) A drink every 1-2 weeks. 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 The NCEP recommends further evaluation of: patients with cholesterol greater than 200 mg/dL if additional risk facto rs are present, cholesterol greater than 240 mg/dL, triglycerides greater than 1 50 mg/dL, or HDL less than 40 mg/dL. Triglycerides 156 (H) 0 - 150 mg/dL [place] [facility] HDL Cholesterol 38 (L) 40 - 110 mg/dL [facility] LDL Cholesterol Calculated 78 0 - 129 mg/dL [facility] Comment: LDL Cholesterol is the primary guide to therapy: LDL-cholesterol goal in high risk patients is <100 mg/dL and in very high risk patients is <70 mg/dL. VLDL-Cholesterol 31 (H) 0 - 30 mg/dL [facility] Cholesterol/HDL Ratio 3.8 0.0 - 5.0 [facility] Specimen Anatomical Collection Method Collection Time Receive d Time (Source) Location / / Volume Laterality Blood specimen 06/29/2013 9:07 AM 013 9:12 (specimen) CDT AM CDT Andrey Tamez MD LAB - BLOOD ORDERABLES Performing Organization Address City/[facility]/ZIP Code Phon e Number [address] [address] (ABNORMAL) Hemoglobin A1c (06/29/2013 9:07 AM CDT) Analysis Performed At Patho logist Time Signature Hemoglobin A1C 7.1 (H) 4.3 - 6.0 [facility] Specimen Anatomical Collection Method Collection Time Receive d Time (Source) Location / / Volume Laterality Blood specimen 06/29/2013 9:07 AM 013 9:12 (specimen) CDT AM CDT Andrey Tamez MD LAB - BLOOD ORDERABLES Performing Organization Address City/[facility] Phon e Number [facility] [address] [place], [place] [address] [address] (ABNORMAL) Comprehensive metabolic panel (06/29/2013 9:07 AM CDT) P athologist Signature Sodium 134 133 - 144 [place] mmol/L [facility] Potassium 4.5 3.4 - 5.3 [place] mmol/L [facility] Chloride 100 94 - 109 [place] mmol/L [facility] Carbon Dioxide 25 20 - 32 [place] mmol/L [facility] Anion Gap 10 6 - 17 [place] mmol/L [facility] Glucose 152 (H) 60 - 99 [place] mg/dL [facility] Comment: Fasting specimen Urea Nitrogen 25 7 - 30 mg/dL [place] [facility] Creatinine 1.13 0.66 - 1.25 mg/dL [place] [facility] GFR Estimate 65 >60 mL/min/1.7m2 [place] [facility] GFR Estimate If Black 78 >60 mL/min/1.7m2 [facility] Calcium 9.1 8.5 - 10.4 mg/dL [place] [facility] Bilirubin Total 0.5 0.2 - 1.3 mg/dL [facility] Albumin 3.9 3.3 - 4.9 g/dL [place] [facility] Comment: Reference range changed on 05/08. Protein Total 6.6 (L) 6.8 - 8.8 g/dL [place] [facility] Comment: As of 08, reference range reflects plasma specimen type. Alkaline Phosphatase 80 40 - 150 U/L [facility] ALT 37 0 - 70 U/L [facility] [place] AST 21 0 - 45 U/L [facility] Specimen Anatomical Collection Method Collection Time Receive d Time (Source) Location / / Volume Laterality Blood specimen 06/29/2013 9:07 AM 013 9:12 (specimen) CDT AM CDT Andrey Tamez MD LAB - BLOOD ORDERABLES Performing Organization Address City/State/ZIP Code Phon e Number [facility] [address] LabsWray [place] [address] documented in this encounter Visit Diagnoses Diagnosis Type 2 diabetes, HbA1C goal < 8% (H) Type II or unspecified type diabetes vijaya litus without mention of complication, not stated as uncontrolled documented in this encounter Care Teams Shopper Insights Manager Relationship Specialty Start Date End Date Andrey Tamez MD PCP - General 03/26/09 Andrey Tamez MD PCP - Assigned PCP 09/11/12 11/08/18 [address] [place], [place] [address] Andrey Tamez MD Assigned PCP 09/11/12 09/07/20 [address] [place], [place] [address] documented as of this encounter
--- OUTSIDE RECORDS SUMMARY | 2022-07-28 08:06 | XMS_ITS | Encounter Summary ---
:1945 Author Organization [place] Address [address] [place] [address] Care Team Providers Name Role Phone Andrey Tamez MD Primary Care Provider Andrey Tamez MD Unavailable nAdrey Tamez MD Unavailable Reason for Visit Reason Onset Date Comments Refill Request 01/15/2015 multiple medications Orders 01/15/2015 labs Encounter Details Date Type Department Care Team Description 01/15/2015 Refill [facility] Andrey Tamez MD Refill Request Clinic [place] [address] (multiple medications); [address] [place] [address] Orders (labs) [place] [address] [place], [place] [phone] (Wo rk) [address] [phone] Social History Tobacco Use Types Packs/Day Years Used Date Smoking Tobacco: Former Cigarettes 0.5 16 Quit : 09/06/1978 Smokeless Tobacco: Never Alcohol Use Standard Drinks/Week Comments Yes 10 (1 standard drink = 0.6 oz pure alcoh ol) A drink every 1-2 weeks. 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 Miscellaneous [...] CDT) P athologist Signature Creatinine 75 mg/dL [place] Urine [facility] Albumin Urine 7 mg/L [place] mg/L [facility] Albumin Urine 9.50 0 - 17 [place] mg/g Cr mg/g Cr [facility] Specimen Anatomical Collection Method Collection Time Receive d Time (Source) Location / / Volume Laterality Urine specimen 01/24/2015 8:28 AM 015 8:33 (specimen) CDT AM CDT Andrey Tamez MD LAB - URINE ORDERABLES Performing Organization Address City/State/ZIP Code Phon e Number [facility] [address] [place] [address] [phone] [facility] [address] [place] [address], [facility] [phone] (ABNORMAL) Hemoglobin A1c (01/24/2015 8:27 AM CDT) Analysis Performed At Patho logist Time Signature Hemoglobin A1C 7.3 (H) 4.3 - 6.0 [facility] Comment: Reviewed: OK with previous Specimen Anatomical Collection Method Collection Time Receive d Time (Source) Location / / Volume Laterality Blood specimen 01/24/2015 8:27 AM 015 8:32 (specimen) CDT AM CDT Andrey Tamez MD LAB - BLOOD ORDERABLES Performing Organization Address City/State/ZIP Code Phon e Number [facility] [address] [place], [place] [address] [address] (ABNORMAL) Lipid Profile with reflex to direct LDL (01/24/2015 8:27 AM CDT) P athologist Signature Cholesterol 135 <200 mg/dL [facility] Comment: LDL Cholesterol is the primary guide to therapy. The NCEP recommends further evaluation of: patients with cholesterol greater than 200 mg/dL if additional risk facto rs are present, cholesterol greater than 240 mg/dL, triglycerides greater than 1 50 mg/dL, or HDL less than 40 mg/dL. Triglycerides 216 (H) 0 - 150 mg/dL [place] CLI NICS [facility] HDL Cholesterol 35 (L) >40 mg/dL [place] CLINI CS [facility] LDL Cholesterol Calculated 57 0 - 129 mg/dL [facility] Comment: LDL Cholesterol is the primary guide to therapy: LDL-cholesterol goal in high risk patients is <100 mg/dL and in very high risk patients is <70 mg/dL. VLDL-Cholesterol 43 (H) 0 - 30 mg/dL [place] C LINICS [facility] Cholesterol/HDL Ratio 3.9 0.0 - 5.0 [facility] Specimen Anatomical Collection Method Collection Time Receive d Time (Source) Location / / Volume Laterality Blood specimen 01/24/2015 8:27 AM 015 8:32 (specimen) CDT AM CDT Andrey Tamez MD LAB - BLOOD ORDERABLES Performing Organization Address City/State/ZIP Code Phon e Number [facility] [address] [place] [address] (ABNORMAL) Comprehensive metabolic panel (BMP + Alb, Alk Phos, ALT, AST, Total. Bili, TP) (01/24/2015 8:27 AM CDT) Patholo gist Method Time Signature Sodium 138 133 - 144 [place] mmol/L [facility] Potassium 4.2 3.4 - 5.3 [place] mmol/L [facility] Chloride 105 94 - 109 [place] mmol/L [facility] Carbon Dioxide 27 20 - 32 [place] mmol/L [facility] Anion Gap 6 3 - 14 [place] mmol/L [facility] Glucose 159 (H) 70 - 99 [place] mg/dL [facility] Urea Nitrogen 19 7 - 30 [place] mg/dL [facility] Creatinine 0.98 0.66 - [place] 1.25 mg/dL [facility] GFR Estimate 75 >60 [place] mL/min/1.7 CLINICS m2 [facility] Comment: Non GFR Calc GFR Estimate If Black >90 >60 mL/min/1.7m2 F [facility] GFR Calc [facility] Calcium 8.8 8.5 - 10.1 mg/dL [place] CLIN ICS [facility] Bilirubin Total 0.4 0.2 - 1.3 mg/dL [facility] Albumin 3.7 3.4 - 5.0 g/dL [facility] Protein Total 6.2 (L) 6.8 - 8.8 g/dL [place] CL INICS [facility] Alkaline Phosphatase 96 40 - 150 U/L [facility] ALT 26 0 - 70 U/L [facility] AST 12 0 - 45 U/L [facility] Specimen Anatomical Collection Method Collection Time Receive d Time (Source) Location / / Volume Laterality Blood specimen 01/24/2015 8:27 AM 015 8:32 (specimen) CDT AM CDT Andrey Tamez MD LAB - BLOOD ORDERABLES Performing Organization Address City/State/ZIP Code Phon e Number [facility] [address] [place] [address] (ABNORMAL) CBC with platelets (01/24/2015 8:27 AM CDT) P athologist Signature WBC 6.8 4.0 - 11.0 [place] 10e9/L [facility] RBC Count 4.26 (L) 4.4 - 5.9 [place] 10e12/L [facility] Comment: Reviewed: OK with previous Hemoglobin 14.2 13.3 - 17.7 g/dL [facility] Hematocrit 42.7 40.0 - 53.0 % [facility] MCV 100 78 - 100 fl [facility] [address] MCH 33.3 (H) 26.5 - 33.0 pg [facility] Comment: Reviewed: OK with previous MCHC 33.3 31.5 - 36.5 g/dL [place] CLIN ICS [place] RDW 11.9 10.0 - 15.0 % [facility] Platelet Count 185 150 - 450 10e9/L [facility] Specimen Anatomical Collection Method Collection Time Receive d Time (Source) Location / / Volume Laterality Blood specimen 01/24/2015 8:27 AM 015 8:32 (specimen) CDT AM CDT Andrey Tamez MD LAB - BLOOD ORDERABLES Performing Organization Address City/State/ZIP Code Phon e Number [facility] [address] [place], [place] [address] [address] documented in [...] plaque documented in this encounter Care Teams Rn Psych Relationship Specialty Start Date End Date Andrey Tamez MD PCP - General 03/26/09 Andrey Tamez MD PCP - Assigned PCP 09/11/12 11/08/18 [address] [place] [address] Andrey Tamez MD Assigned PCP 09/11/12 09/07/20 [address] [place] [address] documented as of this encounter
--- OUTSIDE RECORDS SUMMARY | 2022-07-28 08:06 | XMS_ITS | Encounter Summary ---
:1945 Author Organization [place] Address [address] [place] [address] Care Team Providers Name Role Phone Andrey Tamez MD Primary Care Provider Andrey Tamez MD Unavailable Andrey Tamez MD Unavailable Encounter Details Date Type Department Care Team Description 05/01/2014 Orders Only [facility] Typ e 2 diabetes, HbA1C [facility] goal < 8% (H) [address] [place] [address] Social History Tobacco Use Types Packs/Day Years Used Date Smoking Tobacco: Former Cigarettes 0.5 16 Quit : 09/06/1978 Smokeless Tobacco: Never Alcohol Use Standard Drinks/Week Comments Yes 10 (1 standard drink = 0.6 oz pure alcoh ol) A drink every 1-2 weeks. 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 The NCEP recommends further evaluation of: patients with cholesterol greater than 200 mg/dL if additional risk facto rs are present, cholesterol greater than 240 mg/dL, triglycerides greater than 1 50 mg/dL, or HDL less than 40 mg/dL. Triglycerides 188 (H) 0 - 150 mg/dL [facility] HDL Cholesterol 45 >40 mg/dL [facility] LDL Cholesterol Calculated 87 0 - 129 mg/dL [facility] Comment: LDL Cholesterol is the primary guide to therapy: LDL-cholesterol goal in high risk patients is <100 mg/dL and in very high risk patients is <70 mg/dL. VLDL-Cholesterol 38 (H) 0 - 30 mg/dL [facility] Cholesterol/HDL Ratio 3.8 0.0 - 5.0 [facility] Specimen Anatomical Collection Method Collection Time Receive d Time (Source) Location / / Volume Laterality Blood specimen 05/01/2014 8:53 AM 014 8:55 (specimen) CDT AM CDT Andrey Tamez MD LAB - BLOOD ORDERABLES Performing Organization Address City/State/ZIP Code Phon e Number [facility] [address] [place] [address] [facility] [address] [place], [place] [address] (ABNORMAL) Hemoglobin A1c (05/01/2014 8:53 AM CDT) Analysis Performed At Patho logist Time Signature Hemoglobin A1C 6.5 (H) 4.3 - 6.0 [facility] Specimen Anatomical Collection Method Collection Time Receive d Time (Source) Location / / Volume Laterality Blood specimen 05/01/2014 8:53 AM 014 8:55 (specimen) CDT AM CDT Andrey Tamez MD LAB - BLOOD ORDERABLES Performing Organization Address City/State/ZIP Code Phon e Number [facility] [address] [place] [address] [address] (ABNORMAL) Comprehensive metabolic panel (05/01/2014 8:53 AM CDT) Analysis Performed At Patho logist Time Signature Sodium 139 133 - 144 [facility] mmol/L [facility] Potassium 4.9 3.4 - 5.3 [facility] mmol/L [facility] Chloride 103 94 - 109 [facility] mmol/L [facility] Carbon Dioxide 27 20 - 32 [facility] mmol/L [facility] Anion Gap 9 6 - 17 [facility] mmol/L [facility] Glucose 145 (H) 70 - 99 [facility] mg/dL [facility] Comment: Effective 04/04/2014, the reference range for this assay has changed to reflect new instrumentation/methodology. Urea Nitrogen 19 7 - 30 mg/dL [facility] Comment: Effective 04/04/2014, the reference range for this assay has changed to reflect new instrumentation/methodology. Creatinine 1.03 0.66 - 1.25 mg/dL [facility] GFR Estimate 72 >60 mL/min/1.7m2 [facility] Comment: Non GFR Calc GFR Estimate If Black 87 >60 mL/min/1.7m2 [facility] Comment: GFR Calc Calcium 9.4 8.5 - 10.1 mg/dL [facility] Comment: Effective 04/04/2014, the reference range for this assay has changed to reflect new instrumentation/methodology. Bilirubin Total 0.6 0.2 - 1.3 mg/dL [facility] Albumin 4.0 3.3 - 4.9 g/dL [facility] Protein Total 6.6 (L) 6.8 - 8.8 g/dL [facility] Alkaline Phosphatase 82 40 - 150 U/L [facility] ALT 21 0 - 70 U/L [facility] AST 12 0 - 45 U/L [facility] Specimen Anatomical Collection Method Collection Time Receive d Time (Source) Location / / Volume Laterality Blood specimen 05/01/2014 8:53 AM 014 8:55 (specimen) CDT AM CDT Andrey Tamez MD LAB - BLOOD ORDERABLES Performing Organization Address City/State/ZIP Code Phon e Number [facility] [address] [place] [address] [facility] [address] [place], [place] [address] documented in this encounter Visit Diagnoses Diagnosis Type 2 diabetes, HbA1C goal < 8% (H) Type II or unspecified type diabetes vijaya litus without mention of complication, not stated as uncontrolled documented in this encounter Care Teams Coal Equipment Operator Relationship Specialty Start Date End Date Andrey Tamez MD PCP - General 03/26/09 Andrey Tamez MD PCP - Assigned PCP 09/11/12 11/08/18 [address] [place], [place] [phone] Andrey Tamez MD Assigned PCP 09/11/12 09/07/20 [address] [place] [address] documented as of this encounter
--- OUTSIDE RECORDS SUMMARY | 2022-07-28 08:06 | XMS_ITS | Encounter Summary ---
:1945 Author Organization [place] Address [address] [place] [address] Care Team Providers Name Role Phone Andrey Tamez MD Primary Care Provider Andrey Tamez MD Unavailable Andrey Tamez MD Unavailable Encounter Details Date Type Department Care Team Description 01/11/2014 Orders Only [facility] Typ e 2 diabetes, HbA1C [facility] goal < 8% (H) [address] [place] [address] Social History Tobacco Use Types Packs/Day Years Used Date Smoking Tobacco: Former Cigarettes 0.5 16 Quit : 09/06/1978 Smokeless Tobacco: Never Alcohol Use Standard Drinks/Week Comments Yes 10 (1 standard drink = 0.6 oz pure alcoh ol) A drink every 1-2 weeks. 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 Plan [...] Routine 01/11/2014 8:17 AM Type 2 diabe jamial, Results for this LDL PANEL CDT HbA1C [...] CDT) P athologist Signature Creatinine 100 mg/dL [facility] Urine [facility] Albumin Urine 6 mg/L [facility] mg/L [facility] Albumin Urine 6.00 0 - 17 [facility] mg/g Cr mg/g Cr [facility] Specimen Anatomical Collection Method Collection Time Receive d Time (Source) Location / / Volume Laterality Urine specimen 01/11/2014 8:18 AM 014 8:23 (specimen) CDT AM CDT Andrey Tamez MD LAB - URINE ORDERABLES Performing Organization Address City/State/ZIP Code Phon e Number [facility] [address] [place], [place] [phone] [place] [address] LABS (ABNORMAL) Lipid panel reflex to direct LDL (01/11/2014 8:17 AM CDT) P athologist Signature Cholesterol 172 <200 mg/dL [facility] Comment: LDL Cholesterol is the primary guide to therapy. The NCEP recommends further evaluation of: patients with cholesterol greater than 200 mg/dL if additional risk facto rs are present, cholesterol greater than 240 mg/dL, triglycerides greater than 1 50 mg/dL, or HDL less than 40 mg/dL. Triglycerides 182 (H) 0 - 150 mg/dL [facility] HDL Cholesterol 33 (L) >40 mg/dL [facility] LDL Cholesterol Calculated 102 0 - 129 mg/dL [facility] Comment: LDL Cholesterol is the primary guide to therapy: LDL-cholesterol goal in high risk patients is <100 mg/dL and in very high risk patients is <70 mg/dL. VLDL-Cholesterol 36 (H) 0 - 30 mg/dL [facility] Cholesterol/HDL Ratio 5.1 (H) 0.0 - 5.0 [facility] Specimen Anatomical Collection Method Collection Time Receive d Time (Source) Location / / Volume Laterality Blood specimen 01/11/2014 8:17 AM 014 8:22 (specimen) CDT AM CDT Andrey Tamez MD LAB - BLOOD ORDERABLES Performing Organization Address City/[facility]/ZIP Code Phon e Number [facility] [address] [place] [address] (ABNORMAL) Hemoglobin A1c (01/11/2014 8:17 AM CDT) Analysis Performed At Patho logist Time Signature Hemoglobin A1C 7.7 (H) 4.3 - 6.0 [facility] Comment: Reviewed: OK with previous Specimen Anatomical Collection Method Collection Time Receive d Time (Source) Location / / Volume Laterality Blood specimen 01/11/2014 8:17 AM 014 8:22 (specimen) CDT AM CDT Andrey Tamez MD LAB - BLOOD ORDERABLES Performing Organization Address City/[facility]/ZIP Code Phon e Number [facility] [address] [place], [place] [address] [address] (ABNORMAL) Comprehensive metabolic panel (01/11/2014 8:17 AM CDT) P athologist Signature Sodium 137 133 - 144 [place] mmol/L [facility] Potassium 4.4 3.4 - 5.3 [place] mmol/L [facility] Chloride 101 94 - 109 [place] mmol/L [facility] Carbon Dioxide 26 20 - 32 [place] mmol/L [facility] Anion Gap 10 6 - 17 [place] mmol/L [facility] Glucose 158 (H) 60 - 99 [place] mg/dL [facility] Comment: Fasting specimen Urea Nitrogen 22 7 - 30 mg/dL [facility] Creatinine 0.90 0.66 - 1.25 mg/dL [facility] GFR Estimate 84 >60 mL/min/1.7m2 [facility] GFR Estimate If Black >90 >60 mL/min/1.7m2 F [facility] Calcium 9.0 8.5 - 10.4 mg/dL [facility] Bilirubin Total 0.5 0.2 - 1.3 mg/dL [facility] Albumin 3.8 3.3 - 4.9 g/dL [facility] Comment: Reference range changed on 05/08. Protein Total 6.3 (L) 6.8 - 8.8 g/dL [facility] Comment: As of 08, reference range reflects plasma specimen type. Alkaline Phosphatase 83 40 - 150 U/L [facility] ALT 28 0 - 70 U/L [facility] AST 20 0 - 45 U/L [facility] Specimen Anatomical Collection Method Collection Time Receive d Time (Source) Location / / Volume Laterality Blood specimen 01/11/2014 8:17 AM 014 8:22 (specimen) CDT AM CDT Andrey Tamez MD LAB - BLOOD ORDERABLES Performing Organization Address City/[facility]/ZIP Code Phon e Number [facility] [address] [place] [address] TSH with free T4 reflex (01/11/2014 8:17 AM CDT) P athologist Signature TSH 0.98 0.4 - 5.0 [facility] mU/L [facility] Specimen Anatomical Collection Method Collection Time Receive d Time (Source) Location / / Volume Laterality Blood specimen 01/11/2014 8:17 AM 014 8:22 (specimen) CDT AM CDT Andrey Tamez MD LAB - BLOOD ORDERABLES Performing Organization Address City/[facility]/ZIP [facility] Phon e Number [facility] [address] [place] [address] [facility] [address] [place], [place] [address] documented in this encounter Visit Diagnoses Diagnosis Type 2 diabetes, HbA1C goal < 8% (H) Type II or unspecified type diabetes vijaya litus without mention of complication, not stated as uncontrolled documented in this encounter Care Teams Family Medicine Chair Relationship Specialty Start Date End Date Andrey Tamez MD PCP - General 03/26/09 Andrey Tamez MD PCP - Assigned PCP 09/11/12 11/08/18 [address] [phone] Andrey Tamez MD Assigned PCP 09/11/12 09/07/20 [address] [phone] documented as of this encounter
--- OUTSIDE RECORDS SUMMARY | 2022-07-28 08:06 | XMS_ITS | Encounter Summary ---
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 Andrey Tamez MD, [facility] documented in this encounter Nursing Notes Faye [...] BP completed using cuff size: large JBuffie BOTTOM MAN documented in this encounter Plan of Treatment [...] athologist Signature TSH 0.66 0.40 - 4.00 [facility] mU/L [facility] Specimen Anatomical Collection Method Collection Time Receive d Time (Source) Location / / Volume Laterality Blood specimen 02/07/2016 10:41 6 (specimen) AM CDT 10:46 AM CDT Andrey Tamez MD LAB - BLOOD ORDERABLES Performing Organization Address City/State/ZIP Code Phon e [facility] [address] [place] [address] Microalbumin quantitative, random urine (02/07/2016 10:41 AM CDT) athologist Signature Creatinine 138 mg/dL [facility] Urine [facility] Albumin Urine 23 mg/L [facility] mg/L [facility] Albumin Urine 16.45 0 - 17 [facility] mg/g Cr mg/g Cr [facility] Specimen Anatomical Collection Method Collection Time Receive d Time (Source) Location / / Volume Laterality Urine specimen 02/07/2016 10:41 6 (specimen) AM CDT 10:46 AM CDT Andrey Tamez MD LAB - URINE ORDERABLES Performing Organization Address City/State/ZIP Code Phon e Number [facility] [address] [address] [phone] [facility] [address] [address], U [phone] (ABNORMAL) Lipid panel reflex to direct LDL (02/07/2016 10:41 AM CDT) Analysis Performed At [facility] logist Time Signature Cholesterol 150 <200 mg/dL [facility] Triglycerides 252 (H) <150 mg/dL [facility] Comment: Borderline high: ??150-199 mg/dl High: ? 200-499 mg/dl Very high: ? >499 mg/dl Fasting specimen HDL Cholesterol 39 (L) >39 mg/dL [facility] LDL Cholesterol Calculated 61 <100 mg/dL [facility] Comment: Desirable: <100 mg/dl Non HDL Cholesterol 111 <130 mg/dL [facility] Specimen Anatomical Collection Method Collection Time Receive d Time (Source) Location / / Volume Laterality Blood specimen 02/07/2016 10:41 6 (specimen) AM CDT 10:46 AM CDT Andrey Tamez MD LAB - BLOOD ORDERABLES Performing Organization Address City/State/ZIP Code Phon e Number [facility] [address] [place] [address] (ABNORMAL) Comprehensive metabolic panel (02/07/2016 10:41 AM CDT) [facility] gist Method Time Signature Sodium 141 133 - 144 [facility] mmol/L [facility] Potassium 4.8 3.4 - 5.3 [facility] mmol/L [facility] Chloride 106 94 - 109 [facility] mmol/L [facility] Carbon Dioxide 27 20 - 32 [facility] mmol/L [facility] Anion Gap 8 3 - 14 [facility] mmol/L [facility] Glucose 149 (H) 70 - 99 [facility] mg/dL [facility] Urea Nitrogen 14 7 - 30 [facility] mg/dL [facility] Creatinine 1.05 0.66 - [facility] 1.25 mg/dL [facility] GFR Estimate 70 >60 [facility] mL/min/1.7 CLINICS m2 [facility] Comment: Non GFR Calc GFR Estimate If Black 84 >60 mL/min/1.7m2 F [facility] Comment: GFR Calc Calcium 8.9 8.5 - 10.1 mg/dL [facility] I[facility] Bilirubin Total 0.4 0.2 - 1.3 mg/dL [facility] Albumin 3.8 3.4 - 5.0 g/dL [facility] S [facility] Protein Total 6.4 (L) 6.8 - 8.8 g/dL [facility] Alkaline Phosphatase 78 40 - 150 U/L [facility] EW [facility] ALT 28 0 - 70 U/L [facility] AST 16 0 - 45 U/L [facility] Specimen Anatomical Collection Method Collection Time Receive d Time (Source) Location / / Volume Laterality Blood specimen 02/07/2016 10:41 6 (specimen) AM CDT 10:46 AM CDT Andrey Tamez MD LAB - BLOOD ORDERABLES Performing Organization Address City/State/ZIP Code Phon e Number [facility] [address] [place] [address] (ABNORMAL) Hemoglobin A1c (02/07/2016 10:41 AM CDT) Analysis Performed At Patho logist Time Signature Hemoglobin A1C 7.5 (H) 4.3 - 6.0 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) Type II or unspecified type diabetes vijaya litus with neurological manifestations, not stated as uncontrolled Coronary artery disease involving mashpee coronary artery of mashpee heart, angina presence unspecified Hyperlipidemia LDL goal <100 Other and unspecified hyperlipidemia Essential hypertension with goal blood p ressure less than 140/90 documented in this encounter Care Teams Certified Hand Therapist Relationship Specialty Start Date End Date Andrey Tamez MD PCP - General 03/26/09 Andrey Tamez MD PCP - Assigned PCP 09/11/12 11/08/18 [address] [address] Andrey Tamez MD Assigned PCP 09/11/12 09/07/20 [address] [place], [place] [phone] documented as of this encounter
--- OUTSIDE RECORDS SUMMARY | 2022-07-28 08:07 | XMS_ITS | Encounter Summary ---
:1945 Author Organization [place] Address [address] [place] [address] Care Team Providers Name Role Phone Andrey Tamez MD Primary Care Provider Reason for Visit Reason Onset Date Comments Refill Request 03/28/2012 V[place] Encounter Details Date Type Department Care Team Description 03/28/2012 Refill [facility] Andrey Tamez MD Refill Request Clinic [place] [address] (Vytorin) [address] [place], [place] [address] [place] [address] (Wo rk) [address] [phone] Social History Tobacco Use Types Packs/Day Years Used Date Smoking Tobacco: Former Cigarettes 0.5 16 Quit : 09/06/1978 Smokeless Tobacco: Never Alcohol Use Standard Drinks/Week Comments Yes 10 (1 standard drink = 0.6 oz pure alcoh ol) A drink every 1-2 weeks. 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 Telephone Encounter - Jade Gill MD - 03/28/2012 1:47 PM CDT Sent simvastatin to pharmacy. Let patient know we should repeat cholesterol level in 3 months. Telephone Encounter - Aye Lee - 03/28/2012 9:09 AM CDT Message from [place] requesting alternate medication for Vytorin 10/20 mg. [...] rimary documented in this encounter Care Teams Service Or Work Dispatcher Relationship Specialty Start Date End Date Andrey Tamez MD PCP - General 03/26/09 documented as of this encounter
--- OUTSIDE RECORDS SUMMARY | 2022-07-28 08:07 | XMS_ITS | Encounter Summary ---
:1945 Author Organization [place] Address [address] [place] [address] Care Team Providers Name Role Phone Andrey Tamez MD Primary Care Provider Andrey Tamez MD Unavailable Andrey Tamez MD Unavailable Encounter Details Date Type Department Care Team Description 05/24/2013 E-Visit [facility] Andrey Tamez MD Salivary duct calculi Clinic [place] [address] (Primary Dx) [address] [place] [address] [place], [place] [phone] (Wo rk) [address] [phone] Social History Tobacco Use Types Packs/Day Years Used Date Smoking Tobacco: Former Cigarettes 0.5 16 Quit : 09/06/1978 Smokeless Tobacco: Never Alcohol Use Standard Drinks/Week Comments Yes 10 (1 standard drink = 0.6 oz pure alcoh ol) A drink every 1-2 weeks. 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 [place]. Called to Pharmacy. GAURAV Mg documented in this encounter Plan of Treatment Not on filedocumented as of this encounter Visit Diagnoses Diagnosis Salivary duct calculi - Primary Sialolithiasis documented in this encounter Care Teams Inspector And Adjuster Golf [employer] Head Relationship Specialty Start Date End Date Andrey Tamez MD PCP - General 03/26/09 Andrey Tamez MD PCP - Assigned PCP 09/11/12 11/08/18 [address] [place] [address] Andrey Tamez MD Assigned PCP 09/11/12 09/07/20 [address] [place] [address] documented as of this encounter
--- OUTSIDE RECORDS SUMMARY | 2022-07-28 08:07 | XMS_ITS | Encounter Summary ---
:1945 Author Organization [place] Address [address] [place] [address] Care Team Providers Name Role Phone Andrey Tamez MD Primary Care Provider Andrey Tamez MD Unavailable Andrey Tamez MD Unavailable Reason for Visit Reason Onset Date Comments Nurse Advice Line 09/07/2011 Encounter Details Date Type Department Care Team Description 09/07/[address] [facility] Andrey Tamez MD Nurse Advice Line [place] [address] [facility] 303 [facility] [address] [place] [address] [place], [place] [phone] (Wo rk) [address] [phone] Social History Tobacco Use Types Packs/Day Years Used Date Smoking Tobacco: Former Cigarettes 0.5 16 Quit : 09/06/1978 Alcohol Use Standard Drinks/Week Comments Yes 10 (1 standard drink = 0.6 oz pure alcoh ol) A drink every 1-2 weeks. 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 Patient Gender: Male Supervisor Electronic Testing Name: Shiela Slaughter Presenting Problem: I had [...] air. Be sure to clean according to director of culture's instructions. - May inhale steam from hot [...] Medication Note: Allergy: Reaction: Procedure: Procedure Note: CAPTAIN documented in this encounter Plan of Treatment Not on filedocumented as of this encounter Visit Diagnoses Not on filedocumented in this encounter Care Teams Brand Sales Manager Relationship Specialty Start Date End Date Andrey Tamez MD PCP - General 03/26/09 Andrey Tamez MD PCP - Assigned PCP 09/11/12 11/08/18 [address] MIT[address] [address] Andrey Tamez MD Assigned PCP 09/11/12 09/07/20 [address] [facility] [address] [place], [place] [phone] documented as of this encounter
--- OUTSIDE RECORDS SUMMARY | 2022-07-28 08:07 | XMS_ITS | Encounter Summary ---
:1945 Author Organization [facility] Address [address] [place] [address] Care Team Providers Name Role Phone Andrey Tamez MD Primary Care Provider Andrey Tamez MD Unavailable Andrey Tamez MD Unavailable Reason for Visit Reason Onset Date Comments Refill Request 10/13/2012 multiple Encounter Details Date Type Department Care Team Description 10/13/2012 [facility] [place] [facility] Jade Gill Refill Request Clinic Bryant Larson MD (multiple) [address] [facility] [address] [place] [phone] Social History Tobacco Use Types Packs/Day Years Used Date Smoking Tobacco: Former Cigarettes 0.5 16 Quit : 09/06/1978 Smokeless Tobacco: Never Alcohol Use Standard Drinks/Week Comments Yes 10 (1 standard drink = 0.6 oz pure alcoh ol) A drink every 1-2 weeks. 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 Miscellaneous Notes Telephone Encounter - Laquita Walter - 10/13/2012 12:02 PM CST Refilled x 1 TEACHER Telephone Encounter - Walter, Laquita - 10/13/2012 9:38 AM LD TEACHER Message from [employer]: Original authorizing provider: MD Rodolfo Adair would like a refill of the following medications: simvastatin (ZOCOR) 20 MG tablet [Jade Gill MD] Preferred pharmacy: [facility] - [place], [place] - [address] [facility] Comment: Medication renewals requested in this message routed to other providers: ramipril (ALTACE) 10 MG capsule [Andrey Tamez MD, MD] metoprolol (LOPRESSOR) 100 MG tablet [Andrey Tamez MD, MD] clopidogrel (PLAVIX) 75 MG tablet [Andrey Tamez MD, MD] TEACHER documented in this encounter Plan of Treatment Not on filedocumented as of this encounter Visit Diagnoses Diagnosis Other and unspecified hyperlipidemia - P rimary documented in this encounter Care Teams Gunner Mate Relationship Specialty Start Date End Date Andrey Tamez MD PCP - General 03/26/09 Andrey Tamez MD PCP - Assigned PCP 09/11/12 11/08/18 [address] [place] [address] Andrey Tamez MD Assigned PCP 09/11/12 09/07/20 [address] [place] [address] documented as of this encounter
--- OUTSIDE RECORDS SUMMARY | 2022-07-28 08:07 | XMS_ITS | Encounter Summary ---
:1945 Author Organization [facility] Address [address] [place] [address] Care Team Providers Name Role Phone Andrey Tamez MD Primary Care Provider Reason for Referral Referral not Required - Closed Specialty Diagnoses / Procedures Referred By Contact Refer red To Contact Diagnoses Screening colonoscopy Andrey Tamez MD [place] [address] [place] [address] [address]66 [facility] [address] [place] [address] Phone: Fax: Referral ID Status Reason Start Date Expiration Date Visits Requ ested Visits Authorized [id number] Closed 02/19/2011 08/18/2011 1 1 Reason for Visit Reason Comments Diabetes Pt does not have a monitor k it, colonescopy due , pnuemovax and tdap. Pre Visit Planning - Done Encounter Details Date Type Department Care Team Description 02/19/2011 Office Visit [facility] Andrey Tamez, Type 2 diabetes, HbA1C goal < 8% (H); Clinic Bryant MAY Hyperlipidemia LDL goal <100; [address] Unspecified e ssential hypertension; [address] Screening colonoscopy; [place], [place] CAD (castillo ry artery disease); [id number] Need for Tdap vaccination; [phone] Vaccin strep pn eumoniae (Work) Social History Tobacco Use Types Packs/Day Years Used Date Smoking Tobacco: Former Cigarettes 0.5 16 Quit : 09/06/1978 Alcohol Use Standard Drinks/Week Comments Yes 10 (1 standard drink = 0.6 oz pure alcoh ol) A drink every 1-2 weeks. 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
--- OUTSIDE RECORDS SUMMARY | 2022-07-28 08:07 | XMS_ITS | Encounter Summary ---
:1945 Author Organization [facility] Address [address] [place] [address] Care Team Providers Name Role Phone Andrey Tamez MD Primary Care Provider Andrey Tamez MD Unavailable Andrey Tamez MD Unavailable Encounter Details Date Type Department Care Team Description 10/11/2012 Orders Only [facility] Clinic Typ e 2 diabetes, HbA1C [facility] goal < 8% (H) (Primary Dx) [address] [place] [address] Social History Tobacco Use Types Packs/Day Years Used Date Smoking Tobacco: Former Cigarettes 0.5 16 Quit : 09/06/1978 Smokeless Tobacco: Never Alcohol Use Standard Drinks/Week Comments Yes 10 (1 standard drink = 0.6 oz pure alcoh ol) A drink every 1-2 weeks. 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 LIPID REFLEX TO DIRECT Routine 10/11/2012 9:40 AM Type 2 diabe jamila, Results for this LDL PANEL HYDRATOR OPERATOR HbA1C goal < 8% (H) procedur e are in the results section. HEMOGLOBIN A1C Routine 10/11/2012 9:40 AM Type 2 diabetes, Res ults for this HYDRATOR OPERATOR HbA1C goal < 8% (H) procedangela e are in the results section. COMPREHENSIVE Routine 10/11/2012 9:40 AM Type 2 diabetes, Resu lts for this METABOLIC PANEL HYDRATOR OPERATOR HbA1C goal < 8% (H) proce rickie are in the results section. documented in this encounter Results TSH with free T4 reflex (10/11/2012 11:39 AM HYDRATOR OPERATOR) athologist Signature TSH 1.00 0.4 - 5.0 [facility] mU/L CLINIC LAB Specimen Anatomical Collection Method Collection Time Receive d Time (Source) Location / / Volume Laterality Blood specimen 10/11/2012 11:39 3 (specimen) AM HYDRATOR OPERATOR 11:44 AM HYDRATOR OPERATOR Andrey Tamez MD LAB - BLOOD ORDERABLES Performing Organization Address City/State/ZIP Code Phon e Number [facility] [address] [place] [address] [facility] [address] [place] [address] (ABNORMAL) Lipid panel reflex to direct LDL (10/11/2012 9:40 AM HYDRATOR OPERATOR) athologist Signature Cholesterol 160 0 - 200 [facility] mg/dL CLINIC LAB Comment: LDL Cholesterol is the primary guide to therapy. The NCEP recommends further evaluation of: patients with cholesterol greater than 200 mg/dL if additional risk facto rs are present, cholesterol greater than 240 mg/dL, triglycerides greater than 1 50 mg/dL, or HDL less than 40 mg/dL. Triglycerides 177 (H) 0 - 150 mg/dL [facility] HDL Cholesterol 33 (L) 40 - 110 mg/dL [facility] LDL Cholesterol Calculated 92 0 - 129 mg/dL [facility] Comment: LDL Cholesterol is the primary guide to therapy: LDL-cholesterol goal in high risk patients is <100 mg/dL and in very high risk patients is <70 mg/dL. VLDL-Cholesterol 35 (H) 0 - 30 mg/dL [facility] Cholesterol/HDL Ratio 4.9 0.0 - 5.0 [facility] Specimen Anatomical Collection Method Collection Time Receive d Time (Source) Location / / Volume Laterality Blood specimen 10/11/2012 9:40 AM 013 9:45 (specimen) HYDRATOR OPERATOR AM HYDRATOR OPERATOR Andrey Tamez MD LAB - BLOOD ORDERABLES Performing Organization Address [facility] Phon e Number [facility] [address] [place] [address] [facility] [address] [place] [address] (ABNORMAL) Hemoglobin A1c (10/11/2012 9:40 AM HYDRATOR OPERATOR) athologist Signature Hemoglobin A1C 7.2 (H) 4.3 - 6.0 [facility] Specimen Anatomical Collection Method Collection Time Receive d Time (Source) Location / / Volume Laterality Blood specimen 10/11/2012 9:40 AM 013 9:45 (specimen) HYDRATOR OPERATOR AM HYDRATOR OPERATOR Andrey Tamez MD LAB - BLOOD ORDERABLES Performing Organization Address City/[facility] Phon e Number [facility] [address] [place], [place] [address] [address] [facility] [address] [place], [place] [address] [address] (ABNORMAL) Comprehensive metabolic panel (10/11/2012 9:40 AM HYDRATOR OPERATOR) athologist Signature Sodium 138 133 - 144 [facility] mmol/L CLINIC LAB Potassium 4.6 3.4 - 5.3 [facility] mmol/L CLIN[facility] LAB Chloride 102 94 - 109 [facility] mmol/L CLINIC LAB Carbon Dioxide 27 20 - 32 [facility] mmol/L CLINIC LAB Anion Gap 9 6 - 17 [facility] mmol/L CLINIC LAB Glucose 164 (H) 60 - 99 [facility] mg/dL CLINIC LAB Comment: Fasting specimen Urea Nitrogen 19 7 - 30 mg/dL [facility] Creatinine 0.89 0.66 - 1.25 mg/dL [facility] GFR Estimate 85 >60 mL/min/1.7m2 [facility] GFR Estimate If Black >90 >60 mL/min/1.7m2 [facility] Calcium 9.2 8.5 - 10.4 mg/dL [facility] Bilirubin Total 0.5 0.2 - 1.3 mg/dL [facility] Albumin 3.7 3.3 - 4.9 g/dL [facility] Comment: Reference range changed on 05/08. Protein Total 6.5 (L) 6.8 - 8.8 g/dL [facility] Comment: As of 08, reference range reflects plasma specimen type. Alkaline Phosphatase 95 40 - 150 U/L [facility] ALT 27 0 - 70 U/L [facility] LAB AST 19 0 - 45 U/L [facility] LAB Specimen Anatomical Collection Method Collection Time Receive d Time (Source) Location / / Volume Laterality Blood specimen 10/11/2012 9:40 AM 013 9:45 (specimen) HYDRATOR OPERATOR AM HYDRATOR OPERATOR Andrey Tamez MD LAB - BLOOD ORDERABLES Performing Organization Address City/State/ZIP Code Phon e Number [facility] [address] [place] [address] [facility] [address] [place] [address] documented in this encounter Visit Diagnoses Diagnosis Type 2 diabetes, HbA1C goal < 8% (H) - P rimary Type II or unspecified type diabetes vijaya litus without mention of complication, not stated as uncontrolled documented in this encounter Care Teams Head Lineman Relationship Specialty Start Date End Date Andrey Tamez MD PCP - General 03/26/09 Andrey Tamez MD PCP - Assigned PCP 09/11/12 11/08/18 [address] [place] [address] Andrey Tamez MD Assigned PCP 09/11/12 09/07/20 [address] [place] [address] documented as of this encounter
--- OUTSIDE RECORDS SUMMARY | 2022-07-28 08:07 | XMS_ITS | Encounter Summary ---
:1945 Author Organization [facility] Address [address] [place] [address] Care Team Providers Name Role Phone Andrey Tamez MD Primary Care Provider Reason for Visit Reason Onset Date Comments Chronic Care Conference Provider Overview 12/10/2010 Encounter Details Date Type Department Care Team Description 12/10/2010 Telephone [facility] Andrey Tamez MD [facility] [place] [address] Conference Provider [address] [place] [address] [place], [place] [phone] (Wo rk) [address] [phone] Social History Tobacco Use Types Packs/Day Years Used Date Smoking Tobacco: Former Cigarettes 0.5 16 Quit : 09/06/1978 Alcohol Use Standard Drinks/Week Comments Yes 10 (1 standard drink = 0.6 oz pure alcoh ol) A drink every 1-2 weeks. 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
--- OUTSIDE RECORDS SUMMARY | 2022-07-28 08:07 | XMS_ITS | Encounter Summary ---
:1945 Author Organization [facility] Address [address] [place] [address] Care Team Providers Name Role Phone Andrey Tamez MD Primary Care Provider Andrey Tamez MD Unavailable Andrey Tamez MD Unavailable Reason for Visit Reason Onset Date Comments Refill Request 10/13/2012 Encounter Details Date Type Department Care Team Description 10/13/2012 [facility] [place] [facility] Andrey Tamez MD Refill Request [place] [address] [facility] [address] [place] [address] [facility] [place] [address] [phone] Social History Tobacco Use Types Packs/Day Years Used Date Smoking Tobacco: Former Cigarettes 0.5 16 Quit : 09/06/1978 Smokeless Tobacco: Never Alcohol Use Standard Drinks/Week Comments Yes 10 (1 standard drink = 0.6 oz pure alcoh ol) A drink every 1-2 weeks. 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 Miscellaneous Notes Telephone Encounter - Laquita Walter - 10/13/2012 12:02 PM CST Refilled x 1 TRIC METER REPAIRER Telephone Encounter - Jose Angel Laquita - 10/13/2012 12:02 PM ELECTRIC METER REPAIRER Message from [employer]: Original authorizing provider: Andrey Tamez MD, MD Rodolfo Quevedo would like a refill of the following medications: ramipril (ALTACE) 10 MG capsule [Andrey Tamez MD, MD] metoprolol (LOPRESSOR) 100 MG tablet [Andrey Tamez MD, MD] clopidogrel (PLAVIX) 75 MG tablet [Andrey Tamez MD, MD] [facility] [place] [place] [facility] [address] [facility] Comment: Medication renewals requested in this message routed to other providers: simvastatin (ZOCOR) 20 MG tablet [Jade Gill MD] TRIC METER REPAIRER documented in this encounter Plan of Treatment Not on filedocumented as of this encounter Visit Diagnoses Diagnosis TIA (transient ischaemic attack) Unspecified transient cerebral ischemia CAD (coronary artery disease) Coronary atherosclerosis of unspecified type of vessel, [place] or graft Unspecified essential hypertension documented in this encounter Care Teams Binder Folder Operator Relationship Specialty Start Date End Date Andrey Tamez MD PCP - General 03/26/09 Andrey Tamez MD PCP - Assigned PCP 09/11/12 11/08/[address] [place] [address] Andrey Tamez MD Assigned PCP 09/11/12 09/07/[address] [place] [address] documented as of this encounter
--- OUTSIDE RECORDS SUMMARY | 2022-07-28 08:07 | XMS_ITS | Encounter Summary ---
:1945 Author Organization [place] Address [address] [place] [address] Care Team Providers Name Role Phone Andrey Tamez MD Primary Care Provider Reason for Visit Reason Onset Date Comments Refill Request 03/17/2012 [facility] Encounter Details Date Type Department Care Team Description 03/17/2012 Refill [facility] Andrey Tamez MD Refill Request Clinic [place] [address] ([facility]) [address] [place], [place] [address] [place] [address] (Wo rk) [address] [phone] Social History Tobacco Use Types Packs/Day Years Used Date Smoking Tobacco: Former Cigarettes 0.5 16 Quit : 09/06/1978 Smokeless Tobacco: Never Alcohol Use Standard Drinks/Week Comments Yes 10 (1 standard drink = 0.6 oz pure alcoh ol) A drink every 1-2 weeks. 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
--- OUTSIDE RECORDS SUMMARY | 2022-07-28 08:07 | XMS_ITS | Encounter Summary ---
:1945 Author Organization [facility] Address [address] [place] [address] Care Team Providers Name Role Phone Andrey Tamez MD Primary Care Provider Reason for Visit Auth/Cert - Closed Specialty Diagnoses / Procedures Referred By Contact Refer red To Contact Gastroenterology Diagnoses screening colonosopy Rh Endoscopy Procedures COLONOSCOPY [address] [place] [address] Phone: Fax: Referral ID Status Reason Start Date Expiration Date Visits Requ ested Visits Authorized [id number] Closed 10/06/2011 04/03/2012 1 1 Encounter Details Date Type Department Care Team Description 10/26/2011 Hospital Encounter [facility] Endoscopy [place] MD Rajan [address] [facility] [address] [place] [address] [place], [place] [address] (Wo rk) Social History Tobacco Use Types Packs/Day Years Used Date Smoking Tobacco: Former Cigarettes 0.5 16 Quit : 09/06/1978 Smokeless Tobacco: Never Alcohol Use Standard Drinks/Week Comments Yes 10 (1 standard drink = 0.6 oz pure alcoh ol) A drink every 1-2 weeks. 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 encounter Last Filed Vital Signs Vital Sign Reading Time Taken Comments Blood Pressure 151/81 10/26/2011 11:00 AM COFOUNDER Pulse - - Temperature - - Respiratory Rate 14 10/26/2011 11:00 AM COFOUNDER Oxygen Saturation 91% 10/26/2011 10:40 AM COFOUNDER Inhaled Oxygen Concentration - - Weight 80.3 kg (177 lb) 10/26/2011 9:55 AM COFOUNDER Height 177.8 cm (5' 10) 10/26/2011 9:55 AM COFOUNDER Body Mass Index 25.4 10/26/2011 9:55 AM COFOUNDER documented in this encounter Medications at Time [...] 10/26/2011 10:49 AM CST See Provation note UNDER documented in this encounter Plan of Treatment Not on filedocumented as of this encounter Procedures Procedure Name Priority Date/Time Associated Diagnosis Comme nts COLONOSCOPY 10/26/2011 10:03 AM COFOUNDER screening Special Needs Referring: [facility] leliaobey r COLONOSCOPY Routine 10/26/2011 9:59 AM COFOUNDER Resul ts for this procedure are in the results section . documented in this encounter Results COLONOSCOPY (10/26/2011 9:59 AM COFOUNDER) [employer] Method Time Signature COLONOSCOPY [facility] RAD IOLOGY RESULTS Patient Name: Rodolfo [...] / / Volume Laterality 10/26/2011 9:59 AM COFOUNDER Andrey Tamez MD PROCEDURES Performing Organization Address City/State/ZIP Code Phon e Number RADIOLOGY RESULTS documented in this encounter Visit Diagnoses Not on filedocumented in this encounter Active and Recently Administered Medications Times are shown in COFOUNDER. PRN Medication Order 10/24/2011 10/25/2011 10/26/2011 fentanyl (SUBLIMAZE) injection (CANCELED) 1029 (Given - Provider: Lina Pablo, AVA) PRN, moderate to severe pain, Starting 10/26/11 at 1029, Intr a-procedure midazolam (VERSED) injection (CANCELED) 1029 (Given - Provider: Lina Pablo RN) PRN, anxiety, Starting 10/26/11 at 1029, Intra-procedure documented in this encounter Care Teams Warp Tying Machine Knotter Relationship Specialty Start Date End Date Andrey Tamez MD PCP - General 03/26/09 documented as of this encounter
--- OUTSIDE RECORDS SUMMARY | 2022-07-28 08:07 | XMS_ITS | Encounter Summary ---
:1945 Author Organization [place] Address [address] [place] [address] Care Team Providers Name Role Phone Andrey Tamez MD Primary Care Provider Andrey Tamez MD Unavailable Andrey Tmaez MD Unavailable Reason for Visit Reason Comments Health Coaching - Research Face #1 Encounter Details Date Type Department Care Team Description 06/21/2013 Allied Health/Nurse Health [facility] Coaching - Visit [facility] (Face #1) [address] [place] [phone] Social History Tobacco Use Types Packs/Day Years Used Date Smoking Tobacco: Former Cigarettes 0.5 16 Quit : 09/06/1978 Smokeless Tobacco: Never Alcohol Use Standard Drinks/Week Comments Yes 10 (1 standard drink = 0.6 oz pure alcoh ol) A drink every 1-2 weeks. 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 Patient Instructions Patient InstructionsLeslee Godoy - 06/21/2013 11:04 AM CDT June 21, 2013 [facility] [place] [address] [facility] [address] [phone] Health Coaching Progress Note Patient Name: Rodolfo Quevedo Date: June 21, 2013 Plan: (Homework, other): Patient was encouraged to continue using [employer] to seek condition-related information and education, as well as schedule a follow up appointment with the Health Customer Support Coordinator in 4 weeks Patient has set self-identified goals and will monitor progress until the next appointment. GOALS: Patient will work on the following goals until our next meeting 10:45am on 13: 1) continue exercise daily 2) test fasting/AM blood sugar 7x week 3) make follow-up lab appointment for A1C test 4) read nutrition topics sent by motor coach supervisor in [employer] 6) continue reading labels and look at carbohydrate information 5) become more aware of portion sizes daily Leslee Godoy Health Customer Support Coordinator 06/21/2013 12:07 PM documented in this encounter Progress Notes Leslee Godoy - 06/21/2013 2:07 PM CDT June 21, 2013 [place] [address] [place] [facility] [address] Health Coaching Progress Note Patient Name: Rodolfo [...] / Issues: None discussed Intervention: Motivational Interviewing [place] Intervention: Expressed Empathy/Understanding, Supported Autonomy, Collaboration, Evocation, [...] other): Patient was encouraged to continue using [employer] to seek condition-related information and education, as well as schedule a follow up appointment with the Health Customer Support Coordinator in 4 weeks Patient has set self-identified goals and will monitor progress until the next appointment. GOALS: Patient will work on the following goals until our next meeting 10:45am on : 1) continue exercise daily 2) test fasting/AM blood sugar 7x week 3) make follow-up lab appointment for A1C test 4) read nutrition topics sent by motor coach supervisor in [employer] 6) continue reading labels and look at carbohydrate information 5) become more aware of portion sizes daily Leslee Godoy Health Customer Support Coordinator 06/21/2013 2:09 PM documented in this encounter Plan of Treatment Not on filedocumented as of this encounter Visit Diagnoses Diagnosis Type 2 diabetes, HbA1C goal < 8% (H) - P rimary Type II or unspecified type diabetes vijaya litus without mention of complication, not stated as uncontrolled documented in this encounter Care Teams Bingo Checker Relationship Specialty Start Date End Date Andrey Tamez MD PCP - General 03/26/09 Andrey Tamez MD PCP - Assigned PCP 09/11/12 11/08/[address] [place] [address] Andrey Tamez MD Assigned PCP 09/11/12 09/07/[address] [place] [address] documented as of this encounter
--- OUTSIDE RECORDS SUMMARY | 2022-07-28 08:07 | XMS_ITS | Encounter Summary ---
:1945 Author Organization [place] Address [address] [place] [address] Care Team Providers Name Role Phone Andrey Tamez MD Primary Care Provider Reason for Visit Reason Onset Date Comments Chronic Disease Management 03/19/2011 do want post visit BP calls Encounter Details Date Type Department Care Team Description 03/19/2011 Telephone [facility] Jacquard Lace Weaver Andrey Taemz MD Chronic Disease [address] Management (do want [place], [place] 160 post visit BP calls) [phone] [place], [place] [phone] (Wo rk) Social History Tobacco Use Types Packs/Day Years Used Date Smoking Tobacco: Former Cigarettes 0.5 16 Quit : 09/06/1978 Alcohol Use Standard Drinks/Week Comments Yes 10 (1 standard drink = 0.6 oz pure alcoh ol) A drink every 1-2 weeks. 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 Marry Cardenas RN Telephone Encounter - Adnrey Tamez - 03/24/2011 8:14 PM CDT Yes. [...] on filedocumented in this encounter Care Teams Circuit Rider Relationship Specialty Start Date End Date Andrey Tamez MD PCP - General 03/26/09 documented as of this encounter
--- OUTSIDE RECORDS SUMMARY | 2022-07-28 08:07 | XMS_ITS | Encounter Summary ---
:1945 Author Organization [place] Address [address] [place] [address] Care Team Providers Name Role Phone Andrey Tamez MD Primary Care Provider Encounter Details Date Type Department Care Team Description 03/23/2012 Orders Only [facility] Oth er and unspecified hyperlipidemia; [facility] Type 2 diabetes, HbA1C goal < 8% (H) [address] [place] [phone] Social History Tobacco Use Types Packs/Day Years Used Date Smoking Tobacco: Former Cigarettes 0.5 16 Quit : 09/06/1978 Smokeless Tobacco: Never Alcohol Use Standard Drinks/Week Comments Yes 10 (1 standard drink = 0.6 oz pure alcoh ol) A drink every 1-2 weeks. 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 [facility] Albumin Urine Unable to 0 - 17 [facility] mg/g Cr calculate mg/g Cr [facility] Specimen Anatomical Collection Method Collection Time Receive d Time (Source) Location / / Volume Laterality Urine specimen 03/23/2012 8:50 AM 012 8:55 (specimen) CDT AM CDT Andrey Tamez MD LAB - URINE ORDERABLES Performing Organization Address City/[facility]/ZIP Code Phon e Number [id number] [place] [address] LABS (ABNORMAL) Hemoglobin A1c (03/23/2012 8:49 AM CDT) athologist Signature Hemoglobin A1C 7.7 (H) 4.3 - 6.0 [facility] Specimen Anatomical Collection Method Collection Time Receive d Time (Source) Location / / Volume Laterality Blood specimen 03/23/2012 8:49 AM 012 8:54 (specimen) CDT AM CDT Andrey Tamez MD LAB - BLOOD ORDERABLES Performing Organization Address City/State/ZIP Code Phon e Number [facility] [address] [place], [place] [address] [address] [facility] LAB (ABNORMAL) Comprehensive metabolic panel (03/23/2012 8:49 AM CDT) P athologist Signature Sodium 139 133 - 144 [facility] mmol/L [facility] Potassium 4.6 3.4 - 5.3 [facility] mmol/L [facility] Chloride 102 94 - 109 [facility] mmol/L [facility] Carbon Dioxide 28 20 - 32 [facility] mmol/L [facility] Anion Gap 9 6 - 17 [place] mmol/L [facility] Glucose 155 (H) 60 - 99 [place] mg/dL [facility] Urea Nitrogen 20 7 - 30 [place] mg/dL [facility] Creatinine 1.07 0.66 - [place] 1.25 mg/dL [facility] GFR Estimate 69 >60 [place] mL/min/1.7 [facility] m2 LAB GFR Estimate If 84 >60 [place] Black mL/min/1.7 [facility] m2 LAB Calcium 8.8 8.5 - 10.4 [place] mg/dL [facility] Bilirubin Total 0.9 0.2 - 1.3 [place] mg/dL [facility] Albumin 4.0 3.3 - 4.9 [place] g/dL [facility] Comment: Reference range changed on 05/08. Protein Total 6.4 (L) 6.8 - 8.8 g/dL [facility] Comment: As of 08, reference range reflects plasma specimen type. Alkaline Phosphatase 70 40 - 150 U/L [facility] ALT 21 0 - 70 U/L [facility] LAB AST 20 0 - 45 U/L [facility] LAB Specimen Anatomical Collection Method Collection Time Receive d Time (Source) Location / / Volume Laterality Blood specimen 03/23/2012 8:49 AM 012 8:54 (specimen) CDT AM CDT Andrey Tamez MD LAB - BLOOD ORDERABLES Performing Organization Address City/State/ZIP Code Phon e Number [facility] [address] [place] [address] [facility] LAB (ABNORMAL) Lipid panel reflex to direct LDL (03/23/2012 8:49 AM CDT) athologist Signature Cholesterol 133 0 - 200 [facility] mg/dL CLINIC LAB Comment: LDL Cholesterol is the primary guide to therapy. The NCEP recommends further evaluation of: patients with cholesterol greater than 200 mg/dL if additional risk facto rs are present, cholesterol greater than 240 mg/dL, triglycerides greater than 1 50 mg/dL, or HDL less than 40 mg/dL. Triglycerides 123 0 - 150 mg/dL [facility] HDL Cholesterol 34 (L) 40 - 110 mg/dL [facility] LDL Cholesterol Calculated 74 0 - 129 mg/dL [facility] Comment: LDL Cholesterol is the primary guide to therapy: LDL-cholesterol goal in high risk patients is <100 mg/dL and in very high risk patients is <70 mg/dL. VLDL-Cholesterol 25 0 - 30 mg/dL [facility] Cholesterol/HDL Ratio 3.9 0.0 - 5.0 [facility] Specimen Anatomical Collection Method Collection Time Receive d Time (Source) Location / / Volume Laterality Blood specimen 03/23/2012 8:49 AM 012 8:54 (specimen) CDT AM CDT Andrey Tamez MD LAB - BLOOD ORDERABLES Performing Organization Address City/State/ZIP Code Phon e Number [address] [address] [facility] documented in this encounter Visit Diagnoses Diagnosis Other and unspecified hyperlipidemia Type 2 diabetes, HbA1C goal < 8% (H) Type II or unspecified type diabetes vijaya litus without mention of complication, not stated as uncontrolled documented in this encounter Care Teams Numerical Control Programmer Relationship Specialty Start Date End Date Andrey Tamez MD PCP - General 03/26/09 documented as of this encounter
--- OUTSIDE RECORDS SUMMARY | 2022-07-28 08:07 | XMS_ITS | Encounter Summary ---
:1945 Author Organization [place] Address [address] [place] [address] Care Team Providers Name Role Phone Andrey Tamez MD Primary Care Provider Reason for Visit Reason Onset Date Comments Refill Request 06/08/2011 Ramipril, Metoprolol , Vytorin and Plavix Encounter Details Date Type Department Care Team Description 06/08/2011 Refill [facility] Andrey Tamez MD Refill Request Clinic [place] [address] (Ramipril, Metoprolol, [address] Vytorin and Plavix) [place] [address] [place], [place] [phone] (Wo rk) [address] [phone] Social History Tobacco Use Types Packs/Day Years Used Date Smoking Tobacco: Former Cigarettes 0.5 16 Quit : 09/06/1978 Alcohol Use Standard Drinks/Week Comments Yes 10 (1 standard drink = 0.6 oz pure alcoh ol) A drink every 1-2 weeks. 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
--- OUTSIDE RECORDS SUMMARY | 2022-07-28 08:07 | XMS_ITS | Encounter Summary ---
:1945 Author Organization [place] Address [address] [place] [address] Care Team Providers Name Role Phone Andrey Tamez MD Primary Care Provider Reason for Visit Reason Comments Dizziness started this am Encounter Details Date Type Department Care Team Description 06/20/2011 Emergency [facility] Lexa De León MD Vertigo; [facility] Emergency Dep t [facility] CVD (cerebrovascular disease ); [address] CAD (coronary artery disease) [place] [id number] [facility] [phone] [place], [place] [phone] (Wo rk) Social History Tobacco Use Types Packs/Day Years Used Date Smoking Tobacco: Former Cigarettes 0.5 16 Quit : 09/06/1978 Tobacco Cessation: Counseling Given: No Alcohol Use Standard Drinks/Week Comments Yes 10 (1 standard drink = 0.6 oz pure alcoh ol) A drink every 1-2 weeks. 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 [phone] [facility], [address] [place] [address], [place] [address]. All rights reserved. This information is not [...] Noevidence for acute intracranial pathology 3. Normal [place] MRA. 4. Stable, normal neck MRA. Per Dr. Osorio of radiology. 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 2. Diffuse cerebral volume loss and cerebral white matter changes consistent with sequela of chronic small vessel ischemic disease. No evidence for acute intracranialpathology. 3. Normal [place] MRA. 4. Stable, normal neck [...] provider's statements to me. Jim Serrano 06/20/2011 [facility] Lexa De León MD 06/22/11 [address] Francis - 06/20/2011 10:00 AM CDT [...] i n the results section. MRA BRAIN ([place] [facility] STAT 06/20/2011 12:17 Res ults for [...] HISTORY: ??Stroke,Evaluate for aneurysm, COMPARISON: Brain MRI, [place] MRA and neck MRA 04/12/2008. TECHNIQUE: Brain: Axial diffusion-weighted with ADC map, T2-weighted with fat saturation, T1-weighted and turboFLAIR a nd coronal T1-weighted images of the brain were obtained without intra venous contrast. ??Following intravenous administration of gadolinium ( 20 mL Magnevist) , axial turboFLAIR and coronal T1-weighted image s of the brain were obtained. MRA: 3D stfu-de-xwfcps MR angiography of the major arteries at the base of the brain was performed without contrast. ??2D naly-ci-gujunj MRA without contrast with superior and i [...] for acute intracranial patholog y. 3. Normal [place] MRA. 4. Stable, normal neck [...] HISTORY: ??Stroke,Evaluate for aneurysm, COMPARISON: Brain MRI, [place] MRA and neck MRA 04/12/2008. TECHNIQUE: Brain: Axial diffusion-weighted with ADC map, T2-weighted with fat saturation, T1-weighted and turboFLAIR a nd coronal T1-weighted images of the brain were obtained without intra venous contrast. ??Following intravenous administration of gadolinium ( 20 mL Magnevist) , axial turboFLAIR and coronal T1-weighted image s of the brain were obtained. MRA: 3D ytom-nl-mvxjmd MR angiography of the major arteries at the base of the brain was performed without contrast. ??2D eeag-ir-lfyaeh MRA without contrast with superior and i [...] for acute intracranial patholog y. 3. Normal [place] MRA. 4. Stable, normal neck [...] HISTORY: ??Stroke,Evaluate for aneurysm, COMPARISON: Brain MRI, [place] MRA and neck MRA 04/12/2008. TECHNIQUE: Brain: Axial diffusion-weighted with ADC map, T2-weighted with fat saturation, T1-weighted and turboFLAIR a nd coronal T1-weighted images of the brain were obtained without intra venous contrast. ??Following intravenous administration of gadolinium ( 20 mL Magnevist) , axial turboFLAIR and coronal T1-weighted image s of the brain were obtained. MRA: 3D ysdw-jl-gtwnud MR angiography of the major arteries at the base of the brain was performed without contrast. ??2D urgr-ac-ccipca MRA without contrast with superior and i [...] for acute intracranial patholog y. 3. Normal [place] MRA. 4. Stable, normal neck MRA. Lexa De León MD IMG MRI ORDERABLES (ABNORMAL) Glucose by meter (06/20/2011 11:25 AM CDT) P athologist Signature Glucose 171 (H) 60 - 99 [place] mg/dL [facility] Specimen Anatomical Collection Method Collection Time Receive d Time (Source) Location / / Volume Laterality 06/20/2011 11:25 06/20/2011 AM CDT 11:30 AM CDT Lexa De León MD [facility] POCT Performing Organization Address City/State/ZIP Code Phon e Number [facility] [address] [place], [place] [address] [facility] LAB (ABNORMAL) Basic metabolic panel (06/20/2011 11:00 AM CDT) P athologist Signature Sodium 140 133 - 144 [place] mmol/L [facility] Potassium 5.3 3.4 - 5.3 [place] mmol/L [facility] Chloride 103 94 - 109 [place] mmol/L [facility] Carbon Dioxide 32 20 - 32 [place] mmol/L [facility] Anion Gap 5 (L) 6 - 17 [place] mmol/L [facility] Glucose 178 (H) 60 - 99 [place] mg/dL [facility] Urea Nitrogen 18 7 - 30 [place] mg/dL [facility] Creatinine 0.95 0.66 - [place] 1.25 mg/dL [facility] GFR Estimate 80 >60 [place] mL/min/1.[address] LAB GFR Estimate If >90 >60 [place] Black mL/min/1.[address] LAB Calcium 9.1 8.5 - 10.4 [place] mg/dL [facility] Specimen Anatomical Collection Method Collection Time Receive d Time (Source) Location / / Volume Laterality Blood specimen 06/20/2011 11:00 1 (specimen) AM CDT 11:18 AM CDT Lexa De León MD LAB - BLOOD ORDERABLES Performing Organization Address City/State/ZIP Code Phon e Number [facility] [address], [place] [address] [facility] (ABNORMAL) CBC with platelets differential (06/20/2011 11:00 AM CDT) Patholo gist Method Time Signature WBC 6.7 4.0 - [place] 11.0 [facility] 10e9/L [facility] RBC Count 4.84 4.4 - 5.9 [place] 10e12/L [facility] Hemoglobin 16.0 13.3 - [place] 17.7 g/dL [facility] Hematocrit 47.2 40.0 - [place] 53.0 % [facility] MCV 98 78 - 100 [facility] LAB MCH 33.1 (H) 26.5 - [facility] 33.0 pg [facility] MCHC 33.9 31.5 - [facility] 36.5 g/dL [facility] RDW 12.2 10.0 - [place] 15.0 % [facility] Platelet Count 182 150 - 450 [place] 10e9/L [facility] Diff Method Automated [facility] LAB % Neutrophils 64.2 40 - 75 % [facility] % Lymphocytes 20.1 20 - 48 % [facility] % Monocytes 10.4 0 - 12 % [facility] % Eosinophils 4.7 0 - 6 % [facility] % Basophils 0.3 0 - 2 % [facility] % Immature 0.3 0 - 0.4 % [place] Granulocytes [facility] Absolute 4.3 1.6 - 8.3 [place] Neutrophil 10e9/L [facility] Absolute 1.3 0.8 - 5.3 [place] Lymphocytes 10[facility] Absolute 0.7 0.0 - 1.3 [place] Monocytes 10e9/L [facility] Absolute 0.3 0.0 - 0.7 [place] Eosinophils 10e9/L [facility] Absolute 0.0 0.0 - 0.2 [place] Basophils 10e9/L [facility] Abs Immature 0.0 0 - 0.03 [place] Granulocytes [address] [place] [address] LAB Specimen Anatomical Collection Method Collection Time Receive d Time (Source) Location / / Volume Laterality Blood specimen 06/20/2011 11:00 1 (specimen) AM CDT 11:18 AM CDT Lexa De León MD LAB - BLOOD ORDERABLES Performing Organization Address City/State/ZIP Code Phon e Number [facility] [address], [place] [address] [facility] EKG 12-lead, tracing only (06/20/2011 9:07 AM CDT) Component Value Ref Range Test Analysis Performed Pathologis t Method Time At Signature Ventricular Rate 60 BPM RADIOLOGY RESULTS Atrial Rate 60 BPM RADIOLOGY RESULTS WI Interval 196 ms RADIOLOGY RESULTS QRS Duration 90 ms RADIOLOGY RESULTS QT 416 ms RADIOLOGY RESULTS QTc 416 ms RADIOLOGY RESULTS P [place] 44 degrees RADIOLOGY RESULTS R AXIS 17 degrees RADIOLOGY RESULTS T [place] 64 degrees RADIOLOGY RESULTS Interpretation Sinus rhythm [...] Coronary atherosclerosis of unspecified type of vessel, [place] or graft documented in this encounter Administered [...] 1245 documented in this encounter Care Teams Windows Support Engineer Relationship Specialty Start Date End Date Andrey Tamez MD PCP - General 03/26/09 documented as of this encounter
--- OUTSIDE RECORDS SUMMARY | 2022-07-28 08:07 | XMS_ITS | Encounter Summary ---
:1945 Author Organization [place] Address [address] [place] [address] Care Team Providers Name Role Phone Andrey Tamez MD Primary Care Provider Reason for Visit Auth/Cert - Closed Specialty Diagnoses / Procedures Referred By Contact Refer red To Contact Gastroenterology Diagnoses screening colonosopy Endoscopy Procedures COLONOSCOPY [address] [place] [address] Phone: Fax: Referral ID Status Reason Start Date Expiration Date Visits Requ ested Visits Authorized [id number] Closed 10/06/2011 04/03/2012 1 1 Encounter Details Date Type Department Care Team Description 10/26/2011 Surgery [facility] Endoscopy Nicolas Nuno MD Colonoscopy [facility] [address] [facility] [address] [place] [address] [place] [address] [phone] (Wo rk) Surgery Details Date/Time Status Location OR Service Patient Class Case Case Trauma Class Type Case? 10/26/11 Posted GI GI C Gastroenterology Outpatient 10:00 AM Panel 1 Procedure LRB Anes Op Region Wound Class Commen ts Colonoscopy N/A Conscious Sedation Rectum II-Clean Contami nated Colonoscopy Surgeon Surgeon Role Service Panel Nicolas Cook MD Primary Gastroenterology 1 Special Needs Referring: [place] BD letter documented in this encounter Social History Tobacco Use Types Packs/Day Years Used Date Smoking Tobacco: Former Cigarettes 0.5 16 Quit : 09/06/1978 Smokeless Tobacco: Never Alcohol Use Standard Drinks/Week Comments Yes 10 (1 standard drink = 0.6 oz pure alcoh ol) A drink every 1-2 weeks. 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 Last Filed Vital Signs Vital Sign Reading Time Taken Comments Blood Pressure 130/82 10/26/2011 10:30 AM RETAIL SALES TEAMMATE Pulse - - Temperature - - Respiratory Rate 16 10/26/2011 10:25 AM RETAIL SALES TEAMMATE Oxygen Saturation 91% 10/26/2011 10:30 AM RETAIL SALES TEAMMATE Inhaled Oxygen Concentration - - Weight 80.3 kg (177 lb) 10/26/2011 9:55 AM RETAIL SALES TEAMMATE Height 177.8 cm (5' 10) 10/26/2011 9:55 AM RETAIL SALES TEAMMATE Body Mass Index 25.4 10/26/2011 9:55 AM RETAIL SALES TEAMMATE documented in this encounter Medications at Time [...] 10/26/2011 10:49 AM CST See Provation note [place] SALES TEAMMATE documented in this encounter Plan of Treatment Not on filedocumented as of this encounter Procedures Procedure Name Priority Date/Time Associated Diagnosis Comme nts COLONOSCOPY 10/26/2011 10:03 AM RETAIL SALES TEAMMATE screening Special Needs Referring: [facility] guadalupe guaman COLONOSCOPY Routine 10/26/2011 9:59 AM RETAIL SALES TEAMMATE Resul ts for this procedure are in the results section . documented in this encounter Results COLONOSCOPY (10/26/2011 9:59 AM RETAIL SALES TEAMMATE) [facility] Method Time Signature COLONOSCOPY [facility] RAD IOLOGY RESULTS Patient Name: Rodolfo [...] / / Volume Laterality 10/26/2011 9:59 AM RETAIL SALES TEAMMATE Andrey Tamez MD PROCEDURES Performing Organization Address City/State/ZIP Code Phon e Number RADIOLOGY RESULTS documented in this encounter Visit Diagnoses Not on filedocumented in this encounter Administered Medications Inactive Administered Medications - up to 3 most recent administrations Medication Order MAR Action Action Date Dose Rate Site fentanyl (SUBLIMAZE) injection Given 10/26/2011 10:29 AM RETAIL SALES TEAMMATE 100 mcg PRN, moderate to severe pain, Starting on 10/26/11 at 1029, Intra-procedure midazolam (VERSED) injection Given 10/26/2011 10:29 AM RETAIL SALES TEAMMATE 2 mg PRN, anxiety, Starting on 10/26/11 at 1029, Intra-procedure documented in this encounter Active and Recently Administered Medications Times are shown in RETAIL SALES TEAMMATE. PRN Medication Order 10/24/2011 10/25/2011 10/26/2011 fentanyl (SUBLIMAZE) injection (CANCELED) 1029 (Given - Provider: Lina Pablo, RN) PRN, moderate to severe pain, Starting 10/26/11 at 1029, Intr a-procedure midazolam (VERSED) injection (CANCELED) 1029 (Given - Provider: Lina Pablo RN) PRN, anxiety, Starting 10/26/11 at 1029, Intra-procedure documented in this encounter Care Teams Petal Cutter Relationship Specialty Start Date End Date Andrey Tamez MD PCP - General 03/26/09 documented as of this encounter
--- OUTSIDE RECORDS SUMMARY | 2022-07-28 08:07 | XMS_ITS | Encounter Summary ---
:1945 Author Organization [place] Address [address] [place] [address] Care Team Providers Name Role Phone Andrey Tamez MD Primary Care Provider Reason for Visit Reason Onset Date Comments Patient Inquiry 09/01/2011 wants ABX Encounter Details Date Type Department Care Team Description 09/01/2011 Telephone [facility] Andrey Tamez MD Patient Inquiry (wants Clinic [place] [address] ABX) [address] [place] [address] [place] [address] [place], [place] [phone] (Wo rk) [address] [phone] Social History Tobacco Use Types Packs/Day Years Used Date Smoking Tobacco: Former Cigarettes 0.5 16 Quit : 09/06/1978 Alcohol Use Standard Drinks/Week Comments Yes 10 (1 standard drink = 0.6 oz pure alcoh ol) A drink every 1-2 weeks. 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 TOR INTERNAL Telephone Encounter - Rishabh Spencer MD - 09/01/2011 10:06 AM CST Please call and notify pt that prescription faxed to the pharmacy.Thanks! TOR INTERNAL Telephone Encounter - WalterLaquita - 09/01/2011 9:46 AM CST Dashawn pt [...] prefer him to schedule appt. Please advise. TOR INTERNAL documented in this encounter Plan of Treatment Not on filedocumented as of this encounter Visit Diagnoses Diagnosis Cough with sputum - Primary Cough documented in this encounter Care Teams Automatic Grinder Operator Relationship Specialty Start Date End Date Andrey Tamez MD PCP - General 03/26/09 documented as of this encounter
--- OUTSIDE RECORDS SUMMARY | 2022-07-28 08:07 | XMS_ITS | Encounter Summary ---
:1945 Author Organization [place] Address [address] [place] [address] Care Team Providers Name Role Phone Andrey Tamez MD Primary Care Provider Andrey Tamez MD Unavailable Andrey Tamez MD Unavailable Reason for Visit Reason Onset Date Comments Pending Orders/need approval 03/21/2012 LAB ORDERS Encounter Details Date Type Department Care Team Description 03/21/2012 Telephone [facility] Andrey Tamez MD Pending Orders/need Clinic [place] [address] good roval (LAB ORDERS) Laboratory [address] [place] [address] [place], [place] [phone] (Wo rk) [address] [phone] Social History Tobacco Use Types Packs/Day Years Used Date Smoking Tobacco: Former Cigarettes 0.5 16 Quit : 09/06/1978 Smokeless Tobacco: Never Alcohol Use Standard Drinks/Week Comments Yes 10 (1 standard drink = 0.6 oz pure alcoh ol) A drink every 1-2 weeks. 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 encounter Plan of Treatment Not on filedocumented as of this encounter Visit Diagnoses Diagnosis Type 2 diabetes, HbA1C goal < 8% (H) - P rimary Type II or unspecified type diabetes vijaya litus without mention of complication, not stated as uncontrolled documented in this encounter Care Teams Tool Maker Apprentice Relationship Specialty Start Date End Date Andrey Tamez MD PCP - General 03/26/09 Andrey Tamez MD PCP - Assigned PCP 09/11/12 11/08/18 [address] [place], [place] [address] Andrey Tamez MD Assigned PCP 09/11/12 09/07/20 [address] [place], [place] [address] documented as of this encounter
--- OUTSIDE RECORDS SUMMARY | 2022-07-28 08:07 | XMS_ITS | Encounter Summary ---
:1945 Author Organization [place] Address [address] [place] [address] Care Team Providers Name Role Phone Andrey Tamez MD Primary Care Provider Reason for Visit Reason Onset Date Comments Refill Request 06/10/2010 fax to [facility] Encounter Details Date Type Department Care Team Description 06/10/2010 Refill [facility] Andrey Tamez MD Refill Request (fax to [facility] [place] [address] [employer]) [address] [place], [place] [phone] Social History Tobacco Use Types Packs/Day Years Used Date Smoking Tobacco: Former Cigarettes 0.5 16 Quit : 09/06/1978 Alcohol Use Standard Drinks/Week Comments Yes 10 (1 standard drink = 0.6 oz pure alcoh ol) A drink every 1-2 weeks. 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 Confirmed this with pt and Dr Tamez. Rx printed with bid dosing and left at front receptionist secretary dsk for pt to p/u. Message handled by Nurse Triage with [facility]. documented in this encounter Plan of Treatment Not on filedocumented as of this encounter Visit Diagnoses Diagnosis TIA (transient ischaemic attack) - Prima ry Unspecified transient cerebral ischemia documented in this encounter Care Teams Supervisor Respiratory Relationship Specialty Start Date End Date Andrey Tamez MD PCP - General 03/26/09 documented as of this encounter
--- OUTSIDE RECORDS SUMMARY | 2022-07-28 08:07 | XMS_ITS | Encounter Summary ---
:1945 Author Organization [place] Address [address] [place] [address] Care Team Providers Name Role Phone Andrey Tamez MD Primary Care Provider Andrey Tamez MD Unavailable Andrey Tamez MD Unavailable Reason for Visit Reason Onset Date Comments Orders 10/10/2012 LAB ORDERS Encounter Details Date Type Department Care Team Description 10/10/2012 [facility] Andrey Tamez MD Orders (LAB ORDERS) Clinic [place] [address] [facility] Laboratory [address] [place] [address] [place], [place] [phone] (Wo rk) [phone] Social History Tobacco Use Types Packs/Day Years Used Date Smoking Tobacco: Former Cigarettes 0.5 16 Quit : 09/06/1978 Smokeless Tobacco: Never Alcohol Use Standard Drinks/Week Comments Yes 10 (1 standard drink = 0.6 oz pure alcoh ol) A drink every 1-2 weeks. 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 Plan of Treatment Not on filedocumented as of this encounter Visit Diagnoses Diagnosis Type 2 diabetes, HbA1C goal < 8% (H) - P rimary Type II or unspecified type diabetes vijaya litus without mention of complication, not stated as uncontrolled documented in this encounter Care Teams Security Installer Relationship Specialty Start Date End Date Andrey Tamez MD PCP - General 03/26/09 Andrey Tamez MD PCP - Assigned PCP 09/11/12 11/08/18 [address] [place], [place] [phone] Andrey Tamez MD Assigned PCP 09/11/12 09/07/20 [address] [place], [place] [id number] documented as of this encounter
--- OUTSIDE RECORDS SUMMARY | 2022-07-28 08:07 | XMS_ITS | Encounter Summary ---
:1945 Author Organization [place] Address [address] [place] [address] Care Team Providers Name Role Phone Andrey Tamez MD Primary Care Provider Reason for Visit Reason Comments Pain c/o intermitten dull pain in R side chest under armpit x10 days. Hx of cold sx x1 months. On ABX. Encounter Details Date Type Department Care Team Description 09/08/2011 Office Visit [facility] Noris Llamas of [facility] [place] TIERRA [facility], [address] not elsewhere [place], [place] ([place] [address] Dx) [phone] Social History Tobacco Use Types Packs/Day Years Used Date Smoking Tobacco: Former Cigarettes 0.5 16 Quit : 09/06/1978 Smokeless Tobacco: Never Alcohol Use Standard Drinks/Week Comments Yes 10 (1 standard drink = 0.6 oz pure alcoh ol) A drink every 1-2 weeks. 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 Last Filed Vital Signs Vital Sign Reading Time Taken Comments Blood Pressure 142/88 09/08/2011 7:33 AM PHYSICIANS ASSISTANT Pulse 56 09/08/2011 7:33 AM PHYSICIANS ASSISTANT Temperature 36.6 ??C (97.9 ??F) 09/08/2011 7:33 AM PHYSICIANS ASSISTANT Respiratory Rate 20 09/08/2011 7:33 AM PHYSICIANS ASSISTANT Oxygen Saturation - - Inhaled Oxygen Concentration - - Weight 80.5 kg (177 lb 8 oz) 09/08/2011 7:33 AM PHYSICIANS ASSISTANT Height 177.8 cm (5' 10) 09/08/2011 7:33 AM PHYSICIANS ASSISTANT Body Mass Index 25.47 09/08/2011 7:33 AM PHYSICIANS ASSISTANT documented in this encounter Patient Instructions Patient InstructionsNoris Llamas NP - 09/08/2011 7:50 AM CST Continue levaquin Monitor sputum color and any fevers Noris Llamas CNP ICIANS ASSISTANT documented in this encounter Progress Notes Noris [...] to improve as anticipated. Noris Llamas CNP ICIANS ASSISTANT documented in this encounter Nursing Notes 09/08/2011 [...] Primary documented in this encounter Care Teams Airborne Electronics Analyst Relationship Specialty Start Date End Date Andrey Tamez MD PCP - General 03/26/09 documented as of this encounter
--- OUTSIDE RECORDS SUMMARY | 2022-07-28 08:07 | XMS_ITS | Encounter Summary ---
:1945 Author Organization [place] Address [address] [place] [address] Care Team Providers Name Role Phone Andrey Tamez MD Primary Care Provider Reason for Visit Reason Onset Date Comments Patient Inquiry 10/21/2011 need to stop plavix prior to procedure? Encounter Details Date Type Department Care Team Description 10/21/2011 Telephone [facility] Andrey Tamez MD Patient Inquiry (need Clinic [place] [address] to stop plavix prior [address] [place] [address] [address] to procedure?) [place] [address] [place], [place] [phone] (Wo rk) [address] [phone] Social History Tobacco Use Types Packs/Day Years Used Date Smoking Tobacco: Former Cigarettes 0.5 16 Quit : 09/06/1978 Smokeless Tobacco: Never Alcohol Use Standard Drinks/Week Comments Yes 10 (1 standard drink = 0.6 oz pure alcoh ol) A drink every 1-2 weeks. 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 Pt states that he will stop plavix starting today. ER GOODS INSPECTOR TESTER Telephone Encounter - Andrey Tamez MD - 10/21/2011 3:42 PM CST Stop Plavix 7 days prior to procedure. Please advise pt. ER GOODS INSPECTOR TESTER Telephone Encounter - Laquita Walter - 10/21/2011 2:55 PM CST Pt is scheduled to have colonoscopy on Wednesday and needs to know when to stop plavix? Please advise. ER GOODS INSPECTOR TESTER documented in this encounter Plan of Treatment Not on filedocumented as of this encounter Visit Diagnoses Not on filedocumented in this encounter Care Teams Teletype Clerk Relationship Specialty Start Date End Date Andrey Tamez MD PCP - General 03/26/09 documented as of this encounter
--- OUTSIDE RECORDS SUMMARY | 2022-07-28 08:07 | XMS_ITS | Encounter Summary ---
:1945 Author Organization [place] Address [address] [place] [address] Care Team Providers Name Role Phone Andrey Tamez MD Primary Care Provider Encounter Details Date Type Department Care Team Description 02/12/2011 Orders Only [facility] Clinic Typ e 2 diabetes, HbA1C [facility] goal < 8% (H) [address] [place] [address] Social History Tobacco Use Types Packs/Day Years Used Date Smoking Tobacco: Former Cigarettes 0.5 16 Quit : 09/06/1978 Alcohol Use Standard Drinks/Week Comments Yes 10 (1 standard drink = 0.6 oz pure alcoh ol) A drink every 1-2 weeks. 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 The NCEP recommends further evaluation of: patients with cholesterol greater than 200 mg/dL if additional risk facto rs are present, cholesterol greater than 240 mg/dL, triglycerides greater than 1 50 mg/dL, or HDL less than 40 mg/dL. Triglycerides 98 0 - 150 mg/dL [facility] LAB HDL Cholesterol 34 (L) 40 - 110 mg/dL [facility] LDL Cholesterol Calculated 62 0 - 129 mg/dL [facility] LAB Comment: LDL Cholesterol is the primary guide to therapy: LDL-cholesterol goal in high risk patients is <100 mg/dL and in very high risk patients is <70 mg/dL. VLDL-Cholesterol 20 0 - 30 mg/dL [facility] LAB Cholesterol/HDL Ratio 3.4 0.0 - 5.0 [facility] LAB Specimen Anatomical Collection Method Collection Time Receive d Time (Source) Location / / Volume Laterality Blood specimen 02/12/2011 8:22 AM 011 8:27 (specimen) CDT AM CDT Andrey Tamez MD LAB - BLOOD ORDERABLES Performing Organization Address City/[facility]/ZIP Code Phon e Number [address] [address] [facility] LAB (ABNORMAL) Hemoglobin A1c (02/12/2011 8:22 AM CDT) athologist Signature Hemoglobin A1C 8.1 (H) 4.3 - 6.0 [facility] LAB Specimen Anatomical Collection Method Collection Time Receive d Time (Source) Location / / Volume Laterality Blood specimen 02/12/2011 8:22 AM 011 8:27 (specimen) CDT AM CDT Andrey Tamez MD LAB - BLOOD ORDERABLES Performing Organization Address City/[facility]/ZIP Code Phon e Number [facility] [address] [place], [place] [address] [address] [facility] LAB (ABNORMAL) Comprehensive metabolic panel (02/12/2011 8:22 AM CDT) P athologist Signature Sodium 139 133 - 144 [place] mmol/L [facility] LAB Potassium 4.8 3.4 - 5.3 [place] mmol/L [facility] Chloride 103 94 - 109 [place] mmol/L [facility] Carbon Dioxide 24 20 - 32 [place] mmol/L [facility] Anion Gap 12 6 - 17 [place] mmol/L [facility] Glucose 140 (H) 60 - 99 [place] mg/dL [facility] Urea Nitrogen 23 7 - 30 [place] mg/dL [facility] Creatinine 1.12 0.66 - [place] 1.25 mg/dL [facility] LAB GFR Estimate 66 >60 [place] mL/min/1.7 [facility] m2 LAB GFR Estimate If 80 >60 [facility] mL/min/1.7 [facility] m2 LAB Calcium 9.2 8.5 - 10.4 [place] mg/dL [facility] LAB Bilirubin Total 0.8 0.2 - 1.3 [place] mg/dL [facility] Albumin 4.0 3.3 - 4.9 [place] g/dL [facility] LAB Comment: Reference range changed on 05/08. Protein Total 6.7 (L) 6.8 - 8.8 g/dL [facility] LAB Comment: As of 08, reference range reflects plasma specimen type. Alkaline Phosphatase 72 40 - 150 U/L [facility] LAB ALT 20 0 - 70 U/L [facility] CLIN IC LAB AST 20 0 - 55 U/L [facility] LAB Specimen Anatomical Collection Method Collection Time Receive d Time (Source) Location / / Volume Laterality Blood specimen 02/12/2011 8:22 AM 011 8:27 (specimen) CDT AM CDT Andrey Tamez MD LAB - BLOOD ORDERABLES Performing Organization Address City/State/ZIP Code Phon e Number [facility] [address] [place] [address] [facility] documented in this encounter Visit Diagnoses Diagnosis Type 2 diabetes, HbA1C goal < 8% (H) Type II or unspecified type diabetes vijaya litus without mention of complication, not stated as uncontrolled documented in this encounter Care Teams Landscape Nurseryman Relationship Specialty Start Date End Date Andrey Tamez MD PCP - General 03/26/09 documented as of this encounter
--- OUTSIDE RECORDS SUMMARY | 2022-07-28 08:07 | XMS_ITS | Encounter Summary ---
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 documented as of this encounter Last Filed Vital Signs Vital Sign Reading Time Taken Comments Blood Pressure 122/82 10/19/2012 9:37 AM APPLIED SCIENCE AND TECHNOLOGIES DEAN Pulse 64 10/19/2012 9:37 AM APPLIED SCIENCE AND TECHNOLOGIES DEAN Temperature 36.3 ??C (97.3 ??F) 10/19/2012 9:37 AM APPLIED SCIENCE AND TECHNOLOGIES DEAN Respiratory Rate - - Oxygen Saturation 97% 10/19/2012 9:37 AM APPLIED SCIENCE AND TECHNOLOGIES DEAN Inhaled Oxygen Concentration - - Weight 80.6 kg (177 lb 12.8 oz) 10/19/2012 9:37 AM APPLIED SCIENCE AND TECHNOLOGIES DEAN Height 174.6 cm (5' 8.75) 10/19/2012 9:37 AM APPLIED SCIENCE AND TECHNOLOGIES DEAN Body Mass Index 26.45 10/19/2012 9:37 AM APPLIED SCIENCE AND TECHNOLOGIES DEAN documented in this encounter Patient Instructions Patient InstructionsAndrey Tamez MD - 10/19/2012 9:49 AM CST Everything looks fine! Morning fasting (pre-breakfast) glucoses should run below 130, otherwise call me. Refills of medications have been faxed to your pharmacy. Return for a fasting lab only appointment in six months (April 2013) See you in a year, sooner if problems. IED SCIENCE AND TECHNOLOGIES DEAN documented in this encounter Progress Notes Andrey [...] year, sooner if problems. Andrey Tamez MD [employer] SCIENCE [employer] TECHNOLOG[employer] DEAN documented in this encounter Nursing Notes 10/19/2012 9:30 AM CST >> MYRIAMNikos CHIN [facility] Oct 19, 2012 9:39 AM [...] Coronary atherosclerosis of unspecified type of vessel, benton or graft Presence of stent in anterior [...] organs documented in this encounter Care Teams Clerical Aide Relationship Specialty Start Date End Date Andrey Tamez MD PCP - General 03/26/09 Andrey Tamez MD PCP - Assigned PCP 09/11/12 11/08/[address] [place] [address] Andrey Tamez MD Assigned PCP 09/11/12 09/07/[address] [place] [address] documented as of this encounter
--- OUTSIDE RECORDS SUMMARY | 2022-07-28 08:08 | XMS_ITS | Encounter Summary ---
:1945 Author Organization [place] Address [address] [place] [address] Care Team Providers Name Role Phone Andrey Tamez MD Primary Care Provider Reason for Visit Reason Onset Date Comments Refill Request 02/07/2010 plavix and vytorin Encounter Details Date Type Department Care Team Description 02/07/2010 Refill [facility] Andrey Tamez MD Refill Request (plavix [facility] [place] [address] and vytorin) [address] [place] [address] [place] [address] [place], [place] [phone] (Wo rk) [address] [phone] Social History Tobacco Use Types Packs/Day Years Used Date Smoking Tobacco: Former Cigarettes 0.5 16 Quit : 09/06/1978 Alcohol Use Standard Drinks/Week Comments Yes 10 (1 standard drink = 0.6 oz pure alcoh ol) 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 Also sent Nurse[employer] message to remind pt that he is due for o/v. Cynthia Triana RN documented in this encounter Plan of Treatment Not on filedocumented as of this encounter Visit Diagnoses Diagnosis TIA (transient ischaemic attack) Unspecified transient cerebral ischemia Other and unspecified hyperlipidemia CAD (coronary artery disease) Coronary atherosclerosis of unspecified type of vessel, gal[place] or graft documented in this encounter Care Teams Manager Loss Prevention Relationship Specialty Start Date End Date Andrey Tamez MD PCP - General 03/26/09 documented as of this encounter
--- OUTSIDE RECORDS SUMMARY | 2022-07-28 08:08 | XMS_ITS | Encounter Summary ---
:1945 Author Organization [place] Address [address] [place] [address] Care Team Providers Name Role Phone Bailey Doran MD Primary Care Provider Encounter Details Date Type Department Care Team Description 08/09/[address] 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 HCL TRIGLYCERIDES Routine 08/09/2008 DIAGNOSIS NOT YET Resul ts for this DEFINED procedure are i n the results section . HCL ALT Routine 08/09/2008 DIAGNOSIS NOT YET Results fo r this DEFINED procedure are i n the results section . HCL HDL CHOLESTEROL Routine 08/09/2008 DIAGNOSIS NOT YET Res ults for this DEFINED procedure are i n the results section . HCL CHOLESTEROL Routine 08/09/2008 DIAGNOSIS NOT YET Results for this DEFINED procedure are i n the results section . documented in this encounter Results TRIGLYCERIDES [[id number]] (08/09/2008) P athologist Signature Triglycerides 152@ mg/dL [facility] Provider Abstract LABORATORY Performing Organization Address City/State/ZIP Code Phon e Number [facility] HDL CHOLESTEROL [47982.000] (08/09/2008) P athologist Signature HDL Cholesterol 47@ mg/dL [facility] Provider Abstract LABORATORY Performing Organization Address City/State/ZIP Code Phon e Number [facility] LDL-CHOLESTEROL [92562.001] (08/09/2008) P athologist Signature LDL Cholesterol 76@ mg/dL [facility] Calculated Provider Abstract LABORATORY Performing Organization Address City/State/ZIP Code Phon e Number [facility] CHOLESTEROL [25675.000] (08/09/2008) P athologist Signature Cholesterol 153@ 115 - 199 [facility] mg/dL Provider Abstract LABORATORY Performing Organization Address City/State/ZIP Code Phon e Number [facility] ALT [35729.000] (08/09/2008) P athologist Signature ALT 24@ U/L [facility] Provider Abstract LABORATORY Performing Organization Address City/State/ZIP Code Phon e Number [facility] documented in this encounter Visit Diagnoses Diagnosis DIAGNOSIS NOT YET DEFINED documented in this encounter Care Teams Sewer Bricklayer Relationship Specialty Start Date End Date Bailey Doran MD PCP - General 09/20/00 03/25/[address], [address] [place] [address] documented as of this encounter
--- OUTSIDE RECORDS SUMMARY | 2022-07-28 08:08 | XMS_ITS | Encounter Summary ---
:1945 Author Organization [place] Address [address] [place] [address] Care Team Providers Name Role Phone Andrey Tamez MD Primary Care Provider Reason for Referral Referral not Required - Closed Specialty Diagnoses / Procedures Referred By Contact Refer red To Contact Diagnoses Screening exam for skin cancer Andrey Tamez MD UNKNOWN- [address] [place] [address] Referral ID Status Reason Start Date Expiration Date Visits Requ ested Visits Authorized [id number] Closed 10/09/2009 09/05/2011 1 1 MOBILE PARKER Reason for Visit Reason Onset Date Comments Referral 10/09/2009 dermatology Encounter Details Date Type Department Care Team Description 10/09/[address] 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 Referral placed, and copy given to pt. MOBILE PARKER documented in this encounter Plan of Treatment Not on filedocumented as of this encounter Visit Diagnoses Diagnosis Screening exam for skin cancer - Primary Screening for malignant neoplasm of the skin documented in this encounter Care Teams Manager Merchandise Relationship Specialty Start Date End Date Andrey Tamez MD PCP - General 03/26/09 documented as of this encounter
--- OUTSIDE RECORDS SUMMARY | 2022-07-28 08:08 | XMS_ITS | Encounter Summary ---
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 documented as of this encounter Progress Notes Lina Morse, GRAIN BLENDER - 11/23/2010 6:12 PM CDT Discharge Summary - Reason for Discharge Discharge from facility, to home on 04/13/08 - Progress toward Goals partially met achieving short term goals/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
--- OUTSIDE RECORDS SUMMARY | 2022-07-28 08:08 | XMS_ITS | Encounter Summary ---
:1945 Author Organization [place] Address [address] [place] [address] Care Team Providers Name Role Phone Andrey Tamez MD Primary Care Provider Reason for Visit Reason Comments Physical Encounter Details Date Type Department Care Team Description 06/10/2010 Office Visit [facility] Andrey Tamez MD Routine general medical examination at a health care facility (Primary Dx); [facility] [place] [address] Other and unspecified hyperl ipidemia; [address] CAD (coronary artery disease); [place], [place] TIA (transient ischaemic att ack); [place] [address] DIABETES UNCOMPL ADULT-TYPE II; [id number] Erectile dysfunction [phone] Social History Tobacco Use Types Packs/Day Years Used Date Smoking Tobacco: Former Cigarettes 0.5 16 Quit : 09/06/1978 Alcohol Use Standard Drinks/Week Comments Yes 10 (1 standard drink = 0.6 oz pure alcoh ol) A drink every 1-2 weeks. 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 Please set up a routine appointment to [...] and documented If studies done outside of [facility], have pt sign SARAH. Pend orders for studies not done. GAURAV Mg documented in this encounter Plan of Treatment Not on filedocumented as of this encounter Procedures Procedure Name Priority Date/Time Associated Diagnosis Comme nts HC CHEST TWO VIEWS, Routine 06/10/2010 10:01 Routine general R esults for this FRONT/LAT AM CDT medical examination at [facility] are in a health care fa cility the results DIABETES UNCOMPL section. ADULT-TYPE II HCL LIPID PANEL, Routine 06/10/2010 9:34 Other and unspecified Results for this REFLEX TO DIRECT LDL AM CDT hyperlipide johan procedure are in DIABETES UNCOMPL the results ADULT-TYPE II section. CL AFF CBC WITH Routine 06/10/2010 9:34 Routine general Result s for this PLATELETS AM CDT medical examination at [facility] are in a health care fa cility the results DIABETES UNCOMPL section. ADULT-TYPE II Other and unspecified hyperlipidemia HCL PROSTATE SPEC Routine 06/10/2010 9:34 Routine general Resu lts for this ANTIGEN,SCREEN AM CDT medical examination at [facility] are in a health care fa cility the results DIABETES UNCOMPL section. ADULT-TYPE II HCL COMPREHENSIVE Routine 06/10/2010 9:34 Routine general Resu lts for this METABOLIC PANEL AM CDT medical examination at [facility] are in a health care fa cility the results DIABETES UNCOMPL section. ADULT-TYPE II Other and unspecified hyperlipidemia HCL TSH W/FREE T4 Routine 06/10/2010 9:34 Routine general Resu lts for this REFLEX AM CDT medical examination at [facility] are in a health care fa cility the results DIABETES UNCOMPL section. ADULT-TYPE II Other and unspecified hyperlipidemia HCL GLYCATED Routine 06/10/2010 9:34 DIABETES UNCOMPL Results for this HEMOGLOBIN AM CDT ADULT-TYPE II procedure are in Routine general the results medical examination at [facility] on. a health care fa cility [...] Hemoglobin A1C 8.0 (H) 4.3 - 6.0 [facility] Specimen Anatomical Collection Method Collection Time Receive d Time (Source) Location / / Volume Laterality 06/10/2010 9:34 AM 0 9:39 CDT AM CDT Andrey Tamez MD LABORATORY Performing Organization Address City/State/ZIP Code Phon e Number [facility] [address] [place], [place] [address] [address] [address] [facility] (ABNORMAL) LIPID PANEL, REFLEX TO DIRECT LDL (06/10/2010 9:34 AM CDT) athologist Signature Cholesterol 134 0 - 200 [place] mg/dL CLINIC LAB Comment: LDL Cholesterol is the primary guide to therapy. The NCEP recommends further evaluation of: patients with cholesterol <200 mg/dL if additional risk factors are present, cholesterol >240 mg/dL, triglycerides >150 mg/dL, or HDL <40 mg/dL. Triglycerides 112 0 - 150 mg/dL [facility] HDL Cholesterol 37 (L) 40 - 110 mg/dL [facility] LDL Cholesterol Calculated 75 0 - 129 mg/dL [facility] Comment: LDL Cholesterol is the primary guide to therapy: LDL-cholesterol goal in high risk patients is <100 mg/dL and in very high risk patients is <70 mg/dL. VLDL-Cholesterol 22 0 - 30 mg/dL [facility] Cholesterol/HDL Ratio 3.6 0.0 - 5.0 [facility] Specimen Anatomical Collection Method Collection Time Receive d Time (Source) Location / / Volume Laterality 06/10/2010 9:34 AM 0 9:39 CDT AM CDT Andrey Tamez MD LABORATORY Performing Organization Address City/[facility]/ZIP Code Phon e Number [facility] [address] [place] [address] [facility] TSH W/FREE T4 REFLEX (06/10/2010 9:34 AM CDT) athologist Signature TSH 0.55 0.4 - 5.0 [facility] mU/L [facility] Specimen Anatomical Collection Method Collection Time Receive d Time (Source) Location / / Volume Laterality 06/10/2010 9:34 AM 0 9:39 CDT AM CDT Andrey Tamez MD LABORATORY Performing Organization Address City/State/ZIP Code Phon e Number [facility] [address] [place] [address] [facility] CBC WITH PLATELETS (06/10/2010 9:34 AM CDT) athologist Signature WBC 6.5 4.0 - 11.0 [place] 10e9/L [facility] RBC Count 4.78 4.4 - 5.9 [place] 10e12/L [facility] Hemoglobin 15.7 13.3 - [facility] 17.7 g/dL [facility] Hematocrit 47.0 40.0 - [facility] 53.0 % [facility] MCV 98 78 - 100 [place] fl [facility] MCH 32.8 26.5 - [facility] 33.0 pg [facility] MCHC 33.4 31.5 - [place] 36.5 g/dL [facility] RDW 12.0 10.0 - [facility] 15.0 % [facility] Platelet Count 193 150 - 450 [place] 10e9/L [facility] Specimen Anatomical Collection Method Collection Time Receive d Time (Source) Location / / Volume Laterality 06/10/2010 9:34 AM 0 9:39 CDT AM CDT Andrey Tamez MD LABORATORY Performing Organization Address City/State/ZIP Code Phon e Number [facility] [address] [place] [address] [address] [address] [facility] PROSTATE SPEC ANTIGEN,SCREEN (06/10/2010 9:34 AM CDT) athologist Signature PSA 1.96 0 - 4 ug/L [facility] Specimen Anatomical Collection Method Collection Time Receive d Time (Source) Location / / Volume Laterality 06/10/2010 9:34 AM 0 9:39 CDT AM CDT Andrey Tamez MD LABORATORY Performing Organization Address City/[facility]/ZIP Code Phon e Number [facility] [address] [place] [address] [facility] (ABNORMAL) A.M.A. COMPREHENSIVE MET.PANEL (06/10/2010 9:34 AM CDT) athologist Signature Sodium 140 133 - 144 [place] mmol/L [facility] Potassium 4.3 3.4 - 5.3 [place] mmol/L [facility] Chloride 100 94 - 109 [place] mmol/L [facility] Carbon Dioxide 26 20 - 32 [place] mmol/L [facility] Anion Gap 14 6 - 17 [place] mmol/L [facility] Glucose 165 (H) 60 - 99 [place] mg/dL [facility] Urea Nitrogen 18 7 - 30 [place] mg/dL [facility] Creatinine 1.12 0.66 - [facility] 1.25 mg/dL [facility] Comment: New IDMS-traceable calibration beginning 01/05/08 GFR Estimate 66 >60 mL/min/1.7m2 [place] [facility] GFR Estimate If Black 80 >60 mL/min/1.7m2 [facility] Calcium 8.9 8.5 - 10.4 mg/dL [facility] Bilirubin Total 0.8 0.2 - 1.3 mg/dL [facility] Albumin 4.1 3.3 - 4.9 g/dL [facility] Comment: Reference range changed on 05/08. Protein Total 6.7 (L) 6.8 - 8.8 g/dL [facility] Comment: As of 08, reference range reflects plasma specimen type. Alkaline Phosphatase 81 40 - 150 U/L [facility] ALT 29 0 - 70 U/L [facility] AST 24 0 - 55 U/L [facility] Specimen Anatomical Collection Method Collection Time Receive d Time (Source) Location / / Volume Laterality 06/10/2010 9:34 AM 0 9:39 CDT AM CDT Andrey Tamez MD LABORATORY Performing Organization Address City/State/ZIP Code Phon e Number [facility] [address] [place] [address] [facility] ELECTROCARDIOGRAM, COMP W/READ (06/10/2010) Narrative This result has an attachment that is no t available. Andrey Tamez MD EKG TECHNICAL documented in this encounter Visit Diagnoses Diagnosis Routine general medical examination at a health care facility - Primary Other and unspecified hyperlipidemia CAD (coronary artery disease) Coronary atherosclerosis of unspecified type of vessel, [place] or graft TIA (transient ischaemic attack) Unspecified transient cerebral ischemia DIABETES UNCOMPL ADULT-TYPE II Type II or unspecified type diabetes vijaya litus without mention of complication, not stated as uncontrolled Erectile dysfunction Impotence of organic origin documented in this encounter Care Teams Malted Milk Supervisor Relationship Specialty Start Date End Date Andrey Tamez MD PCP - General 03/26/09 documented as of this encounter
--- OUTSIDE RECORDS SUMMARY | 2022-07-28 08:08 | XMS_ITS | Encounter Summary ---
:1945 Author Organization [place] Address [address] [place] [address]. [place] [address] Care Team Providers Name Role Phone Andrey Tamez MD Primary Care Provider Bailey Doran MD Primary Care Provider Andrey Tamez MD Unavailable Andrey Tamez MD Unavailable Encounter Details Date Type Department Care Team Description 09/29/2007 Office Visit-[facility] Yazan Foreman [facility] Kemi Madsen MD [address] [place] [address] [place] [address] (Wo rk) Social History Tobacco Use Types Packs/Day Years Used Date Smoking Tobacco: Former Cigarettes 0.5 16 Quit : 09/06/1978 Alcohol Use Standard Drinks/Week Comments Yes 10 (1 standard drink = 0.6 oz pure alcoh ol) 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 Diabetes Mellitus-NIDD/circ dis/uncont, 250.72 5. W[place]-S/P Anterior, 412 6. PTCA-LAD FLORI stent 03/2005 [...] PAST HISTORY Past Medical Illnesses: hyperlipidemia, diabetes jtqeasom-dtc-twdxozn dependent, hypertension Past Cardiac Illnesses: chest pain, [...] Seat Belt Use - always; Occupation - [employer]; Residence - lives with ; Place of - [place]; Hours Worked - 40 hours per week; [...] excursion, no use of accessory muscles <FONT COLOR=#[id number]><FONT POINT=10> CARDIAC regular rhythm, S1 normal, S2 [...] 1 p.o. q.d. #30 Physician Order <FONT COLOR=#[id number]><FONT POINT=10> IMPRESSION/PLAN: 1. Coronary artery disease, status [...] appreciate seeing him again in a year.<FONT COLOR=#[id number]><FONT POINT=10> TODAYS ORDERS 1. F/U with Yazan Foreman MD 1 year 2. Treadmill Nuclear Study 1 year 3. Lipid profile/ALT 1 year Yazan Foreman M.D. documented in this encounter Plan of Treatment Not on filedocumented as of this encounter Visit Diagnoses Not on filedocumented in this encounter Care Teams Veterinary Milk Specialist Relationship Specialty Start Date End Date Andrey Tamez MD PCP - General 03/26/09 Bailey Doran MD PCP - General 09/20/00 03/25/[address], [facility] [address] [place] [address] Andrey Tamez MD PCP - Assigned PCP 09/11/12 11/08/18 [address] [place] [address] Andrey Tamez MD Assigned PCP 09/11/12 09/07/20 [address] [place] [address] documented as of this encounter
--- OUTSIDE RECORDS SUMMARY | 2022-07-28 08:08 | XMS_ITS | Encounter Summary ---
:1945 Author Organization [place] Address [address] [place] [address] Care Team Providers Name Role Phone Bailey Doran MD Primary Care Provider Encounter Details Date Type Department Care Team Description 04/12/2008 Emergency room [facility] Se zaid Lipscomb MD [facility] EMERGENCY [facility] Results [address] [place], [place] [address] (Wo rk) Social History Tobacco Use Types Packs/Day Years Used Date Smoking Tobacco: Former Cigarettes 0.5 16 Quit : 09/06/1978 Alcohol Use Standard Drinks/Week Comments Yes 10 (1 standard drink = 0.6 oz pure alcoh ol) 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 Coronary artery disease, status post HI and stent placement. 2. Hypercholesterolemia. 3. Hypertension. [...] but diminished throughout. Rapid alternating movements and jpxi-de-xfpw are within normal limits. Visual denton are [...] and examined. He was connected to the ekg monitor and pulse oximetry monitor. He had oxygen applied. He had an IV established, and bloods were drawn and sent. An EKG was obtained. He then went for an MRI/MRA of his head, neck and vessels which did show an acute infarct. He had a chest x-ray as well. After he returned from MRI he was given [id number] mg by mouth. PLAN: I subsequently spoke [...] EV#[id number] Name: RODOLFO HARTLEY MRN: -[id number] Account: [id number] : 1945 Visit Date: 04/12/2008 Document: [id number] cc: Tom Plasencia MD Primary Care Physician documented in this encounter Plan of Treatment Not on filedocumented as of this encounter Visit Diagnoses Not on filedocumented in this encounter Care Teams Home Appliance Installer Relationship Specialty Start Date End Date Bailey Doran MD PCP - General 09/20/00 03/25/09 [address] [facility] [address] [place] [address] documented as of this encounter
--- OUTSIDE RECORDS SUMMARY | 2022-07-28 08:08 | XMS_ITS | Encounter Summary ---
:1945 Author Organization [place] Address [address] [place] [address] Care Team Providers Name Role Phone Andrey Tamez MD Primary Care Provider Bailey Doran MD Primary Care Provider Andrey Tamez MD Unavailable Andrey Tamez MD Unavailable Encounter Details Date Type Department Care Team Description 08/09/2008 Historic Results [facility] Heart Unknown, [facility] ider [address] [address] Social History Tobacco Use Types Packs/Day Years Used Date Smoking Tobacco: Former Cigarettes 0.5 16 Quit : 09/06/1978 Alcohol Use Standard Drinks/Week Comments Yes 10 (1 standard drink = 0.6 oz pure alcoh ol) 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 Provider Scan IMG NM ORDERABLES documented in this encounter Visit Diagnoses Not on filedocumented in this encounter Care Teams Second Hand Relationship Specialty Start Date End Date Andrey Tamez MD PCP - General 03/26/09 Bailey Doran MD PCP - General 09/20/00 03/25/[address], [address] [place], [place] [id number] Andrey Tamez MD PCP - Assigned PCP 09/11/12 11/08/18 [address] [place], [place] [address] Andrey Tamez MD Assigned PCP 09/11/12 09/07/20 [address] [place], [place] [id number] documented as of this encounter
--- OUTSIDE RECORDS SUMMARY | 2022-07-28 08:08 | XMS_ITS | Encounter Summary ---
:1945 Author Organization [place] Address [address] [place] [address] Care Team Providers Name Role Phone Andrey Tamez MD Primary Care Provider Reason for Visit Reason Onset Date Comments Results 03/26/2009 lab Encounter Details Date Type Department Care Team Description 03/26/2009 Telephone [facility] Andrey Tamez MD Results (lab) [place] [address] [facility] [address] [place] [address] [place] [address] [phone] Social History Tobacco Use Types Packs/Day Years Used Date Smoking Tobacco: Former Cigarettes 0.5 16 Quit : 09/06/1978 Alcohol Use Standard Drinks/Week Comments Yes 10 (1 standard drink = 0.6 oz pure alcoh ol) 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
--- OUTSIDE RECORDS SUMMARY | 2022-07-28 08:08 | XMS_ITS | Encounter Summary ---
:1945 Author Organization [place] Address [address] [place] [address] Care Team Providers Name Role Phone Bailey Doran MD Primary Care Provider Encounter Details Date Type Department Care Team Description 04/12/2008 Admission H&P [facility] Scott Aggarwal (Stallion Keeper) Hospitalists MD [place] [address] [place] [address] [phone] Social History Tobacco Use Types Packs/Day Years Used Date Smoking Tobacco: Former Cigarettes 0.5 16 Quit : 09/06/1978 Alcohol Use Standard Drinks/Week Comments Yes 10 (1 standard drink = 0.6 oz pure alcoh ol) 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 CHIEF COMPLAINT: Slurred speech. HISTORY: Rodolfo Hartley is 62-year-old male with a history of coronary artery disease including acute myocardial infarction in 03/2005, status post proximal LAD stent with family history of heart disease including mother who had SD at age 50, prior history of diabetes, hypertension, hypercholesterolemia, peripheral neuropathy, who presents to [facility] after about a 30 minuteepisode of slurred speech and left facial droop. The patient works at [employer]. The patient walked over this afternoon over [...] were improving. The patient was brought to [facility] Emergency Department for further assessment. In the [...] he is . Occasional alcohol, works for [employer]. ALLERGIES: NO KNOWN DRUG ALLERGIES. MEDICATIONS: 1. [...] MD MT: ERICA Name: RODOLFO HARTLEY Account: [id number] : 1945 Admitted: [id number] Document: [id number] cc: Yazan Foreman MD, [facility] documented in this encounter Plan of Treatment Not on filedocumented as of this encounter Visit Diagnoses Not on filedocumented in this encounter Care Teams Event Av Operator Relationship Specialty Start Date End Date Bailey Doran MD PCP - General 09/20/00 03/25/[address] [place] [address] documented as of this encounter
--- OUTSIDE RECORDS SUMMARY | 2022-07-28 08:08 | XMS_ITS | Encounter Summary ---
:1945 Author Organization [place] Address [facility] [place] [address] Care Team Providers Name Role Phone Andrey Tamez MD Primary Care Provider Bailey Doran MD Primary Care Provider Encounter Details Date Type Department Care Team Description 04/13/2008 Historic Results [place] Scott Tiwari , Hospitalists [address] [place] [address] [phone] Social History Tobacco Use Types Packs/Day Years Used Date Smoking Tobacco: Former Cigarettes 0.5 16 Quit : 09/06/1978 Alcohol Use Standard Drinks/Week Comments Yes 10 (1 standard drink = 0.6 oz pure alcoh ol) 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 [address] [place] [address] documented as of this encounter
--- OUTSIDE RECORDS SUMMARY | 2022-07-28 08:08 | XMS_ITS | Encounter Summary ---
:1945 Author Organization [place] Address [address] [place] [address]. [place] [address] Care Team Providers Name Role Phone Andrey Tamez MD Primary Care Provider Bailey Doran MD Primary Care Provider Andrey Tamez MD Unavailable Andrey Tamez MD Unavailable Encounter Details Date Type Department Care Team Description 08/15/2008 Office Visit-[facility] Yazan Foreman [facility] Kemi Madsen MD [address] [place] [address] [place] [address] (Wo rk) Social History Tobacco Use Types Packs/Day Years Used Date Smoking Tobacco: Former Cigarettes 0.5 16 Quit : 09/06/1978 Alcohol Use Standard Drinks/Week Comments Yes 10 (1 standard drink = 0.6 oz pure alcoh ol) 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 DATE: 08/15/2008 RODOLFO HARTLEY DATE OF : 1945 AGE: [age] years old Referring Physician/Clinic: BRANDI CIFUENTES CURRENT DIAGNOSES 1. - CAD, 414.00 2. - Hyperlipidemia, 272.4 3. Cerebral Vascular Accident, 435.9 4. DE-S/P Anterior, 412 5. PTCA-LAD FLORI stent 03/2005 [...] PAST HISTORY Past Medical Illnesses: hyperlipidemia, diabetes ivegwbbl-yaw-wbatahu dependent, hypertension, CVA without residual deficits Past [...] Seat Belt Use - always; Occupation - [employer]; Residence - lives with ; Place of - [place]; Hours Worked - 40 hours per week; [...] on filedocumented in this encounter Care Teams Rat Breeder Relationship Specialty Start Date End Date Andrey Tamez MD PCP - General 03/26/09 Bailey Doran MD PCP - General 09/20/00 03/25/09 [address] , [address] [address] Andrey Tamez MD PCP - Assigned PCP 09/11/12 11/08/18 [address] [place] [address] Andrey Tamez MD Assigned PCP 09/11/12 09/07/20 [address] [place] [address] documented as of this encounter
--- OUTSIDE RECORDS SUMMARY | 2022-07-28 08:08 | XMS_ITS | Encounter Summary ---
:1945 Author Organization [place] Address [address] [place] [address] Care Team Providers Name Role Phone Bailey Doran MD Primary Care Provider Reason for Visit Reason Comments Establish Care Encounter Details Date Type Department Care Team Description 03/13/2009 Office Visit [facility] Andrey Tamez MD TIA (Transient Ischaemic Attack); [facility] [place] [address] CAD (Coronary Artery Disease ); [address] Other and Unspecified Hyperlipidemia; [place], [place] DIABETES UNCOMPL ADULT-TYPE II; [place] [address] Paresthesias, Distal [address] [phone] Social History Tobacco Use Types Packs/Day Years Used Date Smoking Tobacco: Former Cigarettes 0.5 16 Quit : 09/06/1978 Alcohol Use Standard Drinks/Week Comments Yes 10 (1 standard drink = 0.6 oz pure alcoh ol) 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 The patient had an TX about four years ago, treated with stenting. [...] Notes 03/13/2009 9:30 AM CDT >> GRADY REDE Wed Mar 13, 2009 9:44 AM Patient [...] - 11.0 [facility] 10e9/L [facility] RBC Count 4.75 4.4 - 5.9 [facility] 10e12/L [facility] Hemoglobin 15.7 13.3 - [facility] 17.7 g/dL [facility] Hematocrit 46.9 40.0 - [facility] 53.0 % [facility] MCV 99 78 - 100 [facility] fl [facility] MCH 33.1 (H) 26.5 - [facility] 33.0 pg [facility] MCHC 33.5 31.5 - [facility] 36.5 g/dL [facility] RDW 12.1 10.0 - [facility] 15.0 % [facility] Platelet Count 165 150 - 450 [place] 10e9/L [facility] Specimen Anatomical Collection Method Collection Time Receive d Time (Source) Location / / Volume Laterality 03/13/2009 11:20 03/13/2009 AM CDT 11:25 AM CDT Andrey Tamez MD LABORATORY Performing Organization Address City/State/ZIP Code Phon e Number [facility] [address] [place], [place] [address] [address] [facility] PROSTATE SPEC ANTIGEN,SCREEN (03/13/2009 11:10 AM CDT) athologist Signature PSA 1.66 0 - 4 ug/L [facility] Specimen Anatomical Collection Method Collection Time Receive d Time (Source) Location / / Volume Laterality 03/13/2009 11:10 03/13/2009 AM CDT 11:15 AM CDT Andrey Tamez MD LABORATORY Performing Organization Address City/State/ZIP Code Phon e Number [facility] [address] [place] [address] [facility] FOLATE, SERUM (03/13/2009 11:06 AM CDT) athologist Signature Folate 17.3 >3.3 ng/mL [facility] Comment: Interp: >5.4 ng/mL = Normal Specimen Anatomical Collection Method Collection Time Receive d Time (Source) Location / / Volume Laterality 03/13/2009 11:06 03/13/2009 AM CDT 11:11 AM CDT Andrey Tamez MD LABORATORY Performing Organization Address City/State/ZIP Code Phon e Number [facility] [address] [place] [address] [facility] VITAMIN B12, SERUM (03/13/2009 11:06 AM CDT) athologist Signature Vitamin B12 461 >210 pg/mL [facility] Comment: Interp: 247-911 = Normal Specimen Anatomical Collection Method Collection Time Receive d Time (Source) Location / / Volume Laterality 03/13/2009 11:06 03/13/2009 AM CDT 11:11 AM CDT Andrey Tamez MD LABORATORY Performing Organization Address City/State/ZIP Code Phon e Number [facility] [address] [place] [address] [facility] TSH W/FREE T4 REFLEX (03/13/2009 11:06 AM CDT) P athologist Signature TSH 0.93 0.4 - 5.0 [place] [facility] mU/L [facility] Specimen Anatomical Collection Method Collection Time Receive d Time (Source) Location / / Volume Laterality 03/13/2009 11:06 03/13/2009 AM CDT 11:11 AM CDT Andrey Tamez MD LABORATORY Performing Organization Address City/State/ZIP Code Phon e Number [facility] [address] [place] [address] [facility] AST (03/13/2009 11:06 AM CDT) P athologist Signature AST 23 0 - 55 U/L [facility] Specimen Anatomical Collection Method Collection Time Receive d Time (Source) Location / / Volume Laterality 03/13/2009 11:06 03/13/2009 AM CDT 11:11 AM CDT Andrey Tamez MD LABORATORY Performing Organization Address City/State/ZIP Code Phon e Number [facility] [address] [place] [address] [facility] (ABNORMAL) HEMOGLOBIN A1C (03/13/2009 11:06 AM CDT) P athologist Signature Hemoglobin A1C 7.5 (H) 4.3 - 6.0 [facility] Specimen Anatomical Collection Method Collection Time Receive d Time (Source) Location / / Volume Laterality 03/13/2009 11:06 03/13/2009 AM CDT 11:11 AM CDT Andrey Tamez MD LABORATORY Performing Organization Address City/State/ZIP Code Phon e Number [facility] [address] [place], [place] [address] [address] [facility] ALANINE AMINO (ALT) (SGPT) (03/13/2009 11:06 AM CDT) athologist Signature ALT 24 0 - 70 U/L [facility] Specimen Anatomical Collection Method Collection Time Receive d Time (Source) Location / / Volume Laterality 03/13/2009 11:06 03/13/2009 AM CDT 11:11 AM CDT Andrey Taemz MD LABORATORY Performing Organization Address [facility] Code Phon e Number [address] [address] [phone] [facility] (ABNORMAL) A.M.A. LIPID PANEL (03/13/2009 11:06 AM CDT) athologist Signature Cholesterol 145 0 - 200 [facility] mg/dL CLINIC LAB Comment: LDL Cholesterol [...] mg/dL. Triglycerides 146 0 - 150 mg/dL [facility] HDL Cholesterol 39 (L) 40 - 110 mg/dL [facility] LDL Cholesterol Calculated 77 0 - 129 mg/dL [facility] Comment: LDL Cholesterol is the primary guide to therapy: LDL-cholesterol goal in high risk patients is <100 mg/dL and in very high risk patients is <70 mg/dL. VLDL-Cholesterol 29 0 - 30 mg/dL [facility] Cholesterol/HDL Ratio 3.8 0.0 - 5.0 [facility] Specimen Anatomical Collection Method Collection Time Receive d Time (Source) Location / / Volume Laterality 03/13/2009 11:06 03/13/2009 AM CDT 11:11 AM CDT Andrey Tamez MD LABORATORY Performing Organization Address City/[facility]/ZIP Code Phon e Number [facility] [address] [place] [address] [facility] (ABNORMAL) A.M.A. BASIC METABOLIC PANEL (03/13/2009 11:06 AM CDT) P athologist Signature Sodium 139 133 - 144 [place] mmol/L [facility] Potassium 4.1 3.4 - 5.3 [place] mmol/L [facility] Chloride 101 94 - 109 [place] mmol/L [facility] Carbon Dioxide 27 20 - 32 [place] mmol/L [facility] Anion Gap 11 6 - 17 [place] mmol/L [facility] Glucose 129 (H) 60 - 99 [place] mg/dL [facility] Urea Nitrogen 13 7 - 30 [place] mg/dL [facility] Creatinine 0.96 0.66 - [place] 1.25 mg/dL [facility] Comment: New IDMS-traceable calibration beginning 01/05/08 GFR Estimate 79 >60 mL/min/1.7m2 [place] E [facility] GFR Estimate If Black >90 >60 mL/min/1.7m2 [facility] Calcium 8.8 8.5 - 10.4 mg/dL [facility] Specimen Anatomical Collection Method Collection Time Receive d Time (Source) Location / / Volume Laterality 03/13/2009 11:06 03/13/2009 AM CDT 11:11 AM CDT Andrey Tamez MD LABORATORY Performing Organization Address City/State/ZIP Code Phon e Number [facility] [address] [place] [address] [facility] documented in this encounter Visit Diagnoses Diagnosis TIA (transient ischaemic attack) Unspecified transient cerebral ischemia CAD (coronary artery disease) Coronary atherosclerosis of unspecified type of vessel, crow or graft Other and unspecified hyperlipidemia DIABETES UNCOMPL ADULT-TYPE II Type II or unspecified type diabetes vijaya litus without mention of complication, not stated as uncontrolled Paresthesias, distal Disturbance of skin sensation documented in this encounter Care Teams College Counselor Relationship Specialty Start Date End Date Bailey Doran MD PCP - General 09/20/00 03/25/[address] [place] [address] documented as of this encounter
--- OUTSIDE RECORDS SUMMARY | 2022-07-28 08:08 | XMS_ITS | Encounter Summary ---
:1945 Author Organization [place] Address [address] [place] [address] Care Team Providers Name Role Phone Andrey Tamez MD Primary Care Provider Bailey Doran MD Primary Care Provider Andrey Tamez MD Unavailable Andrey Tamez MD Unavailable Encounter Details Date Type Department Care Team Description 04/18/2008 Historic Results [facility] Heart Unknown, [facility] ider [address] [address] Social History Tobacco Use Types Packs/Day Years Used Date Smoking Tobacco: Former Cigarettes 0.5 16 Quit : 09/06/1978 Alcohol Use Standard Drinks/Week Comments Yes 10 (1 standard drink = 0.6 oz pure alcoh ol) 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
--- OUTSIDE RECORDS SUMMARY | 2022-07-28 08:08 | XMS_ITS | Encounter Summary ---
:1945 Author Organization [place] Address [address] [place] [address] Care Team Providers Name Role Phone Andrey Tamez MD Primary Care Provider Bailey Doran MD Primary Care Provider Andrey Tamez MD Unavailable Andrey Tamez MD Unavailable Encounter Details Date Type Department Care Team Description 04/18/2008 Historic Results [facility] Heart Unknown, [facility] ider [address] [address] Social History Tobacco Use Types Packs/Day Years Used Date Smoking Tobacco: Former Cigarettes 0.5 16 Quit : 09/06/1978 Alcohol Use Standard Drinks/Week Comments Yes 10 (1 standard drink = 0.6 oz pure alcoh ol) 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
--- OUTSIDE RECORDS SUMMARY | 2022-07-28 08:08 | XMS_ITS | Encounter Summary ---
:1945 Author Organization [place] Address [address] [place] [address] Care Team Providers Name Role Phone Bailey Doran MD Primary Care Provider Encounter Details Date Type Department Care Team Description 04/12/2008 Results Only [facility] Se zaid Lipscomb MD 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 Facial droop. TECHNIQUE: 3D [id number] MR angiogra phy was performed through the [facility] [place] [facility]. FINDINGS: The distal vertebral arteries, [...] on filedocumented in this encounter Care Teams Host/Hostess Head Relationship Specialty Start Date End Date Bailey Doran MD PCP - General 09/20/00 03/25/[address] [place] [address] documented as of this encounter
--- OUTSIDE RECORDS SUMMARY | 2022-07-28 08:08 | XMS_ITS | Encounter Summary ---
:1945 Author Organization [place] Address [address] [place] [address] Care Team Providers Name Role Phone Andrey Tamez MD Primary Care Provider Reason for Visit Reason Onset Date Comments Refill Request 05/13/2010 plavix, vytorin, met oprolol Encounter Details Date Type Department Care Team Description 05/13/2010 Refill [facility] Andrey Tamez MD Refill Request (plavix, [facility] [place] [address] vytorin, metoprolol) [address] [place], [place] [phone] Social History Tobacco Use Types Packs/Day Years Used Date Smoking Tobacco: Former Cigarettes 0.5 16 Quit : 09/06/1978 Alcohol Use Standard Drinks/Week Comments Yes 10 (1 standard drink = 0.6 oz pure alcoh ol) 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
--- OUTSIDE RECORDS SUMMARY | 2022-07-28 08:08 | XMS_ITS | Encounter Summary ---
:1945 Author Organization [place] Address [address] [place] [address] Care Team Providers Name Role Phone Andrey Tamez MD Primary Care Provider Bailey Doran MD Primary Care Provider Encounter Details Date Type Department Care Team Description 04/12/2008 Historic Results INTERFACED REPORT Korina Lipscomb MD EMERGENCY PHYSIC [place] [address] (Wo rk) Social History Tobacco Use Types Packs/Day Years Used Date Smoking Tobacco: Former Cigarettes 0.5 16 Quit : 09/06/1978 Alcohol Use Standard Drinks/Week Comments Yes 10 (1 standard drink = 0.6 oz pure alcoh ol) 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 of 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 encounter Plan of [...] RESULTS Atrial Rate 80 BPM RADIOLOGY RESULTS [place] Interval 172 ms RADIOLOGY RESULTS QRS Duration 84 ms RADIOLOGY RESULTS QT 362 ms RADIOLOGY RESULTS QTc 417 ms RADIOLOGY RESULTS P [place] 46 degrees RADIOLOGY RESULTS R AXIS 19 degrees RADIOLOGY RESULTS T [place] 38 degrees RADIOLOGY RESULTS Interpretation Sinus rhythm [...] on filedocumented in this encounter Care Teams Management Professional Relationship Specialty Start Date End Date Andrey Tamez MD PCP - General 03/26/09 Bailey Doran MD PCP - General 09/20/00 03/25/[address] [place] [address] documented as of this encounter
--- OUTSIDE RECORDS SUMMARY | 2022-07-28 08:08 | XMS_ITS | Encounter Summary ---
:1945 Author Organization [place] Address [address] [place] [address]. [place] [address] Care Team Providers Name Role Phone Andrey Tamez MD Primary Care Provider Andrey Tamez MD Unavailable Andrey Tamez MD Unavailable Encounter Details Date Type Department Care Team Description 09/18/2009 Office Visit-[facility] Katy Trevizo APRN [facility] [place] [address] [place] [address] [place], [place] [phone] (Wo rk) Social History Tobacco Use Types Packs/Day Years Used Date Smoking Tobacco: Former Cigarettes 0.5 16 Quit : 09/06/1978 Alcohol Use Standard Drinks/Week Comments Yes 10 (1 standard drink = 0.6 oz pure alcoh ol) 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 [id number] DATE: 09/18/2009 RODOLFO HARTLEY DATE OF : 1945 AGE: [age] years old Referring Physician: LAURA RESTREPO Referring Clinic: [facility] CURRENT DIAGNOSES 1. - CAD, 414.00 2. - Hyperlipidemia, 272.4 3. Cerebral Vascular Accident, 435.9 4. IL-S/P Anterior, 412 5. PTCA-LAD FLORI stent 03/2005 [...] delightful 64-year-old male who presents to the [facility] today for a followup [...] PAST HISTORY Past Medical Illnesses: hyperlipidemia, diabetes oinyrmma-dzi-ehxasjg dependent, hypertension, CVA without residual deficits Past [...] Seat Belt Use - always; Occupation - [employer]; Residence - lives with ; Place of [...] on filedocumented in this encounter Care Teams Gun Examiner Relationship Specialty Start Date End Date Andrey Tamez MD PCP - General 03/26/09 Andrey Tamez MD PCP - Assigned PCP 09/11/12 11/08/[address] [place] [address] Andrey Tamez MD Assigned PCP 09/11/12 09/07/[address] [place] [address] documented as of this encounter
--- OUTSIDE RECORDS SUMMARY | 2022-07-28 08:08 | XMS_ITS | Encounter Summary ---
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 Pt [...] Functioning , Higher Level ADLs, Prognosis/Impression Interface, Staging Technician - 11/23/2010 6:17 PM CDT General Information [...] Functional Performance, Sensation, Muscle Tone, Prognosis/Impression Interface, Staging Technician - 11/23/2010 6:17 PM CDT PHYSICAL THERAPY [...] Score: 4 Retrieve Object from Floor Instructions: supervisor production managing the shoe which is placed in front [...] degrees Instructions: Turn around in a full miami. Pause for one minute, then turn a full miami in the other direction. 4-Safe in less [...] Author: Pito Torres (PT) [Signed 11:08] Interface, Staging Technician - 11/23/2010 6:17 PM CDT Patient Status - Diagnosis/Procedure regular - Physical status Stable (s/s of potential complications absent or manageable) - Psychosocial status Stable Discharge Planning - Discharge From: [facility] - Patient Care Unit: station 55 - PCU - Discharge To: Home/Alternative home - Phone number after [phone] discharge: - Method of discharge: Wheel Chair [...] Dr. Thomas call: - Phone number of [facility] [phone] patient should call: - Is patient going home No with IV Catheter?: Follow Up Care - Physician/clinician Dr. Thomas-call for time name: - - When to see Wednesday or Wednesday physician/clinician: - Instructions: Outpatient NELDA call [phone] to schedule Signatures PAT ERIC (AVA)[Signed 13:23] Authored: Patient Status, Discharge Planning, Discharge Information, Support Services, Special Care Needs and Instructions, Follow Up Care Interface, Staging Technician - 11/23/2010 6:17 PM CDT Swallowing Compensations - Type of Note Initial Evaluation - Patient Profile Yes Review - Patient/Family Goals I am hungary. - Swallowing Evaluation Bedside swallow evaluation; PT admitted with slurred speech and Left facial droop. 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 PMH - CAD, Acute [place] 03/2005, Diabetes, HTN, peripheral neropathy. Oral Motor [...] for Yes Therapy Intervention Met - Assessment SENIOR SEARCH MARKETING ANALYST - Bedside Swallow Evaluation completed. PT does [...] goals Potential - Demonstrates need for OT; SENIOR SEARCH MARKETING ANALYST referral to another service - Predicted Duration [...] on filedocumented in this encounter Care Teams Executive Director Contract Shop Relationship Specialty Start Date End Date Andrey Tamez MD PCP - General 03/26/09 Bailey Doran MD PCP - General 09/20/00 03/25/[address], [address] [place] [address] documented as of this encounter
--- OUTSIDE RECORDS SUMMARY | 2022-07-28 08:08 | XMS_ITS | Encounter Summary ---
:1945 Author Organization [facility] Address [address] [place] [address] Care Team Providers Name Role Phone Bailey Doran MD Primary Care Provider Encounter Details Date Type Department Care Team Description 04/13/2008 Consultation [facility] Nino Thomas MD [facility] Results [address] [place] [address] (Wo rk) Social History Tobacco Use Types Packs/Day Years Used Date Smoking Tobacco: Former Cigarettes 0.5 16 Quit : 09/06/1978 Alcohol Use Standard Drinks/Week Comments Yes 10 (1 standard drink = 0.6 oz pure alcoh ol) 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 He works at [employer]. ALLERGIES: He is not allergic to any [...] position and vibration. Coordination is intact to [id number]. LABORATORY: His evaluation in the hospital demonstrated [...] nancy Name: RODOLFO HARTLEY MRN: -[id number] Account: [id number] : 1945 Consult Date: 04/13/2008 Document: [id number] cc: [facility] documented in this encounter Plan of Treatment Not on filedocumented as of this encounter Visit Diagnoses Not on filedocumented in this encounter Care Teams Biztalk Consultant Relationship Specialty Start Date End Date Bailey Doran MD PCP - General 09/20/00 03/25/[address], [address] [place] [address] documented as of this encounter
--- OUTSIDE RECORDS SUMMARY | 2022-07-28 08:08 | XMS_ITS | Encounter Summary ---
:1945 Author Organization [facility] Address [address] [place] [address] Care Team Providers Name Role Phone Bailey Doran MD Primary Care Provider Encounter Details Date Type Department Care Team Description 04/12/2008 Discharge Summary [facility] Lizeth Rogers (Orthopedic Physician) [facility] [address] [facility] [place], [place] [id number] (Wo rk) Social History Tobacco Use Types Packs/Day Years Used Date Smoking Tobacco: Former Cigarettes 0.5 16 Quit : 09/06/1978 Alcohol Use Standard Drinks/Week Comments Yes 10 (1 standard drink = 0.6 oz pure alcoh ol) 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 documented as of this encounter Progress Notes Interface, Orthopedic Physician - 04/14/2008 3:15 PM CDT FINAL PRIMARY [...] MD MT: gaetano Name: RODOLFO HARTLEY Account: [id number] : 1945 Admit Date: Discharge Date: 04/13/2008 Document: [id number] cc: Lior Thomas MD [facility] documented in this encounter Plan of Treatment Not on filedocumented as of this encounter Visit Diagnoses Not on filedocumented in this encounter Care Teams Rope Walker Relationship Specialty Start Date End Date Bailey Doran MD PCP - General 09/20/00 03/25/09 [address] , [facility] [address] [place] [address] documented as of this encounter
--- OUTSIDE RECORDS SUMMARY | 2022-07-28 08:08 | XMS_ITS | Encounter Summary ---
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 Mutuality/Individual Preferences - What information nothing [...] on filedocumented in this encounter Care Teams Nylon Machine Operator Relationship Specialty Start Date End Date Andrey Tamez MD PCP - General 03/26/09 Bailey Doran MD PCP - General 09/20/00 03/25/09 [address] [facility] [address] [address] documented as of this encounter
--- OUTSIDE RECORDS SUMMARY | 2022-07-28 08:08 | XMS_ITS | Encounter Summary ---
:1945 Author Organization [facility] Address [facility] [place] [address] Care Team Providers Name Role Phone Andrey Tamez MD Primary Care Provider Bailey Doran MD Primary Care Provider Encounter Details Date Type Department Care Team Description 04/12/2008 Historic Results [facility] Scott Tiwari , Hospitalists [address] [place] [id number] [phone] Social History Tobacco Use Types Packs/Day Years Used Date Smoking Tobacco: Former Cigarettes 0.5 16 Quit : 09/06/1978 Alcohol Use Standard Drinks/Week Comments Yes 10 (1 standard drink = 0.6 oz pure alcoh ol) 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 documented as of this encounter Plan of [...] UA with microscopic (04/12/2008 11:45 PM CDT) [facility] FindMySong Method Time Signature Source Midstream MISYS Urine Color Urine Light Yellow MISYS Appearance Urine Clear MISYS Glucose Urine Negative NEG mg/dL MISYS Bilirubin Urine Negative NEG MISYS Ketones Urine Negative NEG mg/dL MISYS Specific [place] 1.012 1.003 - MISYS Urine 1.035 Blood [...] with platelets differential (04/12/2008 3:00 PM CDT) [facility] FindMySong Method Time Signature MCV 98 78 - [...] ORDERABLES Performing Organization Address City/[facility] Phon e Number MISYS INR (04/12/2008 3:00 PM CDT) P athologist Signature INR 1.01 0.86 - 1.14 MISYS Specimen Anatomical Collection Method Collection Time Receive d Time (Source) Location / / Volume Laterality 04/12/2008 3:00 PM 8 4:05 CDT PM CDT Baljinder Lipscomb MD LAB - BLOOD ORDERABLES Performing Organization Address [facility] Phon e Number MISYS Partial thromboplastin time (04/12/2008 3:00 PM CDT) P athologist Signature PTT 27 22 - 37 sec MISYS Specimen Anatomical Collection Method Collection Time Receive d Time (Source) Location / / Volume Laterality 04/12/2008 3:00 PM 8 4:05 CDT PM CDT Baljinder Lipscomb MD LAB - BLOOD ORDERABLES Performing Organization Address [facility] Phon e Number MISYS (ABNORMAL) Comprehensive [...] on filedocumented in this encounter Care Teams Appliance Fixer Relationship Specialty Start Date End Date Andrey Tamez MD PCP - General 03/26/09 Bailey Doran MD PCP - General 09/20/00 03/25/09 [address] [facility] [address] [place] [address] documented as of this encounter
--- OUTSIDE RECORDS SUMMARY | 2022-07-28 08:08 | XMS_ITS | Encounter Summary ---
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 documented in this encounter Results ECHO HEART,TRANSESOPHAGEAL,COMPLETE (04/18/2008 1:45 PM CDT) [facility] Method Time Signature [facility] Interpretation [...] on filedocumented in this encounter Care Teams Web Project Manager Relationship Specialty Start Date End Date Bailey Doran MD PCP - General 09/20/00 03/25/[address], [address] [place] [address] documented as of this encounter
--- OUTSIDE RECORDS SUMMARY | 2022-07-28 08:08 | XMS_ITS | Encounter Summary ---
:1945 Author Organization [facility] Address [address] [place] [address] Care Team Providers Name Role Phone Andrey Tamez MD Primary Care Provider Reason for Referral Specialty Diagnoses / Procedures Referred By Contact Refer red To Contact Andrey Tamez MD [address] [place] [address] Referral ID Status Reason Start Date Expiration Date Visits Requ ested Visits Authorized Encounter Details Date Type Department Care Team Description 05/01/2010 Orders Only [facility] Andrey Tamez MD ABSTRACTING RESULTS [facility] [address] (Primary Dx) [address] [phone] Social History Tobacco Use Types Packs/Day Years Used Date Smoking Tobacco: Former Cigarettes 0.5 16 Quit : 09/06/1978 Alcohol Use Standard Drinks/Week Comments Yes 10 (1 standard drink = 0.6 oz pure alcoh ol) 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
--- OUTSIDE RECORDS SUMMARY | 2022-07-28 08:08 | XMS_ITS | Encounter Summary ---
:1945 Author Organization [facility] Address [address] [place] [address]. [place] [address] Care Team Providers Name Role Phone Andrey Tamez MD Primary Care Provider Andrey Tamez MD Unavailable Andrey Tamez MD Unavailable Encounter Details Date Type Department Care Team Description 10/09/2009 Office Visit-[facility] Katy Trevizo APRN Clinic [place] [id number] [address] [place] [address] [place], [place] [phone] (Wo rk) Social History Tobacco Use Types Packs/Day Years Used Date Smoking Tobacco: Former Cigarettes 0.5 16 Quit : 09/06/1978 Alcohol Use Standard Drinks/Week Comments Yes 10 (1 standard drink = 0.6 oz pure alcoh ol) 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 - CAD, 414.00 2. - Hyperlipidemia, 272.4 3. Cerebral Vascular Accident, 435.9 4. [place]-S/P Anterior, 412 5. PTCA-LAD FLORI stent 03/2005 [...] PAST HISTORY Past Medical Illnesses: hyperlipidemia, diabetes htvwzzan-jva-xbogelq dependent, hypertension, CVA without residual deficits Past [...] Seat Belt Use - always; Occupation - [employer]; Residence - lives with ; Place of - [place]; Hours Worked - 40 hours per week; [...] on filedocumented in this encounter Care Teams Investment Banking Manager Relationship Specialty Start Date End Date Andrey Tamez MD PCP - General 03/26/09 Andrey Tamez MD PCP - Assigned PCP 09/11/12 11/08/18 [address] [place] [id number] Andrey Tamez MD Assigned PCP 09/11/12 09/07/20 [address] [place] [id number] documented as of this encounter
--- OUTSIDE RECORDS SUMMARY | 2022-07-28 08:08 | XMS_ITS | Encounter Summary ---
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 documented as of this encounter Progress Notes Interface, Senior Software Architect - 11/23/2010 6:13 PM CDT Discharge Summary - Reason for Discharge Discharge from facility, home - Progress toward Goals not met achieving short term goals/skilled nursing goals - Barriers to achieving Discharge on same date as initial evaluation goals - Continued Therapy Yes Recommended - Rationale/ see evaluation and recommendations for discharge Recommendations Signatures Darline Dinh (OTR/L)[Signed 15:59] Authored: Discharge Summary documented in this encounter Plan of Treatment Not on filedocumented as of this encounter Visit Diagnoses Not on filedocumented in this encounter Care Teams Manager Administrative Services Relationship Specialty Start Date End Date Andrey Tamez MD PCP - General 03/26/09 Bailey Doran MD PCP - General 09/20/00 03/25/09 [address] , [facility] [address] [place] [address] documented as of this encounter
--- OUTSIDE RECORDS SUMMARY | 2022-07-28 08:08 | XMS_ITS | Encounter Summary ---
:1945 Author Organization [facility] Address [address] [place] [address]. [place] [address] Care Team Providers Name Role Phone Shane Tamez MD Primary Care Provider Shane Tamez MD Unavailable Shane Tamez MD Unavailable Encounter Details Date Type Department Care Team Description 04/23/2010 Office Visit-[facility] Yazan Foreman [facility] Bean Madsen MD [address] 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 DATE: 04/23/2010 NAEEMRODOLFO DATE OF : 1945 AGE: [age] years old Referring Physician: SHANE TAMEZ Referring Clinic: [facility] CURRENT DIAGNOSES 1. - CAD, 414.00 2. WI-S/P Anterior, 412 3. PTCA-LAD FLORI stent 03/2005 [...] of - Hypertension, benign and Followup of WI-S/P Anterior HISTORY OF PRESENT ILLNESS I had [...] PAST HISTORY Past Medical Illnesses: hyperlipidemia, diabetes nrxnhnyh-yrr-tgrcuad dependent, hypertension, CVA without residual deficits Past [...] - lives with ; Place of - [place]; Hours Worked - 40 hours per week; [...] ORDERS 1. F/U with Katy Trevizo, MSN, MOTEL MANAGER 1 year Yazan Foreman M.D. documented in this encounter Plan of Treatment Not on filedocumented as of this encounter Visit Diagnoses Not on filedocumented in this encounter Care Teams Internal Medicine Nurse Practitioner Relationship Specialty Start Date End Date Shane Tamez MD PCP - General 03/26/09 Shane Tamez MD PCP - Assigned PCP 09/11/12 11/08/18 [address] [place] [address] Shane Tamez MD Assigned PCP 09/11/12 09/07/20 [address] [place] [address] documented as of this encounter
--- OUTSIDE RECORDS SUMMARY | 2022-07-28 08:09 | XMS_ITS | Encounter Summary ---
:1945 Author Organization [place] Address [address] [place] [address] Care Team Providers Name Role Phone Bailey Doran MD Primary Care Provider Reason for Referral - Closed Specialty Diagnoses / Procedures Referred By Contact Refer red To Contact Ophthalmology Diagnoses Type II or unspecified type diabetes mellitus without mention of complication, not stated as uncontrolled Bailey Doran MD [address], [facility] [address] [place] [address] Referral ID Status Reason Start Date Expiration Date Visits Requ ested Visits Authorized [id number] Closed 07/03/2002 09/05/2011 1 1 BOAT OR BARGE MATE Reason for Visit Reason Comments Refill Request Lipitor Blood Draw pt is fasting this am. Encounter Details Date Type Department Care Team Description 07/03/2002 Office Visit [facility] Bailey Doran, DIABET ES UNCOMPL ADULT-TYPE II (Primary Dx); Physicians MIXED HYPERLIPIDEMIA; [address], VACCINE FOR INFLUENZA [address] [place] [address] [phone] Social History Tobacco Use Types Packs/Day Years Used Date Smoking Tobacco: Former Cigarettes 0.5 16 Quit : 09/06/1978 Alcohol Use Standard Drinks/Week Comments Yes 10 (1 standard drink = 0.6 oz pure alcoh ol) Sex Assigned at Date Recorded Male 10/03/2020 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 documented as of this encounter Last Filed Vital Signs Vital Sign Reading Time Taken Comments Blood Pressure 138/86 07/03/2002 8:15 AM SHIP BOAT OR BARGE MATE Pulse - - Temperature 36.1 ??C (97 ??F) 07/03/2002 8:15 AM SHIP BOAT OR BARGE MATE Respiratory Rate 12 07/03/2002 8:15 AM SHIP BOAT OR BARGE MATE Oxygen Saturation - - Inhaled Oxygen Concentration - - Weight 84.1 kg (185 lb 8 oz) 07/03/2002 8:15 AM SHIP BOAT OR BARGE MATE Height 177.8 cm (5' 10) 07/03/2002 8:15 AM SHIP BOAT OR BARGE MATE Body Mass Index 26.62 07/03/2002 8:15 AM SHIP BOAT OR BARGE MATE documented in this encounter Progress Notes 07/03/2002 8:15 AM SHIP BOAT OR BARGE MATE SUBJECTIVE: Rodolfo Quevedo is an 57 year [...] weeks. FLU VACCINE, 3 YRS +, IM [02080] Orde r #: [id number] Class: Normal CONSULT TO OPHTHALMOLOGY [9024] Order #: [id number] Class: External referral 2) Low fat, low [...] Diabetes Uncompl Results for this HEMOGLOBIN AM SHIP BOAT OR BARGE MATE Adult-Type Ii procedure are in Mixed Hyperlipidemia the res ults section. HCL LIPID PANEL Routine 07/04/2002 5:36 Diabetes Uncompl Resul ts for this AM SHIP BOAT OR BARGE MATE Adult-Type Ii procedure are in Mixed Hyperlipidemia the res ults section. HCL AST Routine 07/04/2002 5:36 Diabetes Uncompl Results for this AM SHIP BOAT OR BARGE MATE Adult-Type Ii procedure are in Mixed Hyperlipidemia the res ults section. ZZCL AFF Routine 07/03/2002 10:52 Diabetes Uncompl Results for this MICROALBUMIN, AM SHIP BOAT OR BARGE MATE Adult-Type Ii procedure are in SEMIQUANTT Mixed Hyperlipidemia the res ults section. CL AFF GLUCOSE, Routine 07/03/2002 9:10 Diabetes Uncompl Resul ts for this FASTING AM SHIP BOAT OR BARGE MATE Adult-Type Ii procedure are in Mixed Hyperlipidemia the res ults section. HC VENOUS COLLECTION Routine 07/03/2002 8:32 Diabetes Uncompl AM SHIP BOAT OR BARGE MATE Adult-Type Ii Mixed Hyperlipidemia documented in this encounter Results CONSULT TO OPHTHALMOLOGY (01/02/2003) Narrative This result has an attachment that is no t available. Bailey Doran MD REFERRAL (ABNORMAL) HEMOGLOBIN A1C (07/04/2002 7:07 AM SHIP BOAT OR BARGE MATE) P athologist Signature Hemoglobin A1C 6.4 (H) PERCENT [facility] [place] Specimen (Source) Anatomical Location Collection Method / Collectio n Time Received Time / Laterality Volume 07/03/2002 Narrative [facility] - 07/04/2002 7:07 AM SHIP BOAT OR BARGE MATE ?REFERENCE RANGE: ??NON-DIABETIC <6.0% THE [place] [employer] RECOMM ENDS THAT THE GOAL OF THERAPY SHOULD BE A HEMOGLOBIN A 1C OF <7% AND THAT PHYSICIANS SHOULD REEVALUATE THE TR EATMENT REGIMEN IN PATIENTS WITH HEMOGLOBIN A1C VALUES CONSISTENTLY >8.0%. Bailey Doran MD LABORATORY Performing Organization Address [facility] [place] Phon e Number ADAM MICHELLE AST (07/04/2002 5:36 AM SHIP BOAT OR BARGE MATE) P athologist Signature Comments DNR [facility] AST 15 2 - 50 U/L [facility] Specimen (Source) Anatomical Location Collection Method / Collectio n Time Received Time / Laterality Volume 07/03/2002 Bailey Doran MD LABORATORY Performing Organization Address [facility] Phon e Number ADAM MICHELLE (ABNORMAL) A.M.A. LIPID PANEL (07/04/2002 5:36 AM SHIP BOAT OR BARGE MATE) [facility] Method Time Signature Comments DNR [facility] Triglycerides 199 (H) <150 MG/DL [facility] Cholesterol 172 <200 MG/DL [facility] Cholesterol 10 PERCENTILE [facility] Percentile HDL Cholesterol 40 >39 MG/DL [facility] LDL Cholesterol 92 <130 MG/DL [facility] Calculated Cholesterol/HDL 4.3 <5.0 [facility] Ratio Specimen (Source) Anatomical Location Collection Method / Collectio n Time Received Time / Laterality Volume 07/03/2002 Bailey Doran MD LABORATORY Performing Organization Address [facility] Phon e Number [facility] [place] MICROALBUMIN, SEMIQUANT (07/03/2002 10:52 AM SHIP BOAT OR BARGE MATE) P athologist Signature Microalbumin 10 [facility] Narrative [facility] - 07/03/2002 10:52 AM SHIP BOAT OR BARGE MATE CRE 300mg/dl A:C <30 mg/g normal Bailey Doran MD LABORATORY Performing Organization Address City/State/ZIP Code Phon e Number [facility] (ABNORMAL) GLUCOSE, FASTING (07/03/2002 9:10 AM SHIP BOAT OR BARGE MATE) athologist Signature Glucose 132 (A) 60 - 120 [facility] mg/dL Specimen (Source) Anatomical Collection Method Collection Time Re ceived Time Location / / Volume Laterality 07/03/2002 9:10 AM SHIP BOAT OR BARGE MATE Bailey Doran MD LABORATORY Performing Organization Address City/State/ZIP Code Phon e Number [facility] documented in this encounter Visit Diagnoses Diagnosis Type II or unspecified type diabetes vijaya litus without mention of complication, not stated as uncontrolled - Primary Mixed hyperlipidemia Need vaccination-viral disease Need for prophylactic vaccination and in oculation against other viral diseases documented in this encounter Care Teams Crusher Relationship Specialty Start Date End Date Bailey Doran MD PCP - General 09/20/00 03/25/[address], [address] [place] [address] documented as of this encounter
--- OUTSIDE RECORDS SUMMARY | 2022-07-28 08:09 | XMS_ITS | Encounter Summary ---
:1945 Author Organization [place] Address [address] [place] [address] Care Team Providers Name Role Phone Bailey Doran MD Primary Care Provider Reason for Visit Reason Comments forms [facility] Encounter Details Date Type Department Care Team Description 02/16/[address] 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 Contact: GAVE FORM TO NURSES documented in this encounter Plan of Treatment Not on filedocumented as of this encounter Visit Diagnoses Not on filedocumented in this encounter Care Teams Provider Network Mgr Relationship Specialty Start Date End Date Bailey Doran MD PCP - General 09/20/00 03/25/09 [address] , [facility] [address] [place] [address] documented as of this encounter
--- OUTSIDE RECORDS SUMMARY | 2022-07-28 08:09 | XMS_ITS | Encounter Summary ---
:1945 Author Organization [place] Address [address] [place] [address]. [place] [address] Care Team Providers Name Role Phone Andrey Tamez MD Primary Care Provider Bailey Doran MD Primary Care Provider Encounter Details Date Type Department Care Team Description 04/13/2005 Historic Results [facility]-Anastacio Madsen MD Hospitalists [address] [facility] [address] [place], [place] [address] (Wo rk) Social History Tobacco Use Types Packs/Day Years Used Date Smoking Tobacco: Former Cigarettes 0.5 16 Quit : 09/06/1978 Alcohol Use Standard Drinks/Week Comments Yes 10 (1 standard drink = 0.6 oz pure alcoh ol) Sex Assigned at Date Recorded 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
--- OUTSIDE RECORDS SUMMARY | 2022-07-28 08:09 | XMS_ITS | Encounter Summary ---
:1945 Author Organization [place] Address [address] [place] [address] Care Team Providers Name Role Phone Andrey Tamez MD Primary Care Provider Bailey Doran MD Primary Care Provider Andrey Tamez MD Unavailable Andrey Tamez MD Unavailable Encounter Details Date Type Department Care Team Description 03/30/2005 Office Visit-[facility] Unknown, Yassine tay MD [address] [address] Social History Tobacco Use Types Packs/Day Years Used Date Smoking Tobacco: Former Cigarettes 0.5 16 Quit : 09/06/1978 Alcohol Use Standard Drinks/Week Comments Yes 10 (1 standard drink = 0.6 oz pure alcoh ol) Sex Assigned at Date Recorded 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 CURRENT DIAGNOSES 1. LA-Acute Anterior, 410.11 2. - CAD, 414.00 3. [...] a delightful 59-year-old gentleman who presents to [facility] today for afollow-up visit regarding his recent hospitalization. 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 An acute anterior wall LA with emergent stenting to the LAD. The [...] on filedocumented in this encounter Care Teams Otolaryngology Physician Relationship Specialty Start Date End Date Andrey Tamez MD PCP - General 03/26/09 Bailey Doran MD PCP - General 09/20/00 03/25/[address], [address] [place] [address] Andrey Tamez MD PCP - Assigned PCP 09/11/12 11/08/18 [address] [place] [address] Andrey Tamez MD Assigned PCP 09/11/12 09/07/20 [address] [facility] [facility] [address] [place], [place] [address] documented as of this encounter
--- OUTSIDE RECORDS SUMMARY | 2022-07-28 08:09 | XMS_ITS | Encounter Summary ---
:1945 Author Organization [place] Address [address] [place] [address] Care Team Providers Name Role Phone Andrey Tamez MD Primary Care Provider Bailey Doran MD Primary Care Provider Encounter Details Date Type Department Care Team Description 03/18/2005 Historic Results [facility] Ever[place] Eva Mccoy MD [address] [address] [phone] Social History Tobacco Use Types Packs/Day Years Used Date Smoking Tobacco: Former Cigarettes 0.5 16 Quit : 09/06/1978 Alcohol Use Standard Drinks/Week Comments Yes 10 (1 standard drink = 0.6 oz pure alcoh ol) Sex Assigned at Date Recorded 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
--- OUTSIDE RECORDS SUMMARY | 2022-07-28 08:09 | XMS_ITS | Encounter Summary ---
:1945 Author Organization [place] Address [address] [place] [address] Care Team Providers Name Role Phone Andrey Tamez MD Primary Care Provider Bailey Doran MD Primary Care Provider Encounter Details Date Type Department Care Team Description 03/17/2005 Historic Results [facility] Ever[place] Rivera [place] Eva Mccoy MD [address] [place] [address] [address] [phone] Social History Tobacco Use Types Packs/Day Years Used Date Smoking Tobacco: Former Cigarettes 0.5 16 Quit : 09/06/1978 Alcohol Use Standard Drinks/Week Comments Yes 10 (1 standard drink = 0.6 oz pure alcoh ol) Sex Assigned at Date Recorded 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 Abnormal ECG No previous ECGs available Specimen Anatomical Collection Method Collection Time Receive d Time (Source) Location / / Volume Laterality 03/17/2005 5:08 AM 5 4:56 CDT AM CDT Jadiel Rivera MD ECG ORDERABLES Performing Organization Address City/State/ZIP Code Phon e Number RADIOLOGY RESULTS documented in this encounter Visit Diagnoses Not on filedocumented in this encounter Care Teams Community Outreach Coordinator Relationship Specialty Start Date End Date Andrey Tamez MD PCP - General 03/26/09 Bailey Doran MD PCP - General 09/20/00 03/25/[address], [address] [place] [address] documented as of this encounter
--- OUTSIDE RECORDS SUMMARY | 2022-07-28 08:09 | XMS_ITS | Encounter Summary ---
:1945 Author Organization [place] Address [address] [place] [address] Care Team Providers Name Role Phone Bailey Doran MD Primary Care Provider Encounter Details Date Type Department Care Team Description 11/24/2001 Orders Only [facility] Bailey Doran, MIXED HYPERLIPIDEMIA; Physicians DIABETES UNCOMPL ADULT-TYPE II [address] [address] , [address] [id number] Social History Tobacco Use Types Packs/Day Years Used Date Smoking Tobacco: Former Cigarettes 0.5 16 Quit : 09/06/1978 Alcohol Use Standard Drinks/Week Comments Yes 10 (1 standard drink = 0.6 oz pure alcoh ol) Sex Assigned at Date Recorded 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 HCL LIPID PANEL Routine 11/25/2001 12:36 AM Mixed Resul ts for this ROCKET ENGINE COMPONENT MECHANIC Hyperlipidemia procedure are in Diabetes Uncompl the results Adult-Type Ii section. HC VENOUS COLLECTION Routine 11/24/2001 8:36 AM Mixed ROCKET ENGINE COMPONENT MECHANIC Hyperlipidemia Diabetes Uncompl Adult-Type Ii documented in this encounter Results (ABNORMAL) A.M.A. HEPATIC PANEL (11/25/2001 12:36 AM ROCKET ENGINE COMPONENT MECHANIC) Analysis Performed At Patho logist Time Signature Comments DNR [facility] Protein Total 6.9 6.0 - 8.3 [facility] G/DL Albumin 4.7 3.5 - 4.9 [facility] G/DL Globulin 2.2 2.2 - 4.2 [facility] Calculated G/DL A/G Ratio 2.1 (H) 0.8 - 2.0 [facility] Bilirubin Total 0.6 0.2 - 1.5 [facility] MG/DL Bilirubin Direct 0.1 0.0 - 0.3 [facility] MG/DL Alkaline 70 20 - 125 [facility] Phosphatase U/L AST 17 2 - 50 U/L [facility] ALT 23 2 - 60 U/L [facility] Specimen (Source) Anatomical Location Collection Method / Collectio n Time Received Time / Laterality Volume 11/24/2001 Bailey Doran MD LABORATORY Performing Organization Address City/State/ZIP [facility] Phon e Number [facility] (ABNORMAL) A.M.A. LIPID PANEL (11/25/2001 12:36 AM ROCKET ENGINE COMPONENT MECHANIC) Patholo gist Method Time Signature Comments DNR [facility] Triglycerides 216 (H) <150 MG/DL [facility] Cholesterol 170 <200 MG/DL [facility] Cholesterol 9 PERCENTILE [facility] Percentile HDL Cholesterol 43 >39 MG/DL [facility] LDL Cholesterol 84 <130 MG/DL [facility] Calculated Cholesterol/HDL 4.0 3.0 - 6.5 [facility] Ratio Specimen (Source) Anatomical Location Collection Method / Collectio n Time Received Time / Laterality Volume 11/24/2001 Bailey Doran MD LABORATORY Performing Organization Address City/State/ZIP [facility] Phon e Number [facility] documented in this encounter Visit Diagnoses Diagnosis Mixed hyperlipidemia Type II or unspecified type diabetes vijaya litus without mention of complication, not stated as uncontrolled documented in this encounter Care Teams Display Designer Relationship Specialty Start Date End Date Bailey Doran MD PCP - General 09/20/00 03/25/[address], [address] [place] [address] documented as of this encounter
--- OUTSIDE RECORDS SUMMARY | 2022-07-28 08:09 | XMS_ITS | Encounter Summary ---
:1945 Author Organization [place] Address [address] [place] [address] Care Team Providers Name Role Phone Andrey Tamez MD Primary Care Provider Bailey Doran MD Primary Care Provider Encounter Details Date Type Department Care Team Description 04/03/2005 Historic Results [facility]-Anastacio Madsen MD Hospitalists [address] [facility] [address] [place], [place] [phone] (Wo rk) Social History Tobacco Use Types Packs/Day Years Used Date Smoking Tobacco: Former Cigarettes 0.5 16 Quit : 09/06/1978 Alcohol Use Standard Drinks/Week Comments Yes 10 (1 standard drink = 0.6 oz pure alcoh ol) Sex Assigned at Date Recorded 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 POCT Performing Organization Address City/State/ZIP Code Phon e Number MISYS documented in this encounter Visit Diagnoses Not on filedocumented in this encounter Care Teams Brim Blocker Relationship Specialty Start Date End Date Andrey Tamez MD PCP - General 03/26/09 Bailey Doran MD PCP - General 09/20/00 03/25/09 [address] [facility] [address] [place] [address] documented as of this encounter
--- OUTSIDE RECORDS SUMMARY | 2022-07-28 08:09 | XMS_ITS | Encounter Summary ---
:1945 Author Organization [place] Address [address] [place] [address] Care Team Providers Name Role Phone Andrey Tamez MD Primary Care Provider Bailey Doran MD Primary Care Provider Encounter Details Date Type Department Care Team Description 03/19/2005 Historic Results [facility] Ever[place] Eva Mccoy MD [address] [place] [address] 8[address] [phone] Social History Tobacco Use Types Packs/Day Years Used Date Smoking Tobacco: Former Cigarettes 0.5 16 Quit : 09/06/1978 Alcohol Use Standard Drinks/Week Comments Yes 10 (1 standard drink = 0.6 oz pure alcoh ol) Sex Assigned at Date Recorded 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
--- OUTSIDE RECORDS SUMMARY | 2022-07-28 08:09 | XMS_ITS | Encounter Summary ---
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 Bailey Doran/[facility] Indication for Procedure: ??This is a 59 year old patient wi th no previous cardiac history presenting to [facility] with chest discomfort and ST segment elevation in the anterior le ads suggesting an acute CO. He is brought emergently to [facility] for coronary evaluation and intervention. PROCEDURE: [...] REPORT Procedure: ??I initially used a 6.5 Dive[place] sheath and a JL4 guiding catheter in anticipation of a likely intervention in the LAD . ??A [place] wire was advanced without difficulty across the [...] complications. 2. ??Reopro had been administered at [facility] and was continue d throughout this procedure. [...] Component Value Ref Test Analysis Performed At [facility] Range Method Time Signature IMAGECAST RADIOLOGY RESULT ANGIOGRAM REPORT RESULTS cc: ??Dr. Bailey Doran/[facility] Indication for Procedure: ??This is a 59 year old patient wi th no previous cardiac history presenting to [facility] with chest discomfort and ST segment elevation in the anterior le ads suggesting an acute CO. He is brought emergently to [facility] for coronary evaluation and intervention. PROCEDURE: [...] REPORT Procedure: ??I initially used a 6.5 [place]ive[place] sheath and a JL4 guiding catheter in anticipation of a likely intervention in the LAD . ??A [place] wire was advanced without difficulty across the [...] complications. 2. ??Reopro had been administered at [facility] and was continue d throughout this procedure. [...] on filedocumented in this encounter Care Teams Vp Respiratory Relationship Specialty Start Date End Date Bailey Doran MD PCP - General 09/20/00 03/25/09 [address] , [facility] [address] [place] [address] documented as of this encounter
--- OUTSIDE RECORDS SUMMARY | 2022-07-28 08:09 | XMS_ITS | Encounter Summary ---
:1945 Author Organization [place] Address [address] [place] [address] Care Team Providers Name Role Phone Andrey Tamez MD Primary Care Provider Bailey Doran MD Primary Care Provider Andrey Tamez MD Unavailable Andrey Tamez MD Unavailable Encounter Details Date Type Department Care Team Description 11/02/2005 Office Visit-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 - Hyperlipidemia, 272.4 2. AK-S/P Anterior, 412 3. - Cardiomyopathy Ischemic, 414.8 [...] p.o. b.i.d. CHIEF COMPLAINTS f/u CAD, post AK HISTORY OF PRESENT ILLNESS Rodolfo is a [...] denies any chest pain similar to his AK. 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 Weight- 184.00 lbs. Height- 70.00 [...] oriented to time, person and place. <FONT COLOR=#[id number]><FONT POINT=10> MEDICATIONS UPDATED TODAY: IMPRESSIONS/PLAN <FONT COLOR=#[id number]><FONT POINT=10> Coronary artery disease, status post myocardial [...] me to participate in his care. <FONT COLOR=#[id number]><FONT POINT=10>TODAYS ORDERS 1. Cholesterol Fasting 5 months Herminia Franz Electronically signed by [facility] Data Conversion at 01/19/2014 4:19 AM CDT documented in this encounter Plan of Treatment Not on filedocumented as of this encounter Visit Diagnoses Not on filedocumented in this encounter Care Teams Hand Endband Cutter Relationship Specialty Start Date End Date Andrey Tamez MD PCP - General 03/26/09 Bailey Doran MD PCP - General 09/20/00 03/25/[address], [address] [place] [address] Andrey Tamez MD PCP - Assigned PCP 09/11/12 11/08/18 [address] [place] [address] Andrey Tamez MD Assigned PCP 09/11/12 09/07/20 [address] [place] [address] documented as of this encounter
--- OUTSIDE RECORDS SUMMARY | 2022-07-28 08:09 | XMS_ITS | Encounter Summary ---
:1945 Author Organization [place] Address [address] [place] [address] Care Team Providers Name Role Phone Bailey Doran MD Primary Care Provider Encounter Details Date Type Department Care Team Description 03/23/2005 Discharge Summary [facility] Vicki Foreman (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 Acute myocardial infarction (DE), anterior. 2. Emergent left anterior descending (LAD) catheterization stenting for acute myocardial infarction. 3. Coronary artery disease of one vessel. 4. Type 2 diabetes mellitus. DISCHARGE MEDICATIONS: 1. Plavix 75 mg daily. 2. Aspirin 81 mg daily. 3. Metoprolol 50 mg b.i.d. 4. Lisinopril 5 mg daily. 5. Nitroglycerin 0.4 mg sublingual p.r.n. 6. Vytorin 10/20 mg one daily. DISCHARGE FOLLOW-UP: 1. Discharge follow-up will be in our office in 2-3 weeks. a. He will have an echocardiogram in one month to evaluate recovery of left ventricular function. 2. He has been asked to follow up with Dr. Bailey Doran in approximately one month. HOSPITAL COURSE: Cinthya Hartley is a 59-year-old gentleman who presented with an acute anterior myocardial infarction. He was taken for emergent catheterization with successful LAD stenting although there was no reflow episode for a period of time following stenting. However, he did quite well postoperatively and was rapidly back on his feet performing cardiac rehabilitation without any symptoms. In addition, angiography showed 30-40% right coronary and obtuse marginal lesions which are hemodynamically severe at this time. He had no significant arrhythmias and no heart failure and was at a good activity level; therefore, he was discharged home with the above plan. DISCHARGE INSTRUCTIONS: 1. It has been recommended that he be off of work for 2 weeks, then return to work half-time for one week, and if this is tolerated well he can return to full-time work without work limitations. A detailed Family Medical Leave Act (FMLA) form was completed for him at this time. 2. He will need outpatient cardiac rehabilitation and this will be scheduled. VICKI FOREMAN MD 121:4 [place]: [facility] Document: [id number] [place], [place] Name: CINTHYA HARTLEY Please refer to the Nursing Discharge Information Sheet for more detailed information regarding diet, physical activity limitations, medications and other pertinent instructions given to this patient upon discharge. DISCHARGE SUMMARY Page 2 of 2 LCN: CICU DSC: 03/19/2005 [place], [place] Name: CINTHYA HARTLEY MR#: : Admit Date: [id number] 1945 03/17/2005 Doctor: VICKI FOREMAN MD Please refer to the Nursing Discharge Information Sheet for more detailed information regarding diet, physical activity limitations, medications and other pertinent instructions given to this patient upon discharge. DISCHARGE SUMMARY Page 1 of 2 documented in this encounter Plan of Treatment Not on filedocumented as of this encounter Visit Diagnoses Not on filedocumented in this encounter Care Teams Fiberglass Boat Maker Relationship Specialty Start Date End Date Bailey Doran MD PCP - General 09/20/00 03/25/09 [address] , [facility] [address] [place] [address] documented as of this encounter
--- OUTSIDE RECORDS SUMMARY | 2022-07-28 08:09 | XMS_ITS | Encounter Summary ---
:1945 Author Organization [facility] Address [address] [place] [address]. [place] [address] Care Team Providers Name Role Phone Andrey Tamez MD Primary Care Provider Bailey Doran MD Primary Care Provider Encounter Details Date Type Department Care Team Description 04/10/2005 Historic Results [facility]-Anastacio Madsen MD Hospitalists [address] 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
--- OUTSIDE RECORDS SUMMARY | 2022-07-28 08:09 | XMS_ITS | Encounter Summary ---
:1945 Author Organization [facility] Address [address] [place] [address] Care Team Providers Name Role Phone Andrey Tamez MD Primary Care Provider Bailey Doran MD Primary Care Provider Andrey Tamez MD Unavailable Andrey Tamez MD Unavailable Encounter Details Date Type Department Care Team Description 07/06/2005 Office Visit-[facility] Heart Unknown, Yassine tay MD [address] [address] Social History Tobacco Use Types Packs/Day Years Used Date Smoking Tobacco: Former Cigarettes 0.5 16 Quit : 09/06/1978 Alcohol Use Standard Drinks/Week Comments Yes 10 (1 standard drink = 0.6 oz pure alcoh ol) Sex Assigned at Date Recorded 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 DATE: 07/06/2005 RODOLFO HARTLEY DATE OF : 1945 AGE: [age] years old Referring Physician: MERA SHARMA Referring Clinic: [facility] CURRENT DIAGNOSES 1. NV-S/P Anterior, 412 2. PTCA-LAD FLORI stent 03/2005 [...] Followup of - CAD and Followup of NV-S/P Anterior HISTORY OF PRESENT ILLNESS I had [...] on filedocumented in this encounter Care Teams Bottle House Quality Control Technician Relationship Specialty Start Date End Date Andrey Tamez MD PCP - General 03/26/09 Bailey Doran MD PCP - General 09/20/00 03/25/[address], [address] [place], [place] [phone] Andrey Tamez MD PCP - Assigned PCP 09/11/12 11/08/18 [address] [place], [place] [phone] Andrey Tamez MD Assigned PCP 09/11/12 09/07/20 [address] [place], [place] [phone] documented as of this encounter
--- OUTSIDE RECORDS SUMMARY | 2022-07-28 08:09 | XMS_ITS | Encounter Summary ---
:1945 Author Organization [facility] Address [address] [place] [address]. 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
--- OUTSIDE RECORDS SUMMARY | 2022-07-28 08:09 | XMS_ITS | Encounter Summary ---
:1945 Author Organization [facility] Address [address] [place] [address] Care Team Providers Name Role Phone Andrey Tamez MD Primary Care Provider Bailey Dorna MD Primary Care Provider Encounter Details Date Type Department Care Team Description 04/06/2005 Historic Results [facility]-Anastacio Madsen MD Hospitalists [address] [facility] [address] [place], [place] [phone] (Wo rk) Social History Tobacco Use Types Packs/Day Years Used Date Smoking Tobacco: Former Cigarettes 0.5 16 Quit : 09/06/1978 Alcohol Use Standard Drinks/Week Comments Yes 10 (1 standard drink = 0.6 oz pure alcoh ol) Sex Assigned at Date Recorded 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
--- OUTSIDE RECORDS SUMMARY | 2022-07-28 08:09 | XMS_ITS | Encounter Summary ---
:1945 Author Organization [place] Address [address] [place] [address] Care Team Providers Name Role Phone Bailey Doran MD Primary Care Provider Encounter Details Date Type Department Care Team Description 11/22/2001 Telephone [facility] Bailey Doran MD [address] [place] [address] [address] [address] [place] [address] [place] [address] (Wo rk) Social History Tobacco Use Types Packs/Day Years Used Date Smoking Tobacco: Former Cigarettes 0.5 16 Quit : 09/06/1978 Alcohol Use Standard Drinks/Week Comments Yes 10 (1 standard drink = 0.6 oz pure alcoh ol) Sex Assigned at Date Recorded 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 Contact: Pharmacy calling for refill on Pt's lipitor. Pt was informed back in oct to make an appt for fasting labs. Rx denied. documented in this encounter Plan of Treatment Not on filedocumented as of this encounter Visit Diagnoses Not on filedocumented in this encounter Care Teams Hot Roll Inspector Relationship Specialty Start Date End Date Bailey Doran MD PCP - General 09/20/00 03/25/[address], [address] [place] [address] documented as of this encounter
--- OUTSIDE RECORDS SUMMARY | 2022-07-28 08:09 | XMS_ITS | Encounter Summary ---
:1945 Author Organization [facility] Address [address] [place] [address] Care Team Providers Name Role Phone Andrey Tamez MD Primary Care Provider Bailey Doran MD Primary Care Provider Encounter Details Date Type Department Care Team Description 03/18/2005 Historic Results [facility] Everton Rivera Boyds Eva Mccoy MD [address] [id number] [phone] Social History Tobacco Use Types Packs/Day Years Used Date Smoking Tobacco: Former Cigarettes 0.5 16 Quit : 09/06/1978 Alcohol Use Standard Drinks/Week Comments Yes 10 (1 standard drink = 0.6 oz pure alcoh ol) Sex Assigned at Date Recorded 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 documented in this encounter Results EKG 12 LEAD (03/18/2005 9:13 AM CDT) [facility] Method Time Signature Ventricular Rate 91 BPM RADIOLOGY RESULTS Atrial Rate 91 BPM RADIOLOGY RESULTS AR Interval 158 ms RADIOLOGY RESULTS QRS Duration 84 ms RADIOLOGY RESULTS QT 394 ms RADIOLOGY RESULTS QTc 484 ms RADIOLOGY RESULTS P [place] 60 degrees RADIOLOGY RESULTS R AXIS 58 degrees RADIOLOGY RESULTS T [place] 104 degrees RADIOLOGY RESULTS Interpretation Sinus rhythm [...] on filedocumented in this encounter Care Teams Logistic Manager Relationship Specialty Start Date End Date Andrey Tamez MD PCP - General 03/26/09 Bailey Doran MD PCP - General 09/20/00 03/25/[address], [address] [place] [address] documented as of this encounter
--- OUTSIDE RECORDS SUMMARY | 2022-07-28 08:09 | XMS_ITS | Encounter Summary ---
:1945 Author Organization [facility] Address [address] [place] [address] Care Team Providers Name Role Phone Andrey Tamez MD Primary Care Provider Bailey Doran MD Primary Care Provider Andrey Tamez MD Unavailable Andrey Tamez MD Unavailable Encounter Details Date Type Department Care Team Description 03/17/2005 Historic Results [facility] Heart Unknown, [facility] ider [address] [address] Social History Tobacco Use Types Packs/Day Years Used Date Smoking Tobacco: Former Cigarettes 0.5 16 Quit : 09/06/1978 Alcohol Use Standard Drinks/Week Comments Yes 10 (1 standard drink = 0.6 oz pure alcoh ol) Sex Assigned at Date Recorded 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
--- OUTSIDE RECORDS SUMMARY | 2022-07-28 08:09 | XMS_ITS | Encounter Summary ---
:1945 Author Organization [place] Address [address] [place] [address] Care Team Providers Name Role Phone Andrey Tamez MD Primary Care Provider Bailey Doran MD Primary Care Provider Encounter Details Date Type Department Care Team Description 03/17/2005 Historic Straight Knife Cutter Machine INTERFACED REPORT Jaye Barrett MD [facility] [address] [place] [address] (Wo rk) Social History Tobacco Use Types Packs/Day Years Used Date Smoking Tobacco: Former Cigarettes 0.5 16 Quit : 09/06/1978 Alcohol Use Standard Drinks/Week Comments Yes 10 (1 standard drink = 0.6 oz pure alcoh ol) Sex Assigned at Date Recorded 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 Jadiel Rivera, regarding the patient. He [...] was then transferred acutely via ICLS to [facility], slab depiler operator under Dr. Jadiel Rivera, for angiography and [...] The patient was transferred via ICLS to [facility] for further evaluation in a stable cardiac condition. Critical care time spent with the patient was 40 minutes. [id number] _ JAYE ADAMS MD MT: Document: [id number] CC: JAYE ADAMS MD [place], [place] Name: MR#: RODOLFO HARTLEY [id number] EMERGENCY ROOM ENCOUNTER Page 3 of 3 LCN: ERA DSC: 03/17/2005 [place], [place] Name: MR#: RODOLFO HARTLEY [id number] : Admit Date: Account #: 1945 03/17/2005 [id number] Doctor: JAYE ADAMS MD EMERGENCY ROOM ENCOUNTER Page 1 of 3 HEALTH PROVIDER documented in this encounter Plan of Treatment Not on filedocumented as of this encounter Visit Diagnoses Not on filedocumented in this encounter Care Teams Account Service Associate Relationship Specialty Start Date End Date Andrey Tamez MD PCP - General 03/26/09 Bailey Doran MD PCP - General 09/20/00 03/25/[address], [address] [place] [address] documented as of this encounter
--- OUTSIDE RECORDS SUMMARY | 2022-07-28 08:09 | XMS_ITS | Encounter Summary ---
:1945 Author Organization [facility] Address [address] [place] [address] Care Team Providers Name Role Phone Andrey Tamez MD Primary Care Provider Bailey Doran MD Primary Care Provider Andrey Tamez MD Unavailable Andrey Tamez MD Unavailable Encounter Details Date Type Department Care Team Description 03/11/2006 Historic Results [facility] Heart Unknown, [facility] ider [address] [address] Social History Tobacco Use Types Packs/Day Years Used Date Smoking Tobacco: Former Cigarettes 0.5 16 Quit : 09/06/1978 Alcohol Use Standard Drinks/Week Comments Yes 10 (1 standard drink = 0.6 oz pure alcoh ol) Sex Assigned at Date Recorded 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
--- OUTSIDE RECORDS SUMMARY | 2022-07-28 08:09 | XMS_ITS | Encounter Summary ---
:1945 Author Organization [place] Address [address] [place] [address] Care Team Providers Name Role Phone Andrey Tamez MD Primary Care Provider Bailey Doran MD Primary Care Provider Encounter Details Date Type Department Care Team Description 03/17/2005 Historic Results [facility] Everton Rivera [place] Eva Mccoy MD [address] [place] [address] [address] [phone] Social History Tobacco Use Types Packs/Day Years Used Date Smoking Tobacco: Former Cigarettes 0.5 16 Quit : 09/06/1978 Alcohol Use Standard Drinks/Week Comments Yes 10 (1 standard drink = 0.6 oz pure alcoh ol) Sex Assigned at Date Recorded 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 documented as of this encounter Plan [...] 9:44 CDT AM CDT Jadiel Rivera MD [facility] [place] Performing Organization Address City/State/ZIP Code Phon e Number MISYS (ABNORMAL) Glucose by meter (03/17/2005 5:05 PM CDT) P athologist Signature Glucose 160 (H) 60 - 110 [place]IS[place] mg/dL Specimen Anatomical Collection Method Collection Time Receive d Time (Source) Location / / Volume Laterality 03/17/2005 5:05 PM 5 9:43 CDT AM CDT Jadiel FUNES - [place] Performing Organization Address [facility] Code Phon e Number MISYS (ABNORMAL) Glucose by meter (03/17/2005 11:42 AM CDT) P athologist Signature Glucose 164 (H) 60 - 110 [place] mg/dL Specimen Anatomical Collection Method Collection Time Receive d Time (Source) Location / / Volume Laterality 03/17/2005 11:42 03/18/2005 9:40 AM CDT AM CDT Jadiel Rivera MD LAB - [place] POCT Performing Organization Address [facility] Phon e Number MISYS (ABNORMAL) Troponin I (03/17/2005 11:35 AM CDT) P athologist Signature Troponin I 179.89 (HH) 0.00 - MISYS 0.40 ug/L Specimen Anatomical Collection Method Collection Time Receive d Time (Source) Location / / Volume Laterality 03/17/2005 11:35 03/17/2005 AM CDT 11:30 AM CDT Jadiel Rivera MD LAB - BLOOD ORDERABLES Performing Organization Address [facility] Phon e Number MISYS (ABNORMAL) Troponin I [...] LAB - BLOOD ORDERABLES Performing Organization Address [facility] Phon e Number MISYS Platelet count (03/17/2005 7:00 AM CDT) P athologist Signature Platelet Count 194 150 - 450 MISYS 10e9/L Specimen Anatomical Collection Method Collection Time Receive d Time (Source) Location / / Volume Laterality 03/17/2005 7:00 AM 5 7:00 CDT AM CDT Jadiel Rivera MD LAB - BLOOD ORDERABLES Performing Organization Address [facility] Phon e Number MISYS (ABNORMAL) Partial thromboplastin time (03/17/2005 7:00 AM CDT) P athologist Signature PTT 51 (H) 22 - 37 sec MISYS Specimen Anatomical Collection Method Collection Time Receive d Time (Source) Location / / Volume Laterality 03/17/2005 7:00 AM 5 7:00 CDT AM CDT Jadiel Rivera MD LAB - BLOOD ORDERABLES Performing Organization Address [facility] Phon e Number MISYS INR (03/17/2005 2:00 AM CDT) P athologist Signature INR 0.97 0.86 - 1.14 MISYS Comment: Specimen slightly hemolyzed Specimen Anatomical Collection Method Collection Time Receive d Time (Source) Location / / Volume Laterality 03/17/2005 2:00 AM 5 2:06 CDT AM CDT Amy Ulrich MD LAB - BLOOD ORDERABLES Performing Organization Address [facility] Phon e Number MISYS Partial thromboplastin time (03/17/2005 2:00 AM CDT) P athologist Signature PTT 28 22 - 37 sec MISYS Comment: Specimen slightly hemolyzed Specimen Anatomical Collection Method Collection Time Receive d Time (Source) Location / / Volume Laterality 03/17/2005 2:00 AM 5 2:06 CDT AM CDT Amy Ulrich MD LAB - BLOOD ORDERABLES Performing Organization Address [facility] Phon e Number MISYS (ABNORMAL) Comprehensive [...] LAB - BLOOD ORDERABLES Performing Organization Address [facility] Phon e Number MISYS Troponin I (03/17/2005 2:00 AM CDT) athologist Signature Troponin I 0.36 0.00 - 0.40 MISYS ug/L Specimen Anatomical Collection Method Collection Time Receive d Time (Source) Location / / Volume Laterality 03/17/2005 2:00 AM 5 2:06 CDT AM CDT Amy Ulrich MD LAB - BLOOD ORDERABLES Performing Organization Address [facility] Phon e Number MISYS Myoglobin (03/17/2005 2:00 AM CDT) P athologist Signature Myoglobin 43 <120 ug/L MISYS Specimen Anatomical Collection Method Collection Time Receive d Time (Source) Location / / Volume Laterality 03/17/2005 2:00 AM 5 2:06 CDT AM CDT Amy Ulrich MD LAB - BLOOD ORDERABLES Performing Organization Address City/[facility] Phon e Number MISYS (ABNORMAL) Hemogram differential [...] on filedocumented in this encounter Care Teams Rosin Barrel Filler Relationship Specialty Start Date End Date Andrey Tamez MD PCP - General 03/26/09 Bailey Doran MD PCP - General 09/20/00 03/25/09 [address] [facility] 100 [place] [address] documented as of this encounter
--- OUTSIDE RECORDS SUMMARY | 2022-07-28 08:09 | XMS_ITS | Encounter Summary ---
:1945 Author Organization [place] Address [address] [place] [address] Care Team Providers Name Role Phone Miguel Woodward MD Primary Care Provider Reason for Visit Reason Comments Refill Request lipitor Encounter Details Date Type Department Care Team Description 10/31/2001 Refill [facility] Miguel Woodward MD Refill Request (lipitor) Physicians [address], [address] [place] [address] 100 [address] [place] [phone] Social History Tobacco Use Types Packs/Day Years Used Date Smoking Tobacco: Former Cigarettes 0.5 16 Quit : 09/06/1978 Alcohol Use Standard Drinks/Week Comments Yes 10 (1 standard drink = 0.6 oz pure alcoh ol) Sex Assigned at Date Recorded 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 >> MIGUEL WOODWARD Mon Oct 31, 2001 8:49 AM OK #20. Due for fasting blood work every 6 months. Call patient. >> CATIE COREAS Mon Oct 31, 2001 8:35 AM >> CALL RECEIVED. Contact: documented in this encounter Plan of Treatment Not on filedocumented as of this encounter Visit Diagnoses Diagnosis Mixed hyperlipidemia - Primary documented in this encounter Care Teams Dietary Aide Cook Relationship Specialty Start Date End Date Miguel Woodward MD PCP - General 09/20/00 03/25/[address], [facility] 100 [place] [address] documented as of this encounter
--- OUTSIDE RECORDS SUMMARY | 2022-07-28 08:09 | XMS_ITS | Encounter Summary ---
:1945 Author Organization [place] Address [address] [place] [address] Care Team Providers Name Role Phone Andrey Tamez MD Primary Care Provider Bailey Doran MD Primary Care Provider Andrey Tamez MD Unavailable Andrey Tamez MD Unavailable Encounter Details Date Type Department Care Team Description 03/26/2006 Historic Results [facility] Heart Unknown, [facility] ider [address] [address] Social History Tobacco Use Types Packs/Day Years Used Date Smoking Tobacco: Former Cigarettes 0.5 16 Quit : 09/06/1978 Alcohol Use Standard Drinks/Week Comments Yes 10 (1 standard drink = 0.6 oz pure alcoh ol) Sex Assigned at Date Recorded 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
--- OUTSIDE RECORDS SUMMARY | 2022-07-28 08:09 | XMS_ITS | Encounter Summary ---
:1945 Author Organization [place] Address [address] [place] [address] Care Team Providers Name Role Phone Bailey Doran MD Primary Care Provider Encounter Details Date Type Department Care Team Description 03/17/2005 Admission [facility] Jadiel Rivera (Metal Stamper) Clinic Bryant Mccoy MD Laboratory [address] [place] [address] [place] [address] [phone] Social History Tobacco Use Types Packs/Day Years Used Date Smoking Tobacco: Former Cigarettes 0.5 16 Quit : 09/06/1978 Alcohol Use Standard Drinks/Week Comments Yes 10 (1 standard drink = 0.6 oz pure alcoh ol) Sex Assigned at Date Recorded 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 Mr. Hartley has a [...] post-myocardial infarction cares including KELI inhibitor, beta tiki, statin and Plavix as indicated. Thank you for allowing me to participate in Mr. Hartley's care. JADIEL RIVERA MD MT: ms Document: [id number] [place], [place] Name: RODOLFO HARTLEY HISTORY AND PHYSICAL Page 3 of 2 LCN:JANETH DSC: [place], [place] Name: RODOLFO HARTLEY MR#: : Admit Date: -30 1945 03/17/2005 Doctor: JADIEL RIVERA MD HISTORY AND PHYSICAL Page 1 of 2 documented in this encounter Plan of Treatment Not on filedocumented as of this encounter Visit Diagnoses Not on filedocumented in this encounter Care Teams Chyron Operator Relationship Specialty Start Date End Date Bailey Doran MD PCP - General 09/20/00 03/25/[address], [place] [address] [place] [address] documented as of this encounter
--- OUTSIDE RECORDS SUMMARY | 2022-07-28 08:09 | XMS_ITS | Encounter Summary ---
:1945 Author Organization [place] Address [address] [place] [address] Care Team Providers Name Role Phone Andrey Tamez MD Primary Care Provider Bailey Doran MD Primary Care Provider Encounter Details Date Type Department Care Team Description 04/01/2005 Historic Results [facility]Anastacio Madsen MD Hospitalists [address] [facility] [address] [place], [place] [address] (Wo rk) Social History Tobacco Use Types Packs/Day Years Used Date Smoking Tobacco: Former Cigarettes 0.5 16 Quit : 09/06/1978 Alcohol Use Standard Drinks/Week Comments Yes 10 (1 standard drink = 0.6 oz pure alcoh ol) Sex Assigned at Date Recorded 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
--- OUTSIDE RECORDS SUMMARY | 2022-07-28 08:09 | XMS_ITS | Encounter Summary ---
:1945 Author Organization [place] Address [address] [place] [address] Care Team Providers Name Role Phone Miguel Woodward MD Primary Care Provider Reason for Visit Reason Comments Refill Request lipitor Encounter Details Date Type Department Care Team Description 11/24/2001 Refill [facility] Miguel Woodward MD Refill Request (lipitor) Physicians [address], [address] [place] [address] 100 [address] [place] [phone] Social History Tobacco Use Types Packs/Day Years Used Date Smoking Tobacco: Former Cigarettes 0.5 16 Quit : 09/06/1978 Alcohol Use Standard Drinks/Week Comments Yes 10 (1 standard drink = 0.6 oz pure alcoh ol) Sex Assigned at Date Recorded 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 Contact: sarai [phone] Pt in for lab draw today. Pt will need a refill on Lipitor called to pharmacy. Ok to fold until LES back from vacation. Pt given samples. documented in this encounter Plan of Treatment Not on filedocumented as of this encounter Visit Diagnoses Diagnosis Mixed hyperlipidemia - Primary documented in this encounter Care Teams Harness Brusher Relationship Specialty Start Date End Date Miguel Woodward MD PCP - General 09/20/00 03/25/09 [address] [facility] 100 [place] [address] documented as of this encounter
--- OUTSIDE RECORDS SUMMARY | 2022-07-28 08:09 | XMS_ITS | Encounter Summary ---
:1945 Author Organization [place] Address [address] [place] [address] Care Team Providers Name Role Phone Andrey Tamez MD Primary Care Provider Bailey Doran MD Primary Care Provider Andrey Tamez MD Unavailable Andrey Tamez MD Unavailable Encounter Details Date Type Department Care Team Description 04/20/2005 Historic Results [facility] Heart Unknown, [facility] ider [address] [address] Social History Tobacco Use Types Packs/Day Years Used Date Smoking Tobacco: Former Cigarettes 0.5 16 Quit : 09/06/1978 Alcohol Use Standard Drinks/Week Comments Yes 10 (1 standard drink = 0.6 oz pure alcoh ol) Sex Assigned at Date Recorded 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 Provider Scan CV ECHO ORDERABLES documented in this encounter Visit Diagnoses Not on filedocumented in this encounter Care Teams Statistician Relationship Specialty Start Date End Date Andrey Tamez MD PCP - General 03/26/09 Bailey Doran MD PCP - General 09/20/00 03/25/[address], [place] [address] [place], [place] [phone] Andrey Tamez MD PCP - Assigned PCP 09/11/12 11/08/18 [address] [place], [place] [address] Andrey Tamez MD Assigned PCP 09/11/12 09/07/20 [address] [place], [place] [address] documented as of this encounter
--- OUTSIDE RECORDS SUMMARY | 2022-07-28 08:09 | XMS_ITS | Encounter Summary ---
:1945 Author Organization [place] Address [address] [place] [address] Care Team Providers Name Role Phone Andrey Tamez MD Primary Care Provider Bailey Doran MD Primary Care Provider Andrey Tamez MD Unavailable Andrey Tamez MD Unavailable Encounter Details Date Type Department Care Team Description 03/22/2006 Office Visit-[facility] Heart Unknown, Yassine tay MD [address] [address] Social History Tobacco Use Types Packs/Day Years Used Date Smoking Tobacco: Former Cigarettes 0.5 16 Quit : 09/06/1978 Alcohol Use Standard Drinks/Week Comments Yes 10 (1 standard drink = 0.6 oz pure alcoh ol) Sex Assigned at Date Recorded 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 - CAD, 414.00 2. - Hyperlipidemia, 272.4 3. MD-S/P Anterior, 412 4. - Cardiomyopathy Ischemic, 414.8 [...] which was an improvement from 35% post MD. There is a trace of mitral regurgitation, [...] Seat Belt Use - always; Occupation - [employer]; Residence - lives with ; Place of [...] has had no symptoms similar to his MD. I would ask him to continue exercising [...] Foreman MD annual follow up Salas Franz. Electronically signed by [facility], [facility] Data Conversion at 01/19/2014 4:19 AM CDT documented in this encounter Plan of Treatment Not on filedocumented as of this encounter Visit Diagnoses Not on filedocumented in this encounter Care Teams Methods Specialist Relationship Specialty Start Date End Date Andrey Tamez MD PCP - General 03/26/09 Bailey Doran MD PCP - General 09/20/00 03/25/[address], [place] [address] [place], [place] [address] Andrey Tamez MD PCP - Assigned PCP 09/11/12 11/08/18 [address] [place], [place] [address] Andrey Tamez MD Assigned PCP 09/11/12 09/07/20 [address] [place], [place] [address] documented as of this encounter
--- OUTSIDE RECORDS SUMMARY | 2022-07-28 08:10 | XMS_ITS | Encounter Summary ---
:1945 Author Organization [place] Address [address] [place] [address] Care Team Providers Name Role Phone Bailey Doran MD Primary Care Provider Reason for Visit Reason Comments Results Encounter Details Date Type Department Care Team Description 11/01/2000 Telephone [facility] ysicians Bailey Doran MD Results [address] [place] [address] [place] [address] [address] [place] [address] [place] [address] (Wo rk) Social History Tobacco Use Types Packs/Day Years Used Date Smoking Tobacco: Former Cigarettes 0.5 16 Quit : 09/06/1978 Alcohol Use Standard Drinks/Week Comments Yes 10 (1 standard drink = 0.6 oz pure alcoh ol) Sex Assigned at Date Recorded 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 and told him that he [...] result numbers. His wor k number is [phone]. - Juliana Larson Started and completed on WedNov 01, 2000 8:59 AM documented in this encounter Plan of Treatment Not on filedocumented as of this encounter Visit Diagnoses Not on filedocumented in this encounter Care Teams Executive Vice President Relationship Specialty Start Date End Date Bailey Doran MD PCP - General 09/20/00 03/25/09 [address] [facility] 100 [place] [address] documented as of this encounter
--- OUTSIDE RECORDS SUMMARY | 2022-07-28 08:10 | XMS_ITS | Encounter Summary ---
:1945 Author Organization [place] Address [address] [place] [address] Care Team Providers Name Role Phone Bailey Doran MD Primary Care Provider Reason for Visit Reason Comments Blood Draw Encounter Details Date Type Department Care Team Description 03/16/2001 Office Visit [facility] Bailey Doran, DIABET ES UNCOMPL ADULT-TYPE II (Primary Dx); Physicians MIXED HYPERLIPIDEMIA [address] , [address] [facility] 100 [place] [address] [phone] Social History Tobacco Use Types Packs/Day Years Used Date Smoking Tobacco: Former Cigarettes 0.5 16 Quit : 09/06/1978 Alcohol Use Standard Drinks/Week Comments Yes 10 (1 standard drink = 0.6 oz pure alcoh ol) Sex Assigned at Date Recorded 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 HEMOGLOBIN A1C [66756.001-90] Order #: [id number] Class: Katey skelton. METFORMIN HCL TABS 50 [...] P athologist Signature Hemoglobin A1C 5.9 PERCENT [facility] Specimen (Source) Anatomical Location Collection Method / Collectio n Time Received Time / Laterality Volume 03/16/2001 Narrative [facility] - 03/17/2001 1:31 AM CDT ?REFERENCE RANGE: NON-DIABETIC ??<6.5% THE [employer] RECOMM ENDS THAT THE GOAL OF THERAPY SHOULD BE A HEM OGLOBIN A1C OF <7% AND THAT PHYSICIANS SHOULD RE EVALUATE THE TREATMENT REGIMEN IN PATIENTS WITH H EMOGLOBIN A1C VALUES CONSISTENTLY >8.0%. Bailey Doran MD LABORATORY Performing Organization Address City/State/ZIP Code Phon e Number [facility] MICROALBUMIN, SEMIQUANT (03/16/2001 11:37 AM CDT) athologist Signature Microalbumin normal [facility] Specimen (Source) Anatomical Collection Method Collection Time Re ceived Time Location / / Volume Laterality 03/16/2001 11:37 AM CDT Narrative [facility] - 03/16/2001 11:37 AM CDT ALB: 10 mg/l CRE: 50 mg/dl A:C: 30 mg/ g Bailey Doran MD LABORATORY Performing Organization Address City/[facility] Phon e Number [facility] documented in this encounter Visit Diagnoses Diagnosis Type II or unspecified type diabetes vijaya litus without mention of complication, not stated as uncontrolled - Primary Mixed hyperlipidemia documented in this encounter Care Teams Human Resources Benefits Assistant Relationship Specialty Start Date End Date Bailey Doran MD PCP - General 09/20/00 03/25/09 [address] , [facility] 100 [place] [address] documented as of this encounter
--- OUTSIDE RECORDS SUMMARY | 2022-07-28 08:10 | XMS_ITS | Encounter Summary ---
:1945 Author Organization [place] Address [facility] [place] [address] Care Team Providers Name Role Phone Andrey Tamez MD Primary Care Provider Bailey Doran MD Primary Care Provider Andrey Tamez MD Unavailable Andrey Tamez MD Unavailable Encounter Details Date Type Department Care Team Description [facility] [place] [facility] Physicians MD GALVIN HX-CARDIOVAS DIS NEC; [address] [place], [place] [id number] [place] [address] DIABETES UNCOMPL ADULT-TYPE II [address] [place] [address] [place], [place] [phone] (Wo rk) [address] [phone] Social History Tobacco Use Types Packs/Day Years Used Date Smoking Tobacco: Former Cigarettes 0.5 16 Quit : 09/06/1978 Smokeless Tobacco: Never Alcohol Use Standard Drinks/Week Comments Yes 10 (1 standard drink = 0.6 oz pure alcoh ol) A drink every 1-2 weeks. 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 documented as of this encounter Progress Notes 11/12/2000 11:59 PM SHARED SERVICES REPRESENTATIVE Stress Echo for cholesterol, diabetes, family history [...] uncontrolled documented in this encounter Care Teams Dampener Relationship Specialty Start Date End Date Andrey Tamez MD PCP - General 03/26/09 Bailey Doran MD PCP - General 09/20/00 03/25/[address], [address] [address] [place], [place] [address] Andrey Tamez MD PCP - Assigned PCP 09/11/12 11/08/18 [address] [place], [place] [address] Andrey Tamez MD Assigned PCP 09/11/12 09/07/20 [address] [place] [address] documented as of this encounter
--- OUTSIDE RECORDS SUMMARY | 2022-07-28 08:10 | XMS_ITS | Encounter Summary ---
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 Provider Abstract LABORATORY Performing Organization Address City/[facility] Phon e Number ADAM MARTINEZ (ABNORMAL) HEMOGRAM W/O PLATELET COUNT (05/19/2000) P [...]
--- OUTSIDE RECORDS SUMMARY | 2022-07-28 08:10 | XMS_ITS | Encounter Summary ---
:1945 Author Organization [place] Address [address] [place] [address] Care Team Providers Name Role Phone Miguel Woodward MD Primary Care Provider Reason for Visit Reason Comments Refill Request Encounter Details Date Type Department Care Team Description 04/18/[address] 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 Contact: tgt [phone], pt Pt rec'd a letter stating to take liptior. Pt will need Rx-last one 02/04. [place]. documented in this encounter Plan of Treatment Not on filedocumented as of this encounter Visit Diagnoses Diagnosis Mixed hyperlipidemia - Primary documented in this encounter Care Teams Hydrogen Power Plant Engineer Relationship Specialty Start Date End Date Miguel Woodward MD PCP - General 09/20/00 03/25/[address], [facility] 100 [place] [address] documented as of this encounter
--- OUTSIDE RECORDS SUMMARY | 2022-07-28 08:10 | XMS_ITS | Encounter Summary ---
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 Provider Abstract LABORATORY Performing Organization Address City/[facility] Phon e Number ADAM MARTINEZ (ABNORMAL) CLINICAL CHEMISTRY TEST (05/21/2000) P athologist Signature ALT 233 (A) 0 - 70 U/L [facility] AST 32 0 - 55 U/L [facility] Calcium 7.9 (A) 8.5 - 10.4 [facility] MG/DL Creatinine 0.8 0.8 - 1.7 [facility] MG/DL Glucose 179 (A) 60 - 115 [facility] MG/DL Urea Nitrogen 6 (A) 7 - 30 [facility] MG/DL Specimen (Source) Anatomical Location Collection Method / Collectio n Time Received Time / Laterality Volume 05/21/2000 Narrative [facility] - 05/21/2000 Abstracted from paper copy. Provider Abstract LABORATORY Performing Organization Address [facility] Phon e Number ADAM MARTINEZ (ABNORMAL) HEMOGRAM [...] copy. Provider Abstract LABORATORY Performing Organization Address City/[facility]/ZIP Code Phon e Number [facility] documented in this encounter Visit Diagnoses Diagnosis ABSTRACTING RESULTS - Primary documented in this encounter
--- OUTSIDE RECORDS SUMMARY | 2022-07-28 08:10 | XMS_ITS | Encounter Summary ---
:1945 Author Organization [place] Address [facility], [facility] [place] [address] Care Team Providers Name Role Phone Bailey Doran MD Primary Care Provider Reason for Referral - Closed Specialty Diagnoses / Procedures Referred By Contact Refer red To Contact Family Practice Diagnoses Routine general medical examination at a health care facility Bailey Doran MD [place], Barry Alan, [address], [facility] [phone] [place] [address] [place] [address] Fax: Referral ID Status Reason Start Date Expiration Date Visits Requ ested Visits Authorized [id number] Closed 10/27/2000 09/05/2011 1 1 UP / OPERATOR Reason for Visit Reason Comments Physical Encounter Details Date Type Department Care Team Description 10/27/2000 Office Visit [place] Bailey Branham ROUTIN E MEDICAL EXAM (Primary Dx); Physicians PANCREATIC DISORDER NOS; [address], VACCINE FOR TETANUS + DIPHTH [place]; [address] [place] [address] ABN [place] [address] [phone] Social History Tobacco Use Types Packs/Day Years Used Date Smoking Tobacco: Former Cigarettes 0.5 16 Quit : 09/06/1978 Alcohol Use Standard Drinks/Week Comments Yes 10 (1 standard drink = 0.6 oz pure alcoh ol) Sex Assigned at Date Recorded Male 10/03/2020 10:26 AM SET UP / OPERATOR documented as of this encounter Last Filed Vital Signs Vital Sign Reading Time Taken Comments Blood Pressure 134/82 10/27/2000 9:00 AM SET UP / OPERATOR Pulse 78 10/27/2000 9:00 AM SET UP / OPERATOR Temperature 36.7 ??C (98 ??F) 10/27/2000 9:00 AM SET UP / OPERATOR Respiratory Rate - - Oxygen Saturation - - Inhaled Oxygen Concentration - - Weight 83.7 kg (184 lb 8 oz) 10/27/2000 9:00 AM SET UP / OPERATOR Height 177.8 cm (5' 10) 10/27/2000 9:00 AM SET UP / OPERATOR Body Mass Index 26.47 10/27/2000 9:00 AM SET UP / OPERATOR documented in this encounter Progress Notes 10/27/2000 9:00 AM SET UP / OPERATOR Chief Complaint: Rodolfo Quevedo is a 55 [...] TO FAMILY PRACTICE [[id number]] Order # : [id number] Class: External referral for stress ECHO. TD IMMUNIZATION,IM/JET [[id number]] Order #: [id number] Cl ass: Normal documented in this encounter [...] Routine Medical Results for this (TUMOR MARKER) SET UP / OPERATOR Exam procedure are in the results section. HCL GLYCATED Routine 10/28/2000 1:46 AM Abn Glucose Toleran Re sults for this HEMOGLOBIN SET UP / OPERATOR Test procedure are i n the results section. HCL HEPATIC PANEL Routine 10/28/2000 12:55 AM Pancreatic Disor yelitza Results for this SET UP / OPERATOR Nos procedure are in Routine Medical the results Exam section. HCL LIPID PANEL Routine 10/28/2000 12:55 AM Routine Medical Re sults for this SET UP / OPERATOR Exam procedure are i n the results section. HCL AMYLASE, SERUM Routine 10/28/2000 12:43 AM Pancreatic Diso rder Results for this SET UP / OPERATOR Nos procedure are in Routine Medical the results Exam section. HCL URINALYSIS Routine 10/27/2000 10:32 AM Routine Medical Res ults for this NONAUTO W/O SCOPE SET UP / OPERATOR Exam procedure are in [facility] the results section. CL AFF GLUCOSE, Routine 10/27/2000 10:03 AM Routine Medical Re sults for this FASTING SET UP / OPERATOR Exam procedure are i n the results section. ZZCL AFF HEMOGLOBIN Routine 10/27/2000 10:03 AM Routine Medica l Results for this SET UP / OPERATOR Exam procedure are i n the results section. HC VENOUS COLLECTION Routine 10/27/2000 9:29 AM Pancreatic Dis order SET UP / OPERATOR Nos Routine Medical Exam documented in this encounter Results PSA (10/28/2000 4:04 AM SET UP / OPERATOR) athologist Signature [place] PSA 1.5 0.0 - 4.0 [facility] NG/ML Specimen (Source) Anatomical Location Collection Method / Collectio n Time Received Time / Laterality Volume 10/27/2000 Narrative [facility] - 10/28/2000 4:04 AM SET UP / OPERATOR PSA RESULTS BETWEEN 4.0 AND 8.0 NG/ML MAY INDICATE BENIGN PROSTATIC HYPERTROPHY OR CANCER OF THE P ROSTATE. RESULTS GREATER THAN 8.0 NG/ML ARE MORE SUGGESTI VE OF PROSTATIC CANCER AND SHOULD BE EVALUATED WITH FOLL OW-UP STUDIES. Bailey Doran MD LABORATORY Performing Organization Address City/[facility] Phon e Number ADAM [place] HEMOGLOBIN A1C (10/28/2000 1:46 AM SET UP / OPERATOR) athologist Signature Hemoglobin A1C 6.3 UPTO7.0% [facility] PERCENT Comment: COMMENT: ?? A HEMOGLOBIN A1C [...] Doran MD LABORATORY Performing Organization Address City/State/ZIP [facility] Phon e Number ADAM [place] (ABNORMAL) A.M.A. LIPID PANEL (10/28/2000 12:55 AM SET UP / OPERATOR) [facility] gist Method Time Signature Comments DNR [facility] Triglycerides 243 (H) 40 - 199 MG/DL [facility] Cholesterol 270 (H) 120 - 199 [facility] MG/DL [place] Cholesterol 87 PERCENTILE [facility] Percentile [place] HDL Cholesterol 37.6 35ORHIGHER [facility] MG/DL [place] LDL Cholesterol 184 (H) 75 - 129 [...] TO SECOND REPORT OF THE NCEP IN [facility] 1993;269:[id number] FOR GUIDELINES. Cholesterol/HDL Ratio 7.2 (H) 3.9 - 6.5 [facility] [place] Specimen (Source) Anatomical Location Collection Method / Collectio n Time Received Time / Laterality Volume 10/27/2000 Bailey Doran MD LABORATORY Performing Organization Address City/State/ZIP Code Phon e Number [facility] A.M.A. HEPATIC PANEL (10/28/2000 12:55 AM SET UP / OPERATOR) athologist Signature Comments DNR [facility] Protein Total 6.8 6.2 - 8.2 [facility] GM/DL Albumin 4.7 3.7 - 5.2 [facility] GM/DL Globulin 2.1 1.9 - 3.6 [facility] Calculated GM/DL A/G Ratio 2.2 1.1 - 2.3 [facility] Bilirubin Total 0.63 0.30 - [facility] 1.40 MG/DL Bilirubin Direct 0.09 0.04 - [facility] 0.20 MG/DL Alkaline 78 43 - 145 [facility] Phosphatase U/L AST 13 1 - 45 [facility] IU/L ALT 20 1 - 55 [facility] IU/L DNR 0.54 [facility] Specimen (Source) Anatomical Location Collection Method / Collectio n Time Received Time / Laterality Volume 10/27/2000 Bailey Doran MD LABORATORY Performing Organization Address City/[facility]/ZIP [facility] Phon e Number [facility] AMYLASE, SERUM (10/28/2000 12:43 AM SET UP / OPERATOR) athologist Signature Amylase 36 0 - 100 U/L [facility] Specimen (Source) Anatomical Location Collection Method / Collectio n Time Received Time / Laterality Volume 10/27/2000 Bailey Doran MD LABORATORY Performing Organization Address [facility] Phon e Number ADAM MARTINEZ URINALYSIS NONAUTO W/O SCOPE (10/27/2000 10:32 AM SET UP / OPERATOR) athologist Signature Glucose Urine neg neg - neg [facility] mg/dL Albumin Urine neg neg - neg [facility] mg/dL Specimen (Source) Anatomical Collection Method Collection Time Re ceived Time Location / / Volume Laterality 10/27/2000 10:32 AM SET UP / OPERATOR Bailey Doran MD LABORATORY Performing Organization Address City/[facility] Phon e Number [facility] (ABNORMAL) GLUCOSE, FASTING (10/27/2000 10:03 AM SET UP / OPERATOR) athologist Signature Glucose 128 (A) 60 - 120 [facility] mg/dL Specimen (Source) Anatomical Collection Method Collection Time Re ceived Time Location / / Volume Laterality 10/27/2000 10:03 AM SET UP / OPERATOR Bailey Doran MD LABORATORY Performing Organization Address City/State/ZIP Code Phon e Number [facility] HEMOGLOBIN (10/27/2000 10:03 AM SET UP / OPERATOR) athologist Signature Hemoglobin 16.7 14 - 18 [facility] GM/DL Specimen (Source) Anatomical Collection Method Collection Time Re ceived Time Location / / Volume Laterality 10/27/2000 10:03 AM SET UP / OPERATOR Bailey Doran MD LABORATORY Performing Organization Address City/State/ZIP Code Phon e Number [facility] documented in this encounter Visit Diagnoses Diagnosis Routine general medical examination at a health care facility - Primary Unspecified disorder of pancreatic inter nal secretion Need for prophylactic vaccination with t etanus-diphtheria (Td) Abnormal glucose documented in this encounter Care Teams Welding Machine Assembler Relationship Specialty Start Date End Date Bailey Doran MD PCP - General 09/20/00 03/25/[address], [facility] 100 [place] [address] documented as of this encounter
--- OUTSIDE RECORDS SUMMARY | 2022-07-28 08:10 | XMS_ITS | Encounter Summary ---
:1945 Author Organization [place] Address [address] [place] [address] Care Team Providers Name Role Phone Bailey Doran MD Primary Care Provider Encounter Details Date Type Department Care Team Description 04/08/2001 Orders Only [facility] Bailey Doran, MIXED HYPERLIPIDEMIA Physicians (Primary Dx) [address] , [address] [phone] Social History Tobacco Use Types Packs/Day Years Used Date Smoking Tobacco: Former Cigarettes 0.5 16 Quit : 09/06/1978 Alcohol Use Standard Drinks/Week Comments Yes 10 (1 standard drink = 0.6 oz pure alcoh ol) Sex Assigned at Date Recorded Male 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 LIPID PANEL (04/09/2001 12:30 AM CDT) [facility] Method Time Signature Comments DNR [facility] Triglycerides 169 (H) <150 MG/DL [facility] Cholesterol 246 (H) <200 MG/DL [facility] Cholesterol 73 PERCENTILE [facility] Percentile HDL Cholesterol 39 (L) >40 MG/DL [facility] LDL Cholesterol 173 (H) <100 MG/DL [facility] Calculated Comment: LDL CHOLESTEROL (MG/DL) GOALS AND [...] Address City/State/ZIP Code Phon e Number [facility] documented in this encounter Visit Diagnoses Diagnosis Mixed hyperlipidemia - Primary documented in this encounter Care Teams Hematology Supervisor Relationship Specialty Start Date End Date Bailey Doran MD PCP - General 09/20/00 03/25/[address], [place] [address] [place] [address] documented as of this encounter
--- OUTSIDE RECORDS SUMMARY | 2022-07-28 08:10 | XMS_ITS | Encounter Summary ---
:1945 Author Organization [place] Address [address] [place] [address] Care Team Providers Name Role Phone Bailey Doran MD Primary Care Provider Reason for Referral - Closed Specialty Diagnoses / Procedures Referred By Contact Refer red To Contact Diagnoses Type II or unspecified type diabetes mellitus without mention of complication, not stated as uncontrolled Bailey Doran MD [address], [facility] 100 [place] [address] Referral ID Status Reason Start Date Expiration Date Visits Requ ested Visits Authorized [id number] Closed 12/27/2000 09/05/2011 1 1 Reason for Visit Reason Comments Lipids recheck Diabetes Encounter Details Date Type Department Care Team Description 12/27/2000 Office Visit [facility] Bailey Doran, DIABET ES UNCOMPL ADULT-TYPE II (Primary Dx); Physicians MIXED HYPERLIPIDEMIA [address], [address] [place] [address] [place] [phone] Social History Tobacco Use Types Packs/Day Years Used Date Smoking Tobacco: Former Cigarettes 0.5 16 Quit : 09/06/1978 Alcohol Use Standard Drinks/Week Comments Yes 10 (1 standard drink = 0.6 oz pure alcoh ol) Sex Assigned at Date Recorded Male 10/03/2020 10:26 AM 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 LIPID PANEL [[id number]] Order #: [id number] Class: [facility] AST [[id number] 90] Order #: [id number] Class: [facility] HEMOGLOBIN A1C [[id number]] Order #: [id number] Class: [facility] Diabete s education referral. CONSULT TO OTHER SPECIALTY [[id number]] Order #: [id number] Class: External referral documented in this encounter [...] A.M.A. LIPID PANEL (12/28/2000 1:44 AM CDT) [facility] gist Method Time Signature Comments DNR [facility] [place] Triglycerides 139 40 - 199 MG/DL [facility] Cholesterol 170 120 - 199 [facility] MG/DL [place] Cholesterol 9 PERCENTILE [facility] Percentile [place] HDL Cholesterol 41.3 35ORHIGHER [facility] MG/DL [place] LDL Cholesterol 101 75 - 129 MG/DL [facility] Calculated [place] Comment: ?NATIONAL CHOLESTEROL EDUCATION PROGRAM (NCEP) ? [...] TO SECOND REPORT OF THE NCEP IN [facility] 1992;269:[id number] FOR GUIDELINES. Cholesterol/HDL Ratio 4.1 3.9 - 6.5 [facility] [place] Specimen (Source) Anatomical Location Collection Method / Collectio n Time Received Time / Laterality Volume 12/27/2000 Bailey Doran MD LABORATORY Performing Organization Address [facility] Phon e Number ADAM MARTINEZ HEMOGLOBIN A1C (12/28/2000 1:10 AM CDT) P athologist Signature Hemoglobin A1C 6.1 PERCENT ADAM MARTINEZ Specimen (Source) Anatomical Location Collection Method / Collectio n Time Received Time / Laterality Volume 12/27/2000 Narrative [facility] [place] - 12/28/2000 1:10 AM CDT REFERENCE RANGE: ??NON-DIABETIC ??<6.5% THE [place] RECOMM ENDS THAT THE GOAL OF THERAPY SHOULD BE A HEMOGLOBIN A 1C OF <7% AND THAT PHYSICIANS SHOULD REEVALUATE THE TR EATMENT REGIMEN IN PATIENTS WITH HEMOGLOBIN A1C VALUES CONSISTENTLY >8%. Bailey Doran MD LABORATORY Performing Organization Address [facility] Phon e Number ADAM MARTINEZ AST (12/27/2000 11:57 PM CDT) P athologist Signature AST 17 1 - 45 U/L ADAM MARTINEZ Specimen (Source) Anatomical Location Collection Method / Collectio n Time Received Time / Laterality Volume 12/27/2000 Bailey Doran MD LABORATORY Performing Organization Address [facility] Phon e Number ADAM MARTINEZ (ABNORMAL) GLUCOSE, FASTING (12/27/2000 8:13 AM CDT) P athologist Signature Glucose 122 (A) 60 - 115 [facility] mg/dL Specimen (Source) Anatomical Collection Method Collection Time Re ceived Time Location / / Volume Laterality 12/27/2000 8:13 AM CDT Bailey Doran MD LABORATORY Performing Organization Address [facility] Phon e Number [facility] documented in this encounter Visit Diagnoses Diagnosis Type II or unspecified type diabetes vijaya litus without mention of complication, not stated as uncontrolled - Primary Mixed hyperlipidemia documented in this encounter Care Teams Food And Nutrition Services Supervisor Relationship Specialty Start Date End Date Bailey Doran MD PCP - General 09/20/00 03/25/[address] [facility] 100 [place] [address] documented as of this encounter
--- OUTSIDE RECORDS SUMMARY | 2022-07-28 08:10 | XMS_ITS | Encounter Summary ---
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 range= 6-17 MMOL/L) *no component in computer Abstracted from paper copy. Provider Abstract LABORATORY Performing Organization Address City/State/ZIP Code Phon e Number [facility] (ABNORMAL) CLINICAL CHEMISTRY TEST (05/18/2000) [facility] gist Method Time Signature Alkaline 151 (A) 40 - 150 [facility] [place] Phosphatase U/L ALT 873 (A) 0 - 70 U/L [facility] [place] Amylase 2665 (A) 30 - 110 [facility] [place] U/L AST 781 (A) 0 - 55 U/L [facility] [place] Bilirubin Total 4.4 (A) 0.0 - 1.6 [facility] [place] MG/DL Calcium 9.1 8.5 - 10.4 [facility] [place] MG/DL Creatinine 9.1 [facility] [place] Glucose 220 (A) 60 - 115 [facility] [place] MG/DL Albumin 3.9 3.3 - 4.6 [facility] [place] G/DL Urea Nitrogen 15 7 - 30 [facility] [place] MG/DL Specimen (Source) Anatomical Location Collection Method / Collectio n Time Received Time / Laterality Volume 05/18/2000 Narrative [facility] [place] - 05/18/2000 Abstracted from paper copy. Provider Abstract LABORATORY Performing Organization Address City/[facility]/ZIP Code Phon e Number ADAM MARTINEZ URINALYSIS (05/18/2000) [facility] Signature Color Urine yellow [facility] Appearance Urine clear [facility] Glucose Urine 500 [facility] Bilirubin Urine neg [facility] Ketones Urine 15 [facility] Specific [place] 1.015 [facility] Blood Urine neg [facility] [...] Number [facility] (ABNORMAL) AUTO HEMOGRAM/PLATE/DIFF (05/18/2000) [facility] gist Method Time Signature WBC 14.5 (A) [...]
--- OUTSIDE RECORDS SUMMARY | 2022-07-28 08:10 | XMS_ITS | Encounter Summary ---
:1945 Author Organization [place] Address [address] [place] [address] Care Team Providers Name Role Phone Bailey Doran MD Primary Care Provider Encounter Details Date Type Department Care Team Description 11/09/2000 Orders Only [facility] Bailey Doran, ROUTIN E MEDICAL EXAM Physicians (Primary Dx) [address] , [address] [place] [id number] Social History Tobacco Use Types Packs/Day Years Used Date Smoking Tobacco: Former Cigarettes 0.5 16 Quit : 09/06/1978 Alcohol Use Standard Drinks/Week Comments Yes 10 (1 standard drink = 0.6 oz pure alcoh ol) Sex Assigned at Date Recorded Male 10/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 documented in this encounter Results OCCULT BLOOD, STOOL (3 SPECS) (11/09/2000 1:59 PM BILL SORTER) P athologist Signature Occult Blood neg [facility] Occult Blood neg [facility] Occult Blood neg [facility] Specimen (Source) Anatomical Collection Method Collection Time Re ceived Time Location / / Volume Laterality 11/09/2000 1:59 PM BILL SORTER Bailey Doran MD LABORATORY Performing Organization Address City/State/ZIP Code Phon e Number [facility] documented in this encounter Visit Diagnoses Diagnosis Routine general medical examination at a health care facility - Primary documented in this encounter Care Teams Mash Filter Press Operator Relationship Specialty Start Date End Date Bailey Doran MD PCP - General 09/20/00 03/25/09 [address] , [facility] [address] [place] [address] documented as of this encounter
--- OUTSIDE RECORDS SUMMARY | 2022-07-28 08:10 | XMS_ITS | Encounter Summary ---
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 range = 6-17 mmol/l) *no components in computer. Abstracted from paper copy. Provider Abstract LABORATORY Performing Organization Address [facility]/ZIP Code Phon e Number [place] (ABNORMAL) CLINICAL CHEMISTRY TEST (05/20/2000) Analysis Performed At Patho logist Time Signature Alkaline 113 40 - 150 [place] Phosphatase U/L ALT 383 (A) 0 - 70 U/L [place] Amylase 273 (A) 30 - 110 [place] U/L AST 86 (A) 0 - 55 U/L [place] Bilirubin Direct 0.7 (A) 0.0 - 0.5 [facility] [place] MG/DL Bilirubin Total 1.6 0.0 - 1.6 [place] [place] MG/DL Specimen (Source) Anatomical Location Collection Method / Collectio n Time Received Time / Laterality Volume 05/20/2000 Narrative [facility] - 05/20/2000 Abstracted from paper copy. Provider Abstract LABORATORY Performing Organization Address [facility] [facility] [place] (ABNORMAL) WBC (05/20/2000) P athologist Signature WBC [...]
--- OUTSIDE RECORDS SUMMARY | 2022-07-28 08:10 | XMS_ITS | Encounter Summary ---
:1945 Author Organization [place] Address [address] [place] [address] Care Team Providers Name Role Phone Bailey Doran MD Primary Care Provider Reason for Visit Reason Comments Results Encounter Details Date Type Department Care Team Description 11/02/2000 Office Visit [facility] Bailey Doran, MIXED HYPERLIPIDEMIA; Physicians DIABETES UNCOMPL ADULT-TYPE II [address] , [address] [id number] [phone] Social History Tobacco Use Types Packs/Day Years Used Date Smoking Tobacco: Former Cigarettes 0.5 16 Quit : 09/06/1978 Alcohol Use Standard Drinks/Week Comments Yes 10 (1 standard drink = 0.6 oz pure alcoh ol) Sex Assigned at Date Recorded Male 10/03/2020 10:26 AM 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 documented as of this encounter Last Filed Vital Signs Vital Sign Reading Time Taken Comments Blood Pressure 136/74 11/02/2000 5:30 PM 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 Pulse - - Temperature - - Respiratory Rate - - Oxygen Saturation - - Inhaled Oxygen Concentration - - Weight 84.8 kg (187 lb) 11/02/2000 5:30 PM 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 Height - - Body Mass Index 26.83 10/27/2000 9:00 AM 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 documented in this encounter Progress Notes 11/02/2000 5:30 PM 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 SUBJECTIVE: Reviewed lab work with glucose elevated [...] uncontrolled documented in this encounter Care Teams Rivet Spinner Relationship Specialty Start Date End Date Bailey Doran MD PCP - General 09/20/00 03/25/[address], [address] [place] [address] documented as of this encounter
[2022-07-28 14:22] LABS: Chloride* 97 mmol/L (96-114); Sodium* 133 mmol/L (135-149)
[2022-07-28 14:23] LABS: Potassium* 4.1 mmol/L (3.6-5.1)
[2022-07-28 14:25] LABS: Carbon Dioxide* 29 mmol/L (20-32); Creatinine* 1.5 mg/dL (0.5-1.5); Estimated Glomerular Filt Rate 48 ml/min
[2022-07-28 14:26] LABS: Blood Urea Nitrogen* 29 mg/dL (7-30); Calcium* 8.9 mg/dL (8.4-10.6); Glucose* 121 mg/dL (60-115)
[2022-08-01 14:58] LABS: Thyroid Stimulating Hormone* 0.611 uIU/mL (0.270-4.20)
== END 2022-07-28 17:15 | disposition home or self-care (01) ==
PROVIDERS: PCP Family Medicine; Visit Provider Family Medicine
DX: R94.6 Abnormal results of thyroid function studies (principal); E11.9 Type 2 diabetes mellitus without complications; I10 Essential (primary) hypertension; E78.5 Hyperlipidemia, unspecified
CPT/HCPCS: 80048; 84443

== ENCOUNTER 2022-08-10 09:22 | Outpatient (CLI) | payer OTHER, SELFPAY ==
--- OUTSIDE RECORDS SUMMARY | 2022-08-10 09:38 | XMS_ITS | Encounter Summary ---
:1945 Author Organization [place] Address [address] [place] [address] Care Team Providers Name Role Phone Andrey Tamez MD Primary Care Provider Andrey Tamez MD Unavailable Andrey Tamez MD Unavailable Reason for Visit Reason Onset Date Comments Patient Request 06/17/2017 Med Refill Encounter Details Date Type Department Care Team Description 06/17/2017 [facility] Andrey Tamez MD Patient Request ([facility] [place] [address] [facility] Refill ) [address] [place] [address] [place], [place] [phone] (Wo rk) [address] [phone] Social History Tobacco Use Types Packs/Day Years Used Date Smoking Tobacco: Former Cigarettes 0.5 16 Quit : 09/06/1978 Smokeless Tobacco: Never Alcohol Use Standard Drinks/Week Comments Yes 10 (1 standard drink = 0.6 oz pure alcoh ol) A drink every 1-2 weeks. 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
--- OUTSIDE RECORDS SUMMARY | 2022-08-10 09:38 | XMS_ITS | Encounter Summary ---
:1945 Author Organization [facility] Address [address] [place] [address] Care Team Providers Name Role Phone Andrey Tamez MD Primary Care Provider Encounter Details Date Type Department Care Team Description 10/24/2020 Immunization [facility] Rosa Hawthorne, Vaccination PA-C [facility] [address] [facility] [address] [place] [address] [place] [address] [phone] Social History Tobacco Use Types Packs/Day Years Used Date Smoking Tobacco: Former Cigarettes 0.5 16 Quit : 09/06/1978 Smokeless Tobacco: Never Alcohol Use Standard Drinks/Week Comments Yes 10 (1 standard drink = 0.6 oz pure alcoh ol) A drink every 1-2 weeks. 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
--- OUTSIDE RECORDS SUMMARY | 2022-08-10 09:38 | XMS_ITS | Encounter Summary ---
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 unspecified correction insulin use status (H) LIPID REFLEX TO Routine 06/18/2017 10:12 Hyperlipidemia LDL Re sults for this DIRECT LDL PANEL AM CDT goal <100 procedure a re in the results section. HEMOGLOBIN A1C Routine 06/18/2017 10:12 Type 2 diabetes Result s for this AM CDT mellitus with other procedur e are in circulatory the results complication, section. unspecified correction insulin use status (H) COMPREHENSIVE Routine 06/18/2017 10:12 Hyperlipidemia LDL Resu lts for this METABOLIC PANEL AM CDT goal <100 procedure ar e in the results section. documented in this encounter Results (ABNORMAL) Lipid panel reflex to direct LDL (06/18/2017 10:12 AM CDT) Analysis Performed At Patho logist Time Signature Cholesterol 165 <200 mg/dL 06/19/2017 [place] 12:[address] [facility] Triglycerides 176 (H) <150 mg/dL 06/19/2017 [place] 12:[address] [facility] Comment: Borderline high: ??150-199 mg/dl High: ? 200-499 mg/dl Very high: ? >499 mg/dl Fasting specimen HDL Cholesterol 45 >39 mg/dL 06/19/2017 12:16 PM [facility] CDT [facility] LDL Cholesterol 85 <100 mg/dL 06/19/2017 12:16 PM [facility] Calculated CDT [facility] Comment: Desirable: <100 mg/dl Non HDL Cholesterol 120 <130 mg/dL 06/19/2017 12:16 PM CDT [facility] Specimen Anatomical Collection Method Collection Time Receive d Time (Source) Location / / Volume Laterality Blood specimen 06/18/2017 10:12 7 (specimen) AM CDT 10:13 AM CDT Andrey Tamez MD LAB - BLOOD ORDERABLES Performing Organization Address City/State/ZIP Code Phon e Number [facility] [address] [place] [address] (ABNORMAL) Comprehensive metabolic panel (06/18/2017 10:12 AM CDT) [facility] Signature Sodium 137 133 - 144 06/19/2017 [place] mmol/L 12:[address] [facility] Potassium 4.2 3.4 - 5.3 06/19/2017 [place] mmol/L 12:[address] [facility] Chloride 103 94 - 109 06/19/2017 [place] mmol/L 12:[address] [facility] Carbon Dioxide 27 20 - 32 06/19/2017 [place] mmol/L 12:[address] [facility] Anion Gap 7 3 - 14 06/19/2017 [place] mmol/L 12:[address] [facility] Glucose 152 (H) 70 - 99 06/19/2017 [place] mg/dL 12:[address] [facility] Comment: Fasting specimen Urea Nitrogen 19 7 - 30 mg/dL 06/19/2017 12:16 PM [facility] Creatinine 1.19 0.66 - 1.25 mg/dL 06/19/2017 12:[address] [facility] GFR Estimate 60 (L) >60 mL/min/1.7m2 06/19/2017 12:16 PM [facility] Comment: Non GFR Calc GFR Estimate If 73 >60 mL/min/1.7m2 06/19/2017 12:16 PM [facility] Black [facility] Comment: GFR Calc Calcium 8.9 8.5 - 10.1 06/19/2017 12:16 PM [facility] mg/dL [facility] Bilirubin Total 0.5 0.2 - 1.3 06/19/2017 12:16 PM [facility] mg/dL [facility] Albumin 3.8 3.4 - 5.0 g/dL 06/19/2017 12:16 PM [facility] Protein Total 6.6 (L) 6.8 - 8.8 g/dL 06/19/2017 12:16 PM [facility] Alkaline Phosphatase 78 40 - 150 U/L 06/19/2017 12:16 PM [facility] ALT 28 0 - 70 U/L 06/19/2017 12:16 PM [facility] AST 13 0 - 45 U/L 06/19/2017 12:16 PM [facility] Specimen Anatomical Collection Method Collection Time Receive d Time (Source) Location / / Volume Laterality Blood specimen 06/18/2017 10:12 7 (specimen) AM CDT 10:13 AM CDT Andrey Tamez MD LAB - BLOOD ORDERABLES Performing Organization Address City/[facility]/ZIP Code Phon e Number [facility] [address], [place] [address] TSH with free T4 reflex (06/18/2017 10:12 AM CDT) P athologist Signature TSH 0.72 0.40 - 4.00 06/19/2017 [facility] mU/L 12:16 PM CDT [facility] Specimen Anatomical Collection Method Collection Time Receive d Time (Source) Location / / Volume Laterality Blood specimen 06/18/2017 10:12 7 (specimen) AM CDT 10:13 AM CDT Andrey Tamez MD LAB - BLOOD ORDERABLES Performing Organization Address City/[facility]/ZIP Code Phon e Number [facility] [address], [place] [address] (ABNORMAL) Hemoglobin A1c (06/18/2017 10:12 AM CDT) Analysis Performed At Patho logist Time Signature Hemoglobin A1C 7.4 (H) 4.3 - 6.0 06/18/2017 [facility] 1:04 PM CDT [facility] Specimen Anatomical Collection Method Collection Time Receive d Time (Source) Location / / Volume Laterality Blood specimen 06/18/2017 10:12 7 (specimen) AM CDT 10:13 AM CDT Andrey Tamez MD LAB - BLOOD ORDERABLES Performing Organization Address City/[facility]/ZIP Code Phon e Number [facility] [address] [facility] [place] [address] [address] documented in this encounter Visit Diagnoses Diagnosis 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
--- OUTSIDE RECORDS SUMMARY | 2022-08-10 09:38 | XMS_ITS | Encounter Summary ---
:1945 Author Organization [place] Address [address] [place] [address] Care Team Providers Name Role Phone Andrey Tamez MD Primary Care Provider Andrey Tamez MD Unavailable Andrey Tamez MD Unavailable Encounter Details Date Type Department Care Team Description 10/05/2016 Orders Only [facility] Ess ential hypertension with goal blood pressure less than 140/90 (Primary Dx); [facility] Type 2 diabetes mellitus wit h other circulatory complications (H); [address] Hyperlipidemia LDL goal <100 [place] [address] Social History Tobacco Use Types Packs/Day Years Used Date Smoking Tobacco: Former Cigarettes 0.5 16 Quit : 09/06/1978 Smokeless Tobacco: Never Alcohol Use Standard Drinks/Week Comments Yes 10 (1 standard drink = 0.6 oz pure alcoh ol) A drink every 1-2 weeks. 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 COMPREHENSIVE Routine 10/05/2016 9:00 Essential hypertension R esults for this METABOLIC PANEL AM DATACAP DEVELOPER with goal blood procedure are in pressure less than the resul ts 140/90 section. HEMOGLOBIN A1C Routine 10/05/2016 8:55 Type 2 diabetes Results for this AM DATACAP DEVELOPER mellitus with other procedur e are in circulatory the results complications (H) section. documented in this encounter Results (ABNORMAL) Lipid Profile (10/05/2016 9:00 AM DATACAP DEVELOPER) Analysis Performed At [facility] Signature Cholesterol 146 <200 mg/dL [facility] Triglycerides 186 (H) <150 mg/dL [facility] Comment: Borderline high: ??150-199 mg/dl High: ? 200-499 mg/dl Very high: ? >499 mg/dl Fasting specimen HDL Cholesterol 33 (L) >39 mg/dL [place] [facility] LDL Cholesterol Calculated 76 <100 mg/dL [facility] Comment: Desirable: <100 mg/dl Non HDL Cholesterol 113 <130 mg/dL [facility] Specimen Anatomical Collection Method Collection Time Receive d Time (Source) Location / / Volume Laterality Blood specimen 10/05/2016 9:00 AM 017 9:12 (specimen) DATACAP DEVELOPER AM DATACAP DEVELOPER Andrey Tamez MD LAB - BLOOD ORDERABLES Performing Organization Address City/State/ZIP Code Phon e Number [facility] [address] [place] [address] (ABNORMAL) Comprehensive metabolic panel (10/05/2016 9:00 AM DATACAP DEVELOPER) Analysis Performed At [facility] Signature Sodium 139 133 - 144 [place] mmol/L [facility] Potassium 4.9 3.4 - 5.3 [place] mmol/L [facility] Chloride 103 94 - 109 [place] mmol/L [facility] Carbon Dioxide 29 20 - 32 [place] mmol/L [facility] Anion Gap 7 3 - 14 [place] mmol/L [facility] Glucose 203 (H) 70 - 99 [place] mg/dL [facility] Comment: Fasting specimen Urea Nitrogen 18 7 - 30 mg/dL [place] [facility] Creatinine 1.14 0.66 - 1.25 mg/dL [place] [facility] GFR Estimate 63 >60 mL/min/1.7m2 [place] [facility] Comment: Non GFR Calc GFR Estimate If Black 77 >60 mL/min/1.7m2 [facility] Comment: GFR Calc Calcium 9.1 8.5 - 10.1 mg/dL [place] [facility] Bilirubin Total 0.5 0.2 - 1.3 mg/dL [facility] Albumin 3.7 3.4 - 5.0 g/dL [facility] S [facility] Protein Total 7.0 6.8 - 8.8 g/dL [place] [facility] Alkaline Phosphatase 92 40 - 150 U/L [facility] ALT 25 0 - 70 U/L [facility] AST 15 0 - 45 U/L [facility] Specimen Anatomical Collection Method Collection Time Receive d Time (Source) Location / / Volume Laterality Blood specimen 10/05/2016 9:00 AM 017 9:12 (specimen) DATACAP DEVELOPER AM DATACAP DEVELOPER Andrey Tamez MD LAB - BLOOD ORDERABLES Performing Organization Address City/State/ZIP Code Phon e Number [facility] [address] [place] [address] (ABNORMAL) Hemoglobin A1c (10/05/2016 8:55 AM DATACAP DEVELOPER) Analysis Performed At Patho logist Time Signature Hemoglobin A1C 7.7 (H) 4.3 - 6.0 [facility] Specimen Anatomical Collection Method Collection Time Receive d Time (Source) Location / / Volume Laterality Blood specimen 10/05/2016 8:55 AM 017 9:00 (specimen) DATACAP DEVELOPER AM DATACAP DEVELOPER Andrey Tamez MD LAB - BLOOD ORDERABLES Performing Organization Address City/State/ZIP Code Phon e Number [facility] [address] [place], [place] [address] [address] documented in this encounter Visit Diagnoses Diagnosis Essential hypertension with goal blood p ressure less than 140/90 - Primary 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
--- OUTSIDE RECORDS SUMMARY | 2022-08-10 09:38 | XMS_ITS | Encounter Summary ---
:1945 Author Organization [facility] Address [address] [place] [address] Care Team Providers Name Role Phone Andrey Tamez MD Primary Care Provider Encounter Details Date Type Department Care Team Description 10/03/2020 [facility] [address] [place] [address] Social History Tobacco Use Types Packs/Day Years Used Date Smoking Tobacco: Former Cigarettes 0.5 16 Quit : 09/06/1978 Smokeless Tobacco: Never Alcohol Use Standard Drinks/Week Comments Yes 10 (1 standard drink = 0.6 oz pure alcoh ol) A drink every 1-2 weeks. 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
--- OUTSIDE RECORDS SUMMARY | 2022-08-10 09:38 | XMS_ITS | Encounter Summary ---
:1945 Author Organization [facility] Address [address] [place] [address] Care Team Providers Name Role Phone Andrey Tamez MD Primary Care Provider Andrey Tamez MD Unavailable Andrey Tamez MD Unavailable Reason for Visit Reason Onset Date Comments Refill Request 10/05/2016 metformin Encounter Details Date Type Department Care Team Description 10/05/2016 Refill [facility] Andrey Tamez MD Refill Request [facility] [place] [address] [facility] (metformin) [address] [place] [address] [place], [place] [phone] (Wo rk) [address] [phone] Social History Tobacco Use Types Packs/Day Years Used Date Smoking Tobacco: Former Cigarettes 0.5 16 Quit : 09/06/1978 Smokeless Tobacco: Never Alcohol Use Standard Drinks/Week Comments Yes 10 (1 standard drink = 0.6 oz pure alcoh ol) A drink every 1-2 weeks. 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 Just had labs done today (currently pending) but is out of metformin. Metformin and Accu chek gonzales plus test strips Last Written Prescription Date: 02-07-16 Last Fill Quantity: 360, # refills: 1 Last Office Visit with G, [facility] or [facility] prescribing provider: 02-07-16 BP Readings from [...] due to: due for f/u diab OV. 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
--- OUTSIDE RECORDS SUMMARY | 2022-08-10 09:38 | XMS_ITS | Clinical Summary ---
:1945 Author Organization [facility] Address [address] [place] [address] Care Team Providers Name Role Phone Andrey [...] Coronary MOUTH TWICE DAILY artery disease involving creek coronary artery of creek heart, angina presence unspecified clopidogrel (PLAVIX) 75 MG TAKE ONE TABLET BY 90 tablet 1 04/06 Active tabletIndications: Coronary MOUTH ONE TIME DAILY artery disease involving creek coronary artery of creek heart, angina presence unspecified metoprolol tartrate TAKE ONE TABLET BY 180 tablet 1 04/22/2018 Active (LOPRESSOR) 100 MG MOUTH TWICE DAILY tabletIndications: Coronary artery disease involving creek coronary artery of creek heart, angina presence unspecified metFORMIN (GLUCOPHAGE) 500 [...] diabetic polyneuropathy 02/07/2016 Coronary artery disease involving creek coronary malcolm ry of creek heart, 10/18/2015 angina presence unspecified Overview: Replacing diagnoses that were inactivate d after the 06/06/2021 regulatory import. 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 Vital Signs Vital Sign Reading Time Taken Comments Blood Pressure 136/70 09/07/2017 8:13 AM AUTOMATIC CLIPPER AND STRIPPER Pulse 71 09/07/2017 8:13 AM AUTOMATIC CLIPPER AND STRIPPER Temperature 36.7 ??C (98.1 ??F) 09/07/2017 8:13 AM AUTOMATIC CLIPPER AND STRIPPER Respiratory Rate 12 02/07/2016 9:09 AM CDT Oxygen Saturation 100% 09/07/2017 8:13 AM AUTOMATIC CLIPPER AND STRIPPER Inhaled Oxygen Concentration - - Weight 80.7 kg (178 lb) 09/07/2017 8:13 AM AUTOMATIC CLIPPER AND STRIPPER Height 176 cm (5' 9.29) 09/07/2017 8:13 AM AUTOMATIC CLIPPER AND STRIPPER Body Mass Index 26.07 09/07/2017 8:13 AM AUTOMATIC CLIPPER AND STRIPPER Plan of Treatment Health Maintenance Due Date [...] Effective Phone Address T ype Group Dates [facility] [id number] 2018-Pres [phone] [address] HMO MEDICARE ADVANTAGE ent [address] [place] [address] HEALTH,PLUSH CUTTER Health Applications Specialist Other none (Home) Care of Yulissa [facility]??[place] ? [place] [address] Care Teams Engine Room Helper Relationship Specialty Start Date End Date Andrey Tamez MD PCP - General 03/26/09
--- OUTSIDE RECORDS SUMMARY | 2022-08-10 09:38 | XMS_ITS | Encounter Summary ---
:1945 Author Organization [facility] Address [address] [place] [address] Care Team Providers Name Role Phone Andrey Tamez MD Primary Care Provider Andrey Tamez MD Unavailable Andrey Tamez MD Unavailable Reason for Visit Reason Comments Medication Refill simvastatin (ZOCOR), ramipri l (ALTACE), metoprolol tartrate (LOPRESSOR), metFORMIN (GLUC OPHAGE) Encounter Details Date Type Department Care Team Description 04/21/2018 [facility] Andrey Tamez MD Medication Refill [facility] [place] [address] (simvastatin (ZOCOR), [address] ramipril (ALTACE), [address] [place] [address] metoprolol tartrate [place], [place] [phone] (Wo rk) (LOPRESSOR), metFORMIN [id number] (GLUCOPHAGE) ) [phone] Social History Tobacco Use Types Packs/Day Years Used Date Smoking Tobacco: Former Cigarettes 0.5 16 Quit : 09/06/1978 Smokeless Tobacco: Never Alcohol Use Standard Drinks/Week Comments Yes 10 (1 standard drink = 0.6 oz pure alcoh ol) A drink every 1-2 weeks. 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 Miscellaneous Notes [...] Andrey Tamez MD [facility] ([facility] [address] [place] [phone] Sig: TAKE ONE TABLET BY MOUTH AT [...] Andrey Tamez MD [facility] ([facility]) [address] [phone] Sig: TAKE ONE CAPSULE BY MOUTH TWICE [...] Andrey Tamez MD [facility] ([facility]) [address] [facility] [phone] Sig: TAKE ONE TABLET BY MOUTH ONE [...] Andrey Tamez MD [facility] ([facility]) [address] [facility] [phone] Sig: TAKE ONE TABLET BY MOUTH TWICE [...] Andrey Tamez MD [facility] ([facility]) [address] [address] Sig: TAKE ONE TABLET THREE TIMES A DAY WITH MEALS. Biguanide Agents Failed 04/21/2018 11:30 AM Failed - Blood pressure less than 140/90 in past 6 months BP Readings from Last 3 Encounters: 09/07/17 136/70 07/07/17 134/70 02/07/16 136/66 Failed - Patient has [...] and unspecified hyperlipidemia Coronary artery disease involving [place] coronary artery of [place] heart, angina presence unspecified 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, without long-term current use of insulin (H) documented in this encounter Care Teams Belt Glass Sander Relationship Specialty Start Date End Date Andrey Tamez MD PCP - General 03/26/09 Andrey Tamez MD PCP - Assigned PCP 09/11/12 11/08/18 [address] [facility] [address] [place] [address] Andrey Tamez MD Assigned PCP 09/11/12 09/07/20 [address] [facility] [address] [place] [address] documented as of this encounter
--- OUTSIDE RECORDS SUMMARY | 2022-08-10 09:38 | XMS_ITS | Encounter Summary ---
:1945 Author Organization [facility] Address [address] [place] [address] Care Team Providers Name Role Phone Andrey Tamez MD Primary Care Provider Andrey Tamez MD Unavailable Andrey Tamez MD Unavailable Reason for Visit Reason Comments Lipids Hypertension Diabetes Encounter Details Date Type Department Care Team Description 07/07/2017 Office Visit [facility] Andrey Tamez, Type 2 diabetes mellitus with other circulatory complication, without long-term current use of insulin (H) (Primary Dx); [facility] Coronary artery disease involving kaw coronary artery of kaw heart, angina presence unspecified; [address] Hyperlipidemi a LDL goal <100; [address] Essential hypertension with goal blood p ressure less than 140/90 [address] [place] [phone] Social History Tobacco Use Types Packs/Day Years Used Date Smoking Tobacco: Former Cigarettes 0.5 16 Quit : 09/06/1978 Smokeless Tobacco: Never Alcohol Use Standard Drinks/Week Comments Yes 10 (1 standard drink = 0.6 oz pure alcoh ol) A drink every 1-2 weeks. 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 The creation of this document is based on the provider's statements to the medical office secretary. Vicky Cantu July 07, 2017 11:17 AM [...] MG tablet (I25.10) Coronary artery disease involving kaw coronary artery of kaw heart, angina presence unspecified Comment: Stable. No [...] in this document, created by the medical office secretary for me, accurately reflects the services I personally performed and the decisions made by me. I have reviewed and approved this document for accuracy prior to leaving the patient care area. July 07, 2017 11:17 AM Andrey Tamez MD [facility] documented in this encounter Nursing Notes Dennis Faye Betsy - 07/07/2017 11:00 AM CDT [...] oz (79.1 kg). 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, without long-term current use of insulin (H) - Primary Coronary artery disease involving kaw coronary artery of kaw heart, angina presence unspecified Hyperlipidemia LDL goal <100 Other and unspecified hyperlipidemia Essential hypertension with goal blood p ressure less than 140/90 documented in this encounter Care Teams Balance Wheel Motion Inspector Relationship Specialty Start Date End Date Andrey Tamez MD PCP - General 03/26/09 Andrey Tamez MD PCP - Assigned PCP 09/11/12 11/08/[address] [place] [address] Andrey Tamez MD Assigned PCP 09/11/12 09/07/[address] [place] [address] documented as of this encounter
--- OUTSIDE RECORDS SUMMARY | 2022-08-10 09:38 | XMS_ITS | Encounter Summary ---
:1945 Author Organization [facility] Address [address] [place] [address] Care Team Providers Name Role Phone Andrey Tamez MD Primary Care Provider Andrey Tamez MD Unavailable Andrey Tamez MD Unavailable Reason for Visit Reason Comments Medication Refill ACCU-CHEK SMARTVIEW test str ip Encounter Details Date Type Department Care Team Description 10/10/2018 Refill [facility] Andrey Tamez MD Medication Refill [facility] [place] [address] (ACCU-CHEK SMARTVIEW [address] test strip) [address] [place] [address] [place], [place] [phone] (Wo rk) [address] [phone] Social History Tobacco Use Types Packs/Day Years Used Date Smoking Tobacco: Former Cigarettes 0.5 16 Quit : 09/06/1978 Smokeless Tobacco: Never Alcohol Use Standard Drinks/Week Comments Yes 10 (1 standard drink = 0.6 oz pure alcoh ol) A drink every 1-2 weeks. 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
--- OUTSIDE RECORDS SUMMARY | 2022-08-10 09:38 | XMS_ITS | Encounter Summary ---
:1945 Author Organization [facility] Address [address] [place] [address] Care Team Providers Name Role Phone Andrey Tamez MD Primary Care Provider Andrey Tamez MD Unavailable Andrey Tamez MD Unavailable Reason for Visit Reason Onset Date Comments Medication Request 04/27/2018 90 day supply Metfor min Encounter Details Date Type Department Care Team Description 04/27/2018 Telephone [facility] Andrey Tamez MD Medication Request ([facility] [place] [address] [facility] day supply Metformin) [address] [place] [address] [place], [place] [phone] (Wo rk) [address] [phone] Social History Tobacco Use Types Packs/Day Years Used Date Smoking Tobacco: Former Cigarettes 0.5 16 Quit : 09/06/1978 Smokeless Tobacco: Never Alcohol Use Standard Drinks/Week Comments Yes 10 (1 standard drink = 0.6 oz pure alcoh ol) A drink every 1-2 weeks. 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 Prescription was sent for 30 day supply on 04/22/18 as patient was due for appointment. Future appointment scheduled: Next 5 appointments (look out 90 days) Jul 06, 2018 8:20 AM CDT SHORT with Andrey Tamez MD [facility] [id number] Authorized 90 day supply per [facility] refill protocol. 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
--- OUTSIDE RECORDS SUMMARY | 2022-08-10 09:38 | XMS_ITS | Encounter Summary ---
:1945 Author Organization [place] Address [address] [place] [address] Care Team Providers Name Role Phone Andrey Tamez MD Primary Care Provider Andrey Tamez MD Unavailable Andrey Tamez MD Unavailable Reason for Visit Reason Comments Medicare Visit Encounter Details Date Type Department Care Team Description 09/07/2017 Office Visit [facility] Andrey Tamez Routin e general medical examination at a health care facility (Primary Dx); [facility] Coronary artery disease involving [place] coronary artery of [place] heart, angina presence unspecified; [address] Type 2 diabet es mellitus with other circulatory complication, without long-term current use of insulin (H); [address] Hyperlipidemia LDL goal <100; [address] [place], [place] Essential hypertension with goal blood pressure less than 140/90; [place] [address] Special screening for malignant neoplasm of prostate [id number] Social History Tobacco Use Types Packs/Day Years Used Date Smoking Tobacco: Former Cigarettes 0.5 16 Quit : 09/06/1978 Smokeless Tobacco: Never Alcohol Use Standard Drinks/Week Comments Yes 10 (1 standard drink = 0.6 oz pure alcoh ol) A drink every 1-2 weeks. 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 documented as of this encounter Last Filed Vital Signs Vital Sign Reading Time Taken Comments Blood Pressure 136/70 09/07/2017 8:13 AM HOSPICE DIRECTOR Pulse 71 09/07/2017 8:13 AM HOSPICE DIRECTOR Temperature 36.7 ??C (98.1 ??F) 09/07/2017 8:13 AM HOSPICE DIRECTOR Respiratory Rate - - Oxygen Saturation 100% 09/07/2017 8:13 AM HOSPICE DIRECTOR Inhaled Oxygen Concentration - - Weight 80.7 kg (178 lb) 09/07/2017 8:13 AM HOSPICE DIRECTOR Height 176 cm (5' 9.29) 09/07/2017 8:13 AM HOSPICE DIRECTOR Body Mass Index 26.07 09/07/2017 8:13 AM HOSPICE DIRECTOR documented in this encounter Patient Instructions Patient InstructionsFaye Collins - 09/07/2017 8:16 AM CST Preventive Health Recommendations: [...] you in a year, sooner if problems. ICE DIRECTOR documented in this encounter Progress Notes Andrey [...] COGNITIVE SCREEN 1) Repeat 3 items (Banana, [place], Chair) 2) Clock draw: NORMAL 3) 3 item recall: Recalls 3 objects Results: 3 items recalled: COGNITIVE IMPAIRMENT LESS LIKELY Mini-CogTM Copyright oKrina Ramos. Licensed by the author for use in [facility]; reprintedwith permission (damaso@[email or web address]). All rights reserved. Diabetes Patient reports [...] - Discussed PSA screening - Previously saw client director, Dr. Foreman. Has not follow up with [...] decisions personally performed and made by Andrey Taemz MD. It was created on his behalf by Ester Gabriel, a trained chief medical technologist. The creation of this document is based on the provider's statements to the chief medical technologist. Ester Gabriel September 07, 2017 8:53 AM [...] up yearly. (I25.10) Coronary artery disease involving [place] coronary artery of [place] heart, angina presence unspecified Comment: Stable. No [...] information in this document, created by the chief medical technologist for me, accurately reflects the services I personally performed and the decisions made by me. I have reviewed and approved this document for accuracy prior to leaving the patient care area. September 07, 2017 8:25 AM Andrey Tamez MD [facility] ICE DIRECTOR documented in this encounter Nursing Notes Dennis [...] lb (80.7 kg). Medication Reconciliation: complete Chivo BATTERY SERVICE TECHNICIAN ICE DIRECTOR documented in this encounter Plan of Treatment Not on filedocumented as of this encounter Procedures Procedure Name Priority Date/Time Associated Diagnosis Comme nts PROSTATE SPECIFIC Routine 09/07/2017 8:41 Special screening fo r Results for this ANTIGEN SCREEN AM HOSPICE DIRECTOR malignant neoplasm of proc edure are in prostate the results section. LIPID REFLEX TO Routine 09/07/2017 8:41 Hyperlipidemia LDL Res ults for this DIRECT LDL PANEL AM HOSPICE DIRECTOR goal <100 procedure a re in the results section. HEMOGLOBIN A1C Routine 09/07/2017 8:41 Type 2 diabetes Results for this AM HOSPICE DIRECTOR mellitus with other procedur e are in circulatory the results complication, without sectio n. long-term current use of insulin (H) COMPREHENSIVE Routine 09/07/2017 8:41 Hyperlipidemia LDL Resul ts for this METABOLIC PANEL AM HOSPICE DIRECTOR goal <100 procedure ar e in the results section. CBC WITH PLATELETS Routine 09/07/2017 8:41 Routine general Res ults for this AM HOSPICE DIRECTOR medical examination at [facility] rickie are in a health care facility the r esults section. documented in this encounter Results (ABNORMAL) Hemoglobin A1c (09/07/2017 8:41 AM HOSPICE DIRECTOR) Analysis Performed At [facility] Time [facility] Hemoglobin A1C 7.9 (H) 4.3 - 6.0 09/07/2017 [facility] % 11:02 AM HOSPICE DIRECTOR [facility] Specimen Anatomical Collection Method Collection Time Receive d Time (Source) Location / / Volume Laterality Blood specimen 09/07/2017 8:41 AM 018 8:46 (specimen) HOSPICE DIRECTOR AM HOSPICE DIRECTOR Andrey Tamez MD LAB - BLOOD ORDERABLES Performing Organization Address City/State/ZIP Code Phon e Number [facility] [address] [place], [place] [address] [address] (ABNORMAL) Lipid panel reflex to direct LDL Fasting (09/07/2017 8:41 AM HOSPICE DIRECTOR) Analysis Performed At Patho logist Time Signature Cholesterol 167 <200 mg/dL 09/07/2017 [place] 2:37 PM [facility] Triglycerides 299 (H) <150 mg/dL 09/07/2017 [place] 2:37 PM [facility] Comment: Borderline high: ??150-199 mg/dl High: ? 200-499 mg/dl Very high: ? >499 mg/dl Fasting specimen HDL Cholesterol 41 >39 mg/dL 09/07/2017 2:37 PM HOSPICE DIRECTOR [facility] LDL Cholesterol 66 <100 mg/dL 09/07/2017 2:37 PM HOSPICE DIRECTOR [facility] Comment: Desirable: <100 mg/dl Non HDL Cholesterol 126 <130 mg/dL 09/07/2017 2:37 PM HOSPICE DIRECTOR [facility] Specimen Anatomical Collection Method Collection Time Receive d Time (Source) Location / / Volume Laterality Blood specimen 09/07/2017 8:41 AM 018 8:46 (specimen) HOSPICE DIRECTOR AM HOSPICE DIRECTOR Andrey Tamez MD LAB - BLOOD ORDERABLES Performing Organization Address City/State/ZIP Code Phon e Number [facility] [address] [place] [address] (ABNORMAL) Comprehensive metabolic panel (09/07/2017 8:41 AM HOSPICE DIRECTOR) Analysis Performed At [facility] Signature Sodium 140 133 - 144 09/07/2017 [place] mmol/L 2:37 PM [facility] Potassium 4.7 3.4 - 5.3 09/07/2017 [place] mmol/L 2:37 PM [facility] Chloride 103 94 - 109 09/07/2017 [place] mmol/L 2:37 PM [facility] Carbon Dioxide 30 20 - 32 09/07/2017 [place] mmol/L 2:37 PM [facility] Anion Gap 7 3 - 14 09/07/2017 [place] mmol/L 2:37 PM [facility] Glucose 176 (H) 70 - 99 09/07/2017 [place] mg/dL 2:37 PM [facility] Comment: Fasting specimen Urea Nitrogen 19 7 - 30 mg/dL 09/07/2017 2:37 PM [facility] Creatinine 1.12 0.66 - 1.25 mg/dL 09/07/2017 2:37 PM CS T [facility] GFR Estimate 64 >60 mL/min/1.7m2 09/07/2017 2:[address] [facility] Comment: Non GFR Calc GFR Estimate If 78 >60 mL/min/1.7m2 09/07/2017 2:37 P [facility] Black [facility] Comment: GFR Calc Calcium 9.1 8.5 - 10.1 09/07/2017 2:37 PM [facility] mg/dL [facility] Bilirubin Total 0.6 0.2 - 1.3 09/07/2017 2:37 PM [facility] mg/dL [facility] Albumin 3.9 3.4 - 5.0 g/dL 09/07/2017 2:37 PM [facility] Protein Total 6.7 (L) 6.8 - 8.8 g/dL 09/07/2017 2:37 PM [facility] [place] Alkaline Phosphatase 77 40 - 150 U/L 09/07/2017 2:37 PM [facility] ALT 26 0 - 70 U/L 09/07/2017 2:37 PM [place] [facility] AST 19 0 - 45 U/L 09/07/2017 2:37 PM [facility] Specimen Anatomical Collection Method Collection Time Receive d Time (Source) Location / / Volume Laterality Blood specimen 09/07/2017 8:41 AM 018 8:46 (specimen) HOSPICE DIRECTOR AM HOSPICE DIRECTOR Andrey Tamez MD LAB - BLOOD ORDERABLES Performing Organization Address City/State/ZIP Code Phon e Number [facility] [address] [place] [address] Prostate spec antigen screen (09/07/2017 8:41 AM HOSPICE DIRECTOR) athologist Signature PSA 2.44 0 - 4 ug/L 09/07/2017 [place] 2:25 PM [facility] Comment: Assay Method: Chemiluminescence using Siemens [place] analyzer Specimen Anatomical Collection Method Collection Time Receive d Time (Source) Location / / Volume Laterality Blood specimen 09/07/2017 8:41 AM 018 8:46 (specimen) HOSPICE DIRECTOR AM HOSPICE DIRECTOR Andrey Tamez MD LAB - BLOOD ORDERABLES Performing Organization Address City/State/ZIP Code Phon e Number [facility] [address] [place] [address] [facility] [address] [place] [address], U [phone] CBC with platelets (09/07/2017 8:41 AM HOSPICE DIRECTOR) athologist Signature WBC 8.0 4.0 - 11.0 09/07/2017 [place] 10e9/L 10:57 AM [facility] RBC Count 4.67 4.4 - 5.9 09/07/2017 [facility] 10e12/L 10:57 AM [facility] Hemoglobin 15.2 13.3 - 09/07/2017 [facility] 17.7 g/dL 10:57 AM [facility] Hematocrit 46.5 40.0 - 09/07/2017 [facility] 53.0 % 10:57 AM [facility] MCV 100 78 - 100 09/07/2017 [facility] fl 10:57 AM [facility] MCH 32.5 26.5 - 09/07/2017 [facility] 33.0 pg 10:57 AM [facility] MCHC 32.7 31.5 - 09/07/2017 [facility] 36.5 g/dL 10:57 AM [facility] RDW 12.3 10.0 - 09/07/2017 [facility] 15.0 % 10:57 AM [facility] Platelet Count 197 150 - 450 09/07/2017 [facility] 10e9/L 10:57 AM [facility] Specimen Anatomical Collection Method Collection Time Receive d Time (Source) Location / / Volume Laterality Blood specimen 09/07/2017 8:41 AM 018 8:46 (specimen) HOSPICE DIRECTOR AM HOSPICE DIRECTOR Andrey Tamez MD LAB - BLOOD ORDERABLES Performing Organization Address City/State/ZIP Code Phon e Number [facility] [address], [place] [address] [address] documented in this encounter Visit Diagnoses Diagnosis Routine general medical examination at a health care facility - Primary Coronary artery disease involving [place] coronary artery of [place] heart, angina presence unspecified 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, without long-term current use of insulin (H) Hyperlipidemia LDL goal <100 Other and unspecified hyperlipidemia Essential hypertension with goal blood p ressure less than 140/90 Special screening for malignant neoplasm of prostate documented in this encounter Care Teams Substation Operator Helper Generation Relationship Specialty Start Date End Date Andrey Tamez MD PCP - General 03/26/09 Andrey Tamez MD PCP - Assigned PCP 09/11/12 11/08/18 [address] [place] [address] Andrey Tamez MD Assigned PCP 09/11/12 09/07/20 [address] [place] [address] documented as of this encounter
--- OUTSIDE RECORDS SUMMARY | 2022-08-10 09:38 | XMS_ITS | Encounter Summary ---
:1945 Author Organization [place] Address [address] [place] [address] Care Team Providers Name Role Phone Andrey Tamez MD Primary Care Provider Andrey Tamez MD Unavailable Andrey Tamez MD Unavailable Encounter Details Date Type Department Care Team Description 04/28/2018 Orders Only [facility] Typ e 2 diabetes mellitus with other circulatory complication, without long-term current use of insulin (H); [facility] Hyperlipidemia LDL goal <[address] [place] [address] Social History Tobacco Use Types Packs/Day Years Used Date Smoking Tobacco: Former Cigarettes 0.5 16 Quit : 09/06/1978 Smokeless Tobacco: Never Alcohol Use Standard Drinks/Week Comments Yes 10 (1 standard drink = 0.6 oz pure alcoh ol) A drink every 1-2 weeks. 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 documented as of this encounter Plan of [...] P athologist Signature Creatinine 83 mg/dL 04/28/2018 [place] Urine 3:50 PM CDT [facility] Albumin Urine 13 mg/L 04/28/2018 [place] mg/L 3:50 PM CDT [facility] Albumin Urine 15.64 0 - 17 04/28/2018 [place] mg/g Cr mg/g Cr 3:50 PM CDT [facility] Specimen Anatomical Collection Method Collection Time Receive d Time (Source) Location / / Volume Laterality Urine specimen 04/28/2018 8:15 AM 018 8:20 (specimen) CDT AM CDT Andrey Tamez MD LAB - URINE ORDERABLES Performing Organization Address City/State/ZIP Code Phon e Number [facility] [address] [place] [address] (ABNORMAL) Lipid panel reflex to direct LDL Fasting (04/28/2018 8:14 AM CDT) Analysis Performed At Patho logist Time Signature Cholesterol 133 <200 mg/dL 04/28/2018 [place] 2:06 PM T [facility] Triglycerides 191 (H) <150 mg/dL 04/28/2018 [place] 2:06 PM T [facility] Comment: Borderline high: ??150-199 mg/dl High: ? 200-499 mg/dl Very high: ? >499 mg/dl Fasting specimen HDL Cholesterol 36 (L) >39 mg/dL 04/28/2018 2:06 PM [facility] LDL Cholesterol 59 <100 mg/dL 04/28/2018 2:06 PM [facility] Calculated CDT [facility] Comment: Desirable: <100 mg/dl Non HDL Cholesterol 97 <130 mg/dL 04/28/2018 2:06 PM CDT [facility] Specimen Anatomical Collection Method Collection Time Receive d Time (Source) Location / / Volume Laterality Blood specimen 04/28/2018 8:14 AM 018 8:19 (specimen) CDT AM CDT Andrey Tamez MD LAB - BLOOD ORDERABLES Performing Organization Address City/State/ZIP Code Phon e Number [facility] [address] [place] [address] (ABNORMAL) Comprehensive metabolic panel (04/28/2018 8:14 AM CDT) Analysis Performed At Patho logist Time Signature Sodium 139 133 - 144 04/28/2018 [place] mmol/L 2:06 PM CDT [facility] Potassium 4.5 3.4 - 5.3 04/28/2018 [place] mmol/L 2:06 PM CDT [facility] Chloride 103 94 - 109 04/28/2018 [place] mmol/L 2:06 PM CDT [facility] Carbon Dioxide 27 20 - 32 04/28/2018 [place] mmol/L 2:06 PM CDT [facility] Anion Gap 9 3 - 14 04/28/2018 [place] mmol/L 2:06 PM CDT [facility] Glucose 140 (H) 70 - 99 04/28/2018 [place] mg/dL 2:06 PM CDT [facility] Comment: Fasting specimen Urea Nitrogen 17 7 - 30 mg/dL 04/28/2018 2:06 PM CDT [facility] Creatinine 1.18 0.66 - 1.25 mg/dL 04/28/2018 2:06 PM CD T [facility] GFR Estimate 61 >60 mL/min/1.7m2 04/28/2018 2:06 PM C DT [facility] Comment: Non GFR Calc GFR Estimate If 73 >60 mL/min/1.7m2 04/28/2018 2:06 P M [facility] Black CDT [facility] Comment: GFR Calc Calcium 9.0 8.5 - 10.1 04/28/2018 2:06 PM [place] [facility] mg/dL T [facility] Bilirubin Total 0.5 0.2 - 1.3 04/28/2018 2:06 PM [facility] IEW [facility] mg/dL CDT [facility] Albumin 3.7 3.4 - 5.0 g/dL 04/28/2018 2:06 PM [facility] CDT [facility] Protein Total 6.7 (L) 6.8 - 8.8 g/dL 04/28/2018 2:06 PM [facility] Alkaline Phosphatase 72 40 - 150 U/L 04/28/2018 2:06 PM [facility] ALT 21 0 - 70 U/L 04/28/2018 2:06 PM [facility] AST 16 0 - 45 U/L 04/28/2018 2:06 PM [facility] T [facility] Specimen Anatomical Collection Method Collection Time Receive d Time (Source) Location / / Volume Laterality Blood specimen 04/28/2018 8:14 AM 018 8:19 (specimen) CDT AM CDT Andrey Tamez MD LAB - BLOOD ORDERABLES Performing Organization Address City/State/ZIP Code Phon e Number [facility] [address] [place] [address] (ABNORMAL) Hemoglobin A1c (04/28/2018 8:14 AM CDT) Analysis Performed At Patho logist Time Signature Hemoglobin A1C 7.3 (H) 0 - 5.6 % 04/28/2018 [place] 8:54 AM CDT [facility] Comment: Normal <5.7% Prediabetes 5.7-6.4% ??Diab etes 6.5% or higher - adopted from ADA consensus guidelines. 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
--- OUTSIDE RECORDS SUMMARY | 2022-08-10 09:39 | XMS_ITS | Encounter Summary ---
:1945 Author Organization [place] Address [address] [place] [address] Care Team Providers Name Role Phone Andrey Tamez MD Primary Care Provider Andrey Tamez MD Unavailable Andrey Tamez MD Unavailable Reason for Visit Reason Comments Health Coaching - Research Face #6 Encounter Details Date Type Department Care Team Description 11/29/2013 Allied Health/Nurse Health [facility] Coaching - Visit [facility] (Face #6) [address] [place] [phone] Social History Tobacco Use Types Packs/Day Years Used Date Smoking Tobacco: Former Cigarettes 0.5 16 Quit : 09/06/1978 Smokeless Tobacco: Never Alcohol Use Standard Drinks/Week Comments Yes 10 (1 standard drink = 0.6 oz pure alcoh ol) A drink every 1-2 weeks. 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 [address] [phone] Health Coaching Progress Note Patient Name: Rodolfo [...] a need for medication. 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 Patient has been encouraged to continue to use [employer] website as it is available to them fora short time, as well as sent an Study Exit Letter and asked to complete the surveys on the website/email when prompted to do so. Leslee Godoy Health Line Out Worker 11/29/2013 3:41 PM documented in this encounter Plan of Treatment Not on filedocumented as of this encounter Visit Diagnoses Diagnosis Type 2 diabetes, HbA1C goal < 8% (H) - P rimary Type II or unspecified type diabetes vijaya litus without mention of complication, not stated as uncontrolled documented in this encounter Care Teams Bumper Straightener Relationship Specialty Start Date End Date Andrey Tamez MD PCP - General 03/26/09 Andrey Tamez MD PCP - Assigned PCP 09/11/12 11/08/18 [address] [place] [address] Andrey Tamez MD Assigned PCP 09/11/12 09/07/20 [address] [place] [address] documented as of this encounter
--- OUTSIDE RECORDS SUMMARY | 2022-08-10 09:39 | XMS_ITS | Encounter Summary ---
:1945 Author Organization [place] Address [address] [place] [address] Care Team Providers Name Role Phone Andrey Tamez MD Primary Care Provider Andrey Tamez MD Unavailable Andrey Tamez MD Unavailable Reason for Visit Reason Onset Date Comments Orders 01/10/2014 labs Encounter Details Date Type Department Care Team Description 01/10/2014 Telephone [facility] Andrey Tamez MD Orders (labs) [place] [address] [facility] [address] [place] [address] [address] [place] [address] [phone] Social History Tobacco Use Types Packs/Day Years Used Date Smoking Tobacco: Former Cigarettes 0.5 16 Quit : 09/06/1978 Smokeless Tobacco: Never Alcohol Use Standard Drinks/Week Comments Yes 10 (1 standard drink = 0.6 oz pure alcoh ol) A drink every 1-2 weeks. 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 I'll place orders for routine diabetes labs. Telephone Encounter - Steph Walsh RN - 01/10/2014 1:26 PM CDT Pt calls, states he made appt through [facility] for labs tomorrow and received a message [...] Coronary atherosclerosis of unspecified type of vessel, [place] or graft documented in this encounter Care Teams Yield Improvement Engineer Relationship Specialty Start Date End Date Andrey Tamez MD PCP - General 03/26/09 Andrey Tamez MD PCP - Assigned PCP 09/11/12 11/08/18 [address] [place] [address] Andrey Tamez MD Assigned PCP 09/11/12 09/07/20 [address] [place] [address] documented as of this encounter
--- OUTSIDE RECORDS SUMMARY | 2022-08-10 09:39 | XMS_ITS | Encounter Summary ---
:1945 Author Organization [place] Address [address] [place] [address] Care Team Providers Name Role Phone Andrey Tamez MD Primary Care Provider Andrey Tamez MD Unavailable Andrey Tamez MD Unavailable Encounter Details Date Type Department Care Team Description 01/11/2014 Orders Only [facility] Typ e 2 diabetes, HbA1C [facility] goal < 8% (H) [address] [place] [address] Social History Tobacco Use Types Packs/Day Years Used Date Smoking Tobacco: Former Cigarettes 0.5 16 Quit : 09/06/1978 Smokeless Tobacco: Never Alcohol Use Standard Drinks/Week Comments Yes 10 (1 standard drink = 0.6 oz pure alcoh ol) A drink every 1-2 weeks. 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 Plan of [...] CDT) P athologist Signature Creatinine 100 mg/dL [facility] Urine [facility] Albumin Urine 6 mg/L [facility] mg/L [facility] Albumin Urine 6.00 0 - 17 [facility] mg/g Cr mg/g Cr [facility] Specimen Anatomical Collection Method Collection Time Receive d Time (Source) Location / / Volume Laterality Urine specimen 01/11/2014 8:18 AM 014 8:23 (specimen) CDT AM CDT Andrey Tamez MD LAB - URINE ORDERABLES Performing Organization Address City/State/ZIP Code Phon e Number [facility] [address] [place], [place] [phone] [place] [address] LABS (ABNORMAL) Lipid panel reflex to direct LDL (01/11/2014 8:17 AM CDT) P athologist Signature Cholesterol 172 <200 mg/dL [facility] [place] Comment: LDL Cholesterol is the primary guide to therapy. The NCEP recommends further evaluation of: patients with cholesterol greater than 200 mg/dL if additional risk facto rs are present, cholesterol greater than 240 mg/dL, triglycerides greater than 1 50 mg/dL, or HDL less than 40 mg/dL. Triglycerides 182 (H) 0 - 150 mg/dL [facility] HDL Cholesterol 33 (L) >40 mg/dL [facility] [place] LDL Cholesterol Calculated 102 0 - 129 mg/dL [facility] [place] Comment: LDL Cholesterol is the primary guide to therapy: LDL-cholesterol goal in high risk patients is <100 mg/dL and in very high risk patients is <70 mg/dL. VLDL-Cholesterol 36 (H) 0 - 30 mg/dL [facility] Cholesterol/HDL Ratio 5.1 (H) 0.0 - 5.0 [facility] [place] Specimen Anatomical Collection Method Collection Time Receive d Time (Source) Location / / Volume Laterality Blood specimen 01/11/2014 8:17 AM 014 8:22 (specimen) CDT AM CDT Andrey Tamez MD LAB - BLOOD ORDERABLES Performing Organization Address City/[facility]/ZIP Code Phon e Number [facility] [address] [place] [address] (ABNORMAL) Hemoglobin A1c (01/11/2014 8:17 AM CDT) [...] LAB - BLOOD ORDERABLES Performing Organization Address City/[facility]/ZIP Code Phon e Number [facility] [address] [address] [address] (ABNORMAL) Comprehensive metabolic panel (01/11/2014 8:17 AM CDT) P athologist Signature Sodium 137 133 - 144 [place] mmol/L [facility] Potassium 4.4 3.4 - 5.3 [place] mmol/L [facility] [place] Chloride 101 94 - 109 [place] mmol/L [facility] Carbon Dioxide 26 20 - 32 [place] mmol/L [facility] Anion Gap 10 6 - 17 [place] mmol/L [facility] Glucose 158 (H) 60 - 99 [place] mg/dL [facility] Comment: Fasting specimen Urea Nitrogen 22 7 - 30 mg/dL [facility] Creatinine 0.90 0.66 - 1.25 mg/dL [facility] GFR Estimate 84 >60 mL/min/1.7m2 [facility] GFR Estimate If Black >90 >60 mL/min/1.7m2 [facility] Calcium 9.0 8.5 - 10.4 mg/dL [facility] Bilirubin Total 0.5 0.2 - 1.3 mg/dL [facility] Albumin 3.8 3.3 - 4.9 g/dL [facility] [place] Comment: Reference range changed on 05/08. Protein Total 6.3 (L) 6.8 - 8.8 g/dL [facility] Comment: As of 08, reference range reflects plasma specimen type. Alkaline Phosphatase 83 40 - 150 U/L [facility] [place] ALT 28 0 - 70 U/L [facility] EA [place]MEN AST 20 0 - 45 U/L [facility] Specimen Anatomical Collection Method Collection Time Receive d Time (Source) Location / / Volume Laterality Blood specimen 01/11/2014 8:17 AM 014 8:22 (specimen) CDT AM CDT Andrey Tamez MD LAB - BLOOD ORDERABLES Performing Organization Address City/[facility]/ZIP Code Phon e Number [facility] [address] [place] [address] TSH with free T4 reflex (01/11/2014 8:17 AM CDT) P athologist Signature TSH 0.98 0.4 - 5.0 [facility] mU/L [place] Specimen Anatomical Collection Method Collection Time Receive d Time (Source) Location / / Volume Laterality Blood specimen 01/11/2014 8:17 AM 014 8:22 (specimen) CDT AM CDT Andrey Tamez MD LAB - BLOOD ORDERABLES Performing Organization Address City/[facility]/ZIP [facility] Phon e Number [facility] [address] [place] [address] [facility] [address] [place], [place] [address] documented in this encounter Visit Diagnoses Diagnosis Type 2 diabetes, HbA1C goal < 8% (H) Type II or unspecified type diabetes vijaya litus without mention of complication, not stated as uncontrolled documented in this encounter Care Teams Seat Trimmer Relationship Specialty Start Date End Date Andrey Tamez MD PCP - General 03/26/09 Andrey Tamez MD PCP - Assigned PCP 09/11/12 11/08/18 [address] [id number] Andrey Tamez MD Assigned PCP 09/11/12 09/07/20 [address] [id number] documented as of this encounter
--- OUTSIDE RECORDS SUMMARY | 2022-08-10 09:39 | XMS_ITS | Encounter Summary ---
:1945 Author Organization [place] Address [address] [place] [address] Care Team Providers Name Role Phone Andrey Tamez MD Primary Care Provider Andrey Tamez MD Unavailable Andrey Tamez MD Unavailable Reason for Visit Reason Onset Date Comments Refill Request 10/15/2015 multiple meds Encounter Details Date Type Department Care Team Description 10/15/2015 Refill [facility] Andrey Tamez MD Refill Request [facility] [place] [address] [facility] (multiple meds) [address] [place] [address] [facility] [address] [place] [address] [place], [place] [phone] (Wo rk) [address] [phone] Social History Tobacco Use Types Packs/Day Years Used Date Smoking Tobacco: Former Cigarettes 0.5 16 Quit : 09/06/1978 Smokeless Tobacco: Never Alcohol Use Standard Drinks/Week Comments Yes 10 (1 standard drink = 0.6 oz pure alcoh ol) A drink every 1-2 weeks. 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 I don't see anything scheduled. Chai Baker, RN AND SEAT COVER FITTER Telephone Encounter - Andrey Tamez MD - 10/18/2015 11:56 AM CST Needs to schedule fasting lab only appointment and office visit a few days later. Please advise pt. AND SEAT COVER FITTER Telephone Encounter - Dayna Molina RN - 10/16/2015 4:23 PM CST Routing refill request to provider for review/approval because: Labs out of range: AND SEAT COVER FITTER Telephone Encounter - Aditi Yeager - 10/15/2015 11:09 AM CST Metformin 500 Last Written Prescription Date: 02/07/15 Last Fill Quantity: 270, # refills: 1 Last Office Visit with [facility] primary care provider: 02/07/15 MICROL 7 01/24/2015 [...] # refills: 1 Last Office Visit with [facility] primary care provider: 02/07/15 Future Office Visit: BP Readings from Last 3 Encounters: 02/07/15 124/70 01/31/14 138/74 10/19/12 122/82 Simvastatin 40 Last Written Prescription Date: 02/07/15 Last Fill Quantity: 90, # refills: 1 Last Office Visit with [facility] primary care provider: 02/07/15 CHOL 140 10/01/2015 [...] # refills: 1 Last Office Visit with [facility] primary care provider: 02/07/15 Future Office Visit: [...] # refills: 1 Last Office Visit with [facility] primary care provider: 02/07/15 POTASSIUM Date Value Ref Range Status 10/01/2015 4.1 3.4 - 5.3 mmol/L Final CREATININE Date Value Ref Range Status 10/01/2015 0.99 0.66 - 1.25 mg/dL Final BP Readings from Last 3 Encounters: 02/07/15 124/70 01/31/14 138/74 10/19/12 122/82 AND SEAT COVER FITTER documented in this encounter Plan of Treatment Not on filedocumented as of this encounter Visit Diagnoses Diagnosis Type 2 diabetes, HbA1C goal < 8% (H) - P rimary Type II or unspecified type diabetes vijaya litus without mention of complication, not stated as uncontrolled Hyperlipidemia LDL goal <100 Other and unspecified hyperlipidemia Coronary artery disease involving tanana coronary artery of tanana heart, angina presence unspecified Essential hypertension Unspecified essential hypertension documented in this encounter Care Teams Sports Management Intern Relationship Specialty Start Date End Date Andrey Tamez MD PCP - General 03/26/09 Andrey Tamez MD PCP - Assigned PCP 09/11/12 11/08/18 [address] [place] [address] Andrey Tamez MD Assigned PCP 09/11/12 09/07/20 [address] [place] [address] documented as of this encounter
--- OUTSIDE RECORDS SUMMARY | 2022-08-10 09:39 | XMS_ITS | Encounter Summary ---
:1945 Author Organization [place] Address [address] [place] [address] Care Team Providers Name Role Phone Andrey Tamez MD Primary Care Provider Andrey Tamez MD Unavailable Andrey Tamez MD Unavailable Reason for Visit Reason Comments Diabetes MEL 10/19/2012: Labs complet ed Recheck Medication Encounter Details Date Type Department Care Team Description 01/31/2014 Office Visit [facility] Andrey Tamez, Type 2 diabetes, HbA1C goal < 8% (H) (Primary Dx); [facility] Hyperlipidemia LDL goal <100; [address] Unspecified e ssential hypertension; [address] CAD (coronary artery disease) [address] [place], [place] [phone] Social History Tobacco Use Types Packs/Day Years Used Date Smoking Tobacco: Former Cigarettes 0.5 16 Quit : 09/06/1978 Smokeless Tobacco: Never Alcohol Use Standard Drinks/Week Comments Yes 10 (1 standard drink = 0.6 oz pure alcoh ol) A drink every 1-2 weeks. 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 Andrey Tamez MD, [facility] documented in this encounter Nursing Notes Mick [...] Coronary atherosclerosis of unspecified type of vessel, [place] or graft documented in this encounter Care Teams Kiln Burner Relationship Specialty Start Date End Date Andrey Tamez MD PCP - General 03/26/09 Andrey Tamez MD PCP - Assigned PCP 09/11/12 11/08/18 [address] [employer] [address] [phone] Andrey Tamez MD Assigned PCP 09/11/12 09/07/20 [address] [place] [address] documented as of this encounter
--- OUTSIDE RECORDS SUMMARY | 2022-08-10 09:39 | XMS_ITS | Encounter Summary ---
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 HEMOGLOBIN A1C Routine 10/01/2015 8:19 Type 2 diabetes Results for this AM SEPARATOR INSERTER mellitus with other procedur e are in circulatory the results complications (H) section. COMPREHENSIVE Routine 10/01/2015 8:19 Type 2 diabetes, Results for this METABOLIC PANEL AM SEPARATOR INSERTER HbA1C goal < 8% (H) proce myrae are in the results section. documented in this encounter Results (ABNORMAL) Lipid panel reflex to direct LDL (10/01/2015 8:19 AM SEPARATOR INSERTER) Analysis Performed At [facility] logist Time Signature Cholesterol 140 <200 mg/dL [facility] Triglycerides 215 (H) <150 mg/dL [facility] Comment: Borderline high: ??150-199 mg/dl High: ? 200-499 mg/dl Very high: ? >499 mg/dl HDL Cholesterol 41 >39 mg/dL [facility] LDL Cholesterol Calculated 56 <100 mg/dL [facility] Comment: Desirable: <100 mg/dl Non HDL Cholesterol 99 <130 mg/dL [facility] Specimen Anatomical Collection Method Collection Time Receive d Time (Source) Location / / Volume Laterality Blood specimen 10/01/2015 8:19 AM 016 8:24 (specimen) SEPARATOR INSERTER AM SEPARATOR INSERTER Andrey Tamez MD LAB - BLOOD ORDERABLES Performing Organization Address City/State/ZIP Code Phon e Number [facility] [address] [place] [address] (ABNORMAL) Comprehensive metabolic panel (10/01/2015 8:19 AM SEPARATOR INSERTER) [facility] gist [facility] [place] Time Signature Sodium 140 133 - 144 [place] mmol/L [facility] Potassium 4.1 3.4 - 5.3 [place] mmol/L [facility] Chloride 105 94 - 109 [place] mmol/L [facility] Carbon Dioxide 26 20 - 32 [facility] mmol/L [facility] Anion Gap 9 3 - 14 [place] mmol/L [facility] Glucose 144 (H) 70 - 99 [facility] mg/dL [facility] Urea Nitrogen 18 7 - 30 [place] mg/dL [facility] Creatinine 0.99 0.66 - [facility] 1.25 mg/dL [facility] GFR Estimate 75 >60 [place] mL/min/1.7 [facility] m2 [facility] Comment: Non GFR Calc GFR Estimate If Black >90 >60 mL/min/1.7m2 [facility] GFR Calc [facility] Calcium 8.2 (L) 8.5 - 10.1 mg/dL [facility] Bilirubin Total 0.4 0.2 - 1.3 mg/dL [facility] Albumin 3.6 3.4 - 5.0 g/dL [facility] Protein Total 6.2 (L) 6.8 - 8.8 g/dL [facility] Alkaline Phosphatase 82 40 - 150 U/L [facility] EW [facility] ALT 25 0 - 70 U/L [facility] AST 13 0 - 45 U/L [facility] Specimen Anatomical Collection Method Collection Time Receive d Time (Source) Location / / Volume Laterality Blood specimen 10/01/2015 8:19 AM 016 8:24 (specimen) SEPARATOR INSERTER AM SEPARATOR INSERTER Andrey Tamez MD LAB - BLOOD ORDERABLES Performing Organization Address City/State/ZIP Code Phon e Number [facility] [address] [place] [address] (ABNORMAL) Hemoglobin A1c (10/01/2015 8:19 AM SEPARATOR INSERTER) Analysis Performed At Patho logist Time Signature Hemoglobin A1C 7.0 (H) 4.3 - 6.0 [facility] Comment: Reviewed: OK with previous Specimen Anatomical Collection Method Collection Time Receive d Time (Source) Location / / Volume Laterality Blood specimen 10/01/2015 8:19 AM 016 8:24 (specimen) SEPARATOR INSERTER AM SEPARATOR INSERTER Andrey Tamez MD LAB - BLOOD ORDERABLES Performing Organization Address City/State/ZIP Code Phon e Number [facility] [address] [place], [place] [address] [address] documented in this encounter Visit Diagnoses Diagnosis 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
--- OUTSIDE RECORDS SUMMARY | 2022-08-10 09:39 | XMS_ITS | Encounter Summary ---
:1945 Author Organization [facility] Address [address] [place] [address] Care Team Providers Name Role Phone Andrey Tamez MD Primary Care Provider Andrey Tamez MD Unavailable Andrey Tamez MD Unavailable Encounter Details Date Type Department Care Team Description 01/24/2015 Orders Only [facility] Cor onary artery disease due to lipid rich plaque; [facility] Unspecified essential hypert ension; [address] Type 2 diabetes, HbA1C goal < 8% (H); [place], [place] Hyperlipidemi a LDL goal <100 [phone] Social History Tobacco Use Types Packs/Day Years Used Date Smoking Tobacco: Former Cigarettes 0.5 16 Quit : 09/06/1978 Smokeless Tobacco: Never Alcohol Use Standard Drinks/Week Comments Yes 10 (1 standard drink = 0.6 oz pure alcoh ol) A drink every 1-2 weeks. 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 Plan [...] CDT) P athologist Signature Creatinine 75 mg/dL [place] Urine [facility] Albumin Urine 7 mg/L [place] mg/L [facility] Albumin Urine 9.50 0 - 17 [place] mg/g Cr mg/g Cr [facility] Specimen Anatomical Collection Method Collection Time Receive d Time (Source) Location / / Volume Laterality Urine specimen 01/24/2015 8:28 AM 015 8:33 (specimen) CDT AM CDT Andrey Tamez MD LAB - URINE ORDERABLES Performing Organization Address City/State/ZIP Code Phon e Number [facility] [address] [address] [phone] [facility] [address] [place] [address], [facility] [phone] (ABNORMAL) Hemoglobin A1c (01/24/2015 8:27 AM CDT) Analysis Performed At Patho logist Time Signature Hemoglobin A1C 7.3 (H) 4.3 - 6.0 [facility] Comment: Reviewed: OK with previous Specimen Anatomical Collection Method Collection Time Receive d Time (Source) Location / / Volume Laterality Blood specimen 01/24/2015 8:27 AM 015 8:32 (specimen) CDT AM CDT Andrey Tamez MD LAB - BLOOD ORDERABLES Performing Organization Address City/State/ZIP Code Phon e Number [facility] [address] [place], [place] [address] [address] (ABNORMAL) Lipid Profile with reflex to direct LDL (01/24/2015 8:27 AM CDT) P athologist Signature Cholesterol 135 <200 mg/dL [facility] Comment: LDL Cholesterol is the primary guide to therapy. The NCEP recommends further evaluation of: patients with cholesterol greater than 200 mg/dL if additional risk facto rs are present, cholesterol greater than 240 mg/dL, triglycerides greater than 1 50 mg/dL, or HDL less than 40 mg/dL. Triglycerides 216 (H) 0 - 150 mg/dL [facility] CLI NICS [facility] HDL Cholesterol 35 (L) >40 mg/dL [facility] CLINI CS [facility] LDL Cholesterol Calculated 57 0 - 129 mg/dL [facility] Comment: LDL Cholesterol is the primary guide to therapy: LDL-cholesterol goal in high risk patients is <100 mg/dL and in very high risk patients is <70 mg/dL. VLDL-Cholesterol 43 (H) 0 - 30 mg/dL [place] C LINICS [facility] Cholesterol/HDL Ratio 3.9 0.0 - 5.0 [facility] Specimen Anatomical Collection Method Collection Time Receive d Time (Source) Location / / Volume Laterality Blood specimen 01/24/2015 8:27 AM 015 8:32 (specimen) CDT AM CDT Andrey Tamez MD LAB - BLOOD ORDERABLES Performing Organization Address City/State/ZIP Code Phon e Number [facility] [address] [place] [address] (ABNORMAL) Comprehensive metabolic panel (BMP + Alb, Alk Phos, ALT, AST, Total. Bili, TP) (01/24/2015 8:27 AM CDT) Patholo gist Method Time Signature Sodium 138 133 - 144 [place] mmol/L [facility] Potassium 4.2 3.4 - 5.3 [place] mmol/L [facility] Chloride 105 94 - 109 [place] mmol/L [facility] Carbon Dioxide 27 20 - 32 [place] mmol/L [facility] Anion Gap 6 3 - 14 [place] mmol/L [facility] Glucose 159 (H) 70 - 99 [place] mg/dL [facility] Urea Nitrogen 19 7 - 30 [place] mg/dL [facility] Creatinine 0.98 0.66 - [facility] 1.25 mg/dL [facility] GFR Estimate 75 >60 [place] mL/min/1.7 CLINICS m2 [facility] Comment: Non GFR Calc GFR Estimate If Black >90 >60 mL/min/1.7m2 F [facility] GFR Calc [facility] Calcium 8.8 8.5 - 10.1 mg/dL [facility] ICS [facility] Bilirubin Total 0.4 0.2 - 1.3 mg/dL [facility] Albumin 3.7 3.4 - 5.0 g/dL [facility] S [facility] Protein Total 6.2 (L) 6.8 - 8.8 g/dL [facility] INICS [facility] Alkaline Phosphatase 96 40 - 150 U/L [facility] EW [facility] ALT 26 0 - 70 U/L [facility] AST 12 0 - 45 U/L [facility] Specimen Anatomical Collection Method Collection Time Receive d Time (Source) Location / / Volume Laterality Blood specimen 01/24/2015 8:27 AM 015 8:32 (specimen) CDT AM CDT Andrey Tamez MD LAB - BLOOD ORDERABLES Performing Organization Address City/State/ZIP Code Phon e Number [facility] [address] [place] [address] (ABNORMAL) CBC with platelets (01/24/2015 8:27 AM CDT) athologist Signature WBC 6.8 4.0 - 11.0 [facility] 10e9/L [facility] RBC Count 4.26 (L) 4.4 - 5.9 [facility] 10e12/L [facility] Comment: Reviewed: OK with previous Hemoglobin 14.2 13.3 - 17.7 g/dL [facility] CLI [facility] Hematocrit 42.7 40.0 - 53.0 % [facility] MCV 100 78 - [address] [facility] MCH 33.3 (H) 26.5 - 33.0 pg [facility] Comment: Reviewed: OK with previous MCHC 33.3 31.5 - 36.5 g/dL [facility] ICS [facility] 11.9 10.0 - 15.0 % [facility] Platelet Count 185 150 - 450 10e9/L [facility] Specimen Anatomical Collection Method Collection Time Receive d Time (Source) Location / / Volume Laterality Blood specimen 01/24/2015 8:27 AM 015 8:32 (specimen) CDT AM CDT Andrey Tamez MD LAB - BLOOD ORDERABLES Performing Organization Address City/State/ZIP Code Phon e Number [facility] [address] [place], [place] [address] [address] documented in this encounter Visit Diagnoses Diagnosis Coronary artery disease due to lipid serene h plaque Unspecified essential hypertension Type 2 diabetes, HbA1C goal < 8% (H) Type II or unspecified type diabetes vijaya litus without mention of complication, not stated as uncontrolled Hyperlipidemia LDL goal <100 Other and unspecified hyperlipidemia documented in this encounter Care Teams Machine Zipper Trimmer Relationship Specialty Start Date End Date Andrey Tamez MD PCP - General 03/26/09 Andrey Tamez MD PCP - Assigned PCP 09/11/12 11/08/[address] [place] [address] Andrey Tamez MD Assigned PCP 09/11/12 09/07/[address] [place] [address] documented as of this encounter
--- OUTSIDE RECORDS SUMMARY | 2022-08-10 09:39 | XMS_ITS | Encounter Summary ---
:1945 Author Organization [place] Address [address] [place] [address] Care Team Providers Name Role Phone Andrey [...] DM testing supplies(he gets his Rx's at [facility], but he has to go to [facility] for his test strips). Encounter Details Date Type Department Care Team Description 02/07/[address] [facility] Andrey Tamez, Type 2 diabetes, HbA1C goal < 8% (H) (Primary Dx); Clinic [facility] Unspecified essential hypertension; [address] Coronary malcolm ry disease due to lipid rich plaque; [address] Hyperlipidemia LDL goal <100; [address] CHRISSY HERRERA Advanced directives, claims counsel ing/[place] [phone] Social History Tobacco Use Types Packs/Day Years Used Date Smoking Tobacco: Former Cigarettes 0.5 16 Quit : 09/06/1978 Smokeless Tobacco: Never Alcohol Use Standard Drinks/Week Comments Yes 10 (1 standard drink = 0.6 oz pure alcoh ol) A drink every 1-2 weeks. 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 Andrey Tamez MD, [facility] documented in this encounter Nursing Notes Katherin [...] DM testing supplies(he gets his Rx's at [facility], but he has to go to [facility] for his test strips). Initial BP 140/74 [...] counseling documented in this encounter Care Teams Carton Catcher Relationship Specialty Start Date End Date Andrey Tamez MD PCP - General 03/26/09 Andrey Tamez MD PCP - Assigned PCP 09/11/12 11/08/18 [address] [place] [address] Andrey Tamez MD Assigned PCP 09/11/12 09/07/20 [address] [place] [phone] documented as of this encounter
--- OUTSIDE RECORDS SUMMARY | 2022-08-10 09:39 | XMS_ITS | Encounter Summary ---
:1945 Author Organization [place] Address [address] [place] [address] Care Team Providers Name Role Phone Andrey Tamez MD Primary Care Provider Andrey Tamez MD Unavailable Andrey Tamez MD Unavailable Reason for Visit Reason Onset Date Comments Refill Request 01/24/2014 multiple meds Encounter Details Date Type Department Care Team Description 01/24/2014 Refill [facility] Andrey Tamez MD Refill Request Clinic [place] [address] [facility] (multiple meds) [address] [place] [address] [place] [address] [place], [place] [phone] (Wo rk) [phone] Social History Tobacco Use Types Packs/Day Years Used Date Smoking Tobacco: Former Cigarettes 0.5 16 Quit : 09/06/1978 Smokeless Tobacco: Never Alcohol Use Standard Drinks/Week Comments Yes 10 (1 standard drink = 0.6 oz pure alcoh ol) A drink every 1-2 weeks. 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
--- OUTSIDE RECORDS SUMMARY | 2022-08-10 09:39 | XMS_ITS | Encounter Summary ---
:1945 Author Organization [place] Address [address] [place] [address] Care Team Providers Name Role Phone Andrey Tamez MD Primary Care Provider Andrey Tamez MD Unavailable Andrey Tamez MD Unavailable Reason for Visit Reason Comments Flu Shot Encounter Details Date Type Department Care Team Description 07/08/2013 Allied Health/Nurse [facility] Nicho Alonso Flu Shot Visit Bryant Marvin MD [address] [place] [address] Social History Tobacco Use Types Packs/Day Years Used Date Smoking Tobacco: Former Cigarettes 0.5 16 Quit : 09/06/1978 Smokeless Tobacco: Never Alcohol Use Standard Drinks/Week Comments Yes 10 (1 standard drink = 0.6 oz pure alcoh ol) A drink every 1-2 weeks. 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 No Form completed by Rodolfo Quevedo Form reviewed by Belkis AlexPh. [facility] [phone] documented in this encounter Plan of Treatment Not on filedocumented as of this encounter Visit Diagnoses Diagnosis Need for prophylactic vaccination and in oculation against influenza - Primary documented in this encounter Care Teams Brazing Furnace Feeder Relationship Specialty Start Date End Date Andrey Tamez MD PCP - General 03/26/09 Andrey Tamez MD PCP - Assigned PCP 09/11/12 11/08/18 [address] [place] [address] Andrey Tamez MD Assigned PCP 09/11/12 09/07/20 [address] [place] [address] documented as of this encounter
--- OUTSIDE RECORDS SUMMARY | 2022-08-10 09:39 | XMS_ITS | Encounter Summary ---
:1945 Author Organization [facility] Address [address] [place] [address] Care Team Providers Name Role Phone Andrey Tamez MD Primary Care Provider Andrey Tamez MD Unavailable Andrey Tamez MD Unavailable Encounter Details Date Type Department Care Team Description 06/29/2013 Orders Only [facility] Typ e 2 diabetes, HbA1C [facility] goal < 8% (H) [address] [place] [address] Social History Tobacco Use Types Packs/Day Years Used Date Smoking Tobacco: Former Cigarettes 0.5 16 Quit : 09/06/1978 Smokeless Tobacco: Never Alcohol Use Standard Drinks/Week Comments Yes 10 (1 standard drink = 0.6 oz pure alcoh ol) A drink every 1-2 weeks. 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 The NCEP recommends further evaluation of: patients with cholesterol greater than 200 mg/dL if additional risk facto rs are present, cholesterol greater than 240 mg/dL, triglycerides greater than 1 50 mg/dL, or HDL less than 40 mg/dL. Triglycerides 156 (H) 0 - 150 mg/dL [place] CLI NICS [place] HDL Cholesterol 38 (L) 40 - 110 mg/dL [facility] LDL Cholesterol Calculated 78 0 - 129 mg/dL [facility] Comment: LDL Cholesterol is the primary guide to therapy: LDL-cholesterol goal in high risk patients is <100 mg/dL and in very high risk patients is <70 mg/dL. VLDL-Cholesterol 31 (H) 0 - 30 mg/dL [facility] Cholesterol/HDL Ratio 3.8 0.0 - 5.0 [facility] Specimen Anatomical Collection Method Collection Time Receive d Time (Source) Location / / Volume Laterality Blood specimen 06/29/2013 9:07 AM 013 9:12 (specimen) CDT AM CDT Andrey Tamez MD LAB - BLOOD ORDERABLES Performing Organization Address City/[facility]/ZIP Code Phon e Number [address] [address] (ABNORMAL) Hemoglobin A1c (06/29/2013 9:07 AM CDT) Analysis Performed At Patho logist Time Signature Hemoglobin A1C 7.1 (H) 4.3 - 6.0 [facility] Specimen Anatomical Collection Method Collection Time Receive d Time (Source) Location / / Volume Laterality Blood specimen 06/29/2013 9:07 AM 013 9:12 (specimen) CDT AM CDT Andrey Tamez MD LAB - BLOOD ORDERABLES Performing Organization Address City/[facility] Phon e Number [facility] [address] [place], [place] [address] [address] (ABNORMAL) Comprehensive metabolic panel (06/29/2013 9:07 AM CDT) P athologist Signature Sodium 134 133 - 144 [place] mmol/L [facility] Potassium 4.5 3.4 - 5.3 [place] mmol/L [facility] Chloride 100 94 - 109 [place] mmol/L [facility] Carbon Dioxide 25 20 - 32 [place] mmol/L [facility] Anion Gap 10 6 - 17 [place] mmol/L [facility] Glucose 152 (H) 60 - 99 [place] mg/dL [facility] Comment: Fasting specimen Urea Nitrogen 25 7 - 30 mg/dL [facility] Creatinine 1.13 0.66 - 1.25 mg/dL [facility] GFR Estimate 65 >60 mL/min/1.7m2 [place] C LINICS [place] GFR Estimate If Black 78 >60 mL/min/1.7m2 [facility] Calcium 9.1 8.5 - 10.4 mg/dL [facility] Bilirubin Total 0.5 0.2 - 1.3 mg/dL [facility] Albumin 3.9 3.3 - 4.9 g/dL [facility] Comment: Reference range changed on 05/08. Protein Total 6.6 (L) 6.8 - 8.8 g/dL [facility] Comment: As of 08, reference range reflects plasma specimen type. Alkaline Phosphatase 80 40 - 150 U/L [facility] ALT 37 0 - 70 U/L [facility] AST 21 0 - 45 U/L [facility] EA [facility] Specimen Anatomical Collection Method Collection Time Receive d Time (Source) Location / / Volume Laterality Blood specimen 06/29/2013 9:07 AM 013 9:12 (specimen) CDT AM CDT Andrey Tamez MD LAB - BLOOD ORDERABLES Performing Organization Address City/State/ZIP Code Phon e Number [facility] [address] OnlineClear View [place] [address] documented in this encounter Visit Diagnoses Diagnosis Type 2 diabetes, HbA1C goal < 8% (H) Type II or unspecified type diabetes vijaya litus without mention of complication, not stated as uncontrolled documented in this encounter Care Teams Third Rail Installer Relationship Specialty Start Date End Date Andrey Tamez MD PCP - General 03/26/09 Andrey Tamez MD PCP - Assigned PCP 09/11/12 11/08/18 [address] [place], [place] [phone] Andrey Tamez MD Assigned PCP 09/11/12 09/07/20 [address] [place], [place] [phone] documented as of this encounter
--- OUTSIDE RECORDS SUMMARY | 2022-08-10 09:39 | XMS_ITS | Encounter Summary ---
:1945 Author Organization [place] Address [address] [place] [address] Care Team Providers Name Role Phone Andrey Tamez MD Primary Care Provider Andrey Tamez MD Unavailable Andrey Tamez MD Unavailable Encounter Details Date Type Department Care Team Description 05/01/2014 Orders Only [facility] Typ e 2 diabetes, HbA1C [facility] goal < 8% (H) [address] [place] [address] Social History Tobacco Use Types Packs/Day Years Used Date Smoking Tobacco: Former Cigarettes 0.5 16 Quit : 09/06/1978 Smokeless Tobacco: Never Alcohol Use Standard Drinks/Week Comments Yes 10 (1 standard drink = 0.6 oz pure alcoh ol) A drink every 1-2 weeks. 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 The NCEP recommends further evaluation of: patients with cholesterol greater than 200 mg/dL if additional risk facto rs are present, cholesterol greater than 240 mg/dL, triglycerides greater than 1 50 mg/dL, or HDL less than 40 mg/dL. Triglycerides 188 (H) 0 - 150 mg/dL [place] [facility] [place] HDL Cholesterol 45 >40 mg/dL [place] [facility] [place] LDL Cholesterol Calculated 87 0 - 129 mg/dL [facility] Comment: LDL Cholesterol is the primary guide to therapy: LDL-cholesterol goal in high risk patients is <100 mg/dL and in very high risk patients is <70 mg/dL. VLDL-Cholesterol 38 (H) 0 - 30 mg/dL [place] Billie [facility] [place] Cholesterol/HDL Ratio 3.8 0.0 - 5.0 [facility] Specimen Anatomical Collection Method Collection Time Receive d Time (Source) Location / / Volume Laterality Blood specimen 05/01/2014 8:53 AM 014 8:55 (specimen) CDT AM CDT Andrey Tamez MD LAB - BLOOD ORDERABLES Performing Organization Address City/State/ZIP Code Phon e Number [facility] [address] [place] [address] [facility] [address] [place], [place] [address] (ABNORMAL) Hemoglobin A1c (05/01/2014 8:53 AM CDT) Analysis Performed At Patho logist Time Signature Hemoglobin A1C 6.5 (H) 4.3 - 6.0 [facility] Specimen Anatomical Collection Method Collection Time Receive d Time (Source) Location / / Volume Laterality Blood specimen 05/01/2014 8:53 AM 014 8:55 (specimen) CDT AM CDT Andrey Tamez MD LAB - BLOOD ORDERABLES Performing Organization Address City/State/ZIP Code Phon e Number [facility] [address] [place], [place] [address] [address] (ABNORMAL) Comprehensive metabolic panel (05/01/2014 8:53 AM CDT) Analysis Performed At Patho logist Time Signature Sodium 139 133 - 144 [place] mmol/L [facility] Potassium 4.9 3.4 - 5.3 [place] mmol/L [facility] Chloride 103 94 - 109 [place] mmol/L [facility] Carbon Dioxide 27 20 - 32 [place] mmol/L [facility] Anion Gap 9 6 - 17 [place] mmol/L [facility] Glucose 145 (H) 70 - 99 [place] mg/dL [facility] Comment: Effective 04/04/2014, the reference range for this assay has changed to reflect new instrumentation/methodology. Urea Nitrogen 19 7 - 30 mg/dL [place] [facility] [place] Comment: Effective 04/04/2014, the reference range for this assay has changed to reflect new instrumentation/methodology. Creatinine 1.03 0.66 - 1.25 mg/dL [facility] GFR Estimate 72 >60 mL/min/1.7m2 [facility] Comment: Non GFR Calc GFR Estimate If Black 87 >60 mL/min/1.7m2 F [facility] Comment: GFR Calc Calcium 9.4 8.5 - 10.1 mg/dL [place] [facility] [place] Comment: Effective 04/04/2014, the reference range for this assay has changed to reflect new instrumentation/methodology. Bilirubin Total 0.6 0.2 - 1.3 mg/dL [facility] Albumin 4.0 3.3 - 4.9 g/dL [facility] Protein Total 6.6 (L) 6.8 - 8.8 g/dL [facility] Alkaline Phosphatase 82 40 - 150 U/L [facility] ALT 21 0 - 70 U/L [facility] AST 12 0 - 45 U/L [facility] Specimen Anatomical Collection Method Collection Time Receive d Time (Source) Location / / Volume Laterality Blood specimen 05/01/2014 8:53 AM 014 8:55 (specimen) CDT AM CDT Andrey Tamez MD LAB - BLOOD ORDERABLES Performing Organization Address City/State/ZIP Code Phon e Number [facility] [address] [place] [address] [facility] [address] [place], [place] [address] documented in this encounter Visit Diagnoses Diagnosis Type 2 diabetes, HbA1C goal < 8% (H) Type II or unspecified type diabetes vijaya litus without mention of complication, not stated as uncontrolled documented in this encounter Care Teams Job Coach Relationship Specialty Start Date End Date Andrey Tamez MD PCP - General 03/26/09 Andrey Tamez MD PCP - Assigned PCP 09/11/12 11/08/18 [address] [place], [place] [address] Andrey Tamez MD Assigned PCP 09/11/12 09/07/20 [address] [place] [address] documented as of this encounter
--- OUTSIDE RECORDS SUMMARY | 2022-08-10 09:39 | XMS_ITS | Encounter Summary ---
:1945 Author Organization [place] Address [address] [place] [address] Care Team Providers Name Role Phone Andrey Tamez MD Primary Care Provider Andrey Tamez MD Unavailable Andrey Tamez MD Unavailable Reason for Visit Reason Comments Health Coaching - Research Face #5 Encounter Details Date Type Department Care Team Description 11/08/2013 Allied Health/Nurse Health [facility] Coaching - Visit [facility] (Face #5) [address] [place] [phone] Social History Tobacco Use Types Packs/Day Years Used Date Smoking Tobacco: Former Cigarettes 0.5 16 Quit : 09/06/1978 Smokeless Tobacco: Never Alcohol Use Standard Drinks/Week Comments Yes 10 (1 standard drink = 0.6 oz pure alcoh ol) A drink every 1-2 weeks. 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 encounter Patient Instructions Patient InstructionsLeslee Godoy - 11/08/2013 11:04 AM CST November 08, 2013 [facility] [address] [facility] [address] [phone] Health Coaching Progress Note Patient Name: Rodolfo Quevedo Date: November 08, 2013 Plan: (Homework, other): Patient was encouraged to continue using [employer] to seek condition-related information and education, as well as schedule a follow up appointment with the Health Welfare Worker in 3 weeks Patient has set self-identified [...] 4-5x a week 5) [facility] and do a lesson 1x a day = 7 lessons a week Leslee Godoy Health Welfare Worker 11/08/2013 11:42 AM Y CAR OPERATOR documented in this encounter Progress Notes Leslee Godoy - 11/08/2013 12:03 PM CST November 08, [address] [address] Health Coaching Progress Note Patient Name: Rodolfo [...] December to reduce/eliminate medications. Intervention: Motivational Interviewing PR Intervention: Expressed Empathy/Understanding, Supported Autonomy, Collaboration, Evocation, [...] other): Patient was encouraged to continue using [employer] to seek condition-related information and education, as well as schedule a follow up appointment with the Health Welfare Worker in 3 weeks Patient has set self-identified [...] 7 lessons a week Leslee Godoy Health Welfare Worker 11/08/2013 12:07 PM Y CAR OPERATOR documented in this encounter Plan of Treatment Not on filedocumented as of this encounter Visit Diagnoses Diagnosis Type 2 diabetes, HbA1C goal < 8% (H) - P rimary Type II or unspecified type diabetes vijaya litus without mention of complication, not stated as uncontrolled documented in this encounter Care Teams Cardiothoracic Anesthesia Technician Relationship Specialty Start Date End Date Andrey Tamez MD PCP - General 03/26/09 Andrey Tamez MD PCP - Assigned PCP 09/11/12 11/08/18 [address] [place], [place] [phone] Andrey Tamez MD Assigned PCP 09/11/12 09/07/20 [address] [place], [place] [phone] documented as of this encounter
--- OUTSIDE RECORDS SUMMARY | 2022-08-10 09:39 | XMS_ITS | Encounter Summary ---
:1945 Author Organization [place] Address [address] [place] [address] Care Team Providers Name Role Phone Andrey Tamez MD Primary Care Provider Andrey Tamez MD Unavailable Andrey Tamez MD Unavailable Encounter Details Date Type Department Care Team Description 05/24/[address] [facility] Andrey Tamez MD Salivary duct calculi [facility] [place] [address] (Primary Dx) [address] [place] [address] [place], [place] [phone] (Wo rk) [address] [phone] Social History Tobacco Use Types Packs/Day Years Used Date Smoking Tobacco: Former Cigarettes 0.5 16 Quit : 09/06/1978 Smokeless Tobacco: Never Alcohol Use Standard Drinks/Week Comments Yes 10 (1 standard drink = 0.6 oz pure alcoh ol) A drink every 1-2 weeks. 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 [place]. Called to Pharmacy. GAURAV Mg documented in this encounter Plan of Treatment Not on filedocumented as of this encounter Visit Diagnoses Diagnosis Salivary duct calculi - Primary Sialolithiasis documented in this encounter Care Teams Light Bulb Assembler Relationship Specialty Start Date End Date Andrey Tamez MD PCP - General 03/26/09 Andrey Tamez MD PCP - Assigned PCP 09/11/12 11/08/18 [address] [place] [address] Andrey Tamez MD Assigned PCP 09/11/12 09/07/20 [address] [place] [address] documented as of this encounter
--- OUTSIDE RECORDS SUMMARY | 2022-08-10 09:39 | XMS_ITS | Encounter Summary ---
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 Andrey Tamez MD, [facility] documented in this encounter Nursing [...] BP completed using cuff size: large JBuffie HEAVY FORGER documented in this encounter Plan of Treatment [...] athologist Signature TSH 0.66 0.40 - 4.00 [facility] mU/L [facility] Specimen Anatomical Collection Method Collection Time Receive d Time (Source) Location / / Volume Laterality Blood specimen 02/07/2016 10:41 6 (specimen) AM CDT 10:46 AM CDT Andrey Tamez MD LAB - BLOOD ORDERABLES Performing Organization Address City/State/ZIP Code Phon e [facility] [address] [place] [address] Microalbumin quantitative, random urine (02/07/2016 10:41 AM CDT) athologist Signature Creatinine 138 mg/dL [place] Urine [facility] Albumin Urine 23 mg/L [place] mg/L [facility] Albumin Urine 16.45 0 - 17 [place] mg/g Cr mg/g Cr [facility] Specimen Anatomical Collection Method Collection Time Receive d Time (Source) Location / / Volume Laterality Urine specimen 02/07/2016 10:41 6 (specimen) AM CDT 10:46 AM CDT Andrey Tamez MD LAB - URINE ORDERABLES Performing Organization Address City/[facility]/ZIP Code Phon e Number [facility] [address] [phone] [facility] [address] [address], U [phone] (ABNORMAL) Lipid panel reflex to direct LDL (02/07/2016 10:41 AM CDT) Analysis Performed At [facility] logist Time Signature Cholesterol 150 <200 mg/dL [facility] Triglycerides 252 (H) <150 mg/dL [facility] Comment: Borderline high: ??150-199 mg/dl High: ? 200-499 mg/dl Very high: ? >499 mg/dl Fasting specimen HDL Cholesterol 39 (L) >39 mg/dL [place] CLINI CS [facility] LDL Cholesterol Calculated 61 <100 mg/dL [facility] Comment: Desirable: <100 mg/dl Non HDL Cholesterol 111 <130 mg/dL [facility] Specimen Anatomical Collection Method Collection Time Receive d Time (Source) Location / / Volume Laterality Blood specimen 02/07/2016 10:41 6 (specimen) AM CDT 10:46 AM CDT Andrey Tamez MD LAB - BLOOD ORDERABLES Performing Organization Address City/State/ZIP Code Phon e Number [facility] [address] [place] [address] (ABNORMAL) Comprehensive metabolic panel (02/07/2016 10:41 AM CDT) [facility] gist Method Time Signature Sodium 141 133 - 144 [place] mmol/L [facility] Potassium 4.8 3.4 - 5.3 [place] mmol/L [facility] Chloride 106 94 - 109 [place] mmol/L [facility] Carbon Dioxide 27 20 - 32 [place] mmol/L [facility] Anion Gap 8 3 - 14 [place] mmol/L [facility] Glucose 149 (H) 70 - 99 [place] mg/dL [facility] Urea Nitrogen 14 7 - 30 [place] mg/dL [facility] Creatinine 1.05 0.66 - [place] 1.25 mg/dL [facility] GFR Estimate 70 >60 [place] mL/min/1.[address] [facility] Comment: Non GFR Calc GFR Estimate If Black 84 >60 mL/min/1.7m2 F [facility] Comment: GFR Calc Calcium 8.9 8.5 - 10.1 mg/dL [place] CLIN ICS [facility] Bilirubin Total 0.4 0.2 - 1.3 mg/dL [facility] Albumin 3.8 3.4 - 5.0 g/dL [facility] S [facility] Protein Total 6.4 (L) 6.8 - 8.8 g/dL [place] CL INICS [facility] Alkaline Phosphatase 78 40 - 150 U/L [facility] EW [facility] ALT 28 0 - 70 U/L [facility] AST 16 0 - 45 U/L [facility] Specimen Anatomical Collection Method Collection Time Receive d Time (Source) Location / / Volume Laterality Blood specimen 02/07/2016 10:41 6 (specimen) AM CDT 10:46 AM CDT Andrey Tamez MD LAB - BLOOD ORDERABLES Performing Organization Address City/State/ZIP Code Phon e Number [facility] [address] [place] [address] (ABNORMAL) Hemoglobin A1c (02/07/2016 10:41 AM CDT) Analysis Performed At Patho logist Time Signature Hemoglobin A1C 7.5 (H) 4.3 - 6.0 [facility] Comment: Reviewed: OK with previous Specimen Anatomical Collection Method Collection Time Receive d Time (Source) Location / / Volume Laterality Blood specimen 02/07/2016 10:41 6 (specimen) AM CDT 10:46 AM CDT Andrey Tamez MD LAB - BLOOD ORDERABLES Performing Organization Address City/State/ZIP Code Phon e Number [facility] [address] [place] [address] [address] documented in this encounter Visit Diagnoses Diagnosis 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s (H) - Primary 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) Type II or unspecified type diabetes vijaya litus with neurological manifestations, not stated as uncontrolled Coronary artery disease involving ione coronary artery of ione heart, angina presence unspecified Hyperlipidemia LDL goal <100 Other and unspecified hyperlipidemia Essential hypertension with goal blood p ressure less than 140/90 documented in this encounter Care Teams Turbine Engineer Relationship Specialty Start Date End Date Andrey Tamez MD PCP - General 03/26/09 Andrey Tamez MD PCP - Assigned PCP 09/11/12 11/08/18 [address] [place], [place] [address] Andrey Tamez MD Assigned PCP 09/11/12 09/07/20 [address] [place] [address] documented as of this encounter
--- OUTSIDE RECORDS SUMMARY | 2022-08-10 09:39 | XMS_ITS | Encounter Summary ---
:1945 Author Organization [place] Address [address] [place] [address] Care Team Providers Name Role Phone Andrey Tamez MD Primary Care Provider Andrey Tamez MD Unavailable Andrey Tamez MD Unavailable Reason for Visit Reason Onset Date Comments Refill Request 01/15/2015 multiple medications Orders 01/15/2015 labs Encounter Details Date Type Department Care Team Description 01/15/2015 Refill [facility] Andrey Tamez MD Refill Request [facility] [place] [address] (multiple medications); [address] Orders (labs) [address] [place] [address] [place], [place] [phone] (Wo rk) [address] [phone] Social History Tobacco Use Types Packs/Day Years Used Date Smoking Tobacco: Former Cigarettes 0.5 16 Quit : 09/06/1978 Smokeless Tobacco: Never Alcohol Use Standard Drinks/Week Comments Yes 10 (1 standard drink = 0.6 oz pure alcoh ol) A drink every 1-2 weeks. 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 encounter Miscellaneous [...] CDT) P athologist Signature Creatinine 75 mg/dL [place] Urine [facility] Albumin Urine 7 mg/L [place] mg/L [facility] Albumin Urine 9.50 0 - 17 [place] mg/g Cr mg/g Cr [facility] Specimen Anatomical Collection Method Collection Time Receive d Time (Source) Location / / Volume Laterality Urine specimen 01/24/2015 8:28 AM 015 8:33 (specimen) CDT AM CDT Andrey Tamez MD LAB - URINE ORDERABLES Performing Organization Address City/State/ZIP Code Phon e Number [facility] [address] [phone] [facility] [address] [place] [address], [facility] [phone] (ABNORMAL) Hemoglobin A1c (01/24/2015 8:27 AM CDT) Analysis Performed At Patho logist Time Signature Hemoglobin A1C 7.3 (H) 4.3 - 6.0 [facility] Comment: Reviewed: OK with previous Specimen Anatomical Collection Method Collection Time Receive d Time (Source) Location / / Volume Laterality Blood specimen 01/24/2015 8:27 AM 015 8:32 (specimen) CDT AM CDT Andrey Tamez MD LAB - BLOOD ORDERABLES Performing Organization Address City/State/ZIP Code Phon e Number [facility] [address] [place], [place] [address] [address] (ABNORMAL) Lipid Profile with reflex to direct LDL (01/24/2015 8:27 AM CDT) P athologist Signature Cholesterol 135 <200 mg/dL [facility] Comment: LDL Cholesterol is the primary guide to therapy. The NCEP recommends further evaluation of: patients with cholesterol greater than 200 mg/dL if additional risk facto rs are present, cholesterol greater than 240 mg/dL, triglycerides greater than 1 50 mg/dL, or HDL less than 40 mg/dL. Triglycerides 216 (H) 0 - 150 mg/dL [place] CLI NICS [facility] HDL Cholesterol 35 (L) >40 mg/dL [place] CLINI CS [facility] LDL Cholesterol Calculated 57 0 - 129 mg/dL [facility] Comment: LDL Cholesterol is the primary guide to therapy: LDL-cholesterol goal in high risk patients is <100 mg/dL and in very high risk patients is <70 mg/dL. VLDL-Cholesterol 43 (H) 0 - 30 mg/dL [place] C LINICS [facility] Cholesterol/HDL Ratio 3.9 0.0 - 5.0 [facility] Specimen Anatomical Collection Method Collection Time Receive d Time (Source) Location / / Volume Laterality Blood specimen 01/24/2015 8:27 AM 015 8:32 (specimen) CDT AM CDT Andrey Tamez MD LAB - BLOOD ORDERABLES Performing Organization Address City/State/ZIP Code Phon e Number [facility] [address] [place] [address] (ABNORMAL) Comprehensive metabolic panel (BMP + Alb, Alk Phos, ALT, AST, Total. Bili, TP) (01/24/2015 8:27 AM CDT) Patholo gist Method Time Signature Sodium 138 133 - 144 [place] mmol/L [facility] Potassium 4.2 3.4 - 5.3 [place] mmol/L [facility] Chloride 105 94 - 109 [place] mmol/L [facility] Carbon Dioxide 27 20 - 32 [place] mmol/L [facility] Anion Gap 6 3 - 14 [place] mmol/L [facility] Glucose 159 (H) 70 - 99 [place] mg/dL [facility] Urea Nitrogen 19 7 - 30 [place] mg/dL [facility] Creatinine 0.98 0.66 - [place] 1.25 mg/dL [facility] GFR Estimate 75 >60 [place] mL/min/1.7 CLINICS m2 [facility] Comment: Non GFR Calc GFR Estimate If Black >90 >60 mL/min/1.7m2 F [facility] GFR Calc [facility] Calcium 8.8 8.5 - 10.1 mg/dL [place] CLIN ICS [facility] Bilirubin Total 0.4 0.2 - 1.3 mg/dL [facility] Albumin 3.7 3.4 - 5.0 g/dL [facility] Protein Total 6.2 (L) 6.8 - 8.8 g/dL [place] [facility] IN[facility] Alkaline Phosphatase 96 40 - 150 U/L [facility] ALT 26 0 - 70 U/L [facility] AST 12 0 - 45 U/L [facility] Specimen Anatomical Collection Method Collection Time Receive d Time (Source) Location / / Volume Laterality Blood specimen 01/24/2015 8:27 AM 015 8:32 (specimen) CDT AM CDT Andrey Tamez MD LAB - BLOOD ORDERABLES Performing Organization Address City/State/ZIP Code Phon e Number [facility] [address] [place] [address] (ABNORMAL) CBC with platelets (01/24/2015 8:27 AM CDT) P athologist Signature WBC 6.8 4.0 - 11.0 [place] 10e9/L [facility] RBC Count 4.26 (L) 4.4 - 5.9 [place] 10e12/L [facility] Comment: Reviewed: OK with previous Hemoglobin 14.2 13.3 - 17.7 g/dL [facility] Hematocrit 42.7 40.0 - 53.0 % [facility] MCV 100 78 - 100 fl [facility] MCH 33.3 (H) 26.5 - 33.0 pg [facility] Comment: Reviewed: OK with previous MCHC 33.3 31.5 - 36.5 g/dL [place] CLIN ICS [facility] RDW 11.9 10.0 - 15.0 % [facility] Platelet Count 185 150 - 450 10e9/L [facility] Specimen Anatomical Collection Method Collection Time Receive d Time (Source) Location / / Volume Laterality Blood specimen 01/24/2015 8:27 AM 015 8:32 (specimen) CDT AM CDT Andrey Tamez MD LAB - BLOOD ORDERABLES Performing Organization Address City/State/ZIP Code Phon e Number [facility] [address] [place], [place] [address] [address] documented in [...] plaque documented in this encounter Care Teams Tightening Machine Operator Relationship Specialty Start Date End Date Andrey Tamze MD PCP - General 03/26/09 Andrey Tamez MD PCP - Assigned PCP 09/11/12 11/08/18 [address] [place] [address] Andrey Tamez MD Assigned PCP 09/11/12 09/07/20 [address] [place] [address] documented as of this encounter
--- OUTSIDE RECORDS SUMMARY | 2022-08-10 09:39 | XMS_ITS | Encounter Summary ---
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 as of this encounter Last Filed Vital Signs Vital Sign Reading Time Taken Comments Blood Pressure 122/82 10/19/2012 9:37 AM SENIOR ONLINE MARKETING MANAGER Pulse 64 10/19/2012 9:37 AM SENIOR ONLINE MARKETING MANAGER Temperature 36.3 ??C (97.3 ??F) 10/19/2012 9:37 AM SENIOR ONLINE MARKETING MANAGER Respiratory Rate - - Oxygen Saturation 97% 10/19/2012 9:37 AM SENIOR ONLINE MARKETING MANAGER Inhaled Oxygen Concentration - - Weight 80.6 kg (177 lb 12.8 oz) 10/19/2012 9:37 AM SENIOR ONLINE MARKETING MANAGER Height 174.6 cm (5' 8.75) 10/19/2012 9:37 AM SENIOR ONLINE MARKETING MANAGER Body Mass Index 26.45 10/19/2012 9:37 AM SENIOR ONLINE MARKETING MANAGER documented in this encounter Patient Instructions Patient InstructionsAndrey Tamez MD - 10/19/2012 9:49 AM CST Everything looks fine! Morning fasting (pre-breakfast) glucoses should run below 130, otherwise call me. Refills of medications have been faxed to your pharmacy. Return for a fasting lab only appointment in six months (April 2013) See you in a year, sooner if problems. OR ONLINE MARKETING MANAGER documented in this encounter Progress Notes Andrey [...] year, sooner if problems. Andrey Tamez MD OR ONLINE MARKETING MANAGER documented in this encounter Nursing Notes 10/19/2012 9:30 AM CST >> MYRIAMNikos BHAKTA [facility] Oct 19, 2012 9:39 AM [...] kg).. BP completed using cuff size: large Eugeniae Myriam Bhakta MA documented in this encounter Plan of Treatment Not on filedocumented as of this encounter Visit Diagnoses Diagnosis CAD (coronary artery disease) - Primary Coronary atherosclerosis of unspecified type of vessel, [place] or graft Presence of stent in anterior [...] organs documented in this encounter Care Teams Mass Spectroscopist Relationship Specialty Start Date End Date Andrey Tamez MD PCP - General 03/26/09 Andrey Tamez MD PCP - Assigned PCP 09/11/12 11/08/[address] [place] [address] Andrey Tamez MD Assigned PCP 09/11/12 09/07/[address] [place] [address] documented as of this encounter
--- OUTSIDE RECORDS SUMMARY | 2022-08-10 09:39 | XMS_ITS | Encounter Summary ---
:1945 Author Organization [place] Address [address] [place] [address] Care Team Providers Name Role Phone Andrey Tamez MD Primary Care Provider Andrey Tamez MD Unavailable Andrey Tamez MD Unavailable Reason for Visit Reason Comments Health Coaching - Research Face #3 Encounter Details Date Type Department Care Team Description 09/13/2013 Allied Health/Nurse Health [facility] Coaching - Visit [facility] (Face #3) [address] [place] [phone] Social History Tobacco Use Types Packs/Day Years Used Date Smoking Tobacco: Former Cigarettes 0.5 16 Quit : 09/06/1978 Smokeless Tobacco: Never Alcohol Use Standard Drinks/Week Comments Yes 10 (1 standard drink = 0.6 oz pure alcoh ol) A drink every 1-2 weeks. 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 encounter Patient Instructions Patient InstructionsLeslee Godoy - 09/13/2013 11:02 AM CST September 13, 2013 [facility] [place] [address] [facility] [address] [phone] Health Coaching Progress Note Patient Name: Rodolfo Quevedo Date: September 13, 2013 Plan: (Homework, other): Patient was encouraged to continue using Ancestry to seek condition-related information and education, as well as schedule a follow up appointment with the Health Surgery Manager in 4 weeks Patient has set self-identified [...] arises drink water instead Leslee Godoy Health Surgery Manager 09/13/2013 11:56 AM SERVER documented in this encounter Progress Notes Leslee Godoy - 09/13/2013 2:47 PM CST September 13, 2013 [place] [address] [place] [address] [facility] [address] Health Coaching Progress Note Patient Name: Rodolfo [...] Knowing what to eat. Intervention: Motivational Interviewing [place] Intervention: Expressed Empathy/Understanding, Supported Autonomy, Collaboration, Evocation, [...] other): Patient was encouraged to continue using Ancestry to seek condition-related information and education, as well as schedule a follow up appointment with the Health Surgery Manager in 3 weeks Patient has set self-identified [...] arises drink water instead Leslee Godoy Health Surgery Manager 09/13/2013 2:49 PM SERVER documented in this encounter Plan of Treatment Not on filedocumented as of this encounter Visit Diagnoses Diagnosis Type 2 diabetes, HbA1C goal < 8% (H) - P rimary Type II or unspecified type diabetes vijaya litus without mention of complication, not stated as uncontrolled documented in this encounter Care Teams De Ionizer Operator Relationship Specialty Start Date End Date Andrey Tamez MD PCP - General 03/26/09 Andrey Tamez MD PCP - Assigned PCP 09/11/12 11/08/18 [address] [place] [address] Andrey Tamez MD Assigned PCP 09/11/12 09/07/20 [address] [place], [place] [address]887 documented as of this encounter
--- OUTSIDE RECORDS SUMMARY | 2022-08-10 09:39 | XMS_ITS | Encounter Summary ---
:1945 Author Organization [place] Address [address] [place] [address] Care Team Providers Name Role Phone Andrey Tamez MD Primary Care Provider Andrey Tamez MD Unavailable Andrey Tamez MD Unavailable Reason for Visit Reason Comments Health Coaching - Research Face #4 Encounter Details Date Type Department Care Team Description 10/04/2013 Allied Health/Nurse Health [facility] Coaching - Visit [facility] (Face #4) [address] [place] [phone] Social History Tobacco Use Types Packs/Day Years Used Date Smoking Tobacco: Former Cigarettes 0.5 16 Quit : 09/06/1978 Smokeless Tobacco: Never Alcohol Use Standard Drinks/Week Comments Yes 10 (1 standard drink = 0.6 oz pure alcoh ol) A drink every 1-2 weeks. 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 documented as of this encounter Patient Instructions Patient InstructionsLeslee Godoy - 10/04/2013 11:03 AM CST October 04, 2013 [facility] [address] [facility] [address] [phone] Health Coaching Progress Note Patient Name: Rodolfo Quevedo Date: October 04, 2013 Plan: (Homework, other): Patient was encouraged to continue using makerSQR to seek condition-related information and education, as well as schedule a follow up appointment with the Health Tumbling Machine Operator in 4 weeks Patient has set self-identified [...] options or water daily Leslee Godoy Health Tumbling Machine Operator 10/04/2013 11:31 AM NATED PLASTICS ASSEMBLER AND GLUER documented in this encounter Progress Notes Leslee Godoy - 10/04/2013 12:16 PM CST October 04, [address] [address] [phone] Health Coaching Progress Note Patient Name: Rodolfo [...] / Issues: None discussed Intervention: Motivational Interviewing [place] Intervention: Expressed Empathy/Understanding, Supported Autonomy, Collaboration, Evocation, [...] other): Patient was encouraged to continue using makerSQR to seek condition-related information and education, as well as schedule a follow up appointment with the Health Tumbling Machine Operator in 4 weeks Patient has set self-identified [...] options or water daily Leslee Godoy Health Tumbling Machine Operator 10/04/2013 12:17 PM NATED PLASTICS ASSEMBLER AND GLUER documented in this encounter Plan of Treatment Not on filedocumented as of this encounter Visit Diagnoses Diagnosis Type 2 diabetes, HbA1C goal < 8% (H) - P rimary Type II or unspecified type diabetes vijaya litus without mention of complication, not stated as uncontrolled documented in this encounter Care Teams An/Sqq 89(V)15 Sonar System Journeyman Relationship Specialty Start Date End Date Andrey Tamez MD PCP - General 03/26/09 Andrey Tamez MD PCP - Assigned PCP 09/11/12 11/08/18 [address] [place] [address] Andrey Tamez MD Assigned PCP 09/11/12 09/07/20 [address] [place] [address] documented as of this encounter
--- OUTSIDE RECORDS SUMMARY | 2022-08-10 09:39 | XMS_ITS | Encounter Summary ---
:1945 Author Organization [place] Address [address] [place] [address] Care Team Providers Name Role Phone Andrey Tamez MD Primary Care Provider Andrey Tamez MD Unavailable Andrey Tamez MD Unavailable Reason for Visit Reason Comments Health Coaching - Research Face #2 Encounter Details Date Type Department Care Team Description 07/19/2013 Allied Health/Nurse Health [facility] Coaching - Visit [facility] (Face #2) [address] [place] [phone] Social History Tobacco Use Types Packs/Day Years Used Date Smoking Tobacco: Former Cigarettes 0.5 16 Quit : 09/06/1978 Smokeless Tobacco: Never Alcohol Use Standard Drinks/Week Comments Yes 10 (1 standard drink = 0.6 oz pure alcoh ol) A drink every 1-2 weeks. 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 encounter Patient Instructions Patient InstructionsLeslee Godoy - 07/19/2013 10:44 AM CST July 19, 2013 [facility] [address] [facility] [address] [phone] Health Coaching Progress Note Patient Name: Rodolfo Quevedo Date: July 19, 2013 Plan: (Homework, other): Patient was encouraged to continue using CromoUp to seek condition-related information and education, as well as schedule a follow up appointment with the Health Mill Platform Supervisor in 4 weeks Patient has set self-identified goals and will monitor progress until the next appointment. GOALS: Patient will work on the following goals until our next meeting 08/16 - 11:00am: 1) Continue AM Blood Sugar, Weight, and BP checking daily and daily exercise 2) Eat 4 meals a day 7x week - (plan the day out ahead to support success) 3) Continue reading labels and carbohydrate information whenever shopping and educate myself more in that 4) Become more aware of portion sizes at each meal 5) Go into CromoUp 1x a week for education * Overall vision to lose 5 lbs. In regards to other areas can gain blood for testing contact Physician, Rn Labor Delivery or Diabetes Nurse Line [phone] Leslee Godoy Health Mill Platform Supervisor 07/19/2013 11:29 AM TRIC ORGAN CHECKER documented in this encounter Progress Notes Leslee Godoy - 07/19/2013 11:46 AM CST July 19, 2013 [place] [address] [place] [address] [facility] [address] [phone] Health Coaching Progress Note Patient Name: Rodolfo [...] portions creating eating schedule Intervention: Motivational Interviewing [place] Intervention: Expressed Empathy/Understanding, Supported Autonomy, Collaboration, Evocation, [...] other): Patient was encouraged to continue using CromoUp to seek condition-related information and education, as well as schedule a follow up appointment with the Health Mill Platform Supervisor in 4 weeks Patient has set self-identified [...] sizes at each meal 5) Go into CromoUp 1x a week for education * Overall vision to lose 5 lbs. In regards to other areas can gain blood for testing contact Physician, Rn Labor Delivery or Diabetes Nurse Line [phone] Leslee Godoy Health Mill Platform Supervisor 07/19/2013 11:48 AM TRIC ORGAN CHECKER documented in this encounter Plan of Treatment Not on filedocumented as of this encounter Visit Diagnoses Diagnosis Type 2 diabetes, HbA1C goal < 8% (H) - P rimary Type II or unspecified type diabetes vijaya litus without mention of complication, not stated as uncontrolled documented in this encounter Care Teams Floor Layer Tile Relationship Specialty Start Date End Date Andrey Tamez MD PCP - General 03/26/09 Andrey Tamez MD PCP - Assigned PCP 09/11/12 11/08/18 [address] [address] Andrey Tamez MD Assigned PCP 09/11/12 09/07/20 [address] [facility] [address] [place], [place] [phone] documented as of this encounter
--- OUTSIDE RECORDS SUMMARY | 2022-08-10 09:39 | XMS_ITS | Encounter Summary ---
:1945 Author Organization [place] Address [address] [place] [address] Care Team Providers Name Role Phone Andrey Tamez MD Primary Care Provider Andrey Tamez MD Unavailable Andrey Tamez MD Unavailable Reason for Visit Reason Comments Health Coaching - Research Face #1 Encounter Details Date Type Department Care Team Description 06/21/2013 Allied Health/Nurse Health [facility] Coaching - Visit [facility] (Face #1) [address] [place] [phone] Social History Tobacco Use Types Packs/Day Years Used Date Smoking Tobacco: Former Cigarettes 0.5 16 Quit : 09/06/1978 Smokeless Tobacco: Never Alcohol Use Standard Drinks/Week Comments Yes 10 (1 standard drink = 0.6 oz pure alcoh ol) A drink every 1-2 weeks. 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 documented as of this encounter Patient Instructions Patient InstructionsLeslee Godoy - 06/21/2013 11:04 AM CDT June 21, 2013 [facility] [address] [facility] [address] [phone] Health Coaching Progress Note Patient Name: Rodolfo Quevedo Date: June 21, 2013 Plan: (Homework, other): Patient was encouraged to continue using StepOut to seek condition-related information and education, as well as schedule a follow up appointment with the Health Component Assembler Supervisor in 4 weeks Patient has set self-identified goals and will monitor progress until the next appointment. GOALS: Patient will work on the following goals until our next meeting 10:45am on 13: 1) continue exercise daily 2) test fasting/AM blood sugar 7x week 3) make follow-up lab appointment for A1C test 4) read nutrition topics sent by middle school football coach in StepOut 6) continue reading labels and look at carbohydrate information 5) become more aware of portion sizes daily Leslee Godoy Health Component Assembler Supervisor 06/21/2013 12:07 PM documented in this encounter Progress Notes Leslee Godoy - 06/21/2013 2:07 PM CDT June 21, 2013 [place] [address] [place] [address] [facility] [address] Health Coaching Progress Note Patient Name: Rodolfo [...] / Issues: None discussed Intervention: Motivational Interviewing [place] Intervention: Expressed Empathy/Understanding, Supported Autonomy, Collaboration, Evocation, [...] other): Patient was encouraged to continue using StepOut to seek condition-related information and education, as well as schedule a follow up appointment with the Health Component Assembler Supervisor in 4 weeks Patient has set self-identified goals and will monitor progress until the next appointment. GOALS: Patient will work on the following goals until our next meeting 10:45am on : 1) continue exercise daily 2) test fasting/AM blood sugar 7x week 3) make follow-up lab appointment for A1C test 4) read nutrition topics sent by middle school football coach in StepOut 6) continue reading labels and look at carbohydrate information 5) become more aware of portion sizes daily Leslee Godoy Health Component Assembler Supervisor 06/21/2013 2:09 PM documented in this encounter Plan of Treatment Not on filedocumented as of this encounter Visit Diagnoses Diagnosis Type 2 diabetes, HbA1C goal < 8% (H) - P rimary Type II or unspecified type diabetes vijaya litus without mention of complication, not stated as uncontrolled documented in this encounter Care Teams Pot Puncher Relationship Specialty Start Date End Date Andrey Tamez MD PCP - General 03/26/09 Andrey Tamez MD PCP - Assigned PCP 09/11/12 11/08/18 [address] [place], [place] [address] Andrey Tamez MD Assigned PCP 09/11/12 09/07/20 [address] [place] [address] documented as of this encounter
--- OUTSIDE RECORDS SUMMARY | 2022-08-10 09:39 | XMS_ITS | Encounter Summary ---
:1945 Author Organization [place] Address [address] [place] [address] Care Team Providers Name Role Phone Andrey Tamez MD Primary Care Provider Andrey Tamez MD Unavailable Andrey Tamez MD Unavailable Encounter Details Date Type Department Care Team Description 06/24/2015 Orders Only [facility] Andrey Tamez, Type 2 diabetes [facility] [place] [facility] mellitus with other [address] [place] complications (H) [address] [place], [place] (Primary Dx) [place] [phone] Social History Tobacco Use Types Packs/Day Years Used Date Smoking Tobacco: Former Cigarettes 0.5 16 Quit : 09/06/1978 Smokeless Tobacco: Never Alcohol Use Standard Drinks/Week Comments Yes 10 (1 standard drink = 0.6 oz pure alcoh ol) A drink every 1-2 weeks. 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
--- OUTSIDE RECORDS SUMMARY | 2022-08-10 09:39 | XMS_ITS | Encounter Summary ---
:1945 Author Organization [place] Address [address] [place] [address] Care Team Providers Name Role Phone Andrey Tamez MD Primary Care Provider Andrey Tamez MD Unavailable Andrey Tamez MD Unavailable Reason for Visit Reason Onset Date Comments Refill Request 06/28/2014 SImvastatin Metformi n Encounter Details Date Type Department Care Team Description 06/28/2014 Refill [facility] Andrey Tamez MD Refill Request Clinic [place] [address] [facility] (SImvastatin Metformin) [address] [place] [address] [place], [place] [phone] (Wo rk) [address] [phone] Social History Tobacco Use Types Packs/Day Years Used Date Smoking Tobacco: Former Cigarettes 0.5 16 Quit : 09/06/1978 Smokeless Tobacco: Never Alcohol Use Standard Drinks/Week Comments Yes 10 (1 standard drink = 0.6 oz pure alcoh ol) A drink every 1-2 weeks. 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 Miscellaneous [...] 06/28/2014 6:14 PM CDT Refill request from [facility] pharmacy for: SImvastatin05/01/14 Metformin 05/01/14 Last O/V: 01/31/14 Last Refill: see above documented in this encounter Plan of Treatment Not on filedocumented as of this encounter Visit Diagnoses Diagnosis CAD (coronary artery disease) Coronary atherosclerosis of unspecified type of vessel, [place] or graft Type 2 diabetes, HbA1C goal < 8% (H) Type II or unspecified type diabetes vijaya litus without mention of complication, not stated as uncontrolled documented in this encounter Care Teams Sign Board Erector Relationship Specialty Start Date End Date Andrey Tamez MD PCP - General 03/26/09 Andrey Taemz MD PCP - Assigned PCP 09/11/12 11/08/18 [address] [facility] [address] [place] [address] Andrey Tamez MD Assigned PCP 09/11/12 09/07/20 [address] [facility] 160 [place], [place] [address] documented as of this encounter
--- OUTSIDE RECORDS SUMMARY | 2022-08-10 09:39 | XMS_ITS | Encounter Summary ---
:1945 Author Organization [place] Address [address] [place] [address] Care Team Providers Name Role Phone Andrey Tamez MD Primary Care Provider Andrey Tamez MD Unavailable Andrey Tamez MD Unavailable Reason for Visit Reason Onset Date Comments Refill Request 10/29/2014 Simvastatin,Metformi n Encounter Details Date Type Department Care Team Description 10/29/2014 Refill [facility] Andrey Tamez MD Refill Request Clinic [place] [address] [facility] (Simvastatin,Metformin) [address] [place] [address] [place] [address] [place], [place] [phone] (Wo rk) [address] [phone] Social History Tobacco Use Types Packs/Day Years Used Date Smoking Tobacco: Former Cigarettes 0.5 16 Quit : 09/06/1978 Smokeless Tobacco: Never Alcohol Use Standard Drinks/Week Comments Yes 10 (1 standard drink = 0.6 oz pure alcoh ol) A drink every 1-2 weeks. 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 Med refilled x 1. RDS MANAGEMENT SPECIALIST Telephone Encounter - Aditi Yeager - 10/29/2014 3:55 PM CST Refill request from [facility] pharmacy for: Simvastatin 40MG Metformin 500MG Last O/V: 01/31/14 Last Refill: 06/30/14 both RDS MANAGEMENT SPECIALIST documented in this encounter Plan of Treatment Not on filedocumented as of this encounter Visit Diagnoses Diagnosis Type 2 diabetes, HbA1C goal < 8% (H) - P rimary Type II or unspecified type diabetes vijaya litus without mention of complication, not stated as uncontrolled CAD (coronary artery disease) Coronary atherosclerosis of unspecified type of vessel, [place] or graft documented in this encounter Care Teams Boat Designer Relationship Specialty Start Date End Date Andrey Tamez MD PCP - General 03/26/09 Andrey Tamez MD PCP - Assigned PCP 09/11/12 11/08/18 [address] [facility] 160 [place] [address] Andrey Tamez MD Assigned PCP 09/11/12 09/07/20 [address] [facility] 160 [place], [place] [phone] documented as of this encounter
--- OUTSIDE RECORDS SUMMARY | 2022-08-10 09:39 | XMS_ITS | Encounter Summary ---
:1945 Author Organization [place] Address [address] [place] [address] Care Team Providers Name Role Phone Andrey Tamez MD Primary Care Provider Andrey Tamez MD Unavailable Andrey Tamez MD Unavailable Reason for Visit Reason Onset Date Comments Medication Request 08/27/2014 new glucose monitor and supplies Encounter Details Date Type Department Care Team Description 08/27/2014 Telephone [facility] Andrey Tamez MD Medication Request Clinic [place] [address] [facility] (new glucose monitor [address] and supplies) [address] [place] [address] [place], [place] [phone] (Wo rk) [address] [phone] Social History Tobacco Use Types Packs/Day Years Used Date Smoking Tobacco: Former Cigarettes 0.5 16 Quit : 09/06/1978 Smokeless Tobacco: Never Alcohol Use Standard Drinks/Week Comments Yes 10 (1 standard drink = 0.6 oz pure alcoh ol) A drink every 1-2 weeks. 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 ETO SPECIALIST Telephone Encounter - Steph Walsh, RN - 08/27/2014 9:24 AM CST Received request from [facility] stating pt is asking for a new meter and testing supplies for BID testing. Previous orders were for once daily testing. DME order pending for meter and testing supplies. Will send to MD to review for frequency of testing. ETO SPECIALIST documented in this encounter Plan of Treatment Not on filedocumented as of this encounter Visit Diagnoses Diagnosis Type 2 diabetes, HbA1C goal < 8% (H) - P rimary Type II or unspecified type diabetes vijaya litus without mention of complication, not stated as uncontrolled documented in this encounter Care Teams Police Booking Officer Relationship Specialty Start Date End Date Andrey Tamez MD PCP - General 03/26/09 Andrey Tamez MD PCP - Assigned PCP 09/11/12 11/08/18 [address] [place] [address] Andrey Tamez MD Assigned PCP 09/11/12 09/07/20 [address] [place] [address] documented as of this encounter
--- OUTSIDE RECORDS SUMMARY | 2022-08-10 09:40 | XMS_ITS | Encounter Summary ---
:1945 Author Organization [place] Address [address] [place] [address] Care Team Providers Name Role Phone Andrey Tamez MD Primary Care Provider Reason for Visit Reason Onset Date Comments Chronic Care Conference Provider Overview 12/10/2010 Encounter Details Date Type Department Care Team Description 12/10/2010 Telephone [facility] Andrey Tamez MD Chronic Care Clinic [place] [address] Conference Provider [address] Overview [address] [place] [address] [place], [place] [phone] (Wo rk) [address] [phone] Social History Tobacco Use Types Packs/Day Years Used Date Smoking Tobacco: Former Cigarettes 0.5 16 Quit : 09/06/1978 Alcohol Use Standard Drinks/Week Comments Yes 10 (1 standard drink = 0.6 oz pure alcoh ol) A drink every 1-2 weeks. 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 Telephone Encounter - Mick Bhakta - 12/11/2010 7:54 AM CDT LMOV on [...] Coronary atherosclerosis of unspecified type of vessel, [place] or graft Type 2 diabetes, HbA1C goal < 8% (H) Type II or unspecified type diabetes vijaya litus without mention of complication, not stated as uncontrolled documented in this encounter Care Teams Behavioral Health Counselor Relationship Specialty Start Date End Date Andrey Tamez MD PCP - General 03/26/09 documented as of this encounter
--- OUTSIDE RECORDS SUMMARY | 2022-08-10 09:40 | XMS_ITS | Encounter Summary ---
:1945 Author Organization [facility] Address [address] [place] [address] Care Team Providers Name Role Phone Andrey Tamez MD Primary Care Provider Reason for Visit Reason Onset Date Comments Patient Inquiry 10/21/2011 need to stop plavix prior to procedure? Encounter Details Date Type Department Care Team Description 10/21/2011 Telephone [facility] Andrey Tamez MD Patient Inquiry (need Clinic [place] [address] to stop plavix prior [address] to procedure?) [address] [place] [address] [place], [place] [phone] (Wo rk) [address] [phone] Social History Tobacco Use Types Packs/Day Years Used Date Smoking Tobacco: Former Cigarettes 0.5 16 Quit : 09/06/1978 Smokeless Tobacco: Never Alcohol Use Standard Drinks/Week Comments Yes 10 (1 standard drink = 0.6 oz pure alcoh ol) A drink every 1-2 weeks. 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 Pt states that he will stop plavix starting today. RVISOR LEAD REFINERY Telephone Encounter - Andrey Tamez MD - 10/21/2011 3:42 PM CST Stop Plavix 7 days prior to procedure. Please advise pt. RVISOR LEAD REFINERY Telephone Encounter - Laquita Walter - 10/21/2011 2:55 PM CST Pt is scheduled to have colonoscopy on Wednesday and needs to know when to stop plavix? Please advise. RVISOR LEAD REFINERY documented in this encounter Plan of Treatment Not on filedocumented as of this encounter Visit Diagnoses Not on filedocumented in this encounter Care Teams Manager Service Desk Relationship Specialty Start Date End Date Andrey Tamez MD PCP - General 03/26/09 documented as of this encounter
--- OUTSIDE RECORDS SUMMARY | 2022-08-10 09:40 | XMS_ITS | Encounter Summary ---
:1945 Author Organization [facility] Address [address] [place] [address] Care Team Providers Name Role Phone Andrey Tamez MD Primary Care Provider Reason for Visit Auth/Cert - Closed Specialty Diagnoses / Procedures Referred By Contact Refer red To Contact Gastroenterology Diagnoses screening colonosopy Endoscopy Procedures COLONOSCOPY [address] [place] [address] Phone: Fax: Referral ID Status Reason Start Date Expiration Date Visits Requ ested Visits Authorized [id number] Closed 10/06/2011 04/03/2012 1 1 Encounter Details Date Type Department Care Team Description 10/26/2011 Surgery [facility] Endoscopy Nicolas Nuno MD Colonoscopy [facility] [address] [facility] [address] [place] [address] [place] [address] [phone] (Wo rk) Surgery Details Date/Time Status Location OR Service Patient Class Case Case Trauma Class Type Case? 10/26/11 Posted GI GI C Gastroenterology Outpatient 10:00 AM Panel 1 Procedure LRB Anes Op Region Wound Class Commen ts Colonoscopy N/A Conscious Sedation Rectum II-Clean Contami nated Colonoscopy Surgeon Surgeon Role Service Panel Nicolas Cook MD Primary Gastroenterology 1 Special Needs Referring: [facility] BD letter documented in this encounter Social History Tobacco Use Types Packs/Day Years Used Date Smoking Tobacco: Former Cigarettes 0.5 16 Quit : 09/06/1978 Smokeless Tobacco: Never Alcohol Use Standard Drinks/Week Comments Yes 10 (1 standard drink = 0.6 oz pure alcoh ol) A drink every 1-2 weeks. 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 documented as of this encounter Last Filed Vital Signs Vital Sign Reading Time Taken Comments Blood Pressure 130/82 10/26/2011 10:30 AM CABLE INSTALLER REPAIRER HELPER Pulse - - Temperature - - Respiratory Rate 16 10/26/2011 10:25 AM CABLE INSTALLER REPAIRER HELPER Oxygen Saturation 91% 10/26/2011 10:30 AM CABLE INSTALLER REPAIRER HELPER Inhaled Oxygen Concentration - - Weight 80.3 kg (177 lb) 10/26/2011 9:55 AM CABLE INSTALLER REPAIRER HELPER Height 177.8 cm (5' 10) 10/26/2011 9:55 AM CABLE INSTALLER REPAIRER HELPER Body Mass Index 25.4 10/26/2011 9:55 AM CABLE INSTALLER REPAIRER HELPER documented in this encounter Medications at Time [...] 10/26/2011 10:49 AM CST See Provation note E INSTALLER REPAIRER HELPER documented in this encounter Plan of Treatment Not on filedocumented as of this encounter Procedures Procedure Name Priority Date/Time Associated Diagnosis Comme nts COLONOSCOPY 10/26/2011 10:03 AM CABLE INSTALLER REPAIRER HELPER screening Special Needs Referring: [facility] guadalupe guaman COLONOSCOPY Routine 10/26/2011 9:59 AM CABLE INSTALLER REPAIRER HELPER Resul ts for this procedure are in the results section . documented in this encounter Results COLONOSCOPY (10/26/2011 9:59 AM CABLE INSTALLER REPAIRER HELPER) [facility] Method Time Signature COLONOSCOPY [facility] RAD IOLOGY RESULTS Patient Name: Rodolfo [...] / / Volume Laterality 10/26/2011 9:59 AM CABLE INSTALLER REPAIRER HELPER Andrey Tamez MD PROCEDURES Performing Organization Address City/State/ZIP Code Phon e Number RADIOLOGY RESULTS documented in this encounter Visit Diagnoses Not on filedocumented in this encounter Administered Medications Inactive Administered Medications - up to 3 most recent administrations Medication Order MAR Action Action Date Dose Rate Site fentanyl (SUBLIMAZE) injection Given 10/26/2011 10:29 AM CABLE INSTALLER REPAIRER HELPER 100 mcg PRN, moderate to severe pain, Starting on 10/26/11 at 1029, Intra-procedure midazolam (VERSED) injection Given 10/26/2011 10:29 AM CABLE INSTALLER REPAIRER HELPER 2 mg PRN, anxiety, Starting on 10/26/11 at 1029, Intra-procedure documented in this encounter Active and Recently Administered Medications Times are shown in CABLE INSTALLER REPAIRER HELPER. PRN Medication Order 10/24/2011 10/25/2011 10/26/2011 fentanyl (SUBLIMAZE) injection (CANCELED) 1029 (Given - Provider: Lina Pablo, RN) PRN, moderate to severe pain, Starting 10/26/11 at 1029, Intr a-procedure midazolam (VERSED) injection (CANCELED) 1029 (Given - Provider: Lina Pablo RN) PRN, anxiety, Starting 10/26/11 at 1029, Intra-procedure documented in this encounter Care Teams Turbine Subassembler Relationship Specialty Start Date End Date Andrey Tamez MD PCP - General 03/26/09 documented as of this encounter
--- OUTSIDE RECORDS SUMMARY | 2022-08-10 09:40 | XMS_ITS | Encounter Summary ---
:1945 Author Organization [facility] Address [address] [place] [address] Care Team Providers Name Role Phone Andrey Tamez MD Primary Care Provider Reason for Visit Reason Comments Pain c/o intermitten dull pain in R side chest under armpit x10 days. Hx of cold sx x1 months. On ABX. Encounter Details Date Type Department Care Team Description 09/08/2011 Office Visit [facility] Noris Llamas of [facility] [place] [facility], [address] not elsewhere [place], [place] classified (Primary [address] [address] Dx) [place], [place] [phone] (Wo rk) [address] [phone] Social History Tobacco Use Types Packs/Day Years Used Date Smoking Tobacco: Former Cigarettes 0.5 16 Quit : 09/06/1978 Smokeless Tobacco: Never Alcohol Use Standard Drinks/Week Comments Yes 10 (1 standard drink = 0.6 oz pure alcoh ol) A drink every 1-2 weeks. 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 Last Filed Vital Signs Vital Sign Reading Time Taken Comments Blood Pressure 142/88 09/08/2011 7:33 AM BARREL TURNER Pulse 56 09/08/2011 7:33 AM BARREL TURNER Temperature 36.6 ??C (97.9 ??F) 09/08/2011 7:33 AM BARREL TURNER Respiratory Rate 20 09/08/2011 7:33 AM BARREL TURNER Oxygen Saturation - - Inhaled Oxygen Concentration - - Weight 80.5 kg (177 lb 8 oz) 09/08/2011 7:33 AM BARREL TURNER Height 177.8 cm (5' 10) 09/08/2011 7:33 AM BARREL TURNER Body Mass Index 25.47 09/08/2011 7:33 AM BARREL TURNER documented in this encounter Patient Instructions Patient InstructionsNoris Llamas NP - 09/08/2011 7:50 AM CST Continue levaquin Monitor sputum color and any fevers Noris Llamas CNP [place] documented in this encounter Progress Notes Noris [...] to improve as anticipated. Noris Llamas CNP [place] documented in this encounter Nursing Notes 09/08/2011 7:30 AM CST >> JADIEL PA Santoshobey Sep 08, 2011 7:36 AM Patient presents [...] Primary documented in this encounter Care Teams Humanities Instructor Relationship Specialty Start Date End Date Andrey Tamez MD PCP - General 03/26/09 documented as of this encounter
--- OUTSIDE RECORDS SUMMARY | 2022-08-10 09:40 | XMS_ITS | Encounter Summary ---
:1945 Author Organization [facility] Address [address] [place] [address] Care Team Providers Name Role Phone Andrey Tamez MD Primary Care Provider Encounter Details Date Type Department Care Team Description 02/12/[address] [facility] Typ e 2 diabetes, HbA1C [facility] goal < 8% (H) [address] [place] [address] Social History Tobacco Use Types Packs/Day Years Used Date Smoking Tobacco: Former Cigarettes 0.5 16 Quit : 09/06/1978 Alcohol Use Standard Drinks/Week Comments Yes 10 (1 standard drink = 0.6 oz pure alcoh ol) A drink every 1-2 weeks. 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 The NCEP recommends further evaluation of: patients with cholesterol greater than 200 mg/dL if additional risk facto rs are present, cholesterol greater than 240 mg/dL, triglycerides greater than 1 50 mg/dL, or HDL less than 40 mg/dL. Triglycerides 98 0 - 150 mg/dL [facility] HDL Cholesterol 34 (L) 40 - 110 mg/dL [facility] LDL Cholesterol Calculated 62 0 - 129 mg/dL [facility] Comment: LDL Cholesterol is the primary guide to therapy: LDL-cholesterol goal in high risk patients is <100 mg/dL and in very high risk patients is <70 mg/dL. VLDL-Cholesterol 20 0 - 30 mg/dL [facility] Cholesterol/HDL Ratio 3.4 0.0 - 5.0 [facility] Specimen Anatomical Collection Method Collection Time Receive d Time (Source) Location / / Volume Laterality Blood specimen 02/12/2011 8:22 AM 011 8:27 (specimen) CDT AM CDT Andrey Tamez MD LAB - BLOOD ORDERABLES Performing Organization Address City/[facility]/ZIP Code Phon e Number [address] [address] [facility] (ABNORMAL) Hemoglobin A1c (02/12/2011 8:22 AM CDT) athologist Signature Hemoglobin A1C 8.1 (H) 4.3 - 6.0 [facility] Specimen Anatomical Collection Method Collection Time Receive d Time (Source) Location / / Volume Laterality Blood specimen 02/12/2011 8:22 AM 011 8:27 (specimen) CDT AM CDT Andrey Tamez MD LAB - BLOOD ORDERABLES Performing Organization Address City/[facility]/ZIP Code Phon e Number [facility] [address] [place], [place] [address] [address] [facility] (ABNORMAL) Comprehensive metabolic panel (02/12/2011 8:22 AM CDT) P athologist Signature Sodium 139 133 - 144 [place] mmol/L [facility] Potassium 4.8 3.4 - 5.3 [place] mmol/L [facility] Chloride 103 94 - 109 [place] mmol/L [facility] Carbon Dioxide 24 20 - 32 [place] mmol/L [facility] Anion Gap 12 6 - 17 [place] mmol/L [facility] Glucose 140 (H) 60 - 99 [place] mg/dL [facility] Urea Nitrogen 23 7 - 30 [place] mg/dL [facility] Creatinine 1.12 0.66 - [place] 1.25 mg/dL [facility] GFR Estimate 66 >60 [place] mL/min/1.7 [facility] m2 LAB GFR Estimate If 80 >60 [facility] mL/min/1.7 [facility] m2 LAB Calcium 9.2 8.5 - 10.4 [place] mg/dL [facility] Bilirubin Total 0.8 0.2 - 1.3 [place] mg/dL [facility] Albumin 4.0 3.3 - 4.9 [place] g/dL [facility] Comment: Reference range changed on 05/08. Protein Total 6.7 (L) 6.8 - 8.8 g/dL [facility] Comment: As of 08, reference range reflects plasma specimen type. Alkaline Phosphatase 72 40 - 150 U/L [facility] ALT 20 0 - 70 U/L [facility] AST 20 0 - 55 U/L [facility] Specimen Anatomical Collection Method Collection Time Receive d Time (Source) Location / / Volume Laterality Blood specimen 02/12/2011 8:22 AM 011 8:27 (specimen) CDT AM CDT Andrey Tamez MD LAB - BLOOD ORDERABLES Performing Organization Address City/State/ZIP Code Phon e Number [facility] [address] [place] [address] [facility] documented in this encounter Visit Diagnoses Diagnosis Type 2 diabetes, HbA1C goal < 8% (H) Type II or unspecified type diabetes vijaya litus without mention of complication, not stated as uncontrolled documented in this encounter Care Teams Fire Protection Specialist Relationship Specialty Start Date End Date Andrey Tamez MD PCP - General 03/26/09 documented as of this encounter
--- OUTSIDE RECORDS SUMMARY | 2022-08-10 09:40 | XMS_ITS | Encounter Summary ---
:1945 Author Organization [facility] Address [address] [place] [address] Care Team Providers Name Role Phone Andrey Tamez MD Primary Care Provider Reason for Referral Referral not Required - Closed Specialty Diagnoses / Procedures Referred By Contact Refer red To Contact Diagnoses Screening colonoscopy Andrey Tamez MD [place] [address] [place] [address] [place] [address] [place] [address] Phone: Fax: Referral ID Status Reason Start Date Expiration Date Visits Requ ested Visits Authorized [id number] Closed 02/19/2011 08/18/2011 1 1 Reason for Visit Reason Comments Diabetes Pt does not have a monitor k it, colonescopy due , pnuemovax and tdap. Pre Visit Planning - Done Encounter Details Date Type Department Care Team Description [facility]2011 [facility] 2 [facility], HbA1C goal < 8% (H); [facility] [place] Hyperlipidemia LDL goal <100; [address] [place] [address] Unspecified e ssential hypertension; [address] Screening colonoscopy; [address] [place], [place] CAD (coronary artery disease ); [place] [address] Need for Tdap vaccination; [phone] Vaccin strep pneumoniae Social History Tobacco Use Types Packs/Day Years Used Date Smoking Tobacco: Former Cigarettes 0.5 16 Quit : 09/06/1978 Alcohol Use Standard Drinks/Week Comments Yes 10 (1 standard drink = 0.6 oz pure alcoh ol) A drink every 1-2 weeks. 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 CHOL 115 134 ??? HDL [...] continuous prn. Histories reviewed and updated in [facility]. REVIEW OF SYSTEMS: Complete/DM ROS - C: [...] Notes 02/19/2011 3:30 PM CDT >> MYRIAM Quiroz Feb 19, 2011 3:35 PM Patient presents [...] Coronary atherosclerosis of unspecified type of vessel, [place] or graft Need for Tdap vaccination Need for prophylactic vaccination with c ombined slkkczqmae-twdilrc-toxjbepee (DTP) vaccine Need for prophylactic vaccination agains t Streptococcus pneumoniae (pneumococcus) Need for prophylactic vaccination agains t streptococcus pneumoniae (pneumococcus) documented in this encounter Care Teams Ob Scrub Tech Relationship Specialty Start Date End Date Andrey Tamez MD PCP - General 03/26/09 documented as of this encounter
--- OUTSIDE RECORDS SUMMARY | 2022-08-10 09:40 | XMS_ITS | Encounter Summary ---
:1945 Author Organization [facility] Address [address] [place] [address] Care Team Providers Name Role Phone Andrey Tamez MD Primary Care Provider Andrey Tamez MD Unavailable Andrey Tamez MD Unavailable Reason for Visit Reason Onset Date Comments Orders 10/10/2012 LAB ORDERS Encounter Details Date Type Department Care Team Description 10/10/2012 [facility] Andrey Tamez MD Orders (LAB ORDERS) Clinic [place] [address] [facility] Laboratory [address] [place] [address] [place], [place] [phone] (Wo rk) [address] [phone] Social History Tobacco Use Types Packs/Day Years Used Date Smoking Tobacco: Former Cigarettes 0.5 16 Quit : 09/06/1978 Smokeless Tobacco: Never Alcohol Use Standard Drinks/Week Comments Yes 10 (1 standard drink = 0.6 oz pure alcoh ol) A drink every 1-2 weeks. 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 documented as of this encounter Plan of Treatment Not on filedocumented as of this encounter Visit Diagnoses Diagnosis Type 2 diabetes, HbA1C goal < 8% (H) - P rimary Type II or unspecified type diabetes vijaya litus without mention of complication, not stated as uncontrolled documented in this encounter Care Teams Laborer Cheesemaking Relationship Specialty Start Date End Date Andrey Tamez MD PCP - General 03/26/09 Andrey Tamez MD PCP - Assigned PCP 09/11/12 11/08/18 [address] [place], [place] [phone] Andrey Tamez MD Assigned PCP 09/11/12 09/07/20 [address] [place], [place] [phone] documented as of this encounter
--- OUTSIDE RECORDS SUMMARY | 2022-08-10 09:40 | XMS_ITS | Encounter Summary ---
:1945 Author Organization [facility] Address [address] [place] [address] Care Team Providers Name Role Phone Andrey Tamez MD Primary Care Provider Andrey Tamez MD Unavailable Andrey Tamez MD Unavailable Reason for Visit Reason Onset Date Comments Nurse Advice Line 09/07/2011 Encounter Details Date Type Department Care Team Description 09/07/2011 Telephone [facility] Andrey Tamez MD Nurse Advice Line [place] [address] [facility] [address] [place] [facility] [address] [place] [address] [place], [place] [phone] (Wo rk) [address] [phone] Social History Tobacco Use Types Packs/Day Years Used Date Smoking Tobacco: Former Cigarettes 0.5 16 Quit : 09/06/1978 Alcohol Use Standard Drinks/Week Comments Yes 10 (1 standard drink = 0.6 oz pure alcoh ol) A drink every 1-2 weeks. 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 Patient Gender: Male [place] Name: Shiela Slaughter Presenting Problem: I had [...] air. Be sure to clean according to manufacturing finance manager's instructions. - May inhale steam from hot [...] Medication Note: Allergy: Reaction: Procedure: Procedure Note: GER KNOWLEDGE documented in this encounter Plan of Treatment Not on filedocumented as of this encounter Visit Diagnoses Not on filedocumented in this encounter Care Teams Fiber Machine Tender Relationship Specialty Start Date End Date Andrey Tamez MD PCP - General 03/26/09 Andrey Tamez MD PCP - Assigned PCP 09/11/12 11/08/18 [address] [address] Andrey Tamez MD Assigned PCP 09/11/12 09/07/20 [address] [address] documented as of this encounter
--- OUTSIDE RECORDS SUMMARY | 2022-08-10 09:40 | XMS_ITS | Encounter Summary ---
:1945 Author Organization [place] Address [address] [place] [address] Care Team Providers Name Role Phone Andrey Tamez MD Primary Care Provider Reason for Visit Reason Onset Date Comments Refill Request 06/08/2011 Ramipril, Metoprolol , Vytorin and Plavix Encounter Details Date Type Department Care Team Description 06/08/2011 Refill [facility] Andrey Tamez MD Refill Request Clinic [place] [address] (Ramipril, Metoprolol, [address] Vytorin and Plavix) [address] [place] [address] [place], [place] [phone] (Wo rk) [address] [phone] Social History Tobacco Use Types Packs/Day Years Used Date Smoking Tobacco: Former Cigarettes 0.5 16 Quit : 09/06/1978 Alcohol Use Standard Drinks/Week Comments Yes 10 (1 standard drink = 0.6 oz pure alcoh ol) A drink every 1-2 weeks. 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
--- OUTSIDE RECORDS SUMMARY | 2022-08-10 09:40 | XMS_ITS | Encounter Summary ---
:1945 Author Organization [place] Address [address] [place] [address] Care Team Providers Name Role Phone Andrey Tamez MD Primary Care Provider Reason for Visit Reason Onset Date Comments Chronic Disease Management 03/19/2011 do want post visit [facility] calls Encounter Details Date Type Department Care Team Description 03/19/2011 Telephone [facility] Ostomy Nurse Andrey Tamez MD Chronic Disease [address] Management (do want [place], [place] 160 post visit BP calls) [phone] [place], [place] [phone] (Wo rk) Social History Tobacco Use Types Packs/Day Years Used Date Smoking Tobacco: Former Cigarettes 0.5 16 Quit : 09/06/1978 Alcohol Use Standard Drinks/Week Comments Yes 10 (1 standard drink = 0.6 oz pure alcoh ol) A drink every 1-2 weeks. 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
--- OUTSIDE RECORDS SUMMARY | 2022-08-10 09:40 | XMS_ITS | Encounter Summary ---
:1945 Author Organization [facility] Address [address] [place] [address] Care Team Providers Name Role Phone Andrey Tamez MD Primary Care Provider Andrey Tamez MD Unavailable Andrey Tamez MD Unavailable Encounter Details Date Type Department Care Team Description 10/11/2012 Orders Only [facility] Typ e 2 diabetes, HbA1C [facility] goal < 8% (H) (Primary Dx) [address] [place] [address] Social History Tobacco Use Types Packs/Day Years Used Date Smoking Tobacco: Former Cigarettes 0.5 16 Quit : 09/06/1978 Smokeless Tobacco: Never Alcohol Use Standard Drinks/Week Comments Yes 10 (1 standard drink = 0.6 oz pure alcoh ol) A drink every 1-2 weeks. 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 LIPID REFLEX TO DIRECT Routine 10/11/2012 9:40 AM Type 2 diabe jamila, Results for this LDL PANEL PHOTOGRAPH FINISHER HbA1C goal < 8% (H) procedur e are in the results section. HEMOGLOBIN A1C Routine 10/11/2012 9:40 AM Type 2 diabetes, Res ults for this PHOTOGRAPH FINISHER HbA1C goal < 8% (H) procedangela e are in the results section. COMPREHENSIVE Routine 10/11/2012 9:40 AM Type 2 diabetes, Resu lts for this METABOLIC PANEL PHOTOGRAPH FINISHER HbA1C goal < 8% (H) proce rickie are in the results section. documented in this encounter Results TSH with free T4 reflex (10/11/2012 11:39 AM PHOTOGRAPH FINISHER) athologist Signature TSH 1.00 0.4 - 5.0 [facility] mU/L CLINIC LAB Specimen Anatomical Collection Method Collection Time Receive d Time (Source) Location / / Volume Laterality Blood specimen 10/11/2012 11:39 3 (specimen) AM PHOTOGRAPH FINISHER 11:44 AM PHOTOGRAPH FINISHER Andrey Tamez MD LAB - BLOOD ORDERABLES Performing Organization Address City/State/ZIP Code Phon e Number [facility] [address] [place] [address] [facility] [address] [place] [address] (ABNORMAL) Lipid panel reflex to direct LDL (10/11/2012 9:40 AM PHOTOGRAPH FINISHER) athologist Signature Cholesterol 160 0 - 200 [facility] Comment: LDL Cholesterol is the primary guide to therapy. The NCEP recommends further evaluation of: patients with cholesterol greater than 200 mg/dL if additional risk facto rs are present, cholesterol greater than 240 mg/dL, triglycerides greater than 1 50 mg/dL, or HDL less than 40 mg/dL. Triglycerides 177 (H) 0 - 150 mg/dL [facility] HDL Cholesterol 33 (L) 40 - 110 mg/dL [facility] LDL Cholesterol Calculated 92 0 - 129 mg/dL [facility] Comment: LDL Cholesterol is the primary guide to therapy: LDL-cholesterol goal in high risk patients is <100 mg/dL and in very high risk patients is <70 mg/dL. VLDL-Cholesterol 35 (H) 0 - 30 mg/dL [facility] Cholesterol/HDL Ratio 4.9 0.0 - 5.0 [facility] Specimen Anatomical Collection Method Collection Time Receive d Time (Source) Location / / Volume Laterality Blood specimen 10/11/2012 9:40 AM 013 9:45 (specimen) PHOTOGRAPH FINISHER AM PHOTOGRAPH FINISHER Andrey Tamez MD LAB - BLOOD ORDERABLES Performing Organization Address [facility] Phon e Number [facility] [address] [place] [address] [facility] [address] [place] [address] (ABNORMAL) Hemoglobin A1c (10/11/2012 9:40 AM PHOTOGRAPH FINISHER) athologist Signature Hemoglobin A1C 7.2 (H) 4.3 - 6.0 [facility] Specimen Anatomical Collection Method Collection Time Receive d Time (Source) Location / / Volume Laterality Blood specimen 10/11/2012 9:40 AM 013 9:45 (specimen) PHOTOGRAPH FINISHER AM PHOTOGRAPH FINISHER Andrey Tamez MD LAB - BLOOD ORDERABLES Performing Organization Address City/[facility] Phon e Number [facility] [address] [place], [place] [address] [address] [facility] [address] [place], [place] [address] [address] (ABNORMAL) Comprehensive metabolic panel (10/11/2012 9:40 AM PHOTOGRAPH FINISHER) athologist Signature Sodium 138 133 - 144 [facility] mmol/L CLINIC LAB Potassium 4.6 3.4 - 5.3 [facility] mmol/L [facility] LAB Chloride 102 94 - 109 [facility] mmol/L [facility]IC LAB Carbon Dioxide 27 20 - 32 [facility] mmol/L [facility]IC LAB Anion Gap 9 6 - 17 [facility] mmol/L [facility]INIC LAB Glucose 164 (H) 60 - 99 [facility] mg/dL CLINIC LAB Comment: Fasting specimen Urea Nitrogen 19 7 - 30 mg/dL [facility] Creatinine 0.89 0.66 - 1.25 mg/dL [facility] GFR Estimate 85 >60 mL/min/1.7m2 [facility] GFR Estimate If Black >90 >60 mL/min/1.7m2 [facility] Calcium 9.2 8.5 - 10.4 mg/dL [facility] Bilirubin Total 0.5 0.2 - 1.3 mg/dL [facility] Albumin 3.7 3.3 - 4.9 g/dL [facility] Comment: Reference range changed on 05/08. Protein Total 6.5 (L) 6.8 - 8.8 g/dL [facility] Comment: As of 08, reference range reflects plasma specimen type. Alkaline Phosphatase 95 40 - 150 U/L [facility] ALT 27 0 - 70 U/L [facility] LAB AST 19 0 - 45 U/L [facility] LAB Specimen Anatomical Collection Method Collection Time Receive d Time (Source) Location / / Volume Laterality Blood specimen 10/11/2012 9:40 AM 013 9:45 (specimen) PHOTOGRAPH FINISHER AM PHOTOGRAPH FINISHER Andrey Tamez MD LAB - BLOOD ORDERABLES Performing Organization Address City/State/ZIP Code Phon e Number [facility] [address] [place] [address] [facility] [address] [place] [address] [phone] documented in this encounter Visit Diagnoses Diagnosis Type 2 diabetes, HbA1C goal < 8% (H) - P rimary Type II or unspecified type diabetes vijaya litus without mention of complication, not stated as uncontrolled documented in this encounter Care Teams Director Selection And Administration Relationship Specialty Start Date End Date Andrey Tamez MD PCP - General 03/26/09 Andrey Tamez MD PCP - Assigned PCP 09/11/12 11/08/18 [address] [place] [address] Andrey Tamez MD Assigned PCP 09/11/12 09/07/20 [address] [place] [address] documented as of this encounter
--- OUTSIDE RECORDS SUMMARY | 2022-08-10 09:40 | XMS_ITS | Encounter Summary ---
:1945 Author Organization [place] Address [address] [place] [address] Care Team Providers Name Role Phone Andrey Tamez MD Primary Care Provider Reason for Visit Reason Onset Date Comments Refill Request 03/17/2012 V[facility]orin Encounter Details Date Type Department Care Team Description 03/17/2012 Refill [facility] Andrey Tamez MD Refill Request Clinic [place] [address] (Vytorin) [address] [place] [address] [place], [place] [phone] (Wo rk) [address] [phone] Social History Tobacco Use Types Packs/Day Years Used Date Smoking Tobacco: Former Cigarettes 0.5 16 Quit : 09/06/1978 Smokeless Tobacco: Never Alcohol Use Standard Drinks/Week Comments Yes 10 (1 standard drink = 0.6 oz pure alcoh ol) A drink every 1-2 weeks. 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 documented as of this encounter Miscellaneous [...] 03/17/2012 4:09 PM CDT Refill request from [facility] pharmacy for: Vytorin Last O/V: 09/08/11 Last Refill: 06/08/11 documented in this encounter Plan of Treatment Not on filedocumented as of this encounter Visit Diagnoses Diagnosis Other and unspecified hyperlipidemia CAD (coronary artery disease) Coronary atherosclerosis of unspecified type of vessel, paimiut or graft documented in this encounter Care Teams Brake Machine Operator Relationship Specialty Start Date End Date Andrey Tamez MD PCP - General 03/26/09 documented as of this encounter
--- OUTSIDE RECORDS SUMMARY | 2022-08-10 09:40 | XMS_ITS | Encounter Summary ---
:1945 Author Organization [place] Address [address] [place] [address] Care Team Providers Name Role Phone Andrey Tamez MD Primary Care Provider Andrey Tamez MD Unavailable Andrey Tamez MD Unavailable Reason for Visit Reason Onset Date Comments Refill Request 10/13/2012 multiple Encounter Details Date Type Department Care Team Description 10/13/2012 MyC Refill [facility] Jdae Gill Refill Request Clinic Bryant Larson MD (multiple) [address] [facility] [address] [place] [address] [phone] Social History Tobacco Use Types Packs/Day Years Used Date Smoking Tobacco: Former Cigarettes 0.5 16 Quit : 09/06/1978 Smokeless Tobacco: Never Alcohol Use Standard Drinks/Week Comments Yes 10 (1 standard drink = 0.6 oz pure alcoh ol) A drink every 1-2 weeks. 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 documented as of this encounter Miscellaneous Notes Telephone Encounter - Laquita Walter - 10/13/2012 12:02 PM CST Refilled x 1 TECHNICIAN Telephone Encounter - Walter, Laquita - 10/13/2012 9:38 AM PAGE TECHNICIAN Message from [employer]: Original authorizing provider: MD Rodolfo Adair would like a refill of the following medications: simvastatin (ZOCOR) 20 MG tablet [Jade Gill MD] Preferred pharmacy: [facility] - [place], [place] - [address] [facility] Comment: Medication renewals requested in this message routed to other providers: ramipril (ALTACE) 10 MG capsule [Andrey Tamez MD, MD] metoprolol (LOPRESSOR) 100 MG tablet [Andrey Tamez MD, MD] clopidogrel (PLAVIX) 75 MG tablet [Andrey Tamez MD, MD] TECHNICIAN documented in this encounter Plan of Treatment Not on filedocumented as of this encounter Visit Diagnoses Diagnosis Other and unspecified hyperlipidemia - P rimary documented in this encounter Care Teams Pipe Smoking Machine Operator Relationship Specialty Start Date End Date Andrey Tamez MD PCP - General 03/26/09 Andrey Tamez MD PCP - Assigned PCP 09/11/12 11/08/18 [address] [place] [address] Andrey Tamez MD Assigned PCP 09/11/12 09/07/20 [address] [place] [address] documented as of this encounter
--- OUTSIDE RECORDS SUMMARY | 2022-08-10 09:40 | XMS_ITS | Encounter Summary ---
:1945 Author Organization [place] Address [address] [place] [address] Care Team Providers Name Role Phone Andrey Tamez MD Primary Care Provider Andrey Tamez MD Unavailable Andrey Tamez MD Unavailable Reason for Visit Reason Onset Date Comments Refill Request 10/13/2012 Encounter Details Date Type Department Care Team Description 10/13/2012 [facility] [place] [facility] Andrey Tamez MD Refill Request [place] [address] [facility] [address] [place] [address] [address] [place] [address] [phone] Social History Tobacco Use Types Packs/Day Years Used Date Smoking Tobacco: Former Cigarettes 0.5 16 Quit : 09/06/1978 Smokeless Tobacco: Never Alcohol Use Standard Drinks/Week Comments Yes 10 (1 standard drink = 0.6 oz pure alcoh ol) A drink every 1-2 weeks. 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 documented as of this encounter Miscellaneous Notes Telephone Encounter - Laquita Walter - 10/13/2012 12:02 PM CST Refilled x 1 DIRECTOR Telephone Encounter - Jose Angel Laquita - 10/13/2012 12:02 PM UNIT DIRECTOR Message from [employer]: Original authorizing provider: Andrey Tamez MD, MD Rodolfo Quevedo would like a refill of the following medications: ramipril (ALTACE) 10 MG capsule [Andrey Tamez MD, MD] metoprolol (LOPRESSOR) 100 MG tablet [Andrey Tamez MD, MD] clopidogrel (PLAVIX) 75 MG tablet [Andrey Tamez MD, MD] Preferred pharmacy: [facility] - [place], [place] - [address] [facility] Comment: Medication renewals requested in this message routed to other providers: simvastatin (ZOCOR) 20 MG tablet [Jade Gill MD] DIRECTOR documented in this encounter Plan of Treatment Not on filedocumented as of this encounter Visit Diagnoses Diagnosis TIA (transient ischaemic attack) Unspecified transient cerebral ischemia CAD (coronary artery disease) Coronary atherosclerosis of unspecified type of vessel, [place] or graft Unspecified essential hypertension documented in this encounter Care Teams Timber Sprinkler Relationship Specialty Start Date End Date Andrey Tamez MD PCP - General 03/26/09 Andrey Tamez MD PCP - Assigned PCP 09/11/12 11/08/[address] [place] [address] Andrey Tamez MD Assigned PCP 09/11/12 09/07/[address] [place] [address] documented as of this encounter
--- OUTSIDE RECORDS SUMMARY | 2022-08-10 09:40 | XMS_ITS | Encounter Summary ---
:1945 Author Organization [facility] Address [address] [place] [address] Care Team Providers Name Role Phone Andrey Tamez MD Primary Care Provider Encounter Details Date Type Department Care Team Description 03/23/2012 Orders Only [facility] and unspecified hyperlipidemia; [facility] Type 2 diabetes, HbA1C goal < 8% (H) [address] [place] [address] Social History Tobacco Use Types Packs/Day Years Used Date Smoking Tobacco: Former Cigarettes 0.5 16 Quit : 09/06/1978 Smokeless Tobacco: Never Alcohol Use Standard Drinks/Week Comments Yes 10 (1 standard drink = 0.6 oz pure alcoh ol) A drink every 1-2 weeks. 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 [facility] Albumin Urine Unable to 0 - 17 [facility] mg/g Cr calculate mg/g Cr [facility] Specimen Anatomical Collection Method Collection Time Receive d Time (Source) Location / / Volume Laterality Urine specimen 03/23/2012 8:50 AM 012 8:55 (specimen) CDT AM CDT Andrey Tamez MD LAB - URINE ORDERABLES Performing Organization Address City/[facility]/ZIP Code Phon e Number [phone] [place] [address] LABS (ABNORMAL) Hemoglobin A1c (03/23/2012 8:49 AM CDT) athologist Signature Hemoglobin A1C 7.7 (H) 4.3 - 6.0 [facility] LAB Specimen Anatomical Collection Method Collection Time Receive d Time (Source) Location / / Volume Laterality Blood specimen 03/23/2012 8:49 AM 012 8:54 (specimen) CDT AM CDT Andrey Tamez MD LAB - BLOOD ORDERABLES Performing Organization Address City/State/ZIP Code Phon e Number [facility] [address] [place], [place] [address] [address] [facility] LAB (ABNORMAL) Comprehensive metabolic panel (03/23/2012 8:49 AM CDT) P athologist Signature Sodium 139 133 - 144 [facility] mmol/L [facility] Potassium 4.6 3.4 - 5.3 [facility] mmol/L [facility] Chloride 102 94 - 109 [facility] mmol/L [facility] Carbon Dioxide 28 20 - 32 [facility] mmol/L [facility] Anion Gap 9 6 - 17 [facility] mmol/L [facility] Glucose 155 (H) 60 - 99 [facility] mg/dL [facility] Urea Nitrogen 20 7 - 30 [facility] mg/dL [facility] Creatinine 1.07 0.66 - [facility] 1.25 mg/dL [facility] LAB GFR Estimate 69 >60 [facility] mL/min/1.7 [facility] m2 LAB GFR Estimate If 84 >60 [facility] Black mL/min/1.7 [facility] m2 LAB Calcium 8.8 8.5 - 10.4 [facility] mg/dL [facility] LAB Bilirubin Total 0.9 0.2 - 1.3 [facility] mg/dL [facility] Albumin 4.0 3.3 - 4.9 [facility] g/dL [facility] LAB Comment: Reference range changed on 05/08. Protein Total 6.4 (L) 6.8 - 8.8 g/dL [facility] Comment: As of 08, reference range reflects plasma specimen type. Alkaline Phosphatase 70 40 - 150 U/L [facility] LAB ALT 21 0 - 70 U/L [facility] CL[facility] IC LAB AST 20 0 - 45 U/L [facility] LAB Specimen Anatomical Collection Method Collection Time Receive d Time (Source) Location / / Volume Laterality Blood specimen 03/23/2012 8:49 AM 012 8:54 (specimen) CDT AM CDT Andrey Tamez MD LAB - BLOOD ORDERABLES Performing Organization Address City/State/ZIP Code Phon e Number [facility] [address] [place] [address] [facility] LAB (ABNORMAL) Lipid panel reflex to direct LDL (03/23/2012 8:49 AM CDT) athologist Signature Cholesterol 133 0 - 200 [facility] mg/dL CLINIC LAB Comment: LDL Cholesterol is the primary guide to therapy. The NCEP recommends further evaluation of: patients with cholesterol greater than 200 mg/dL if additional risk facto rs are present, cholesterol greater than 240 mg/dL, triglycerides greater than 1 50 mg/dL, or HDL less than 40 mg/dL. Triglycerides 123 0 - 150 mg/dL [facility] LAB HDL Cholesterol 34 (L) 40 - 110 mg/dL [facility] LAB LDL Cholesterol Calculated 74 0 - 129 mg/dL [facility] LAB Comment: LDL Cholesterol is the primary guide to therapy: LDL-cholesterol goal in high risk patients is <100 mg/dL and in very high risk patients is <70 mg/dL. VLDL-Cholesterol 25 0 - 30 mg/dL [facility] LAB Cholesterol/HDL Ratio 3.9 0.0 - 5.0 [facility] LAB Specimen Anatomical Collection Method Collection Time Receive d Time (Source) Location / / Volume Laterality Blood specimen 03/23/2012 8:49 AM 012 8:54 (specimen) CDT AM CDT Andrey Tamez MD LAB - BLOOD ORDERABLES Performing Organization Address City/State/ZIP Code Phon e Number [address] [address] [facility] LAB documented in this encounter Visit Diagnoses Diagnosis Other and unspecified hyperlipidemia Type 2 diabetes, HbA1C goal < 8% (H) Type II or unspecified type diabetes vijaya litus without mention of complication, not stated as uncontrolled documented in this encounter Care Teams [employer] Umpire Relationship Specialty Start Date End Date Andrey aTmez MD PCP - General 03/26/09 documented as of this encounter
--- OUTSIDE RECORDS SUMMARY | 2022-08-10 09:40 | XMS_ITS | Encounter Summary ---
:1945 Author Organization [facility] Address [address] [place] [address] Care Team Providers Name Role Phone Andrey Tamez MD Primary Care Provider Andrey Tamez MD Unavailable Andrey Tamez MD Unavailable Reason for Visit Reason Onset Date Comments Pending Orders/need approval 03/21/2012 LAB ORDERS Encounter Details Date Type Department Care Team Description 03/21/2012 Telephone [facility] Andrey Tamez MD Pending Orders/need Clinic [place] [address] good roval (LAB ORDERS) Laboratory [address] [place] [address] [place], [place] [phone] (Wo rk) [address] [phone] Social History Tobacco Use Types Packs/Day Years Used Date Smoking Tobacco: Former Cigarettes 0.5 16 Quit : 09/06/1978 Smokeless Tobacco: Never Alcohol Use Standard Drinks/Week Comments Yes 10 (1 standard drink = 0.6 oz pure alcoh ol) A drink every 1-2 weeks. 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 documented as of this encounter Plan of Treatment Not on filedocumented as of this encounter Visit Diagnoses Diagnosis Type 2 diabetes, HbA1C goal < 8% (H) - P rimary Type II or unspecified type diabetes vijaya litus without mention of complication, not stated as uncontrolled documented in this encounter Care Teams Solderer Dipper Relationship Specialty Start Date End Date Andrey Tamez MD PCP - General 03/26/09 Andrey Tamez MD PCP - Assigned PCP 09/11/12 11/08/18 [address] [place], [place] [phone] Andrey Tamez MD Assigned PCP 09/11/12 09/07/20 [address] [place], [place] [address] documented as of this encounter
--- OUTSIDE RECORDS SUMMARY | 2022-08-10 09:40 | XMS_ITS | Encounter Summary ---
:1945 Author Organization [place] Address [address] [place] [address] Care Team Providers Name Role Phone Andrey Tamez MD Primary Care Provider Reason for Visit Auth/Cert - Closed Specialty Diagnoses / Procedures Referred By Contact Refer red To Contact Gastroenterology Diagnoses screening colonosopy Rh Endoscopy Procedures COLONOSCOPY [address] [place] [address] Phone: Fax: Referral ID Status Reason Start Date Expiration Date Visits Requ ested Visits Authorized [id number] Closed 10/06/2011 04/03/2012 1 1 Encounter Details Date Type Department Care Team Description 10/26/2011 Hospital Encounter [facility] Endoscopy Commodore MD Rajan [address] [facility] [phone] [place] [address] [place], [place] [address] (Wo rk) Social History Tobacco Use Types Packs/Day Years Used Date Smoking Tobacco: Former Cigarettes 0.5 16 Quit : 09/06/1978 Smokeless Tobacco: Never Alcohol Use Standard Drinks/Week Comments Yes 10 (1 standard drink = 0.6 oz pure alcoh ol) A drink every 1-2 weeks. 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 encounter Last Filed Vital Signs Vital Sign Reading Time Taken Comments Blood Pressure 151/81 10/26/2011 11:00 AM ENTERER Pulse - - Temperature - - Respiratory Rate 14 10/26/2011 11:00 AM ENTERER Oxygen Saturation 91% 10/26/2011 10:40 AM ENTERER Inhaled Oxygen Concentration - - Weight 80.3 kg (177 lb) 10/26/2011 9:55 AM ENTERER Height 177.8 cm (5' 10) 10/26/2011 9:55 AM ENTERER Body Mass Index 25.4 10/26/2011 9:55 AM ENTERER documented in this encounter Medications at Time [...] 10/26/2011 10:49 AM CST See Provation note RER documented in this encounter Plan of Treatment Not on filedocumented as of this encounter Procedures Procedure Name Priority Date/Time Associated Diagnosis Comme nts COLONOSCOPY 10/26/2011 10:03 AM ENTERER screening Special Needs Referring: [facility] leliaobey r COLONOSCOPY Routine 10/26/2011 9:59 AM ENTERER Resul ts for this procedure are in the results section . documented in this encounter Results COLONOSCOPY (10/26/2011 9:59 AM ENTERER) [facility] Method Time Signature COLONOSCOPY [facility] RAD IOLOGY RESULTS Patient Name: Rodolfo [...] / / Volume Laterality 10/26/2011 9:59 AM ENTERER Andrey Tamez MD PROCEDURES Performing Organization Address City/State/ZIP Code Phon e Number RADIOLOGY RESULTS documented in this encounter Visit Diagnoses Not on filedocumented in this encounter Active and Recently Administered Medications Times are shown in ENTERER. PRN Medication Order 10/24/2011 10/25/2011 10/26/2011 fentanyl (SUBLIMAZE) injection (CANCELED) 1029 (Given - Provider: Lina Pablo, AVA) PRN, moderate to severe pain, Starting 10/26/11 at 1029, Intr a-procedure midazolam (VERSED) injection (CANCELED) 1029 (Given - Provider: Lina Pablo RN) PRN, anxiety, Starting 10/26/11 at 1029, Intra-procedure documented in this encounter Care Teams Restaurant Attendant Relationship Specialty Start Date End Date Andrey Tamez MD PCP - General 03/26/09 documented as of this encounter
--- OUTSIDE RECORDS SUMMARY | 2022-08-10 09:40 | XMS_ITS | Encounter Summary ---
:1945 Author Organization [place] Address [address] [place] [address] Care Team Providers Name Role Phone Andrey Tamez MD Primary Care Provider Reason for Visit Reason Onset Date Comments Refill Request 03/28/2012 Vytorin Encounter Details Date Type Department Care Team Description 03/28/2012 Refill [facility] Andrey Tamez MD Refill Request [facility] [place] [address] (Vytorin) [address] [place] [address] [place], [place] [phone] (Wo rk) [address] [phone] Social History Tobacco Use Types Packs/Day Years Used Date Smoking Tobacco: Former Cigarettes 0.5 16 Quit : 09/06/1978 Smokeless Tobacco: Never Alcohol Use Standard Drinks/Week Comments Yes 10 (1 standard drink = 0.6 oz pure alcoh ol) A drink every 1-2 weeks. 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 Telephone Encounter - Jade Gill MD - 03/28/2012 1:47 PM CDT Sent simvastatin to pharmacy. Let patient know we should repeat cholesterol level in 3 months. Telephone Encounter - Aye Lee - 03/28/2012 9:09 AM CDT Message from [place] requesting alternate medication for Vytorin 10/20 mg. [...] rimary documented in this encounter Care Teams Financial Representative Relationship Specialty Start Date End Date Andrey Tamez MD PCP - General 03/26/09 documented as of this encounter
--- OUTSIDE RECORDS SUMMARY | 2022-08-10 09:40 | XMS_ITS | Encounter Summary ---
:1945 Author Organization [place] Address [address] [place] [address] Care Team Providers Name Role Phone Andrey Tamez MD Primary Care Provider Reason for Visit Reason Comments Dizziness started this am Encounter Details Date Type Department Care Team Description 06/20/2011 Emergency [facility] Lexa De León MD Vertigo; [facility] Emergency Dep t [facility] CVD (cerebrovascular disease ); [address] CAD (coronary artery disease) [place] [id number] [facility] [address] [place], [place] [phone] (Wo rk) Social History Tobacco Use Types Packs/Day Years Used Date Smoking Tobacco: Former Cigarettes 0.5 16 Quit : 09/06/1978 Tobacco Cessation: Counseling Given: No Alcohol Use Standard Drinks/Week Comments Yes 10 (1 standard drink = 0.6 oz pure alcoh ol) A drink every 1-2 weeks. 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 [id number] [facility], [address] [place] [address], [place] [address]. All rights reserved. This information is not [...] Noevidence for acute intracranial pathology 3. Normal [place] MRA. 4. Stable, normal neck MRA. Per Dr. Osorio of radiology. 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 2. Diffuse cerebral volume loss and cerebral white matter changes consistent with sequela of chronic small vessel ischemic disease. No evidence for acute intracranialpathology. 3. Normal [place] MRA. 4. Stable, normal neck [...] provider's statements to me. Jim Serrano 06/20/2011 [facility] EMERGENCY DEPARTMENT Lexa De León MD 06/22/11 1401 L[address]aro Francis - 06/20/2011 10:00 AM CDT [...] i n the results section. MRA BRAIN ([place] STAT 06/20/2011 12:17 Res ults for [...] HISTORY: ??Stroke,Evaluate for aneurysm, COMPARISON: Brain MRI, [place] MRA and neck MRA 04/12/2008. TECHNIQUE: Brain: Axial diffusion-weighted with ADC map, T2-weighted with fat saturation, T1-weighted and turboFLAIR a nd coronal T1-weighted images of the brain were obtained without intra venous contrast. ??Following intravenous administration of gadolinium ( 20 mL Magnevist) , axial turboFLAIR and coronal T1-weighted image s of the brain were obtained. MRA: 3D csde-ox-gidbey MR angiography of the major arteries at the base of the brain was performed without contrast. ??2D drmt-wk-mvimxv MRA without contrast with superior and i [...] for acute intracranial patholog y. 3. Normal [place] MRA. 4. Stable, normal neck [...] HISTORY: ??Stroke,Evaluate for aneurysm, COMPARISON: Brain MRI, [place] MRA and neck MRA 04/12/2008. TECHNIQUE: Brain: Axial diffusion-weighted with ADC map, T2-weighted with fat saturation, T1-weighted and turboFLAIR a nd coronal T1-weighted images of the brain were obtained without intra venous contrast. ??Following intravenous administration of gadolinium ( 20 mL Magnevist) , axial turboFLAIR and coronal T1-weighted image s of the brain were obtained. MRA: 3D dtaw-yi-lpbqut MR angiography of the major arteries at the base of the brain was performed without contrast. ??2D ehoo-fh-lebduc MRA without contrast with superior and i [...] for acute intracranial patholog y. 3. Normal [place] MRA. 4. Stable, normal neck [...] HISTORY: ??Stroke,Evaluate for aneurysm, COMPARISON: Brain MRI, [place] MRA and neck MRA 04/12/2008. TECHNIQUE: Brain: Axial diffusion-weighted with ADC map, T2-weighted with fat saturation, T1-weighted and turboFLAIR a nd coronal T1-weighted images of the brain were obtained without intra venous contrast. ??Following intravenous administration of gadolinium ( 20 mL Magnevist) , axial turboFLAIR and coronal T1-weighted image s of the brain were obtained. MRA: 3D wtjm-vy-gsnmix MR angiography of the major arteries at the base of the brain was performed without contrast. ??2D uadj-fu-bwltxw MRA without contrast with superior and i [...] for acute intracranial patholog y. 3. Normal [place] MRA. 4. Stable, normal neck MRA. Lexa De León MD IMG MRI ORDERABLES (ABNORMAL) Glucose by meter (06/20/2011 11:25 AM CDT) P athologist Signature Glucose 171 (H) 60 - 99 [place] mg/dL [facility] Specimen Anatomical Collection Method Collection Time Receive d Time (Source) Location / / Volume Laterality 06/20/2011 11:25 06/20/2011 AM CDT 11:30 AM CDT Lexa De León MD [facility] POCT Performing Organization Address City/State/ZIP Code Phon e Number [facility] [address] [place], [place] [address] [facility] (ABNORMAL) Basic metabolic panel (06/20/2011 11:00 AM CDT) P athologist Signature Sodium 140 133 - 144 [place] mmol/L [facility] Potassium 5.3 3.4 - 5.3 [place] mmol/L [facility] Chloride 103 94 - 109 [place] mmol/L [facility] Carbon Dioxide 32 20 - 32 [place] mmol/L [facility] Anion Gap 5 (L) 6 - 17 [place] mmol/L [facility] Glucose 178 (H) 60 - 99 [place] mg/dL [facility] Urea Nitrogen 18 7 - 30 [place] mg/dL [facility] Creatinine 0.95 0.66 - [place] 1.25 mg/dL [facility] GFR Estimate 80 >60 [place] mL/min/1.[address] LAB GFR Estimate If >90 >60 [place] Black mL/min/1.[address] LAB Calcium 9.1 8.5 - 10.4 [place] mg/dL [facility] Specimen Anatomical Collection Method Collection Time Receive d Time (Source) Location / / Volume Laterality Blood specimen 06/20/2011 11:00 1 (specimen) AM CDT 11:18 AM CDT Lexa De León MD LAB - BLOOD ORDERABLES Performing Organization Address City/State/ZIP Code Phon e Number [facility] [address] [place], [place] [address] [facility] (ABNORMAL) CBC with platelets differential (06/20/2011 11:00 AM CDT) Patholo gist Method Time Signature WBC 6.7 4.0 - [place] 11.0 [facility] 10e9/L [facility] RBC Count 4.84 4.4 - 5.9 [place] 10e12/L [facility] Hemoglobin 16.0 13.3 - [place] 17.7 g/dL [facility] Hematocrit 47.2 40.0 - [place] 53.0 % [facility] MCV 98 78 - 100 [facility] MCH 33.1 (H) 26.5 - [facility] 33.0 pg [facility] MCHC 33.9 31.5 - [facility] 36.5 g/dL [facility] RDW 12.2 10.0 - [place] 15.0 % [facility] Platelet Count 182 150 - 450 [place] 10e9/L [facility] Diff Method Automated [facility] % Neutrophils 64.2 40 - 75 % [facility] % Lymphocytes 20.1 20 - 48 % [facility] % Monocytes 10.4 0 - 12 % [facility] % Eosinophils 4.7 0 - 6 % [facility] % Basophils 0.3 0 - 2 % [facility] % Immature 0.3 0 - 0.4 % [place] Granulocytes [facility] Absolute 4.3 1.6 - 8.3 [place] Neutrophil 10e9/L [facility] Absolute 1.3 0.8 - 5.3 [place] Lymphocytes [facility] Absolute 0.7 0.0 - 1.3 [place] Monocytes 10e9/L [facility] Absolute 0.3 0.0 - 0.7 [place] Eosinophils 10e9/L [facility] Absolute 0.0 0.0 - 0.2 [place] Basophils 10e9/L [facility] Abs Immature 0.0 0 - 0.03 [place] Granulocytes [address] [place] [address] LAB Specimen Anatomical Collection Method Collection Time Receive d Time (Source) Location / / Volume Laterality Blood specimen 06/20/2011 11:00 1 (specimen) AM CDT 11:18 AM CDT Lexa De León MD LAB - BLOOD ORDERABLES Performing Organization Address City/State/ZIP Code Phon e Number [facility] [address] [place], [place] [address] [facility] EKG 12-lead, tracing only (06/20/2011 9:07 AM CDT) Component Value Ref Range Test Analysis Performed Pathologis t Method Time At Signature Ventricular Rate 60 BPM RADIOLOGY RESULTS Atrial Rate 60 BPM RADIOLOGY RESULTS MT Interval 196 ms RADIOLOGY RESULTS QRS Duration 90 ms RADIOLOGY RESULTS QT 416 ms RADIOLOGY RESULTS QTc 416 ms RADIOLOGY RESULTS P [place] 44 degrees RADIOLOGY RESULTS R AXIS 17 degrees RADIOLOGY RESULTS T [place] 64 degrees RADIOLOGY RESULTS Interpretation Sinus rhythm [...] Coronary atherosclerosis of unspecified type of vessel, [place] or graft documented in this encounter Administered [...] 1245 documented in this encounter Care Teams Mold Forms Builder Relationship Specialty Start Date End Date Andrey Tamez MD PCP - General 03/26/09 documented as of this encounter
--- OUTSIDE RECORDS SUMMARY | 2022-08-10 09:40 | XMS_ITS | Encounter Summary ---
:1945 Author Organization [place] Address [address] [place] [address] Care Team Providers Name Role Phone Andrey Tamez MD Primary Care Provider Reason for Visit Reason Onset Date Comments Refill Request 06/10/2010 fax to [employer] Encounter Details Date Type Department Care Team Description 06/10/[address] [facility] Andrey Tamez MD Refill Request (fax to [facility] [place] [address] [facility] Bioscript) [address] [place] [address] [place], [place] [phone] (Wo rk) [address] [phone] Social History Tobacco Use Types Packs/Day Years Used Date Smoking Tobacco: Former Cigarettes 0.5 16 Quit : 09/06/1978 Alcohol Use Standard Drinks/Week Comments Yes 10 (1 standard drink = 0.6 oz pure alcoh ol) A drink every 1-2 weeks. 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 Confirmed this with pt and Dr Tamez. Rx printed with bid dosing and left at front distribution lead dsk for pt to p/u. Message handled by Nurse Triage with Enrique. documented in this encounter Plan of Treatment Not on filedocumented as of this encounter Visit Diagnoses Diagnosis TIA (transient ischaemic attack) - Prima ry Unspecified transient cerebral ischemia documented in this encounter Care Teams Pipe Coverer Helper Relationship Specialty Start Date End Date Andrey Tamez MD PCP - General 03/26/09 documented as of this encounter
--- OUTSIDE RECORDS SUMMARY | 2022-08-10 09:40 | XMS_ITS | Encounter Summary ---
:1945 Author Organization [place] Address [address] [place] [address] Care Team Providers Name Role Phone Andrey Tamez MD Primary Care Provider Reason for Visit Reason Onset Date Comments Patient Inquiry 09/01/2011 wants ABX Encounter Details Date Type Department Care Team Description 09/01/[address] [facility] Andrey Tamez MD Patient Inquiry (wants Clinic [place] [address] [facility] ABX) [address] [place] [address] [place], [place] [phone] (Wo rk) [address] [phone] Social History Tobacco Use Types Packs/Day Years Used Date Smoking Tobacco: Former Cigarettes 0.5 16 Quit : 09/06/1978 Alcohol Use Standard Drinks/Week Comments Yes 10 (1 standard drink = 0.6 oz pure alcoh ol) A drink every 1-2 weeks. 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 NICAL ADVISOR Telephone Encounter - Rishabh Spencer MD - 09/01/2011 10:06 AM CST Please call and notify pt that prescription faxed to the pharmacy.Thanks! NICAL ADVISOR Telephone Encounter - WalterLaquita - 09/01/2011 9:46 [...] prefer him to schedule appt. Please advise. NICAL ADVISOR documented in this encounter Plan of Treatment Not on filedocumented as of this encounter Visit Diagnoses Diagnosis Cough with sputum - Primary Cough documented in this encounter Care Teams Director Patient Accounting Relationship Specialty Start Date End Date Andrey Tamez MD PCP - General 03/26/09 documented as of this encounter
--- OUTSIDE RECORDS SUMMARY | 2022-08-10 09:41 | XMS_ITS | Encounter Summary ---
:1945 Author Organization [place] Address [address] [place] [address] Care Team Providers Name Role Phone Andrey Tamez MD Primary Care Provider Reason for Visit Reason Onset Date Comments Results 03/26/2009 lab Encounter Details Date Type Department Care Team Description 03/26/2009 Telephone [facility] Andrey Tamez MD Results (lab) [place] [address] 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
--- OUTSIDE RECORDS SUMMARY | 2022-08-10 09:41 | XMS_ITS | Encounter Summary ---
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 Mutuality/Individual Preferences - What information [...] on filedocumented in this encounter Care Teams Healthcare Administrative Assistant Relationship Specialty Start Date End Date Andrey Tamez MD PCP - General 03/26/09 Bailey Doran MD PCP - General 09/20/00 03/25/09 [address] [facility] [address] [address] documented as of this encounter
--- OUTSIDE RECORDS SUMMARY | 2022-08-10 09:41 | XMS_ITS | Encounter Summary ---
:1945 Author Organization [place] Address [address] [place] [address] Care Team Providers Name Role Phone Andrey Tamez MD Primary Care Provider Reason for Visit Reason Onset Date Comments Refill Request 05/13/2010 plavix, vytorin, met oprolol Encounter Details Date Type Department Care Team Description 05/13/2010 Refill [facility] Andrey Tamez MD Refill Request (plavix, [facility] [place] [address] vytorin, metoprolol) [address] [place] [address] [place], [place] [phone] (Wo rk) [address] [phone] Social History Tobacco Use Types Packs/Day Years Used Date Smoking Tobacco: Former Cigarettes 0.5 16 Quit : 09/06/1978 Alcohol Use Standard Drinks/Week Comments Yes 10 (1 standard drink = 0.6 oz pure alcoh ol) Sex Assigned at Date Recorded 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
--- OUTSIDE RECORDS SUMMARY | 2022-08-10 09:41 | XMS_ITS | Encounter Summary ---
:1945 Author Organization [place] Address [facility] [place] [address] Care Team Providers Name Role Phone Andrey Tamez MD Primary Care Provider Bailey Doran MD Primary Care Provider Encounter Details Date Type Department Care Team Description 04/13/2008 Historic Results [place] [facility] , [facility] [address] [place] [address] [phone] Social History Tobacco Use Types Packs/Day Years Used Date Smoking Tobacco: Former Cigarettes 0.5 16 Quit : 09/06/1978 Alcohol Use Standard Drinks/Week Comments Yes 10 (1 standard drink = 0.6 oz pure alcoh ol) Sex Assigned at Date 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
--- OUTSIDE RECORDS SUMMARY | 2022-08-10 09:41 | XMS_ITS | Encounter Summary ---
:1945 Author Organization [place] Address [address] [place] [address] Care Team Providers Name Role Phone Andrey Tamez MD Primary Care Provider Reason for Visit Reason Onset Date Comments Refill Request 02/07/2010 plavix and vytorin Encounter Details Date Type Department Care Team Description 02/07/2010 Refill [facility] Andrey Tamez MD Refill Request (plavix [facility] [place] [address] and vytorin) [address] [place] [address] [place], [place] [phone] (Wo rk) [address] [phone] Social History Tobacco Use Types Packs/Day Years Used Date Smoking Tobacco: Former Cigarettes 0.5 16 Quit : 09/06/1978 Alcohol Use Standard Drinks/Week Comments Yes 10 (1 standard drink = 0.6 oz pure alcoh ol) Sex Assigned at Date Recorded Male 10/03/2020 10:[address]ER documented as of this encounter Miscellaneous Notes [...] appointment is needed per protocol. Also sent Help[employer] message to remind pt that he is due for o/v. Cynthia Triana RN documented in this encounter Plan of Treatment Not on filedocumented as of this encounter Visit Diagnoses Diagnosis TIA (transient ischaemic attack) Unspecified transient cerebral ischemia Other and unspecified hyperlipidemia CAD (coronary artery disease) Coronary atherosclerosis of unspecified type of vessel, [place] or graft documented in this encounter Care Teams Business Analyst Intern Relationship Specialty Start Date End Date Andrey Tamez MD PCP - General 03/26/09 documented as of this encounter
--- OUTSIDE RECORDS SUMMARY | 2022-08-10 09:41 | XMS_ITS | Encounter Summary ---
:1945 Author Organization [place] Address [address] [place] [address] Care Team Providers Name Role Phone Andrey Tamez MD Primary Care Provider Reason for Visit Reason Comments Physical Encounter Details Date Type Department Care Team Description 06/10/2010 Office Visit [facility] Andrey Tamez MD Routine general medical examination at a health care facility (Primary Dx); Clinic [place] [address] Other and unspecified hyperl ipidemia; [address] CAD (coronary artery disease); [place], [place] TIA (transient ischaemic att ack); [address] [address] DIABETES UNCOMPL ADULT-TYPE II; [place], [place] [phone] (Wo rk) Erectile dysfunction [id number] [phone] Social History Tobacco Use Types Packs/Day Years Used Date Smoking Tobacco: Former Cigarettes 0.5 16 Quit : 09/06/1978 Alcohol Use Standard Drinks/Week Comments Yes 10 (1 standard drink = 0.6 oz pure alcoh ol) A drink every 1-2 weeks. 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 Please set up a routine appointment to [...] older every five years (when and where): [place] PSA (NG/ML) Date Value Low High Status 10/28/2000 1.5 0.0 4.0 Final PSA (ug/L) Date Value Low High Status 03/13/2009 1.66 0 4 Final PSA recommended yearly if pt is over 50 Immunization Status Reviewed: up to date and documented If studies done outside of [facility], have pt sign SARAH. Pend orders for studies not done. GAURAV Mg documented in this encounter Plan of Treatment Not on filedocumented as of this encounter Procedures Procedure Name Priority Date/Time Associated Diagnosis Comme nts HC CHEST TWO VIEWS, Routine 06/10/2010 10:01 Routine general R esults for this FRONT/LAT AM CDT medical examination at [facility] are in a health care [...] this PLATELETS AM CDT medical examination at [facility] are in a health care fa cility the results DIABETES UNCOMPL section. ADULT-TYPE II Other and unspecified hyperlipidemia HCL PROSTATE SPEC Routine 06/10/2010 9:34 Routine general Resu lts for this ANTIGEN,SCREEN AM CDT medical examination at [facility] are in a health care fa cility the results DIABETES UNCOMPL section. ADULT-TYPE II HCL COMPREHENSIVE Routine 06/10/2010 9:34 Routine general Resu lts for this METABOLIC PANEL AM CDT medical examination at [facility] are in a health care fa cility the results DIABETES UNCOMPL section. ADULT-TYPE II Other and unspecified hyperlipidemia HCL TSH W/FREE T4 Routine 06/10/2010 9:34 Routine general Resu lts for this REFLEX AM CDT medical examination at [facility] are in a health care fa cility the results DIABETES UNCOMPL section. ADULT-TYPE II Other and unspecified hyperlipidemia HCL GLYCATED Routine 06/10/2010 9:34 DIABETES UNCOMPL Results for this HEMOGLOBIN AM CDT ADULT-TYPE II procedure are in Routine general the results [facility] Other [...] Hemoglobin A1C 8.0 (H) 4.3 - 6.0 [facility] Specimen Anatomical Collection Method Collection Time Receive d Time (Source) Location / / Volume Laterality 06/10/2010 9:34 AM 0 9:39 CDT AM CDT Andrey Tamez MD LABORATORY Performing Organization Address City/State/ZIP Code Phon e Number [facility] [address] [place], [place] [address] [facility] (ABNORMAL) LIPID PANEL, REFLEX TO DIRECT LDL (06/10/2010 9:34 AM CDT) athologist Signature Cholesterol 134 0 - 200 [place] mg/dL [facility]IN[facility] Comment: LDL Cholesterol is the primary guide to therapy. The NCEP recommends further evaluation of: patients with cholesterol <200 mg/dL if additional risk factors are present, cholesterol >240 mg/dL, triglycerides >150 mg/dL, or HDL <40 mg/dL. Triglycerides 112 0 - 150 mg/dL [place] [facility] HDL Cholesterol 37 (L) 40 - 110 mg/dL [facility] LDL Cholesterol Calculated 75 0 - 129 mg/dL [facility] Comment: LDL Cholesterol is the primary guide to therapy: LDL-cholesterol goal in high risk patients is <100 mg/dL and in very high risk patients is <70 mg/dL. VLDL-Cholesterol 22 0 - 30 mg/dL [facility] Cholesterol/HDL Ratio 3.6 0.0 - 5.0 [facility] Specimen Anatomical Collection Method Collection Time Receive d Time (Source) Location / / Volume Laterality 06/10/2010 9:34 AM 0 9:39 CDT AM CDT Andrey Tamez MD LABORATORY Performing Organization Address City/[facility]/ZIP Code Phon e Number [facility] [address] [place] [address] [facility] TSH W/FREE T4 REFLEX (06/10/2010 9:34 AM CDT) athologist Signature TSH 0.55 0.4 - 5.0 [facility] mU/L [facility] Specimen Anatomical Collection Method Collection Time Receive d Time (Source) Location / / Volume Laterality 06/10/2010 9:34 AM 0 9:39 CDT AM CDT Andrey Tamez MD LABORATORY Performing Organization Address City/State/ZIP Code Phon e Number [facility] [address] [place] [address] [facility] CBC WITH PLATELETS (06/10/2010 9:34 AM CDT) athologist Signature WBC 6.5 4.0 - 11.0 [place] 10e9/L [facility] RBC Count 4.78 4.4 - 5.9 [place] 10e12/L [facility] Hemoglobin 15.7 13.3 - [facility] 17.7 g/dL [facility] Hematocrit 47.0 40.0 - [facility] 53.0 % [facility] MCV 98 78 - 100 [place] fl [facility] MCH 32.8 26.5 - [facility] 33.0 pg [facility] MCHC 33.4 31.5 - [facility] 36.5 g/dL [facility] RDW 12.0 10.0 - [facility] 15.0 % [facility] Platelet Count 193 150 - 450 [place] 10e9/L [facility] Specimen Anatomical Collection Method Collection Time Receive d Time (Source) Location / / Volume Laterality 06/10/2010 9:34 AM 0 9:39 CDT AM CDT Andrey Tamez MD LABORATORY Performing Organization Address City/State/ZIP Code Phon e Number [facility] [address] [place], [place] [address] [facility] PROSTATE SPEC ANTIGEN,SCREEN (06/10/2010 9:34 AM CDT) athologist Signature PSA 1.96 0 - 4 ug/L [facility] Specimen Anatomical Collection Method Collection Time Receive d Time (Source) Location / / Volume Laterality 06/10/2010 9:34 AM 0 9:39 CDT AM CDT Andrey Tmaez MD LABORATORY Performing Organization Address City/[facility]/ZIP Code Phon e Number [facility] [address] [place] [address] [facility] (ABNORMAL) A.M.A. COMPREHENSIVE MET.PANEL (06/10/2010 9:34 AM CDT) athologist Signature Sodium 140 133 - 144 [place] mmol/L [facility] Potassium 4.3 3.4 - 5.3 [place] mmol/L [facility] Chloride 100 94 - 109 [place] mmol/L [facility] Carbon Dioxide 26 20 - 32 [place] mmol/L [facility] Anion Gap 14 6 - 17 [place] mmol/L [facility] Glucose 165 (H) 60 - 99 [place] mg/dL [facility] Urea Nitrogen 18 7 - 30 [place] mg/dL [facility] Creatinine 1.12 0.66 - [facility] 1.25 mg/dL [facility] Comment: New IDMS-traceable calibration beginning 01/05/08 GFR Estimate 66 >60 mL/min/1.7m2 [place] [facility] GFR Estimate If Black 80 >60 mL/min/1.7m2 [facility] Calcium 8.9 8.5 - 10.4 mg/dL [facility] Bilirubin Total 0.8 0.2 - 1.3 mg/dL [facility] Albumin 4.1 3.3 - 4.9 g/dL [facility] Comment: Reference range changed on 05/08. Protein Total 6.7 (L) 6.8 - 8.8 g/dL [facility] Comment: As of 08, reference range reflects plasma specimen type. Alkaline Phosphatase 81 40 - 150 U/L [facility] ALT 29 0 - 70 U/L [facility] AST 24 0 - 55 U/L [facility] Specimen Anatomical Collection Method Collection Time Receive d Time (Source) Location / / Volume Laterality 06/10/2010 9:34 AM 0 9:39 CDT AM CDT Andrey Tamez MD LABORATORY Performing Organization Address City/State/ZIP Code Phon e Number [facility] [address] [place] [address] [facility] ELECTROCARDIOGRAM, COMP W/READ (06/10/2010) Narrative This result has an attachment that is no t available. Andrey Tamez MD EKG TECHNICAL documented in this encounter Visit Diagnoses Diagnosis Routine general medical examination at a health care facility - Primary Other and unspecified hyperlipidemia CAD (coronary artery disease) Coronary atherosclerosis of unspecified type of vessel, [place] or graft TIA (transient ischaemic attack) Unspecified transient cerebral ischemia DIABETES UNCOMPL ADULT-TYPE II Type II or unspecified type diabetes vijaya litus without mention of complication, not stated as uncontrolled Erectile dysfunction Impotence of organic origin documented in this encounter Care Teams Insulation Sprayer Relationship Specialty Start Date End Date Andrey Tamez MD PCP - General 03/26/09 documented as of this encounter
--- OUTSIDE RECORDS SUMMARY | 2022-08-10 09:41 | XMS_ITS | Encounter Summary ---
:1945 Author Organization [place] Address [address] [place] [address] Care Team Providers Name Role Phone Andrey Tamez MD Primary Care Provider Bailey Doran MD Primary Care Provider Encounter Details Date Type Department Care Team Description 04/12/2008 Historic Results INTERFACED REPORT Korina Lipscomb MD EMERGENCY PHYSIC [place] [phone] (Wo rk) Social History Tobacco Use Types Packs/Day Years Used Date Smoking Tobacco: Former Cigarettes 0.5 16 Quit : 09/06/1978 Alcohol Use Standard Drinks/Week Comments Yes 10 (1 standard drink = 0.6 oz pure alcoh ol) Sex Assigned at Date Recorded 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 documented as of this encounter Plan [...] RESULTS Atrial Rate 80 BPM RADIOLOGY RESULTS GA Interval 172 ms RADIOLOGY RESULTS QRS Duration 84 ms RADIOLOGY RESULTS QT 362 ms RADIOLOGY RESULTS QTc 417 ms RADIOLOGY RESULTS P Napavine 46 degrees RADIOLOGY RESULTS R AXIS 19 degrees RADIOLOGY RESULTS T Napavine 38 degrees RADIOLOGY RESULTS Interpretation Sinus rhythm [...] on filedocumented in this encounter Care Teams Cooker Meal Relationship Specialty Start Date End Date Andrey Tamez MD PCP - General 03/26/09 Bailey Doran MD PCP - General 09/20/00 03/25/[address], [address] [place] [address] documented as of this encounter
--- OUTSIDE RECORDS SUMMARY | 2022-08-10 09:41 | XMS_ITS | Encounter Summary ---
:1945 Author Organization [place] Address [address] [place] [address] Care Team Providers Name Role Phone Bailey Doran MD Primary Care Provider Encounter Details Date Type Department Care Team Description 04/12/2008 Discharge Summary [facility] Lizeth Rogers (Sales And Merchandising Associate) 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 as of this encounter Progress Notes Interface, Sales And Merchandising Associate - 04/14/2008 3:15 PM CDT FINAL PRIMARY [...] MD MT: gaetano Name: RODOLFO HARTLEY Account: [id number] : 1945 Admit Date: Discharge Date: 04/13/2008 Document: [id number] cc: Lior Thomas MD [facility] documented in this encounter Plan of Treatment Not on filedocumented as of this encounter Visit Diagnoses Not on filedocumented in this encounter Care Teams Senior Chemist Relationship Specialty Start Date End Date Bailey Doran MD PCP - General 09/20/00 03/25/09 [address] , [facility] [address] [place] [address] documented as of this encounter
--- OUTSIDE RECORDS SUMMARY | 2022-08-10 09:41 | XMS_ITS | Encounter Summary ---
:1945 Author Organization [place] Address [address] [place] [address] Care Team Providers Name Role Phone Bailey Doran MD Primary Care Provider Encounter Details Date Type Department Care Team Description 04/13/2008 Consultation [facility] Nino Thomas MD [facility] NEUROLOGY Results [address] [place] [address] (Wo rk) Social History Tobacco Use Types Packs/Day Years Used Date Smoking Tobacco: Former Cigarettes 0.5 16 Quit : 09/06/1978 Alcohol Use Standard Drinks/Week Comments Yes 10 (1 standard drink = 0.6 oz pure alcoh ol) Sex Assigned at Date Recorded 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 He works at [employer]. ALLERGIES: He is not allergic to any [...] position and vibration. Coordination is intact to [id number]. LABORATORY: His evaluation in the hospital demonstrated [...] nancy Name: RODOLFO HARTLEY MRN: -30 Account: [id number] : 1945 Consult Date: 04/13/2008 Document: [id number] cc: [facility] documented in this encounter Plan of Treatment Not on filedocumented as of this encounter Visit Diagnoses Not on filedocumented in this encounter Care Teams Medical Billing Clerk Relationship Specialty Start Date End Date Bailey Doran MD PCP - General 09/20/00 03/25/[address], [address] [place] [address] documented as of this encounter
--- OUTSIDE RECORDS SUMMARY | 2022-08-10 09:41 | XMS_ITS | Encounter Summary ---
:1945 Author Organization [place] Address [address] [place] [address]. [place] [address] Care Team Providers Name Role Phone Andrey Tamez MD Primary Care Provider Andrey Tamez MD Unavailable Andrey Tamez MD Unavailable Encounter Details Date Type Department Care Team Description 10/09/2009 Office Visit-[facility] Katy Trevizo APRN Clinic [place] [address] [address] [place] [address] [place], [place] [address] (Wo rk) Social History Tobacco Use Types Packs/Day Years Used Date Smoking Tobacco: Former Cigarettes 0.5 16 Quit : 09/06/1978 Alcohol Use Standard Drinks/Week Comments Yes 10 (1 standard drink = 0.6 oz pure alcoh ol) Sex Assigned at Date Recorded 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 [...] delightful 54-year-old male who presents to the [facility] today for a followup visit. [...] PAST HISTORY Past Medical Illnesses: hyperlipidemia, diabetes ykemment-hbr-zomdfpa dependent, hypertension, CVA without residual deficits Past [...] Seat Belt Use - always; Occupation - [employer]; Residence - lives with ; Place of - [place]; Hours Worked - 40 hours per week; [...] on filedocumented in this encounter Care Teams Research Nutritionist Relationship Specialty Start Date End Date Andrey Tamez MD PCP - General 03/26/09 Andrey Tamez MD PCP - Assigned PCP 09/11/12 11/08/18 [address] [place] [id number] Andrey Tamez MD Assigned PCP 09/11/12 09/07/20 [address] [place] [phone] documented as of this encounter
--- OUTSIDE RECORDS SUMMARY | 2022-08-10 09:41 | XMS_ITS | Encounter Summary ---
:1945 Author Organization [place] Address [address] [place] [address] Care Team Providers Name Role Phone Andrey Tamez MD Primary Care Provider Reason for Referral Referral not Required - Closed Specialty Diagnoses / Procedures Referred By Contact Refer red To Contact Diagnoses Screening exam for skin cancer Andrey Tamez MD UNKNOWN- [address] [facility] [address] [place] [address] Referral ID Status Reason Start Date Expiration Date Visits Requ ested Visits Authorized [id number] Closed 10/09/2009 09/05/2011 1 1 DDING FLOOR EQUIPMENT OPERATOR Reason for Visit Reason Onset Date Comments Referral 10/09/2009 dermatology Encounter Details Date Type Department Care Team Description 10/09/2009 Telephone [facility] [place] [facility] Andrey Tamez MD Referral (dermatology) Clinic [place] [address] [facility] [address] [place] [address] [place], [place] [phone] (Wo rk) [address] [phone] Social History Tobacco Use Types Packs/Day Years Used Date Smoking Tobacco: Former Cigarettes 0.5 16 Quit : 09/06/1978 Alcohol Use Standard Drinks/Week Comments Yes 10 (1 standard drink = 0.6 oz pure alcoh ol) Sex Assigned at Date Recorded 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 Referral placed, and copy given to pt. DDING FLOOR EQUIPMENT OPERATOR documented in this encounter Plan of Treatment Not on filedocumented as of this encounter Visit Diagnoses Diagnosis Screening exam for skin cancer - Primary Screening for malignant neoplasm of the skin documented in this encounter Care Teams Non Categorical Preschool Teacher Relationship Specialty Start Date End Date Andrey Tamez MD PCP - General 03/26/09 documented as of this encounter
--- OUTSIDE RECORDS SUMMARY | 2022-08-10 09:41 | XMS_ITS | Encounter Summary ---
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 documented as of this encounter Progress Notes Interface, Administrative Specialist - 11/23/2010 6:13 PM CDT Discharge Summary - Reason for Discharge Discharge from facility, home - Progress toward Goals not met achieving short term goals/senior care goals - Barriers to achieving Discharge on same date as initial evaluation goals - Continued Therapy Yes Recommended - Rationale/ see evaluation and recommendations for discharge Recommendations Signatures Darline Dinh (OTR/L)[Signed 15:59] Authored: Discharge Summary documented in this encounter Plan of Treatment Not on filedocumented as of this encounter Visit Diagnoses Not on filedocumented in this encounter Care Teams Stroke Belt Sander Operator Relationship Specialty Start Date End Date Andrey Tamez MD PCP - General 03/26/09 Bailey Doran MD PCP - General 09/20/00 03/25/09 [address] , [facility] [address] [place] [address] documented as of this encounter
--- OUTSIDE RECORDS SUMMARY | 2022-08-10 09:41 | XMS_ITS | Encounter Summary ---
:1945 Author Organization [place] Address [address] [place] [address] Care Team Providers Name Role Phone Bailey Doran MD Primary Care Provider Reason for Visit Reason Comments Establish Care Encounter Details Date Type Department Care Team Description 03/13/2009 Office Visit [facility] Andrey Tamez MD TIA (Transient Ischaemic Attack); Clinic [place] [address] CAD (Coronary Artery Disease ); [address] Other and Unspecified Hyperlipidemia; [place], [place] DIABETES UNCOMPL ADULT-TYPE II; [address] [address] Paresthesias, [place], [place] [phone] (Wo rk) [address] [phone] Social History Tobacco Use Types Packs/Day Years Used Date Smoking Tobacco: Former Cigarettes 0.5 16 Quit : 09/06/1978 Alcohol Use Standard Drinks/Week Comments Yes 10 (1 standard drink = 0.6 oz pure alcoh ol) Sex Assigned at Date Recorded 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 The patient had an MA about four years ago, treated with stenting. [...] WBC 6.2 4.0 - 11.0 [facility] 10e9/L [facility] RBC Count 4.75 4.4 - 5.9 [facility] 10e12/L [facility] Hemoglobin 15.7 13.3 - [facility] 17.7 g/dL [facility] Hematocrit 46.9 40.0 - [facility] 53.0 % [facility] MCV 99 78 - 100 [facility] fl [facility] MCH 33.1 (H) 26.5 - [facility] 33.0 pg [facility] MCHC 33.5 31.5 - [facility] 36.5 g/dL [facility] RDW 12.1 10.0 - [facility] 15.0 % [facility] Platelet Count 165 150 - 450 [facility] 10e9/L [facility] Specimen Anatomical Collection Method Collection Time Receive d Time (Source) Location / / Volume Laterality 03/13/2009 11:20 03/13/2009 AM CDT 11:25 AM CDT Andrey Tamez MD LABORATORY Performing Organization Address City/State/ZIP Code Phon e Number [facility] [address] [place] [address] [address] [facility] PROSTATE SPEC ANTIGEN,SCREEN (03/13/2009 11:10 AM CDT) athologist Signature PSA 1.66 0 - 4 ug/L [facility] Specimen Anatomical Collection Method Collection Time Receive d Time (Source) Location / / Volume Laterality 03/13/2009 11:10 03/13/2009 AM CDT 11:15 AM CDT Andrey Tamez MD LABORATORY Performing Organization Address City/State/ZIP Code Phon e Number [facility] [address] [place] [address] [facility] FOLATE, SERUM (03/13/2009 11:06 AM CDT) P athologist Signature Folate 17.3 >3.3 ng/mL [facility] Comment: Interp: >5.4 ng/mL = Normal Specimen Anatomical Collection Method Collection Time Receive d Time (Source) Location / / Volume Laterality 03/13/2009 11:06 03/13/2009 AM CDT 11:11 AM CDT Andrey Tamez MD LABORATORY Performing Organization Address City/State/ZIP Code Phon e Number [facility] [address] [place] [address] [facility] VITAMIN B12, SERUM (03/13/2009 11:06 AM CDT) athologist Signature Vitamin B12 461 >210 pg/mL [facility] Comment: Interp: [phone] = Normal Specimen Anatomical Collection Method Collection Time Receive d Time (Source) Location / / Volume Laterality 03/13/2009 11:06 03/13/2009 AM CDT 11:11 AM CDT Andrey Tamez MD LABORATORY Performing Organization Address City/State/ZIP Code Phon e Number [facility] [address] [place] [address] [facility] TSH W/FREE T4 REFLEX (03/13/2009 11:06 AM CDT) P athologist Signature TSH 0.93 0.4 - 5.0 [facility] Specimen Anatomical Collection Method Collection Time Receive d Time (Source) Location / / Volume Laterality 03/13/2009 11:06 03/13/2009 AM CDT 11:11 AM CDT Andrey Tamez MD LABORATORY Performing Organization Address City/State/ZIP Code Phon e Number [facility] [address] [place] [address] [facility] AST (03/13/2009 11:06 AM CDT) P athologist Signature AST 23 0 - 55 U/L [facility] Specimen Anatomical Collection Method Collection Time Receive d Time (Source) Location / / Volume Laterality 03/13/2009 11:06 03/13/2009 AM CDT 11:11 AM CDT Andrey Tamez MD LABORATORY Performing Organization Address City/State/ZIP Code Phon e Number [facility] [address] [place] [address] [facility] (ABNORMAL) HEMOGLOBIN A1C (03/13/2009 11:06 AM CDT) P athologist Signature Hemoglobin A1C 7.5 (H) 4.3 - 6.0 [facility] Specimen Anatomical Collection Method Collection Time Receive d Time (Source) Location / / Volume Laterality 03/13/2009 11:06 03/13/2009 AM CDT 11:11 AM CDT Andrey Tamez MD LABORATORY Performing Organization Address City/State/ZIP Code Phon e Number [facility] [address] [place], [place] [address] [address] [facility] ALANINE AMINO (ALT) (SGPT) (03/13/2009 11:06 AM CDT) athologist Signature ALT 24 0 - 70 U/L [facility] Specimen Anatomical Collection Method Collection Time Receive d Time (Source) Location / / Volume Laterality 03/13/2009 11:06 03/13/2009 AM CDT 11:11 AM CDT Andrey Tamez MD LABORATORY Performing Organization Address City/[facility] Phon e Number [address] [address] [phone] [facility] (ABNORMAL) A.M.A. LIPID PANEL (03/13/2009 11:06 AM CDT) athologist Signature Cholesterol 145 0 - 200 [facility] mg/dL CLINIC LAB Comment: LDL Cholesterol is the primary guide to therapy: LDL-cholesterol goal in high risk patients is <100 mg/dL and in very high risk patients is <70 mg/dL. The NCEP recommends further evaluation of: patients with cholesterol <200 mg/dL if additional risk factors are present, cholesterol >240 mg/dL, triglycerides >150 mg/dL, or HDL <40 mg/dL. Triglycerides 146 0 - 150 mg/dL [facility] HDL Cholesterol 39 (L) 40 - 110 mg/dL [facility] LDL Cholesterol Calculated 77 0 - 129 mg/dL [facility] Comment: LDL Cholesterol is the primary guide to therapy: LDL-cholesterol goal in high risk patients is <100 mg/dL and in very high risk patients is <70 mg/dL. VLDL-Cholesterol 29 0 - 30 mg/dL [facility] Cholesterol/HDL Ratio 3.8 0.0 - 5.0 [facility] Specimen Anatomical Collection Method Collection Time Receive d Time (Source) Location / / Volume Laterality 03/13/2009 11:06 03/13/2009 AM CDT 11:11 AM CDT Andrey Tamez MD LABORATORY Performing Organization Address City/[facility]/ZIP Code Phon e Number [address] [address] [facility] (ABNORMAL) A.M.A. BASIC METABOLIC PANEL (03/13/2009 11:06 AM CDT) P athologist Signature Sodium 139 133 - 144 [facility] mmol/L [facility] Potassium 4.1 3.4 - 5.3 [facility] mmol/L [facility] Chloride 101 94 - 109 [facility] mmol/L [facility] Carbon Dioxide 27 20 - 32 [facility] mmol/L [facility] Anion Gap 11 6 - 17 [facility] mmol/L [facility] Glucose 129 (H) 60 - 99 [facility] mg/dL [facility] Urea Nitrogen 13 7 - 30 [facility] mg/dL [facility] Creatinine 0.96 0.66 - RE[facility] 1.25 mg/dL [facility] Comment: New IDMS-traceable calibration beginning 01/05/08 GFR Estimate 79 >60 mL/min/1.7m2 REA E AGAN [facility] GFR Estimate If Black >90 >60 mL/min/1.7m2 F [facility] Calcium 8.8 8.5 - 10.4 mg/dL [facility] Specimen Anatomical Collection Method Collection Time Receive d Time (Source) Location / / Volume Laterality 03/13/2009 11:06 03/13/2009 AM CDT 11:11 AM CDT Andrey Tamez MD LABORATORY Performing Organization Address City/State/ZIP Code Phon e Number [facility] [address] [place] [address] [phone] [facility] documented in this encounter Visit Diagnoses Diagnosis TIA (transient ischaemic attack) Unspecified transient cerebral ischemia CAD (coronary artery disease) Coronary atherosclerosis of unspecified type of vessel, lummi or graft Other and unspecified hyperlipidemia DIABETES UNCOMPL ADULT-TYPE II Type II or unspecified type diabetes vijaya litus without mention of complication, not stated as uncontrolled Paresthesias, distal Disturbance of skin sensation documented in this encounter Care Teams Healthcare Science Specialist Relationship Specialty Start Date End Date Bailey Doran MD PCP - General 09/20/00 03/25/[address] [place] [address] documented as of this encounter
--- OUTSIDE RECORDS SUMMARY | 2022-08-10 09:41 | XMS_ITS | Encounter Summary ---
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 Pt [...] Functioning , Higher Level ADLs, Prognosis/Impression Interface, Marketing Finance Specialist - 11/23/2010 6:17 PM CDT General [...] Functional Performance, Sensation, Muscle Tone, Prognosis/Impression Interface, Marketing Finance Specialist - 11/23/2010 6:17 PM CDT PHYSICAL [...] 4 Retrieve Object from Floor Instructions: supervisor bindery the shoe which is placed in front [...] degrees Instructions: Turn around in a full seminole. Pause for one minute, then turn a full seminole in the other direction. 4-Safe in less [...] Author: Pito Torres (PT) [Signed 11:08] Interface, Marketing Finance Specialist - 11/23/2010 6:17 PM CDT Patient Status - Diagnosis/Procedure regular - Physical status Stable (s/s of potential complications absent or manageable) - Psychosocial status Stable Discharge Planning - Discharge From: [facility] - Patient Care Unit: station 55 - PCU - Discharge To: Home/Alternative home - Phone number after [phone] discharge: - Method of discharge: Wheel Chair [...] Dr. Thomas call: - Phone number of [facility] [phone] patient should call: - Is patient going home No with IV Catheter?: Follow Up Care - Physician/clinician Dr. Thomas-call for time name: - - When to see Wednesday or Wednesday physician/clinician: - Instructions: Outpatient NELDA call [phone] to schedule Signatures PAT ERIC (AVA)[Signed 13:23] Authored: Patient Status, Discharge Planning, Discharge Information, Support Services, Special Care Needs and Instructions, Follow Up Care Interface, Marketing Finance Specialist - 11/23/2010 6:17 PM CDT Swallowing Compensations - Type of Note Initial Evaluation - Patient Profile Yes Review - Patient/Family Goals I am hungary. - Swallowing Evaluation Bedside swallow evaluation; PT admitted with slurred speech and Left facial droop. 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 PMH - CAD, Acute NE 03/2005, Diabetes, HTN, peripheral neropathy. 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 PT does [...] goals Potential - Demonstrates need for OT; BOAT DISPATCHER referral to another service - Predicted Duration [...] on filedocumented in this encounter Care Teams Fire Captain Relationship Specialty Start Date End Date Andrey Tamez MD PCP - General 03/26/09 Bailey Doran MD PCP - General 09/20/00 03/25/[address] [place] [address] documented as of this encounter
--- OUTSIDE RECORDS SUMMARY | 2022-08-10 09:41 | XMS_ITS | Encounter Summary ---
:1945 Author Organization [place] Address [address] [place] [address] Care Team Providers Name Role Phone Andrey Tamez MD Primary Care Provider Reason for Referral Specialty Diagnoses / Procedures Referred By Contact Refer red To Contact Andrey Tamez MD [address] [place] [address] Referral ID Status Reason Start Date Expiration Date Visits Requ ested Visits Authorized Encounter Details Date Type Department Care Team Description 05/01/2010 Orders Only [facility] Andrey Tamez MD ABSTRACTING RESULTS Clinic [place] [address] (Primary Dx) [phone] [place] [address] (Wo rk) [address] [phone] Social History Tobacco Use Types Packs/Day Years Used Date Smoking Tobacco: Former Cigarettes 0.5 16 Quit : 09/06/1978 Alcohol Use Standard Drinks/Week Comments Yes 10 (1 standard drink = 0.6 oz pure alcoh ol) Sex Assigned at Date Recorded 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
--- OUTSIDE RECORDS SUMMARY | 2022-08-10 09:41 | XMS_ITS | Encounter Summary ---
:1945 Author Organization [place] Address [address] [place] [address] Care Team Providers Name Role Phone Andrey Tamez MD Primary Care Provider Bailey Doran MD Primary Care Provider Andrey Tamez MD Unavailable Andrey Tamez MD Unavailable Encounter Details Date Type Department Care Team Description 04/18/2008 Historic Results [facility] Heart Unknown, [facility] ider [address] [address] Social History Tobacco Use Types Packs/Day Years Used Date Smoking Tobacco: Former Cigarettes 0.5 16 Quit : 09/06/1978 Alcohol Use Standard Drinks/Week Comments Yes 10 (1 standard drink = 0.6 oz pure alcoh ol) Sex Assigned at Date Recorded 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
--- OUTSIDE RECORDS SUMMARY | 2022-08-10 09:41 | XMS_ITS | Encounter Summary ---
:1945 Author Organization [place] Address [address] [place] [address]. [place] [address] Care Team Providers Name Role Phone Andrye Tamez MD Primary Care Provider Andrey Tamez MD Unavailable Andrey Tamez MD Unavailable Encounter Details Date Type Department Care Team Description 09/18/2009 Office Visit-[facility] Katy Trevizo APRN Clinic [place] [address] [place] [address] [place], [place] [address] (Wo rk) Social History Tobacco Use Types Packs/Day Years Used Date Smoking Tobacco: Former Cigarettes 0.5 16 Quit : 09/06/1978 Alcohol Use Standard Drinks/Week Comments Yes 10 (1 standard drink = 0.6 oz pure alcoh ol) Sex Assigned at Date Recorded 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 [id number] DATE: 09/18/2009 RODOLFO HARTLEY DATE OF : 1945 AGE: [age] years old Referring Physician: LAURA RESTREPO Referring Clinic: [facility] NE[facility]OLOGY CURRENT DIAGNOSES 1. [...] delightful 64-year-old male who presents to the [facility] today for a followup visit. [...] PAST HISTORY Past Medical Illnesses: hyperlipidemia, diabetes [id number] dependent, hypertension, CVA without residual deficits Past [...] Seat Belt Use - always; Occupation - [employer]; Residence - lives with ; Place of - [place]; Hours Worked - 40 hours per week; [...] on filedocumented in this encounter Care Teams Bull Driver Relationship Specialty Start Date End Date Andrey Tamez MD PCP - General 03/26/09 Andrey Tamez MD PCP - Assigned PCP 09/11/12 11/08/[address] [place] [address] Andrey Tamez MD Assigned PCP 09/11/12 09/07/[address] [place] [address] documented as of this encounter
--- OUTSIDE RECORDS SUMMARY | 2022-08-10 09:41 | XMS_ITS | Encounter Summary ---
:1945 Author Organization [place] Address [address] [place] [address] Care Team Providers Name Role Phone Bailey Doran MD Primary Care Provider Encounter Details Date Type Department Care Team Description 04/18/2008 Results Only Ankit Thomas MD [facility] [address] [place] [address] (Wo rk) Social History Tobacco Use Types Packs/Day Years Used Date Smoking Tobacco: Former Cigarettes 0.5 16 Quit : 09/06/1978 Alcohol Use Standard Drinks/Week Comments Yes 10 (1 standard drink = 0.6 oz pure alcoh ol) Sex Assigned at Date Recorded 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 documented in this encounter Results ECHO HEART,TRANSESOPHAGEAL,COMPLETE (04/18/2008 1:45 PM CDT) [facility] Method Time Signature [facility] Interpretation [...] filedocumented in this encounter Care Teams Medical Secretary Receptionist Relationship Specialty Start Date End Date Bailey Doran MD PCP - General 09/20/00 03/25/[address] [place] [address] documented as of this encounter
--- OUTSIDE RECORDS SUMMARY | 2022-08-10 09:41 | XMS_ITS | Encounter Summary ---
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 documented in this encounter Results TRIGLYCERIDES [61410.000] (08/09/2008) P athologist Signature Triglycerides 152@ mg/dL [facility] Provider Abstract LABORATORY Performing Organization Address City/State/ZIP Code Phon e Number [facility] HDL CHOLESTEROL [75988.000] (08/09/2008) P athologist Signature HDL Cholesterol 47@ mg/dL [facility] Provider [facility] Performing Organization Address City/State/ZIP Code Phon e Number [facility] LDL-CHOLESTEROL [92407.001] (08/09/2008) P athologist Signature LDL Cholesterol 76@ mg/dL [facility] Calculated Provider [facility] Performing Organization Address City/State/ZIP Code Phon e Number [facility] CHOLESTEROL [04959.000] (08/09/2008) P athologist Signature Cholesterol 153@ 115 - 199 [facility] mg/dL Provider Abstract LAB[facility]ATORY Performing Organization Address City/State/ZIP Code Phon e Number [facility] ALT [81439.000] (08/09/2008) P athologist Signature ALT 24@ U/L [facility] Provider Abstract LABORATORY Performing Organization Address City/State/ZIP Code Phon e Number [facility] documented in this encounter Visit Diagnoses Diagnosis DIAGNOSIS NOT YET DEFINED documented in this encounter Care Teams Retail Account Executive Relationship Specialty Start Date End Date Bailey Doran MD PCP - General 09/20/00 03/25/[address] [place] [address] documented as of this encounter
--- OUTSIDE RECORDS SUMMARY | 2022-08-10 09:41 | XMS_ITS | Encounter Summary ---
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
--- OUTSIDE RECORDS SUMMARY | 2022-08-10 09:41 | XMS_ITS | Encounter Summary ---
:1945 Author Organization [place] Address [address] [place] [address] Care Team Providers Name Role Phone Andrey Tamez MD Primary Care Provider Bailey Doran MD Primary Care Provider Andrey Tamez MD Unavailable Andrey Tamez MD Unavailable Encounter Details Date Type Department Care Team Description 08/09/[address] 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 Provider Scan IMG NM ORDERABLES documented in this encounter Visit Diagnoses Not on filedocumented in this encounter Care Teams Psychology Physician Relationship Specialty Start Date End Date Andrey Tamez MD PCP - General 03/26/09 Bailey Doran MD PCP - General 09/20/00 03/25/[address] [place], [place] [id number] Andrey Tamez MD PCP - Assigned PCP 09/11/12 11/08/18 [address] [place], [place] [phone] Andrey Tamez MD Assigned PCP 09/11/12 09/07/20 [address] [place], [place] [id number] documented as of this encounter
--- OUTSIDE RECORDS SUMMARY | 2022-08-10 09:41 | XMS_ITS | Encounter Summary ---
:1945 Author Organization [place] Address [address] [place] [address] Care Team Providers Name Role Phone Bailey Doran MD Primary Care Provider Encounter Details Date Type Department Care Team Description 04/12/2008 Emergency room [facility] [place] [facility] Se zaid Lipscomb MD [facility] EM[facility]GENCY [facility] Results [address] [place], [place] [address] (Wo rk) Social History Tobacco Use Types Packs/Day Years Used Date Smoking Tobacco: Former Cigarettes 0.5 16 Quit : 09/06/1978 Alcohol Use Standard Drinks/Week Comments Yes 10 (1 standard drink = 0.6 oz pure alcoh ol) Sex Assigned at Date Recorded 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 Coronary artery disease, status post [place] and stent placement. 2. Hypercholesterolemia. 3. Hypertension. [...] but diminished throughout. Rapid alternating movements and jqor-pj-wrwx are within normal limits. Visual denton are [...] and examined. He was connected to the cafeteria monitor and pulse oximetry monitor. He had oxygen applied. He had an IV established, and bloods were drawn and sent. An EKG was obtained. He then went for an MRI/MRA of his head, neck and vessels which did show an acute infarct. He had a chest x-ray as well. After he returned from MRI he was given [id number] mg by mouth. PLAN: I subsequently spoke [...] EV#[id number] Name: RODOLFO HARTLEY MRN: -[id number] Account: [id number] : 1945 Visit Date: 04/12/2008 Document: [id number] cc: Tom Plasencia MD Primary Care Physician documented in this encounter Plan of Treatment Not on filedocumented as of this encounter Visit Diagnoses Not on filedocumented in this encounter Care Teams Manager Knowledge Relationship Specialty Start Date End Date Bailey Doran MD PCP - General 09/20/00 03/25/09 [address] [facility] [address] [place] [address] documented as of this encounter
--- OUTSIDE RECORDS SUMMARY | 2022-08-10 09:41 | XMS_ITS | Encounter Summary ---
:1945 Author Organization [place] Address [address] [place] [address] Care Team Providers Name Role Phone Bailey Doran MD Primary Care Provider Encounter Details Date Type Department Care Team Description 04/12/2008 Admission H&P [facility] Scott Aggarwal (Chopper Gun Operator) Hospitalists MD [place] [address] [place] [phone] Social History Tobacco Use Types Packs/Day Years Used Date Smoking Tobacco: Former Cigarettes 0.5 16 Quit : 09/06/1978 Alcohol Use Standard Drinks/Week Comments Yes 10 (1 standard drink = 0.6 oz pure alcoh ol) Sex Assigned at Date Recorded 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 CHIEF COMPLAINT: Slurred speech. HISTORY: Rodolfo Hartley is 62-year-old male with a history of coronary artery disease including acute myocardial infarction in 03/2005, status post proximal LAD stent with family history of heart disease including mother who had VA at age 50, prior history of diabetes, hypertension, hypercholesterolemia, peripheral neuropathy, who presents to [facility] after about a 30 minuteepisode of slurred speech and left facial droop. The patient works at [employer]. The patient walked over this afternoon over [...] were improving. The patient was brought to [facility] Emergency Department for further assessment. In the [...] he is . Occasional alcohol, works for [employer]. ALLERGIES: NO KNOWN DRUG ALLERGIES. MEDICATIONS: 1. [...] MD MT: ERICA Name: RODOLFO HARTLEY Account: [id number] : 1945 Admitted: [id number] Document: [id number] cc: Yazan Foreman MD, [facility] documented in this encounter Plan of Treatment Not on filedocumented as of this encounter Visit Diagnoses Not on filedocumented in this encounter Care Teams Security Professionals Relationship Specialty Start Date End Date Bailey Doran MD PCP - General 09/20/00 03/25/[address] [place] [address] documented as of this encounter
--- OUTSIDE RECORDS SUMMARY | 2022-08-10 09:41 | XMS_ITS | Encounter Summary ---
:1945 Author Organization [place] Address [facility] [place] [address] Care Team Providers Name Role Phone Andrey Tamez MD Primary Care Provider Bailey Doran MD Primary Care Provider Encounter Details Date Type Department Care Team Description 04/12/2008 Historic Results [facility] Scott Tiwari , Hospitalists [address] [place] [phone] Social History Tobacco Use Types Packs/Day Years Used Date Smoking Tobacco: Former Cigarettes 0.5 16 Quit : 09/06/1978 Alcohol Use Standard Drinks/Week Comments Yes 10 (1 standard drink = 0.6 oz pure alcoh ol) Sex Assigned at Date Recorded 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 documented as of this encounter Plan [...] UA with microscopic (04/12/2008 11:45 PM CDT) [facility] Method Time Signature Source Midstream MISYS Urine Color Urine Light Yellow MISYS Appearance Urine Clear MISYS Glucose Urine Negative NEG mg/dL MISYS Bilirubin Urine Negative NEG MISYS Ketones Urine Negative NEG mg/dL MISYS Specific [place] 1.012 1.003 - MISYS Urine 1.035 Blood [...] with platelets differential (04/12/2008 3:00 PM CDT) [facility] Method Time Signature MCV 98 78 - [...] LAB - BLOOD ORDERABLES Performing Organization Address City/[facility] Phon e Number MISYS INR (04/12/2008 3:00 PM CDT) P athologist Signature INR 1.01 0.86 - 1.14 MISYS Specimen Anatomical Collection Method Collection Time Receive d Time (Source) Location / / Volume Laterality 04/12/2008 3:00 PM 8 4:05 CDT PM CDT Baljinder Lipscomb MD LAB - BLOOD ORDERABLES Performing Organization Address [facility] Phon e Number MISYS Partial thromboplastin time (04/12/2008 3:00 PM CDT) P athologist Signature PTT 27 22 - 37 sec MISYS Specimen Anatomical Collection Method Collection Time Receive d Time (Source) Location / / Volume Laterality 04/12/2008 3:00 PM 8 4:05 CDT PM CDT Baljinder Lipscomb MD LAB - BLOOD ORDERABLES Performing Organization Address City/[facility] Phon e Number MISYS (ABNORMAL) Comprehensive [...] on filedocumented in this encounter Care Teams Jet Dyeing Machine Operator Relationship Specialty Start Date End Date Andrey Tamez MD PCP - General 03/26/09 Bailey Doran MD PCP - General 09/20/00 03/25/09 [address] [facility] [address] [place] [address] documented as of this encounter
--- OUTSIDE RECORDS SUMMARY | 2022-08-10 09:41 | XMS_ITS | Encounter Summary ---
:1945 Author Organization [place] Address [address] [place] [address] Care Team Providers Name Role Phone Andrey Tamez MD Primary Care Provider Bailey Doran MD Primary Care Provider Andrey Tamez MD Unavailable Andrey Tamez MD Unavailable Encounter Details Date Type Department Care Team Description 04/18/2008 Historic Results [facility] Heart Unknown, [facility] ider [address] [address] Social History Tobacco Use Types Packs/Day Years Used Date Smoking Tobacco: Former Cigarettes 0.5 16 Quit : 09/06/1978 Alcohol Use Standard Drinks/Week Comments Yes 10 (1 standard drink = 0.6 oz pure alcoh ol) Sex Assigned at Date Recorded 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
--- OUTSIDE RECORDS SUMMARY | 2022-08-10 09:41 | XMS_ITS | Encounter Summary ---
:1945 Author Organization [place] Address [address] [place] [address]. [place] [address] Care Team Providers Name Role Phone Shane Tamez MD Primary Care Provider Shane Tamez MD Unavailable Shane Tamez MD Unavailable Encounter Details Date Type Department Care Team Description 04/23/2010 Office Visit-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 DATE: 04/23/2010 NAEEMRODOLFO DATE OF : 1945 AGE: [age] years old Referring Physician: SHANE TAMEZ Referring Clinic: [facility] CURRENT DIAGNOSES 1. - CAD, 414.00 2. HI-S/P Anterior, 412 3. PTCA-LAD FLORI stent 03/2005 [...] of - Hypertension, benign and Followup of HI-S/P Anterior HISTORY OF PRESENT ILLNESS I had [...] PAST HISTORY Past Medical Illnesses: hyperlipidemia, diabetes beuenbqn-osb-ukejdrf dependent, hypertension, CVA without residual deficits Past [...] - lives with ; Place of - [place]; Hours Worked - 40 hours per week; [...] ORDERS 1. F/U with Katy Trevizo, MSN, CNC SPECIALIST 1 year Yazan Foreman M.D. documented in this encounter Plan of Treatment Not on filedocumented as of this encounter Visit Diagnoses Not on filedocumented in this encounter Care Teams Automotive Manager Relationship Specialty Start Date End Date Shane Tamez MD PCP - General 03/26/09 Shane Tamez MD PCP - Assigned PCP 09/11/12 11/08/18 [address] [place] [address] Shane Tamez MD Assigned PCP 09/11/12 09/07/20 [address] [place] [address] documented as of this encounter
--- OUTSIDE RECORDS SUMMARY | 2022-08-10 09:41 | XMS_ITS | Encounter Summary ---
:1945 Author Organization [place] Address [address] [place] [address]. [place] [address] Care Team Providers Name Role Phone Andrey Tamez MD Primary Care Provider Bailey Doran MD Primary Care Provider Andrey Tamez MD Unavailable Andrey Tamez MD Unavailable Encounter Details Date Type Department Care Team Description 08/15/2008 Office Visit-[facility] Yazan Foreman 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 DATE: 08/15/2008 RODOLFO HARTLEY DATE OF : 1945 AGE: [age] years old Referring Physician/Clinic: [facility] CURRENT DIAGNOSES 1. - CAD, 414.00 2. - Hyperlipidemia, 272.4 3. Cerebral Vascular Accident, 435.9 4. UT-S/P Anterior, 412 5. PTCA-LAD FLORI stent 03/2005 [...] PAST HISTORY Past Medical Illnesses: hyperlipidemia, diabetes wtczocqw-zkk-pbfckfu dependent, hypertension, CVA without residual deficits Past [...] Seat Belt Use - always; Occupation - [employer]; Residence - lives with ; Place of [...] on filedocumented in this encounter Care Teams Patient Access Relationship Specialty Start Date End Date Andrey Tamez MD PCP - General 03/26/09 Bailey Doran MD PCP - General 09/20/00 03/25/09 [address] , [address] [address] Andrey Tamez MD PCP - Assigned PCP 09/11/12 11/08/18 [address] [place] [address] Andrey Tamez MD Assigned PCP 09/11/12 09/07/20 [address] [place] [address] documented as of this encounter
--- OUTSIDE RECORDS SUMMARY | 2022-08-10 09:42 | XMS_ITS | Encounter Summary ---
:1945 Author Organization [place] Address [address] [place] [address] Care Team Providers Name Role Phone Andrey Tamez MD Primary Care Provider Bailey Doran MD Primary Care Provider Encounter Details Date Type Department Care Team Description 04/01/2005 Historic Results [facility] Madsen MD Hospitalists [address] [facility] [address] [place], [place] [address] (Wo rk) Social History Tobacco Use Types Packs/Day Years Used Date Smoking Tobacco: Former Cigarettes 0.5 16 Quit : 09/06/1978 Alcohol Use Standard Drinks/Week Comments Yes 10 (1 standard drink = 0.6 oz pure alcoh ol) Sex Assigned at Date Recorded 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
--- OUTSIDE RECORDS SUMMARY | 2022-08-10 09:42 | XMS_ITS | Encounter Summary ---
:1945 Author Organization [place] Address [address] [place] [address] Care Team Providers Name Role Phone Andrey Tamez MD Primary Care Provider Bailey Doran MD Primary Care Provider Andrey Tamez MD Unavailable Andrey Tamez MD Unavailable Encounter Details Date Type Department Care Team Description 03/26/2006 Historic Results [facility] Heart Unknown, [facility] ider [address] [address] Social History Tobacco Use Types Packs/Day Years Used Date Smoking Tobacco: Former Cigarettes 0.5 16 Quit : 09/06/1978 Alcohol Use Standard Drinks/Week Comments Yes 10 (1 standard drink = 0.6 oz pure alcoh ol) Sex Assigned at Date Recorded Male 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
--- OUTSIDE RECORDS SUMMARY | 2022-08-10 09:42 | XMS_ITS | Encounter Summary ---
:1945 Author Organization [facility] Address [address] [place] [address] Care Team Providers Name Role Phone Andrey Tamez MD Primary Care Provider Bailey Doran MD Primary Care Provider Encounter Details Date Type Department Care Team Description 03/17/2005 Historic [facility] Dedicated Truck Driver INTERFACED REPORT Jaye Barrett MD [facility] [address] [place] [address] (Wo rk) Social History Tobacco Use Types Packs/Day Years Used Date Smoking Tobacco: Former Cigarettes 0.5 16 Quit : 09/06/1978 Alcohol Use Standard Drinks/Week Comments Yes 10 (1 standard drink = 0.6 oz pure alcoh ol) Sex Assigned at Date Recorded 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 Jadiel Rivera, regarding the patient. [...] was then transferred acutely via ICLS to [facility], labor relations specialist under Dr. Jadiel Rivera, for angiography and [...] The patient was transferred via ICLS to [facility] for further evaluation in a stable cardiac condition. Critical care time spent with the patient was 40 minutes. [id number] _ JAYE ADAMS MD MT: Document: [id number] CC: JAYE ADAMS MD [place], [place] Name: MR#: RODOLFO HARTLEY [id number] EMERGENCY ROOM ENCOUNTER Page 3 of 3 LCN: ERA DSC: 03/17/2005 [place], [place] Name: MR#: RODOLFO HARTLEY [id number] : Admit Date: Account #: 1945 03/17/2005 [id number] Doctor: JAYE ADAMS MD EMERGENCY ROOM ENCOUNTER Page 1 of 3 ROUGHER documented in this encounter Plan of Treatment Not on filedocumented as of this encounter Visit Diagnoses Not on filedocumented in this encounter Care Teams Legal Activity Adjudicator Relationship Specialty Start Date End Date Andrey Tamez MD PCP - General 03/26/09 Bailey Doran MD PCP - General 09/20/00 03/25/[address] [place] [address] documented as of this encounter
--- OUTSIDE RECORDS SUMMARY | 2022-08-10 09:42 | XMS_ITS | Encounter Summary ---
:1945 Author Organization [place] Address [address] [place] [address] Care Team Providers Name Role Phone Andrey Tamez MD Primary Care Provider Bailey Doran MD Primary Care Provider Encounter Details Date Type Department Care Team Description 03/18/2005 Historic Results [facility] Everton Rivera Otis Eva Mccoy MD [address] [address] [phone] Social History Tobacco Use Types Packs/Day Years Used Date Smoking Tobacco: Former Cigarettes 0.5 16 Quit : 09/06/1978 Alcohol Use Standard Drinks/Week Comments Yes 10 (1 standard drink = 0.6 oz pure alcoh ol) Sex Assigned at Date Recorded 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
--- OUTSIDE RECORDS SUMMARY | 2022-08-10 09:42 | XMS_ITS | Encounter Summary ---
:1945 Author Organization [place] Address [address] [place] [address] Care Team Providers Name Role Phone Andrey Tamez MD Primary Care Provider Bailey Doran MD Primary Care Provider Andrey Tamez MD Unavailable Andrey Tamez MD Unavailable Encounter Details Date Type Department Care Team Description 07/06/2005 Office Visit-[facility] Heart Unknown, Yassine tay MD [address] [address] Social History Tobacco Use Types Packs/Day Years Used Date Smoking Tobacco: Former Cigarettes 0.5 16 Quit : 09/06/1978 Alcohol Use Standard Drinks/Week Comments Yes 10 (1 standard drink = 0.6 oz pure alcoh ol) Sex Assigned at Date Recorded 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 DATE: 07/06/2005 RODOLFO HARTLEY DATE OF : 1945 AGE: [age] years old Referring Physician: MERA SHARMA Referring Clinic: [facility] CURRENT DIAGNOSES 1. DC-S/P Anterior, 412 2. PTCA-LAD FLORI stent 03/2005 [...] Followup of - CAD and Followup of DC-S/P Anterior HISTORY OF PRESENT ILLNESS I had [...] on filedocumented in this encounter Care Teams Big Data Platform Architect Relationship Specialty Start Date End Date Andrey Tamez MD PCP - General 03/26/09 Bailey Doran MD PCP - General 09/20/00 03/25/[address] [place], [place] [address] Andrey Tamez MD PCP - Assigned PCP 09/11/12 11/08/18 [address] [place], [place] [address] Andrey Tamez MD Assigned PCP 09/11/12 09/07/20 [address] [place], [place] [address] documented as of this encounter
--- OUTSIDE RECORDS SUMMARY | 2022-08-10 09:42 | XMS_ITS | Encounter Summary ---
:1945 Author Organization [place] Address [address] [place] [address] Care Team Providers Name Role Phone Andrey Tamez MD Primary Care Provider Bailey Doran MD Primary Care Provider Encounter Details Date Type Department Care Team Description 04/03/2005 Historic Results [facility]-Anastacio Madsen MD Hospitalists [address] [facility] [address] [place], [place] [address] (Wo rk) Social History Tobacco Use Types Packs/Day Years Used Date Smoking Tobacco: Former Cigarettes 0.5 16 Quit : 09/06/1978 Alcohol Use Standard Drinks/Week Comments Yes 10 (1 standard drink = 0.6 oz pure alcoh ol) Sex Assigned at Date Recorded 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 100 [place] [address] documented as of this encounter
--- OUTSIDE RECORDS SUMMARY | 2022-08-10 09:42 | XMS_ITS | Encounter Summary ---
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 Bailey Doran/[facility] Indication for Procedure: ??This is a 59 year old patient wi th no previous cardiac history presenting to [facility] with chest discomfort and ST segment elevation in the anterior le ads suggesting an acute GA. He is brought emergently to [facility] for coronary evaluation and intervention. PROCEDURE: ??The [...] REPORT Procedure: ??I initially used a 6.5 Croatian sheath and a JL4 guiding catheter in anticipation of a likely intervention in the LAD . ??A [place] wire was advanced without difficulty across the [...] complications. 2. ??Reopro had been administered at [facility] and was continue d throughout this [...] Component Value Ref Test Analysis Performed At [facility] Range Method Time Signature IMAGECAST RADIOLOGY RESULT ANGIOGRAM REPORT RESULTS cc: ??Dr. Bailey Doran/[facility] Indication for Procedure: ??This is a 59 year old patient wi th no previous cardiac history presenting to [facility] with chest discomfort and ST segment elevation in the anterior le ads suggesting an acute GA. He is brought emergently to [facility] for coronary evaluation and intervention. PROCEDURE: ??The [...] REPORT Procedure: ??I initially used a 6.5 Croatian sheath and a JL4 guiding catheter in anticipation of a likely intervention in the LAD . ??A [place] wire was advanced without difficulty across the [...] complications. 2. ??Reopro had been administered at [facility] and was continue d throughout this [...] on filedocumented in this encounter Care Teams Physician Vice President Relationship Specialty Start Date End Date Bailey Doran MD PCP - General 09/20/00 03/25/09 [address] , [facility] [address] [place] [address] documented as of this encounter
--- OUTSIDE RECORDS SUMMARY | 2022-08-10 09:42 | XMS_ITS | Encounter Summary ---
:1945 Author Organization [place] Address [address] [place] [address] Care Team Providers Name Role Phone Andrey Tamez MD Primary Care Provider Bailey Doran MD Primary Care Provider Encounter Details Date Type Department Care Team Description 03/19/2005 Historic Results [facility] Ever[place] Rivera [place] Eva Mccoy MD [address] [id number] [phone] Social History Tobacco Use Types Packs/Day Years Used Date Smoking Tobacco: Former Cigarettes 0.5 16 Quit : 09/06/1978 Alcohol Use Standard Drinks/Week Comments Yes 10 (1 standard drink = 0.6 oz pure alcoh ol) Sex Assigned at Date Recorded 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
--- OUTSIDE RECORDS SUMMARY | 2022-08-10 09:42 | XMS_ITS | Encounter Summary ---
:1945 Author Organization [facility] Address [address] [place] [address] Care Team Providers Name Role Phone Andrey Tamez MD Primary Care Provider Bailey Doran MD Primary Care Provider Andrey Tamez MD Unavailable Andrey Tamez MD Unavailable Encounter Details Date Type Department Care Team Description 03/22/2006 Office Visit-[facility] Heart Unknown, Yassine tay MD [address] [address] Social History Tobacco Use Types Packs/Day Years Used Date Smoking Tobacco: Former Cigarettes 0.5 16 Quit : 09/06/1978 Alcohol Use Standard Drinks/Week Comments Yes 10 (1 standard drink = 0.6 oz pure alcoh ol) Sex Assigned at Date Recorded 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 - CAD, 414.00 2. - Hyperlipidemia, 272.4 3. IL-S/P Anterior, 412 4. - Cardiomyopathy Ischemic, 414.8 [...] which was an improvement from 35% post IL. There is a trace of mitral regurgitation, [...] Seat Belt Use - always; Occupation - [employer]; Residence - lives with ; Place of [...] has had no symptoms similar to his [place]. I would ask him to continue exercising [...] on filedocumented in this encounter Care Teams Structural Fitter Relationship Specialty Start Date End Date Andrey Tamez MD PCP - General 03/26/09 Bailey Doran MD PCP - General 09/20/00 03/25/[address], [address] [place], [place] [address] Andrey Tamez MD PCP - Assigned PCP 09/11/12 11/08/18 [address] [place], [place] [address] Andrey Tamez MD Assigned PCP 09/11/12 09/07/20 [address] [place], [place] [id number] documented as of this encounter
--- OUTSIDE RECORDS SUMMARY | 2022-08-10 09:42 | XMS_ITS | Encounter Summary ---
:1945 Author Organization [place] Address [address] [place] [address] Care Team Providers Name Role Phone Bailey Doran MD Primary Care Provider Reason for Referral - Closed Specialty Diagnoses / Procedures Referred By Contact Refer red To Contact Ophthalmology Diagnoses Type II or unspecified type diabetes mellitus without mention of complication, not stated as uncontrolled Bailey Doran MD [address], [facility] [address] [place] [address] Referral ID Status Reason Start Date Expiration Date Visits Requ ested Visits Authorized [id number] Closed 07/03/2002 09/05/2011 1 1 ICAL APPEALS AUDITOR Reason for Visit Reason Comments Refill Request Lipitor Blood Draw pt is fasting this am. Encounter Details Date Type Department Care Team Description 07/03/2002 Office Visit [facility] Bailey Doran, DIABET ES UNCOMPL ADULT-TYPE II (Primary Dx); Physicians MIXED HYPERLIPIDEMIA; [address], VACCINE FOR INFLUENZA [address] [place] [address] [phone] Social History Tobacco Use Types Packs/Day Years Used Date Smoking Tobacco: Former Cigarettes 0.5 16 Quit : 09/06/1978 Alcohol Use Standard Drinks/Week Comments Yes 10 (1 standard drink = 0.6 oz pure alcoh ol) Sex Assigned at Date Recorded Male 10/03/2020 10:26 AM 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 APPEALS AUDITOR documented as of this encounter Last Filed Vital Signs Vital Sign Reading Time Taken Comments Blood Pressure 138/86 07/03/2002 8:15 AM CLINICAL APPEALS AUDITOR Pulse - - Temperature 36.1 ??C (97 ??F) 07/03/2002 8:15 AM CLINICAL APPEALS AUDITOR Respiratory Rate 12 07/03/2002 8:15 AM CLINICAL APPEALS AUDITOR Oxygen Saturation - - Inhaled Oxygen Concentration - - Weight 84.1 kg (185 lb 8 oz) 07/03/2002 8:15 AM CLINICAL APPEALS AUDITOR Height 177.8 cm (5' 10) 07/03/2002 8:15 AM CLINICAL APPEALS AUDITOR Body Mass Index 26.62 07/03/2002 8:15 AM CLINICAL APPEALS AUDITOR documented in this encounter Progress Notes 07/03/2002 8:15 AM CLINICAL APPEALS AUDITOR SUBJECTIVE: Rodolfo Quevedo is an 57 year [...] weeks. FLU VACCINE, 3 YRS +, IM [[id number]] Orde r #: [id number] Class: Normal CONSULT TO OPHTHALMOLOGY [[id number]] Order #: [id number] Class: External referral 2) Low fat, low [...] Diabetes Uncompl Results for this HEMOGLOBIN AM CLINICAL APPEALS AUDITOR Adult-Type Ii procedure are in Mixed Hyperlipidemia the res ults section. HCL LIPID PANEL Routine 07/04/2002 5:36 Diabetes Uncompl Resul ts for this AM CLINICAL APPEALS AUDITOR Adult-Type Ii procedure are in Mixed Hyperlipidemia the res ults section. HCL AST Routine 07/04/2002 5:36 Diabetes Uncompl Results for this AM CLINICAL APPEALS AUDITOR Adult-Type Ii procedure are in Mixed Hyperlipidemia the res ults section. ZZCL AFF Routine 07/03/2002 10:52 Diabetes Uncompl Results for this MICROALBUMIN, AM CLINICAL APPEALS AUDITOR Adult-Type Ii procedure are in SEMIQUANTT Mixed Hyperlipidemia the res ults section. CL AFF GLUCOSE, Routine 07/03/2002 9:10 Diabetes Uncompl Resul ts for this FASTING AM CLINICAL APPEALS AUDITOR Adult-Type Ii procedure are in Mixed Hyperlipidemia the res ults section. HC VENOUS COLLECTION Routine 07/03/2002 8:32 Diabetes Uncompl AM CLINICAL APPEALS AUDITOR Adult-Type Ii Mixed Hyperlipidemia documented in this encounter Results CONSULT TO OPHTHALMOLOGY (01/02/2003) Narrative This result has an attachment that is no t available. Bailey Doran MD REFERRAL (ABNORMAL) HEMOGLOBIN A1C (07/04/2002 7:07 AM CLINICAL APPEALS AUDITOR) P athologist Signature Hemoglobin A1C 6.4 (H) [facility] Specimen (Source) Anatomical Location Collection Method / Collectio n Time Received Time / Laterality Volume 07/03/2002 Narrative [facility] [place] - 07/04/2002 7:07 AM CLINICAL APPEALS AUDITOR ?REFERENCE RANGE: ??NON-DIABETIC <6.0% THE [place] [employer] RECOMM ENDS THAT THE GOAL OF THERAPY SHOULD BE A HEMOGLOBIN A 1C OF <7% AND THAT PHYSICIANS SHOULD REEVALUATE THE TR EATMENT REGIMEN IN PATIENTS WITH HEMOGLOBIN A1C VALUES CONSISTENTLY >8.0%. Bailey Doran MD LABORATORY Performing Organization Address [facility] Phon e Number ADAM MICHELLE AST (07/04/2002 5:36 AM CLINICAL APPEALS AUDITOR) P athologist Signature Comments DNR [facility] AST 15 2 - 50 U/L [facility] Specimen (Source) Anatomical Location Collection Method / Collectio n Time Received Time / Laterality Volume 07/03/2002 Bailey Doran MD LABORATORY Performing Organization Address [facility] Phon e Number ADAM MICHELLE (ABNORMAL) A.M.A. LIPID PANEL (07/04/2002 5:36 AM CLINICAL APPEALS AUDITOR) [facility] gist Method Time Signature Comments DNR [facility] Triglycerides 199 (H) <150 MG/DL [facility] Cholesterol 172 <200 MG/DL [facility] Cholesterol 10 PERCENTILE [facility] Percentile HDL Cholesterol 40 >39 MG/DL [facility] LDL Cholesterol 92 <130 MG/DL [facility] Calculated Cholesterol/HDL 4.3 <5.0 [facility] Ratio Specimen (Source) Anatomical Location Collection Method / Collectio n Time Received Time / Laterality Volume 07/03/2002 Bailey Doran MD LABORATORY Performing Organization Address [facility] Phon e Number [employer] [facility] MICROALBUMIN, SEMIQUANT (07/03/2002 10:52 AM CLINICAL APPEALS AUDITOR) P athologist Signature Microalbumin 10 [facility] Narrative [facility] - 07/03/2002 10:52 AM CLINICAL APPEALS AUDITOR CRE 300mg/dl A:C <30 mg/g normal Bailey Doran MD LABORATORY Performing Organization Address City/State/ZIP Code Phon e Number [facility] (ABNORMAL) GLUCOSE, FASTING (07/03/2002 9:10 AM CLINICAL APPEALS AUDITOR) athologist Signature Glucose 132 (A) 60 - 120 [facility] mg/dL Specimen (Source) Anatomical Collection Method Collection Time Re ceived Time Location / / Volume Laterality 07/03/2002 9:10 AM CLINICAL APPEALS AUDITOR Bailey Doran MD LABORATORY Performing Organization Address City/State/ZIP Code Phon e Number [facility] documented in this encounter Visit Diagnoses Diagnosis Type II or unspecified type diabetes vijaya litus without mention of complication, not stated as uncontrolled - Primary Mixed hyperlipidemia Need vaccination-viral disease Need for prophylactic vaccination and in oculation against other viral diseases documented in this encounter Care Teams Urgent Care Physician Assistant Relationship Specialty Start Date End Date Bailey Doran MD PCP - General 09/20/00 03/25/[address], [address] [place] [address] documented as of this encounter
--- OUTSIDE RECORDS SUMMARY | 2022-08-10 09:42 | XMS_ITS | Encounter Summary ---
:1945 Author Organization [facility] Address [address] [place] [address]. 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
--- OUTSIDE RECORDS SUMMARY | 2022-08-10 09:42 | XMS_ITS | Encounter Summary ---
:1945 Author Organization [facility] Address [address] [place] [address] Care Team Providers Name Role Phone Bailey Doran MD Primary Care Provider Encounter Details Date Type Department Care Team Description 03/23/2005 Discharge Summary [facility] Vicki Foreman ([facility]-Anastacio Madsen MD Hospitalists [address] [facility] [address] [place], [place] [address] Social History Tobacco Use Types Packs/Day Years Used Date Smoking Tobacco: Former Cigarettes 0.5 16 Quit : 09/06/1978 Alcohol Use Standard Drinks/Week Comments Yes 10 (1 standard drink = 0.6 oz pure alcoh ol) Sex Assigned at Date Recorded Male 10/03/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 Acute myocardial infarction (PA), anterior. 2. Emergent left anterior descending (LAD) [...] be scheduled. VICKI FOREMAN MD 121:4 MT: [facility] Document: [id number] [place], [place] Name: CINTHYA HARTLEY Please refer to the Nursing Discharge Information Sheet for more detailed information regarding diet, physical activity limitations, medications and other pertinent instructions given to this patient upon discharge. DISCHARGE SUMMARY Page 2 of 2 LCN: CICU DSC: 03/19/2005 [place], [place] Name: CINTHYA HARTLEY MR#: : Admit Date: [id number] 1945 03/17/2005 Doctor: VICKI FOREMAN MD Please [...] on filedocumented in this encounter Care Teams Felting Machine Operator Relationship Specialty Start Date End Date Bailey Doran MD PCP - General 09/20/00 03/25/09 [address] , [facility] 100 [place] [address] documented as of this encounter
--- OUTSIDE RECORDS SUMMARY | 2022-08-10 09:42 | XMS_ITS | Encounter Summary ---
:1945 Author Organization [place] Address [address] [place] [address] Care Team Providers Name Role Phone Bailey Doran MD Primary Care Provider Encounter Details Date Type Department Care Team Description 03/17/2005 Admission H&P M [facility] Jadiel Rivera (Cloth Napping Supervisor) Clinic Bryant Mccoy MD Laboratory [address] [place] [address] [place] [address] [phone] Social History Tobacco Use Types Packs/Day Years Used Date Smoking Tobacco: Former Cigarettes 0.5 16 Quit : 09/06/1978 Alcohol Use Standard Drinks/Week Comments Yes 10 (1 standard drink = 0.6 oz pure alcoh ol) Sex Assigned at Date Recorded 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 Mr. Hartley has a [...] care. JADIEL RIVERA MD MT: ms Document: [id number] [place], [place] Name: RODOLFO HARTLEY HISTORY AND PHYSICAL Page 3 of 2 LCN:JANETH DSC: [place], [place] Name: RODOLFO HARTLEY MR#: : Admit Date: -30 1945 03/17/2005 Doctor: JADIEL RIVERA MD HISTORY AND PHYSICAL Page 1 of 2 documented in this encounter Plan of Treatment Not on filedocumented as of this encounter Visit Diagnoses Not on filedocumented in this encounter Care Teams Aerial Gunner Relationship Specialty Start Date End Date Bailey Doran MD PCP - General 09/20/00 03/25/[address], [address] [place] [address] documented as of this encounter
--- OUTSIDE RECORDS SUMMARY | 2022-08-10 09:42 | XMS_ITS | Encounter Summary ---
:1945 Author Organization [place] Address [address] [place] [address]. [place] [address] Care Team Providers Name Role Phone Andrey Tamez MD Primary Care Provider Bailey Doran MD Primary Care Provider Encounter Details Date Type Department Care Team Description 04/13/2005 Historic Results [facility]-Anastacio Madsen MD Hospitalists [address] 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 documented as of this encounter Plan of [...] CDT 11:49 AM CDT Yazan Foreman MD [facility] [employer] [facility] [employer] [facility] [facility] POCT Performing Organization Address City/State/ZIP Code Phon e Number MISYS documented in this encounter Visit Diagnoses Not on filedocumented in this encounter Care Teams Staffing Account Manager Relationship Specialty Start Date End Date Andrey Tamez MD PCP - General 03/26/09 Bailey Doran MD PCP - General 09/20/00 03/25/09 [address] [facility] 100 [place] [address] documented as of this encounter
--- OUTSIDE RECORDS SUMMARY | 2022-08-10 09:42 | XMS_ITS | Encounter Summary ---
:1945 Author Organization [facility] Address [address] [place] [address] Care Team Providers Name Role Phone Andrey Tamez MD Primary Care Provider Bailey Doran MD Primary Care Provider Andrey Tamez MD Unavailable Andrey Tamez MD Unavailable Encounter Details Date Type Department Care Team Description 03/17/2005 Historic Results [facility] Heart Unknown, [facility] ider [address] [address] Social History Tobacco Use Types Packs/Day Years Used Date Smoking Tobacco: Former Cigarettes 0.5 16 Quit : 09/06/1978 Alcohol Use Standard Drinks/Week Comments Yes 10 (1 standard drink = 0.6 oz pure alcoh ol) Sex Assigned at Date Recorded 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
--- OUTSIDE RECORDS SUMMARY | 2022-08-10 09:42 | XMS_ITS | Encounter Summary ---
:1945 Author Organization [facility] Address [address] [place] [address] Care Team Providers Name Role Phone Andrey Tamez MD Primary Care Provider Bailey Doran MD Primary Care Provider Andrey Tamez MD Unavailable Andrey Tamez MD Unavailable Encounter Details Date Type Department Care Team Description 03/30/2005 Office Visit-[facility] Heart Unknown, Yassine tay MD [address] [address] Social History Tobacco Use Types Packs/Day Years Used Date Smoking Tobacco: Former Cigarettes 0.5 16 Quit : 09/06/1978 Alcohol Use Standard Drinks/Week Comments Yes 10 (1 standard drink = 0.6 oz pure alcoh ol) Sex Assigned at Date Recorded Male 10/03/2020 10:26 AM FANCY STITCHER documented as of this encounter Progress Notes Unknown, DoctorMD - 04/01/2005 9:18 AM CDT Progress Note Created by: Vanessa Peters PA-C DATE: 03/30/2005 [id number] RODOLFO HARTLEY DATE OF : 1945 AGE: [age] years old Referring Physician: MERA ANGULO Referring Clinic: [facility] CURRENT DIAGNOSES 1. AZ-Acute Anterior, 410.11 2. - CAD, 414.00 3. [...] a delightful 59-year-old gentleman who presents to [facility] today for afollow-up visit regarding his recent hospitalization. 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 An acute anterior wall AZ with emergent stenting to the LAD. The [...] on filedocumented in this encounter Care Teams Oracle Ebs Consultant Relationship Specialty Start Date End Date Andrey Tamez MD PCP - General 03/26/09 Bailey Doran MD PCP - General 09/20/00 03/25/[address], [address] [place] [address] Andrey Tamez MD PCP - Assigned PCP 09/11/12 11/08/18 [address] [employer] [address] [place] [address] Andrey Tamez MD Assigned PCP 09/11/12 09/07/20 [address] [facility] [address] [place], [place] [address] documented as of this encounter
--- OUTSIDE RECORDS SUMMARY | 2022-08-10 09:42 | XMS_ITS | Encounter Summary ---
:1945 Author Organization [facility] Address [address] [place] [address]. [place] [address] Care Team Providers Name Role Phone Andrey Tamez MD Primary Care Provider Bailey Doran MD Primary Care Provider Encounter Details Date Type Department Care Team Description 04/08/[address] 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
--- OUTSIDE RECORDS SUMMARY | 2022-08-10 09:42 | XMS_ITS | Encounter Summary ---
:1945 Author Organization [place] Address [address] [place] [address] Care Team Providers Name Role Phone Andrey Tamez MD Primary Care Provider Bailey Doran MD Primary Care Provider Encounter Details Date Type Department Care Team Description 03/17/2005 Historic Results [facility] Everton Rivera [place] Eva Mccoy MD [address] [address] [phone] Social History Tobacco Use Types Packs/Day Years Used Date Smoking Tobacco: Former Cigarettes 0.5 16 Quit : 09/06/1978 Alcohol Use Standard Drinks/Week Comments Yes 10 (1 standard drink = 0.6 oz pure alcoh ol) Sex Assigned at Date Recorded Male 10/03/2020 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 Abnormal ECG No previous ECGs available Specimen Anatomical Collection Method Collection Time Receive d Time (Source) Location / / Volume Laterality 03/17/2005 5:08 AM 5 4:56 CDT AM CDT Jadiel Rivera MD ECG ORDERABLES Performing Organization Address City/State/ZIP Code Phon e Number RADIOLOGY RESULTS documented in this encounter Visit Diagnoses Not on filedocumented in this encounter Care Teams Beef Lugger Relationship Specialty Start Date End Date Andrey Tamez MD PCP - General 03/26/09 Bailey Doran MD PCP - General 09/20/00 03/25/[address], [address] [place] [address] documented as of this encounter
--- OUTSIDE RECORDS SUMMARY | 2022-08-10 09:42 | XMS_ITS | Encounter Summary ---
:1945 Author Organization [facility] Address [address] [place] [address] Care Team Providers Name Role Phone Andrey Tamez MD Primary Care Provider Bailey Doran MD Primary Care Provider Encounter Details Date Type Department Care Team Description 03/17/2005 Historic Results [facility] Evetron Rivera [place] Eva Mccoy MD 303 Annabella Rajani [address] [address] [phone] Social History Tobacco Use Types Packs/Day Years Used Date Smoking Tobacco: Former Cigarettes 0.5 16 Quit : 09/06/1978 Alcohol Use Standard Drinks/Week Comments Yes 10 (1 standard drink = 0.6 oz pure alcoh ol) Sex Assigned at Date Recorded Male 10/03/2020 10:26 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 documented as of this encounter Plan of [...] 9:44 CDT AM CDT Jadiel Rivera MD [facility] POCT Performing Organization Address City/State/ZIP Code Phon e Number MISYS (ABNORMAL) Glucose by meter (03/17/2005 5:05 PM CDT) P athologist Signature Glucose 160 (H) 60 - 110 MISYS mg/dL Specimen Anatomical Collection Method Collection Time Receive d Time (Source) Location / / Volume Laterality 03/17/2005 5:05 PM 5 9:43 CDT AM CDT Jadiel FUNES - [place] POCT Performing Organization Address [facility] Code Phon e Number MISYS (ABNORMAL) Glucose by meter (03/17/2005 11:42 AM CDT) P athologist Signature Glucose 164 (H) 60 - 110 MISYS mg/dL Specimen Anatomical Collection Method Collection Time Receive d Time (Source) Location / / Volume Laterality 03/17/2005 11:42 03/18/2005 9:40 AM CDT AM CDT Jadiel Rivera MD LAB - ANGELO POCT Performing Organization Address [facility] Phon e Number MISYS (ABNORMAL) Troponin I (03/17/2005 11:35 AM CDT) P athologist Signature Troponin I 179.89 (HH) 0.00 - MISYS 0.40 ug/L Specimen Anatomical Collection Method Collection Time Receive d Time (Source) Location / / Volume Laterality 03/17/2005 11:35 03/17/2005 AM CDT 11:30 AM CDT Jadiel Rivera MD LAB - BLOOD ORDERABLES Performing Organization Address [facility] Phon e Number MISYS (ABNORMAL) Troponin [...] LAB - BLOOD ORDERABLES Performing Organization Address [facility] Phon e Number MISYS Platelet count (03/17/2005 7:00 AM CDT) P athologist Signature Platelet Count 194 150 - 450 MISYS 10e9/L Specimen Anatomical Collection Method Collection Time Receive d Time (Source) Location / / Volume Laterality 03/17/2005 7:00 AM 5 7:00 CDT AM CDT Jadiel Rivera MD LAB - BLOOD ORDERABLES Performing Organization Address [facility] Phon e Number MISYS (ABNORMAL) Partial thromboplastin time (03/17/2005 7:00 AM CDT) P athologist Signature PTT 51 (H) 22 - 37 sec MISYS Specimen Anatomical Collection Method Collection Time Receive d Time (Source) Location / / Volume Laterality 03/17/2005 7:00 AM 5 7:00 CDT AM CDT Jadiel Rivera MD LAB - BLOOD ORDERABLES Performing Organization Address [facility] Phon e Number MISYS INR (03/17/2005 2:00 AM CDT) P athologist Signature INR 0.97 0.86 - 1.14 MISYS Comment: Specimen slightly hemolyzed Specimen Anatomical Collection Method Collection Time Receive d Time (Source) Location / / Volume Laterality 03/17/2005 2:00 AM 5 2:06 CDT AM CDT Amy Ulrich MD LAB - BLOOD ORDERABLES Performing Organization Address [facility] Phon e Number MISYS Partial thromboplastin time (03/17/2005 2:00 AM CDT) P athologist Signature PTT 28 22 - 37 sec MISYS Comment: Specimen slightly hemolyzed Specimen Anatomical Collection Method Collection Time Receive d Time (Source) Location / / Volume Laterality 03/17/2005 2:00 AM 5 2:06 CDT AM CDT Amy Ulrich MD LAB - BLOOD ORDERABLES Performing Organization Address [facility] Phon e Number MISYS (ABNORMAL) Comprehensive [...] LAB - BLOOD ORDERABLES Performing Organization Address [facility] Phon e Number MISYS Troponin I (03/17/2005 2:00 AM CDT) athologist Signature Troponin I 0.36 0.00 - 0.40 MISYS ug/L Specimen Anatomical Collection Method Collection Time Receive d Time (Source) Location / / Volume Laterality 03/17/2005 2:00 AM 5 2:06 CDT AM CDT Amy Ulrich MD LAB - BLOOD ORDERABLES Performing Organization Address [facility] Phon e Number MISYS Myoglobin (03/17/2005 2:00 AM CDT) P athologist Signature Myoglobin 43 <120 ug/L MISYS Specimen Anatomical Collection Method Collection Time Receive d Time (Source) Location / / Volume Laterality 03/17/2005 2:00 AM 5 2:06 CDT AM CDT Amy Ulrich MD LAB - BLOOD ORDERABLES Performing Organization Address City/[facility] Phon e Number MISYS (ABNORMAL) Hemogram [...] LAB - BLOOD ORDERABLES Performing Organization Address City/State/[facility] Code Phon e Number MISYS Platelet count [...] on filedocumented in this encounter Care Teams [employer] Relationship Specialty Start Date End Date Andrey Tamez MD PCP - General 03/26/09 Bailey Doran MD PCP - General 09/20/00 03/25/09 [address] [facility] [address] [place] [address] documented as of this encounter
--- OUTSIDE RECORDS SUMMARY | 2022-08-10 09:42 | XMS_ITS | Encounter Summary ---
:1945 Author Organization [place] Address [address] [place] [address] Care Team Providers Name Role Phone Bailey Doran MD Primary Care Provider Encounter Details Date Type Department Care Team Description 04/12/2008 Results Only [facility] Se zaid Lipscomb MD [facility] EMERGENCY CODIY CARO PA Results [address] [place], [place] [address] (Wo rk) Social History Tobacco Use Types Packs/Day Years Used Date Smoking Tobacco: Former Cigarettes 0.5 16 Quit : 09/06/1978 Alcohol Use Standard Drinks/Week Comments Yes 10 (1 standard drink = 0.6 oz pure alcoh ol) Sex Assigned at Date Recorded 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 Facial droop. TECHNIQUE: 3D vqri-zs-rhneii MR angiogra phy was performed through the [facility]. FINDINGS: The distal vertebral arteries, [...] on filedocumented in this encounter Care Teams Case Maker Relationship Specialty Start Date End Date Bailey Doran MD PCP - General 09/20/00 03/25/[address], [facility] [address] [place] [address] documented as of this encounter
--- OUTSIDE RECORDS SUMMARY | 2022-08-10 09:42 | XMS_ITS | Encounter Summary ---
:1945 Author Organization [place] Address [address] [place] [address] Care Team Providers Name Role Phone Andrey Tamez MD Primary Care Provider Bailey Doran MD Primary Care Provider Encounter Details Date Type Department Care Team Description 03/18/2005 Historic Results [facility] Everton Rivera [place] Eva Mccoy MD 303 Briscoe Rajani [address] [id number] [phone] Social History Tobacco Use Types Packs/Day Years Used Date Smoking Tobacco: Former Cigarettes 0.5 16 Quit : 09/06/1978 Alcohol Use Standard Drinks/Week Comments Yes 10 (1 standard drink = 0.6 oz pure alcoh ol) Sex Assigned at Date Recorded 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 documented in this encounter Results EKG 12 LEAD (03/18/2005 9:13 AM CDT) [facility] Method Time Signature Ventricular Rate 91 BPM RADIOLOGY RESULTS Atrial Rate 91 BPM RADIOLOGY RESULTS IN Interval 158 ms RADIOLOGY RESULTS QRS Duration 84 ms RADIOLOGY RESULTS QT 394 ms RADIOLOGY RESULTS QTc 484 ms RADIOLOGY RESULTS P [place] 60 degrees RADIOLOGY RESULTS R AXIS 58 degrees RADIOLOGY RESULTS T [place] 104 degrees RADIOLOGY RESULTS Interpretation Sinus rhythm [...] on filedocumented in this encounter Care Teams Administrative Underwriter Relationship Specialty Start Date End Date Andrey Tamez MD PCP - General 03/26/09 Bailey Doran MD PCP - General 09/20/00 03/25/[address], [place] [address] [facility] [address] documented as of this encounter
--- OUTSIDE RECORDS SUMMARY | 2022-08-10 09:42 | XMS_ITS | Encounter Summary ---
:1945 Author Organization [facility] Address [address] [place] [address] Care Team Providers Name Role Phone Andrey Tamez MD Primary Care Provider Bailey Doran MD Primary Care Provider Encounter Details Date Type Department Care Team Description 04/06/2005 Historic Results [facility] Madsen MD Hospitalists [address] [facility] [address] [place], [place] [address] (Wo rk) Social History Tobacco Use Types Packs/Day Years Used Date Smoking Tobacco: Former Cigarettes 0.5 16 Quit : 09/06/1978 Alcohol Use Standard Drinks/Week Comments Yes 10 (1 standard drink = 0.6 oz pure alcoh ol) Sex Assigned at Date Recorded 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
--- OUTSIDE RECORDS SUMMARY | 2022-08-10 09:42 | XMS_ITS | Encounter Summary ---
:1945 Author Organization [place] Address [address] [place] [address] Care Team Providers Name Role Phone Andrey Tamez MD Primary Care Provider Bailey Doran MD Primary Care Provider Andrey Tamez MD Unavailable Andrey Tamez MD Unavailable Encounter Details Date Type Department Care Team Description 04/20/2005 Historic Results [facility] Heart Unknown, [facility] ider [address] [address] Social History Tobacco Use Types Packs/Day Years Used Date Smoking Tobacco: Former Cigarettes 0.5 16 Quit : 09/06/1978 Alcohol Use Standard Drinks/Week Comments Yes 10 (1 standard drink = 0.6 oz pure alcoh ol) Sex Assigned at Date Recorded 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
--- OUTSIDE RECORDS SUMMARY | 2022-08-10 09:42 | XMS_ITS | Encounter Summary ---
:1945 Author Organization [facility] Address [address] [place] [address]. [place] [address] Care Team Providers Name Role Phone Andrey Tamez MD Primary Care Provider Bailey Doran MD Primary Care Provider Andrey Tamez MD Unavailable Andrey Tamez MD Unavailable Encounter Details Date Type Department Care Team Description 09/29/2007 Office Visit-[facility] Yazan Foreman [facility] Kemi Madsen MD [address] [place] [address] [place] [address] (Wo rk) Social History Tobacco Use Types Packs/Day Years Used Date Smoking Tobacco: Former Cigarettes 0.5 16 Quit : 09/06/1978 Alcohol Use Standard Drinks/Week Comments Yes 10 (1 standard drink = 0.6 oz pure alcoh ol) Sex Assigned at Date Recorded 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 DATE: 09/29/2007 RODOLFO HARTLEY DATE OF : 1945 AGE: [age] years old Referring Physician: LASHON FERNÁNDEZ Referring Clinic: [facility] CURRENT DIAGNOSES 1. - CAD, 414.00 2. - Hyperlipidemia, 272.4 3. - Hypertension, benign, 401.1 4. Diabetes Mellitus-NIDD/circ dis/uncont, 250.72 5. MO-S/P Anterior, 412 6. PTCA-LAD FLORI stent 03/2005 [...] PAST HISTORY Past Medical Illnesses: hyperlipidemia, diabetes uwjekoun-enk-xolqccf dependent, hypertension Past Cardiac Illnesses: chest pain, [...] Seat Belt Use - always; Occupation - [employer]; Residence - lives with ; Place of [...] excursion, no use of accessory muscles <FONT COLOR=#[id number]><FONT POINT=10> CARDIAC regular rhythm, S1 normal, S2 [...] 1 p.o. q.d. #30 Physician Order <FONT COLOR=#[id number]><FONT POINT=10> IMPRESSION/PLAN: 1. Coronary artery disease, status [...] appreciate seeing him again in a year.<FONT COLOR=#[id number]><FONT POINT=10> TODAYS ORDERS 1. F/U with Yazan Foreman MD 1 year 2. Treadmill Nuclear Study 1 year 3. Lipid profile/ALT 1 year Yazan Foreman M.D. documented in this encounter Plan of Treatment Not on filedocumented as of this encounter Visit Diagnoses Not on filedocumented in this encounter Care Teams Analytical Manager Relationship Specialty Start Date End Date Andrey Tamez MD PCP - General 03/26/09 Bailey Doran MD PCP - General 09/20/00 03/25/[address], [facility] 100 [place] [address] Andrey Tamez MD PCP - Assigned PCP 09/11/12 11/08/18 [address] [place] [address] Andrey Tamez MD Assigned PCP 09/11/12 09/07/20 [address] [place] [address] documented as of this encounter
--- OUTSIDE RECORDS SUMMARY | 2022-08-10 09:42 | XMS_ITS | Encounter Summary ---
:1945 Author Organization [place] Address [address] [place] [address] Care Team Providers Name Role Phone Andrey Tamez MD Primary Care Provider Bailey Doran MD Primary Care Provider Andrey Tamez MD Unavailable Andrey Tamez MD Unavailable Encounter Details Date Type Department Care Team Description 03/11/2006 Historic Results [facility] Heart Unknown, [facility] ider [address] [address] Social History Tobacco Use Types Packs/Day Years Used Date Smoking Tobacco: Former Cigarettes 0.5 16 Quit : 09/06/1978 Alcohol Use Standard Drinks/Week Comments Yes 10 (1 standard drink = 0.6 oz pure alcoh ol) Sex Assigned at Date Recorded 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
--- OUTSIDE RECORDS SUMMARY | 2022-08-10 09:42 | XMS_ITS | Encounter Summary ---
:1945 Author Organization [place] Address [address] [place] [address] Care Team Providers Name Role Phone Andrey Tamez MD Primary Care Provider Bailey Doran MD Primary Care Provider Andrey Tamez MD Unavailable Andrey Tamez MD Unavailable Encounter Details Date Type Department Care Team Description 11/02/2005 Office Visit-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 - Hyperlipidemia, 272.4 2. KS-S/P Anterior, 412 3. - Cardiomyopathy Ischemic, 414.8 [...] p.o. b.i.d. CHIEF COMPLAINTS f/u CAD, post KS HISTORY OF PRESENT ILLNESS Rodolfo is a [...] denies any chest pain similar to his KS. He does have occasional episodes of sharp [...] Seat Belt Use - always; Occupation - [email or web address]; Residence - lives with ; Place of - [place]; Hours Worked - 40 hours per week; PHYSICAL EXAMINATION VITAL SIGNS: Blood Pressure: 130/80 Sitting, Left arm, large cuff 132/82 Retaken by TRANSITION MANAGER/PA Pulse- 70.00/min. Weight- 184.00 lbs. Height- 70.00 [...] oriented to time, person and place. <FONT COLOR=#[id number]><FONT POINT=10> MEDICATIONS UPDATED TODAY: IMPRESSIONS/PLAN <FONT COLOR=#[id number]><FONT POINT=10> Coronary artery disease, status post myocardial [...] me to participate in his care. <FONT COLOR=#[id number]><FONT POINT=10>TODAYS ORDERS 1. Cholesterol Fasting 5 months Herminia Franz documented in this encounter Plan of Treatment Not on filedocumented as of this encounter Visit Diagnoses Not on filedocumented in this encounter Care Teams Can Intake Worker Relationship Specialty Start Date End Date Andrey Tamez MD PCP - General 03/26/09 Bailey Doran MD PCP - General 09/20/00 03/25/[address], [place] [address] [place] [address] Andrey Tamez MD PCP - Assigned PCP 09/11/12 11/08/18 [address] [place] [address] Andrey Tamez MD Assigned PCP 09/11/12 09/07/20 [address] [place] [address] documented as of this encounter
--- OUTSIDE RECORDS SUMMARY | 2022-08-10 09:43 | XMS_ITS | Encounter Summary ---
:1945 Author Organization [place] Address [address] [place] [address] Care Team Providers Name Role Phone Bailey Doran MD Primary Care Provider Encounter Details Date Type Department Care Team Description 11/24/2001 Orders Only [facility] Bailey Doran, MIXED HYPERLIPIDEMIA; Physicians DIABETES UNCOMPL ADULT-TYPE II [address] [address] , [address] [id number] Social History Tobacco Use Types Packs/Day Years Used Date Smoking Tobacco: Former Cigarettes 0.5 16 Quit : 09/06/1978 Alcohol Use Standard Drinks/Week Comments Yes 10 (1 standard drink = 0.6 oz pure alcoh ol) Sex Assigned at Date Recorded 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 HCL LIPID PANEL Routine 11/25/2001 12:36 AM Mixed Resul ts for this THERAPIST Hyperlipidemia procedure are in Diabetes Uncompl the results Adult-Type Ii section. HC VENOUS COLLECTION Routine 11/24/2001 8:36 AM Mixed THERAPIST Hyperlipidemia Diabetes Uncompl Adult-Type Ii documented in this encounter Results (ABNORMAL) A.M.A. HEPATIC PANEL (11/25/2001 12:36 AM THERAPIST) Analysis Performed At Patho logist Time Signature Comments DNR [facility] Protein Total 6.9 6.0 - 8.3 [facility] G/DL Albumin 4.7 3.5 - 4.9 [facility] G/DL Globulin 2.2 2.2 - 4.2 [facility] Calculated G/DL A/G Ratio 2.1 (H) 0.8 - 2.0 [facility] Bilirubin Total 0.6 0.2 - 1.5 [facility] MG/DL Bilirubin Direct 0.1 0.0 - 0.3 [facility] MG/DL Alkaline 70 20 - 125 [facility] Phosphatase U/L AST 17 2 - 50 U/L [facility] ALT 23 2 - 60 U/L [facility] Specimen (Source) Anatomical Location Collection Method / Collectio n Time Received Time / Laterality Volume 11/24/2001 Bailey Doran MD LABORATORY Performing Organization Address City/State/ZIP [facility] Phon e Number [facility] (ABNORMAL) A.M.A. LIPID PANEL (11/25/2001 12:36 AM THERAPIST) Patholo gist Method Time Signature Comments DNR [facility] Triglycerides 216 (H) <150 MG/DL [facility] Cholesterol 170 <200 MG/DL [facility] Cholesterol 9 PERCENTILE [facility] Percentile HDL Cholesterol 43 >39 MG/DL [facility] LDL Cholesterol 84 <130 MG/DL [facility] Calculated Cholesterol/HDL 4.0 3.0 - 6.5 [facility] Ratio Specimen (Source) Anatomical Location Collection Method / Collectio n Time Received Time / Laterality Volume 11/24/2001 Bailey Dorna MD LABORATORY Performing Organization Address City/State/ZIP [facility] Phon e Number [facility] documented in this encounter Visit Diagnoses Diagnosis Mixed hyperlipidemia Type II or unspecified type diabetes vijaya litus without mention of complication, not stated as uncontrolled documented in this encounter Care Teams Business Division Chair Relationship Specialty Start Date End Date Bailey Doran MD PCP - General 09/20/00 03/25/[address] [place] [address] documented as of this encounter
--- OUTSIDE RECORDS SUMMARY | 2022-08-10 09:43 | XMS_ITS | Encounter Summary ---
:1945 Author Organization [place] Address [address] [place] [address] Care Team Providers Name Role Phone Bailey Doran MD Primary Care Provider Reason for Referral - Closed Specialty Diagnoses / Procedures Referred By Contact Refer red To Contact Diagnoses Type II or unspecified type diabetes mellitus without mention of complication, not stated as uncontrolled Bailey Doran MD [address], [facility] 100 [place] [address] Referral ID Status Reason Start Date Expiration Date Visits Requ ested Visits Authorized [id number] Closed 12/27/2000 09/05/2011 1 1 Reason for Visit Reason Comments Lipids recheck Diabetes Encounter Details Date Type Department Care Team Description 12/27/[address] 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 LIPID PANEL [18903.003] Order #: [id number] Class: [facility] AST [[id number] 90] Order #: [id number] Class: [facility] HEMOGLOBIN A1C [27076.001-90] Order #: [id number] Class: [facility] Diabete s education referral. CONSULT TO OTHER SPECIALTY [[id number]] Order #: [id number] Class: External referral documented in this encounter [...] A.M.A. LIPID PANEL (12/28/2000 1:44 AM CDT) [facility] gist Method Time Signature Comments DNR [facility] Triglycerides 139 40 - 199 MG/DL [facility] Cholesterol 170 120 - 199 [facility] MG/DL [facility] Cholesterol 9 PERCENTILE [facility] Percentile [facility] HDL Cholesterol 41.3 35ORHIGHER [facility] MG/DL [facility] LDL Cholesterol 101 75 - 129 MG/DL [facility] Calculated [facility] Comment: ?NATIONAL CHOLESTEROL EDUCATION PROGRAM (NCEP) ? [...] TO SECOND REPORT OF THE NCEP IN [facility] 1992;[id number]:[id number] FOR GUIDELINES. Cholesterol/HDL Ratio 4.1 3.9 - 6.5 [facility] [place] Specimen (Source) Anatomical Location Collection Method / Collectio n Time Received Time / Laterality Volume 12/27/2000 Bailey Doran MD LABORATORY Performing Organization Address [facility] Phon e Number AD[facility] MARTINE[facility] HEMOGLOBIN A1C (12/28/2000 1:10 AM CDT) P athologist Signature Hemoglobin A1C 6.1 PERCENT [facility] Specimen (Source) Anatomical Location Collection Method / Collectio n Time Received Time / Laterality Volume 12/27/2000 Narrative [facility] - 12/28/2000 1:10 AM CDT REFERENCE RANGE: ??NON-DIABETIC ??<6.5% THE [employer]ATION RECOMM ENDS THAT THE GOAL OF THERAPY SHOULD BE A HEMOGLOBIN A 1C OF <7% AND THAT PHYSICIANS SHOULD REEVALUATE THE TR EATMENT REGIMEN IN PATIENTS WITH HEMOGLOBIN A1C VALUES CONSISTENTLY >8%. Bailey Doran MD LABORATORY Performing Organization Address [facility] Phon e Number [facility] AST (12/27/2000 11:57 PM CDT) P athologist Signature AST 17 1 - 45 U/L [facility] Specimen (Source) Anatomical Location Collection Method / Collectio n Time Received Time / Laterality Volume 12/27/2000 Bailey Doran MD LABORATORY Performing Organization Address [facility] Phon e Number ADAM M[facility]INE[facility] (ABNORMAL) GLUCOSE, FASTING (12/27/2000 8:13 AM CDT) P athologist Signature Glucose 122 (A) 60 - 115 [facility] mg/dL Specimen (Source) Anatomical Collection Method Collection Time Re ceived Time Location / / Volume Laterality 12/27/2000 8:13 AM CDT Bailey Doran MD LABORATORY Performing Organization Address [facility] Phon e Number [facility] documented in this encounter Visit Diagnoses Diagnosis Type II or unspecified type diabetes vijaya litus without mention of complication, not stated as uncontrolled - Primary Mixed hyperlipidemia documented in this encounter Care Teams Laundry Manager Relationship Specialty Start Date End Date Bailey Doran MD PCP - General 09/20/00 03/25/09 [address] [facility] 100 [place] [address] documented as of this encounter
--- OUTSIDE RECORDS SUMMARY | 2022-08-10 09:43 | XMS_ITS | Encounter Summary ---
:1945 Author Organization [place] Address [address] [place] [address] Care Team Providers Name Role Phone Miguel Woodward MD Primary Care Provider Reason for Visit Reason Comments Refill Request lipitor Encounter Details Date Type Department Care Team Description 11/24/2001 Refill [facility] Miguel Woodward MD Refill Request (lipitor) Physicians [address], [address] [place] [address] 100 [address] [place] [address] [phone] Social History Tobacco Use Types Packs/Day Years Used Date Smoking Tobacco: Former Cigarettes 0.5 16 Quit : 09/06/1978 Alcohol Use Standard Drinks/Week Comments Yes 10 (1 standard drink = 0.6 oz pure alcoh ol) Sex Assigned at Date Recorded 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 Contact: sarai [phone] Pt in for lab draw today. Pt will need a refill on Lipitor called to pharmacy. Ok to fold until LES back from vacation. Pt given samples. documented in this encounter Plan of Treatment Not on filedocumented as of this encounter Visit Diagnoses Diagnosis Mixed hyperlipidemia - Primary documented in this encounter Care Teams Scientist Engineer Relationship Specialty Start Date End Date Miguel Woodward MD PCP - General 09/20/00 03/25/09 [address] [facility] 100 [place] [address] documented as of this encounter
--- OUTSIDE RECORDS SUMMARY | 2022-08-10 09:43 | XMS_ITS | Encounter Summary ---
:1945 Author Organization [place] Address [address] [place] [address] Care Team Providers Name Role Phone Miguel Woodward MD Primary Care Provider Reason for Visit Reason Comments Refill Request lipitor Encounter Details Date Type Department Care Team Description 10/31/2001 Refill [facility] Miguel Woodward MD Refill Request (lipitor) Physicians [address], [address] [place] [address] 100 [address] [place] [address] [phone] Social History Tobacco Use Types Packs/Day Years Used Date Smoking Tobacco: Former Cigarettes 0.5 16 Quit : 09/06/1978 Alcohol Use Standard Drinks/Week Comments Yes 10 (1 standard drink = 0.6 oz pure alcoh ol) Sex Assigned at Date Recorded 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
--- OUTSIDE RECORDS SUMMARY | 2022-08-10 09:43 | XMS_ITS | Encounter Summary ---
:1945 Author Organization [place] Address [address] [place] [address] Care Team Providers Name Role Phone Unavailable Primary Care Provider Unavailable Encounter Details Date Type Department Care Team Description 05/19/2000 Orders Only [facility] Abstract, Provider ABST RACTING RESULTS Physicians (Primary Dx) [address] 100 [place] [phone] Social History Tobacco Use Types Packs/Day Years [...] Time / Laterality Volume 05/19/2000 Narrative ADAM FERG[facility]ON - 05/19/2000 Abstracted from paper copy. Provider Abstract LABORATORY Performing Organization Address City/[facility] Phon e Number ADAM MARTINEZ (ABNORMAL) HEMOGRAM [...]
--- OUTSIDE RECORDS SUMMARY | 2022-08-10 09:43 | XMS_ITS | Encounter Summary ---
:1945 Author Organization [place] Address [address] [place] [address] Care Team Providers Name Role Phone Bailey Doran MD Primary Care Provider Encounter Details Date Type Department Care Team Description 04/08/2001 Orders Only [facility] Bailey Doran, MIXED HYPERLIPIDEMIA Physicians (Primary Dx) [address] , [address] [phone] Social History Tobacco Use Types Packs/Day Years Used Date Smoking Tobacco: Former Cigarettes 0.5 16 Quit : 09/06/1978 Alcohol Use Standard Drinks/Week Comments Yes 10 (1 standard drink = 0.6 oz pure alcoh ol) Sex Assigned at Date Recorded Male 10/03/2020 10:26 AM [employer]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 [employer] documented as of this encounter Plan of [...] LIPID PANEL (04/09/2001 12:30 AM CDT) [facility] Method Time Signature Comments DNR [facility] Triglycerides 169 (H) <150 MG/DL [facility] Cholesterol 246 (H) <200 MG/DL [facility] Cholesterol 73 PERCENTILE [facility] Percentile HDL Cholesterol 39 (L) >40 MG/DL [facility] LDL Cholesterol 173 (H) <100 MG/DL [facility] Calculated Comment: LDL CHOLESTEROL (MG/DL) GOALS [...] Organization Address City/State/ZIP Code Phon e Number [facility] documented in this encounter Visit Diagnoses Diagnosis Mixed hyperlipidemia - Primary documented in this encounter Care Teams Counter Supervisor Relationship Specialty Start Date End Date Bailey Doran MD PCP - General 09/20/00 03/25/[address], [place] [address] [place] [address] documented as of this encounter
--- OUTSIDE RECORDS SUMMARY | 2022-08-10 09:43 | XMS_ITS | Encounter Summary ---
:1945 Author Organization [place] Address [address] [place] [address] Care Team Providers Name Role Phone Miguel Woodward MD Primary Care Provider Reason for Visit Reason Comments Refill Request Encounter Details Date Type Department Care Team Description 04/18/2001 Refill [facility] Miguel Woodward MD Refill Request [address] , [facility] [address] 100 [place] [address] [place], [place] [phone] (Wo rk) Social History Tobacco Use Types Packs/Day Years Used Date Smoking Tobacco: Former Cigarettes 0.5 16 Quit : 09/06/1978 Alcohol Use Standard Drinks/Week Comments Yes 10 (1 standard drink = 0.6 oz pure alcoh ol) Sex Assigned at Date Recorded Male 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 Contact: tgt [phone], pt Pt rec'd a letter stating to take liptior. Pt will need Rx-last one 02/04. [place]. documented in this encounter Plan of Treatment Not on filedocumented as of this encounter Visit Diagnoses Diagnosis Mixed hyperlipidemia - Primary documented in this encounter Care Teams Network Systems Integrator Relationship Specialty Start Date End Date Miguel Woodward MD PCP - General 09/20/00 03/25/[address], [facility] 100 [place] [address] documented as of this encounter
--- OUTSIDE RECORDS SUMMARY | 2022-08-10 09:43 | XMS_ITS | Encounter Summary ---
:1945 Author Organization [place] Address [address] [place] [address] Care Team Providers Name Role Phone Bailey Doran MD Primary Care Provider Reason for Visit Reason Comments Blood Draw Encounter Details Date Type Department Care Team Description 03/16/2001 Office Visit [facility] Bailey Doran, DIABET ES UNCOMPL ADULT-TYPE II (Primary Dx); Physicians MIXED HYPERLIPIDEMIA [address] , [address] [facility] 100 [place] [address] [phone] Social History Tobacco Use Types Packs/Day Years Used Date Smoking Tobacco: Former Cigarettes 0.5 16 Quit : 09/06/1978 Alcohol Use Standard Drinks/Week Comments Yes 10 (1 standard drink = 0.6 oz pure alcoh ol) Sex Assigned at Date Recorded 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 HEMOGLOBIN A1C [24993.001-90] Order #: [id number] Class: Katey skelton. METFORMIN HCL TABS 50 [...] P athologist Signature Hemoglobin A1C 5.9 PERCENT [facility] Specimen (Source) Anatomical Location Collection Method / Collectio n Time Received Time / Laterality Volume 03/16/2001 Narrative [facility] - 03/17/2001 1:31 AM CDT ?REFERENCE RANGE: NON-DIABETIC ??<6.5% THE [place] [employer] ASSOCIATION RECOMM ENDS THAT THE GOAL OF THERAPY SHOULD BE A HEM OGLOBIN A1C OF <7% AND THAT PHYSICIANS SHOULD RE EVALUATE THE TREATMENT REGIMEN IN PATIENTS WITH H EMOGLOBIN A1C VALUES CONSISTENTLY >8.0%. Bailey Doran MD LABORATORY Performing Organization Address City/State/ZIP Code Phon e Number [facility] MICROALBUMIN, SEMIQUANT (03/16/2001 11:37 AM CDT) athologist Signature Microalbumin normal [facility] Specimen (Source) Anatomical Collection Method Collection Time Re ceived Time Location / / Volume Laterality 03/16/2001 11:37 AM CDT Narrative [facility] - 03/16/2001 11:37 AM CDT ALB: 10 mg/l CRE: 50 mg/dl A:C: 30 mg/ g Bailey Doran MD LABORATORY Performing Organization Address City/[facility] Phon e Number [facility] documented in this encounter Visit Diagnoses Diagnosis Type II or unspecified type diabetes vijaya litus without mention of complication, not stated as uncontrolled - Primary Mixed hyperlipidemia documented in this encounter Care Teams Two Needle Machine Operator Relationship Specialty Start Date End Date Bailey Doran MD PCP - General 09/20/00 03/25/09 [address] , [facility] 100 [place] [address] documented as of this encounter
--- OUTSIDE RECORDS SUMMARY | 2022-08-10 09:43 | XMS_ITS | Encounter Summary ---
:1945 Author Organization [place] Address [address] [place] [address] Care Team Providers Name Role Phone Bailey Doran MD Primary Care Provider Encounter Details Date Type Department Care Team Description 11/09/2000 Orders Only [facility] Bailey Doran, ROUTIN E MEDICAL EXAM Physicians (Primary Dx) [address] , [address] [place] [address] [place] [address] [phone] Social History Tobacco Use Types Packs/Day Years Used Date Smoking Tobacco: Former Cigarettes 0.5 16 Quit : 09/06/1978 Alcohol Use Standard Drinks/Week Comments Yes 10 (1 standard drink = 0.6 oz pure alcoh ol) Sex Assigned at Date Recorded Male 10/03/2020 10:26 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 documented in this encounter Results OCCULT BLOOD, STOOL (3 SPECS) (11/09/2000 1:59 PM ORDER TAKER) P athologist Signature Occult Blood neg [facility] Occult Blood neg [facility] Occult Blood neg [facility] Specimen (Source) Anatomical Collection Method Collection Time Re ceived Time Location / / Volume Laterality 11/09/2000 1:59 PM ORDER TAKER Bailey Doran MD LABORATORY Performing Organization Address City/State/ZIP Code Phon e Number [facility] documented in this encounter Visit Diagnoses Diagnosis Routine general medical examination at a health care facility - Primary documented in this encounter Care Teams Evp Relationship Specialty Start Date End Date Bailey Doran MD PCP - General 09/20/00 03/25/09 [address] , [facility] 100 [place] [address] documented as of this encounter
--- OUTSIDE RECORDS SUMMARY | 2022-08-10 09:43 | XMS_ITS | Encounter Summary ---
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 range = 6-17 mmol/l) *no components in computer. Abstracted from paper copy. Provider Abstract LABORATORY Performing Organization Address [facility]/ZIP Code Phon e Number [facility] (ABNORMAL) CLINICAL CHEMISTRY TEST (05/20/2000) Analysis Performed At Patho logist Time Signature Alkaline 113 40 - 150 [facility] Phosphatase U/L ALT 383 (A) 0 - 70 U/L [facility] Amylase 273 (A) 30 - 110 [facility] [place] U/L AST 86 (A) 0 - 55 U/L [facility] Bilirubin Direct 0.7 (A) 0.0 - 0.5 [facility] [place] MG/DL Bilirubin Total 1.6 0.0 - 1.6 [facility] [place] MG/DL Specimen (Source) Anatomical Location Collection Method / Collectio n Time Received Time / Laterality Volume 05/20/2000 Narrative [facility] - 05/20/2000 Abstracted from paper copy. Provider Abstract LABORATORY Performing Organization Address [facility]/ZIP [facility] Phon e Number [facility] (ABNORMAL) WBC (05/20/2000) P athologist Signature WBC [...]
--- OUTSIDE RECORDS SUMMARY | 2022-08-10 09:43 | XMS_ITS | Encounter Summary ---
:1945 Author Organization [place] Address [address] [place] [address] Care Team Providers Name Role Phone Bailey Doran MD Primary Care Provider Reason for Visit Reason Comments Results Encounter Details Date Type Department Care Team Description 11/02/2000 Office Visit [facility] Bailey Doran, MIXED HYPERLIPIDEMIA; Physicians DIABETES UNCOMPL ADULT-TYPE II [address] , [address] [address] [phone] Social History Tobacco Use Types Packs/Day Years Used Date Smoking Tobacco: Former Cigarettes 0.5 16 Quit : 09/06/1978 Alcohol Use Standard Drinks/Week Comments Yes 10 (1 standard drink = 0.6 oz pure alcoh ol) Sex Assigned at Date Recorded 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 documented as of this encounter Last Filed Vital Signs Vital Sign Reading Time Taken Comments Blood Pressure 136/74 11/02/2000 5:30 PM RACE AND SPORTS BOOK WRITER Pulse - - Temperature - - Respiratory Rate - - Oxygen Saturation - - Inhaled Oxygen Concentration - - Weight 84.8 kg (187 lb) 11/02/2000 5:30 PM RACE AND SPORTS BOOK WRITER Height - - Body Mass Index 26.83 10/27/2000 9:00 AM RACE AND SPORTS BOOK WRITER documented in this encounter Progress Notes 11/02/2000 5:30 PM RACE AND SPORTS BOOK WRITER SUBJECTIVE: Reviewed lab work with glucose elevated [...] uncontrolled documented in this encounter Care Teams Trolley Cleaner Relationship Specialty Start Date End Date Bailey Doran MD PCP - General 09/20/00 03/25/[address], [place] [address] [place] [address] documented as of this encounter
--- OUTSIDE RECORDS SUMMARY | 2022-08-10 09:43 | XMS_ITS | Encounter Summary ---
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 Plan of [...] Provider Abstract LABORATORY Performing Organization Address City/[facility] Phon e Number [facility] (ABNORMAL) CLINICAL CHEMISTRY TEST (05/21/2000) P athologist Signature ALT 233 (A) 0 - 70 U/L [facility] AST 32 0 - 55 U/L [facility] Calcium 7.9 (A) 8.5 - 10.4 [facility] MG/DL Creatinine 0.8 0.8 - 1.7 [facility] MG/DL Glucose 179 (A) 60 - 115 [facility] MG/DL Urea Nitrogen 6 (A) 7 - 30 [facility] MG/DL Specimen (Source) Anatomical Location Collection Method / Collectio n Time Received Time / Laterality Volume 05/21/2000 Narrative [facility] - 05/21/2000 Abstracted from paper copy. Provider Abstract LABORATORY Performing Organization Address [facility] Phon e Number [facility] (ABNORMAL) HEMOGRAM W/O PLATELET COUNT (05/21/2000) [...] Address City/[facility]/ZIP Code Phon e Number [facility] documented in this encounter Visit Diagnoses Diagnosis ABSTRACTING RESULTS - Primary documented in this encounter
--- OUTSIDE RECORDS SUMMARY | 2022-08-10 09:43 | XMS_ITS | Encounter Summary ---
:1945 Author Organization [place] Address [facility] [place] [address] Care Team Providers Name Role Phone Andrey Tamez MD Primary Care Provider Bailey Doran MD Primary Care Provider Andrey Tamez MD Unavailable Andrey Tamez MD Unavailable Encounter Details Date Type Department Care Team Description [facility] Physicians MD GALVIN HX-CARDIOVAS DIS NEC; [address] [place], [place] [address] [place] [address] DIABETES UNCOMPL ADULT-TYPE II [address] [place] [address] [place], [place] [phone] (Wo rk) [address] [phone] Social History Tobacco Use Types Packs/Day Years Used Date Smoking Tobacco: Former Cigarettes 0.5 16 Quit : 09/06/1978 Smokeless Tobacco: Never Alcohol Use Standard Drinks/Week Comments Yes 10 (1 standard drink = 0.6 oz pure alcoh ol) A drink every 1-2 weeks. 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 documented as of this encounter Progress Notes 11/12/2000 11:59 PM FOOD AND BEVERAGE OPERATIONS MANAGER Stress Echo for cholesterol, diabetes, family history [...] uncontrolled documented in this encounter Care Teams Track Oiler Relationship Specialty Start Date End Date Andrey Tamez MD PCP - General 03/26/09 Bailey Doran MD PCP - General 09/20/00 03/25/[address], [place] [address] [place], [place] [phone] Andrey Tamez MD PCP - Assigned PCP 09/11/12 11/08/18 [address] [place], [place] [address] Andrey Tamez MD Assigned PCP 09/11/12 09/07/20 [address] [place] [address] documented as of this encounter
--- OUTSIDE RECORDS SUMMARY | 2022-08-10 09:43 | XMS_ITS | Encounter Summary ---
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 range= 6-17 MMOL/L) *no component in computer Abstracted from paper copy. Provider Abstract LABORATORY Performing Organization Address City/State/ZIP Code Phon e Number [facility] (ABNORMAL) CLINICAL CHEMISTRY TEST (05/18/2000) [facility] gist Method Time Signature Alkaline 151 (A) 40 - 150 [facility] Phosphatase U/L ALT 873 (A) 0 - 70 U/L [facility] Amylase 2665 (A) 30 - 110 [facility] [place] U/L AST 781 (A) 0 - 55 U/L [facility] [facility] [facility] Bilirubin Total 4.4 (A) 0.0 - 1.6 [facility] [place] [place] MG/DL Calcium 9.1 8.5 - 10.4 [facility] [facility] MG/DL Creatinine 9.1 [facility] [place] [facility] Glucose 220 (A) 60 - 115 [facility] [place] MG/DL Albumin 3.9 3.3 - 4.6 [facility] [facility] G/DL Urea Nitrogen 15 7 - 30 [facility] MG/DL Specimen (Source) Anatomical Location Collection Method / Collectio n Time Received Time / Laterality Volume 05/18/2000 Narrative [facility] [place] - 05/18/2000 Abstracted from paper copy. Provider Abstract LABORATORY Performing Organization Address City/[facility]/ZIP Code Phon e Number ADAM MARTINEZ URINALYSIS (05/18/2000) [facility] Signature Color Urine yellow [facility] Appearance Urine clear [facility] Glucose Urine 500 [facility] Bilirubin Urine neg [facility] Ketones Urine 15 [facility] Specific [place] 1.015 [facility] Blood Urine neg [facility] [...] Number [facility] (ABNORMAL) AUTO HEMOGRAM/PLATE/DIFF (05/18/2000) [facility] gist Method Time Signature WBC 14.5 [...]
--- OUTSIDE RECORDS SUMMARY | 2022-08-10 09:43 | XMS_ITS | Encounter Summary ---
:1945 Author Organization [place] Address [address] [place] [address] Care Team Providers Name Role Phone Bailey Doran MD Primary Care Provider Reason for Visit Reason Comments forms [facility] Encounter Details Date Type Department Care Team Description 02/16/2002 Telephone [facility], ( [facility] [address] [facility] [address] XXX RETIRED XXX [address] [place], [place] [address] [place], [place] [phone] (Wo rk) Social History Tobacco Use Types Packs/Day Years Used Date Smoking Tobacco: Former Cigarettes 0.5 16 Quit : 09/06/1978 Alcohol Use Standard Drinks/Week Comments Yes 10 (1 standard drink = 0.6 oz pure alcoh ol) Sex Assigned at Date Recorded 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 Contact: GAVE FORM TO NURSES documented in this encounter Plan of Treatment Not on filedocumented as of this encounter Visit Diagnoses Not on filedocumented in this encounter Care Teams Armature Repairer Relationship Specialty Start Date End Date Bailey Doran MD PCP - General 09/20/00 03/25/09 [address] , [facility] [address] [place] [address] documented as of this encounter
--- OUTSIDE RECORDS SUMMARY | 2022-08-10 09:43 | XMS_ITS | Encounter Summary ---
:1945 Author Organization [place] Address [facility] [place] [address] Care Team Providers Name Role Phone Bailey Doran MD Primary Care Provider Reason for Referral - Closed Specialty Diagnoses / Procedures Referred By Contact Refer red To Contact Family Practice Diagnoses Routine general medical examination at a health care facility Bailey Doran MD [place], Barry Alan, [address], [facility] [id number] [place] [address] [place] [address] Fax: Referral ID Status Reason Start Date Expiration Date Visits Requ ested Visits Authorized [id number] Closed 10/27/2000 09/05/2011 1 1 TROENCEPHALOGRAPH TECHNICIAN Reason for Visit Reason Comments Physical Encounter Details Date Type Department Care Team Description 10/27/2000 Office Visit [place] Bailey Branham ROUTIN E MEDICAL EXAM (Primary Dx); Physicians PANCREATIC DISORDER NOS; [address], VACCINE FOR TETANUS + DIPHTH [place]; [address] [place] [address] [facility] [place] [address] [phone] Social History Tobacco Use Types Packs/Day Years Used Date Smoking Tobacco: Former Cigarettes 0.5 16 Quit : 09/06/1978 Alcohol Use Standard Drinks/Week Comments Yes 10 (1 standard drink = 0.6 oz pure alcoh ol) Sex Assigned at Date Recorded Male 10/03/2020 10:26 AM 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 documented as of this encounter Last Filed Vital Signs Vital Sign Reading Time Taken Comments Blood Pressure 134/82 10/27/2000 9:00 AM 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 Pulse 78 10/27/2000 9:00 AM 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 Temperature 36.7 ??C (98 ??F) 10/27/2000 9:00 AM 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 Respiratory Rate - - Oxygen Saturation - - Inhaled Oxygen Concentration - - Weight 83.7 kg (184 lb 8 oz) 10/27/2000 9:00 AM 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 Height 177.8 cm (5' 10) 10/27/2000 9:00 AM 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 Body Mass Index 26.47 10/27/2000 9:00 AM 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 documented in this encounter Progress Notes 10/27/2000 9:00 AM 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 Chief Complaint: Rodolfo Quevedo is a 55 [...] TO FAMILY PRACTICE [[id number]] Order # : [id number] Class: External referral for stress ECHO. TD IMMUNIZATION,IM/JET [[id number]] Order #: [id number] Cl ass: Normal documented in this encounter [...] Routine Medical Results for this (TUMOR MARKER) 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 Exam procedure are in the results section. HCL GLYCATED Routine 10/28/2000 1:46 AM Abn Glucose Toleran Re sults for this HEMOGLOBIN 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 Test procedure are i n the results section. HCL HEPATIC PANEL Routine 10/28/2000 12:55 AM Pancreatic Disor yelitza Results for this 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 Nos procedure are in Routine Medical the results Exam section. HCL LIPID PANEL Routine 10/28/2000 12:55 AM Routine Medical Re sults for this 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 Exam procedure are i n the results section. HCL AMYLASE, SERUM Routine 10/28/2000 12:43 AM Pancreatic Diso rder Results for this 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 Nos procedure are in Routine Medical the results Exam section. HCL URINALYSIS Routine 10/27/2000 10:32 AM Routine Medical Res ults for this NONAUTO W/O SCOPE 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 Exam procedure are in [facility] the results section. CL AFF GLUCOSE, Routine 10/27/2000 10:03 AM Routine Medical Re sults for this FASTING 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 Exam procedure are i n the results section. ZZCL AFF HEMOGLOBIN Routine 10/27/2000 10:03 AM Routine Medica l Results for this 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 Exam procedure are i n the results section. HC VENOUS COLLECTION Routine 10/27/2000 9:29 AM Pancreatic Dis order 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 Nos Routine Medical Exam documented in this encounter Results PSA (10/28/2000 4:04 AM 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) athologist Signature [place] PSA 1.5 0.0 - 4.0 [facility] NG/ML Specimen (Source) Anatomical Location Collection Method / Collectio n Time Received Time / Laterality Volume 10/27/2000 Narrative [facility] - 10/28/2000 4:04 AM 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 PSA RESULTS BETWEEN 4.0 AND 8.0 NG/ML MAY INDICATE BENIGN PROSTATIC HYPERTROPHY OR CANCER OF THE P ROSTATE. RESULTS GREATER THAN 8.0 NG/ML ARE MORE SUGGESTI VE OF PROSTATIC CANCER AND SHOULD BE EVALUATED WITH FOLL OW-UP STUDIES. Bailey Doran MD LABORATORY Performing Organization Address City/[facility] Phon e Number ADAM [place] HEMOGLOBIN A1C (10/28/2000 1:46 AM 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) athologist Signature Hemoglobin A1C 6.3 UPTO7.0% [facility] PERCENT Comment: COMMENT: ?? A HEMOGLOBIN [...] [facility] [place] Phon e Number ADAM [place] (ABNORMAL) A.M.A. LIPID PANEL (10/28/2000 12:55 AM 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) [facility] gist Method Time Signature Comments DNR [facility] Triglycerides 243 (H) 40 - 199 MG/DL [facility] Cholesterol 270 (H) 120 - 199 [facility] MG/DL [place] Cholesterol 87 PERCENTILE [facility] Percentile [place] HDL Cholesterol 37.6 35ORHIGHER [facility] MG/DL [place] LDL Cholesterol 184 (H) 75 - 129 [...] TO SECOND REPORT OF THE NCEP IN [facility] 1993;[id number] FOR GUIDELINES. Cholesterol/HDL Ratio 7.2 (H) 3.9 - 6.5 [facility] [place] Specimen (Source) Anatomical Location Collection Method / Collectio n Time Received Time / Laterality Volume 10/27/2000 Bailey Doran MD LABORATORY Performing Organization Address City/State/ZIP Code Phon e Number [facility] A.M.A. HEPATIC PANEL (10/28/2000 12:55 AM 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) athologist Signature Comments DNR [facility] Protein Total 6.8 6.2 - 8.2 [facility] GM/DL Albumin 4.7 3.7 - 5.2 [facility] GM/DL Globulin 2.1 1.9 - 3.6 [facility] Calculated GM/DL A/G Ratio 2.2 1.1 - 2.3 [facility] Bilirubin Total 0.63 0.30 - [facility] 1.40 MG/DL Bilirubin Direct 0.09 0.04 - [facility] 0.20 MG/DL Alkaline 78 43 - 145 [facility] Phosphatase U/L AST 13 1 - 45 [facility] IU/L ALT 20 1 - 55 [facility] IU/L DNR 0.54 [facility] Specimen (Source) Anatomical Location Collection Method / Collectio n Time Received Time / Laterality Volume 10/27/2000 Bailey Doran MD LABORATORY Performing Organization Address City/[facility]/ZIP [facility] Phon e Number [facility] AMYLASE, SERUM (10/28/2000 12:43 AM 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) athologist Signature Amylase 36 0 - 100 U/L [facility] Specimen (Source) Anatomical Location Collection Method / Collectio n Time Received Time / Laterality Volume 10/27/2000 Bailey Doran MD LABORATORY Performing Organization Address [facility] Phon e Number ADAM MARTINEZ URINALYSIS NONAUTO W/O SCOPE (10/27/2000 10:32 AM 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) athologist Signature Glucose Urine neg neg - neg [facility] mg/dL Albumin Urine neg neg - neg [facility] mg/dL Specimen (Source) Anatomical Collection Method Collection Time Re ceived Time Location / / Volume Laterality 10/27/2000 10:32 AM 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 Bailey Doran MD LABORATORY Performing Organization Address City/[facility] Phon e Number [facility] (ABNORMAL) GLUCOSE, FASTING (10/27/2000 10:03 AM 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) athologist Signature Glucose 128 (A) 60 - 120 [facility] mg/dL Specimen (Source) Anatomical Collection Method Collection Time Re ceived Time Location / / Volume Laterality 10/27/2000 10:03 AM 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 Bailey Doran MD LABORATORY Performing Organization Address City/State/ZIP Code Phon e Number [facility] HEMOGLOBIN (10/27/2000 10:03 AM 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) athologist Signature Hemoglobin 16.7 14 - 18 [facility] GM/DL Specimen (Source) Anatomical Collection Method Collection Time Re ceived Time Location / / Volume Laterality 10/27/2000 10:03 AM 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 Bailey Doran MD LABORATORY Performing Organization Address City/State/ZIP Code Phon e Number [facility] documented in this encounter Visit Diagnoses Diagnosis Routine general medical examination at a health care facility - Primary 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
--- OUTSIDE RECORDS SUMMARY | 2022-08-10 09:43 | XMS_ITS | Encounter Summary ---
:1945 Author Organization [place] Address [address] [place] [address] Care Team Providers Name Role Phone Bailey Doran MD Primary Care Provider Encounter Details Date Type Department Care Team Description 11/22/2001 Telephone [facility] ysicians Bailey Doran MD [address] [place] [address] [address] [address] [place] [address] [place] [address] (Wo rk) Social History Tobacco Use Types Packs/Day Years Used Date Smoking Tobacco: Former Cigarettes 0.5 16 Quit : 09/06/1978 Alcohol Use Standard Drinks/Week Comments Yes 10 (1 standard drink = 0.6 oz pure alcoh ol) Sex Assigned at Date Recorded Male 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 Contact: Pharmacy calling for refill on Pt's lipitor. Pt was informed back in oct to make an appt for fasting labs. Rx denied. documented in this encounter Plan of Treatment Not on filedocumented as of this encounter Visit Diagnoses Not on filedocumented in this encounter Care Teams Geology Scientist Relationship Specialty Start Date End Date Bailey Doran MD PCP - General 09/20/00 03/25/[address], [place] [address] [place] [address] documented as of this encounter
--- OUTSIDE RECORDS SUMMARY | 2022-08-10 09:43 | XMS_ITS | Encounter Summary ---
:1945 Author Organization [place] Address [address] [place] [address] Care Team Providers Name Role Phone Bailey Doran MD Primary Care Provider Reason for Visit Reason Comments Results Encounter Details Date Type Department Care Team Description 11/01/2000 Telephone [facility] ysicians Bailey Doran MD Results [address] [place] [address] [address] [place] [address] [address] [place] [address] [place] [address] (Wo rk) Social History Tobacco Use Types Packs/Day Years Used Date Smoking Tobacco: Former Cigarettes 0.5 16 Quit : 09/06/1978 Alcohol Use Standard Drinks/Week Comments Yes 10 (1 standard drink = 0.6 oz pure alcoh ol) Sex Assigned at Date Recorded Male 10/03/2020 10:[address] LIAISON documented as of this encounter Miscellaneous Notes Telephone Encounter - 11/01/2000 11:[address] LIAISON Called pt. and told him that he [...] result numbers. His wor k number is [phone]. - Juliana Larson Started and completed on WedNov 01, 2000 8:59 AM documented in this encounter Plan of Treatment Not on filedocumented as of this encounter Visit Diagnoses Not on filedocumented in this encounter Care Teams Stores Despatch Hand Relationship Specialty Start Date End Date Bailey Doran MD PCP - General 09/20/00 03/25/09 [address] [facility] 100 [place] [address] documented as of this encounter
--- NOTE | 2022-08-10 09:45 | CRLHL7_ITS ---
For Patients: As a result of the Cures Act, medical imaging exams and procedure reports are released immediately into your electronic medical record. You may view this report before your referring provider. If you have questions, please contact your health care provider. INDICATION: Thyroid fullness, follow-up nodule on CT COMPARISON: CT 07/09/2022 TECHNIQUE: Dobbins scale and color Doppler images were acquired of the thyroid gland. FINDINGS: Lobular hypoechoic nodule with punctate echogenic foci right thyroid lobe measuring 1.7 x 1.5 x 1.7 cm. Primarily solid hypoechoic nodule lower pole right thyroid lobe with a small cystic component measuring 2.2 x 1.3 x 2.2 cm. The right lobe measures 6.0 x 3.1 x 2.8 cm and the left lobe measures 5.1 x 1.2 x 1.4 cm in size. There are no suspicious masses or nodules. The color Doppler images demonstrate normal vascularity. There is no evidence of cervical lymphadenopathy or parathyroid mass. IMPRESSION: 1.7 cm TR 5 nodule midportion right thyroid lobe. FNA recommended. 2.2 cm TR 4 nodule lower pole right thyroid lobe. Follow-up recommendations are pending the results of the above nodule. Dictated by Yazan Mireles MD @ 08/10/2022 10:35:11 AM (Electronically Signed)
== END 2022-08-10 09:23 | disposition home or self-care (01) ==
PROVIDERS: PCP Family Medicine; Visit Provider Family Medicine
DX: R94.6 Abnormal results of thyroid function studies (principal)
CPT/HCPCS: 76536

== ENCOUNTER 2022-09-02 09:44 | Outpatient (CLI) | payer OTHER, SELFPAY ==
--- NOTE | 2022-09-02 10:15 | CRLHL7_ITS ---
For Patients: As a result of the Century Cures Act, medical imaging exams and procedure reports are released immediately into your electronic medical record. You may view this report before your referring provider. If you have questions, please contact your health care provider. INDICATION : Right thyroid lobe nodule TECHNIQUE : Ultrasound-guided fine needle aspiration of thyroid nodule. Comparison: 08/10/2022 FINDINGS : PROCEDURE: After the informed consent and time-out, multiple fine needle aspirations were obtained from the thyroid nodule. Fine needle performed. 25 gauge needles were used. During the exam, both of the right thyroid lobe nodules appear to represent 1 larger nodule and therefore samples of the entire nodular area was performed. Lidocaine was used for local anesthesia. The preliminary cytology was adequate for interpretation. Real-time imaging was used for guidance and needle placement. Post imaging ultrasound demonstrates no immediate complication. IMPRESSION : Successful fine needle aspiration of right thyroid nodule. Dictated by Yazan Mireles MD @ 09/02/2022 11:38:47 AM (Electronically Signed)
== END 2022-09-02 09:45 | disposition home or self-care (01) ==
LOC: US 09:44
PROVIDERS: PCP Family Medicine; Visit Provider Family Medicine
DX: R94.6 Abnormal results of thyroid function studies (principal)
CPT/HCPCS: 10005; 88173

== ENCOUNTER 2023-01-04 09:15 | Outpatient (CLI) | payer OTHER, SELFPAY | END 2023-01-04 09:16 | disposition home or self-care (01) | LOC: NFLDREF 01-05 10:43 | PROVIDERS: PCP Family Medicine; Referring Provider Family Medicine; Visit Provider Family Medicine | DX: Z00.00 Encounter for general adult medical examination without abnormal findings (principal); D64.9 Anemia, unspecified; E78.5 Hyperlipidemia, unspecified; I10 Essential (primary) hypertension; E11.9 Type 2 diabetes mellitus without complications; L57.0 Actinic keratosis; Z12.5 Encounter for screening for malignant neoplasm of prostate | CPT/HCPCS: 80048; 80061; 82043; 82570; 84153 ==

== ENCOUNTER 2023-09-23 08:31 | Outpatient (CLI) | payer OTHER, SELFPAY ==
--- OUTSIDE RECORDS SUMMARY | 2023-09-23 08:34 | XMS_ITS | Referral Summary ---
Author Name Unknown Organization [facility] Address [address] [place] [address] Care Team Providers Care Ladle Cleaner Name Role Phone Andrey Tamez MD Primary Care Provider [phone] Allergies Active Allergy Reactions Criticality Noted Date Comments No Known Drug Allergy 10/27/2000 Medications Medication Sig Dispensed Refills Start Date End Date Status ASPIRIN NOT PRESCRIBED, INTENTIONAL,Indicat ions:CAD (coronary artery disease) by Other route continuous prn. 0 12/10/2010 Active blood glucose (PEPE CONTOUR) STRP test stripIndications:Ty pe 2 diabetes, HbA1C goal < 8% (H) Use to test blood sugars once daily or as directed. 100 strip 0 01/31/2014 Active Additional Information Patient not taking.Reported on 07/07/2017 blood glucose monitoring (ACCU-CHEK SILVIA PLUS) test stripIndications:Ty pe 2 diabetes mellitus with other circulatory complications (H) Use to test blood sugar 1 times daily or as directed. 100 each 0 10/05/2016 Active order for DME Equipment being ordered: All diabetic supplies including meter, test strips, lancets and solution for testing two times per day. Use brand covered by insurance. Profile Rx: patient will contact pharmacy when needed 3 Month 1 10/14/2016 Active blood glucose monitoring (NO BRAND SPECIFIED) meter device kitIndications:Type 2 diabetes mellitus with other circulatory complication, without long-term current use of insulin (H) Previously has used Accu-Chek. Use to test blood sugar once daily or as directed. 1 kit 1 09/07/2017 Active blood glucose monitoring (NO BRAND SPECIFIED) test stripIndications:Ty pe 2 diabetes mellitus with other circulatory complication, without long-term current use of insulin (H) Use to test blood sugars once daily or as directed 100 strip 3 09/07/2017 Active simvastatin (ZOCOR) 40 MG tabletIndications:H yperlipidemia LDL goal <100 TAKE ONE TABLET BY MOUTH AT BEDTIME . may take every other day if muscle aches 90 tablet 1 04/22/2018 Active ramipril (ALTACE) 10 MG capsuleIndications: Coronary artery disease involving [place] coronary artery of [place] heart, angina presence unspecified TAKE ONE CAPSULE BY MOUTH TWICE DAILY 180 capsule 1 04/22/2018 Active clopidogrel (PLAVIX) 75 MG tabletIndications:C oronary artery disease involving [place] coronary artery of [place] heart, angina presence unspecified TAKE ONE TABLET BY MOUTH ONE TIME DAILY 90 tablet 1 04/22/2018 Active metoprolol tartrate (LOPRESSOR) 100 MG tabletIndications:C oronary artery disease involving [place] coronary artery of [place] heart, angina presence unspecified TAKE ONE TABLET BY MOUTH TWICE DAILY 180 tablet 1 04/22/2018 Active metFORMIN (GLUCOPHAGE) 500 MG tabletIndications:T ype 2 diabetes mellitus with other circulatory complication, without long-term current use of insulin (H) TAKE ONE TABLET THREE TIMES A DAY WITH MEALS. 270 tablet 0 04/27/2018 Active blood glucose (ACCU-CHEK SMARTVIEW) test stripIndications:Ty pe 2 diabetes mellitus with other circulatory complication, without long-term current use of insulin (H) Check glucose once daily. Need to schedule office visit with Dr Dashawn MILLS. 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 Type 2 diabetes mellitus wit h circulatory disorder, without long-term current use of insulin 06/24/2015 Advanced directives, counseling/discussion 02/07 Overview: Information given to pt to take home and review. 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 Provider to review HYPERLIPIDEMIA LDL GOAL <100 07/06/2010 CAD (coronary artery disease) Resolved Problems Problem Noted Date Diagnosed Date Resolved Date Type 2 diabetes mellitus wit h circulatory disorder 07/06/2010 06/24/2015 Erectile dysfunction 06/10/2010 010 Mixed hyperlipidemia 011 Diabetes mellitus, type 2 Overview: Problem list name updated by automated process. Provider to review Hyperlipidemia 12/10/2010 Overview: Problem list name updated by automated process. Provider to review Immunizations Name Administration Dates Next Due COVID-19 MONOVALENT 12+ (Pfizer) 10/24/2020,09/07 Influenza (High Dose) 3 valent vaccine 8,07/08/2013 Influenza (IIV3) PF 07/03/2002 Pneumococcal 23 valent 02/19/2011 TD,PF 7+ (Tenivac) 10/27/2000 10/27/2010 TDAP Vaccine (Adacel) 02/19/2011 Zoster vaccine, live 06/02/2014 Social History Tobacco Use Types Packs/Day Years Used Date Smoking Tobacco: Former Cigarettes 0.5 16 Q uit: 09/06/1978 Smokeless Tobacco: Never Tobacco Cessation:Counseling Given: No Alcohol Use Standard Drinks/Week Comments Yes 10 (1 standard drink = 0.6 oz pu re alcohol) A drink every 1-2 weeks. PHQ-2 Answer Date Recorded PHQ-2 Score 0 09/13/2018 Adolescent Education Answer Date Record ed Getting School Help Needed Not on file 06/12 Sex and Gender Information Value Date Recorded Sex Assigned at Male 10/03/2020 10:[address] CLERK Gender Identity Male 10/03/2020 10:[address] CLERK Sexual Orientation Straight 10/03/2020 10 :[address] CLERK Last Filed Vital Signs Vital Sign Reading Time Taken Comments Blood Pressure 136/70 09/07/2017 8:[address] CLERK Pulse 71 09/07/2017 8:[address] CLERK Temperature 36.7 ??C (98.1 ??F) 09/07/2017 8:13 AM CS T Respiratory Rate 12 02/07/2016 9:09 AM CDT Oxygen Saturation 100% 09/07/2017 8:[address] CLERK Inhaled Oxygen Concentration - - Weight 80.7 kg (178 lb) 09/07/2017 8:[address] CLERK Height 176 cm (5' 9.29) 09/07/2017 8:[address] CLERK Body Mass Index 26.07 09/07/2017 8:[address] CLERK Plan of Treatment Not on file Care Teams Ladle Cleaner Relationship Specialty Start Date End Date Andrey Tamez MD PCP - General 03/26/09
--- OUTSIDE RECORDS SUMMARY | 2023-09-23 08:34 | XMS_ITS | Clinical Summary ---
Author Name Unknown Organization [facility] Address [address] [place] [address] Care Team Providers Care Press Hand Supervisor Name Role Phone Andrey Tamez MD Primary Care Provider [phone] Allergies Active Allergy Reactions Criticality Noted Date [...] 10 MG capsuleIndications: Coronary artery disease involving [place] coronary artery of [place] heart, angina presence unspecified TAKE ONE CAPSULE BY MOUTH TWICE DAILY 180 capsule 1 04/22/2018 Active clopidogrel (PLAVIX) 75 MG tabletIndications:C oronary artery disease involving [place] coronary artery of [place] heart, angina presence unspecified TAKE ONE TABLET BY MOUTH ONE TIME DAILY 90 tablet 1 04/22/2018 Active metoprolol tartrate (LOPRESSOR) 100 MG tabletIndications:C oronary artery disease involving [place] coronary artery of [place] heart, angina presence unspecified TAKE ONE TABLET [...] oneal 02/07/2016 Coronary artery disease invo lving [place] coronary artery of [place] heart, angina presence unspecified 10/18/2015 Overview: Replacing [...] with cystoscopy Respiratory Father age 86, had emphysema Diabetes Mother type 2 Gastrointestinal Disease Mother gallbla dder Heart Disease Mother age 74, had kidney failure, heart/liver problems. 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 Gender Identity Male 10/03/2020 10:26 AM ORACLE EBS ARCHITECT Sexual Orientation Straight 10/03/2020 10 :26 AM ORACLE EBS ARCHITECT Last Filed Vital Signs Vital Sign Reading Time Taken Comments Blood Pressure 136/70 09/07/2017 8:13 AM ORACLE EBS ARCHITECT Pulse 71 09/07/2017 8:13 AM ORACLE EBS ARCHITECT Temperature 36.7 ??C (98.1 ??F) 09/07/2017 8:13 AM CS T Respiratory Rate 12 02/07/2016 9:09 AM CDT Oxygen Saturation 100% 09/07/2017 8:13 AM ORACLE EBS ARCHITECT Inhaled Oxygen Concentration - - Weight 80.7 kg (178 lb) 09/07/2017 8:13 AM ORACLE EBS ARCHITECT Height 176 cm (5' 9.29) 09/07/2017 8:13 AM ORACLE EBS ARCHITECT Body Mass Index 26.07 09/07/2017 8:13 AM ORACLE EBS ARCHITECT Plan of Treatment Health Maintenance Due Date Last Done Comments ANNUAL REVIEW OF HM ORDERS 1945 HEPATITIS C SCREENING 1963 LUNG CANCER SCREENING 1995 RSV VACCINE ( & 60+) (1 - 1-dose 60+ series) 2005 ZOSTER IMMUNIZATION (2 of 3) 07/28/2014 06/02/2014 DIABETIC FOOT EXAM 02/06/2017 02/07/2016, 02/07/2016 FALL RISK ASSESSMENT 07/07/2018 07/07/2017, 02/07/2016, 02/07/2015, Additional history exists MEDICARE ANNUAL WELLNESS VISIT 09/07/2018 09/07/2017, 10/27/2000 EYE EXAM 10/18/2018 10/18/2017 A1C 10/29/2018 04/28/2018, 10/2017, 06/18/2017, Additional history exists BMP 04/28/2019 04/28/2018, 0 10/2017, 06/18/2017, Additional history exists LIPID 04/28/2019 04/28/2018, 0 10/2017, 06/18/2017, Additional history exists MICROALBUMIN 04/28/2019 04/28/2018, 11/2015, 01/24/2015, Additional history exists ADVANCE CARE PLANNING 02/08/2020 02/07/2015, 015 DTAP/TDAP/TD IMMUNIZATION (2 - Td or Tdap) 02/19/2021 02/19/2011, 10/27/2000, 10/27/2000 COVID-19 Vaccine ( season) 2023 10/24/2020, 10/03/2020 INFLUENZA VACCINE (#1) 2023 0, 06/19/2019, 05/26/2018, Additional history exists PHQ-2 (once per calendar year) 2023 09/07/2017, 07/07/2017, 02/07/2016 COLONOSCOPY Discontinued 10/26/2011, 10/26/2011 COLORECTAL CANCER SCREENING Discontinued Pneumococcal Vaccine: 65+ Years Completed 10/17/2018, 02/19/2011 CT COLONOGRAPHY Discontinued FIT Discontinued FLEX SIG Discontinued HPV IMMUNIZATION Aged Out No longer e ligible based on patient's age to complete this topic IPV IMMUNIZATION Aged Out No longer e ligible based on patient's age to complete this topic MENINGITIS IMMUNIZATION Aged Out No l onger eligible based on patient's age to complete this topic RSV MONOCLONAL ANTIBODY Aged Out No l onger eligible based on patient's age to complete this topic sDNA (Cologuard) Discontinued Care Teams Press Hand Supervisor Relationship Specialty Start Date End Date Andrey Tamez MD [facility] - General 03/26/09
--- OUTSIDE RECORDS SUMMARY | 2023-09-23 08:35 | XMS_ITS | Encounter Summary ---
Author Name Unknown Organization [facility] Address [address] [place] [address] Care Team Providers Care Blower Mechanic Name Role Phone Andrey Tamez MD Primary Care Provider [phone] Andrey Tamez MD Unavailable [phone] Andrey Tamez MD Unavailable [phone] Reason for Visit * Reason Comments Medication Refill ACCU-CHEK SMARTVIEW test strip Encounter Details Date Type Department Care Team (Late st Contact Info) Description [facility] [address] [facility] [address] [place] [address] Andrey Tamez MD [address] [place] [address] Medication Refill (ACCU-CHEK SMARTVIEW test strip) Social History Tobacco Use Types Packs/Day Years Used Date Smoking Tobacco: Former Cigarettes 0.5 16 Q uit: 09/06/1978 Smokeless Tobacco: Never Alcohol Use Standard Drinks/Week Comments Yes 10 (1 standard drink = 0.6 oz pu re alcohol) A drink every 1-2 weeks. PHQ-2 Answer Date Recorded PHQ-2 Score 0 09/13/2018 Sex and Gender Information Value Date Recorded Sex Assigned at Male 10/03/2020 10:26 AM PILOT STEAM YACHT Gender Identity Male 10/03/2020 10:26 AM PILOT STEAM YACHT Sexual Orientation Straight 10/03/2020 10 :26 AM PILOT STEAM YACHT documented as of this encounter Miscellaneous Notes * Telephone Encounter - Nathalie Jefferson RN - 10/12/2018 3:47 PM PILOT STEAM YACHT Routing refill request to provider for review/approval because: Patient needs to be seen because it has been more than 1 year since last office visit. T STEAM YACHT * Telephone Encounter - Betty Choe - 10/10/2018 [...] Columns in Meds & Orders section of therefill encounter. 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
--- OUTSIDE RECORDS SUMMARY | 2023-09-23 08:35 | XMS_ITS | Encounter Summary ---
Author Name Unknown Organization [facility] Address [address] [place] [address] Care Team Providers Care Job Honer Name Role Phone Andrey Tamez MD Primary Care Provider [phone] Andrey Tamez MD Unavailable [phone] Andrey Tamez MD Unavailable [phone] Reason for Visit * Reason Onset Date Comments Pending Orders/need approval 03/21/2012 LAB ORDERS Encounter Details Date Type Department Care Team (Late st Contact Info) Description 03/21/2012 Telephone [facility] [address] [place] [address] Andrey Tamez MD [address] [facility] [address] [place] [address] Pending Orders/need approval (LAB ORDERS) Social History Tobacco Use Types Packs/Day Years Used Date Smoking Tobacco: Former Cigarettes 0.5 16 Q uit: 09/06/1978 Smokeless Tobacco: Never Alcohol Use Standard Drinks/Week Comments Yes 10 (1 standard drink = 0.6 oz pu re alcohol) A drink every 1-2 weeks. Sex and Gender Information Value Date Recorded Sex Assigned at Male 10/03/2020 10:26 AM HEALTHCARE RECRUITER Gender Identity Male 10/03/2020 10:26 AM HEALTHCARE RECRUITER Sexual Orientation Straight 10/03/2020 10 :26 AM HEALTHCARE RECRUITER documented as of this encounter Plan of Treatment Not on file documented as of this encounter Visit Diagnoses Diagnosis Type 2 diabetes, HbA1C goal < 8% (H)- Primary Type II or unspecified type diabetes mellitus without mention of complication, not stated as uncontrolled documented in this encounter Care Teams Job Honer Relationship Specialty Start Date End Date Andrey Tamez MD PCP - General 03/26/09 Andrey Tamez MD [address] [place] [address] PCP - Assigned PCP 09/11/12 11/08/18 Andrey Tamez MD [address] [place] [address] Assigned PCP 09/11/12 09/07/20 documented as of this encounter
--- OUTSIDE RECORDS SUMMARY | 2023-09-23 08:35 | XMS_ITS | Encounter Summary ---
Author Name Unknown Organization [facility] Address [address] [place] [address] Care Team Providers Care Automatic Lathe Operator Name Role Phone Andrey Tamez MD Primary Care Provider [phone] Andrey Tamez MD Unavailable [phone] Andrey Tamez MD Unavailable [phone] Encounter Details Date Type Department Care Team (Late st Contact Info) Description 07/07/2017 [facility] Medical Advice [facility] [address] [facility] [address] [place] [address] Andrey Tamez MD [address] [facility] 160 [place] [address] Social History Tobacco Use Types Packs/Day Years Used Date Smoking Tobacco: Former Cigarettes 0.5 16 Q uit: 09/06/1978 Smokeless Tobacco: Never Alcohol Use Standard Drinks/Week Comments Yes 10 (1 standard drink = 0.6 oz pu re alcohol) A drink every 1-2 weeks. Sex and Gender Information Value Date Recorded Sex Assigned at Male 10/03/2020 10:26 AM INVESTIGATOR INTERNAL AFFAIRS Gender Identity Male 10/03/2020 10:26 AM INVESTIGATOR INTERNAL AFFAIRS Sexual Orientation Straight 10/03/2020 10 :26 AM INVESTIGATOR INTERNAL AFFAIRS documented as of this encounter Plan of Treatment Not on file documented as of this encounter Visit Diagnoses Not on filedocumented in this encounter Care Teams Automatic Lathe Operator Relationship Specialty Start Date End Date Andrey Tamez MD PCP - General 03/26/09 Andrey Tamez MD [address] [address] PCP - Assigned PCP 09/11/12 11/08/18 Andrey Tamez MD [address] [address] Assigned PCP 09/11/12 09/07/20 documented as of this encounter
--- OUTSIDE RECORDS SUMMARY | 2023-09-23 08:35 | XMS_ITS | Encounter Summary ---
Author Name Unknown Organization [facility] Address [address] [place] [address] Care Team Providers Care Head Of Art Name Role Phone Andrey Tamez MD Primary Care Provider [phone] Andrey Tamez MD Unavailable [phone] Andrey Tamez MD Unavailable [phone] Encounter Details Date Type Department Care Team (Late st Contact Info) Description 09/12/2017 [facility] Medical Advice [facility] [address] [facility] [address] [place] [address] Andrey Tamez MD [address] [facility] 160 [place] [address] Social History Tobacco Use Types Packs/Day Years Used Date Smoking Tobacco: Former Cigarettes 0.5 16 Q uit: 09/06/1978 Smokeless Tobacco: Never Alcohol Use Standard Drinks/Week Comments Yes 10 (1 standard drink = 0.6 oz pu re alcohol) A drink every 1-2 weeks. Sex and Gender Information Value Date Recorded Sex Assigned at Male 10/03/2020 10:26 AM FLARE BREAKER Gender Identity Male 10/03/2020 10:26 AM FLARE BREAKER Sexual Orientation Straight 10/03/2020 10 :26 AM FLARE BREAKER documented as of this encounter Plan of Treatment Not on file documented as of this encounter Visit Diagnoses Not on filedocumented in this encounter Care Teams Head Of Art Relationship Specialty Start Date End Date Andrey Tamez MD PCP - General 03/26/09 Andrey Tamez MD [address] [address] PCP - Assigned PCP 09/11/12 11/08/18 Andrey Tamez MD [address] [address] Assigned PCP 09/11/12 09/07/20 documented as of this encounter
--- OUTSIDE RECORDS SUMMARY | 2023-09-23 08:35 | XMS_ITS | Encounter Summary ---
Author Name Unknown Organization [facility] Address [address] [place] [address] Care Team Providers Care Mig Tig Welder Name Role Phone Andrey Tamez MD Primary Care Provider [phone] Andrey Tamez MD Unavailable [phone] Andrey Tamez MD Unavailable [phone] Encounter Details Date Type Department Care Team (Late st Contact Info) Description 02/19/2011 [facility] Medical Advice [facility] [address] [facility] [address] [place] [address] Andrey Tamez MD [address] [facility] [address] [place] [address] Social History Tobacco Use Types Packs/Day Years Used Date Smoking Tobacco: Former Cigarettes 0.5 16 Q uit: 09/06/1978 Alcohol Use Standard Drinks/Week Comments Yes 10 (1 standard drink = 0.6 oz pu re alcohol) A drink every 1-2 weeks. Sex and Gender Information Value Date Recorded Sex Assigned at Male 10/03/2020 10:26 AM GALVANIZER ZINC Gender Identity Male 10/03/2020 10:26 AM GALVANIZER ZINC Sexual Orientation Straight 10/03/2020 10 :26 AM GALVANIZER ZINC documented as of this encounter Plan of Treatment Not on file documented as of this encounter Visit Diagnoses Not on filedocumented in this encounter Care Teams Mig Tig Welder Relationship Specialty Start Date End Date Andrey Tamez MD PCP - General 03/26/09 Andrey Tmaez MD [address] [address] PCP - Assigned PCP 09/11/12 11/08/18 Andrey Tamez MD [address] [address] Assigned PCP 09/11/12 1 documented as of this encounter
--- OUTSIDE RECORDS SUMMARY | 2023-09-23 08:35 | XMS_ITS | Encounter Summary ---
Author Name Unknown Organization [facility] Address [address] [place] [address] Care Team Providers Care Pattern And Chain Maker Name Role Phone Andrey Tamez MD Primary Care Provider [phone] Andrey Tamez MD Unavailable [phone] Andrey Tamez MD Unavailable [phone] Encounter Details Date Type Department Care Team (Late st Contact Info) Description 12/29/2015 My[facility] Medical Advice [facility] [address] [facility] [address] [place] [address] Andrey Tamez MD [address] [facility] 160 [place] [address] Social History Tobacco Use Types Packs/Day Years Used Date Smoking Tobacco: Former Cigarettes 0.5 16 Q uit: 09/06/1978 Smokeless Tobacco: Never Alcohol Use Standard Drinks/Week Comments Yes 10 (1 standard drink = 0.6 oz pu re alcohol) A drink every 1-2 weeks. Sex and Gender Information Value Date Recorded Sex Assigned at Male 10/03/2020 10:26 AM ENTRY LEVEL MECHANICAL ENGINEER Gender Identity Male 10/03/2020 10:26 AM ENTRY LEVEL MECHANICAL ENGINEER Sexual Orientation Straight 10/03/2020 10 :26 AM ENTRY LEVEL MECHANICAL ENGINEER documented as of this encounter Plan of Treatment Not on file documented as of this encounter Visit Diagnoses Not on filedocumented in this encounter Care Teams Pattern And Chain Maker Relationship Specialty Start Date End Date Andrey Tamez MD PCP - General 03/26/09 Andrey Tamez MD [address] [address] PCP - Assigned PCP 09/11/12 11/08/18 Andrey Tamez MD [address] [address] Assigned PCP 09/11/12 09/07/20 documented as of this encounter
--- OUTSIDE RECORDS SUMMARY | 2023-09-23 08:35 | XMS_ITS | Encounter Summary ---
Author Name Unknown Organization [facility] Address [address] [place] [address] Care Team Providers Care Motor Coach Supervisor Name Role Phone Andrey Tamez MD Primary Care Provider [phone] Andrey Tamez MD Unavailable [phone] Andrey Tamez MD Unavailable [phone] Encounter Details Date Type Department Care Team (Late st Contact Info) Description 03/25/2012 MyC Medical Advice [facility] 303 [facility] [address] [place] [address] Andrey Tamez MD [address] [facility] 160 [place] [address] Social History Tobacco Use Types Packs/Day Years Used Date Smoking Tobacco: Former Cigarettes 0.5 16 Q uit: 09/06/1978 Smokeless Tobacco: Never Alcohol Use Standard Drinks/Week Comments Yes 10 (1 standard drink = 0.6 oz pu re alcohol) A drink every 1-2 weeks. Sex and Gender Information Value Date Recorded Sex Assigned at Male 10/03/2020 10:26 AM PRESS OPERATOR PRINTING Gender Identity Male 10/03/2020 10:26 AM PRESS OPERATOR PRINTING Sexual Orientation Straight 10/03/2020 10 :26 AM PRESS OPERATOR PRINTING documented as of this encounter Plan of Treatment Not on file documented as of this encounter Visit Diagnoses Not on filedocumented in this encounter Care Teams Motor Coach Supervisor Relationship Specialty Start Date End Date Andrey Tamez MD PCP - General 03/26/09 Andrey Tamez MD [address] [address] PCP - Assigned PCP 09/11/12 11/08/18 Andrey Tamez MD [address] [address] Assigned PCP 09/11/12 09/07/20 documented as of this encounter
--- OUTSIDE RECORDS SUMMARY | 2023-09-23 08:35 | XMS_ITS | Encounter Summary ---
Author Name Unknown Organization [facility] Address [address] [place] [address] Care Team Providers Care Hand Box Folder Name Role Phone Andrey Tamez MD Primary Care Provider [phone] Andrey Tamez MD Unavailable [phone] Andrey Tamez MD Unavailable [phone] Encounter Details Date Type Department Care Team (Late st Contact Info) Description 10/05/2016 MyC Medical Advice [facility] 303 [facility] [address] [place] [address] Andrey Tamez MD 303 [address] [facility] 160 [place] [address] Social History Tobacco Use Types Packs/Day Years Used Date Smoking Tobacco: Former Cigarettes 0.5 16 Q uit: 09/06/1978 Smokeless Tobacco: Never Alcohol Use Standard Drinks/Week Comments Yes 10 (1 standard drink = 0.6 oz pu re alcohol) A drink every 1-2 weeks. Sex and Gender Information Value Date Recorded Sex Assigned at Male 10/03/2020 10:26 AM ELECTRONIC ENGINEERING TECHNICIAN Gender Identity Male 10/03/2020 10:26 AM ELECTRONIC ENGINEERING TECHNICIAN Sexual Orientation Straight 10/03/2020 10 :26 AM ELECTRONIC ENGINEERING TECHNICIAN documented as of this encounter Plan of Treatment Not on file documented as of this encounter Visit Diagnoses Not on filedocumented in this encounter Care Teams Hand Box Folder Relationship Specialty Start Date End Date Andrey Tamez MD PCP - General 03/26/09 Andrey Tamez MD [address] [address] PCP - Assigned PCP 09/11/12 11/08/18 Andrey Tamez MD [address] [address] Assigned PCP 09/11/12 09/07/20 documented as of this encounter
--- OUTSIDE RECORDS SUMMARY | 2023-09-23 08:35 | XMS_ITS | Encounter Summary ---
Author Name Unknown Organization [facility] Address [address] [place] [address] Care Team Providers Care Napkin Band Wrapper Name Role Phone Andrey Tamez MD Primary Care Provider Andrey Tamez MD Unavailable [phone] Andrey Tamez MD Unavailable [phone] Encounter Details Date Type Department Care Team (Late st Contact Info) Description 07/17/2013 MyC Medical Advice [facility] [address] [place] [id number] Andrey Tamez MD [address] [facility] 160 [place] [address] Social History Tobacco Use Types Packs/Day Years Used Date Smoking Tobacco: Former Cigarettes 0.5 16 Q uit: 09/06/1978 Smokeless Tobacco: Never Alcohol Use Standard Drinks/Week Comments Yes 10 (1 standard drink = 0.6 oz pu re alcohol) A drink every 1-2 weeks. Sex and Gender Information Value Date Recorded Sex Assigned at Male 10/03/2020 10:26 AM REPTILE KEEPER Gender Identity Male 10/03/2020 10:26 AM REPTILE KEEPER Sexual Orientation Straight 10/03/2020 10 :26 AM REPTILE KEEPER documented as of this encounter Plan of Treatment Not on file documented as of this encounter Visit Diagnoses Not on filedocumented in this encounter Care Teams Napkin Band Wrapper Relationship Specialty Start Date End Date Andrey Tamez MD PCP - General 03/26/09 Andrey Tamez MD [address] [address] PCP - Assigned PCP 09/11/12 11/08/18 Andrey Tamez MD [address] [address] Assigned PCP 09/11/12 09/07/20 documented as of this encounter
--- OUTSIDE RECORDS SUMMARY | 2023-09-23 08:35 | XMS_ITS | Encounter Summary ---
Author Name Unknown Organization [facility] Address [address] [place] [address] Care Team Providers Care Fisher Trammel Net Name Role Phone Andrey Tamez MD Primary Care Provider [phone] Andrey Tamez MD Unavailable [phone] Andrey Tamez MD Unavailable [phone] Encounter Details Date Type Department Care Team (Late st Contact Info) Description 03/15/2016 [facility] Medical Advice [facility] 303 [facility] [address] [place] [address] Andrey Tamez MD 303 [address] [facility] 160 [place] [address] Social History Tobacco Use Types Packs/Day Years Used Date Smoking Tobacco: Former Cigarettes 0.5 16 Q uit: 09/06/1978 Smokeless Tobacco: Never Alcohol Use Standard Drinks/Week Comments Yes 10 (1 standard drink = 0.6 oz pu re alcohol) A drink every 1-2 weeks. Sex and Gender Information Value Date Recorded Sex Assigned at Male 10/03/2020 10:26 AM FLORAL DEPARTMENT SPECIALIST Gender Identity Male 10/03/2020 10:26 AM FLORAL DEPARTMENT SPECIALIST Sexual Orientation Straight 10/03/2020 10 :26 AM FLORAL DEPARTMENT SPECIALIST documented as of this encounter Plan of Treatment Not on file documented as of this encounter Visit Diagnoses Not on filedocumented in this encounter Care Teams Fisher Trammel Net Relationship Specialty Start Date End Date Andrey Tamez MD PCP - General 03/26/09 Andrey Tamez MD [address] [address] PCP - Assigned PCP 09/11/12 11/08/18 Andrey Tamez MD [address] [address] Assigned PCP 09/11/12 09/07/20 documented as of this encounter
--- OUTSIDE RECORDS SUMMARY | 2023-09-23 08:35 | XMS_ITS | Encounter Summary ---
Author Name Unknown Organization [facility] Address [address] [place] [address] Care Team Providers Care Solar Installation Crew Supervisor Name Role Phone Andrey Tamez MD Primary Care Provider [phone] Andrey Tamez MD Unavailable [phone] Andrey Tamez MD Unavailable [phone] Encounter Details Date Type Department Care Team (Late st Contact Info) Description 02/07/2015 MyC Medical Advice [facility] 303 [facility] [address] [place] [address] Andrey Tamez MD 303 [address] [facility] 160 [place] [address] Social History Tobacco Use Types Packs/Day Years Used Date Smoking Tobacco: Former Cigarettes 0.5 16 Q uit: 09/06/1978 Smokeless Tobacco: Never Alcohol Use Standard Drinks/Week Comments Yes 10 (1 standard drink = 0.6 oz pu re alcohol) A drink every 1-2 weeks. Sex and Gender Information Value Date Recorded Sex Assigned at Male 10/03/2020 10:26 AM RODENT EXTERMINATOR Gender Identity Male 10/03/2020 10:26 AM RODENT EXTERMINATOR Sexual Orientation Straight 10/03/2020 10 :26 AM RODENT EXTERMINATOR documented as of this encounter Plan of Treatment Not on file documented as of this encounter Visit Diagnoses Not on filedocumented in this encounter Care Teams Solar Installation Crew Supervisor Relationship Specialty Start Date End Date Andrey Tamez MD PCP - General 03/26/09 Andrey Tamez MD [address] [address] PCP - Assigned PCP 09/11/12 11/08/18 Andrey Tamez MD [address] [address] Assigned PCP 09/11/12 09/07/20 documented as of this encounter
--- OUTSIDE RECORDS SUMMARY | 2023-09-23 08:35 | XMS_ITS | Encounter Summary ---
Author Name Unknown Organization [facility] Address [address] [place] [address] Care Team Providers Care Urgent Care Technician Name Role Phone Andrey Tamez MD Primary Care Provider Andrey Tamez MD Unavailable [phone] Andrey Tamez MD Unavailable [phone] Reason for Visit * Reason Onset Date Comments Nurse Advice Line 09/07/2011 Encounter Details Date Type Department Care Team (Late st Contact Info) Description 09/07/2011 Telephone [facility] 303 [facility] [address] [place] [address] Andrey Tamez MD [address] 160 [place] [address] Nurse Advice Line Social History Tobacco Use Types Packs/Day Years Used Date Smoking Tobacco: Former Cigarettes 0.5 16 Q uit: 09/06/1978 Alcohol Use Standard Drinks/Week Comments Yes 10 (1 standard drink = 0.6 oz pu re alcohol) A drink every 1-2 weeks. Sex and Gender Information Value Date Recorded Sex Assigned at Male 10/03/2020 10:26 AM CHEMICAL HANDLER Gender Identity Male 10/03/2020 10:26 AM CHEMICAL HANDLER Sexual Orientation Straight 10/03/2020 10 :26 AM CHEMICAL HANDLER documented as of this encounter Miscellaneous Notes * Telephone Encounter - Nahomi Niño - 09/07/2011 11:08 AM CST [facility] Triage Call Report Patient Name: Rodolfo Quevedo Call Date & Time: 09/07/2011 9:20:27AM Patient PCP Name: Andrey Tamez Patient Address: [address] [place] [id number] Patient Date of : 1945 Age: 66 yr. Patient Gender: Male Sack Lifter Name: Shiela Slaughter Presenting Problem: I had [...] air. Be sure to clean according to knife operator's instructions. - May inhale steam from hot [...] Medication Note: Allergy: Reaction: Procedure: Procedure Note: ICAL HANDLER documented in this encounter Plan of Treatment Not on file documented as of this encounter Visit Diagnoses Not on filedocumented in this encounter Care Teams Urgent Care Technician Relationship Specialty Start Date End Date Andrey Tamez MD PCP - General 03/26/09 Andrey Tamez MD [address] [employer] [facility] 160 [place] [address] PCP - Assigned PCP 09/11/12 11/08/18 Andrey Tamez MD [address] [employer] [facility] 160 [place] [address] Assigned PCP 09/11/12 09/07/20 documented as of this encounter
--- OUTSIDE RECORDS SUMMARY | 2023-09-23 08:35 | XMS_ITS | Encounter Summary ---
Author Name Unknown Organization [facility] Address [address] [place] [address] Care Team Providers Care Political Organizer Name Role Phone Andrey Tamez MD Primary Care Provider [phone] Andrey Tamez MD Unavailable [phone] Andrey Tamez MD Unavailable [phone] Encounter Details Date Type Department Care Team (Late st Contact Info) Description 06/12/2018 [facility] [place] [facility] 303 [facility] [address] [place] [address] Andrey Tamez MD 303 [address] [facility] 160 [place] [address] Social History Tobacco Use Types Packs/Day Years Used Date Smoking Tobacco: Former Cigarettes 0.5 16 Q uit: 09/06/1978 Smokeless Tobacco: Never Alcohol Use Standard Drinks/Week Comments Yes 10 (1 standard drink = 0.6 oz pu re alcohol) A drink every 1-2 weeks. Sex and Gender Information Value Date Recorded Sex Assigned at Male 10/03/2020 10:26 AM SALESPERSON AUTOMOBILES Gender Identity Male 10/03/2020 10:26 AM SALESPERSON AUTOMOBILES Sexual Orientation Straight 10/03/2020 10 :26 AM SALESPERSON AUTOMOBILES documented as of this encounter Plan of Treatment Not on file documented as of this encounter Visit Diagnoses Not on filedocumented in this encounter Care Teams Political Organizer Relationship Specialty Start Date End Date Andrey Tamez MD PCP - General 03/26/09 Andrey Tamez MD [address] [address] PCP - Assigned PCP 09/11/12 11/08/18 Andrey Tamez MD [address] [address] Assigned PCP 09/11/12 09/07/20 documented as of this encounter
--- OUTSIDE RECORDS SUMMARY | 2023-09-23 08:35 | XMS_ITS | Encounter Summary ---
Author Name Unknown Organization [facility] Address [address] [place] [address] Care Team Providers Care Cabin Agent Name Role Phone Andrey Tamez MD Primary Care Provider [phone] Andrey Tamez MD Unavailable [phone] Andrey Tamez MD Unavailable [phone] Encounter Details Date Type Department Care Team (Late st Contact Info) Description 10/17/2012 MyC Medical Advice [facility] 303 [facility] [address] [place] [address] Andrey Tamez MD 303 [address] [facility] 160 [place] [address] Social History Tobacco Use Types Packs/Day Years Used Date Smoking Tobacco: Former Cigarettes 0.5 16 Q uit: 09/06/1978 Smokeless Tobacco: Never Alcohol Use Standard Drinks/Week Comments Yes 10 (1 standard drink = 0.6 oz pu re alcohol) A drink every 1-2 weeks. Sex and Gender Information Value Date Recorded Sex Assigned at Male 10/03/2020 10:26 AM DIRECTOR MATERNAL CHILD Gender Identity Male 10/03/2020 10:26 AM DIRECTOR MATERNAL CHILD Sexual Orientation Straight 10/03/2020 10 :26 AM DIRECTOR MATERNAL CHILD documented as of this encounter Plan of Treatment Not on file documented as of this encounter Visit Diagnoses Not on filedocumented in this encounter Care Teams Cabin Agent Relationship Specialty Start Date End Date Andrey Tamez MD PCP - General 03/26/09 Andrey Tamez MD [address] [address] PCP - Assigned PCP 09/11/12 11/08/18 Andrey Tamez MD [address] [address] Assigned PCP 09/11/12 09/07/20 documented as of this encounter
--- OUTSIDE RECORDS SUMMARY | 2023-09-23 08:35 | XMS_ITS | Encounter Summary ---
Author Name Unknown Organization [facility] Address [address] [place] [address]. [place] [address] Care Team Providers Care Coding Team Lead Name Role Phone Andrey Tamez MD Primary Care Provider Andrey Tamez MD Unavailable [phone] Andrey Tamez MD Unavailable [phone] Encounter Details Date Type Department Care Team (Late st Contact Info) Description 09/18/2009 Office Visit-[facility] [place] [address] [facility] [address] [place] [address] Katy Trevizo, [facility] [address] [facility] [address] [place] [address] Social History Tobacco Use Types Packs/Day Years Used Date Smoking Tobacco: Former Cigarettes 0.5 16 Q uit: 09/06/1978 Alcohol Use Standard Drinks/Week Comments Yes 10 (1 standard drink = 0.6 oz pu re alcohol) Sex and Gender Information Value Date Recorded Sex Assigned at Male 10/03/2020 10:26 AM TABLET TECHNICIAN Gender Identity Male 10/03/2020 10:26 AM TABLET TECHNICIAN Sexual Orientation Straight 10/03/2020 10 :26 AM TABLET TECHNICIAN documented as of this encounter Progress Notes * Katy Trevizo NP - 09/19/2009 2:22 PM CST Progress Note Created by: Katy Trevizo N.P. [id number] DATE: 09/18/2009 RODOLFO HARTLEY DATE OF : 1945 AGE: [age] years old Referring Physician: LAURA RESTREPO Referring Clinic: [facility]INIC OF NEUROLOGY CURRENT DIAGNOSES 1. - CAD, 414.00 2. - Hyperlipidemia, 272.4 3. Cerebral Vascular Accident, 435.[address]-S/P Anterior, 412 5. PTCA-LAD FLORI stent 03/2005 [...] He has remained on Plavix. His NELDA wasnegative. He is on Vytorin for elevated cholesterol levels. This is being managed through his primary medical doctor. Most recent lipid panel was in March 2009. His LDL level at that time was 77. He has a known elevated hemoglobin A1c of 7.5%. However, the patient has not followed through on any further investigation or dietary changes. He returns today for [...] pounds due to dietary indiscretions. He is activeand participate in a formal exercise program at the gym on a fairly regular basis. He has no limitations regarding this. He does monitor his blood pressure at home and tells me that his systolic blood pressures are mainly running at 130 to 150 mmHg. His blood pressure today was 143/80. Heart rate was 58. His lungs were clear. There was no evidenceof jugular venous distention or peripheral edema. Further review of systems and physical exam are as noted below. PAST HISTORY Past Medical Illnesses: hyperlipidemia, diabetes [id number] dependent, hypertension, CVA without residual deficits Past [...] concentric LVH;LVSF reduced; EF=35%. Distal septal and apical wall motion abnormality noted. Left Ventricular Ejection Fraction: [...] min, cycling, rowing machine, treadmill and weight lifting; Seat Belt Use - always; Occupation - [employer]; Residence - lives with ; Place of - [place]; Hours Worked - 40 hours per week; [...] S4, Apical impulse not displaced, no murmurs, gallops or rubs detected. ABDOMEN abdomen soft, bowel sounds [...] and Ramipril 5 Mg Tablet 1 p.o. daily #0 Refill IMPRESSIONS/PLAN 1. Coronary artery disease. He has a history of an anterior wall myocardial infarction and stentingof the LAD in 2004. He is free from any anginal symptoms today. His most recent nuclear stress testdone last year showed anterior wall myocardial infarction without ischemia. I have asked him to remain on beta- blockade and KELI inhibitor therapy. 2. Low normal left ventricular function. He does have known ischemic cardiomyopathy with a left ventricular ejection fraction estimated to be around 50%. We did discuss watching the salt in his diet. I also discussed daily weights. I would like for himto weigh himself daily and to notify our [...] four weeks for a BMP and reassessment. 4.Diabetes. Hemoglobin A1c was 7.5%. He has been [...] is to notify our clinic with any chest discomfort, shortness of breath, lightheadedness, dizziness, or other concerns that he may have during the interim. TODAYS ORDERS 1. BMP 3 weeks 2. Return Visit 3 weeks Katy Trevizo N.P. documented in this encounter Plan of Treatment Not on file documented as of this encounter Visit Diagnoses Not on filedocumented in this encounter Care Teams Coding Team Lead Relationship Specialty Start Date End Date Andrey Tamez MD PCP - General 03/26/09 Andrey Tamez MD [address] [place] [address] PCP - Assigned PCP 09/11/12 11/08/18 Andrey Tamez MD [address] [place] [address] Assigned PCP 09/11/12 09/07/20 documented as of this encounter
--- OUTSIDE RECORDS SUMMARY | 2023-09-23 08:35 | XMS_ITS | Encounter Summary ---
Author Name Unknown Organization [facility] Address [address] [place] [address] Care Team Providers Care Lithographer Apprentice Name Role Phone Andrey Tamez MD Primary Care Provider Andrey Tamez MD Unavailable [phone] Andrey Tamez MD Unavailable [phone] Encounter Details Date Type Department Care Team (Late st Contact Info) Description 03/02/2011 MyC Medical Advice [facility] 303 [facility] [address] [place] [address] Andrey Tamez MD 303 [address] [facility] 160 [place] [address] Social History Tobacco Use Types Packs/Day Years Used Date Smoking Tobacco: Former Cigarettes 0.5 16 Q uit: 09/06/1978 Alcohol Use Standard Drinks/Week Comments Yes 10 (1 standard drink = 0.6 oz pu re alcohol) A drink every 1-2 weeks. Sex and Gender Information Value Date Recorded Sex Assigned at Male 10/03/2020 10:26 AM MACHINE CEMENTER Gender Identity Male 10/03/2020 10:26 AM MACHINE CEMENTER Sexual Orientation Straight 10/03/2020 10 :26 AM MACHINE CEMENTER documented as of this encounter Plan of Treatment Not on file documented as of this encounter Visit Diagnoses Not on filedocumented in this encounter Care Teams Lithographer Apprentice Relationship Specialty Start Date End Date Andrey Tamez MD PCP - General 03/26/09 Andrey Tamez MD [address] [address] PCP - Assigned PCP 09/11/12 11/08/18 Andrey Tamez MD [address] [address] Assigned PCP 09/11/12 1 documented as of this encounter
--- OUTSIDE RECORDS SUMMARY | 2023-09-23 08:35 | XMS_ITS | Encounter Summary ---
Author Name Unknown Organization [facility] Address [address] [place] [address] Care Team Providers Care Vp Corporate Partnerships Name Role Phone Andrey Tamez MD Primary Care Provider [phone] Andrey Tamez MD Unavailable [phone] Andrey Tamez MD Unavailable [phone] Reason for Visit * Reason Onset Date Comments Refill Request 01/03/2018 Encounter Details Date Type Department Care Team (Late st Contact Info) Description 01/03/2018 My[facility] Medical Advice [address] [place] [address] Andrey Tamez MD [address] [facility] [address] [place] [address] Refill Request Social History Tobacco Use Types Packs/Day Years Used Date Smoking Tobacco: Former Cigarettes 0.5 16 Q uit: 09/06/1978 Smokeless Tobacco: Never Alcohol Use Standard Drinks/Week Comments Yes 10 (1 standard drink = 0.6 oz pu re alcohol) A drink every 1-2 weeks. Sex and Gender Information Value Date Recorded Sex Assigned at Male 10/03/2020 10:26 AM WATER MANAGER Gender Identity Male 10/03/2020 10:26 AM WATER MANAGER Sexual Orientation Straight 10/03/2020 10 :26 AM WATER MANAGER documented as of this encounter Miscellaneous Notes * Telephone Encounter - Andrey Tamez MD - 01/05/2018 12:31 PM CDT Future lab orders entered. * Telephone Encounter - Deidre Prasad RN - 01/04/2018 10:40 AM CDT Patient calling back and states he was not fasting for his 09/07/17 labs. Patient would like to have labs before his OV with provider, advised to check with insurance for coverage before scheduling labs. Patient due for HgbA1C, microalbumin, FLP, CMP in EPIC. Please place additional labs if need and contact patient to schedule. Patient reports needs refills on simvastatin, ramipril, metoprolol. Patient reports had some back pain. Patient decreased Simvastatin 40 mg tablet To everyother day and the back pain he had been experiencing went away. Provider please review and advise. Thank you. documented in this encounter Plan of Treatment Not on file documented as of this encounter Results * Albumin Random Urine Quantitative with Creat Ratio (04/28/2018 8:15 AM CDT) Creatinine Urine 83 mg/dL 04/28/2018 3:50 PM CDT [facility] Albumin Urine mg/L 13 mg/L 04/28/2018 3:50 PM CDT [facility] Albumin Urine mg/g Cr 15.64 0 - 17 mg/g Cr 04/28/2018 3:50 PM CDT [facility] Urine specimen (specimen) 04/28/2018 8:15 AM CDT 04/28/2018 8:20 AM CDT Andrey Tamez MD LAB - URINE ORDERABL ES [facility] [address] [place] [address] * (ABNORMAL) Lipid panel reflex to direct LDL Fasting (04/28/2018 8:14 AM CDT) Cholesterol 133 <200 mg/dL 04/28/2018 2:06 PM CDT [facility] Triglycerides 191(H) <150 mg/dL 04/28/2018 2:06 PM CDT [facility] Comment: Borderline high: ??150-199 mg/dl High: ? 200-499 mg/dl Very high: ? >499 mg/dl Fasting specimen HDL Cholesterol 36(L) >39 mg/dL 8 2:06 PM CDT [facility] LDL Cholesterol Calculated 59 <100 mg/dL 04/28/2018 2:06 PM CDT [facility] Comment:Desirable: <100 mg/d l Non HDL Cholesterol 97 <130 mg/dL 04/28/2018 2:06 PM CDT [facility] Blood specimen (specimen) 04/28/2018 8:14 AM CDT 04/28/2018 8:19 AM CDT Andrey Tamez MD LAB - BLOOD ORDERABL ES [facility] [address] [place] [address] * (ABNORMAL) Comprehensive metabolic panel (04/28/2018 8:14 AM CDT) Sodium 139 133 - 144 mmol/L 04/28/2018 2:06 PM CDT [facility] Potassium 4.5 3.4 - 5.3 mmol/L 04/28/2018 2:06 PM CDT [facility] Chloride 103 94 - 109 mmol/L 04/28/2018 2:06 PM CDT [facility] Carbon Dioxide 27 20 - 32 mmol/L 04/28/2018 2:06 PM CDT [facility] Anion Gap 9 3 - 14 mmol/L 04/28/2018 2:06 PM CDT [facility] Glucose 140(H) 70 - 99 mg/dL 04/28/2018 2:06 PM CDT [facility] Comment:Fasting specimen Urea Nitrogen 17 7 - 30 mg/dL 04/28/2018 2:06 PM CDT [facility] Creatinine 1.18 0.66 - 1.25 mg/dL 04/28/2018 2:06 PM CDT [facility] GFR Estimate 61 >60 mL/min/1.7 m2 04/28/2018 2:06 PM CDT [facility] Comment:Non GFR Calc GFR Estimate If Black 73 >60 mL/min/1.7 m2 04/28/2018 2:06 PM CDT [facility] Comment: GFR Calc Calcium 9.0 8.5 - 10.1 mg/dL 04/28/2018 2:06 PM CDT [facility] Bilirubin Total 0.5 0.2 - 1.3 mg/dL 04/28/2018 2:06 PM CDT [facility] Albumin 3.7 3.4 - 5.0 g/dL 04/28/2018 2:06 PM CDT [facility] Protein Total 6.7(L) 6.8 - 8.8 g/dL 04/28/2018 2:06 PM CDT [facility] Alkaline Phosphatase 72 40 - 150 U/L 04/28/2018 2:06 PM CDT [facility] ALT 21 0 - 70 U/L 04/28/2018 2:06 PM CDT [facility] AST 16 0 - 45 U/L 04/28/2018 2:06 PM CDT [facility] Blood specimen (specimen) 04/28/2018 8:14 AM CDT 04/28/2018 8:19 AM CDT Andrey Tamez MD LAB - BLOOD ORDERABL ES [facility] [address] [place] [address] * (ABNORMAL) Hemoglobin A1c (04/28/2018 8:14 AM CDT) Hemoglobin A1C 7.3(H) 0 - 5.6 % 04/28/2018 8:54 AM CDT [facility] Comment: Normal <5.7% Prediabetes 5.7-6.4% ??Diabetes 6.5% or higher - adopted from ADA consensus guidelines. Blood specimen (specimen) 04/28/2018 8:14 AM CDT 04/28/2018 8:19 AM CDT Andrey Tamez MD LAB - BLOOD ORDERABL ES [facility] [address] [place], [place] [address] documented in this encounter Visit Diagnoses Diagnosis Coronary artery disease involving [place] coronary artery of [place] heart, angina presence unspecified Type 2 diabetes mellitus with other circulatory complication, without long-term current use of insulin (H) Hyperlipidemia LDL goal <100 Other and unspecified hyperlipidemia documented in this encounter Care Teams Vp Corporate Partnerships Relationship Specialty Start Date End Date Andrey Tamez MD PCP - General 03/26/09 Andrey Tamez MD [address] [place] [address] PCP - Assigned PCP 09/11/12 11/08/18 Andrey Tamez MD [address] [place] [address] Assigned PCP 09/11/12 09/07/20 documented as of this encounter
--- OUTSIDE RECORDS SUMMARY | 2023-09-23 08:35 | XMS_ITS | Encounter Summary ---
Author Name Unknown Organization [facility] Address [address] [place] [address] Care Team Providers Care Bricklayer Paving Brick Name Role Phone Andrey Tamez MD Primary Care Provider [phone] Andrey Tamez MD Unavailable [phone] Andrey Tamez MD Unavailable [phone] Encounter Details Date Type Department Care Team (Late st Contact Info) Description 06/18/2014 [facility] [facility] [address] [facility] [address] [place] [address] Andrey Tamez MD [address] [facility] [address] [place] [address] Social History Tobacco Use Types Packs/Day Years Used Date Smoking Tobacco: Former Cigarettes 0.5 16 Q uit: 09/06/1978 Smokeless Tobacco: Never Alcohol Use Standard Drinks/Week Comments Yes 10 (1 standard drink = 0.6 oz pu re alcohol) A drink every 1-2 weeks. Sex and Gender Information Value Date Recorded Sex Assigned at Male 10/03/2020 10:26 AM PLUSH FINISHER Gender Identity Male 10/03/2020 10:26 AM PLUSH FINISHER Sexual Orientation Straight 10/03/2020 10 :26 AM PLUSH FINISHER documented as of this encounter Plan of Treatment Not on file documented as of this encounter Visit Diagnoses Not on filedocumented in this encounter Care Teams Bricklayer Paving Brick Relationship Specialty Start Date End Date Andrey Tamez MD PCP - General 03/26/09 Andrey Tamez MD [address] [address] PCP - Assigned PCP 09/11/12 11/08/18 Andrey Tamez MD [address] [address] Assigned PCP 09/11/12 09/07/20 documented as of this encounter
--- OUTSIDE RECORDS SUMMARY | 2023-09-23 08:35 | XMS_ITS | Encounter Summary ---
Author Name Unknown Organization [facility] Address [address] [place] [address] Care Team Providers Care Molder Operator Name Role Phone Andrey Tamez MD Primary Care Provider [phone] Andrey Tamez MD Unavailable [phone] Andrey Tamez MD Unavailable [phone] Encounter Details Date Type Department Care Team (Late st Contact Info) Description 05/14/2013 [facility] Medical Advice Initial Department [facility] [place] Social History Tobacco Use Types Packs/Day Years Used Date Smoking Tobacco: Former Cigarettes 0.5 16 Q uit: 09/06/1978 Smokeless Tobacco: Never Alcohol Use Standard Drinks/Week Comments Yes 10 (1 standard drink = 0.6 oz pu re alcohol) A drink every 1-2 weeks. Sex and Gender Information Value Date Recorded Sex Assigned at Male 10/03/2020 10:26 AM SENIOR EXECUTIVE COMPENSATION ANALYST Gender Identity Male 10/03/2020 10:26 AM SENIOR EXECUTIVE COMPENSATION ANALYST Sexual Orientation Straight 10/03/2020 10 :26 AM SENIOR EXECUTIVE COMPENSATION ANALYST documented as of this encounter Plan of Treatment Not on file documented as of this encounter Visit Diagnoses Not on filedocumented in this encounter Care Teams Molder Operator Relationship Specialty Start Date End Date Andrey Tamez MD PCP - General 03/26/09 Andrey Tamez MD [address] [facility] [address] [place] [address] PCP - Assigned PCP 09/11/12 11/08/18 Andrey Tamez MD [address] [facility] 160 [place] [address] Assigned PCP 09/11/12 09/07/20 documented as of this encounter
--- OUTSIDE RECORDS SUMMARY | 2023-09-23 08:35 | XMS_ITS | Encounter Summary ---
Author Name Unknown Organization [facility] Address [address] [place] [address] Care Team Providers Care Obstetric Assistant Name Role Phone Shane Tamez MD Primary Care Provider [phone] Shane Tamez MD Unavailable [phone] Shane Tamez MD Unavailable [phone] Encounter Details Date Type Department Care Team (Late st Contact Info) Description 04/23/2010 Office Visit-[facility] [address] [place] [address] Yazan Foreman MD Social History Tobacco Use Types Packs/Day Years Used Date Smoking Tobacco: Former Cigarettes 0.5 16 Q uit: 09/06/1978 Alcohol Use Standard Drinks/Week Comments Yes 10 (1 standard drink = 0.6 oz pu re alcohol) Sex and Gender Information Value Date Recorded Sex Assigned at Male 10/03/2020 10:26 AM HAND METHOD LASTING MACHINE OPERATOR Gender Identity Male 10/03/2020 10:26 AM HAND METHOD LASTING MACHINE OPERATOR Sexual Orientation Straight 10/03/2020 10 :26 AM HAND METHOD LASTING MACHINE OPERATOR documented as of this encounter Progress Notes * Yazan Foreman MD - 04/28/2010 10:24 AM CDT Progress Note Created by: Yazan Foreman M.D. DATE: 04/23/2010 RODOLFO HARTLEY DATE OF : 1945 AGE: [age] years old Referring Physician: SHANE TAMEZ Referring Clinic: [facility] CURRENT DIAGNOSES 1. - CAD, 414.00 2. PA-S/P Anterior, 412 3. PTCA-LAD FLORI stent 03/2005 [...] of - Hypertension, benign and Followup of PA-S/P Anterior HISTORY OF PRESENT ILLNESS I had the pleasure of seeing Mr. Hartley today. This is 64-year-old gentleman is seen in followup of his history of coronary artery disease. In 2004, he presented with an acute anterior myocardial infarction, treated with emergent left anterior descending stenting. Clinically, he has been stable this year. He has retired but remains active. He has had no limitingsymptoms or concerns. He is without chest discomfort, [...] times over 10 to 20 minutes and averaging them. He states although they usually start out at 140/80, over the course of his multiple measurements they are averaging 130/66 or so. Cardiopulmonary exam is normal today. PAST HISTORY Past Medical Illnesses: hyperlipidemia, diabetes njqqkctk-cnt-dmmsbpt dependent, hypertension, CVA without residual deficits Past [...] - retired and 06/2009; Residence - lives withwife; Place of - [place]; Hours Worked [...] 3. Hypertension. The numbers he brings in today,I think, are reasonable control. I will have [...] ORDERS 1. F/U with Katy Trevizo, MSN, [facility]IL[facility] PULLER 1 year Yazan Foreman M.D. documented in this encounter Plan of Treatment Not on file documented as of this encounter Visit Diagnoses Not on filedocumented in this encounter Care Teams Obstetric Assistant Relationship Specialty Start Date End Date Shane Tamez MD PCP - General 03/26/09 Shane Tamez MD [address] [place] [address] PCP - Assigned PCP 09/11/12 11/08/18 Shane Tamez MD [address] [place] [address] Assigned PCP 09/11/12 09/07/20 documented as of this encounter
--- OUTSIDE RECORDS SUMMARY | 2023-09-23 08:35 | XMS_ITS | Encounter Summary ---
Author Name Unknown Organization [facility] Address [address] [place] [address]. [place] [address] Care Team Providers Care Supervisor Framing Mill Name Role Phone Andrey Tamez MD Primary Care Provider Andrey Tamez MD Unavailable [phone] Andrey Tamez MD Unavailable [phone] Encounter Details Date Type Department Care Team (Late st Contact Info) Description 10/09/2009 Office Visit-[facility] [place] [address] [facility] [address] [place] [address] Katy Trevizo, MELTING OPERATOR [facility] [address] [facility] [address] [place] [id number] Social History Tobacco Use Types Packs/Day Years Used Date Smoking Tobacco: Former Cigarettes 0.5 16 Q uit: 09/06/1978 Alcohol Use Standard Drinks/Week Comments Yes 10 (1 standard drink = 0.6 oz pu re alcohol) Sex and Gender Information Value Date Recorded Sex Assigned at Male 10/03/2020 10:26 AM BEET FLUMER Gender Identity Male 10/03/2020 10:26 AM BEET FLUMER Sexual Orientation Straight 10/03/2020 10 :26 AM BEET FLUMER documented as of this encounter Progress Notes * Katy Trevizo NP - 10/14/2009 11:28 AM CST Progress Note Created by: Katy Trevizo N.P. [id number] DATE: 10/09/2009 RODOLFO HARTLEY DATE OF : 1945 AGE: [age] years old Referring Physician: LAURA RESTREPO Referring Clinic: [facility] CURRENT DIAGNOSES 1. - CAD, 414.00 2. - Hyperlipidemia, 272.4 3. Cerebral Vascular Accident, 435.9 4. MT-S/P Anterior, 412 5. PTCA-LAD FLORI stent 03/2005 [...] delightful 54-year-old male who [place] [...] and KELI inhibitor therapy. 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 Fortunately, he has had complete resolution. He has known elevated cholesterol levels. His most recent LDL level was 77. This was done through his primarymedical doctor. He has remained on Vytorin. He has known low normal left ventricular function. In follow up, he has not experienced any heart failure symptoms. I saw Rodolfo last month for an annual office visit. His blood pressure was uncontrolled. I have increased his ramipril to 10 mg twice daily. He returns today for a BMP and reassessment. Rodolfo tells [...] lungs were clear. There was no evidenceof any jugular venous distention or peripheral edema. Further review of systems and physical exam are as noted below. PAST HISTORY Past Medical Illnesses: hyperlipidemia, diabetes iwgrmxnz-gap-rsqvsjx dependent, hypertension, CVA without residual deficits Past [...] Seat Belt Use - always; Occupation - [employer]; Residence - lives with ; Place of [...] emergent LAD stenting in 2004 with presentation ofan anterior wall myocardial infarction. He is free from any anginal symptoms at this time. One yearago, a nuclear stress test showed no evidence of ischemia. 2. Hypertension. Rodolfo's blood pressure isslightly improved on a higher dose of ramipril. However, it is still fairly borderline. He does assure me that at home his blood pressure remains under 140 mmHg. We talked about lifestyle modifications of reducing elevated blood pressure. He would like to continue to monitor this at home and work on lifestyle modifications. We will have him return in six months for reassessment. He is to notify our clinic with any systolic blood pressures over 140 mmHg or diastolic blood pressures over 80 mmHg.3. Hyperlipidemia. He is on Vytorin. Her LDL is at goal. This is managed through is primary medicaldoctor. 4. Low normal left ventricular function. He is on beta-blockade and KEIL inhibitor therapy. There are no signs or symptoms of fluid overload on today's examination. 5. History of CVA, which isfelt to be embolic. Fortunately, he has had complete resolution. He remains on Plavix. 6. Rodolfo has ahistory of borderline diabetes. This is being followed closely through his primary medical doctor. Thank you for allowing me to participate in this patient's care. TODAYS ORDERS 1. F/U with Yazan Foreman MD 6 months Katy Trevizo N.P. documented in this encounter Plan of Treatment Not on file documented as of this encounter Visit Diagnoses Not on filedocumented in this encounter Care Teams Supervisor Framing Mill Relationship Specialty Start Date End Date Andrey Tamez MD PCP - General 03/26/09 Andrey Tamez MD [address] [address] PCP - Assigned PCP 09/11/12 11/08/18 Andrey Tamez MD [address] [place] [address] Assigned PCP 09/11/12 09/07/20 documented as of this encounter
--- OUTSIDE RECORDS SUMMARY | 2023-09-23 08:36 | XMS_ITS | Encounter Summary ---
Author Name Unknown Organization [facility] Address [address] [place] [address] Care Team Providers Care Blood Bank Technologist Name Role Phone Andrey Tamez MD Primary Care Provider [phone] Bailey Doran MD Primary Care Provider [phone] Andrey Tamez MD Unavailable [phone] Andrey Tamez MD Unavailable [phone] Encounter Details Date Type Department Care Team (Late st Contact Info) Description 03/30/2005 Office Visit-[facility] [address] [address] Unknown, DoctorMD Social History Tobacco Use Types Packs/Day Years Used Date Smoking Tobacco: Former Cigarettes 0.5 16 Q uit: 09/06/1978 Alcohol Use Standard Drinks/Week Comments Yes 10 (1 standard drink = 0.6 oz pu re alcohol) Sex and Gender Information Value Date Recorded Sex Assigned at Male 10/03/2020 10:26 AM PROJECT SPECIALIST Gender Identity Male 10/03/2020 10:26 AM PROJECT SPECIALIST Sexual Orientation Straight 10/03/2020 10 :26 AM PROJECT SPECIALIST documented as of this encounter Progress Notes * Unknown, MD Eleuterio - 04/01/2005 9:18 AM CDT Progress Note Created by: Vanessa Peters PA-C DATE: 03/30/2005 [id number] RODOLFO HARTLEY DATE OF : 1945 AGE: [age] years old Referring Physician: MERA ANGULO Referring Clinic: [facility] CURRENT DIAGNOSES 1. ME-Acute Anterior, 410.11 2. - CAD, 414.00 3. [...] a delightful 59-year-old gentleman who presents to [facility] today for a follow-up visit regarding his recent hospitalization. As you recall, this patient had presented with an acute anterior wall ME and underwent emergent coronary angiography with successful stenting tohis LAD although there was no re-flow episode for a period of time following stenting. He did quitewell postoperatively. His angiogram revealed an ejection fraction of 35%. He did have mild to moderate disease in the right coronary artery and obtuse marginal branch. The patient was started on Plavix, aspirin, metoprolol, lisinopril and Vytorin. He seems to be tolerating all of these medications w ithout any difficulty. 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 He is back to using his treadmill on a daily basis without any difficulty. He is also going to start in cardiac rehab tomorrow and continue this for [...] Seat Belt Use - always; Occupation - [employer]; Residence - lives with ; Place of - [place]; Hours Worked - 40 hours per week; [...] AND PLAN: 1. An acute anterior wall ME with emergent stenting to the LAD. The patient, however, did not have re-flow immediately following stenting. His ejection fraction was estimated at approximately 35%. Hewas started on KELI inhibitors as well as beta-blockers and will have a repeat echocardiogram to evaluate the recovery of his left ventricular function in one months time. He will remain on Plavix fora minimum of 6-9 months and aspirin indefinitely. 2. Dyslipidemia. The patient was started on Vytorin 10/20mg once a day. He seems to tolerate this without any myalgias or muscle weakness. He is scheduled to have a follow-up fasting lipid profile and ALT in approximately one months time. I would shoot for a triglyceride less than 150, HDL greater than [...] on filedocumented in this encounter Care Teams Blood Bank Technologist Relationship Specialty Start Date End Date Andrey Tamez MD PCP - General 03/26/09 Bailey Doran MD [address], [facility] [address] [place] [address] PCP - General 09/20/00 03/25/09 Andrey Tamez MD [address] [facility] [address] [place] [address] PCP - Assigned PCP 09/11/12 11/08/18 Andrey Tamez MD [address] [place] [address] Assigned PCP 09/11/12 09/07/20 documented as of this encounter
--- OUTSIDE RECORDS SUMMARY | 2023-09-23 08:36 | XMS_ITS | Encounter Summary ---
Author Name Unknown Organization [place] Address [address] [place] [address] Care Team Providers Care Coal Trimmer Name Role Phone Andrey Tamez MD Primary Care Provider Bailey Doran MD Primary Care Provider [phone] Andrey Tamez MD Unavailable [phone] Andrey Tamez MD Unavailable [phone] Encounter Details Date Type Department Care Team (Late st Contact Info) Description 11/12/2000 [facility] [address] [place] [address] [address] [place] [phone] [place] [id number] [place] [address] MIXED HYPERLIPIDEMIA; FAMILY HX-CARDIOVAS DIS NEC; DIABETES UNCOMPL ADULT-TYPE II Social History Tobacco Use Types Packs/Day Years Used Date Smoking Tobacco: Former Cigarettes 0.5 16 Q uit: 09/06/1978 Smokeless Tobacco: Never Alcohol Use Standard Drinks/Week Comments Yes 10 (1 standard drink = 0.6 oz pu re alcohol) A drink every 1-2 weeks. Sex and Gender Information Value Date Recorded Sex Assigned at Male 10/03/2020 10:26 AM BLOG WRITER Gender Identity Male 10/03/2020 10:26 AM BLOG WRITER Sexual Orientation Straight 10/03/2020 10 :26 AM BLOG WRITER documented as of this encounter Progress Notes * 11/12/2000 11:59 PM CSTStress Echo for cholesterol, diabetes, family history of coronary artery disease within normal limits documented in this encounter Plan of Treatment Not on file documented as of this encounter Procedures Procedure Name Priority Date/Time Associated Diagnosis Comments ZC CARDIAC STRESS TST,INTERP/REPT ONLY Routine 11/12/2000 Mixed Hyperlipidemia Family Hx-Cardiovas Dis Nec Diabetes Uncompl Adult-Type Ii documented in this encounter Results * CARDIAC STRESS TST,INTERP/REPT ONLY (11/12/2000) Inder Martinez MD [facility] documented in this encounter Visit Diagnoses Diagnosis Mixed hyperlipidemia Fam hx-cardiovas dis NEC Family history of other cardiovascular diseases Type II or unspecified type diabetes mellitus without mention of complication, not stated as uncontrolled documented in this encounter Care Teams Coal Trimmer Relationship Specialty Start Date End Date Andrey Tamez MD PCP - General 03/26/09 Bailey Doran MD [address], [address] [place] [address] PCP - General 09/20/00 03/25/09 Andrey Tamez MD [address] [place] [address] PCP - Assigned PCP 09/11/12 11/08/18 Andrey Tamez MD [address] [place] [address] Assigned PCP 09/11/12 09/07/20 documented as of this encounter
--- OUTSIDE RECORDS SUMMARY | 2023-09-23 08:36 | XMS_ITS | Encounter Summary ---
Author Name Unknown Organization [facility] Address [address] [place] [address] Care Team Providers Care Piano Instructor Name Role Phone Andrey Tamez MD Primary Care Provider [phone] Bailey Doran MD Primary Care Provider [phone] Andrey Tamez MD Unavailable [phone] Andrey Tamez MD Unavailable [phone] Encounter Details Date Type Department Care Team (Late st Contact Info) Description 09/29/2007 Office Visit-[facility] [address] [phone] Yazan Foreman MD Social History Tobacco Use Types Packs/Day Years Used Date Smoking Tobacco: Former Cigarettes 0.5 16 Q uit: 09/06/1978 Alcohol Use Standard Drinks/Week Comments Yes 10 (1 standard drink = 0.6 oz pu re alcohol) Sex and Gender Information Value Date Recorded Sex Assigned at Male 10/03/2020 10:26 AM PLATE CORRECTOR Gender Identity Male 10/03/2020 10:26 AM PLATE CORRECTOR Sexual Orientation Straight 10/03/2020 10 :26 AM PLATE CORRECTOR documented as of this encounter Progress Notes * Yazan Foreman MD - 09/30/2007 12:08 PM CST Progress Note Created by: Yazan Foreman M.D. DATE: 09/29/2007 RODOLFO HARTLEY DATE OF : 1945 AGE: [age] years old Referring Physician: LASHON FERNÁDNEZ Referring Clinic: [facility] CURRENT DIAGNOSES 1. - CAD, 414.00 2. - Hyperlipidemia, 272.4 3. - Hypertension, benign, 401.1 4. Diabetes Mellitus-NIDD/circ dis/uncont, 250.72 5. AZ-S/P Anterior, 412 6. PTCA-LAD FLORI stent 03/2005 [...] 62-year-old gentleman was seen for follow up of his coronary disease. He is now 21/2 years out from an acute anterior myocardial infarction that was treated with emergent stenting of his LAD. Over [...] no chest discomfort, dyspnea on exertion, chest tightness, arm, neck, or jaw discomfort, or other ischemic symptoms. He is without orthopnea, palpitations, severe dizziness, syncope, or edema. He denies claudication, myalgias, or muscle weakness. He is not taking his blood pressures as regularly as [...] PAST HISTORY Past Medical Illnesses: hyperlipidemia, diabetes naqchxdn-kfa-nwtlkwb dependent, hypertension Past Cardiac Illnesses: chest pain, [...] septal and apical wall motion abnormality noted. SOCIAL HISTORY Alcohol Use - drinks occasionally and wine; Smoking - used to smoke but quit and 1980; Diet - low cholesterol, low sodium (less than 2 grams), low fat Diet and caffeine use-1-2 per day; Lifestyle - ; Exercise - some exercise and gym; Seat Belt Use - always; Occupation - [employer]; Residence - lives with ; Place of - [place]; Hours Worked - 40 hours per week; [...] excursion, no use of accessory muscles <FONT COLOR=#[id number]><FONT POINT=10> CARDIAC regular rhythm, S1 normal, S2 [...] 1 p.o. q.d. #30 Physician Order <FONT COLOR=#[id number]><FONT POINT=10> IMPRESSION/PLAN: 1. Coronary artery disease, status [...] Dyslipidemia, mixed. He previously had been completely atgoal. With his weight gain, his triglycerides have drifted [...] this time. 5. Risk factor intervention. I think that this is generally going well other than his weight gain, which we are going to workon. He is not smoking. His blood pressure has been controlled. Continue to treat the lipids. He is on an exercise program. It was a pleasure seeing this gentleman doing well. I have renewed his medications at this time. I would appreciate seeing him again in a year.<FONT COLOR=#[id number]><FONT POINT=10> TODAYS ORDERS 1. F/U with Yazan Foreman MD 1 year 2. Treadmill Nuclear Study 1 year 3. Lipid profile/ALT 1 year Yazan Foreman M.D. documented in this encounter Plan of Treatment Not on file documented as of this encounter Visit Diagnoses Not on filedocumented in this encounter Care Teams Piano Instructor Relationship Specialty Start Date End Date Andrey Tamez MD PCP - General 03/26/09 Bailey Doran MD [address] , [facility] [address] [place] [address] PCP - General 09/20/00 03/25/09 Andrey Tamez MD [address] [place] [address] PCP - Assigned PCP 09/11/12 11/08/18 Andrey Tamez MD [address] [place] [address] Assigned PCP 09/11/12 09/07/20 documented as of this encounter
--- OUTSIDE RECORDS SUMMARY | 2023-09-23 08:36 | XMS_ITS | Encounter Summary ---
Author Name Unknown Organization [place] Address [address] [place] [address] Care Team Providers Care Plant Tech Name Role Phone Andrey Tamez MD Primary Care Provider [phone] Bailey Doran MD Primary Care Provider [phone] Andrey Tamez MD Unavailable [phone] Andrey Tamez MD Unavailable [phone] Encounter Details Date Type Department Care Team (Late st Contact Info) Description 07/06/2005 Office Visit-[facility] [address] [phone] Unknown, DoctorMD Social History Tobacco Use Types Packs/Day Years Used Date Smoking Tobacco: Former Cigarettes 0.5 16 Q uit: 09/06/1978 Alcohol Use Standard Drinks/Week Comments Yes 10 (1 standard drink = 0.6 oz pu re alcohol) Sex and Gender Information Value Date Recorded Sex Assigned at Male 10/03/2020 10:26 AM FOOD CHEMIST Gender Identity Male 10/03/2020 10:26 AM FOOD CHEMIST Sexual Orientation Straight 10/03/2020 10 :26 AM FOOD CHEMIST documented as of this encounter Progress Notes * Unknown, MD Eleuterio - 07/07/2005 3:35 PM CST Progress Note Created by: Yazan Foreman M.D. DATE: 07/06/2005 RODOLFO HARTLEY DATE OF : 1945 AGE: [age] years old Referring Physician: MERA SHARMA Referring Clinic: [facility] CURRENT DIAGNOSES 1. CA-S/P Anterior, 412 2. PTCA-LAD FLORI stent 03/2005 [...] Followup of - CAD and Followup of CA-S/P Anterior HISTORY OF PRESENT ILLNESS I had the opportunity to see Mr. Hartley today. This 60-year-old gentleman is now almost four months out from his anterior myocardial infarction treated with emergent LAD stenting. He has gone through cardiac rehab and found this very beneficial. He has returned to full activity and does not feel like he has any limitations at this time. He has returned to work. He has maintained an improved lifestyle and understands the importance of exercise and [...] exertion, orthopnea, palpitations, dizziness or syncope or bleedingepisodes. He is checking his blood sugars periodically to follow the control of his type 2 diabetesmellitus and he is losing weight and following [...] post anterior infarction. Currently stable without ischemic heart failure or arrhythmia symptoms. I think he is [...] on filedocumented in this encounter Care Teams Plant Tech Relationship Specialty Start Date End Date Andrey Tamez MD PCP - General 03/26/09 Bailey Doran MD [address], [facility] [address] [place] [address] PCP - General 09/20/00 03/25/09 Andrey Tamez MD [address] [address] PCP - Assigned PCP 09/11/12 11/08/18 Andrey Tamez MD [address] [place] [address] Assigned PCP 09/11/12 09/07/20 documented as of this encounter
--- OUTSIDE RECORDS SUMMARY | 2023-09-23 08:36 | XMS_ITS | Encounter Summary ---
Author Name Unknown Organization [facility] Address [address] [place] [address] Care Team Providers Care Repair Service Dispatcher Name Role Phone Andrey Tamez MD Primary Care Provider [phone] Bailey Doran MD Primary Care Provider [phone] Andrey Tamez MD Unavailable [phone] Andrey Tamez MD Unavailable [phone] Encounter Details Date Type Department Care Team (Late st Contact Info) Description 03/22/2006 Office Visit-[facility] [address] [place] [phone] Unknown, DoctorMD Social History Tobacco Use Types Packs/Day Years Used Date Smoking Tobacco: Former Cigarettes 0.5 16 Q uit: 09/06/1978 Alcohol Use Standard Drinks/Week Comments Yes 10 (1 standard drink = 0.6 oz pu re alcohol) Sex and Gender Information Value Date Recorded Sex Assigned at Male 10/03/2020 10:26 AM AUTO RADIATOR MECHANIC Gender Identity Male 10/03/2020 10:26 AM AUTO RADIATOR MECHANIC Sexual Orientation Straight 10/03/2020 10 :26 AM AUTO RADIATOR MECHANIC documented as of this encounter Progress Notes * Unknown, MD Eleuterio - 03/26/2006 4:26 PM CDT Progress Note Created by: Herminia Franz DATE: 03/22/2006 RODOLFO HARTLEY DATE OF : 1945 AGE: [age] years old Referring Physician: MERA SHARMA Referring Clinic: [facility] CURRENT DIAGNOSES 1. - CAD, 414.00 2. - Hyperlipidemia, 272.4 3. IN-S/P Anterior, 412 4. - Cardiomyopathy Ischemic, 414.8 [...] total cholesterol 141, HDL 41, LDL 75, ratio 3.4, and ALT 23. His LDL goal should be less than 70, although this is improved from previous. He also had a repeat echocardiogram performed. LV thrombus could not be excluded. His ejection fractionwas estimated at 45%, which was an improvement from 35% post IN. There is a trace of mitral regurgitation, [...] Seat Belt Use - always; Occupation - [employer]; Residence - lives with ; Place of [...] has had no symptoms similar to his IN. I would ask him to continue exercising [...] and recheck in six months' time as planned. I think that is reasonable given the fact that his diabetes has been controlled with diet and exercise and remains so today. 3. Possible LV thrombus. This could not be excluded on the recent echocardiogram. It is unlikely as the images are identical to the 2005 images where there was no thrombus identified. I would recommend a repeat echocardiogram with contrast dye to verify. We will have that done sometime in the next two to three [...] with Yazan Foreman MD annual follow up Herminia Franz documented in this encounter Plan of Treatment Not on file documented as of this encounter Visit Diagnoses Not on filedocumented in this encounter Care Teams Repair Service Dispatcher Relationship Specialty Start Date End Date Andrey Tamez MD PCP - General 03/26/09 Bailey Doran MD [address], [facility] [address] [place], [place] [address] PCP - General 09/20/00 03/25/09 Andrey Tamez MD [address] [place] [address] PCP - Assigned PCP 09/11/12 11/08/18 Andrey Tamez MD [address] [place], [place] [address] Assigned PCP 09/11/12 09/07/20 documented as of this encounter
--- OUTSIDE RECORDS SUMMARY | 2023-09-23 08:36 | XMS_ITS | Encounter Summary ---
Author Name Unknown Organization [place] Address [address] [place] [address] Care Team Providers Care Funeral Home Director Name Role Phone Andrey Tamez MD Primary Care Provider [phone] Bailey Doran MD Primary Care Provider [phone] Andrey Tamez MD Unavailable [phone] Andrey Tamez MD Unavailable [phone] Encounter Details Date Type Department Care Team (Late st Contact Info) Description 08/15/2008 Office Visit-[facility] [address] [phone] Yazan Foreman MD Social History Tobacco Use Types Packs/Day Years Used Date Smoking Tobacco: Former Cigarettes 0.5 16 Q uit: 09/06/1978 Alcohol Use Standard Drinks/Week Comments Yes 10 (1 standard drink = 0.6 oz pu re alcohol) Sex and Gender Information Value Date Recorded Sex Assigned at Male 10/03/2020 10:26 AM RIVER CROSSING SUPERVISOR Gender Identity Male 10/03/2020 10:26 AM RIVER CROSSING SUPERVISOR Sexual Orientation Straight 10/03/2020 10 :26 AM RIVER CROSSING SUPERVISOR documented as of this encounter Progress Notes * Yazan Foreman MD - 08/17/2008 2:02 PM CST Progress Note Created by: Yazan Foreman M.D. DATE: 08/15/2008 RODOLFO HARTLEY DATE OF : 1945 AGE: [age] years old Referring Physician/Clinic: [facility] CURRENT DIAGNOSES 1. - CAD, 414.00 2. - Hyperlipidemia, 272.4 3. Cerebral Vascular Accident, 435.9 4. NV-S/P Anterior, 412 5. PTCA-LAD FLORI stent 03/2005 [...] to ramipril. He subsequently underwent NELDA reportedly withoutsignificant findings although I do not have that report and I will obtain it. He has not had any chest, arm, neck, or jaw discomfort, dyspnea on exertion, orthopnea, or edema. He denies palpitations, dizziness, or syncope. He is without myalgias or muscle weakness. Followup lipid profile at this time demonstrates reasonable control with triglycerides of 152, total cholesterol of 153, HDL cholesterol of 47 (which is up), and LDL cholesterol of 76; his ALT is normal. A stress nuclear study shows his prior anteroapical myocardial infarction but no stress-induced ischemia; his ejection fraction was calculated at 49 percent. His blood pressure is controlled today at 122/78. There is no evidence of volume overload. PAST HISTORY Past Medical Illnesses: hyperlipidemia, diabetes xixiqrwg-adt-egfhpgc dependent, hypertension, CVA without residual deficits Past Cardiac Illnesses: chest pain, positive family hx cvd, coronary artery disease, S/P myocardial infarction-2004 Cardiology Procedures-Invasive: cardiac cath (left) March 2005, [...] Seat Belt Use - always; Occupation - [employer]; Residence - lives with ; Place of [...] etiology is unclear but appears to be embolic.Reportedly there was no PFO; I will obtain [...] on filedocumented in this encounter Care Teams Funeral Home Director Relationship Specialty Start Date End Date Andrey Tamez MD PCP - General 03/26/09 Bailey Doran MD [address], [facility] 100 [place] [address] PCP - General 09/20/00 03/25/09 Andrey Tamez MD [address] [facility] 160 [place] [address] PCP - Assigned PCP 09/11/12 11/08/18 Andrey Tamez MD [address] [facility] [address] [place] [address] Assigned PCP 09/11/12 09/07/20 documented as of this encounter
--- OUTSIDE RECORDS SUMMARY | 2023-09-23 08:36 | XMS_ITS | Encounter Summary ---
Author Name Unknown Organization [facility] Address [address] [place] [address] Care Team Providers Care Painter Chassis Name Role Phone Andrey Tamez MD Primary Care Provider [phone] Bailey Doran MD Primary Care Provider [phone] Andrey Tamez MD Unavailable [phone] Andrey Tamez MD Unavailable [phone] Encounter Details Date Type Department Care Team (Late st Contact Info) Description 11/02/2005 Office Visit-[facility] [address] [place] [phone] Unknown, DoctorMD Social History Tobacco Use Types Packs/Day Years Used Date Smoking Tobacco: Former Cigarettes 0.5 16 Q uit: 09/06/1978 Alcohol Use Standard Drinks/Week Comments Yes 10 (1 standard drink = 0.6 oz pu re alcohol) Sex and Gender Information Value Date Recorded Sex Assigned at Male 10/03/2020 10:26 AM GERIATRIC ASSISTANT Gender Identity Male 10/03/2020 10:26 AM GERIATRIC ASSISTANT Sexual Orientation Straight 10/03/2020 10 :26 AM GERIATRIC ASSISTANT documented as of this encounter Progress Notes * Unknown, MD Eleuterio - 11/05/2005 9:44 AM CST Progress Note Created by: Herminia Franz DATE: 11/02/2005 RODOLFO HARTLEY DATE OF : 1945 AGE: [age] years old Referring Physician: MERA SHARMA Referring Clinic: [facility] CURRENT DIAGNOSES 1. - Hyperlipidemia, 272.4 2. VA-S/P Anterior, 412 3. - Cardiomyopathy Ischemic, 414.8 [...] p.o. b.i.d. CHIEF COMPLAINTS f/u CAD, post VA HISTORY OF PRESENT ILLNESS Rodolfo is a [...] His last lipids were mildly elevated with anLDL of 78, although the rest of the [...] gained about 7 pounds. He plans to tryto slowly lose the weight by increasing exercise [...] denies any chest pain similar to his VA. He does have occasional episodes of sharp chest pain which occurred before he had his heart attack. They seem to occur while he is exerting himself and go away as he continues to walk. He describes it as a sharp right or left-sided chest pain which is not associated with other symptoms such as nausea, diaphoresis, or shortness of breath. He denies any PND, orthopnea, or any pedal edema. PAST [...] Seat Belt Use - always; Occupation - [employer]; Residence - lives with ; Place of - [place]; Hours Worked - 40 hours per week; PHYSICAL EXAMINATION VITAL SIGNS: Blood Pressure: 130/80 Sitting, Left arm, large cuff 132/82 Retaken by SUPERINTENDENT MAINTENANCE/PA Pulse- 70.00/min. Weight- 184.00 lbs. Height- 70.00 [...] oriented to time, person and place. <FONT COLOR=#[id number]><FONT POINT=10> MEDICATIONS UPDATED TODAY: IMPRESSIONS/PLAN <FONT COLOR=#[id number]><FONT POINT=10> Coronary artery disease, status post myocardial [...] echocardiogram scheduled. Should he experience problems or concernssooner than that time frame, I have asked him to contact us. Otherwise, we will plan on following up with him after those tests are complete. His next appointment with Dr. Foreman will be scheduled for June,. Thank you very much for allowing me to participate in his care. <FONT COLOR=#[id number]><FONT POINT=10>TODAYS ORDERS 1. Cholesterol Fasting 5 months Herminia Franz documented in this encounter Plan of Treatment Not on file documented as of this encounter Visit Diagnoses Not on filedocumented in this encounter Care Teams Painter Chassis Relationship Specialty Start Date End Date Andrey Tamez MD PCP - General 03/26/09 Bailey Doran MD [address], [address] [address] [place] [address] PCP - General 09/20/00 03/25/09 Andrey Tamez MD [address] [place] [address] PCP - Assigned PCP 09/11/12 11/08/18 Andrey Tamez MD [address] [place] [address] Assigned PCP 09/11/12 09/07/20 documented as of this encounter
== END 2023-09-23 08:32 | disposition home or self-care (01) ==
PROVIDERS: PCP Family Medicine; Visit Provider Family Medicine
DX: D64.9 Anemia, unspecified (principal)
CPT/HCPCS: 82728; 83540

== ENCOUNTER 2024-05-15 08:07 | Outpatient (CLI) | payer OTHER, SELFPAY ==
--- OUTSIDE RECORDS SUMMARY | 2024-05-19 08:41 | XMS_ITS | Encounter Summary ---
Author Organization [facility] Address [address] [place] [address] Care Team Providers Care Software Design Analyst Name Role Phone Andrey Tamez MD Primary Care Provider Andrey Tamez MD Unavailable [phone] Andrey Tamez MD Unavailable [phone] Encounter Details Date Type Department Care Team (Late st Contact Info) Description 07/17/2013 [facility] PHYS STANDARD [address] [place] [phone] Andrey Tamez MD [address] [facility] 160 [place] [address] Social History Tobacco Use Types Packs/Day Years Used Date Smoking Tobacco: Former Cigarettes 0.5 16 0 09/06/1962 - 09/06/1978 Smokeless Tobacco: Never Alcohol Use Standard Drinks/Week Comments Yes 10 (1 standard drink = 0.6 oz pu re alcohol) A drink every 1-2 weeks. Sex and Gender Information Value Date Recorded Sex Assigned at Male 10/03/2020 10:26 AM HEALTH AND NUTRITION SPECIALIST Gender Identity Male 10/03/2020 10:26 AM HEALTH AND NUTRITION SPECIALIST Sexual Orientation Straight 10/03/2020 10 :26 AM HEALTH AND NUTRITION SPECIALIST documented as of this encounter Plan of Treatment Not on file documented as of this encounter Visit Diagnoses Not on filedocumented in this encounter Care Teams Software Design Analyst Relationship Specialty Start Date End Date Andrey Tamez MD PCP - General 03/26/09 Andrey Tamez MD [address] [address] PCP - Assigned PCP 09/11/12 11/08/18 Andrey Tamez MD [address] [address] Assigned PCP 09/11/12 09/07/20 documented as of this encounter
--- OUTSIDE RECORDS SUMMARY | 2024-05-19 08:41 | XMS_ITS | Encounter Summary ---
Author Organization [facility] Address [address] [place] [address] Care Team Providers Care Structural Shop Helper Name Role Phone Andrey Tamez MD Primary Care Provider [phone] Andrey Tamez MD Unavailable [phone] Andrey Tamez MD Unavailable [phone] Encounter Details Date Type Department Care Team (Late st Contact Info) Description 02/07/2015 [facility] Medical Adv[facility] [address] [facility] [address] [place] [address] Andrey Tamez MD [address] [facility] [address] [place] [address] Social History Tobacco Use Types Packs/Day Years Used Date Smoking Tobacco: Former Cigarettes 0.5 16 0 09/06/1962 - 09/06/1978 Smokeless Tobacco: Never Alcohol Use Standard Drinks/Week Comments Yes 10 (1 standard drink = 0.6 oz pu re alcohol) A drink every 1-2 weeks. Sex and Gender Information Value Date Recorded Sex Assigned at Male 10/03/2020 10:26 AM GENERAL ACCOUNTING CLERK Gender Identity Male 10/03/2020 10:26 AM GENERAL ACCOUNTING CLERK Sexual Orientation Straight 10/03/2020 10 :26 AM GENERAL ACCOUNTING CLERK documented as of this encounter Plan of Treatment Not on file documented as of this encounter Visit Diagnoses Not on filedocumented in this encounter Care Teams Structural Shop Helper Relationship Specialty Start Date End Date Andrey Tamez MD PCP - General 03/26/09 Andrey Tamez MD [address] [address] PCP - Assigned PCP 09/11/12 11/08/18 Andrey Tamez MD [address] [address] Assigned PCP 09/11/12 09/07/20 documented as of this encounter
--- OUTSIDE RECORDS SUMMARY | 2024-05-19 08:41 | XMS_ITS | Encounter Summary ---
Author Organization [facility] Address [address] [place] [address] Care Team Providers Care Educational Fundraising Director Name Role Phone Andrey Tamez MD Primary Care Provider Andrey Tamez MD Unavailable [phone] Andrey Tamez MD Unavailable [phone] Encounter Details Date Type Department Care Team (Late st Contact Info) Description 05/14/2013 [facility] Social History Tobacco Use Types Packs/Day Years Used Date Smoking Tobacco: Former Cigarettes 0.5 16 0 09/06/1962 - 09/06/1978 Smokeless Tobacco: Never Alcohol Use Standard Drinks/Week Comments Yes 10 (1 standard drink = 0.6 oz pu re alcohol) A drink every 1-2 weeks. Sex and Gender Information Value Date Recorded Sex Assigned at Male 10/03/2020 10:26 AM STEEL SAMPLER Gender Identity Male 10/03/2020 10:26 AM STEEL SAMPLER Sexual Orientation Straight 10/03/2020 10 :26 AM STEEL SAMPLER documented as of this encounter Plan of Treatment Not on file documented as of this encounter Visit Diagnoses Not on filedocumented in this encounter Care Teams Educational Fundraising Director Relationship Specialty Start Date End Date Andrey Tamez MD PCP - General 03/26/09 Andrey Tamez MD [address] [address] PCP - Assigned PCP 09/11/12 11/08/18 Andrey Tamez MD [address] [address] Assigned PCP 09/11/12 09/07/20 documented as of this encounter
--- OUTSIDE RECORDS SUMMARY | 2024-05-19 08:41 | XMS_ITS | Referral Summary ---
Author Organization [facility] Address [address] [place] [address] Care Team Providers Care Towel Sorter Name Role Phone Andrey Tamez MD Primary Care Provider [phone] Allergies Active Allergy Reactions Criticality Noted Date [...] once daily or as directed. 100 strip prn 01/31/2014 Active Additional Information Patient not taking.Reported [...] 10 MG capsuleIndications: Coronary artery disease involving [place] coronary artery of [place] heart, angina presence unspecified TAKE ONE CAPSULE BY MOUTH TWICE DAILY 180 capsule 1 04/22/2018 Active clopidogrel (PLAVIX) 75 MG tabletIndications:C oronary artery disease involving [place] coronary artery of [place] heart, angina presence unspecified TAKE ONE TABLET BY MOUTH ONE TIME DAILY 90 tablet 1 04/22/2018 Active metoprolol tartrate (LOPRESSOR) 100 MG tabletIndications:C oronary artery disease involving [place] coronary artery of [place] heart, angina presence unspecified TAKE ONE TABLET BY MOUTH TWICE DAILY 180 tablet 1 04/22/2018 Active metFORMIN (GLUCOPHAGE) 500 MG tabletIndications:T ype 2 diabetes mellitus with other circulatory complication, without long-term current use of insulin (H) TAKE ONE TABLET THREE TIMES A DAY WITH MEALS. 270 tablet 04/27/2018 Active blood glucose (ACCU-CHEK SMARTVIEW) test stripIndications:Ty pe 2 diabetes mellitus with other circulatory complication, without long-term current use of insulin (H) Check glucose once daily. Need to schedule office visit with Dr Dashawn MILLS. 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 Provider to review HYPERLIPIDEMIA LDL GOAL <100 07/06/2010 CAD (coronary artery disease) Resolved Problems Problem Noted Date Diagnosed Date Resolved Date Advanced directives, counseling/discussion 02/07/2015 02/21/2024 Overview: Information given to pt to take home and review. 02/07/15 Type 2 diabetes mellitus wit h circulatory disorder 07/06/2010 06/24/2015 Erectile dysfunction 06/10/2010 010 Mixed hyperlipidemia 011 Diabetes mellitus, type 2 Overview: Problem list name updated by automated process. Provider to review Hyperlipidemia 12/10/2010 Overview: Problem list name updated by automated process. Provider to review Immunizations Name Administration Dates Next Due COVID-19 MONOVALENT 12+ (Pfizer) 10/24/2020,09/07 Influenza (High Dose) Trivalent,PF (Fluzone) ,07/08/2013 Influenza (IIV3) PF 07/03/2002 Pneumococcal 23 valent 02/19/2011 TD,PF 7+ (Tenivac) 10/27/2000 10/27/2010 TDAP Vaccine (Adacel) 02/19/2011 Zoster vaccine, live 06/02/2014 Social History Tobacco Use Types Packs/Day Years Used Date Smoking Tobacco: Former Cigarettes 0.5 16 0 09/06/1962 - 09/06/1978 Smokeless Tobacco: Never Tobacco Cessation:Counseling Given: [...] Sex Assigned at Male 10/03/2020 10:26 AM WOODEN FENCE ERECTOR Gender Identity Male 10/03/2020 10:26 AM WOODEN FENCE ERECTOR Sexual Orientation Straight 10/03/2020 10 :26 AM WOODEN FENCE ERECTOR Last Filed Vital Signs Vital Sign Reading Time Taken Comments Blood Pressure 136/70 09/07/2017 8:13 AM WOODEN FENCE ERECTOR Pulse 71 09/07/2017 8:13 AM WOODEN FENCE ERECTOR Temperature 36.7 ??C (98.1 ??F) 09/07/2017 8:13 AM CS T Respiratory Rate 12 02/07/2016 9:09 AM CDT Oxygen Saturation 100% 09/07/2017 8:13 AM WOODEN FENCE ERECTOR Inhaled Oxygen Concentration - - Weight 80.7 kg (178 lb) 09/07/2017 8:13 AM WOODEN FENCE ERECTOR Height 176 cm (5' 9.29) 09/07/2017 8:13 AM WOODEN FENCE ERECTOR Body Mass Index 26.07 09/07/2017 8:13 AM WOODEN FENCE ERECTOR Plan of Treatment Not on file Procedures Procedure Name Priority Date/Time Associated Diagnosis Comments COMPREHENSIVE METABOLIC PANEL Routine 04/28/2018 8:14 AM CDT Hyperlipidemia LDL goal <100 LIPID REFLEX TO DIRECT LDL PANEL Routine 04/28/2018 8:14 AM CDT Hyperlipidemia LDL goal <100 COLONOSCOPY Routine 10/26/2011 9:59 AM WOODEN FENCE ERECTOR from Last 3 Months or Most Recently Relevant to Health Maintenance Results * (ABNORMAL) Lipid panel reflex to direct LDL Fasting (04/28/2018 8:14 AM CDT) Cholesterol 133 <200 mg/dL 04/28/2018 2:06 PM CDT [facility] Triglycerides 191(H) <150 mg/dL 04/28/2018 2:06 PM CDT [facility] Comment: Borderline high: ??150-199 mg/dl High: ? 200-499 mg/dl Very high: ? >499 mg/dl Fasting specimen HDL Cholesterol 36(L) >39 mg/dL 8 2:06 PM CDT [facility] LDL Cholesterol Calculated 59 <100 mg/dL 04/28/2018 2:06 PM CDT [facility] Comment:Desirable: <100 mg/d l Non HDL Cholesterol 97 <130 mg/dL 04/28/2018 2:06 PM CDT [facility] Blood specimen (specimen) 04/28/2018 8:14 AM CDT 04/28/2018 8:19 AM CDT Andrey Tamez MD LAB - BLOOD ORDERABL ES [facility] [address] [place] [address] * (ABNORMAL) Comprehensive metabolic panel (04/28/2018 8:14 AM CDT) Sodium 139 133 - 144 mmol/L 04/28/2018 2:06 PM CDT [facility] Potassium 4.5 3.4 - 5.3 mmol/L 04/28/2018 2:06 PM CDT [facility] Chloride 103 94 - 109 mmol/L 04/28/2018 2:06 PM CDT [facility] Carbon Dioxide 27 20 - 32 mmol/L 04/28/2018 2:06 PM CDT [facility] Anion Gap 9 3 - 14 mmol/L 04/28/2018 2:06 PM CDT [facility] Glucose 140(H) 70 - 99 mg/dL 04/28/2018 2:06 PM CDT [facility] Comment:Fasting specimen Urea Nitrogen 17 7 - 30 mg/dL 04/28/2018 2:06 PM CDT [facility] Creatinine 1.18 0.66 - 1.25 mg/dL 04/28/2018 2:06 PM CDT [facility] GFR Estimate 61 >60 mL/min/1.7 m2 04/28/2018 2:06 PM CDT [facility] Comment:Non GFR Calc GFR Estimate If Black 73 >60 mL/min/1.7 m2 04/28/2018 2:06 PM CDT [facility] Comment: GFR Calc Calcium 9.0 8.5 - 10.1 mg/dL 04/28/2018 2:06 PM CDT [facility] Bilirubin Total 0.5 0.2 - 1.3 mg/dL 04/28/2018 2:06 PM CDT [facility] Albumin 3.7 3.4 - 5.0 g/dL 04/28/2018 2:06 PM CDT [facility] Protein Total 6.7(L) 6.8 - 8.8 g/dL 04/28/2018 2:06 PM CDT [facility] Alkaline Phosphatase 72 40 - 150 U/L 04/28/2018 2:06 PM CDT [facility] ALT 21 0 - 70 U/L 04/28/2018 2:06 PM CDT [facility] AST 16 0 - 45 U/L 04/28/2018 2:06 PM CDT [facility] Blood specimen (specimen) 04/28/2018 8:14 AM CDT 04/28/2018 8:19 AM CDT Andrey Tamez MD LAB - BLOOD ORDERABL ES [facility] [address] [place] [address] * COLONOSCOPY (10/26/2011 9:59 AM WOODEN FENCE ERECTOR) COLONOSCOPY [facility] Patient Name: Rodolfo Quevedo ? Procedure Date: 10/26/2011 9:59:27 AM ? Date of : 1945 ? Admit Type: Outpatient ? Age: 66 ? Gender: Male ? Attending MD: Nicolas Ahumada MD ? Procedure: ?Colonoscopy Indications: ?Screening for colorectal malignant neoplasm Providers: ?Nicolas Cook MD Referring [...] Examination: clear to auscultation. ?- CV Examination: normal. ?- ASA Grade Assessment: I - A normal, healthy ?patient. ?- After reviewing the risks and benefits, the ?patient was deemed in satisfactory condition to ?undergo the procedure. ?- The anesthesia plan was to use moderate ?sedation/analges ia (conscious sedation). ?- Immediately prior to administration of ?medications, the patient was re-assessed for ?adequacy to receive sedatives. ?- The heart rate, respiratory rate, oxygen ?saturations, blood pressure, adequacy of pulmonary ?ventilation, and response to care were monitored ?throughout the procedure. ?- The physical status of the patient [...] ? Findings: ? Internal hemorrhoids were found during retroflexion and were small. The ? exam was otherwise without abnormality. ? Impression: ? - Internal hemorrhoids. ?- The examination was otherwise normal. Recommendation: ? - Repeat colonoscopy in 10 years for screening ?purposes. ?- High fiber diet ? Tayla MAY _ Nicolas Cook MD Signed Date: 10/26/2011 10:46:01 AM Number of Addenda: 0 I was physically present for the entire viewing portion of the exam. Note Initiated On: 10/26/2011 9:59:27 AM Scope Withdrawal Time: 0 hours 7 minutes 3 seconds Total Procedure Duration: 0 hours 11 minutes 28 seconds RADIOLOGY RESULTS 10/26/2011 9:59 AM WOODEN FENCE ERECTOR Andrey Tamez MD PROCEDURES RADIOLOGY RESULTS from Last 3 Months or Most Recently Relevant to Health Maintenance Care Teams Towel Sorter Relationship Specialty Start Date End Date Andrey Tamez MD PCP - General 03/26/09
--- OUTSIDE RECORDS SUMMARY | 2024-05-19 08:41 | XMS_ITS | Encounter Summary ---
Author Organization [facility] Address [address] [place] [address] Care Team Providers Care Tinner Automatic Name Role Phone Andrey Tamez MD Primary Care Provider [phone] Andrey Tamez MD Unavailable [phone] Andrey Tamez MD Unavailable [phone] Reason for Visit * Reason Onset Date Comments Refill Request 01/03/2018 Encounter Details Date Type Department Care Team (Late st Contact Info) Description 01/03/2018 My[facility] Medical Advice [address] [place] [address] Andrey Tamez MD [address] [facility] [address] [place] [address] Refill Request Social History Tobacco Use Types Packs/Day Years Used Date Smoking Tobacco: Former Cigarettes 0.5 16 0 09/06/1962 - 09/06/1978 Smokeless Tobacco: Never Alcohol Use Standard Drinks/Week Comments Yes 10 (1 standard drink = 0.6 oz pu re alcohol) A drink every 1-2 weeks. Sex and Gender Information Value Date Recorded Sex Assigned at Male 10/03/2020 10:26 AM MEDICAL TYPIST Gender Identity Male 10/03/2020 10:26 AM MEDICAL TYPIST Sexual Orientation Straight 10/03/2020 10 :26 AM MEDICAL TYPIST documented as of this encounter Miscellaneous Notes [...] Urine 83 mg/dL 04/28/2018 3:[address] [facility] Albumin Urine mg/L 13 mg/L 04/28/2018 3:[address] [facility] Albumin Urine mg/g Cr 15.64 0 - 17 mg/g Cr 04/28/2018 3:[address] [facility] Urine specimen (specimen) 04/28/2018 8:15 AM CDT 04/28/2018 8:20 AM CDT Andrey Tamez MD LAB - URINE ORDERABL ES [facility] [address] [place] [address] * (ABNORMAL) Lipid panel reflex to direct LDL Fasting (04/28/2018 8:14 AM CDT) Cholesterol 133 <200 mg/dL 04/28/2018 2:[address] [facility] Triglycerides 191(H) <150 mg/dL 04/28/2018 2:[address] [facility] Comment: Borderline high: ??150-199 mg/dl High: ? 200-499 mg/dl Very high: ? >499 mg/dl Fasting specimen HDL Cholesterol 36(L) >39 mg/dL 8 2:[address] [facility] LDL Cholesterol Calculated 59 <100 mg/dL 04/28/2018 2:[address] [facility] Comment:Desirable: <100 mg/d l Non HDL Cholesterol 97 <130 mg/dL 04/28/2018 2:[address] [facility] Blood specimen (specimen) 04/28/2018 8:14 AM CDT 04/28/2018 8:19 AM CDT Andrey Tamez MD LAB - BLOOD ORDERABL ES [facility] [address] [place] [address] * (ABNORMAL) Comprehensive metabolic panel (04/28/2018 8:14 AM CDT) Sodium 139 133 - 144 mmol/L 04/28/2018 2:[address] [facility] Potassium 4.5 3.4 - 5.3 mmol/L 04/28/2018 2:[address] [facility] Chloride 103 94 - 109 mmol/L 04/28/2018 2:[address] [facility] Carbon Dioxide 27 20 - 32 mmol/L 04/28/2018 2:[address] [facility] Anion Gap 9 3 - 14 mmol/L 04/28/2018 2:[address] [facility] Glucose 140(H) 70 - 99 mg/dL 04/28/2018 2:[address] [facility] Comment:Fasting specimen Urea Nitrogen 17 7 - 30 mg/dL 04/28/2018 2:[address] [facility] Creatinine 1.18 0.66 - 1.25 mg/dL 04/28/2018 2:[address] [facility] GFR Estimate 61 >60 mL/min/1.7 m2 04/28/2018 2:[address] [facility] Comment:Non GFR Calc GFR Estimate If Black 73 >60 mL/min/1.7 m2 04/28/2018 2:[address] [facility] Comment: GFR Calc Calcium 9.0 8.5 - 10.1 mg/dL 04/28/2018 2:[address] [facility] Bilirubin Total 0.5 0.2 - 1.3 mg/dL 04/28/2018 2:[address] [facility] Albumin 3.7 3.4 - 5.0 g/dL 04/28/2018 2:[address] [facility] Protein Total 6.7(L) 6.8 - 8.8 g/dL 04/28/2018 2:[address] [facility] Alkaline Phosphatase 72 40 - 150 U/L 04/28/2018 2:[address] [facility] ALT 21 0 - 70 U/L 04/28/2018 2:[address] [facility] AST 16 0 - 45 U/L 04/28/2018 2:[address] [facility] Blood specimen (specimen) 04/28/2018 8:14 AM CDT 04/28/2018 8:19 AM CDT Andrey Tamez MD LAB - BLOOD ORDERABL ES [facility] [address] [place] [address] * (ABNORMAL) Hemoglobin A1c (04/28/2018 8:14 AM CDT) Hemoglobin A1C 7.3(H) 0 - 5.6 % 04/28/2018 8:54 AM CDT [facility] Comment: Normal <5.7% Prediabetes 5.7-6.4% ??Diabetes 6.5% or higher - adopted from ADA consensus guidelines. Blood specimen (specimen) 04/28/2018 8:14 AM CDT 04/28/2018 8:19 AM CDT Andrey Tamez MD LAB - BLOOD ORDERABL ES [facility] [address] [place], [place] [address] documented in this encounter Visit Diagnoses Diagnosis Coronary artery disease involving [place] coronary artery of [place] heart, angina presence unspecified Type 2 diabetes mellitus with other circulatory complication, without long-term current use of insulin (H) Hyperlipidemia LDL goal <100 Other and unspecified hyperlipidemia documented in this encounter Care Teams Tinner Automatic Relationship Specialty Start Date End Date Andrey Tamez MD PCP - General 03/26/09 Andrey Tamez MD [address] [place] [address] PCP - Assigned PCP 09/11/12 11/08/18 Andrey Tamez MD [address] [place] [address] Assigned PCP 09/11/12 09/07/20 documented as of this encounter
--- OUTSIDE RECORDS SUMMARY | 2024-05-19 08:41 | XMS_ITS | Encounter Summary ---
Author Organization [facility] Address [address] [place] [address] Care Team Providers Care Rn Outpatient Surgery Name Role Phone Andrey Tamez MD Primary Care Provider [phone] Andrey Tamez MD Unavailable [phone] Andrey Tamez MD Unavailable [phone] Encounter Details Date Type Department Care Team (Late st Contact Info) Description 06/18/2014 [facility] [place] [place] [facility] [address] [facility] [address] [place] [address] Andrey Tamez MD [address] [facility] [address] [place] [address] Social History Tobacco Use Types Packs/Day Years Used Date Smoking Tobacco: Former Cigarettes 0.5 16 0 09/06/1962 - 09/06/1978 Smokeless Tobacco: Never Alcohol Use Standard Drinks/Week Comments Yes 10 (1 standard drink = 0.6 oz pu re alcohol) A drink every 1-2 weeks. Sex and Gender Information Value Date Recorded Sex Assigned at Male 10/03/2020 10:26 AM SYSTEM DEVELOPER ASSOCIATE MANAGER Gender Identity Male 10/03/2020 10:26 AM SYSTEM DEVELOPER ASSOCIATE MANAGER Sexual Orientation Straight 10/03/2020 10 :26 AM SYSTEM DEVELOPER ASSOCIATE MANAGER documented as of this encounter Plan of Treatment Not on file documented as of this encounter Visit Diagnoses Not on filedocumented in this encounter Care Teams Rn Outpatient Surgery Relationship Specialty Start Date End Date Andrey Tamez MD PCP - General 03/26/09 Andrey Tamez MD [address] [address] PCP - Assigned PCP 09/11/12 11/08/18 Andrey Tamez MD [address] [address] Assigned PCP 09/11/12 09/07/20 documented as of this encounter
--- OUTSIDE RECORDS SUMMARY | 2024-05-19 08:41 | XMS_ITS | Encounter Summary ---
Author Organization [facility] Address [address] [place] [address] Care Team Providers Care [facility] Caretaker Name Role Phone Andrey Tamez MD Primary Care Provider Andrey Tamez MD Unavailable [phone] Andrey Tamez MD Unavailable [phone] Encounter Details Date Type Department Care Team (Late st Contact Info) Description 06/12/2018 [facility] [place] [facility] [address] [facility] [address] [place] [address] Andrey Tamez MD [address] [place] [address] Social History Tobacco Use Types Packs/Day Years Used Date Smoking Tobacco: Former Cigarettes 0.5 16 0 09/06/1962 - 09/06/1978 Smokeless Tobacco: Never Alcohol Use Standard Drinks/Week Comments Yes 10 (1 standard drink = 0.6 oz pu re alcohol) A drink every 1-2 weeks. Sex and Gender Information Value Date Recorded Sex Assigned at Male 10/03/2020 10:26 AM OVER THE HORIZON TARGETING SUPERVISOR Gender Identity Male 10/03/2020 10:26 AM OVER THE HORIZON TARGETING SUPERVISOR Sexual Orientation Straight 10/03/2020 10 :26 AM OVER THE HORIZON TARGETING SUPERVISOR documented as of this encounter Plan of Treatment Not on file documented as of this encounter Visit Diagnoses Not on filedocumented in this encounter Care Teams [facility] Caretaker Relationship Specialty Start Date End Date Andrey Tamez MD PCP - General 03/26/09 Andrey Tamez MD [address] [address] PCP - Assigned PCP 09/11/12 11/08/18 Andrey Tamez MD [address] [address] Assigned PCP 09/11/12 09/07/20 documented as of this encounter
--- OUTSIDE RECORDS SUMMARY | 2024-05-19 08:41 | XMS_ITS | Encounter Summary ---
Author Organization [facility] Address [address] [place] [address] Care Team Providers Care Hand Meat Salter Name Role Phone Andrey Tamez MD Primary Care Provider Andrey Tamez MD Unavailable [phone] Andrey Tamez MD Unavailable [phone] Encounter Details Date Type Department Care Team (Late st Contact Info) Description 03/15/2016 [facility] [place] [facility] [address] [facility] [address] [place] [address] Andrey Tamez MD [address] [place] [address] Social History Tobacco Use Types Packs/Day Years Used Date Smoking Tobacco: Former Cigarettes 0.5 16 0 09/06/1962 - 09/06/1978 Smokeless Tobacco: Never Alcohol Use Standard Drinks/Week Comments Yes 10 (1 standard drink = 0.6 oz pu re alcohol) A drink every 1-2 weeks. Sex and Gender Information Value Date Recorded Sex Assigned at Male 10/03/2020 10:26 AM SOFTWARE DEVELOPMENT TEST ENGINEER Gender Identity Male 10/03/2020 10:26 AM SOFTWARE DEVELOPMENT TEST ENGINEER Sexual Orientation Straight 10/03/2020 10 :26 AM SOFTWARE DEVELOPMENT TEST ENGINEER documented as of this encounter Plan of Treatment Not on file documented as of this encounter Visit Diagnoses Not on filedocumented in this encounter Care Teams Hand Meat Salter Relationship Specialty Start Date End Date Andrey Tamez MD PCP - General 03/26/09 Andrey Tamez MD [address] [address] PCP - Assigned PCP 09/11/12 11/08/18 Andrey Tamez MD [address] [address] Assigned PCP 09/11/12 09/07/20 documented as of this encounter
--- OUTSIDE RECORDS SUMMARY | 2024-05-19 08:41 | XMS_ITS | Encounter Summary ---
Author Organization [facility] Address [address] [place] [address] Care Team Providers Care Pay Station Collector Name Role Phone Andrey Tamez MD Primary Care Provider [phone] Andrey Tamez MD Unavailable [phone] Andrey Tamez MD Unavailable [phone] Encounter Details Date Type Department Care Team (Late st Contact Info) Description 12/29/2015 [facility] [place] [facility] Adv[facility] [address] [facility] [address] [place] [address] Andrey Tamez MD [address] [facility] [address] [place] [address] Social History Tobacco Use Types Packs/Day Years Used Date Smoking Tobacco: Former Cigarettes 0.5 16 0 09/06/1962 - 09/06/1978 Smokeless Tobacco: Never Alcohol Use Standard Drinks/Week Comments Yes 10 (1 standard drink = 0.6 oz pu re alcohol) A drink every 1-2 weeks. Sex and Gender Information Value Date Recorded Sex Assigned at Male 10/03/2020 10:26 AM MECHANICAL HANDYMAN Gender Identity Male 10/03/2020 10:26 AM MECHANICAL HANDYMAN Sexual Orientation Straight 10/03/2020 10 :26 AM MECHANICAL HANDYMAN documented as of this encounter Plan of Treatment Not on file documented as of this encounter Visit Diagnoses Not on filedocumented in this encounter Care Teams Pay Station Collector Relationship Specialty Start Date End Date Andrey Tamez MD PCP - General 03/26/09 Andrey Tamez MD [address] [address] PCP - Assigned PCP 09/11/12 11/08/18 Andrey Tamez MD [address] [address] Assigned PCP 09/11/12 09/07/20 documented as of this encounter
--- OUTSIDE RECORDS SUMMARY | 2024-05-19 08:41 | XMS_ITS | Encounter Summary ---
Author Organization [facility] Address [address] [place] [address] Care Team Providers Care Baler Name Role Phone Andrey Tamez MD Primary Care Provider Andrey Tamez MD Unavailable [phone] Andrey Tamez MD Unavailable [phone] Encounter Details Date Type Department Care Team (Late st Contact Info) Description 09/12/2017 [facility] [address] [facility] [address] [place] [address] Andrey Tamez MD [address] [place] [address] Social History Tobacco Use Types Packs/Day Years Used Date Smoking Tobacco: Former Cigarettes 0.5 16 0 09/06/1962 - 09/06/1978 Smokeless Tobacco: Never Alcohol Use Standard Drinks/Week Comments Yes 10 (1 standard drink = 0.6 oz pu re alcohol) A drink every 1-2 weeks. Sex and Gender Information Value Date Recorded Sex Assigned at Male 10/03/2020 10:26 AM LIFESTYLE BLOCK FARMER Gender Identity Male 10/03/2020 10:26 AM LIFESTYLE BLOCK FARMER Sexual Orientation Straight 10/03/2020 10 :26 AM LIFESTYLE BLOCK FARMER documented as of this encounter Plan of Treatment Not on file documented as of this encounter Visit Diagnoses Not on filedocumented in this encounter Care Teams Baler Relationship Specialty Start Date End Date Andrey Tamez MD PCP - General 03/26/09 Andrey Tamez MD [address] [address] PCP - Assigned PCP 09/11/12 11/08/18 Andrey Tamez MD [address] [address] Assigned PCP 09/11/12 09/07/20 documented as of this encounter
--- OUTSIDE RECORDS SUMMARY | 2024-05-19 08:41 | XMS_ITS | Encounter Summary ---
Author Organization [place] Address [address] [place] [address] Care Team Providers Care Terminal Supervisor Name Role Phone Andrey Tamez MD Primary Care Provider Andrey Tamez MD Unavailable [phone] Andrey Tamez MD Unavailable [phone] Encounter Details Date Type Department Care Team (Late st Contact Info) Description 07/07/2017 [facility] [place] [facility] [address] [place] [address] Andrey Tamez MD [address] [facility] [address] [place] [address] Social History Tobacco Use Types Packs/Day Years Used Date Smoking Tobacco: Former Cigarettes 0.5 16 0 09/06/1962 - 09/06/1978 Smokeless Tobacco: Never Alcohol Use Standard Drinks/Week Comments Yes 10 (1 standard drink = 0.6 oz pu re alcohol) A drink every 1-2 weeks. Sex and Gender Information Value Date Recorded Sex Assigned at Male 10/03/2020 10:26 AM RN AMBULATORY Gender Identity Male 10/03/2020 10:26 AM RN AMBULATORY Sexual Orientation Straight 10/03/2020 10 :26 AM RN AMBULATORY documented as of this encounter Plan of Treatment Not on file documented as of this encounter Visit Diagnoses Not on filedocumented in this encounter Care Teams Terminal Supervisor Relationship Specialty Start Date End Date Andrey Tamez MD PCP - General 03/26/09 Andrey Tamez MD [address] [address] PCP - Assigned PCP 09/11/12 11/08/18 Andrey Tamez MD [address] [address] Assigned PCP 09/11/12 09/07/20 documented as of this encounter
--- OUTSIDE RECORDS SUMMARY | 2024-05-19 08:41 | XMS_ITS | Encounter Summary ---
Author Organization [facility] Address [address] [place] [address] Care Team Providers Care Balloon Seller Name Role Phone Andrey Tamez MD Primary Care Provider Andrey Tamez MD Unavailable [phone] Andrey Tamez MD Unavailable [phone] Encounter Details Date Type Department Care Team (Late st Contact Info) Description 03/25/2012 [facility] [address] [facility] [address] [place] [address] Andrey Tamez MD [address] [place] [address] Social History Tobacco Use Types Packs/Day Years Used Date Smoking Tobacco: Former Cigarettes 0.5 16 0 09/06/1962 - 09/06/1978 Smokeless Tobacco: Never Alcohol Use Standard Drinks/Week Comments Yes 10 (1 standard drink = 0.6 oz pu re alcohol) A drink every 1-2 weeks. Sex and Gender Information Value Date Recorded Sex Assigned at Male 10/03/2020 10:26 AM WILLOW WORKER Gender Identity Male 10/03/2020 10:26 AM WILLOW WORKER Sexual Orientation Straight 10/03/2020 10 :26 AM WILLOW WORKER documented as of this encounter Plan of Treatment Not on file documented as of this encounter Visit Diagnoses Not on filedocumented in this encounter Care Teams Balloon Seller Relationship Specialty Start Date End Date Andrey Tamez MD PCP - General 03/26/09 Andrey Tamez MD [address] [address] PCP - Assigned PCP 09/11/12 11/08/18 Andrey Tamez MD [address] [address] Assigned PCP 09/11/12 09/07/20 documented as of this encounter
--- OUTSIDE RECORDS SUMMARY | 2024-05-19 08:41 | XMS_ITS | Encounter Summary ---
Author Organization [facility] Address [address] [place] [address] Care Team Providers Care Senior Shipping Clerk Name Role Phone Andrey Tamez MD Primary Care Provider [phone] Andrey Tamez MD Unavailable [phone] Andrey Tamez MD Unavailable [phone] Reason for Visit * Reason Comments Medication Refill ACCU-CHEK SMARTVIEW test strip Encounter Details Date Type Department Care Team (Late st Contact Info) Description 10/10/2018 [facility] [address] [facility] [address] [place] [address] Andrey Tamez MD [address] [place] [address] Medication Refill (ACCU-CHEK SMARTVIEW test [...] Sex Assigned at Male 10/03/2020 10:26 AM SAFETY PIN ASSEMBLING MACHINE OPERATOR Gender Identity Male 10/03/2020 10:26 AM SAFETY PIN ASSEMBLING MACHINE OPERATOR Sexual Orientation Straight 10/03/2020 10 :26 AM SAFETY PIN ASSEMBLING MACHINE OPERATOR documented as of this encounter Miscellaneous Notes * Telephone Encounter - Nathalie Jefferson RN - 10/12/2018 3:47 PM SAFETY PIN ASSEMBLING MACHINE OPERATOR Routing refill request to provider for review/approval because: Patient needs to be seen because it has been more than 1 year since last office visit. TY PIN ASSEMBLING MACHINE OPERATOR * Telephone Encounter - Betty Choe - [...] is 18 years of age or older TY PIN ASSEMBLING MACHINE OPERATOR documented in this encounter Plan of Treatment Not on file documented as of this encounter Visit Diagnoses Diagnosis Type 2 diabetes mellitus with other circulatory complication, without long-term current use of insulin (H)- Primary documented in this encounter Care Teams Senior Shipping Clerk Relationship Specialty Start Date End Date Andrey Tamez MD PCP - General 03/26/09 Andrey Tamez MD [address] [address] PCP - Assigned PCP 09/11/12 11/08/18 Andrey Tamez MD [address] [facility] [address] [address] Assigned PCP 09/11/12 09/07/20 documented as of this encounter
--- OUTSIDE RECORDS SUMMARY | 2024-05-19 08:41 | XMS_ITS | Encounter Summary ---
Author Organization [facility] Address [address] [place] [address] Care Team Providers Care Warping Machine Operator Name Role Phone Andrey Tamez MD Primary Care Provider [phone] Andrey Tamez MD Unavailable [phone] Andrey Tamez MD Unavailable [phone] Encounter Details Date Type Department Care Team (Late st Contact Info) Description 10/17/2012 [facility] [address] [facility] [address] [place] [address] Andrey Tamez MD [address] [facility] [place] [address] Social History Tobacco Use Types Packs/Day Years Used Date Smoking Tobacco: Former Cigarettes 0.5 16 0 09/06/1962 - 09/06/1978 Smokeless Tobacco: Never Alcohol Use Standard Drinks/Week Comments Yes 10 (1 standard drink = 0.6 oz pu re alcohol) A drink every 1-2 weeks. Sex and Gender Information Value Date Recorded Sex Assigned at Male 10/03/2020 10:26 AM COUNTER STACKER Gender Identity Male 10/03/2020 10:26 AM COUNTER STACKER Sexual Orientation Straight 10/03/2020 10 :26 AM COUNTER STACKER documented as of this encounter Plan of Treatment Not on file documented as of this encounter Visit Diagnoses Not on filedocumented in this encounter Care Teams Warping Machine Operator Relationship Specialty Start Date End Date Andrey Tamez MD PCP - General 03/26/09 Andrey Tamez MD [address] [address] PCP - Assigned PCP 09/11/12 11/08/18 Andrey Tamez MD [address] [address] Assigned PCP 09/11/12 09/07/20 documented as of this encounter
--- OUTSIDE RECORDS SUMMARY | 2024-05-19 08:41 | XMS_ITS | Encounter Summary ---
Author Organization [facility] Address [address] [place] [address] Care Team Providers Care Sailboat Captain Name Role Phone Andrey Tamez MD Primary Care Provider [phone] Andrey Tamez MD Unavailable [phone] Andrey Tamez MD Unavailable [phone] Encounter Details Date Type Department Care Team (Late st Contact Info) Description 10/05/2016 [facility] Medical Advice [facility] [address] [facility] [address] [place] [address] Andrey Tamez MD [address] [facility] [address] [place] [address] Social History Tobacco Use Types Packs/Day Years Used Date Smoking Tobacco: Former Cigarettes 0.5 16 0 09/06/1962 - 09/06/1978 Smokeless Tobacco: Never Alcohol Use Standard Drinks/Week Comments Yes 10 (1 standard drink = 0.6 oz pu re alcohol) A drink every 1-2 weeks. Sex and Gender Information Value Date Recorded Sex Assigned at Male 10/03/2020 10:[address]IN DRIVER Gender Identity Male 10/03/2020 10:[address]IN DRIVER Sexual Orientation Straight 10/03/2020 10 :[address]IN DRIVER documented as of this encounter Plan of Treatment Not on file documented as of this encounter Visit Diagnoses Not on filedocumented in this encounter Care Teams Sailboat Captain Relationship Specialty Start Date End Date Andrey Tamez MD PCP - General 03/26/09 Andrey Tamez MD [address] [address] PCP - Assigned PCP 09/11/12 11/08/18 Andrey Tamez MD [address] [address] Assigned PCP 09/11/12 09/07/20 documented as of this encounter
--- OUTSIDE RECORDS SUMMARY | 2024-05-19 08:41 | XMS_ITS | Clinical Summary ---
Author Organization [facility] Address [address] [place] [address] Care Team Providers Care Bacon De Rinder Name Role Phone Andrey Tamez MD Primary Care Provider [phone] Allergies Active Allergy Reactions Criticality Noted Date [...] 10 MG capsuleIndications: Coronary artery disease involving miccosukee coronary artery of miccosukee heart, angina presence unspecified TAKE ONE CAPSULE BY MOUTH TWICE DAILY 180 capsule 1 04/22/2018 Active clopidogrel (PLAVIX) 75 MG tabletIndications:C oronary artery disease involving miccosukee coronary artery of mic[place]ukee heart, angina presence unspecified TAKE ONE TABLET BY MOUTH ONE TIME DAILY 90 tablet 1 04/22/2018 Active metoprolol tartrate (LOPRESSOR) 100 MG tabletIndications:C oronary artery disease involving mic[place]ukee coronary artery of mic[place]e heart, angina presence unspecified TAKE ONE TABLET [...] oneal 02/07/2016 Coronary artery disease invo lving miccosukee coronary artery of miccosukee heart, angina presence unspecified 10/18/2015 Overview: Replacing [...] Sex Assigned at Male 10/03/2020 10:26 AM CHILD ATTENDANT Gender Identity Male 10/03/2020 10:26 AM CHILD ATTENDANT Sexual Orientation Straight 10/03/2020 10 :26 AM CHILD ATTENDANT Last Filed Vital Signs Vital Sign Reading Time Taken Comments Blood Pressure 136/70 09/07/2017 8:13 AM CHILD ATTENDANT Pulse 71 09/07/2017 8:13 AM CHILD ATTENDANT Temperature 36.7 ??C (98.1 ??F) 09/07/2017 8:13 AM CS T Respiratory Rate 12 02/07/2016 9:09 AM CDT Oxygen Saturation 100% 09/07/2017 8:13 AM CHILD ATTENDANT Inhaled Oxygen Concentration - - Weight 80.7 kg (178 lb) 09/07/2017 8:13 AM CHILD ATTENDANT Height 176 cm (5' 9.29) 09/07/2017 8:13 AM CHILD ATTENDANT Body Mass Index 26.07 09/07/2017 8:13 AM CHILD ATTENDANT Plan of Treatment Health Maintenance Due Date Last Done Comments ANNUAL REVIEW OF HM ORDERS 1945 HEPATITIS C SCREENING 1963 LUNG CANCER SCREENING 1995 ZOSTER IMMUNIZATION (2 of 3) 07/28/2014 06/02/2014 FALL RISK ASSESSMENT 07/07/2018 07/07/2017, 02/07/2016, 02/07/2015, Additional history exists LIPID 04/28/2019 04/28/2018, 10/2017, 06/18/2017, Additional history exists ADVANCE CARE PLANNING 02/08/2020 02/07/2015, 015 RSV VACCINE (1 - 1-dose 75+ series) 2020 DTAP/TDAP/TD IMMUNIZATION (2 - Td or Tdap) 02/19/2021 02/19/2011, 10/27/2000, 10/27/2000 GLUCOSE 04/28/2021 04/28/2018, 10/2017, 06/18/2017, Additional history exists PHQ-2 (once per calendar year) 2023 09/07/2017, 07/07/2017, 02/07/2016 COVID-19 Vaccine ( - season) 2024 10/24/2020, 10/03/2020 INFLUENZA VACCINE (#1) 2024 0, 06/19/2019, 05/26/2018, Additional history exists COLONOSCOPY Discontinued 10/26/2011, 10/26/2011 COLORECTAL CANCER SCREENING [...] to complete this topic sDNA (Cologuard) Discontinued Procedures Procedure Name Priority Date/Time Associated Diagnosis Comments COMPREHENSIVE METABOLIC PANEL Routine 04/28/2018 8:14 AM CDT Hyperlipidemia LDL goal <100 LIPID REFLEX TO DIRECT LDL PANEL Routine 04/28/2018 8:14 AM CDT Hyperlipidemia LDL goal <100 COLONOSCOPY Routine 10/26/2011 9:59 AM CHILD ATTENDANT from Last 3 Months or Most Recently Relevant to Health Maintenance Results * (ABNORMAL) Lipid panel reflex to direct LDL Fasting (04/28/2018 8:14 AM CDT) Cholesterol 133 <200 mg/dL 04/28/2018 2:[address] [facility] Triglycerides 191(H) <150 mg/dL 04/28/2018 2:[address] [facility] Comment: Borderline high: ??150-199 mg/dl High: ? 200-499 mg/dl Very high: ? >499 mg/dl Fasting specimen HDL Cholesterol 36(L) >39 mg/dL 8 2:[address] [facility] LDL Cholesterol Calculated 59 <100 mg/dL 04/28/2018 2:[address] [facility] Comment:Desirable: <100 mg/d l Non HDL Cholesterol 97 <130 mg/dL 04/28/2018 2:[address] [facility] Blood specimen (specimen) 04/28/2018 8:14 AM CDT 04/28/2018 8:19 AM CDT Andrey Tamez MD LAB - BLOOD ORDERABL ES [facility] [address] [place] [address] * (ABNORMAL) Comprehensive metabolic panel (04/28/2018 8:14 AM CDT) Sodium 139 133 - 144 mmol/L 04/28/2018 2:[address] [facility] Potassium 4.5 3.4 - 5.3 mmol/L 04/28/2018 2:[address] [facility] Chloride 103 94 - 109 mmol/L 04/28/2018 2:[address] [facility] Carbon Dioxide 27 20 - 32 mmol/L 04/28/2018 2:[address] [facility] Anion Gap 9 3 - 14 mmol/L 04/28/2018 2:[address] [facility] Glucose 140(H) 70 - 99 mg/dL 04/28/2018 2:[address] [facility] Comment:Fasting specimen Urea Nitrogen 17 7 - 30 mg/dL 04/28/2018 2:[address] [facility] Creatinine 1.18 0.66 - 1.25 mg/dL 04/28/2018 2:[address] [facility] GFR Estimate 61 >60 mL/min/1.7 m2 04/28/2018 2:[address] [facility] Comment:Non GFR Calc GFR Estimate If Black 73 >60 mL/min/1.7 m2 04/28/2018 2:[address] [facility] Comment: GFR Calc Calcium 9.0 8.5 - 10.1 mg/dL 04/28/2018 2:[address] [facility] Bilirubin Total 0.5 0.2 - 1.3 mg/dL 04/28/2018 2:[address] [facility] Albumin 3.7 3.4 - 5.0 g/dL 04/28/2018 2:[address] [facility] Protein Total 6.7(L) 6.8 - 8.8 g/dL 04/28/2018 2:[address] [facility] Alkaline Phosphatase 72 40 - 150 U/L 04/28/2018 2:[address] [facility] ALT 21 0 - 70 U/L 04/28/2018 2:[address] [facility] AST 16 0 - 45 U/L 04/28/2018 2:[address] [facility] Blood specimen (specimen) 04/28/2018 8:14 AM CDT 04/28/2018 8:19 AM CDT Andrey Tamez MD LAB - BLOOD ORDERABL ES [facility] [address] [place] [address] * COLONOSCOPY (10/26/2011 9:59 AM CHILD ATTENDANT) COLONOSCOPY [facility] Patient Name: Rodolfo Quevedo ? Procedure [...] 28 seconds RADIOLOGY RESULTS 10/26/2011 9:59 AM CHILD ATTENDANT Andrey Tamez MD PROCEDURES RADIOLOGY RESULTS from Last 3 Months or Most Recently Relevant to Health Maintenance Care Teams Bacon De Rinder Relationship Specialty Start Date End Date Andrey Tamez MD [facility] - General 03/26/09
--- OUTSIDE RECORDS SUMMARY | 2024-05-19 08:42 | XMS_ITS | Encounter Summary ---
Author Organization [facility] Address [address] [place] [address] Care Team Providers Care Manager Spa Name Role Phone Andrey Tamez MD Primary Care Provider [phone] Bailey Doran MD Primary Care Provider [phone] Andrey Tamez MD Unavailable [phone] Andrey Tamez MD Unavailable [phone] Encounter Details Date Type Department Care Team (Late st Contact Info) Description 11/02/2005 Office Visit-[facility] [address] [address] Unknown, DoctorMD Social History Tobacco Use Types Packs/Day Years Used Date Smoking Tobacco: Former Cigarettes 0.5 16 0 09/06/1962 - 09/06/1978 Alcohol Use Standard Drinks/Week Comments Yes 10 (1 standard drink = 0.6 oz pu re alcohol) Sex and Gender Information Value Date Recorded Sex Assigned at Male 10/03/2020 10:26 AM HR ASSISTANT Gender Identity Male 10/03/2020 10:26 AM HR ASSISTANT Sexual Orientation Straight 10/03/2020 10 :26 AM HR ASSISTANT documented as of this encounter Progress Notes * Unknown, MD Eleuterio - 11/05/2005 9:44 AM CST Progress Note Created by: Herminia Franz DATE: 11/02/2005 RODOLFO HARTLEY DATE OF : 1945 AGE: [id number] years old Referring Physician: MERA SHARMA Referring Clinic: [facility] CURRENT DIAGNOSES 1. - Hyperlipidemia, 272.4 2. MT-S/P Anterior, 412 3. - Cardiomyopathy Ischemic, 414.8 [...] p.o. b.i.d. CHIEF COMPLAINTS f/u CAD, post MT HISTORY OF PRESENT ILLNESS Rodolfo is a [...] denies any chest pain similar to his MT. He does have occasional episodes of sharp [...] Seat Belt Use - always; Occupation - [employer]; Residence - lives with ; Place of - [place]; Hours Worked - 40 hours per week; PHYSICAL EXAMINATION VITAL SIGNS: Blood Pressure: 130/80 Sitting, Left arm, large cuff 132/82 Retaken by SUPERVISOR SPECIALTY PLANT/PA Pulse- 70.00/min. Weight- 184.00 lbs. Height- 70.00 [...] oriented to time, person and place. <FONT COLOR=#[id number]><FONT POINT=10> MEDICATIONS UPDATED TODAY: IMPRESSIONS/PLAN <FONT COLOR=#[id number]><FONT POINT=10> Coronary artery disease, status post myocardial [...] me to participate in his care. <FONT COLOR=#[id number]><FONT POINT=10>TODAYS ORDERS 1. Cholesterol Fasting 5 months Herminia Franz documented in this encounter Plan of Treatment Not on file documented as of this encounter Visit Diagnoses Not on filedocumented in this encounter Care Teams Manager Spa Relationship Specialty Start Date End Date Andrey Tamez MD PCP - General 03/26/09 Bailey Doran MD [address], [facility] [address] [place] [address] PCP - General 09/20/00 03/25/09 Andrey Tamez MD [address] [place] [address] PCP - Assigned PCP 09/11/12 11/08/18 Andrey Tamez MD [address] [place] [address] Assigned PCP 09/11/12 09/07/20 documented as of this encounter
--- OUTSIDE RECORDS SUMMARY | 2024-05-19 08:42 | XMS_ITS | Encounter Summary ---
Author Organization [facility] Address [address] [place] [address] Care Team Providers Care Heading Repairer Name Role Phone Shane Tamez MD Primary Care Provider [phone] Shane Tamez MD Unavailable [phone] Shane Tamez MD Unavailable [phone] Encounter Details Date Type Department Care Team (Late st Contact Info) Description 04/23/2010 Office Visit-[facility] [address] [place] [address] Yazan Foreman MD Social History Tobacco Use Types Packs/Day Years Used Date Smoking Tobacco: Former Cigarettes 0.5 16 0 09/06/1962 - 09/06/1978 Alcohol Use Standard Drinks/Week Comments Yes 10 (1 standard drink = 0.6 oz pu re alcohol) Sex and Gender Information Value Date Recorded Sex Assigned at Male 10/03/2020 10:26 AM PAPIER MACHE' MOLDER Gender Identity Male 10/03/2020 10:26 AM PAPIER MACHE' MOLDER Sexual Orientation Straight 10/03/2020 10 :26 AM PAPIER MACHE' MOLDER documented as of this encounter Progress Notes * Yazan Foreman MD - 04/28/2010 10:24 AM CDT Progress Note Created by: Yazan Foreman M.D. DATE: 04/23/2010 RODOLFO HARTLEY DATE OF : 1945 AGE: [age] years old Referring Physician: SHANE TAMEZ Referring Clinic: [facility] CURRENT DIAGNOSES 1. - CAD, 414.00 2. [...] PAST HISTORY Past Medical Illnesses: hyperlipidemia, diabetes jjdretzg-[id number] dependent, hypertension, CVA without residual deficits Past [...] Residence - lives withwife; Place of - [place]; Hours Worked - [...] ORDERS 1. F/U with Katy Trevizo, MSN, RESIDENTIAL APPLIANCE REPAIR TECHNICIAN 1 year Yazan Foreman M.D. documented in this encounter Plan of Treatment Not on file documented as of this encounter Visit Diagnoses Not on filedocumented in this encounter Care Teams Heading Repairer Relationship Specialty Start Date End Date Shane Tamez MD PCP - General 03/26/09 Shane Tamez MD Sherine SZYMANSKI [address] [place] [address] PCP - Assigned PCP 09/11/12 11/08/18 Shane Tamez MD [address] [place] [address] Assigned PCP 09/11/12 09/07/20 documented as of this encounter
--- OUTSIDE RECORDS SUMMARY | 2024-05-19 08:42 | XMS_ITS | Encounter Summary ---
Author Organization [place] Address [facility] [place] [address] Care Team Providers Care Street Light Servicer Supervisor Name Role Phone Andrey Tamez MD Primary Care Provider Bailey Doran MD Primary Care Provider [phone] Andrey Tamez MD Unavailable [phone] Andrey Tamez MD Unavailable [phone] Encounter Details Date Type Department Care Team (Late st Contact Info) Description 11/12/[address] [facility] [address] [place] [address] [address] [place] [address] [place] [address] [place] [address] MIXED HYPERLIPIDEMIA; FAMILY HX-CARDIOVAS DIS NEC; DIABETES [...] Sex Assigned at Male 10/03/2020 10:26 AM ASSURANCE ANALYST Gender Identity Male 10/03/2020 10:26 AM ASSURANCE ANALYST Sexual Orientation Straight 10/03/2020 10 :26 AM ASSURANCE ANALYST documented as of this encounter Progress Notes * 11/12/2000 11:59 PM CSTStress Echo for cholesterol, diabetes, family history of coronary artery disease within normal limits documented in this encounter Plan of Treatment Not on file documented as of this encounter Procedures Procedure Name Priority Date/Time Associated Diagnosis Comments ZZC CARDIAC STRESS TST,INTERP/REPT ONLY Routine 11/12/2000 Mixed [...] uncontrolled documented in this encounter Care Teams Street Light Servicer Supervisor Relationship Specialty Start Date End Date Andrey Tamez MD PCP - General 03/26/09 Bailey Doran MD [address], [facility] [address] [place] [address] PCP - General 09/20/00 03/25/09 Andrey Tamez MD [address] [place] [address] PCP - Assigned PCP 09/11/12 11/08/18 Andrey Tamez MD [address] [place], [place] [address] Assigned PCP 09/11/12 09/07/20 documented as of this encounter
--- OUTSIDE RECORDS SUMMARY | 2024-05-19 08:42 | XMS_ITS | Encounter Summary ---
Author Organization [facility] Address [address] [place] [address] Care Team Providers Care Dredge Operator Name Role Phone Andrey Tamez MD Primary Care Provider [phone] Andrey Tamez MD Unavailable [phone] Andrey Tamez MD Unavailable [phone] Reason for Visit * Reason Onset Date Comments Nurse Advice Line 09/07/2011 Encounter Details Date Type Department Care Team (Late st Contact Info) Description 09/07/2011 Telephone [employer] [address] [facility] [address] [place] [address] Andrey Tamez MD [address] [place] [address] Nurse Advice Line Social History Tobacco Use Types Packs/Day Years Used Date Smoking Tobacco: Former Cigarettes 0.5 16 0 09/06/1962 - 09/06/1978 Alcohol Use Standard Drinks/Week Comments Yes 10 (1 standard drink = 0.6 oz pu re alcohol) A drink every 1-2 weeks. Sex and Gender Information Value Date Recorded Sex Assigned at Male 10/03/2020 10:26 AM MEDIA LAW FACULTY MEMBER Gender Identity Male 10/03/2020 10:26 AM MEDIA LAW FACULTY MEMBER Sexual Orientation Straight 10/03/2020 10 :26 AM MEDIA LAW FACULTY MEMBER documented as of this encounter Miscellaneous Notes * Telephone Encounter - Nahomi Niño - 09/07/2011 11:08 AM CST [facility] Triage Call Report Patient Name: Rodolfo Quevedo Call Date & Time: 09/07/2011 9:20:27AM Patient PCP Name: Andrey Tamez Patient Address: [address] [place] [id number] Patient Date of : 1945 Age: 66 yr. Patient Gender: Male Network Mgr Name: Shiela Slaughter Presenting Problem: I had [...] air. Be sure to clean according to shank pinner's instructions. - May inhale steam from hot [...] Medication Note: Allergy: Reaction: Procedure: Procedure Note: A LAW FACULTY MEMBER documented in this encounter Plan of Treatment Not on file documented as of this encounter Visit Diagnoses Not on filedocumented in this encounter Care Teams Dredge Operator Relationship Specialty Start Date End Date Andrey Tamez MD PCP - General 03/26/09 Andrey Tamez MD [address] [address] [facility] 160 [place] [address] PCP - Assigned PCP 09/11/12 11/08/18 Andrey Tamez MD [address] [facility] [address] [place] [address] Assigned PCP 09/11/12 09/07/20 documented as of this encounter
--- OUTSIDE RECORDS SUMMARY | 2024-05-19 08:42 | XMS_ITS | Encounter Summary ---
Author Organization [facility] Address [address] [place] [address]. [place] [address] Care Team Providers Care Sales Representative Trainee Name Role Phone Andrey Tamez MD Primary Care Provider Andrey Tamez MD Unavailable [phone] Andrey Tamez MD Unavailable [phone] Encounter Details Date Type Department Care Team (Late st Contact Info) Description 09/18/2009 Office Visit-[facility] [place] [address] [facility] [address] [place] [address] Katy Trevizo, LINING PRINTER [facility] [address] [facility] [address] [place] [id number] Social History Tobacco Use Types Packs/Day Years Used Date Smoking Tobacco: Former Cigarettes 0.5 16 0 09/06/1962 - 09/06/1978 Alcohol Use Standard Drinks/Week Comments Yes 10 (1 standard drink = 0.6 oz pu re alcohol) Sex and Gender Information Value Date Recorded Sex Assigned at Male 10/03/2020 10:26 AM PAY STATION ATTENDANT Gender Identity Male 10/03/2020 10:26 AM PAY STATION ATTENDANT Sexual Orientation Straight 10/03/2020 10 :26 AM PAY STATION ATTENDANT documented as of this encounter Progress Notes * Katy Trevizo NP - 09/19/2009 2:22 PM CST Progress Note Created by: Katy Trevizo N.P. [id number] DATE: 09/18/2009 RODOLFO HARTLEY DATE OF : 1945 AGE: [age] years old Referring Physician: LAURA RESTREPO Referring Clinic: [facility] CURRENT DIAGNOSES 1. [...] delightful 64-year-old male who presents to the [facility] today for a followup visit. [...] PAST HISTORY Past Medical Illnesses: hyperlipidemia, diabetes awvsbsjj-cfc-jrzsdue dependent, hypertension, CVA without residual deficits Past [...] Seat Belt Use - always; Occupation - [employer]; Residence - lives with ; Place of - [place]; Hours Worked - 40 hours per week; [...] filedocumented in this encounter Care Teams Sales Representative Trainee Relationship Specialty Start Date End Date Andrey Tamez MD PCP - General 03/26/09 Andrey Tamez MD [address] [place] [address] PCP - Assigned PCP 09/11/12 11/08/18 Andrey Tamez MD [address] [place] [address] Assigned PCP 09/11/12 09/07/20 documented as of this encounter
--- OUTSIDE RECORDS SUMMARY | 2024-05-19 08:42 | XMS_ITS | Encounter Summary ---
Author Organization [facility] Address [address] [place] [address] Care Team Providers Care Beef Cattle Farmer Name Role Phone Andrey Tamez MD Primary Care Provider [phone] Bailey Doran MD Primary Care Provider [phone] Andrey Tamez MD Unavailable [phone] Andrey Tamez MD Unavailable [phone] Encounter Details Date Type Department Care Team (Late st Contact Info) Description 07/06/2005 Office Visit-[facility] [address] [address] Unknown, DoctorMD Social History Tobacco Use Types Packs/Day Years Used Date Smoking Tobacco: Former Cigarettes 0.5 16 0 09/06/1962 - 09/06/1978 Alcohol Use Standard Drinks/Week Comments Yes 10 (1 standard drink = 0.6 oz pu re alcohol) Sex and Gender Information Value Date Recorded Sex Assigned at Male 10/03/2020 10:26 AM FILLETER Gender Identity Male 10/03/2020 10:26 AM FILLETER Sexual Orientation Straight 10/03/2020 10 :26 AM FILLETER documented as of this encounter Progress Notes * Unknown, MD Eleuterio - 07/07/2005 3:35 PM CST Progress Note Created by: Yazan Foreman M.D. DATE: 07/06/2005 RODOLFO HARTLEY DATE OF : 1945 AGE: [age] years old Referring Physician: MERA SHARMA Referring Clinic: [facility] CURRENT DIAGNOSES 1. KY-S/P Anterior, 412 2. PTCA-LAD FLORI stent 03/2005 [...] Followup of - CAD and Followup of KY-S/P Anterior HISTORY OF PRESENT ILLNESS I had [...] filedocumented in this encounter Care Teams Beef Cattle Farmer Relationship Specialty Start Date End Date Andrey Tamez MD PCP - General 03/26/09 Bailey Doran MD [address], [email or web address] [address] [place] [address] PCP - General 09/20/00 03/25/09 Andrey Tamez MD [address] [place] [address] PCP - Assigned PCP 09/11/12 11/08/18 Andrey Tamez MD [address] [place] [address] Assigned PCP 09/11/12 09/07/20 documented as of this encounter
--- OUTSIDE RECORDS SUMMARY | 2024-05-19 08:42 | XMS_ITS | Encounter Summary ---
Author Organization [facility] Address [address] [place] [address] Care Team Providers Care Barrel Rifler Broach Name Role Phone Andrey Tamez MD Primary Care Provider [phone] Andrey Tamez MD Unavailable [phone] Andrey Tamez MD Unavailable [phone] Reason for Visit * Reason Onset Date Comments Pending Orders/need approval 03/21/2012 LAB ORDERS Encounter Details Date Type Department Care Team (Late st Contact Info) Description 03/21/2012 Telephone [facility] [address] [place] [address] Andrey Tamez MD [address] [facility] 160 [place] [address] Pending Orders/need approval (LAB ORDERS) [...] Sex Assigned at Male 10/03/2020 10:26 AM AMUSEMENT PARK RIDE MECHANIC Gender Identity Male 10/03/2020 10:26 AM AMUSEMENT PARK RIDE MECHANIC Sexual Orientation Straight 10/03/2020 10 :26 AM AMUSEMENT PARK RIDE MECHANIC documented as of this encounter Plan of Treatment Not on file documented as of this encounter Visit Diagnoses Diagnosis Type 2 diabetes, HbA1C goal < 8% (H)- Primary Type II or unspecified type diabetes mellitus without mention of complication, not stated as uncontrolled documented in this encounter Care Teams Barrel Rifler Broach Relationship Specialty Start Date End Date Andrey Tamez MD PCP - General 03/26/09 Andrey Tamez MD [address] [place] [address] PCP - Assigned PCP 09/11/12 11/08/18 Andrey Tamez MD [address] [place] [address] Assigned PCP 09/11/12 09/07/20 documented as of this encounter
--- OUTSIDE RECORDS SUMMARY | 2024-05-19 08:42 | XMS_ITS | Encounter Summary ---
Author Organization [facility] Address [address] [place] [address] Care Team Providers Care Warehouse Unloader Name Role Phone Andrey Tamez MD Primary Care Provider [phone] Bailey Doran MD Primary Care Provider [phone] Andrey Tamez MD Unavailable [phone] Andrey Tamez MD Unavailable [phone] Encounter Details Date Type Department Care Team (Late st Contact Info) Description 08/15/2008 Office Visit-[facility] [address] [phone] Yazan Foreman MD Social History Tobacco Use Types Packs/Day Years Used Date Smoking Tobacco: Former Cigarettes 0.5 16 0 09/06/1962 - 09/06/1978 Alcohol Use Standard Drinks/Week Comments Yes 10 (1 standard drink = 0.6 oz pu re alcohol) Sex and Gender Information Value Date Recorded Sex Assigned at Male 10/03/2020 10:26 AM DIRECTOR OF RESOURCE DEVELOPMENT Gender Identity Male 10/03/2020 10:26 AM DIRECTOR OF RESOURCE DEVELOPMENT Sexual Orientation Straight 10/03/2020 10 :26 AM DIRECTOR OF RESOURCE DEVELOPMENT documented as of this encounter Progress Notes * Yazan Foreman MD - 08/17/2008 2:02 PM CST Progress Note Created by: Yazan Foreman M.D. DATE: 08/15/2008 RODOLFO HARTLEY DATE OF : 1945 AGE: [age] years old Referring Physician/Clinic: [facility] CURRENT DIAGNOSES 1. - CAD, 414.00 2. - Hyperlipidemia, 272.4 3. Cerebral Vascular Accident, 435.9 4. AR-S/P Anterior, 412 5. PTCA-LAD FLORI stent 03/2005 [...] PAST HISTORY Past Medical Illnesses: hyperlipidemia, diabetes umcydkcs-nkk-rpodvmb dependent, hypertension, CVA without residual deficits Past [...] Seat Belt Use - always; Occupation - [employer]; Residence - lives with ; Place of [...] on filedocumented in this encounter Care Teams Warehouse Unloader Relationship Specialty Start Date End Date Andrey Tamez MD PCP - General 03/26/09 Bailey Doran MD [address], [address] [place] [address] PCP - General 09/20/00 03/25/09 Andrey Tamez MD [address] [facility] 160 [place] [address] PCP - Assigned PCP 09/11/12 11/08/18 Andrey Tamez MD [address] [facility] 160 [place] [address] Assigned PCP 09/11/12 09/07/20 documented as of this encounter
--- OUTSIDE RECORDS SUMMARY | 2024-05-19 08:42 | XMS_ITS | Encounter Summary ---
Author Organization [facility] Address [address] [place] [address] Care Team Providers Care Pole Climber Name Role Phone Andrey Tamez MD Primary Care Provider [phone] Andrey Tamez MD Unavailable [phone] Andrey Tamez MD Unavailable [phone] Encounter Details Date Type Department Care Team (Late st Contact Info) Description 03/02/2011 [facility] Medical Advice [facility] [address] [facility] [address] [place] [address] Andrey Tamez MD [address] [facility] [address] [place] [address] Social History Tobacco Use Types Packs/Day Years Used Date Smoking Tobacco: Former Cigarettes 0.5 16 0 09/06/1962 - 09/06/1978 Alcohol Use Standard Drinks/Week Comments Yes 10 (1 standard drink = 0.6 oz pu re alcohol) A drink every 1-2 weeks. Sex and Gender Information Value Date Recorded Sex Assigned at Male 10/03/2020 10:26 AM SHREDDER OPERATOR Gender Identity Male 10/03/2020 10:26 AM SHREDDER OPERATOR Sexual Orientation Straight 10/03/2020 10 :26 AM SHREDDER OPERATOR documented as of this encounter Plan of Treatment Not on file documented as of this encounter Visit Diagnoses Not on filedocumented in this encounter Care Teams Pole Climber Relationship Specialty Start Date End Date Andrey Tamez MD PCP - General 03/26/09 Andrey Tamez MD [address] [address] PCP - Assigned PCP 09/11/12 11/08/18 Andrey Tamez MD [address] [address] Assigned PCP 09/11/12 09/07/20 documented as of this encounter
--- OUTSIDE RECORDS SUMMARY | 2024-05-19 08:42 | XMS_ITS | Encounter Summary ---
Author Organization [facility] Address [address] [place] [address] Care Team Providers Care Relief Mate Name Role Phone Andrey Tamez MD Primary Care Provider [phone] Bailey Doran MD Primary Care Provider [phone] Andrey Tamez MD Unavailable [phone] Andrey Tamez MD Unavailable [phone] Encounter Details Date Type Department Care Team (Late st Contact Info) Description 03/22/2006 Office Visit-[facility] [address] [address] Unknown, DoctorMD Social History Tobacco Use Types Packs/Day Years Used Date Smoking Tobacco: Former Cigarettes 0.5 16 0 09/06/1962 - 09/06/1978 Alcohol Use Standard Drinks/Week Comments Yes 10 (1 standard drink = 0.6 oz pu re alcohol) Sex and Gender Information Value Date Recorded Sex Assigned at Male 10/03/2020 10:26 AM DIRECTOR GROUP SALES Gender Identity Male 10/03/2020 10:26 AM DIRECTOR GROUP SALES Sexual Orientation Straight 10/03/2020 10 :26 AM DIRECTOR GROUP SALES documented as of this encounter Progress Notes * Unknown, MD Eleuterio - 03/26/2006 4:26 PM CDT Progress Note Created by: Herminia Franz DATE: 03/22/2006 RODOLFO HARTLEY DATE OF : 1945 AGE: [age] years old Referring Physician: MERA SHARMA Referring Clinic: [facility] CURRENT DIAGNOSES 1. - CAD, 414.00 2. - Hyperlipidemia, 272.4 3. NE-S/P Anterior, 412 4. - Cardiomyopathy Ischemic, 414.8 [...] which was an improvement from 35% post NE. There is a trace of mitral regurgitation, [...] Seat Belt Use - always; Occupation - [employer]; Residence - lives with ; Place of [...] has had no symptoms similar to his NE. I would ask him to continue exercising [...] on filedocumented in this encounter Care Teams Relief Mate Relationship Specialty Start Date End Date Andrey Tamez MD PCP - General 03/26/09 Bailey Doran MD [address], [address] [place], [place] [address] PCP - General 09/20/00 03/25/09 Andrey Tamez MD [address] [place] [address] PCP - Assigned PCP 09/11/12 11/08/18 Andrey Tamez MD [address] [place] [address] Assigned PCP 09/11/12 09/07/20 documented as of this encounter
--- OUTSIDE RECORDS SUMMARY | 2024-05-19 08:42 | XMS_ITS | Encounter Summary ---
Author Organization [facility] Address [address] [place] [address] Care Team Providers Care Plant And Maintenance Technician Name Role Phone Andrey Tamez MD Primary Care Provider [phone] Bailey Doran MD Primary Care Provider [phone] Andrey Tamez MD Unavailable [phone] Andrey Tamez MD Unavailable [phone] Encounter Details Date Type Department Care Team (Late st Contact Info) Description 03/30/2005 Office Visit-[facility] [address] [address] Unknown, DoctorMD Social History Tobacco Use Types Packs/Day Years Used Date Smoking Tobacco: Former Cigarettes 0.5 16 0 09/06/1962 - 09/06/1978 Alcohol Use Standard Drinks/Week Comments Yes 10 (1 standard drink = 0.6 oz pu re alcohol) Sex and Gender Information Value Date Recorded Sex Assigned at Male 10/03/2020 10:26 AM TUMBLER MACHINE OPERATOR HELPER Gender Identity Male 10/03/2020 10:26 AM TUMBLER MACHINE OPERATOR HELPER Sexual Orientation Straight 10/03/2020 10 :26 AM TUMBLER MACHINE OPERATOR HELPER documented as of this encounter Progress Notes * Unknown, MD Eleuterio - 04/01/2005 9:18 AM CDT Progress Note Created by: Vanessa Peters PA-C DATE: 03/30/2005 [id number] RODOLFO HARTLEY DATE OF : 1945 AGE: [age] years old Referring Physician: MERA ANGULO Referring Clinic: [facility] CURRENT DIAGNOSES 1. LA-Acute Anterior, 410.11 2. [...] to [facility] today for a follow-up visit regarding his recent hospitalization. 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 as he seems [...] Seat Belt Use - always; Occupation - [employer]; Residence - lives with ; Place of [...] filedocumented in this encounter Care Teams Plant And Maintenance Technician Relationship Specialty Start Date End Date Andrey Tamez MD PCP - General 03/26/09 Bailey Doran MD [address], [address] [place] [address] PCP - General 09/20/00 03/25/09 Andrey Tamez MD [address] [facility] 160 [place] [address] PCP - Assigned PCP 09/11/12 11/08/18 Andrey Tamez MD [address] [place] [address] Assigned PCP 09/11/12 09/07/20 documented as of this encounter
--- OUTSIDE RECORDS SUMMARY | 2024-05-19 08:42 | XMS_ITS | Encounter Summary ---
Author Organization [facility] Address [address] [place] [address]. [place] [address] Care Team Providers Care Airplane Tube Builder Name Role Phone nAdrey Tamez MD Primary Care Provider Andrey Tamez MD Unavailable [phone] Andrey Tamez MD Unavailable [phone] Encounter Details Date Type Department Care Team (Late st Contact Info) Description 10/09/2009 Office Visit-[facility] [place] [address] [facility] [address] [place] [address] Katy Trevizo, CASING FINISHER AND STUFFER [facility] [address] [facility] [address] [place] [address] Social History Tobacco Use Types Packs/Day Years Used Date Smoking Tobacco: Former Cigarettes 0.5 16 0 09/06/1962 - 09/06/1978 Alcohol Use Standard Drinks/Week Comments Yes 10 (1 standard drink = 0.6 oz pu re alcohol) Sex and Gender Information Value Date Recorded Sex Assigned at Male 10/03/2020 10:26 AM ASSEMBLER BILLIARD TABLE Gender Identity Male 10/03/2020 10:26 AM ASSEMBLER BILLIARD TABLE Sexual Orientation Straight 10/03/2020 10 :26 AM ASSEMBLER BILLIARD TABLE documented as of this encounter Progress Notes * Katy Trevizo NP - 10/14/2009 11:28 AM CST Progress Note Created by: Ktay Trevizo N.P. [id number] DATE: 10/09/2009 RODOLFO HARTLEY DATE OF : 1945 AGE: [age] years old Referring Physician: LAURA RESTREPO Referring Clinic: [facility] CURRENT DIAGNOSES 1. [...] delightful 54-year-old male who presents to the [facility] today for a followup visit. [...] PAST HISTORY Past Medical Illnesses: hyperlipidemia, diabetes aynmwepn-bgv-kcmxohi dependent, hypertension, CVA without residual deficits Past [...] Seat Belt Use - always; Occupation - [employer]; Residence - lives with ; Place of - [place]; Hours Worked - 40 hours per week; [...] on filedocumented in this encounter Care Teams Airplane Tube Builder Relationship Specialty Start Date End Date Andrey Tamez MD PCP - General 03/26/09 Andrey Tamez MD [address] [address] PCP - Assigned PCP 09/11/12 11/08/18 Andrey Tamez MD [address] [place] [address] Assigned PCP 09/11/12 09/07/20 documented as of this encounter
--- OUTSIDE RECORDS SUMMARY | 2024-05-19 08:42 | XMS_ITS | Encounter Summary ---
Author Organization [facility] Address [address] [place] [address] Care Team Providers Care Anesthesia Resident Name Role Phone Andrey Tamez MD Primary Care Provider [phone] Bailey Doran MD Primary Care Provider [phone] Andrey Tamez MD Unavailable [phone] Andrey Tamez MD Unavailable [phone] Encounter Details Date Type Department Care Team (Late st Contact Info) Description 09/29/2007 Office Visit-[facility] [address] [phone] Yazan Foreman MD Social History Tobacco Use Types Packs/Day Years Used Date Smoking Tobacco: Former Cigarettes 0.5 16 0 09/06/1962 - 09/06/1978 Alcohol Use Standard Drinks/Week Comments Yes 10 (1 standard drink = 0.6 oz pu re alcohol) Sex and Gender Information Value Date Recorded Sex Assigned at Male 10/03/2020 10:26 AM WINTER SPORTS MANAGER Gender Identity Male 10/03/2020 10:26 AM WINTER SPORTS MANAGER Sexual Orientation Straight 10/03/2020 10 :26 AM WINTER SPORTS MANAGER documented as of this encounter Progress [...] 401.1 4. Diabetes Mellitus-NIDD/circ dis/uncont, 250.72 5. DE-S/P Anterior, 412 6. PTCA-LAD FLORI stent 03/2005 [...] PAST HISTORY Past Medical Illnesses: hyperlipidemia, diabetes kxdnglgn-zam-djjubwt dependent, hypertension Past Cardiac Illnesses: chest pain, [...] Seat Belt Use - always; Occupation - [employer]; Residence - lives with ; Place of - [place]; Hours Worked - 40 hours per [...] excursion, no use of accessory muscles <FONT COLOR=#[id number]><FONT POINT=10> CARDIAC regular rhythm, S1 normal, S2 [...] 1 p.o. q.d. #30 Physician Order <FONT COLOR=#[id number]><FONT POINT=10> IMPRESSION/PLAN: 1. Coronary artery disease, status [...] appreciate seeing him again in a year.<FONT COLOR=#[id number]><FONT POINT=10> TODAYS ORDERS 1. F/U with Yazan Foreman MD 1 year 2. Treadmill Nuclear Study 1 year 3. Lipid profile/ALT 1 year Yazan Foreman M.D. documented in this encounter Plan of Treatment Not on file documented as of this encounter Visit Diagnoses Not on filedocumented in this encounter Care Teams Anesthesia Resident Relationship Specialty Start Date End Date Andrey Tamez MD PCP - General 03/26/09 Bailey Doran MD [address] [facility] 100 [place] [address] PCP - General 09/20/00 03/25/09 Andrey Tamez MD [address] [place] [address] PCP - Assigned PCP 09/11/12 11/08/18 Andrey Tamez MD [address] [place] [address] Assigned PCP 09/11/12 09/07/20 documented as of this encounter
--- OUTSIDE RECORDS SUMMARY | 2024-05-19 08:42 | XMS_ITS | Encounter Summary ---
Author Organization [facility] Address [address] [place] [address] Care Team Providers Care Underground Mine Machinery Mechanic Name Role Phone Andrey Tamez MD Primary Care Provider Andrey Tamez MD Unavailable [phone] Andrey Tamez MD Unavailable [phone] Encounter Details Date Type Department Care Team (Late st Contact Info) Description 02/19/2011 [facility] Medical Advice [facility] [address] [facility] [address] [place] [address] Andrey Tamez MD [address] [facility] [address] [place] [address] Social History Tobacco Use Types Packs/Day Years Used Date Smoking Tobacco: Former Cigarettes 0.5 16 0 09/06/1962 - 09/06/1978 Alcohol Use Standard Drinks/Week Comments Yes 10 (1 standard drink = 0.6 oz pu re alcohol) A drink every 1-2 weeks. Sex and Gender Information Value Date Recorded Sex Assigned at Male 10/03/2020 10:26 AM DIRECTOR OF FINANCIAL AID Gender Identity Male 10/03/2020 10:26 AM DIRECTOR OF FINANCIAL AID Sexual Orientation Straight 10/03/2020 10 :26 AM DIRECTOR OF FINANCIAL AID documented as of this encounter Plan of Treatment Not on file documented as of this encounter Visit Diagnoses Not on filedocumented in this encounter Care Teams Underground Mine Machinery Mechanic Relationship Specialty Start Date End Date Andrey Tamez MD PCP - General 03/26/09 Andrey Tamez MD [address] [address] PCP - Assigned PCP 09/11/12 11/08/18 Andrey Tamez MD [address] [address] Assigned PCP 09/11/12 09/07/20 documented as of this encounter
== END 2024-05-15 08:08 | disposition home or self-care (01) ==
LOC: NFLDREF 05-19 08:38
PROVIDERS: PCP Family Medicine; Referring Provider Family Medicine; Visit Provider Family Medicine
DX: E11.40 Type 2 diabetes mellitus with diabetic neuropathy, unspecified (principal); E78.5 Hyperlipidemia, unspecified; N28.9 Disorder of kidney and ureter, unspecified; I10 Essential (primary) hypertension; Z79.84 Long term (current) use of oral hypoglycemic drugs; Z12.5 Encounter for screening for malignant neoplasm of prostate; Z13.21 Encounter for screening for nutritional disorder
CPT/HCPCS: 80053; 80061; 82043; 82570; 82607; G0103

== ENCOUNTER 2024-10-06 08:11 | Outpatient (CLI) | payer OTHER, SELFPAY | END 2024-10-06 08:12 | disposition home or self-care (01) | PROVIDERS: PCP Family Medicine; Visit Provider Family Medicine | DX: N28.9 Disorder of kidney and ureter, unspecified (principal); I10 Essential (primary) hypertension; E08.40 Diabetes mellitus due to underlying condition with diabetic neuropathy, unspecified; D64.9 Anemia, unspecified | CPT/HCPCS: 80069; 82728; 83540 ==

== ENCOUNTER 2024-11-17 09:26 | Outpatient (CLI) | payer OTHER, SELFPAY | END 2024-11-17 09:27 | disposition home or self-care (01) | PROVIDERS: PCP Family Medicine; Visit Provider Family Medicine | DX: I10 Essential (primary) hypertension (principal); D64.9 Anemia, unspecified; N28.9 Disorder of kidney and ureter, unspecified | CPT/HCPCS: 80048 ==

== ENCOUNTER 2024-11-20 09:40 | Outpatient (CLI) | payer OTHER, SELFPAY | END 2024-11-20 09:41 | disposition home or self-care (01) | LOC: NFLDREF 11-21 06:05 | PROVIDERS: PCP Family Medicine; Referring Provider Family Medicine; Visit Provider Family Medicine | DX: N28.9 Disorder of kidney and ureter, unspecified (principal); D64.9 Anemia, unspecified; I10 Essential (primary) hypertension | CPT/HCPCS: 82570; 84156 ==

== ENCOUNTER 2024-12-26 13:49 | Outpatient (CLI) | payer OTHER, SELFPAY | END 2024-12-26 13:50 | disposition home or self-care (01) | LOC: NFLDREF 12-27 03:29 | PROVIDERS: PCP Family Medicine; Referring Provider Family Medicine; Visit Provider Internal Medicine Nephrology | DX: I12.9 Hypertensive chronic kidney disease with stage 1 through stage 4 chronic kidney disease, or unspecified chronic kidney disease (principal); N18.32 Chronic kidney disease, stage 3b; R82.90 Unspecified abnormal findings in urine | CPT/HCPCS: 87086 ==

== ENCOUNTER 2025-01-01 07:04 | Outpatient (CLI) | payer OTHER, SELFPAY ==
--- NOTE | 2025-01-01 07:15 | CRLHL7_ITS ---
For Patients: As a result of the Century Cures Act, medical imaging exams and procedure reports are released immediately into your electronic medical record. You may view this report before your referring provider. If you have questions, please contact your health care provider. CLINICAL HISTORY: Chronic Kidney Disease Stage 3 COMPARISON: none TECHNIQUE: Dobbins scale and color Doppler images were acquired of the kidneys and urinary bladder. FINDINGS: Sonographic images reveal a symmetric appearance of the kidneys. There is no evidence of hydronephrosis, mass or calculus. The right kidney measures 10.7cm in length and the left kidney measures 9.9cm in length. The renal cortex appears of normal thickness. Prostate measures 5.0 x 4.8 x 6.5 cm with a volume of 82 cc. Color Doppler images reveal a normal appearance of both ureteral jets. Bladder wall appears trabeculated. IMPRESSION: No hydronephrosis. Enlarged prostate with bladder wall trabeculation. Dictated by Yazan Mireles MD @ 01/01/2025 7:53:33 PM (Electronically Signed)
== END 2025-01-01 07:05 | disposition home or self-care (01) ==
LOC: US 07:05
PROVIDERS: PCP Family Medicine; Visit Provider Internal Medicine Nephrology
DX: N18.30 Chronic kidney disease, stage 3 unspecified (principal); N40.0 Benign prostatic hyperplasia without lower urinary tract symptoms
CPT/HCPCS: 76770

== ENCOUNTER 2025-05-17 09:29 | Outpatient (CLI) | payer OTHER, SELFPAY | END 2025-05-17 09:30 | disposition home or self-care (01) | PROVIDERS: PCP Family Medicine; Visit Provider Family Medicine | DX: E78.5 Hyperlipidemia, unspecified (principal); E08.40 Diabetes mellitus due to underlying condition with diabetic neuropathy, unspecified; N28.9 Disorder of kidney and ureter, unspecified; N40.1 Benign prostatic hyperplasia with lower urinary tract symptoms | CPT/HCPCS: 80061; 80069; 80076; 82043; 82570; G0103 ==

== ENCOUNTER 2025-07-17 12:10 | Outpatient (CLI) | payer OTHER, SELFPAY | END 2025-07-17 12:11 | disposition home or self-care (01) | PROVIDERS: PCP Family Medicine; Visit Provider Internal Medicine Nephrology | DX: N18.30 Chronic kidney disease, stage 3 unspecified (principal) | CPT/HCPCS: 82397; 83970; 84443 ==